=== PATIENT | male | born 1940 | race Caucasian/White ===

== ENCOUNTER 2022-12-27 22:08 | Emergency (ER) | payer MEDICARE, SELFPAY ==
[2022-12-27] VITALS (14 sets, daily range): BP systolic 107–172; BP diastolic 51–61; PULSE 42–61; RESP 14–27; TEMP 36.6; O2SAT 93–100; BMI 28.5
--- NOTE | 2022-12-27 22:26 | ED.GENADUL1 ---
HPI - General Adult General Chief complaint: Chest Pain Stated complaint: CHEST PAIN Time Seen by Provider: 12/27/22 22:15 Source: patient Mode of arrival: walk-in Limitations: no limitations History of Present Illness HPI narrative: patient presents complaining of dyspnea for the past week with exertion. States he will become short of breath just walking up the stairs from the basement and his heart will race. He is diabetic. No associated chest pain or nausea. Has not been coughing. No ankle edema states his PCP has him keeping a log of his heart rate at home. States his heart rate has been as low as 42 Onset (ago): week(s) Related Data Allergies Allergy/AdvReac Type Severity Reaction Status Date / Time No Known Drug Allergies Allergy Verified 12/27/22 22:14 Review of Systems ROS Status of ROS 10 or more systems reviewed and unremarkable except as noted in history and below Exam Constitutional Vital Signs, click to edit/add: Last Vital Signs Temp 97.9 F 12/27/22 22:14 Pulse 46 L 12/28/22 01:28 Resp 16 12/28/22 01:28 BP 137/54 12/28/22 01:28 Pulse Ox 97 12/28/22 01:28 O2 Del Method Room Air 12/27/22 22:14 Common normals: no apparent distress, average body habitus, oriented x3, no limitations and healthy appearing Eye Common normals: EOMs intact bilaterally and conjunctivae normal Respiratory Common normals: normal respiratory effort, no retractions, no use of accessory muscles and clear to auscultation bilaterally Cardio Common normals: regular rate, regular rhythm, S1 normal heart sound and S2 normal heart sound GI Common normals: Normal to inspection, nondistended, normoactive bowel sounds present, soft to palpation and non-tender Extremity Common normals: normal to inspection and full ROM Neuro Common normals: oriented x3, CN's II-XII intact bilaterally, moves all extremities and no focal motor deficits Psych Appearance: grossly normal Course Vital Signs Vital signs: Vital Signs Temperature 97.9 F 12/27/22 22:14 Pulse Rate 47 L 12/27/22 22:14 Respiratory Rate 16 12/27/22 22:14 Blood Pressure 172/61 H 12/27/22 22:14 Pulse Oximetry 97 12/27/22 22:14 Oxygen Delivery Method Room Air 12/27/22 22:14 Temperature 97.9 F 12/27/22 22:14 Pulse Rate 46 L 12/28/22 01:28 Respiratory Rate 16 12/28/22 01:28 Blood Pressure 137/54 12/28/22 01:28 Pulse Oximetry 97 12/28/22 01:28 Oxygen Delivery Method Room Air 12/27/22 22:14 Medical Decision Making MDM Narrative Medical decision making narrative: patient presents with dyspnea on exertion and bradycardia. Monitor with junctional bradycardia. Troponin is neg. CBC WNL. BMP pending. cxray is clear. Discussed with the Hospitalist who was uncomfortable with the patient staying here without cardiology services. Discussed with hospitalist at [facility] and patient accepted in transfer several times during observation his heart rate would decrease to 40. monitor strip re evaluated several times and remain unchanged with a junctional bradycardia Lab Data Labs: Lab Results 12/27/22 12/28/22 Range/Units 22:27 00:32 WBC 6.9 (4.0-11.0) 10^3/uL RBC 4.40 L (4.70-6.10) 10^6/uL Hgb 13.5 L (14.0-18.0) g/dL Hct 41.0 L (42.0-54.0) % MCV 93.2 (80.0-94.0) fL MCH 30.7 (25.9-34.0) pg MCHC 32.9 (29.9-35.2) g/dL RDW 13.7 (11.0-15.0) % Plt Count 162 (150-450) 10^3/uL MPV 9.4 L (9.5-13.5) fL Neut % (Auto) 43.2 (43.0-75.0) % Lymph % (Auto) 44.2 (20.5-60.0) % Sanders % (Auto) 9.6 (1.7-12.0) % Eos % (Auto) 1.9 (0.9-7.0) % Baso % (Auto) 0.7 (0.2-2.0) % Neut # (Auto) 3.0 (1.4-6.5) 10^3/uL Lymph # (Auto) 3.0 (1.2-3.8) 10^3/uL Sanders # (Auto) 0.7 (0.3-0.8) 10^3/uL Eos # (Auto) 0.1 (0.0-0.7) 10^3/uL Baso # (Auto) 0.1 (0.0-0.1) 10^3/uL Abs Immat Gran (auto) 0.03 (0.00-0.03) 10^3/uL Imm/Tot Granulo (auto) 0.4 (0.0-0.5) % Carbon Dioxide 26.5 (21.0-32.0) mmol/L Anion Gap 4.5 BUN 29.0 H (7.0-18.0) mg/dL Creatinine 1.73 H (0.70-1.30) mg/dL Est GFR ( Amer) 46 L (>=60) Est GFR (Non-Af Amer) 38 L (>=60) BUN/Creatinine Ratio 16.8 Glucose 256 H (74-106) mg/dL Calcium 8.6 (8.5-10.1) mg/dL Troponin I High Sens 20.1 20.4 (4.0-76.1) pg/mL NT-Pro-B Natriuret Pep 177.0 (<=1800.0) pg/mL Critical Care Time Critical Care Time Total Critical Care Time: 60 Discharge Plan Discharge Chief Complaint: Chest Pain Clinical Impression: Dyspnea on effort, Junctional bradycardia Patient Disposition: er Acute Care Hospital Discharge Location: [facility]
--- NOTE | 2022-12-27 22:29 | XR_ITS ---
[address] [address] Patient Name: JOSE MIGUEL ANDERSON MRN: [id number] date: 1940 Sex: M Assigned Patient Location: ER Current Patient Location: ED.MAIN Accession/Order Number: [id number] Exam Date: 12/27/2022 22:40 Report Date: 12/27/2022 23:19 At the request of: STANLEY DEARS Procedure: XR chest 1V EXAM: XR chest 1V HISTORY: dyspnea COMPARISON: Chest x-ray 11/28/2020 TECHNIQUE: Single AP radiograph of the chest FINDINGS: No pneumothorax, pleural effusion or consolidation. Normal heart size. No acute osseous abnormality. XR/XR chest 1V IMPRESSION: No acute cardiopulmonary process. Electronically authenticated by: CHARLIE RODRIGUEZ Date: 12/27/2022 23:19
--- NOTE | 2022-12-27 22:29 | ECG_ITS ---
[facility] Test Date: 2022-12-28 Pat Name: JOSE MIGUEL ANDERSON Department: Room: - Gender: Male [employer] Supervisor: : 1940 Requested By: [id number] Order Number: [id number] Reading MD: MARIA ANTONIA BARRIENTOS Measurements Intervals Irwin Rate: 44 P: -[id number] GA: -[id number] QRS: -84 QRSD: 110 T: 1 QT: 448 QTc: 397 Interpretive Statements 1430 Undetermined rhythm (Possible supraventricular bradycardia) 1470 with occasional supraventricular premature complexes 2420 RSR (QR) in lead V1/V2, consistent with right ventricular conduction delay 3334 Anterolateral myocardial infarction, age undetermined 3634 Inferior myocardial infarction, age undetermined [address] depression 8102 Low QRS voltage in chest leads 9150 abnormal ECG No previous ECG available for comparison Electronically Signed On 12-28-2022 18:20:23 EDT by MARIA ANTONIA BARRIENTOS
[2022-12-27 22:54] LABS: Basophils Absolute Auto 0.1 10^3/uL (0.0-0.1); Basophils Percent Auto 0.7 % (0.2-2.0); Eosinophils Absolute Auto 0.1 10^3/uL (0.0-0.7); Eosinophils Percent Auto 1.9 % (0.9-7.0); Hemoglobin 13.5 g/dL (14.0-18.0); Immature Granulocytes Abs Auto 0.03 10^3/uL (0.00-0.03); Immature Granulocytes Pct Auto 0.4 % (0.0-0.5); Lymphocytes Percent Auto 44.2 % (20.5-60.0); Mean Corpuscular HGB Conc 32.9 g/dL (29.9-35.2); Mean Corpuscular Hemoglobin 30.7 pg (25.9-34.0); Mean Corpuscular Volume 93.2 fL (80.0-94.0); Mean Platelet Volume 9.4 fL (9.5-13.5); Monocytes Absolute Auto 0.7 10^3/uL (0.3-0.8); Monocytes Percent Auto 9.6 % (1.7-12.0); Neutrophils Percent Auto 43.2 % (43.0-75.0); Platelet Count 162 10^3/uL (150-450); Red Cell Distribution Width 13.7 % (11.0-15.0); White Blood Count 6.9 10^3/uL (4.0-11.0)
[2022-12-27 23:44] LABS: BUN Creatinine Ratio 16.8; Calcium 8.6 mg/dL (8.5-10.1); Carbon Dioxide 26.5 mmol/L (21.0-32.0); Estimated GFR (African America 46 (>=60); Estimated GFR (Non-African Ame 38 (>=60); Glucose 256 mg/dL (74-106); Troponin I High Sensitivity 20.1 pg/mL (4.0-76.1)
[2022-12-28] VITALS (53 sets, daily range): BP systolic 119–143; BP diastolic 42–74; PULSE 40–84; RESP 14–33; O2SAT 89–99
[2022-12-28 00:53] LABS: Troponin I High Sensitivity 20.4 pg/mL (4.0-76.1)
[2022-12-28] MEDS: ATROPINE SULFATE 1 MG/10 ML SYRINGE IVP (04:00)
[2022-12-28 05:01] LABS: Chloride 104 mmol/L (98-107); Potassium 4.4 mmol/L (3.5-5.1); Sodium 140 mmol/L (136-145)
[2022-12-28 05:55] LABS: Anion Gap 13.9
== END 2022-12-28 08:54 | disposition short-term general hospital (02) ==
PROVIDERS: Emergency Provider Internal Medicine; PCP Internal Medicine
DX: R00.1 Bradycardia, unspecified (principal); R06.09 Other forms of dyspnea; E11.9 Type 2 diabetes mellitus without complications
CPT/HCPCS: 36415; 71045; 80048; 83880; 84484; 85025; 93005; 96374; 99285

== ENCOUNTER 2023-06-12 10:21 | Outpatient (OUT) | payer MEDICARE, SELFPAY ==
--- OUTSIDE RECORDS SUMMARY | 2023-06-12 10:34 | XMS_ITS | CCD ---
Author Organization [facility] Care Team Providers Care Gun Barrel Finisher Name Role Phone VINODONE, DR ROGERS Admitting Unavailable VALONE, DR ROGERS Attending Unavailable VALONE, DR ROGERS Primary Care Unavailable VALONE, DR ROGERS Consulting Unavailable VALONE, DR ROGERS Admitting Unavailable VALONE, DR ROGERS Attending Unavailable VALONE, DR ROGERS Primary Care Unavailable VALONE, DR ROGERS Consulting Unavailable VALONE, DR ROGERS Admitting Unavailable VALONE, DR ROGERS Attending Unavailable VALONE, DR ROGERS Primary Care Unavailable VALONE, DR ROGERS Consulting Unavailable Valone, JR Hugo Ferris Primary Care Provider DO Jarred Cline Admit Provider [phone] MD Katie Osborne Attending Provider SULEIMAN Prakash Other Provider Unavailable DO Aretha Chaparro Other Provider MD Stephanie Steward Other Provider MD Henrry Issa Other Provider MD Farzana Escalera Other Provider MD Hugo Johnson Other Provider BHAVIN Gregorio Other Provider MD Natacha Padron Other Provider MD Kang Douglas Other Provider MD Jordan Bolanos Other Provider Crissy [facility] Nikia Ferris Other Provider MD Lauren Steiner Other Provider JR Hugo Moser Primary Care Provider [phone] DO Jarred Cline Admit Provider [phone] MD Katie Osborne Attending Provider [phone] SULEIMAN Prakash Other Provider Unavailable DO Aretha Chaparro Other Provider MD Stephanie Steward Other Provider MD Henrry Issa Other Provider MD Farzana Escalera Other Provider MD Hugo Johnson Other Provider BHAVIN Gregorio Other Provider MD Natacha Padron Other Provider MD Kang Douglas Other Provider MD Jordan Bolanos Other Provider Crissy [facility] Nikia Ferris Other Provider MD Lauren Steiner Other Provider [phone] MD Henrry Issa Attending Provider Hugo Moser DO Primary Care Provider HENRRY ISSA Referring Unavailable HUGO MOSER Primary Care UnavailHENRRY Brito Attending Unavailable HUGO MOSER Primary Care UnavailHENRRY Brito Referring Unavailable Hugo Moser MD Primary Care Provider [phone] JR Hugo Moser Primary Care Provider [phone] MD Henrry Issa Referring Provider BHAVIN Gregorio Attending Provider Hugo Moser Primary Care Unavailable Henrry Issa Referring Unavail able Sangita Salas Admitting Unavailable Sangita Salas Attending Unavailable Hugo Moser Primary Care Unavailable Henrry Issa Admitting Unavail able Henrry Issa Attending Unavail able Katie Osborne Attending Unavailable Jarred Cline Admitting Unavailable Hugo Moser Primary Care Unavailable Ana Maria Prakash Consulting Unavailable Aretha Chaparro Consulting Unavailable Stephanie Steward Consulting Unavailable Henrry Issa Consulting Unavail able Farzana Escalera Consulting Unavailable Hugo Johnson Consulting Unavailab Sangita Montalvo Consulting Unavailable Natacha Padron Consulting Unavailable Kang Douglas Consulting Unavailab Jordan Carty Consulting Unavailable Nikia Woodward Consulting Unavailable Lauren Steiner Consulting Unavailable TRIP BROWN Attending Unavailable TRIP BROWN Referring Unavailable JR. CÁRDENAS GEORGE C Attending Unavailpamela ble Allergies Allergy Classification Reported Allergen(s) Allergy Type Date of Onset Reaction(s) Facility (1 source) ALLERGIES NOT ON FILE; Translations: [ALLERGIES NOT ON FILE] Propensity to adverse reactions (disorder) [facility] 3 Repository Medications Current Medications Medication Drug Class(es) Dates Sig (Normalized) Sig (Original) acarbose 100 mg oral tablet (5 sources) alpha-Glucosidase Inhibitor Start: 12-28-2022 take 100 mg by mouth once daily Acarbose Active 100 MG PO Daily December 27, 2022 11:00pm Start: 09-12-2022 take 1 tablet by dannie th three times daily at mealtime acarbose (Precose) 100 mg tablet Take 1 tablet (100 mg) by mouth 3 times a day with meals. 0 09/12/2022 Active acarbose (Precos e) 100 MG tablet 2 (two) times a day 0 Active clindamycin 300 mg oral capsule (3 sources) Lincosamide Antibacterial Start: 12-31-2022 take 600 mg by mouth three times daily Clindamycin Hcl Active 600 MG PO Three times daily 12 2 December 30, 2022 11:00pm doxycycline monohydrate 100 mg oral capsule (1 source) Tetracycline-class Drug Start: 05-12-2022 take 1 capsule by mouth twice daily doxycycline (Monodox) 100 mg capsule Take 1 capsule (100 mg) by mouth 2 times a day. 0 05/12/2022 Active empagliflozin 25 mg oral tablet (5 sources) Sodium-Glucose Cotransporter 2 Inhibitor Start: 11-10-2022 take 1 tablet by mouth once daily Empagliflozin (Jardiance) 25 mg tablet Active 25 MG PO Daily December 27, 2022 11:00pm take 12.5 mg by mouth in the mor harry Jardiance 25 MG Take 12.5 mg by mouth in the morning. 0 Active ezetimibe 10 mg oral tablet (5 sources) Dietary Cholesterol Absorption Inhibitor Start: 12-16-2022 take 10 mg by mouth once daily Ezetimibe Active 10 MG PO Daily December 27, 2022 11:00pm take 5 mg by mouth in the mornin g ezetimibe (Zetia) 10 MG tablet Take 5 mg by mouth in the morning. 0 Active Finerenone (KERENDIA PO) (1 source) Finerenone (KERE NDIA PO) Take by mouth 0 Active 24 hr metFORMIN hydrochloride 1000 mg / SITagliptin 100 mg extended release oral tablet (5 sources) Biguanide, Dipeptidyl Peptidase 4 Inhibitor Start: 3 take 1 tablet by mouth once daily Sitagliptin Phos-Metformin (Janumet Xr) 100-1,000 mg tablet, ER multiphase 24 hr Active 100 - 1000 TAB PO Daily December 27, 2022 11:00pm take 1 tablet by dannie th every twenty-four hours in the morning Janumet XR 100-1000 MG per 24 hr tablet Take 1 tablet by mouth in the morning. 0 Active rivaroxaban 20 mg oral tablet (4 sources) Factor Xa Inhibitor Start: 12-08-2022 Rivaroxaban (Xarelto) 20 mg tablet Active MG TABLET December 29, 2022 11:00pm rosuvastatin calcium 40 mg oral tablet (5 sources) HMG-CoA Reductase Inhibitor Start: 11-11-2022 take 40 mg by mouth once daily Rosuvastatin Active 40 MG PO Daily December 27, 2022 11:00pm sacubitril 24 mg / valsartan 26 mg oral tablet (6 sources) Angiotensin 2 Receptor Maria Victoria Start: 12-28-2022 End: 01-14-2023 take 1 tablet by mouth once daily Sacubitril-Valsart an (Entresto) 24-26 mg Tablet Active 1 TAB PO Daily December 27, 2022 11:00pm Sacubitril-Valsa rtan (ENTRESTO PO) Take by mouth 0 Active Completed/Discontinued Medications Medication Drug Class(es) Dates Sig (Normalized) Sig (Original) 5 ml bupivacaine hydrochloride 5 mg/ml injection (2 sources) Amide Local Anesthetic Start: End: 4 bupivacaine PF (Marcaine) 0.5 % injection 0.5 mL losartan potassium 25 mg oral tablet (1 source) Angiotensin 2 Receptor Maria Victoria Start: 3 End: 3 take 1 tablet by mouth once daily before mealtime losartan (Cozaar) 25 mg tablet Take 1 tablet (25 mg) by mouth once daily in the morning. Take before meals. 0 06/12/2022 01/14/2023 Discontinued (Discontinued by another clinician) 1 ml methylPREDNISolone acetate 40 mg/ml injection (2 sources) Corticosteroid Start: 4 End: 4 methylPREDNISolone acetate (DEPO-Medrol) injection 40 mg Problems Active Problems Problem Classification Problem Date Documented Da te Episodic/Chronic Cardiac dysrhythmias (6 sources) Bradycardia; Translations: [Bradycardia, unspecified] 12-31-2022 Episodic Conduction disorders (18 sources) Mobitz type II atrioventricular block; Translations: [Atrioventricular block, second degree] Onset: 3 12-29-2022 Chronic Congestive heart failure; nonhypertensive (4 sources) Chronic diastolic (congestive) heart failure; Translations: [CHRONIC DIASTOLIC HEART FAILURE] Onset: 3 Chronic Diabetes mellitus with complications (2 sources) Type 2 diabetes mellitus with hyperglycemia; Translations: [Type 2 diabetes mellitus with diabetic chronic kidney disease] Onset: 2 Chronic Diabetes mellitus without complication (7 sources) Diabetes mellitus; Translations: [Type 2 diabetes mellitus without complications] Onset: 3 12-28-2022 Chronic Disorders of lipid metabolism (1 source) Mixed hyperlipidemia; Translations: [Mixed hyperlipidemia] Onset: 3 01-14-2023 Chronic Essential hypertension (6 sources) Hypertensive disorder; Translations: [Essential (primary) hypertension] Onset: 3 12-28-2022 Chronic Hypertension with complications and secondary hypertension (1 source) Hypertensive chronic kidney disease with stage 1 through stage 4 chronic kidney disease, or unspecified chronic kidney disease; Translations: [HTN CKD W/STAGE 1-4 CKD/UNS CKD] Onset: 2 Chronic Osteoarthritis (1 source) Arthritis of right acromioclavicular joint; Translations: [Primary osteoarthritis, right shoulder] 04-08-2023 Chronic Other aftercare (1 source) Other prison (current) drug therapy; Translations: [OTH PRISON 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 THERAPY] Onset: 3 Episodic Other non-traumatic joint disorders (1 source) Rotator cuff arthropathy of right shoulder; Translations: [Other specific arthropathies, not elsewhere classified, right shoulder] 04-08-2023 Chronic Other non-traumatic joint disorders (1 source) Pain in right shoulder; Translations: [Pain in joint, shoulder region] 04-07-2023 Episodic Other nutritional; endocrine; and metabolic disorders (2 sources) Obese class I; Translations: [Obesity, unspecified] Onset: 3 01-14-2023 Chronic Other nutritional; endocrine; and metabolic disorders (2 sources) Obesity, unspecified; Translations: [Obesity, unspecified] Onset: 3 Chronic Shauna-; endo-; and myocarditis; cardiomyopathy (except that caused by tuberculosis or sexually transmitted disease) (1 source) Cardiomyopathy; Translations: [Other cardiomyopathies] Onset: 3 01-14-2023 Chronic Phlebitis; thrombophlebitis and thromboembolism (1 source) Deep venous thrombosis; Translations: [Acute embolism and thrombosis of unspecified deep veins of unspecified lower extremity] Onset: 3 01-14-2023 Episodic Unclassified (1 source) CHRN KIDNEY DISEASE STG 3 UNSP; Translations: [CHRN KIDNEY DISEASE STG 3 UNSP] Onset: 2 Unclassified (1 source) Encounter for checking and testing of cardiac pacemaker pulse generator [battery]; Translations: [Encounter for checking and testing of cardiac pacemaker pulse generator [battery]] Onset: 4 Unclassified (1 source) Bradycardia, unspecified; Translations: [Bradycardia, unspecified] Onset: 3 Past or Other Problems Problem Classification Problem Date Documented Da te Episodic/Chronic Acute and unspecified renal failure (6 sources) Acute renal failure syndrome; Translations: [Acute kidney failure, unspecified] Onset: 12-28-2022 12-28-2022 Episodic Unclassified (1 source) Onset: 01-14-2023 01-14-2023 Results Test Name Value Interpretation Reference Range Facility XR chest 2V*on 04-15-2023 XR chest 2V* [facility] Main [address] [address] XRay Report Signed Patient: Emmanuel Anderson MR#: [id number] 49 : 1940 Acct:[id number] Age/Sex: 82 / M ADM Date: 04/15/23 Loc: [facility] Room: Type: [facility] Attending Dr: Sangita Salas FIBERGLASS QUALITY TECHNICIAN Copies to: BHAVIN Beasley MD Ordering Provider: Henrry Issa MD Date of Service: 04/15/23 XR/XR chest 2V*: Z95.0 PA AND LATERAL CHEST: CLINICAL HISTORY: Follow-up pacemaker COMPARISON: 01/08/2023 A left-sided pacemaker is again visualized unchanged from the prior. There is shallow inspiration. There is no developing consolidation, effusion or pneumothorax. The cardiac, hilar and mediastinal silhouettes are stable. There is no vascular congestion. The visualized bony thorax is intact. XR/XR chest 2V* IMPRESSION: STABLE PACEMAKER. NO ACUTE FINDINGS.. Impression dictated by: Niki Scott M.D.04/15/2023 2:33 PM Dictation Location: [place] [address] Transcribed By: [facility] 04/15/23 1433 Dictated By: Niki Scott MD 04/15/23 1431 Signed By: 04/15/23 1433 [facility] L Inj/Asp: R subacromial bur saon 04-08-2023 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 Pt given injection Right Shoulder SA space with 2ml of 2 % lidocaine (Code 41560 RT) Procedure, treatment alternatives, risks and benefits explained, specific risks discussed. Consent was given by the patient. Counts include 234 beds at the [facility] M Inj/Asp: R acromioclavicul garrett 04-08-2023 TODD Driver 04/08/2023 1:57 PM M Inj/Asp: R acromioclavicular on 04/08/2023 1:54 PM Indications: pain Details: 21 G needle, anterolateral approach Medications: 0.5 mL bupivacaine PF 0.5 % Outcome: tolerated well, no immediate complications Given with 0.5ml of 2% lidocaine. Moderate improvement in pain post injection. Procedure, treatment alternatives, risks and benefits explained, specific risks discussed. Consent was given by the patient. Patient was prepped and draped in the usual sterile fashion. Counts include 234 beds at the [facility] XR chest 2V*on 01-08-2023 XR chest 2V* [facility] [place] [place] [address] XRay Report Signed Patient: Emmanuel Anderson MR#: [id number] 49 : 1940 Acct:[id number] Age/Sex: 82 / M ADM Date: 01/08/23 Loc: Room: Type: [facility] Attending Dr: Henrry Issa MD Copies to: Henrry Issa MD Ordering Provider: Henrry Issa MD Date of Service: 01/08/23 XR/XR chest 2V*: I44.1 Plain film chest 2 view HISTORY: Pacemaker insertion. COMPARISON: 12/31/22 FINDINGS: SUPPORT DEVICES: None POSTSURGICAL CHANGES: Cardiac device remains intact. HEART: Within normal limits PULMONARY [place]: Within normal limits MEDIASTINUM: Unremarkable LUNGS AND PLEURA: No acute lung process, pleural effusion or pneumothorax identified. BONY STRUCTURES: Thoracic spondylosis. ADDITIONAL FINDINGS None XR/XR chest 2V* IMPRESSION: No acute process. Intact cardiac device. Impression dictated by: Bradley Uribe M.D.01/08/2023 5:16 PM Dictation Location: [place] [address] Transcribed By: [facility] 01/08/231715 Dictated By: Bradley Uribe DO 01/08/231714 Signed By: 01/08/231715 [facility] Basic Metabolic Panelon 11-0 Anion gap [Moles/Vol] 12.2 mmol/L Normal 6.0-15.0 [facility] Comment on above: Performed By: #### C BC, BMP, MG ####[facility] [address] [place] [address] [facility] Calcium [Mass/Vol] 8.9 mg/dL Normal 8.6-10.3 [facility] Comment on above: Performed By: #### C BC, BMP, MG ####[facility] [place] [address] [place] Chloride [Moles/Vol] 106 mmol/L Normal 98-107 [facility] Comment on above: Performed By: #### C BC, BMP, MG ####[facility] [place] [address] [facility] CO2 [Moles/Vol] 22.9 mmol/L Normal 21.0-31.0 [facility] Comment on above: Performed By: #### C BC, BMP, MG ####[place] [address] [place] [address] [facility] Creatinine [Mass/Vol] 1.20 mg/dL Normal 0.70-1.30 [facility] Comment on above: Performed By: #### C BC, BMP, MG ####[place] [address] [place] [address] [place] Creatinine Clr Calc Pharmacy 48.99 [facility] Comment on above: Performed By: #### C BC, BMP, MG ####[facility] [place] [address] [place] GFR/1.73 sq M.predicted MDRD (S/P/Bld) [Vol rate/Area] mL/min/{1.73_m2} [facility] Comment on above: Performed By: #### C BC, BMP, MG ####[place] [address] [place] [address] [facility] Glucose [Mass/Vol] 175 mg/dL High 70-100 [facility] Comment on above: Result Comment: [place] Glucose Reference Range is dependent on time and content of last meal. Glucose of more than 200 mg/dL in a nonstressed, ambulatory subject supports the diagnosis of Diabetes Mellitus. ADA recommended reference range Performed By: #### C BC, BMP, MG ####[facility] [address] [place] [address] [facility] Potassium [Moles/Vol] 4.1 mmol/L Normal 3.5-5.1 [facility] Comment on above: Performed By: #### C BC, BMP, MG ####[facility] [address] [place] [id number] [facility] Sodium [Moles/Vol] 137 mmol/L Normal 136-145 [facility] Comment on above: Performed By: #### C BC, BMP, MG ####[facility] [address] [place] [id number] [facility] Urea nitrogen [Mass/Vol] 23 mg/dL Normal 7-25 [facility] Comment on above: Performed By: #### C BC, BMP, MG ####[facility] [address] [place] [id number] [facility] Basophils Auto (Bld) [#/Vol] Ordered By: Jarred Cline on 12-31-2022 Basophils (Bld) [#/Vol] 0.0 10*3/uL 0.0-0.2 [facility] Basophils/100 WBC Auto (Bld) Ordered By: Jarred Cline on 12-31-2022 Basophils/100 WBC (Bld) 0.6 % . [facility] Calcium [Mass/volume] in Ser um or PlasmaOrdered By: Jarred Cline on 12-31-2022 Calcium [Mass/Vol] 8.9 mg/dL 8.6-10.3 [facility] Carbon dioxide, total [Moles /volume] in Serum or PlasmaOrdered By: Jarred Cline on 12-31-2022 CO2 [Moles/Vol] 22.9 mmol/L 21.0-31.0 [facility] Chloride [Moles/volume] in S chiquis or PlasmaOrdered By: Jarred Cline on 12-31-2022 Chloride [Moles/Vol] 106 mmol/L 98-107 [facility] Complete Blood Count Auto Di ffon 12-31-2022 Basophils (Bld) [#/Vol] 0.0 10*3/uL Normal 0.0-0.2 [facility] Comment on above: Result Comment: PERF ORMED BY: [facility] [address] [place] [address] PATHOLOGIST HYDRAULIC BOOM OPERATOR GENNY MCMULLEN M.D. Performed By: #### C BC, BMP, MG ####[place] [address] [place] [id number] [facility] Basophils/100 WBC (Bld) 0.6 % Normal . [facility] Comment on above: Performed By: #### C BC, BMP, MG ####[address] Eosinophils (Bld) [#/Vol] 0.1 10*3/uL Normal 0.0-0.45 [facility] Comment on above: Performed By: #### C BC, BMP, MG ####[address] Eosinophils/100 WBC (Bld) 1.6 % Normal . [facility] Comment on above: Performed By: #### C BC, BMP, MG ####[place] [id number] [facility] Erythrocyte distribution width (RBC) [Ratio] 14.9 % High 12.0-14.8 [facility] Comment on above: Performed By: #### C BC, BMP, MG ####[place] [id number] [facility] Hematocrit (Bld) [Volume fraction] 39.1 % Normal 38.8-50.0 [facility] Comment on above: Performed By: #### C BC, BMP, MG ####[place] [id number] [facility] Hemoglobin (Bld) [Mass/Vol] 13.0 g/dL Normal 13.0-17.0 [facility] Comment on above: Performed By: #### C BC, BMP, MG ####[place] [id number] [facility] Lymphocytes (Bld) [#/Vol] 1.9 10*3/uL Normal 1.00-4.8 [facility] Comment on above: Performed By: #### C BC, BMP, MG ####[address] Lymphocytes/100 WBC (Bld) 27.7 % Normal . [facility] Comment on above: Performed By: #### C BC, BMP, MG ####[place] [id number] [facility] MCH (RBC) [Entitic mass] 30.5 pg Normal 27.5-35.2 [facility] Comment on above: Performed By: #### C BC, BMP, MG ####[address] MCV (RBC) [Entitic vol] 91.5 fL Normal 83.5-101 [facility] Comment on above: Performed By: #### C BC, BMP, MG ####[address] Mean Corpuscular HGB Conc 33.3 g/dL Normal 32.5-35.6 [facility] Comment on above: Performed By: #### C BC, BMP, MG ####[address] Monocytes (Bld) [#/Vol] 0.6 10*3/uL Normal 0.0-0.8 [facility] Comment on above: Performed By: #### C BC, BMP, MG ####[address] Monocytes/100 WBC (Bld) 8.9 % Normal . [facility] Comment on above: Performed By: #### C BC, BMP, MG ####[address] Neutrophils (Bld) [#/Vol] 4.1 10*3/uL Normal 1.8-7.7 [facility] Comment on above: Performed By: #### C BC, BMP, MG ####[address] Neutrophils/100 WBC (Bld) 61.2 % Normal . [facility] Comment on above: Performed By: #### C BC BMP, MG ####[address] NRBC% 0.0 /100{WBC} Normal 0-0.5 [facility] Comment on above: Performed By: #### C BC BMP, MG ####[address] Platelet mean volume (Bld) [Entitic vol] 7.2 fL Normal 6.6-10.1 [facility] Comment on above: Performed By: #### C GILBERTO BMP, MG ####[address] Platelets (Bld) [#/Vol] 148 10*3/uL Low 150-450 [facility] Comment on above: Performed By: #### C BC BMP, MG ####[address] RBC (Bld) [#/Vol] 4.27 10*6/uL Normal 3.90-5.60 [facility] Comment on above: Performed By: #### C BC BMP, MG ####[address] WBC (Bld) [#/Vol] 6.7 10*3/uL Normal 4.1-10.5 [facility] Comment on above: Performed By: #### Elias BC BMP, MG ####[address] Creatinine [Mass/volume] in Serum or PlasmaOrdered By: Jarred Cline on 12-31-2022 Creatinine [Mass/Vol] 1.20 mg/dL 0.70-1.30 [facility] Eosinophils Auto (Bld) [#/Vo l]Ordered By: Jarred Cline on 12-31-2022 Eosinophils (Bld) [#/Vol] 0.1 10*3/uL 0.0-0.45 [facility] Eosinophils/100 WBC Auto (Bl d)Ordered By: Jarred Cline on 12-31-2022 Eosinophils/100 WBC (Bld) 1.6 % . [facility] Erythrocyte distribution wid th Auto (RBC) [Ratio]Ordered By: Jarred Cline on 12-31-2022 Erythrocyte distribution width (RBC) [Ratio] 14.9 % 12.0-14.8 [facility] Glucose [Mass/volume] in Ser um or PlasmaOrdered By: Jarred Cline on 12-31-2022 Glucose [Mass/Vol] 175 mg/dL 70-100 [facility] Comment on above: ADA recommended refe rence rangeRandom Glucose Reference Range is dependent on time and content of last meal. Glucose of more than 200 mg/dL in a nonstressed, ambulatory subject supports the diagnosis of Diabetes Mellitus. Hematocrit Auto (Bld) [Volum e fraction]Ordered By: Jarred Cline on 12-31-2022 Hematocrit (Bld) [Volume fraction] 39.1 % 38.8-50.0 [facility] Hemoglobin [Mass/volume] in BloodOrdered By: Jarred Cline on 12-31-2022 Hemoglobin (Bld) [Mass/Vol] 13.0 g/dL 13.0-17.0 [facility] Leukocytes [#/volume] correc adela for nucleated erythrocytes in Blood by Automated counOrdered By: Jarred Cline on 12-31-2022 WBC corrected for nucl RBC Auto (Bld) [#/Vol] 6.7 10*3/uL 4.1-10.5 [facility] Lymphocytes Auto (Bld) [#/Vo l]Ordered By: Jarred Cline on 12-31-2022 Lymphocytes (Bld) [#/Vol] 1.9 10*3/uL 1.00-4.8 [facility] Lymphocytes/100 WBC Auto (Bl d)Ordered By: Jarred Cline on 12-31-2022 Lymphocytes/100 WBC (Bld) 27.7 % . [facility] MCH Auto (RBC) [Entitic mass ]Ordered By: Jarred Cilne on 12-31-2022 MCH (RBC) [Entitic mass] 30.5 pg 27.5-35.2 [facility] MCHC Auto (RBC) [Mass/Vol]Or dered By: Jarred Cline on 12-31-2022 MCHC (RBC) [Mass/Vol] 33.3 g/dL 32.5-35.6 [facility] MCV Auto (RBC) [Entitic vol] Ordered By: Jarred Cline on 12-31-2022 MCV (RBC) [Entitic vol] 91.5 fL 83.5-101 [facility] Magnesiumon 12-31-2022 Magnesium [Mass/Vol] 2.1 mg/dL Normal 1.9-2.7 [facility] Comment on above: Result Comment: PERF ORMED BY: [facility] [address] [place] [address] PATHOLOGIST HYDRAULIC BOOM OPERATOR GENNY MCMULLEN M.D. Performed By: #### C BC, BMP, MG ####[facility] [id number] [place] [address] [facility] Magnesium [Mass/volume] in S chiquis or PlasmaOrdered By: Jarred Cline on 12-31-2022 Magnesium [Mass/Vol] 2.1 mg/dL 1.9-2.7 [facility] Monocytes Auto (Bld) [#/Vol] Ordered By: Jarred Cline on 12-31-2022 Monocytes (Bld) [#/Vol] 0.6 10*3/uL 0.0-0.8 [facility] Monocytes/100 WBC Auto (Bld) Ordered By: Jarred Cline on 12-31-2022 Monocytes/100 WBC (Bld) 8.9 % . [facility] Neutrophils Auto (Bld) [#/Vo l]Ordered By: Jarred Cline on 12-31-2022 Neutrophils (Bld) [#/Vol] 4.1 10*3/uL 1.8-7.7 [facility] Neutrophils/100 WBC Auto (Bl d)Ordered By: Jarred Cline on 12-31-2022 Neutrophils/100 WBC (Bld) 61.2 % . [facility] No Panel InformationOrdered By: Jarred Cline on 11-01-2023 Estimated GFR (CKD-EPI) > 60.0 mL/Min [facility] Creatinine Clearance (Chem 48.99 [facility] Nucleated erythrocytes [Pres ence] in Blood by Automated countOrdered By: Jarred Cline on 12-31-2022 Nucleated RBC Auto Ql (Bld) 0.0 /100{WBC} 0-0.5 [facility] Platelet mean volume Auto (B ld) [Entitic vol]Ordered By: Jarred Cline on 12-31-2022 Platelet mean volume (Bld) [Entitic vol] 7.2 fL 6.6-10.1 [facility] Platelets Auto (Bld) [#/Vol] Ordered By: Jarred Cline on 12-31-2022 Platelets (Bld) [#/Vol] 148 10*3/uL 150-450 [facility] Potassium [Moles/volume] in Serum or PlasmaOrdered By: Jarred Cline on 12-31-2022 Potassium [Moles/Vol] 4.1 mmol/L 3.5-5.1 [facility] RBC Auto (Bld) [#/Vol]Ordere d By: Jarred Cline on 12-31-2022 RBC (Bld) [#/Vol] 4.27 10*6/uL 3.90-5.60 [facility] Serum or plasma anion gap de terminationOrdered By: Jarred Cline on 12-31-2022 Anion gap [Moles/Vol] 12.2 mmol/L 6.0-15.0 [facility] Sodium [Moles/volume] in Ser um or PlasmaOrdered By: Jarred Cline on 12-31-2022 Sodium [Moles/Vol] 137 mmol/L 136-145 [facility] Urea nitrogen [Mass/volume] in Serum or PlasmaOrdered By: Jarred Cline on 12-31-2022 Urea nitrogen [Mass/Vol] 23 mg/dL 7-25 [facility] WBC Auto (Bld) [#/Vol]Ordere d By: Jarred Cline on 12-31-2022 WBC (Bld) [#/Vol] 6.7 10*3/uL 4.1-10.5 [facility] XR chest 2V*on 12-31-2022 XR chest 2V* [facility] [place] [address] [place] [address] XRay Report Signed Patient: Emmanuel Anderson MR#: [id number] 49 : 1940 Acct:[id number] Age/Sex: 82 / M ADM Date: 12/28/22 Loc: Room: [address] [place] [address] Type: ADM IN Attending Dr: Katie Osborne MD Copies to: MD Henrry Cartwright MD Ordering Provider: Henrry Issa MD Date of Service: 12/31/22 XR/XR chest 2V*: Rule out pneumothorax on only new implants cases in am Plain film chest 2 view HISTORY: Postop pacemaker placement COMPARISON: 12/30/22 FINDINGS: SUPPORT DEVICES: None POSTSURGICAL CHANGES: Cardiac device remains intact. HEART: Within normal limits PULMONARY [place]: Within normal limits MEDIASTINUM: Unremarkable LUNGS AND PLEURA: No acute lung process, pleural effusion or pneumothorax identified. Calcified pleural plaquing. The minimal basilar scarring/atelectasis. BONY STRUCTURES: Intact ADDITIONAL FINDINGS None XR/XR chest 2V* IMPRESSION: No acute process. Impression dictated by: Bradley Uribe M.D.12/31/2022 8:03 AM Dictation Location: [place] [address] Transcribed By: [facility] 12/31/22 0803 Dictated By: Bradley Uribe DO 12/31/22 0801 Signed By: 12/31/22 0803 Normal [facility] Activated partial thrombopla stin time (aPTT) in platelet poor plasma by coagulation aOrdered By: Henrry Issa on 12-30-2022 aPTT Coag (PPP) [Time] 30.2 s 25.1-36.5 [facility] Comment on above: A hematocrit value g reater than 55% may lead to inaccurate results in coagulation testing. Patients having hematocrit values >55% require a special collection tube for coagulation studies. Please contact the laboratory at [phone] for redraw instructions. Basic Metabolic Panelon 10-3 Anion gap [Moles/Vol] 10.6 mmol/L Normal 6.0-15.0 [facility] Comment on above: Performed By: #### M G, PTT, PT, CBC, BMP #### [facility] [address] Calcium [Mass/Vol] 9.4 mg/dL Normal 8.6-10.3 [facility] Comment on above: Performed By: #### M G, PTT, PT, CBC, BMP #### [facility] [address] Chloride [Moles/Vol] 107 mmol/L Normal 98-107 [facility] Comment on above: Performed By: #### M G, PTT, PT, CBC, BMP #### [facility] [address] CO2 [Moles/Vol] 27.0 mmol/L Normal 21.0-31.0 [facility] Comment on above: Performed By: #### M G, PTT, PT, CBC, BMP #### [facility] [address] [place] [address] [place] Creatinine [Mass/Vol] 1.58 mg/dL High 0.70-1.30 [facility] Comment on above: Performed By: #### M G, PTT, PT, CBC, BMP #### [facility] [address] [place] [address] [place] Creatinine Clr Calc Pharmacy 37.51 [facility] Comment on above: Performed By: #### M G, PTT, PT, CBC, BMP #### [facility] [address] [place] [address] [place] GFR/1.73 sq M.predicted MDRD (S/P/Bld) [Vol rate/Area] 43.132 mL/min/{1.73_m2} [facility] Comment on above: Performed By: #### M G, PTT, PT, CBC, BMP #### [facility] [address] [place] [address] [place] Glucose [Mass/Vol] 254 mg/dL High 70-100 [facility] Comment on above: Result Comment: [place] Glucose Reference Range is dependent on time and content of last meal. Glucose of more than 200 mg/dL in a nonstressed, ambulatory subject supports the diagnosis of Diabetes Mellitus. ADA recommended reference range Performed By: #### M G, PTT, PT, CBC, BMP #### [facility] [address] Potassium [Moles/Vol] 4.6 mmol/L Normal 3.5-5.1 [facility] Comment on above: Performed By: #### M G, PTT, PT, CBC, BMP #### [facility] [address] Sodium [Moles/Vol] 140 mmol/L Normal 136-145 [facility] Comment on above: Performed By: #### M G, PTT, PT, CBC, BMP #### [address] Urea nitrogen [Mass/Vol] 30 mg/dL High 7-25 [facility] Comment on above: Performed By: #### M G, PTT, PT, CBC, BMP #### [address] Complete Blood Count Auto Di ffon 12-30-2022 Basophils (Bld) [#/Vol] 0.1 10*3/uL Normal 0.0-0.2 [facility] Comment on above: Result Comment: PERF ORMED BY: [place] [address] PATHOLOGIST HYDRAULIC BOOM OPERATOR GENNY MCMULLEN M.D. Performed By: #### M G, PTT, PT, CBC, BMP #### [place] [address] [place] Basophils/100 WBC (Bld) 1.1 % Normal . [facility] Comment on above: Performed By: #### M G, PTT, PT, CBC, BMP #### [address] Eosinophils (Bld) [#/Vol] 0.1 10*3/uL Normal 0.0-0.45 [facility] Comment on above: Performed By: #### M G, PTT, PT, CBC, BMP #### [address] Eosinophils/100 WBC (Bld) 1.7 % Normal . [facility] Comment on above: Performed By: #### M G, PTT, PT, CBC, BMP #### [address] Erythrocyte distribution width (RBC) [Ratio] 15.2 % High 12.0-14.8 [facility] Comment on above: Performed By: #### M G, PTT, PT, CBC, BMP #### [address] Hematocrit (Bld) [Volume fraction] 41.4 % Normal 38.8-50.0 [facility] Comment on above: Performed By: #### M G, PTT, PT, CBC, BMP #### [address] Hemoglobin (Bld) [Mass/Vol] 13.8 g/dL Normal 13.0-17.0 [facility] Comment on above: Performed By: #### M G, PTT, PT, CBC, BMP #### [address] Lymphocytes (Bld) [#/Vol] 1.9 10*3/uL Normal 1.00-4.8 [facility] Comment on above: Performed By: #### M G, PTT, PT, CBC, BMP #### [address] Lymphocytes/100 WBC (Bld) 31.9 % Normal . [facility] Comment on above: Performed By: #### M G, PTT, PT, CBC, BMP #### [address] MCH (RBC) [Entitic mass] 30.5 pg Normal 27.5-35.2 [facility] Comment on above: Performed By: #### M G, PTT, PT, CBC, BMP #### [facility] [address] [place] [address] MCV (RBC) [Entitic vol] 91.5 fL Normal 83.5-101 [facility] Comment on above: Performed By: #### M G, PTT, PT, CBC, BMP #### [address] Mean Corpuscular HGB Conc 33.3 g/dL Normal 32.5-35.6 [facility] Comment on above: Performed By: #### M G, PTT, PT, CBC, BMP #### [address] Monocytes (Bld) [#/Vol] 0.6 10*3/uL Normal 0.0-0.8 [facility] Comment on above: Performed By: #### M G, PTT, PT, CBC, BMP #### [address] Monocytes/100 WBC (Bld) 9.6 % Normal . [facility] Comment on above: Performed By: #### M G, PTT, PT, CBC, BMP #### [address] Neutrophils (Bld) [#/Vol] 3.3 10*3/uL Normal 1.8-7.7 [facility] Comment on above: Performed By: #### M G, PTT, PT, CBC, BMP #### [address] Neutrophils/100 WBC (Bld) 55.7 % Normal . [facility] Comment on above: Performed By: #### M G, PTT, PT, CBC, BMP #### [address] NRBC% 0.1 /100{WBC} Normal 0-0.5 [facility] Comment on above: Performed By: #### M G, PTT, PT, CBC, BMP #### [address] Platelet mean volume (Bld) [Entitic vol] 7.1 fL Normal 6.6-10.1 [facility] Comment on above: Performed By: #### M G, PTT, PT, CBC, BMP #### [facility] [address] Platelets (Bld) [#/Vol] 168 10*3/uL Normal 150-450 [facility] Comment on above: Performed By: #### M G, PTT, PT, CBC, BMP #### [facility] [address] RBC (Bld) [#/Vol] 4.52 10*6/uL Normal 3.90-5.60 [facility] Comment on above: Performed By: #### M G, PTT, PT, CBC, BMP #### [facility] [address] WBC (Bld) [#/Vol] 5.9 10*3/uL Normal 4.1-10.5 [facility] Comment on above: Performed By: #### M G, PTT, PT, CBC, BMP #### [facility] [address] ECG 12 lead ECGon 12-30-2022 ECG 12 lead ECG [facility] [place] [address] [place] [address] Electrocardiograph Report Signed Patient: Emmanuel Anderson MR#: [id number] 49 : 1940 Acct:[id number] Age/Sex: 82 / M ADM Date: 12/28/22 Loc: Room: [address] [place] [address] Type: ADM IN Attending Dr: Katie Osborne MD Ordering Provider: Henrry Issa MD Date of Service: 12/30/22 ECG/ECG 12 lead ECG: pre surgical Copies to: Test Reason : Blood Pressure : / mmHG Vent. Rate : 045 BPM Atrial Rate : 045 BPM P-R Int : 350 ms QRS Dur : 124 ms QT Int : 448 ms P-R-T Axes : 038 -70 035 degrees QTc Int : 387 ms Sinus bradycardia with 1st degree AV block with type I second degree AV block RSR' or QR pattern in V1 suggests right ventricular conduction delay Left anterior fascicular block Anterolateral infarct (cited on or before 28-DEC-2022) Abnormal ECG When compared with ECG of 28-DEC-2022 13:11, No significant change was found Confirmed by KEVIN STALEY [facility], STEPHANIE ([id number]) on 12/30/2022 4:39:33 PM Referred By: Electronically Signed By:STEPHANIE STEWARD MD [facility] Transcribed By: MUS Signed By Stephanie Steward MD, [facility] 12/30/22 1639 Normal [facility] Glucose Glucometer (BldC) [M ass/Vol]Ordered By: Katie Osborne on 12-30-2022 Glucose [Mass/Vol] 183 mg/dL [facility] Comment on above: Random Glucose Refer ence Range is dependent on time and content of last meal. Glucose of more than 200 mg/dL in a nonstressed, ambulatory subject supports the diagnosis of Diabetes Mellitus. Glucose Poct Glucometerson 1 Glucose [Mass/Vol] 183 mg/dL Normal [facility] Comment on above: Result Comment: [place] Glucose Reference Range is dependent on time and content of last meal. Glucose of more than 200 mg/dL in a nonstressed, ambulatory subject supports the diagnosis of Diabetes Mellitus. PERFORMED BY: [facility] [address] [place] [address] PATHOLOGIST HYDRAULIC BOOM OPERATOR GENNY MCMULLEN M.D. Performed By: #### G LULS ####Point of Care testing, Glucose [Mass/Vol] 206 mg/dL Normal [facility] Comment on above: Result Comment: [place] Glucose Reference Range is dependent on time and content of last meal. Glucose of more than 200 mg/dL in a nonstressed, ambulatory subject supports the diagnosis of Diabetes Mellitus. PERFORMED BY: [facility] [address] [place] [address] PATHOLOGIST HYDRAULIC BOOM OPERATOR GENNY MCMULLEN M.D. Performed By: #### G LULS #### Point of Care testing , INR in Platelet poor plasma by Coagulation assayOrdered By: Henrry Issa on 12-30-2022 INR Coag (PPP) [Relative time] 1.1 {INR} Normal [facility] Comment on above: INR Therapeutic Rang e A) Pre- and Peroperative OAT started two weeks before surgery. NOT HIP SURGERY: 1.5 - 2.5 HIP SURGERY: 2 - 3B) Primary and secondary prevention of venous THROMBOSIS: 2 - 3C) Active venous thrombosis, pulmonary embolismand prevention of recurrent venous thrombosis: 2 - 3D) Prevention of arterial thromboembolismincluding patients with mechanical heart valves: 3 - 4.5 Result Comment: INR Therapeutic Range A) Pre- and Peroperative OAT started two weeks before surgery. NOT HIP SURGERY: 1.5 - 2.5 HIP SURGERY: 2 - 3 B) Primary and secondary prevention of venous THROMBOSIS: 2 - 3 C) Active venous thrombosis, pulmonary embolism and prevention of recurrent venous thrombosis: 2 - 3 D) Prevention of arterial thromboembolism including patients with mechanical heart valves: 3 - 4.5 Performed By: #### M G, PTT, PT, CBC, BMP #### [facility] [address] [place] [address] Magnesiumon 12-30-2022 Magnesium [Mass/Vol] 2.2 mg/dL Normal 1.9-2.7 [facility] Comment on above: Result Comment: PERF ORMED BY: [place] [address] PATHOLOGIST HYDRAULIC BOOM OPERATOR GENNY MCMULLEN M.D. Performed By: #### M G, PTT, PT, CBC, BMP #### [facility] [address] [place] [address] Partial Thromboplastin Timeo n 12-30-2022 aPTT Coag (Bld) [Time] 30.2 s Normal 25.1-36.5 [facility] Comment on above: Result Comment: A he matocrit value greater than 55% may lead to inaccurate results in coagulation testing. Patients having hematocrit values >55% require a special collection tube for coagulation studies. Please contact the laboratory at [phone] for redraw instructions. PERFORMED BY: [address] [place] [address] PATHOLOGIST HYDRAULIC BOOM OPERATOR GENNY MCMULLEN M.D. Performed By: #### M G, PTT, PT, CBC, BMP #### [place] [id number] [facility] Prothrombin time (PT)Ordered By: Henrry Issa on 12-30-2022 PT Coag (PPP) [Time] 13.1 s High 9.0-12.9 [facility] Comment on above: A hematocrit value g reater than 55% may lead to inaccurate results in coagulation testing. Patients having hematocrit values >55% require a special collection tube for coagulation studies. Please contact the laboratory at [phone] for redraw instructions. Result Comment: A he matocrit value greater than 55% may lead to inaccurate results in coagulation testing. Patients having hematocrit values >55% require a special collection tube for coagulation studies. Please contact the laboratory at [phone] for redraw instructions. Performed By: #### M G, PTT, PT, CBC, BMP #### [place] [id number] [facility] XR chest 1V portableon 12-30 XR chest 1V portable [facility] [place] [address] XRay Report Signed Patient: Emmanuel Anderson MR#: [id number] 49 : 1940 Acct:[id number] Age/Sex: 82 / M ADM Date: 12/28/22 Loc: Room: [address] [place] [address] Type: ADM IN Attending Dr: Katie Osborne MD Copies to: MD Henrry Cartwright MD Ordering Provider: Henrry Issa MD Date of Service: 12/30/22 XR/XR chest 1V portable: S/P PACEMAKER INSERTION SINGLE VIEW CHEST CLINICAL HISTORY: Status post pacemaker insertion COMPARISON: None FINDINGS: Dual lead pacemaker device in place without radiographic complication. Low lung volumes with likely cardiomegaly. No pneumothorax, consolidation, large pleural effusion or free air. XR/XR chest 1V portable IMPRESSION: DUAL-LEAD PACEMAKER DEVICE IS IN PLACE WITHOUT RADIOGRAPHIC COMPLICATION. Impression dictated by: Salvador Nick Jr., D.O.12/30/2022 3:49 PM Dictation Location: [place] [address] Transcribed By: [facility] 12/30/221548 Dictated By: Salvador Nick Jr, DO 12/30/221547 Signed By: 12/30/221548 [facility] Basic Metabolic Panelon 10-3 Anion gap [Moles/Vol] 11.8 mmol/L Normal 6.0-15.0 [facility] Comment on above: Performed By: #### L IPID, BMP, MG, CBC ####[facility] [id number] [place] [id number] [facility] Calcium [Mass/Vol] 9.4 mg/dL Normal 8.6-10.3 [facility] Comment on above: Performed By: #### L IPID, BMP, MG, CBC ####[place] [address] [place] [id number] [facility] Chloride [Moles/Vol] 107 mmol/L Normal 98-107 [facility] Comment on above: Performed By: #### L IPID, BMP, MG, CBC ####[place] [address] [place] [address] [facility] CO2 [Moles/Vol] 23.9 mmol/L Normal 21.0-31.0 [facility] Comment on above: Performed By: #### L IPID, BMP, MG, CBC ####[address] [address] [facility] Creatinine [Mass/Vol] 1.40 mg/dL High 0.70-1.30 [facility] Comment on above: Performed By: #### L IPID, BMP, MG, CBC ####[facility] [address] [place] [id number] [place] Creatinine Clr Calc Pharmacy 42.38 [facility] Comment on above: Performed By: #### L IPID, BMP, MG, CBC ####[facility] [id number] [place], [place] [address] [place] GFR/1.73 sq M.predicted MDRD (S/P/Bld) [Vol rate/Area] 49.870 mL/min/{1.73_m2} Normal [facility] Comment on above: Performed By: #### L IPID, BMP, MG, CBC ####[facility] [id number] Glucose [Mass/Vol] 185 mg/dL High 70-100 [facility] Comment on above: Result Comment: [facility] Glucose Reference Range is dependent on time and content of last meal. Glucose of more than 200 mg/dL in a nonstressed, ambulatory subject supports the diagnosis of Diabetes Mellitus. ADA recommended reference range Performed By: #### L IPID, BMP, MG, CBC ####[facility] [id number] Potassium [Moles/Vol] 4.7 mmol/L Normal 3.5-5.1 [facility] Comment on above: Performed By: #### L IPID, BMP, MG, CBC ####[place] [address] Sodium [Moles/Vol] 138 mmol/L Normal 136-145 [facility] Comment on above: Performed By: #### L IPID, BMP, MG, CBC ####[facility] [id number] Urea nitrogen [Mass/Vol] 27 mg/dL High 7-25 [facility] Comment on above: Performed By: #### L IPID, BMP, MG, CBC ####[facility] [id number] [place] [id number] [facility] Cholesterol [Mass/volume] in Serum or PlasmaOrdered By: Jarred Cline on 12-29-2022 Cholesterol [Mass/Vol] 96 mg/dL 140-200 [facility] Comment on above: Chol less than 200 m g/dl low riskChol 201-239 mg/dl borderline riskChol 240 mg/dl and greater high risk Cholesterol in LDL Calc [Mas s/Vol]Ordered By: Jarred Cline on 12-29-2022 Cholesterol in LDL [Mass/Vol] 40 mg/dL 0-100 [facility] Comment on above: LDL ATP III CLASSIFI CATIONLDL less than 100 mg/dL OptimalLDL 100-129 mg/dL Near or above optimalLDL 130-159 mg/dL Borderline highLDL 160-189 mg/dL HighLDL greater than 189 mg/dL Very high Cholesterol in VLDL Calc [Ma ss/Vol]Ordered By: Jarred Cline on 12-29-2022 Cholesterol in VLDL [Mass/Vol] 26 mg/dL [facility] Complete Blood Count Auto Di ffon 12-29-2022 Basophils (Bld) [#/Vol] 0.1 10*3/uL Normal 0.0-0.2 [facility] Comment on above: Result Comment: PERF ORMED BY: [facility] [address] [place] [address] PATHOLOGIST HYDRAULIC BOOM OPERATOR GENNY MCMULLEN M.D. Performed By: #### L IPID, BMP, MG, CBC ####[place] [address] Basophils/100 WBC (Bld) 0.8 % Normal . [facility] Comment on above: Performed By: #### L IPID, BMP, MG, CBC ####[place] [address] [place] [address] [facility] Eosinophils (Bld) [#/Vol] 0.1 10*3/uL Normal 0.0-0.45 [facility] Comment on above: Performed By: #### L IPID, BMP, MG, CBC ####[place] [id number] [facility] Eosinophils/100 WBC (Bld) 1.4 % Normal . [facility] Comment on above: Performed By: #### L IPID, BMP, MG, CBC ####[place] [address] [place] [id number] [facility] Erythrocyte distribution width (RBC) [Ratio] 15.0 % High 12.0-14.8 [facility] Comment on above: Performed By: #### L IPID, BMP, MG, CBC ####[facility] [id number] [place] [id number] [facility] Hematocrit (Bld) [Volume fraction] 41.4 % Normal 38.8-50.0 [facility] Comment on above: Performed By: #### L IPID, BMP, MG, CBC ####[address] Hemoglobin (Bld) [Mass/Vol] 13.7 g/dL Normal 13.0-17.0 [facility] Comment on above: Performed By: #### L IPID, BMP, MG, CBC ####[address] Lymphocytes (Bld) [#/Vol] 3.1 10*3/uL Normal 1.00-4.8 [facility] Comment on above: Performed By: #### L IPID, BMP, MG, CBC ####[address] Lymphocytes/100 WBC (Bld) 41.3 % Normal . [facility] Comment on above: Performed By: #### L IPID, BMP, MG, CBC ####[address] MCH (RBC) [Entitic mass] 30.5 pg Normal 27.5-35.2 [facility] Comment on above: Performed By: #### L IPID, BMP, MG, CBC ####[address] MCV (RBC) [Entitic vol] 91.9 fL Normal 83.5-101 [facility] Comment on above: Performed By: #### L IPID, BMP, MG, CBC ####[address] Mean Corpuscular HGB Conc 33.1 g/dL Normal 32.5-35.6 [facility] Comment on above: Performed By: #### L IPID, BMP, MG, CBC ####[address] Monocytes (Bld) [#/Vol] 0.6 10*3/uL Normal 0.0-0.8 [facility] Comment on above: Performed By: #### L IPID, BMP, MG, CBC ####[address] Monocytes/100 WBC (Bld) 8.4 % Normal . [facility] Comment on above: Performed By: #### L IPID, BMP, MG, CBC ####[address] Neutrophils (Bld) [#/Vol] 3.6 10*3/uL Normal 1.8-7.7 [facility] Comment on above: Performed By: #### L IPID, BMP, MG, CBC ####[address] Neutrophils/100 WBC (Bld) 48.1 % Normal . [facility] Comment on above: Performed By: #### L IPID, BMP, MG, CBC ####[address] NRBC% 0.1 /100{WBC} Normal 0-0.5 [facility] Comment on above: Performed By: #### L IPID, BMP, MG, CBC ####[address] Platelet mean volume (Bld) [Entitic vol] 7.2 fL Normal 6.6-10.1 [facility] Comment on above: Performed By: #### L IPID, BMP, MG, CBC ####[address] Platelets (Bld) [#/Vol] 168 10*3/uL Normal 150-450 [facility] Comment on above: Performed By: #### L IPID, BMP, MG, CBC ####[address] RBC (Bld) [#/Vol] 4.50 10*6/uL Normal 3.90-5.60 [facility] Comment on above: Performed By: #### L IPID, BMP, MG, CBC ####[place] [address] [facility] WBC (Bld) [#/Vol] 7.5 10*3/uL Normal 4.1-10.5 [facility] Comment on above: Performed By: #### L IPID, BMP, MG, CBC ####[facility] [id number] [place] [id number] [facility] echo transthoracicon [facility] echo transthoracic [facility] [address] [place] [address] Echocardiogram Signed Patient: Emmanuel Anderson MR#: [id number] 49 : 1940 Acct:[id number] Age/Sex: 82 / M ADM Date: 12/28/22 Loc: Room: [address] [place] [address] Type: ADM IN Attending Dr: Katie Osborne MD Ordering Provider: Haylee Benedict MD Date of Service: 12/29/22 [facility] echo transthoracic: High grade AV block Copies to: Haylee Benedict MD BSA: 2.0 m2 BP: 113/56 mmHg HR: 56 Reason For Study: High grade AV block History: DM. HTN. Interpretation Summary Ejection Fraction = 55-60%. The left ventricular wall motion is normal. The left ventricular size and thickness are normal. There is mild tricuspid regurgitation. There is no comparison study available. Procedure/Quality: A two-dimensional transthoracic echocardiogram with color flow and Doppler was performed. Left Ventricle: Upper septal hypertrophy (sigmoid septum), normal variant. The left ventricular size and thickness are normal. Ejection Fraction = 55- 60%. The left ventricular wall motion is normal. Left Atrium: The left atrium appears normal in size. Right Atrium: The right atrium appears normal in size. Right Ventricle: The right ventricular size, thickness and function are normal. Aortic Valve: The aortic valve is mildly sclerotic. No aortic regurgitation is present. Mitral Valve: The mitral valve is normal in structure and function. There is trace mitral regurgitation. Tricuspid Valve: The tricuspid valve is normal in structure and function. There is mild tricuspid regurgitation. Pulmonic Valve: The pulmonic valve is normal in structure and function. Arteries: The aortic root is normal size. Pericardium/Pleura: No pericardial effusion seen. There is no pleural effusion. IVC/Hepatic Viens: The inferior vena cava is normal in size, with a normal collapsibility index. Measurements with Normals IVSd: 1.6 cm (0.7-1.1 cm)LVIDd: 3.8 cm (3.7-5.4 cm) LVPWd: 1.2 cm (0.7-1.1 cm)LVIDs: 2.7 cm (2.3-3.6 cm) LA dimension: 4.7 cm (2.3-4.0 cm)Ao root diam: 3.9 cm(2.0-3.6 cm) asc Aorta Diam: 3.7 cm(2.1-3.4cm) Doppler with Normals RVSP(TR): 34.0 mmHg (18-35mmHg) MV E max pj: 93.5 cm/sec(0.8-1.3m/s) MV A max pj: 37.2 cm/sec(0.0-0.0m/s) MV E/A: 2.5 (<1.5) MMode/2D Measurements Calculations RVDd: 3.1 cm FS: 28.1 % Ao root area: LVLd ap4: 6.7 cm TAPSE: 1.8 cm EDV(Teich): 60.8 ml 12.0 cm2 EDV(MOD-sp4): RV S Pj: ESV(Teich): 27.2 ml 52.0 ml 13.6 cm/sec EF(Teich): 55.2 % LVLs ap4: 5.8 cm ESV(MOD-sp4): 24.4 ml EF(MOD-sp4): 53.2 % __ SV(MOD-sp4): LAV(MOD-sp4): LA A2 area: 11.3 cm2 27.7 ml 17.7 ml LAV(MOD-sp2): LA A4 area: 10.5 cm2 20.2 ml LA length (vol): 5.1 cm LA vol: 19.8 ml LA vol index: 9.9 ml/m2 Doppler Measurements Calculations MV max P.0 mmHg E/E' lat: MR max pj: TV max P.1 408.7 cm/sec 31.0 mmHg E/E' med: MR max P.1 mmHg 9.7 __ TR max pj: 278.3 cm/sec TR max P.0 mmHg RAP systole: 3.0 mmHg Transcribed By: AGUS Performed At: 12/29/22 1029 Signed By: Haylee Benedict MD 12/29/22 1651 Normal [facility] Glucose Poct Glucometerson 1 Glucose [Mass/Vol] 177 mg/dL Normal [facility] Comment on above: Result Comment: [place] Glucose Reference Range is dependent on time and content of last meal. Glucose of more than 200 mg/dL in a nonstressed, ambulatory subject supports the diagnosis of Diabetes Mellitus. PERFORMED BY: [facility] [address] [place] [id number] PATHOLOGIST HYDRAULIC BOOM OPERATOR GENNY MCMULLEN M.D. Performed By: #### G LULS #### Point of Care testing , Lipid Panelon 12-29-2022 Cholesterol [Mass/Vol] 96 mg/dL Low 140-200 [facility] Comment on above: Result Comment: Chol less than 200 mg/dl low risk Chol 201-239 mg/dl borderline risk Chol 240 mg/dl and greater high risk Performed By: #### L IPID, BMP, MG, CBC ####[facility] [id number] [place] [address] [facility] Cholesterol in HDL [Mass/Vol] 30 mg/dL Normal 23-92 [facility] Comment on above: Result Comment: HDL CHOL ATP-III CLASSIFICATION Cardiovascular Risk HDL > or equal to 60 mg/dL LOW HDL < 40 mg/dL HIGH Performed By: #### L IPID, BMP, MG, CBC ####[facility] [id number] [place] [address] [facility] Cholesterol.total/Chol esterol in HDL [Mass ratio] 3.2 {ratio} Normal <5.0 [facility] Comment on above: Result Comment: PERF ORMED BY: [facility] [address] [address] PATHOLOGIST HYDRAULIC BOOM OPERATOR GENNY MCMULLEN M.D. Performed By: #### L IPID, BMP, MG, CBC ####[address] LDL Cholesterol,Calculated 40 mg/dL Normal 0-100 [facility] Comment on above: Result Comment: LDL ATP III CLASSIFICATION LDL less than 100 mg/dL Optimal LDL 100-129 mg/dL Near or above optimal LDL 130-159 mg/dL Borderline high LDL 160-189 mg/dL High LDL greater than 189 mg/dL Very high Performed By: #### L IPID, BMP, MG, CBC ####[address] Triglyceride w/Reflex 132 mg/dL Normal 0-149 [facility] Comment on above: Result Comment: TRIG ATP III CLASSIFICATION TRIG less than 150 mg/dL Normal TRIG 150-199 mg/dL Borderline high TRIG 200-500 mg/dL High TRIG greater than 500 mg/dL Very high Standard traceable to the Center for Disease Conrtrol and Prevention (CDC) test method. Performed By: #### L IPID, BMP, MG, CBC ####[address] VLDL CHOLESTEROL 26 mg/dL Normal [facility] Comment on above: Performed By: #### L IPID, BMP, MG, CBC ####[place] [address] [place] [id number] [facility] Magnesiumon 12-29-2022 Magnesium [Mass/Vol] 2.3 mg/dL Normal 1.9-2.7 [facility] Comment on above: Performed By: #### L IPID, BMP, MG, CBC ####[address] Serum or plasma high density lipoprotein (HDL) cholesterol measurementOrdered By: Jarred Cline on 12-29-2022 Cholesterol in HDL [Mass/Vol] 30 mg/dL 23-92 [facility] Comment on above: HDL CHOL ATP-III CLA SSIFICATION Cardiovascular RiskHDL > or equal to 60 mg/dL LOWHDL < 40 mg/dL HIGH Serum or plasma total choles terol/high density lipoprotein (HDL) cholesterol mass ratOrdered By: Jarred Cline on 12-29-2022 Cholesterol.total/Chol esterol in HDL [Mass ratio] 3.2 {ratio} <5.0 [facility] Triglyceride [Mass/volume] i n Serum or PlasmaOrdered By: Jarred Cline on 12-29-2022 Triglyceride [Mass/Vol] 132 mg/dL 0-149 [facility] Comment on above: TRIG ATP III CLASSIF ICATIONTRIG less than 150 mg/dL NormalTRIG 150-199 mg/dL Borderline highTRIG 200-500 mg/dL High TRIG greater than 500 mg/dL Very highStandard traceable to the Center for Disease Conrtrol and Prevention (CDC) test method. A1C with Estimated Average G lupebeto 12-28-2022 Glucose [Mass/Vol] 212 mg/dL Normal [facility] Comment on above: Result Comment: PERF ORMED BY: [facility] [address] [place] [address] PATHOLOGIST HYDRAULIC BOOM OPERATOR GENNY MCMULLEN M.D. Performed By: #### BRITTNEY Joyce, A1C WT eA ####[facility] [id number] [place] [id number] [facility] HbA1c (Bld) [Mass fraction] 9.0 % High 4.3-5.6 [facility] Comment on above: Result Comment: Incr eased risk for diabetes: 5.7 - 6.4 diabetes: >6.4 glycemic control for adults with diabetes: <7.0 Performed By: #### Mickey Mcdonough BMP, A1C WT eA ####[facility] [id number] Basic Metabolic Panelon 12-01 Anion gap [Moles/Vol] 12.3 mmol/L Normal 6.0-15.0 [facility] Comment on above: Order Comment: Comme nt add Performed By: #### M Sharonda BRITTNEY, A1C WT eA ####[address] [place] [address] [facility] Calcium [Mass/Vol] 9.0 mg/dL Normal 8.6-10.3 [facility] Comment on above: Order Comment: Comme nt add Performed By: #### BRITTNEY Joyce, A1C WT eA ####[address] [address] [place] Chloride [Moles/Vol] 107 mmol/L Normal 98-107 [facility] Comment on above: Order Comment: Comme nt add Performed By: #### Mickey Mcdonough, BRITTNEY, A1C WT eA ####[address] [address] [facility] CO2 [Moles/Vol] 23.3 mmol/L Normal 21.0-31.0 [facility] Comment on above: Order Comment: Comme nt add Performed By: #### BRITTNEY Joyce, A1C WT eA ####[address] [address] [facility] Creatinine [Mass/Vol] 1.40 mg/dL High 0.70-1.30 [facility] Comment on above: Order Comment: Comme nt add Performed By: #### BRITTNEY Joyce, [facility] WT eA ####[address] [address] [place] Creatinine Clr Calc Pharmacy 43.10 [facility] Comment on above: Order Comment: Comme nt add Performed By: #### BRITTNEY Joyce, A1C WT eA ####[address] [address] [place] GFR/1.73 sq M.predicted MDRD (S/P/Bld) [Vol rate/Area] 49.870 mL/min/{1.73_m2} [facility] Comment on above: Order Comment: Comme nt add Performed By: #### BRITTNEY Joyce, A1C WT eA ####[address] [address] [facility] Glucose [Mass/Vol] 183 mg/dL High 70-100 [facility] Comment on above: Order Comment: Comme nt add Result Comment: [place] om Glucose Reference Range is dependent on time and content of last meal. Glucose of more than 200 mg/dL in a nonstressed, ambulatory subject supports the diagnosis of Diabetes Mellitus. ADA recommended reference range Performed By: #### M G, BMP, A1C WTH eA ####[place] [address] Potassium [Moles/Vol] 4.6 mmol/L Normal 3.5-5.1 [facility] Comment on above: Order Comment: Comme nt add Performed By: #### M Sharonda, BMP, A1C WT eA ####[place] [address] [place] [id number] [facility] Sodium [Moles/Vol] 138 mmol/L Normal 136-145 [facility] Comment on above: Order Comment: Comme nt add Performed By: #### M G, BMP, A1C WT eA ####[place] [id number] [facility] Urea nitrogen [Mass/Vol] 26 mg/dL High 7-25 [facility] Comment on above: Order Comment: Comme nt add Performed By: #### M G, BMP, [address] eA ####[place] [id number] [facility] ECG 12 lead ECGon 12-28-2022 ECG 12 lead ECG [facility] [address] [place] [address] Electrocardiograph Report Signed Patient: Emmanuel Anderson MR#: [id number] 49 : 1940 Acct:[id number] Age/Sex: 82 / M ADM Date: 12/28/22 Loc: Room: [address] [place] [address] Type: ADM IN Attending Dr: Jarred Cline DO Ordering Provider: Jarred Cline DO Date of Service: 12/28/22 ECG/ECG 12 lead EC? AV block Copies to: Test Reason : Blood Pressure : / mmHG Vent. Rate : 041 BPM Atrial Rate : 078 BPM P-R Int : 336 ms QRS Dur : 122 ms QT Int : 438 ms P-R-T Axes : 038 -67 017 degrees QTc Int : 361 ms second degree AV block -Type 1 Left anterior fascicular block Incomplete right bundle branch block Possible Anteroseptal infarct , age undetermined Abnormal ECG No previous ECGs available Confirmed by SUZANNE CORDERO DO ([id number]) on 12/28/2022 9:29:54 PM Referred By: Electronically Signed By:SUZANNE CORDERO DO Transcribed By: MUS Signed By Suzanne Cordero DO 12/28 Normal [facility] Glucose mean value [Mass/vol ume] in Blood Estimated from glycated hemoglobinOrdered By: Jarred Cline on 12-28-2022 Average glucose Estimated from glycated hemoglobin (Bld) [Mass/Vol] 212 mg/dL [facility] Hemoglobin A1c percentageOrd ered By: Jarred Cline on 12-28-2022 HbA1c (Bld) [Mass fraction] 9.0 % 4.3-5.6 [facility] Comment on above: Increased risk for d iabetes: 5.7 - 6.4diabetes: >6.4glycemic control for adults with diabetes: <7.0 Magnesiumon 12-28-2022 Magnesium [Mass/Vol] 2.2 mg/dL Normal 1.9-2.7 [facility] Comment on above: Order Comment: Comme nt add Result Comment: PERF ORMED BY: [facility] [address] [place] [address] PATHOLOGIST HYDRAULIC BOOM OPERATOR GENNY MCMULLEN M.D. Performed By: #### M G, BMP, A1C [facility] eA ####[facility] [id number] [place] [address] [facility] BNPon 05-19-2022 Natriuretic peptide B (Bld) [Mass/Vol] 74.0 pg/mL Normal <=1,800.0 [facility] Comment on above: Performed By: #### E LEC, BUN, BNP, LIVER, CREA #### [facility] [address] [address] [address] Brissa Ma BUNon 05-19-2022 Urea nitrogen [Mass/Vol] 41.0 mg/dL Critically high 7.0-18.0 [facility] Comment on above: Performed By: #### E LEC, BUN, BNP, LIVER, CREA #### [facility] [address] [place] [address] Dr. Brissa Ma CBC AUTO DIFFon 05-19-2022 BASO # 0.1 103/ul Normal 0.0-0.1 [facility] Comment on above: Performed By: #### E LEC, BUN, BNP, LIVER, CREA #### [facility] [address] [place] [address] Dr. Brissa Ma Basophils/100 WBC (Bld) 0.8 % Normal 0.2-2.0 [facility] Comment on above: Performed By: #### E LEC, BUN, BNP, LIVER, CREA #### [facility] [address] [place] [address] Dr. Brissa Ma EO # 0.1 103/ul Normal 0.0-0.7 [facility] Comment on above: Performed By: #### E LEC, BUN, BNP, LIVER, CREA #### [facility] [address] [place] [address] Dr. Brissa Ma Eosinophils/100 WBC (Bld) 1.1 % Normal 0.9-7.0 [facility] Comment on above: Performed By: #### E LEC, BUN, BNP, LIVER, CREA #### [facility] [address] [place] [address] Dr. Brissa Ma Erythrocyte distribution width (RBC) [Ratio] 14.1 % Normal 11.0-15.0 [facility] Comment on above: Performed By: #### E LEC, BUN, BNP, LIVER, CREA #### [facility] [address] [place] [address] Dr. Brissa Ma Hematocrit (Bld) [Volume fraction] 47.8 % Normal 42.0-54.0 [facility] Comment on above: Performed By: #### E LEC, BUN, BNP, LIVER, CREA #### [facility] [address] [place] [address] Dr. Brissa Ma Hemoglobin (Bld) [Mass/Vol] 15.3 g/dL Normal 14.0-18.0 [facility] Comment on above: Performed By: #### E LEC, BUN, BNP, LIVER, CREA #### [facility] [address] [place] [address] Dr. Brissa Ma IG # 0.17 10e3/ul Critically high 0.00-0.03 [facility] Comment on above: Performed By: #### E LEC, BUN, BNP, LIVER, CREA #### [facility] [address] [place] [address] Dr. Brissa Ma IG % 1.7 % Critically high 0.0-0.5 [facility] Comment on above: Performed By: #### E LEC, BUN, BNP, LIVER, CREA #### [facility] [address] [place] [address] Dr. Brissa Ma LYMPH # 3.8 103/ul Normal 1.2-3.8 [facility] Comment on above: Performed By: #### E LEC, BUN, BNP, LIVER, CREA #### [facility] [address] [place] [address] Dr. Brissa Ma Lymphocytes/100 WBC (Bld) 38.4 % Normal 20.5-60.0 [facility] Comment on above: Performed By: #### E LEC, BUN, BNP, LIVER, CREA #### [facility] [address] [place] [address] Dr. Brissa Ma MANUAL DIFF REQ NO Normal [facility] Comment on above: Performed By: #### E LEC, BUN, BNP, LIVER, CREA #### [facility] [address] [place] [address] Dr. Brissa Ma MCH (RBC) [Entitic mass] 30.2 pg Normal 25.9-34.0 [facility] Comment on above: Performed By: #### E LEC, BUN, BNP, LIVER, CREA #### [facility] [address] [place] [address] Dr. Brissa Ma MCHC (RBC) [Mass/Vol] 32.0 g/dL Normal 29.9-35.2 [facility] Comment on above: Performed By: #### E LEC, BUN, BNP, LIVER, CREA #### [facility] [address] [place] [address] Dr. Brissa Ma MCV (RBC) [Entitic vol] 94.3 fL Critically high 80.0-94.0 [facility] Comment on above: Performed By: #### E LEC, BUN, BNP, LIVER, CREA #### [facility] [address] [place] [address] Dr. Brissa Ma MONO # 0.7 103/ul Normal 0.3-0.8 [facility] Comment on above: Performed By: #### E LEC, BUN, BNP, LIVER, CREA #### [facility] [address] [place] [address] Dr. Brissa Ma Monocytes/100 WBC (Bld) 7.4 % Normal 1.7-12.0 [facility] Comment on above: Performed By: #### E LEC, BUN, BNP, LIVER, CREA #### [facility] [address] [place] [address] Dr. Brissa Ma NEUT # 5.0 103/ul Normal 1.4-6.5 [facility] Comment on above: Performed By: #### E LEC, BUN, BNP, LIVER, CREA #### [facility] [address] [place] [address] Dr. Brissa Ma Neutrophils/100 WBC (Bld) 50.6 % Normal 43.0-75.0 [facility] Comment on above: Performed By: #### E LEC, BUN, BNP, LIVER, CREA #### [facility] [address] [place] [address] Dr. Brissa Ma Platelet mean volume (Bld) [Entitic vol] 9.0 fL Critically low 9.5-13.5 [facility] Comment on above: Performed By: #### E LEC, BUN, BNP, LIVER, CREA #### [facility] [address] [place] [address] Dr. Brissa Ma PLT 205 103/ul Normal 150-450 [facility] Comment on above: Performed By: #### E LEC, BUN, BNP, LIVER, CREA #### [facility] [address] [place] [address] Dr. Brissa Ma RBC 5.07 106/ul Normal 4.70-6.10 [facility] Comment on above: Performed By: #### E LEC, BUN, BNP, LIVER, CREA #### [facility] [address] [place] [address] Dr. Brissa Ma WBC 9.9 103/ul Normal 4.0-11.0 [facility] Comment on above: Performed By: #### E LEC, BUN, BNP, LIVER, CREA #### [facility] [address] [place] [address] Dr. Brissa Ma CREATININEon 05-19-2022 Creatinine [Mass/Vol] 1.60 mg/dL Critically high 0.70-1.30 [facility] Comment on above: Performed By: #### E LEC, BUN, BNP, LIVER, CREA #### [facility] [address] [place] [address] Dr. Brissa Ma EGFR-AF MALTESE 50 mL/min/1.73m2 Critically low >=60 [facility] Comment on above: Performed By: #### E LEC, BUN, BNP, LIVER, CREA #### [facility] [address] [place] [address] Dr. Brissa Ma EGFR-NON AF MALTESE 42 mL/min/1.73m2 Critically low >=60 [facility] Comment on above: Performed By: #### E LEC, BUN, BNP, LIVER, CREA #### [facility] [address] [place] [address] Dr. Brissa Ma ELECTROLYTESon 05-19-2022 Anion gap [Moles/Vol] 15.5 mmol/L Normal [facility] Comment on above: Performed By: #### E LEC, BUN, BNP, LIVER, CREA #### [facility] [address] [place] [address] Dr. Brissa Ma Chloride [Moles/Vol] 102 mmol/L Normal 98-107 [facility] Comment on above: Performed By: #### E LEC, BUN, BNP, LIVER, CREA #### [facility] [address] [place] [address] Dr. Brissa Ma CO2 [Moles/Vol] 25.5 mmol/L Normal 21.0-32.0 [facility] Comment on above: Performed By: #### E LEC, BUN, BNP, LIVER, CREA #### [facility] [address] [place] [address] Dr. Brissa Ma Potassium [Moles/Vol] 5.0 mmol/L Normal 3.5-5.1 [facility] Comment on above: Performed By: #### E LEC, BUN, BNP, LIVER, CREA #### [facility] [address] [place] [address] Dr. Brissa Ma Sodium [Moles/Vol] 138 mmol/L Normal 136-145 [facility] Comment on above: Performed By: #### E LEC, BUN, BNP, LIVER, CREA #### [facility] [address] [place] [address] Dr. Brissa Ma GLYCOHEMOGLOBIN A1Con 2022 ADA RECOMMENDATION SEE BELOW Normal [facility] Comment on above: Result Comment: ADA RECOMMENDED LIMIT 4.0 - 6.0 ADA THERAPEUTIC TARGET < 7.0 ACTION SUGGESTED > 7.0 Performed By: #### A 1C #### [facility] [address] [place] [address] Dr. Brissa Ma Glucose [Mass/Vol] 203 mg/dL Normal [facility] Comment on above: Performed By: #### A 1C #### [facility] [address] [place] [address] Dr. Brissa Ma HbA1c (Bld) [Mass fraction] 8.7 % Critically high 4.5-6.2 [facility] Comment on above: Performed By: #### A 1C #### [facility] [address] [place] [address] Dr. Brissa Ma LIVER PROFILEon 05-19-2022 Albumin [Mass/Vol] 3.7 g/dL Normal 3.4-5.0 [facility] Comment on above: Performed By: #### E LEC, BUN, BNP, LIVER, CREA #### [facility] [address] [place] [address] Dr. Brissa Ma Albumin/Globulin [Mass ratio] 1.0 {ratio} Normal [facility] Comment on above: Performed By: #### E LEC, BUN, BNP, LIVER, CREA #### [facility] [address] [place] [address] Dr. Brissa Ma ALP [Catalytic activity/Vol] 80 U/L Normal 46-116 [facility] Comment on above: Performed By: #### E LEC, BUN, BNP, LIVER, CREA #### [facility] [address] [place] [address] Dr. Brissa Ma ALT [Catalytic activity/Vol] 16 U/L Normal 16-63 [facility] Comment on above: Performed By: #### E LEC, BUN, BNP, LIVER, CREA #### [facility] [address] [place] [address] Dr. Brissa Ma AST [Catalytic activity/Vol] 18 U/L Normal 15-37 [facility] Comment on above: Performed By: #### E LEC, BUN, BNP, LIVER, CREA #### [facility] [address] [place] [address] Dr. Brissa Ma BILI, CONJUGATED 0.1 mg/dL Normal 0.0-0.2 [facility] Comment on above: Performed By: #### E LEC, BUN, BNP, LIVER, CREA #### [facility] [address] [place] [address] Dr. Brissa Ma Bilirubin [Mass/Vol] 0.7 mg/dL Normal 0.2-1.0 [facility] Comment on above: Performed By: #### E LEC, BUN, BNP, LIVER, CREA #### [facility] [address] [place] [address] Dr. Brissa Ma Globulin (S) [Mass/Vol] 3.8 g/dL Normal [facility] Comment on above: Performed By: #### E LEC, BUN, BNP, LIVER, CREA #### [facility] [address] [place] [address] Dr. Brissa Ma Protein [Mass/Vol] 7.5 g/dL Normal 6.4-8.2 [facility] Comment on above: Performed By: #### E LEC, BUN, BNP, LIVER, CREA #### [facility] [address] [place] [address] Dr. Brissa Ma BNPon 01-22-2022 Natriuretic peptide B (Bld) [Mass/Vol] 150.0 pg/mL Normal <=1,800.0 [facility] Comment on above: Performed By: #### E LEC, BUN, BNP, LIVER, CREA #### [facility] [address] [place] [address] Dr. Brissa Ma BUNon 01-22-2022 Urea nitrogen [Mass/Vol] 22.0 mg/dL Critically high 7.0-18.0 [facility] Comment on above: Performed By: #### E LEC, BUN, BNP, LIVER, CREA #### [facility] [address] [place] [address] Dr. Brissa Ma CBC AUTO DIFFon 01-22-2022 BASO # 0.0 103/ul Normal 0.0-0.1 [facility] Comment on above: Performed By: #### E LEC, BUN, BNP, LIVER, CREA #### [facility] [address] [place] [address] Dr. Brissa Ma Basophils/100 WBC (Bld) 0.5 % Normal 0.2-2.0 [facility] Comment on above: Performed By: #### E LEC, BUN, BNP, LIVER, CREA #### [facility] [address] [place] [address] Dr. Brissa Ma EO # 0.1 103/ul Normal 0.0-0.7 [facility] Comment on above: Performed By: #### E LEC, BUN, BNP, LIVER, CREA #### [facility] [address] [place] [address] Dr. Brissa Ma Eosinophils/100 WBC (Bld) 1.9 % Normal 0.9-7.0 [facility] Comment on above: Performed By: #### E LEC, BUN, BNP, LIVER, CREA #### [facility] [address] [place] [address] Dr. Brissa Ma Erythrocyte distribution width (RBC) [Ratio] 14.1 % Normal 11.0-15.0 [facility] Comment on above: Performed By: #### E LEC, BUN, BNP, LIVER, CREA #### [facility] [address] [place] [address] Dr. Brissa Ma Hematocrit (Bld) [Volume fraction] 43.1 % Normal 42.0-54.0 [facility] Comment on above: Performed By: #### E LEC, BUN, BNP, LIVER, CREA #### [facility] [address] [place] [address] Dr. Brissa Ma Hemoglobin (Bld) [Mass/Vol] 13.7 g/dL Critically low 14.0-18.0 [facility] Comment on above: Performed By: #### E LEC, BUN, BNP, LIVER, CREA #### [facility] [address] [place] [address] Dr. Brissa Ma IG # 0.05 10e3/ul Critically high 0.00-0.03 [facility] Comment on above: Performed By: #### E LEC, BUN, BNP, LIVER, CREA #### [facility] [address] [place] [address] Dr. Brissa Ma IG % 0.8 % Critically high 0.0-0.5 [facility] Comment on above: Performed By: #### E LEC, BUN, BNP, LIVER, CREA #### [facility] [address] [place] [address] Dr. Brissa Ma LYMPH # 2.7 103/ul Normal 1.2-3.8 [facility] Comment on above: Performed By: #### E LEC, BUN, BNP, LIVER, CREA #### [facility] [address] [place] [address] Dr. Brissa Ma Lymphocytes/100 WBC (Bld) 42.1 % Normal 20.5-60.0 [facility] Comment on above: Performed By: #### E LEC, BUN, BNP, LIVER, CREA #### [facility] [address] [place] [address] Dr. Brissa Ma MANUAL DIFF REQ NO Normal [facility] Comment on above: Performed By: #### E LEC, BUN, BNP, LIVER, CREA #### [facility] [address] [place] [address] Dr. Brissa Ma MCH (RBC) [Entitic mass] 29.8 pg Normal 25.9-34.0 [facility] Comment on above: Performed By: #### E LEC, BUN, BNP, LIVER, CREA #### [facility] [address] [place] [address] Dr. Brissa Ma MCHC (RBC) [Mass/Vol] 31.8 g/dL Normal 29.9-35.2 [facility] Comment on above: Performed By: #### E LEC, BUN, BNP, LIVER, CREA #### [facility] [address] [place] [address] Dr. Brissa Ma MCV (RBC) [Entitic vol] 93.9 fL Normal 80.0-94.0 [facility] Comment on above: Performed By: #### E LEC, BUN, BNP, LIVER, CREA #### [facility] [address] [place] [address] Dr. Brissa Ma MONO # 0.5 103/ul Normal 0.3-0.8 [facility] Comment on above: Performed By: #### E LEC, BUN, BNP, LIVER, CREA #### [facility] [address] [place] [address] Dr. Brissa Ma Monocytes/100 WBC (Bld) 7.8 % Normal 1.7-12.0 [facility] Comment on above: Performed By: #### E LEC, BUN, BNP, LIVER, CREA #### [facility] [address] [place] [address] Dr. Brissa Ma NEUT # 3.0 103/ul Normal 1.4-6.5 [facility] Comment on above: Performed By: #### E LEC, BUN, BNP, LIVER, CREA #### [facility] [address] [place] [address] Dr. Brissa Ma Neutrophils/100 WBC (Bld) 46.9 % Normal 43.0-75.0 [facility] Comment on above: Performed By: #### E LEC, BUN, BNP, LIVER, CREA #### [facility] [address] [place] [address] Dr. Brissa Ma Platelet mean volume (Bld) [Entitic vol] 9.2 fL Critically low 9.5-13.5 [facility] Comment on above: Performed By: #### E LEC, BUN, BNP, LIVER, CREA #### [facility] [address] [place] [address] Dr. Brissa Ma PLT 163 103/ul Normal 150-450 [facility] Comment on above: Performed By: #### E LEC, BUN, BNP, LIVER, CREA #### [facility] [address] [place] [address] Dr. Brissa Ma RBC 4.59 106/ul Critically low 4.70-6.10 [facility] Comment on above: Performed By: #### E LEC, BUN, BNP, LIVER, CREA #### [facility] [address] [place] [address] Dr. Brissa Ma WBC 6.4 103/ul Normal 4.0-11.0 [facility] Comment on above: Performed By: #### E LEC, BUN, BNP, LIVER, CREA #### [facility] [address] [place] [address] Dr. Brissa Ma CREATININEon 01-22-2022 Creatinine [Mass/Vol] 1.47 mg/dL Critically high 0.70-1.30 [facility] Comment on above: Performed By: #### E LEC, BUN, BNP, LIVER, CREA #### [facility] [address] [place] [address] Dr. Brissa Ma EGFR-AF MALTESE 56 mL/min/1.73m2 Critically low >=60 [facility] Comment on above: Performed By: #### E LEC, BUN, BNP, LIVER, CREA #### [facility] [address] [address] [address] Brissa Ma EGFR-NON AF MALTESE 46 mL/min/1.73m2 Critically low >=60 [facility] Comment on above: Performed By: #### E LEC, BUN, BNP, LIVER, CREA #### [facility] [address] [address] [address] Brissa Ma ELECTROLYTESon 01-22-2022 Anion gap [Moles/Vol] 10.1 mmol/L Normal [facility] Comment on above: Performed By: #### E LEC, BUN, BNP, LIVER, CREA #### [facility] [address] [place] [address] Dr. Brissa Ma Chloride [Moles/Vol] 106 mmol/L Normal 98-107 [facility] Comment on above: Performed By: #### E LEC, BUN, BNP, LIVER, CREA #### [facility] [address] [place] [address] Dr. Brissa Ma CO2 [Moles/Vol] 28.4 mmol/L Normal 21.0-32.0 [facility] Comment on above: Performed By: #### E LEC, BUN, BNP, LIVER, CREA #### [facility] [address] [place] [address] Dr. Brissa Ma Potassium [Moles/Vol] 4.5 mmol/L Normal 3.5-5.1 [facility] Comment on above: Performed By: #### E LEC, BUN, BNP, LIVER, CREA #### [facility] [address] [place] [address] Dr. Brissa Ma Sodium [Moles/Vol] 140 mmol/L Normal 136-145 [facility] Comment on above: Performed By: #### E LEC, BUN, BNP, LIVER, CREA #### [facility] [address] [place] [address] Dr. Brissa Ma GLYCOHEMOGLOBIN A1Con 2021 ADA RECOMMENDATION SEE BELOW Normal [facility] Comment on above: Result Comment: ADA RECOMMENDED LIMIT 4.0 - 6.0 ADA THERAPEUTIC TARGET < 7.0 ACTION SUGGESTED > 7.0 Performed By: #### A 1C #### [facility] [address] [place] [address] Dr. Brissa Ma Glucose [Mass/Vol] 223 mg/dL Normal [facility] Comment on above: Performed By: #### A 1C #### [facility] [address] [place] [address] Dr. Brissa Ma HbA1c (Bld) [Mass fraction] 9.4 % Critically high 4.5-6.2 [facility] Comment on above: Performed By: #### A 1C #### [facility] [address] [place] [address] Dr. Brissa Ma LIVER PROFILEon 01-22-2022 Albumin [Mass/Vol] 3.6 g/dL Normal 3.4-5.0 [facility] Comment on above: Performed By: #### E LEC, BUN, BNP, LIVER, CREA #### [facility] [address] [place] [address] Dr. Brissa Ma Albumin/Globulin [Mass ratio] 1.0 {ratio} Normal [facility] Comment on above: Performed By: #### E LEC, BUN, BNP, LIVER, CREA #### [facility] [address] [place] [address] Dr. Brissa Ma ALP [Catalytic activity/Vol] 86 U/L Normal 46-116 [facility] Comment on above: Performed By: #### E LEC, BUN, BNP, LIVER, CREA #### [facility] [address] [place] [address] Dr. Brissa Ma ALT [Catalytic activity/Vol] 18 U/L Normal 16-63 [facility] Comment on above: Performed By: #### E LEC, BUN, BNP, LIVER, CREA #### [facility] [address] [place] [address] Dr. Brissa Ma AST [Catalytic activity/Vol] 20 U/L Normal 15-37 [facility] Comment on above: Performed By: #### E LEC, BUN, BNP, LIVER, CREA #### [facility] [address] [place] [address] Dr. Brissa Ma BILI, CONJUGATED 0.1 mg/dL Normal 0.0-0.2 [facility] Comment on above: Performed By: #### E LEC, BUN, BNP, LIVER, CREA #### [facility] [address] [place] [address] Dr. Brissa Ma Bilirubin [Mass/Vol] 0.4 mg/dL Normal 0.2-1.0 [facility] Comment on above: Performed By: #### E LEC, BUN, BNP, LIVER, CREA #### [facility] [address] [place] [address] Dr. Brissa Ma Globulin (S) [Mass/Vol] 3.7 g/dL Normal [facility] Comment on above: Performed By: #### E LEC, BUN, BNP, LIVER, CREA #### [facility] [address] [place] [address] Dr. Brissa Ma Protein [Mass/Vol] 7.3 g/dL Normal 6.4-8.2 [facility] Comment on above: Performed By: #### E LEC, BUN, BNP, LIVER, CREA #### [facility] [address] [place] [address] Dr. Brissa Ma BUNon 10-08-2021 Urea nitrogen [Mass/Vol] 25.0 mg/dL Critically high 7.0-18.0 [facility] Comment on above: Performed By: #### E LEC, BUN, BNP, LIVER, CREA #### [facility] [address] [place] [address] Dr. Brissa Ma CBC AUTO DIFFon 10-08-2021 BASO # 0.1 103/ul Normal 0.0-0.1 [facility] Comment on above: Performed By: #### C BC #### [facility] [address] [place] [address] Dr. Brissa Ma Basophils/100 WBC (Bld) 0.7 % Normal 0.2-2.0 [facility] Comment on above: Performed By: #### C BC #### [facility] [address] [place] [address] Dr. Brissa Ma EO # 0.1 103/ul Normal 0.0-0.7 [facility] Comment on above: Performed By: #### C BC #### [facility] [address] [place] [address] Dr. Brissa Ma Eosinophils/100 WBC (Bld) 1.8 % Normal 0.9-7.0 [facility] Comment on above: Performed By: #### C BC #### [facility] [address] [place] [address] Dr. Brissa Ma Erythrocyte distribution width (RBC) [Ratio] 14.1 % Normal 11.0-15.0 [facility] Comment on above: Performed By: #### C BC #### [facility] [address] [place] [address] Dr. Brissa Ma Hematocrit (Bld) [Volume fraction] 41.9 % Critically low 42.0-54.0 [facility] Comment on above: Performed By: #### C BC #### [facility] [address] [place] [address] Dr. Brissa Ma Hemoglobin (Bld) [Mass/Vol] 13.3 g/dL Critically low 14.0-18.0 [facility] Comment on above: Performed By: #### C BC #### [facility] [address] [place] [address] Dr. Brissa Ma IG # 0.06 10e3/ul Critically high 0.00-0.03 [facility] Comment on above: Performed By: #### C BC #### [facility] [address] [place] [address] Dr. Brissa Ma IG % 0.9 % Critically high 0.0-0.5 [facility] Comment on above: Performed By: #### C BC #### [facility] [address] [place] [address] Dr. Brissa Ma LYMPH # 2.6 103/ul Normal 1.2-3.8 [facility] Comment on above: Performed By: #### C BC #### [facility] [address] [place] [address] Dr. Brissa Ma Lymphocytes/100 WBC (Bld) 37.8 % Normal 20.5-60.0 [facility] Comment on above: Performed By: #### C BC #### [facility] [address] [place] [address] Dr. Brissa Ma MANUAL DIFF REQ NO Normal [facility] Comment on above: Performed By: #### C BC #### [facility] [address] [place] [address] Dr. Brissa Ma MCH (RBC) [Entitic mass] 30.4 pg Normal 25.9-34.0 [facility] Comment on above: Performed By: #### C BC #### [facility] [address] [place] [address] Dr. Brissa Ma MCHC (RBC) [Mass/Vol] 31.7 g/dL Normal 29.9-35.2 [facility] Comment on above: Performed By: #### C BC #### [facility] [address] [place] [address] Dr. Brissa Ma MCV (RBC) [Entitic vol] 95.7 fL Critically high 80.0-94.0 [facility] Comment on above: Performed By: #### C BC #### [facility] [address] [place] [address] Dr. Brissa Ma MONO # 0.6 103/ul Normal 0.3-0.8 [facility] Comment on above: Performed By: #### C BC #### [facility] [address] [place] [address] Dr. Brissa Ma Monocytes/100 WBC (Bld) 8.4 % Normal 1.7-12.0 [facility] Comment on above: Performed By: #### C BC #### [facility] [address] [place] [address] Dr. Brissa Ma NEUT # 3.4 103/ul Normal 1.4-6.5 [facility] Comment on above: Performed By: #### C BC #### [facility] [address] [place] [address] Dr. Brissa Ma Neutrophils/100 WBC (Bld) 50.4 % Normal 43.0-75.0 [facility] Comment on above: Performed By: #### C BC #### [facility] [address] [address] [address] Brissa Ma Platelet mean volume (Bld) [Entitic vol] 9.2 fL Critically low 9.5-13.5 [facility] Comment on above: Performed By: #### C BC #### [facility] [address] [address] [address] Brissa Ma PLT 151 103/ul Normal 150-450 [facility] Comment on above: Performed By: #### C BC #### [facility] [address] [address] [address] Brissa Ma RBC 4.38 106/ul Critically low 4.70-6.10 [facility] Comment on above: Performed By: #### C BC #### [facility] [address] [address] [address] Brissa Ma WBC 6.8 103/ul Normal 4.0-11.0 [facility] Comment on above: Performed By: #### C BC #### [facility] [address] [place] [address] Dr. Brissa Ma CREATININEon 10-08-2021 Creatinine [Mass/Vol] 1.30 mg/dL Normal 0.70-1.30 [facility] Comment on above: Performed By: #### E LEC, BUN, BNP, LIVER, CREA #### [facility] [address] [place] [address] Dr. Brissa Ma EGFR-AF MALTESE >60 Normal >=60 [facility] Comment on above: Performed By: #### E LEC, BUN, BNP, LIVER, CREA #### [facility] [address] [place] [address] Dr. Brissa Ma EGFR-NON AF MALTESE 53 mL/min/1.73m2 Critically low >=60 [facility] Comment on above: Performed By: #### E LEC, BUN, BNP, LIVER, CREA #### [facility] [address] [place] [address] Dr. Brissa Ma ELECTROLYTESon 10-08-2021 Anion gap [Moles/Vol] 12.3 mmol/L Normal [facility] Comment on above: Performed By: #### E LEC, BUN, BNP, LIVER, CREA #### [facility] [address] [place] [address] Dr. Brissa Ma Chloride [Moles/Vol] 106 mmol/L Normal 98-107 [facility] Comment on above: Performed By: #### E LEC, BUN, BNP, LIVER, CREA #### [facility] [address] [place] [address] Dr. Brissa Ma CO2 [Moles/Vol] 24.3 mmol/L Normal 21.0-32.0 [facility] Comment on above: Performed By: #### E LEC, BUN, BNP, LIVER, CREA #### [facility] [address] [place] [address] Dr. Brissa Ma Potassium [Moles/Vol] 4.6 mmol/L Normal 3.5-5.1 [facility] Comment on above: Performed By: #### E LEC, BUN, BNP, LIVER, CREA #### [facility] [address] [place] [address] Dr. Brissa Ma Sodium [Moles/Vol] 138 mmol/L Normal 136-145 [facility] Comment on above: Performed By: #### E LEC, BUN, BNP, LIVER, CREA #### [facility] [address] [place] [address] Dr. Brissa Ma GLYCOHEMOGLOBIN A1Con 2021 ADA RECOMMENDATION SEE BELOW Normal [facility] Comment on above: Result Comment: ADA RECOMMENDED LIMIT 4.0 - 6.0 ADA THERAPEUTIC TARGET < 7.0 ACTION SUGGESTED > 7.0 Performed By: #### A 1C #### [facility] [address] [place] [address] Dr. Brissa Ma Glucose [Mass/Vol] 189 mg/dL Normal [facility] Comment on above: Performed By: #### A 1C #### [facility] [address] [address] [address] Brissa Ma HbA1c (Bld) [Mass fraction] 8.2 % Critically high 4.5-6.2 [facility] Comment on above: Performed By: #### A 1C #### [facility] [address] [place] [address] Dr. Brissa Ma LIPID PROFILEon 10-08-2021 CHOL-HDL RATIO NORM SEE BELOW Normal [facility] Comment on above: Result Comment: 3.3 - 4.4 LOW RISK 4.4 - 7.1 AVERAGE RISK 7.1 - 11.0 MODERATE RISK >11.0 HIGH RISK Performed By: #### C LEELEE, ELEC, LIPID, LIVER, BUN #### [facility] [address] [address] [address] Brissa Ma Cholesterol [Mass/Vol] 75 mg/dL Normal <=200 [facility] Comment on above: Performed By: #### C LEELEE, ELEC, LIPID, LIVER, BUN #### [facility] [address] [place] [address] Dr. Brissa Ma Cholesterol in HDL [Mass/Vol] 33 mg/dL Critically low 40-60 [facility] Comment on above: Performed By: #### C LEELEE, ELEC, LIPID, LIVER, BUN #### [facility] [address] [place] [address] Dr. Brissa Ma Cholesterol in LDL [Mass/Vol] 22.0 mg/dL Normal [facility] Comment on above: Performed By: #### C LEELEE, ELEC, LIPID, LIVER, BUN #### [facility] [address] [place] [address] Dr. Brissa Ma Cholesterol.total/Chol esterol in HDL [Mass ratio] 2.3 {ratio} Normal [facility] Comment on above: Performed By: #### C LEELEE, ELEC, LIPID, LIVER, BUN #### [facility] [address] [place] [address] Dr. Brissa Ma HDL NORMAL > or = 60 mg/dl - LO W CARDIOVASCULAR RISK <40 mg/dl - HIGH CARDIOVASCULAR RISK Normal [facility] Comment on above: Performed By: #### C LEELEE, ELEC, LIPID, LIVER, BUN #### [facility] [address] [address] [address] Brissa Ma LDL CALC NORMAL SEE BELOW Normal [facility] Comment on above: Result Comment: <100 mg/dl OPTIMAL 100 - 129 mg/dl NEAR OR ABOVE OPTIMAL 130 - 159 mg/dl BORDERLINE HIGH 160 - 189 mg/dl HIGH >190 mg/dl VERY HIGH Performed By: #### C LEELEE, ELEC, LIPID, LIVER, BUN #### [facility] [address] [address] [address] Brissa Ma Triglyceride [Mass/Vol] 100 mg/dL Normal <=150 [facility] Comment on above: Performed By: #### C LEELEE, ELEC, LIPID, LIVER, BUN #### [facility] [address] [place] [address] Dr. Brissa Ma VLDL CALC 20.0 mg/dL Normal [facility] Comment on above: Performed By: #### C LEELEE, ELEC, LIPID, LIVER, BUN #### [facility] [address] [place] [address] Dr. Brissa Ma LIVER PROFILEon 10-08-2021 Albumin [Mass/Vol] 3.4 g/dL Normal 3.4-5.0 [facility] Comment on above: Performed By: #### E LEC, BUN, BNP, LIVER, CREA #### [facility] [address] [address] [address] Brissa Ma Albumin/Globulin [Mass ratio] 1.0 {ratio} Normal [facility] Comment on above: Performed By: #### E LEC, BUN, BNP, LIVER, CREA #### [facility] [address] [address] [address] Brissa Ma ALP [Catalytic activity/Vol] 96 U/L Normal 46-116 [facility] Comment on above: Performed By: #### E LEC, BUN, BNP, LIVER, CREA #### [facility] [address] [address] [address] Brissa Ma ALT [Catalytic activity/Vol] 24 U/L Normal 16-63 [facility] Comment on above: Performed By: #### E LEC, BUN, BNP, LIVER, CREA #### [facility] [address] [place] [address] Dr. Brissa Ma AST [Catalytic activity/Vol] 14 U/L Critically low 15-37 [facility] Comment on above: Performed By: #### E LEC, BUN, BNP, LIVER, CREA #### [facility] [address] [place] [address] Dr. Brissa Ma BILI, CONJUGATED 0.1 mg/dL Normal 0.0-0.2 [facility] Comment on above: Performed By: #### E LEC, BUN, BNP, LIVER, CREA #### [facility] [address] [place] [address] Dr. Brissa Ma Bilirubin [Mass/Vol] 0.4 mg/dL Normal 0.2-1.0 [facility] Comment on above: Performed By: #### E LEC, BUN, BNP, LIVER, CREA #### [facility] [address] [place] [address] Dr. Brissa Ma Globulin (S) [Mass/Vol] 3.5 g/dL Normal [facility] Comment on above: Performed By: #### E LEC, BUN, BNP, LIVER, CREA #### [facility] [address] [place] [address] Dr. Brissa Ma Protein [Mass/Vol] 6.9 g/dL Normal 6.4-8.2 [facility] Comment on above: Performed By: #### E LEC, BUN, BNP, LIVER, CREA #### [facility] [address] [place] [address] Dr. Brissa Ma Vital Signs Date Time Vital Sign Value Performing Clinician Facility 04-08-2023 13:24-0500 Body height 170.2 cm Trip BROOKS Work Phone: [facility] 04-08-2023 13:24-0500 Body mass index (BMI) [Ratio] 28.19 kg/m2 Trip BROOKS Work Phone: [facility] 02-07-2024 13:24-0500 Body weight 81.65 kg Trip BROOKS Work Phone: [facility] 01-14-2023 14:28-0500 Body height 170.2 cm Henrry Issa MD Work Phone: [facility] 01-14-2023 14:28-0500 Body mass index (BMI) [Ratio] 30.07 kg/m2 Henrry Issa MD Work Phone: [facility] 01-14-2023 14:28-050 Body weight 87.09 kg Henrry Issa MD Work Phone: [facility] 01-14-2023 14:28-0500 Diastolic blood pressure 60 mm[Hg] Hernry Issa MD Work Phone: [facility] 01-14-2023 14:28-0500 Heart rate 92 /min Henrry Issa MD Work Phone: [facility] 01-14-2023 14:28-0500 Systolic blood pressure 106 mm[Hg] Henrry Issa MD Work Phone: [facility] 01-02-2023 11:43-0400 Body mass index (BMI) [Ratio] 30.4 kg/m2 JR Hugo Moser Work Phone: [facility] 12-31-2022 13:51-0400 Diastolic blood pressure 70 mm[Hg] JR Hugo Moser Work Phone: [facility] 12-31-2022 13:51-0400 Heart rate 83 /min JR Hugo Moser Work Phone: [facility] 12-31-2022 13:51-0400 Respiratory rate 14 /min JR Hugo Moser Work Phone: [facility] 12-31-2022 13:51-0400 SaO2% (BldA) [Mass fraction] 98 % JR Hugo Moser Work Phone: [facility] 12-31-2022 13:51-0400 Systolic blood pressure 112 mm[Hg] JR Hugo Moser Work Phone: [facility] 12-31-2022 12:00-0400 Body temperature 97.8 [degF] JR Hugo Moser Work Phone: [facility] 12-31-2022 06:00-0400 Body weight 86.5 kg JR Hugo Moser Work Phone: [facility] 12-30-2022 15:37-0400 Inhaled oxygen flow rate 6 L/min JR Hugo Moser Work Phone: [facility] 12-30-2022 15:12-0400 Body height 170.18 cm JR Hugo Moser Work Phone: [facility] 12-30-2022 15:12-0400 Body mass index (BMI) [Ratio] 30.4 kg/m2 JR Hugo Moser Work Phone: [facility] Encounters Encounter Date Encounter Type Care Provider Facility Start: 05-11-2023 End: 05-11-2023 ambulatory GINI RAMIRES Not Available Start: 04-15-2023 End: 04-15-2023 ambulatory Hugo Moser Facility:[facility] Start: 04-15-2023 End: 04-15-2023 ambulatory JR Hugo Moser Work Phone: [facility] Work Phone: Start: 04-15-2023 End: 04-15-2023 Patient encounter procedure JR Hugo Moser Work Phone: [facility]-Pacemaker Check Start: 04-08-2023 End: 04-09-2023 ambulatory TRIP BROWN Not Available Start: 04-08-2023 End: 04-08-2023 Office outpatient new 45 minutes Trip Brown PA Work Phone: [facility] Comment on above: Acute pain of right shoulder; Rotator cuff arthropathy, right; Arthritis of right acromioclavicular joint Start: 01-14-2023 End: 01-14-2023 ambulatory HENRRY [facility] Start: 01-14-2023 End: 01-14-2023 Office outpatient visit 25 minutes Henrry Issa MD Work Phone: [facility] Comment on above: AV block, Mobitz II; Pacemaker; Obesity (BMI 30.0-34.9) Start: 01-08-2023 End: 01-08-[address] [facility] Start: 01-08-2023 End: 01-08-2023 ambulatory [place] Moser Work Phone: [facility] Work Phone: Start: 01-08-2023 End: 01-08-2023 Patient encounter procedure JR [place] Moser Work Phone: [facility] Work Phone: Start: 12-28-2022 End: 12-31-2022 Evaluation and management of inpatient Katie Osborne Facility:[facility] Start: 12-28-2022 End: 12-31-2022 Evaluation and management of inpatient JR [place] Moser Work Phone: [facility] Work Phone: Start: 05-19-2022 End: 05-20-[address] [place] MOSER Facility:[facility] Start: 01-22-2022 End: 01-23-[address] [place] MOSER Facility:[facility] Start: 10-09-2021 Encounter for genera l adult medical examination without abnormal findings DR [place] MOSER [facility] Start: 10-08-2021 End: 10-09-[address] [place] MOSER Facility:[facility] Start: 10-08-2021 End: 10-09-2021 Encounter for general adult medical examination without abnormal findings DR [place] MOSER Facility:[facility] Procedures Date Procedure Procedure Detail Performing Clinician Start: 04-15-2023 Plain chest X-ray JR [place] Moser Work Phone: Start: 04-08-2023 End: 04-08-2023 Arthrocentesis aspir&/inj major jt/bursa w/o us Trip BROOKS Work Phone: Start: 01-14-2023 FOLLOW UP IN CARDIOLOGY HENRRY ISSA Start: 01-08-2023 FOLLOW UP IN CARDIOLOGY HENRRY ISSA Start: 01-08-2023 Plain chest X-ray JR [place] Moser Work Phone: Start: 12-31-2022 Plain chest X-ray JR [place] Moser Work Phone: Start: 12-30-2022 Plain chest X-ray JR [place] Moser Work Phone: Start: 12-30-2022 Implantation of card iac pacemaker JR [place] Moser Work Phone: Plan of Treatment Date Care Activity Detail Author Start: 07-24-2023 End: 07-24-2023 Patient encounter procedure 07/24/2023 1:40 PM EDT Office Visit [facility] [address] [place] [address] Henrry Issa MD [address] [place] [address] [facility] Start: 05-11-2023 End: 05-11-2023 Patient encounter procedure 05/11/2023 10:45 AM EDT Office Visit [facility] [address] [place] [address] Jr. Gini Cárdenas, [address] [place] [address] [facility] Start: 12-31-2022 [facility] Start: 12-30-2022 [facility] Start: 12-28-2022 Insertion of Pacemaker Lead into Right Atrium, Percutaneous Approach Insertion of Pacemaker Lead into Right Atrium, Percutaneous Approach [facility] Start: 12-28-2022 Insertion of Pacemaker Lead into Right Ventricle, Percutaneous Approach Insertion of Pacemaker Lead into Right Ventricle, Percutaneous Approach [facility] Start: 12-28-2022 Insertion of Pacemaker, Dual Chamber into Chest Subcutaneous Tissue and Fascia, Open Approach Insertion of Pacemaker, Dual Chamber into Chest Subcutaneous Tissue and Fascia, Open Approach [facility] Start: 12-28-2022 Hospital admission [facility] Start: 12-28-2022 Referral to pet feeder [facility] Start: 10-31-2022 Influenza vaccination Influenza Vaccine (#1) [facility] Start: 02-05-2022 COVID-19 Vaccine (4 - Moderna series) COVID-19 Vaccine (4 - Moderna series) [facility] Start: 05-18-2019 Pneumococcal Vaccine: 65+ Years (2 - PCV) Pneumococcal Vaccine: 65+ Years (2 - PCV) [facility] Start: 08-18-1989 Zoster Vaccines (1 of 2) Zoster Vaccines (1 of 2) [facility] Start: 08-18-1961 DTaP/Tdap/Td Vaccines (1 - Tdap) DTaP/Tdap/Td Vaccines (1 - Tdap) [facility] Start: 08-18-1958 Urine screening for protein Diabetes: Urine Protein Screening [facility] Start: 08-18-1949 Diabetic foot examination Diabetes: Foot Exam [facility] Start: 08-18-1949 Glaucoma screening Diabetes: Retinopathy Screening [facility] Start: 1940 Hemoglobin A1c measurement Diabetes: Hemoglobin A1C [facility] Start: 1940 Lipid panel Lipid Panel [facility] Start: 1940 Medicare Annual Wellness Visit Medicare Annual Wellness Visit (AWV) [facility] Patient Education Clindamycin (Systemic) [facility] Work Phone: Patient referral [facility] Work Phone: XR Shoulder - right 2 Views XR shoulder 2+ views right Imaging Routine Acute pain of right shoulder 04/08/2023 1:21 PM EST [facility] Work Phone: Immunizations Immunization Date Immunization Notes Care Provider Fa cili 12-11-2021 Moderna COVID-19 vaccine, bivalent, blue cap/goff label *Check age/dose* Henrry Issa MD Work Phone: [facility] 01-31-2021 influenza, injectabl e, quadrivalent, preservative free Henrry Issa MD Work Phone: [facility] Work Phone: 01-31-2021 influenza virus vacc ine, unspecified formulation Henrry Issa MD Work Phone: [facility] Work Phone: 05-17-2018 influenza, injectabl e, quadrivalent, preservative free Henrry Issa MD Work Phone: [facility] Work Phone: 05-17-2018 pneumococcal polysaccharide vaccine, 23 valent Henrry Issa MD Work Phone: [facility] Work Phone: Payers Date Payer Category Payer Self-pay 2022 Unknown [id number] 2004 Medicare [id number] 1959 Medicare [id number] 1959 Unknown [id number] 1940 Unknown [id number] 2.16.84 [id number] 1939 Unknown [id number] 2.16.84 [id number] 1939 Unknown [id number] 2.16.84 [id number] 1939 Unknown [id number] 2.16.8 [id number] 1939 Unknown [id number] 2.16.8 [id number] 1939 Unknown [id number] 2.16.84 [id number] 1939 Unknown [id number] 2.16.84 [id number] 1939 Unknown [id number] 2.16.84 [id number] Unknown [id number] 2.16.8 [id number] Unknown [id number] 2.16.8 [id number] Unknown [id number] 2.16.8 [id number] Social History Date Type Detail Facility Start: 12-30-2022 End: 12-30-2022 Tobacco smoking status NHIS Never smoked tobacco (finding) [facility] Start: 1940 Sex Assigned At Male F [facility] Start: 01-14-2023 End: 04-08-2023 Tobacco use and exposure Smokeless tobacco non-user [facility] Work Phone: Start: 01-14-2023 Alcohol intake Lifetime non-d bertha (finding) [facility] Work Phone: Start: 01-14-2023 History of Social function [facility] Work Phone: Start: 01-14-2023 [facility] Work Phone: Start: 1940 Sex Assigned At Not on file [facility] Work Phone: Start: 01-04-2023 End: 01-14-2023 Exposure to SARS-CoV-2 (event) Not sure [facility] Start: 04-08-2023 Alcohol intake Current drinke r of alcohol (finding) [facility] Medical Equipment Procedure Code Equipment Code Equipment Origin al Text Equipment Identifier Dates Insertion, pacemaker Endocardial pacing lead [id number] FDA Start: 12-30-2022 Insertion, pacemaker Endocardial pacing lead [id number] FDA Start: 12-30-2022 Insertion, pacemaker Dual-chamber implantable pacemaker, rate-responsive ()[id number] FDA Start: 12-30-2022 Goals Date Patient Goal Desired Activity /State Functional Status Date Assessment Result Facility 12-31-2022 Functional status Patient at Baseline [facility] Work Phone: Mental Status Date Assessment Result Facility 12-31-2022 Cognitive function Cognitive Sta tus Patient at Baseline [facility] Work Phone: Clinical Notes 12-28-2022 to 04-08-2023 TODD Driver - 04/08/2023 1:30 PM Adi Issa MD - 01/14/2023 3:10 PM ESTPatient Instructions Note Date & Type Note Facility 04-08-2023 History of Present illness Narrative Associated Order(s): L Inj/Asp: R subacromial bursa; M Inj/Asp: R acromioclavicular Post-Procedure Diagnose(s): Rotator cuff arthropathy, right; Arthritis of right acromioclavicular joint Images from the original note were not included. NAME: Emmanuel Anderson : 1940 HISTORY OF PRESENT ILLNESS: NEW PT Emmanuel Anderson is an 82 y.o. @ male. (PREVIOUS PT 2018) NEW PT PRESENTS WITH (R) SHOULDER DISCOMFORT. SYMPTOMS FOR A FEW WEEKS - DENIES ANY INJURY XRAYS DONE TODAY, 04/08/23 IN CHANGE / EPIC MRI 07/05/18 IN CHANGE (NO EPIC LINK) S/P CORTISONE INJ 05/17/18 PAIN IS INTERMITTENT WITH ACTIVITY / MOVEMENT / LAYING DOWN - PAIN IS ANTERIOR WITH RADIATION DOWN TO HIS ELBOW, DENIES ANY N/T. NOTES LIMITED ROM - SOME CRACKING / CRUNCHES ; SOME WEAKNESS. TAKING ADVIL PRN - DENIES ANY RELIEF. RECENT PACEMAKER ~ 12/20/22 PAST MEDICAL HISTORY: Past Medical History: Diagnosis Date Diabetes (CMS/HCC) PAST SURGICAL HISTORY: Past Surgical History: Procedure Laterality Date INSERT / REPLACE / REMOVE PACEMAKER 12/20/2022 DR WANG SOCIAL HISTORY: Social History Occupational History Not on file Tobacco Use Smoking status: Never Smokeless tobacco: Never Substance and Sexual Activity Alcohol use: Yes Drug use: Never Sexual activity: Not on file ALLERGIES: No Known Allergies HOME MEDICATIONS: Current Outpatient Medications Medication Instructions acarbose (Precose) 100 MG tablet 2 times daily ezetimibe (ZETIA) 5 mg, Oral, Daily Finerenone (KERENDIA PO) Oral Janumet XR 100-1000 MG per 24 hr tablet 1 tablet, Oral, Daily Jardiance 12.5 mg, Oral, Every morning rosuvastatin (CRESTOR) 40 mg, Oral, Daily Sacubitril-Valsartan (ENTRESTO PO) Oral REVIEW OF SYSTEMS: Review of Systems Vitals: Body mass index is 28.19 kg/m . Tobacco Use: Low Risk (04/08/2023) Patient History Smoking Tobacco Use: Never Smokeless Tobacco Use: Never Passive Exposure: Not on file Alcohol Use: Not on file PHYSICAL EXAM: Shoulder Musculoskeletal Exam Inspection Right Right shoulder inspection is normal. Ecchymosis: none Peripheral edema: none Atrophy: mild Deformity: AC joint prominence Masses: none Prior incision: none Palpation Right Crepitus: no crepitus Increased warmth: none Tenderness: present Anterior shoulder: mild AC joint: moderate Rotator cuff: mild Greater tuberosity: mild Medial scapula: none Superior pole of scapula: none Inferior pole of scapula: none Proximal biceps: mild Lateral arm: moderate Elbow: none Range of Motion Right Right shoulder range of motion is normal. Active ROM: pain. Passive ROM: pain. Active forward elevation: 100. Passive forward elevation: 160. Shoulder active abduction: 100 (+ pain passing 90 degrees). Passive abduction: 160. Active external rotation at side: 50. Passive external rotation at side: 70. Internal rotation: L4. Strength Right External rotation: 3/5. External rotation is affected by pain. Internal rotation: 5/5. Abduction: 3/5. Abduction is affected by pain. Biceps: 5/5. Triceps: 5/5. Neurovascular Right Radial pulse: normal and 2+ Capillary refill: <3 sec Axillary nerve sensory distribution: normal Scapula Right Right shoulder scapula is normal. Position: normal Winging: none Special Tests Right Rotator Cuff Signs Neer's test: positive Moses test: positive Painful arc test: positive Biceps/devonte Signs Clicking/popping: positive Speed's test: negative AC Joint Signs Active horizontal adduction pain: positive Single finger test: positive General Constitutional: appears stated age Neurological: alert and oriented x3 IMAGING: L Inj/Asp: R subacromial bursa on 04/08/2023 1:54 PM Indications: pain Details: 21 G needle, posterior approach Medications: 40 mg methylPREDNISolone acetate 40 MG/ML Outcome: tolerated well, no immediate complications Utilizing aseptic technique with universal precautions . Pt given injection Right Shoulder SA space with 2ml of 2 % lidocaine (Code 94916 RT) Procedure, treatment alternatives, risks and benefits explained, specific risks discussed. Consent was given by the patient. M Inj/Asp: R acromioclavicular on 04/08/2023 1:54 PM Indications: pain Details: 21 G needle, anterolateral approach Medications: 0.5 mL bupivacaine PF 0.5 % Outcome: tolerated well, no immediate complications Given with 0.5ml of 2% lidocaine. Moderate improvement in pain post injection. Procedure, treatment alternatives, risks and benefits explained, specific risks discussed. Consent was given by the patient. Patient was prepped and draped in the usual sterile fashion. Orders Placed This Encounter Procedures L Inj/Asp: R subacromial bursa This order was created via procedure documentation M Inj/Asp: R acromioclavicular This order was created via procedure documentation XR shoulder 2+ views right Order Specific Question: Reason for exam: Answer: PAIN ASSESSMENT: ICD-10-CM 1. Acute pain of right shoulder M25.511 XR shoulder 2+ views right 2. Rotator cuff arthropathy, right M12.811 L Inj/Asp: R subacromial bursa 3. Arthritis of right acromioclavicular joint M19.011 M Inj/Asp: R acromioclavicular PLAN: Follow up Dr. Cárdenas in 4 weeks consider need for kyle procedure possible tuberule plasty, versus reverse shoulder replacement. Pt with point tenderness AC joint mild impingement. MRI before pacemaker implant with torn/ retracted cuff. Pt living with symptoms increase pain with night.. pt agreeable to Injections today with surgical and nonsurgical treatment options discussed. Patient previously got 6 months relief with past injection in 2019. Patient like to keep surgery as treatment of last resort, states overall he has felt better since pacemaker implant with tolerance to activity. Questions answered in laymen terms at the bedside. The diagnosis, home exercise plan and any ongoing restrictions/ recommendations reviewed. If unable to be reached in office, I recommend evaluation at nearest Emergency Room if any symptoms worsened or new symptoms develop for requiring urgent evaluation. TODD Driver documented in this encounter [facility] 01-14-2023 History of Present illness Narrative Karen Anderson is a 82 y.o. male Chief Complaint Follow-up HPI Patient returns in follow-up of recent hospitalization for high-grade heart block which necessitated pacemaker implantation. He recovered well. The operative site is satisfactory. He appears to have a small pocket hematoma and this was explained him in detail. He apparently is dramatically restricting his activities based upon the advice given to him by the hospital staff, much to my dismay. He was advised he could adopt unrestricted activities. No restrictions whatsoever. I also suggest he take Advil at bedtime to facilitate sleep and also address the mild pocket hematoma. In regards to other matters his nonischemic cardiomyopathy is stable and class I. Lipids and blood pressure are well controlled. Because of this no adjustments in therapy are necessary Visit Vitals BP 106/60 (BP Location: Right arm, Patient Position: Sitting) Pulse 92 Ht 1.702 m (5' 7 ) Wt 87.1 kg (192 lb) BMI 30.07 kg/m Smoking Status Never BSA 2.03 m Objective Physical Exam Constitutional: Appearance: Normal appearance. He is normal weight. HENT: Nose: Nose normal. Neck: Vascular: No carotid bruit. Cardiovascular: Rate and Rhythm: Normal rate. Pulses: Normal pulses. Heart sounds: Normal heart sounds. Pulmonary: Effort: Pulmonary effort is normal. Abdominal: General: Bowel sounds are normal. Palpations: Abdomen is soft. Genitourinary: Rectum: Normal. Musculoskeletal: General: Normal range of motion. Cervical back: Normal range of motion. Right lower leg: No edema. Left lower leg: No edema. Skin: General: Skin is warm and dry. Neurological: General: No focal deficit present. Mental Status: He is alert. Psychiatric: Mood and Affect: Mood normal. Behavior: Behavior normal. Thought Content: Thought content normal. Judgment: Judgment normal. Current Medications Current Outpatient Medications: acarbose (Precose) 100 mg tablet, Take 1 tablet (100 mg) by mouth 3 times a day with meals., Disp: , Rfl: doxycycline (Monodox) 100 mg capsule, Take 1 capsule (100 mg) by mouth 2 times a day., Disp: , Rfl: ezetimibe (Zetia) 10 mg tablet, Take 1 tablet (10 mg) by mouth once daily., Disp: , Rfl: Janumet XR 100-1,000 mg tablet, ER multiphase 24 hr, Take 1 tablet by mouth once daily., Disp: , Rfl: Jardiance 25 mg, Take 1 tablet (25 mg) by mouth once daily in the morning. Take before meals., Disp: , Rfl: rosuvastatin (Crestor) 40 mg tablet, Take 1 tablet (40 mg) by mouth once daily., Disp: , Rfl: Xarelto 20 mg tablet, Take 1 tablet (20 mg) by mouth once daily., Disp: , Rfl: Assessment/Plan 1. AV block, Mobitz II Follow Up In Cardiology 2. Pacemaker Follow Up In Cardiology 3. Obesity (BMI 30.0-34.9) documented in this encounter [facility] Work Phone: 01-14-2023 Instructions Lupe Burns LPN - 01/14/2023 3:10 PM EST Please bring all medicines, vitamins, and herbal supplements with you when you come to the office. Prescriptions will not be filled unless you are compliant with your follow up appointments or have a follow up appointment scheduled as per instruction of your physician. Refills should be requested at the time of your visit. Pacemaker/Defibrillator follow up per routine documented in this encounter [facility] Work Phone: 12-31-2022 Progress note Note Date/Time December 31, 2022 10:25am [facility] [address] [place] [address] Cardiology Progress Note Signed Patient: Emmanuel Anderson MR#: [id number] : 1940 Acct:[id number] Age/Sex: 82 / M Adm Date: 3 Loc: 3T Room: [address] [place] [address] Type: ADM IN Attending Dr: Katie Osborne MD Copies to: ~ Date of Service: 12/31/2022 Subjective Principal diagnosis: Mobitz type II second-degree AV block Interval history: Patient seen postop day #1. Operative site is clean and dry without hematoma. Pacemaker check satisfactory. Chest x-ray satisfactory. Suitable for discharge. His outpatient pharmacologic regimen should be continued. Clindamycin for 2 days. Wound check in a week. Exam Physical Exam Vital Signs: Temp Pulse Resp BP Pulse Ox O2 Del Method O2 Flow Rate 97.3 F L 78 14 106/67 96 Room Air 6 12/31/22 08:00 12/31/22 08:00 12/31/22 08:00 12/31/22 08:00 12/31/22 08:00 12/31/22 08:11 12/30/22 15:37 HEENT Head: normal to inspection Ears: hearing grossly normal bilaterally Nose: external nose normal and nares normal Face and sinus: normal facial exam Mouth: oral mucosae normal and tongue normal Eyes Conjunctivae: conjunctivae normal Sclera: sclerae normal Neck Neck: normal visual inspection Carotids: normal carotid upstroke Lymphatic: no lymphadenopathy noted Chest Chest palpation & inspection: normal inspection of the chest Resp Effort & Inspection: normal respiratory effort Auscultation: clear to auscultation bilaterally Cardio Rate: regular rate Rhythm: regular rhythm Heart Sounds: S1 normal and S2 normal GI Inspection: normal to inspection Palpation: soft Skin General: no rashes or lesions noted Neuro General: patient alert, patient awake and patient oriented x3 Cognition: normal cognition Motor: muscle tone normal throughout Sensory Exam: no sensory deficits noted Objective Labs 12/31/22 06:36 12/31/22 06:36 Labs: Laboratory Results - last 24 hr 12/30/22 12/30/22 12/31/22 10:56 13:32 06:36 Corrected WBC 6.7 Uncorrected WBC Count 6.7 RBC 4.27 Hgb 13.0 Hct 39.1 MCV 91.5 MCH 30.5 MCHC 33.3 RDW 14.9 H Plt Count 148 L MPV 7.2 Neut % (Auto) 61.2 Lymph % (Auto) 27.7 Harney % (Auto) 8.9 Eos % (Auto) 1.6 Baso % (Auto) 0.6 Nucleat RBC Rel Count 0.0 Neut # (Auto) 4.1 Lymph # (Auto) 1.9 Harney # (Auto) 0.6 Eos # (Auto) 0.1 Baso # (Auto) 0.0 PHA Creatinine Clear Sodium Potassium Chloride Carbon Dioxide Anion Gap BUN Creatinine Est GFR (CKD-EPI) Glucose POC Glucose 206 183 Calcium Magnesium 12/31/22 06:36 Corrected WBC Uncorrected WBC Count RBC Hgb Hct MCV MCH MCHC RDW Plt Count MPV Neut % (Auto) Lymph % (Auto) Harney % (Auto) Eos % (Auto) Baso % (Auto) Nucleat RBC Rel Count Neut # (Auto) Lymph # (Auto) Harney # (Auto) Eos # (Auto) Baso # (Auto) PHA Creatinine Clear 48.99 Sodium 137 Potassium 4.1 Chloride 106 Carbon Dioxide 22.9 Anion Gap 12.2 BUN 23 Creatinine 1.20 Est GFR (CKD-EPI) > 60.0 Glucose 175 H POC Glucose Calcium 8.9 Magnesium 2.1 A&P - Cardiology (1) Mobitz type 2 second degree AV block: Assessment/Problem Details: Satisfactory intervention and pacemaker implantation. Suitable for discharge. Code(s): I44.1 - Atrioventricular block, second degree Status: Acute Plan Discharge today. Wound check in 1 week. Pacemaker follow-up in the clinic as scheduled. Follow-up with his primary pet feeder Dr. [place] Moser henceforth Documented By: Henrry Issa MD 102 Signed By: <Electronically signed by MD Henrry Issa> 12/31/22 1033 [facility] Work Phone: 1(317) 478-890610-31-2023 Progress note Author Katie Osborne [facility] December 30, 2022 2:12pm Note Date/Time December 30, 2022 2 :12pm [facility] [address] [place] [address] Hospitalist Progress Note Signed Patient: Emmanuel Anderson MR#: [id number] : 1940 Acct:[id number] Age/Sex: 82 / M Adm Date: 3 Loc: 3T Room: [address] [place] [address] Type: ADM IN Attending Dr: Katie Osborne MD Copies to: ~ Date of Service: 12/30/2022 Subjective Subjective Narrative: Patient was seen and evaluated at bedside this morning. court recording monitor was reviewed, patient continued to have heart rate as low as upper 30s to 40s. He was given atropine overnight . he does report symptoms of dizziness, lightheadedness, shortness of breath on exertion. Cardiology following. He is NPO today for pacemaker implant. Exam Physical Exam Vital Signs: Temp Pulse Resp BP Pulse Ox O2 Del Method 97.3 F L 57 L 16 118/62 97 Room Air 12/29/22 15:37 12/30/22 13:11 12/30/22 13:11 12/30/22 13:11 12/30/22 13:11 12/30/22 13:11 Narrative: Const General: cooperative HEENT Normal oropharyngeal mucosa without any ulcers or exudates Eyes: Conjunctiva normal Pulmonary Auscultation: clear to auscultation , no crackles, no wheezes Cardiovascular Rate: Bradycardic Rhythm: regular rhythm Heart Sounds: S1 normal, S2 normal and no murmurs GI Inspection: non-distended Palpation: soft, not firm and nontender. No rigidity or rebound. Deferred Neuro General: alert, awake and oriented x3. No obvious new focal deficit Musculoskeletal: normal range of motion Extrem General: no cyanosis, no pedal edema Psych Appearance: appropriate affect. Grossly normal Objective Lab Results 12/30/22 07:00 12/30/22 07:00 Meds Allergies and Active Meds Allergies No Known Drug Allergies Allergy (Verified 12/28/22 10:05) Unknown Reaction Active Meds: Active Medications Generic Name Dose Route Start Last Admin Trade Name Freq PRN Reason Stop Dose Admin Acarbose 100 mg 12/29/22 08:00 12/30/22 08:25 Acarbose 50 Mg Tablet PO 12/29/23 07:59 Not Given DAILY.WITH.BKFAST CLYDE Acetaminophen 650 mg 12/28/22 10:54 Acetaminophen 325 Mg Tablet PO 12/28/23 10:53 Q6HR PRN Pain Scale 1 - 3 or fever Atorvastatin Calcium 80 mg 12/29/22 09:00 12/30/22 08:24 Atorvastatin 80 Mg Tablet PO 12/29/23 08:59 80 mg DAILY CLYDE Administration Atropine Sulfate 0.4 mg 12/28/22 10:54 12/30/22 01:56 Atropine Sulfate 0.4 Mg/Ml Vial IV-PUSH 12/28/23 10:53 0.4 mg ONCE PRN Administration bradycardia Ezetimibe 10 mg 12/28/22 13:15 12/30/22 08:24 Ezetimibe 10 Mg Tablet PO 12/28/23 13:14 10 mg DAILY CLYDE Administration Empagliflozin 25 mg 12/28/22 13:15 12/30/22 08:24 Empagliflozin 25 Mg Tablet PO 12/28/23 13:14 25 mg DAILY CLYDE Administration Enoxaparin Sodium 40 mg 12/29/22 10:00 12/30/22 09:17 Enoxaparin 40 Mg/0.4 Ml Syringe SUBCUT 12/29/23 09:59 Not Given DAILY@10 CLYDE Sodium Chloride 1,000 mls @ 20 mls/hr 12/30/22 14:00 12/30/22 11:43 0.9% Sodium Chloride 1,000 Ml IV 12/30/23 13:59 20 mls/hr .Q24H CLYDE Administration Melatonin 5 mg 12/28/22 10:54 Melatonin 5 Mg Tablet PO 12/28/23 10:53 QHS PRN Insomnia Ondansetron HCl 4 mg 12/28/22 10:54 Ondansetron 4 Mg/2 Ml Vial IV-PUSH 12/28/23 10:53 Q8H PRN Nausea And Vomiting Sacubitril/Valsartan 1 tab 12/30/22 21:00 Sacubitril/Valsartan 24-26mg 1 Tab Tablet PO 12/28/23 20:59 DAILY@2100 CLYDE Sodium Chloride 10 ml 12/28/22 13:39 Sodium Chloride 0.9 % 10 Ml Syringe IV-PUSH 12/28/23 13:38 PRN PRN Flush Sodium Chloride 0 ml 12/29/22 14:37 Sodium Chloride 0.9 % 10 Ml Syringe IV-PUSH 12/29/23 14:36 PRN PRN Flush A&P - Hospitalist Assessment/Plan (1) AV block, 2nd degree: Plan: ? EKG showed sinus rhythm with second-degree AV block with 2:1 AV conduction with HR of 41 ? vitals stable so far but he does seems to have symptomatic bradycardia ? Continue to monitor on telemetry. Overnight HR dropped to upper 30s to 40s. ? The patient is not on any rate control medications. Avoiding AV blockades. ? Echocardiogram pending ? Cardiology input appreciated. Plan for pacemaker today (2) ZAC (acute kidney injury): Plan: ? Patient's baseline is unknown, at [place] his creatinine is 1.6, today here it is 1.4 ? Patient did receive atropine at [place], his heart rate has been improved while admitted here ? Monitor morning BMPs (3) Diabetes mellitus: Plan: ? Continue home medications except for metformin in anticipation of any possibleprocedure requiring contrast dye ? Empagliflozin, sitagliptin, ascarbose (4) HTN (hypertension): Plan: Continue home medications, Entresto (5) Symptomatic bradycardia: Plan: as above Plan ? DVT prophylaxis addressed with Lovenox ? Diabetic diet ? Full code Discussed with patient at bedside, all question answered. Cardiology followingfor pacemaker placement today, discharge planning once cleared by cardiology Documented By: Katie Osborne MD 12/30/22 14 10 Signed By: <Electronically signed by Katie Osborne MD> 12/30/22 [facility] Work Phone: 1(289) 134-182410-30-2023 Progress note Author Henrry Issa [facility] December 29, 2022 2:16pm Note Date/Time December 29, 2022 2 :16pm [facility] [address] [place] [address] Cardiology Progress Note Signed Patient: Emmanuel Anderson MR#: [id number] : 1940 Acct:[id number] Age/Sex: 82 / M Adm Date: 3 Loc: Room: [address] [place] [address] Type: ADM IN Attending Dr: Katie Osborne MD Copies to: ~ Date of Service: 12/29/2022 Subjective Principal diagnosis: Mobitz type II second-degree AV block Interval history: Patient interviewed and examined at the request of Dr. Kenny. Patient is an individual with a several month history of symptomatic bradycardia. No syncope or near syncope but significant activity intolerance. He presented in Mobitz type II second-degree AV block. Intermittently he is conducting in a [id number]. No observed manifestations of complete heart block. The patient several months ago was diagnosed with a abnormal echo . Diagnosis was made by Dr. Moser his physician. At that time he was placed on Entresto and Jardiance. This leads me to suspect the patient was identified as having a cardiomyopathy. Echocardiogram performed today, though, demonstrates normalization of ejection fraction at approximately 55%. No other structural disease findings. The patient's bradycardia arrhythmia has occurred, though, in the absence of negative chronotropic or AV cici blocking drugs. Because of this we believed to be on the basis of intrinsic breakdown of his conduction system. I had a long detailed discussion with the patient regarding this diagnosis and the indications for permanent pacemaker implantation. The indications procedural technique risk benefits and alternatives were discussed and he agrees to theprocedure. They will be scheduled for tomorrow. Exam Physical Exam Vital Signs: Temp Pulse Resp BP Pulse Ox O2 Del Method 97.9 F 75 18 111/64 98 Room Air 12/29/22 11:41 12/29/22 11:41 12/29/22 11:41 12/29/22 11:41 12/29/22 11:41 12/29/22 11:41 HEENT Head: normal to inspection Ears: hearing grossly normal bilaterally Nose: external nose normal and nares normal Face and sinus: normal facial exam Mouth: oral mucosae normal and tongue normal Eyes Conjunctivae: conjunctivae normal Sclera: sclerae normal Neck Neck: normal visual inspection Carotids: normal carotid upstroke Lymphatic: no lymphadenopathy noted Chest Chest palpation & inspection: normal inspection of the chest Resp Effort & Inspection: normal respiratory effort Auscultation: clear to auscultation bilaterally Cardio Rate: bradycardic Rhythm: regular rhythm GI Inspection: normal to inspection Palpation: soft Skin General: no rashes or lesions noted Neuro General: patient alert, patient awake and patient oriented x3 Cognition: normal cognition Motor: muscle tone normal throughout Sensory Exam: no sensory deficits noted Objective Labs 12/29/22 06:09 12/29/22 06:09 Labs: Laboratory Results - last 24 hr 12/28/22 12/29/22 12/29/22 11:19 06:09 06:09 Corrected WBC 7.5 Uncorrected WBC Count 7.5 RBC 4.50 Hgb 13.7 Hct 41.4 MCV 91.9 MCH 30.5 MCHC 33.1 RDW 15.0 H Plt Count 168 MPV 7.2 Neut % (Auto) 48.1 Lymph % (Auto) 41.3 Harney % (Auto) 8.4 Eos % (Auto) 1.4 Baso % (Auto) 0.8 Nucleat RBC Rel Count 0.1 Neut # (Auto) 3.6 Lymph # (Auto) 3.1 Harney # (Auto) 0.6 Eos # (Auto) 0.1 Baso # (Auto) 0.1 PHA Creatinine Clear 42.38 Sodium 138 Potassium 4.7 Chloride 107 Carbon Dioxide 23.9 Anion Gap 11.8 BUN 27 H Creatinine 1.40 H Est GFR (CKD-EPI) 49.870 Glucose 185 H POC Glucose Estimat Average Glucose 212 Hemoglobin A1c 9.0 H Calcium 9.4 Magnesium 2.3 Triglycerides 132 Cholesterol 96 L LDL Cholesterol, Calc 40 VLDL Cholesterol 26 HDL Cholesterol 30 Cholesterol/HDL Ratio 3.2 12/29/22 06:19 Corrected WBC Uncorrected WBC Count RBC Hgb Hct MCV MCH MCHC RDW Plt Count MPV Neut % (Auto) Lymph % (Auto) Harney % (Auto) Eos % (Auto) Baso % (Auto) Nucleat RBC Rel Count Neut # (Auto) Lymph # (Auto) Harney # (Auto) Eos # (Auto) Baso # (Auto) PHA Creatinine Clear Sodium Potassium Chloride Carbon Dioxide Anion Gap BUN Creatinine Est GFR (CKD-EPI) Glucose POC Glucose 177 Estimat Average Glucose Hemoglobin A1c Calcium Magnesium Triglycerides Cholesterol LDL Cholesterol, Calc VLDL Cholesterol HDL Cholesterol Cholesterol/HDL Ratio A&P - Cardiology (1) Mobitz type 2 second degree AV block: Assessment/Problem Details: Patient clearly meets indications for permanent pacemaker implantation. As above indications as well as procedural technique risk benefits and alternativeswere discussed and he agrees to proceed in this fashion. Code(s): I44.1 - Atrioventricular block, second degree Status: Acute Plan Permanent pacemaker implantation to be performed Thursday. Documented By: Henrry Issa MD 3 Signed By: <Electronically signed by MD Henrry Issa> 12/29/22 9166 [facility] Work Phone: 1(853) 440-588710-30-2023 Progress note Author Katie Osborne [facility] December 29, 2022 1:57pm Note Date/Time December 29, 2022 1 :57pm [facility] [address] [place] [address] Hospitalist Progress Note Signed Patient: Emmanuel Anderson MR#: [id number] : 1940 Acct:[id number] Age/Sex: 82 / M Adm Date: 3 Loc: 3T Room: [address] [place] [address] Type: ADM IN Attending Dr: Katie Osborne MD Copies to: ~ Date of Service: 12/29/2022 Subjective Subjective Narrative: Patient was seen and evaluated at bedside this morning. court recording monitor was reviewed, patient continued to have heart rate as low as upper 30s to 40s. He does report symptoms of dizziness, lightheadedness, shortness of breath on exertion. Which he also has been experiencing lately prior admission. Cardiologyfollowing. He is NPO today for evaluation for possible pacemaker. Exam Physical Exam Vital Signs: Temp Pulse Resp BP Pulse Ox O2 Del Method 97.9 F 75 18 111/64 98 Room Air 12/29/22 11:41 12/29/22 11:41 12/29/22 11:41 12/29/22 11:41 12/29/22 11:41 12/29/22 11:41 Narrative: Const General: cooperative HEENT Normal oropharyngeal mucosa without any ulcers or exudates Eyes: Conjunctiva normal Pulmonary Auscultation: clear to auscultation , no crackles, no wheezes Cardiovascular Rate: normal rate Rhythm: regular rhythm Heart Sounds: S1 normal, S2 normal and no murmurs GI Inspection: non-distended Palpation: soft, not firm and nontender. No rigidity or rebound. Deferred Neuro General: alert, awake and oriented x3. No obvious new focal deficit Musculoskeletal: normal range of motion Extrem General: no cyanosis, no pedal edema Psych Appearance: appropriate affect. Grossly normal Objective Lab Results 12/29/22 06:09 12/29/22 06:09 Meds Allergies and Active Meds Allergies No Known Drug Allergies Allergy (Verified 12/28/22 10:05) Unknown Reaction Active Meds: Active Medications Generic Name Dose Route Start Last Admin Trade Name Freq PRN Reason Stop Dose Admin Acarbose 100 mg 12/29/22 08:00 12/29/22 11:45 Acarbose 50 Mg Tablet PO 12/29/23 07:59 Not Given DAILY.WITH.BKFAST CLYDE Acetaminophen 650 mg 12/28/22 10:54 Acetaminophen 325 Mg Tablet PO 12/28/23 10:53 Q6HR PRN Pain Scale 1 - 3 or fever Atorvastatin Calcium 80 mg 12/29/22 09:00 12/29/22 08:08 Atorvastatin 80 Mg Tablet PO 12/29/23 08:59 80 mg DAILY CLYDE Administration Atropine Sulfate 0.4 mg 12/28/22 10:54 12/29/22 03:57 Atropine Sulfate 0.4 Mg/Ml Vial IV-PUSH 12/28/23 10:53 0.4 mg ONCE PRN Administration bradycardia Ezetimibe 10 mg 12/28/22 13:15 12/29/22 08:08 Ezetimibe 10 Mg Tablet PO 12/28/23 13:14 10 mg DAILY CLYDE Administration Empagliflozin 25 mg 12/28/22 13:15 12/29/22 11:45 Empagliflozin 25 Mg Tablet PO 12/28/23 13:14 Not Given DAILY CLYDE Enoxaparin Sodium 40 mg 12/29/22 10:00 Enoxaparin 40 Mg/0.4 Ml Syringe SUBCUT 12/29/23 09:59 DAILY@10 CLYDE Melatonin 5 mg 12/28/22 10:54 Melatonin 5 Mg Tablet PO 12/28/23 10:53 QHS PRN Insomnia Ondansetron HCl 4 mg 12/28/22 10:54 Ondansetron 4 Mg/2 Ml Vial IV-PUSH 12/28/23 10:53 Q8H PRN Nausea And Vomiting Sacubitril/Valsartan 1 tab 12/28/22 21:00 12/29/22 11:45 Sacubitril/Valsartan 24-26mg 1 Tab Tablet PO 12/28/23 20:59 Not Given BID CLYDE Sodium Chloride 10 ml 12/28/22 13:39 Sodium Chloride 0.9 % 10 Ml Syringe IV-PUSH 12/28/23 13:38 PRN PRN Flush A&P - Hospitalist Assessment/Plan (1) AV block, 2nd degree: Plan: ? EKG showed sinus rhythm with second-degree AV block with 2:1 AV conduction with HR of 41 ? vitals stable so far but he does seems to have symptomatic bradycardia ? Continue to monitor on telemetry. Overnight HR dropped to upper 30s to 40s. ? The patient is not on any rate control medications. Avoiding AV blockades. ? Echocardiogram pending ? Cardiology input appreciated. Plan for possible pacemaker. (2) ZAC (acute kidney injury): Plan: ? Patient's baseline is unknown, at [place] his creatinine is 1.6, today here it is 1.4 ? Patient did receive atropine at [place], his heart rate has been improved while admitted here ? Monitor morning BMPs (3) Diabetes mellitus: Plan: ? Continue home medications except for metformin in anticipation of any possibleprocedure requiring contrast dye ? Empagliflozin, sitagliptin, ascarbose (4) HTN (hypertension): Plan: Continue home medications, Entresto (5) Symptomatic bradycardia: Plan: as above Plan ? DVT prophylaxis addressed with Lovenox ? Diabetic diet ? Full code Discussed with patient and family at bedside, all question answered. Cardiologyfollowing for potential pacemaker placement. Documented By: Katie Osborne MD 12/29/22 13 53 Signed By: <Electronically signed by Katie Osborne MD> 12/29/22 2232 [facility] Work Phone: 1(133) 685-194910-29-2023 Consult note Author Haylee Benedict [facility] December 28, 2022 7:25pm Note Date/Time December 28, 2022 7 :22pm [facility] [address] [place] [address] Cardiology Consult Note Signed Patient: Emmanuel Anderson MR#: [id number] : 1940 Acct:[id number] Age/Sex: 82 / M Adm Date: 3 Loc: Room: [address] [place] [address] Type: ADM IN Attending Dr: Jarred Cline DO Copies to: [place] Moser Jr, MD Jarred Sandra, DO~ Cardiology HPI History of Present Illness Consult Date: 12/28/22 Reason for Consult: Symptomatic bradycardia HPI: Mr. Anderson is a 82 year old male with past medical history significant for diabetes and hypertension who presented to the hospital today with complaints oflow heart rate associated with dyspnea on exertion and dizziness for the past 2 weeks. He denies chest pain, orthopnea, palpitations, PND, BLE edema. He states he noticed his heart rate to be low while checking his blood pressure. His friends advised him to be evaluated in the ED. On arrival, EKG showed sinusrhythm with second-degree AV block with 2:1 AV conduction with HR of 41. He is not on any AV cici blockers. Currently on telemetry his back to sinus rhythm in the 70s. He denies any significant cardiac history. Reports having a stresstest about 5 years ago that was normal. He currently takes Entresto and Jardiance which is prescribed by his family physician. Denies history of CHF. Review of Systems Review of Systems All other systems reviewed & are negative unless noted below or in HPI PMFSH Social History Smoking Status: Never smoker Meds Medications and Allergies Allergies No Known Drug Allergies Allergy (Verified 12/28/22 10:05) Unknown Reaction Home Medications acarbose 100 mg tablet 100 mg PO DAILY 12/28/22 [History Confirmed 12/28/22] empagliflozin 25 mg tablet (Jardiance) 25 mg PO DAILY 12/28/22 [History Confirmed 12/28/22] ezetimibe 10 mg tablet 10 mg PO DAILY 12/28/22 [History Confirmed 12/28/22] rosuvastatin 40 mg tablet 40 mg PO DAILY 12/28/22 [History Confirmed 12/28/22] sacubitril 24 mg-valsartan 26 mg tablet (Entresto) 1 tab PO BID 12/28/22 [History Confirmed 12/28/22] sitagliptin phos 100 mg-metformin ER 1,000 mg tablet,extend rel 24h mp (Janumet XR) 100 - 1,000 tab PO DAILY 12/28/22 [History Confirmed 12/28/22] Exam Physical Exam Vital Signs: Temp Pulse Resp BP Pulse Ox O2 Del Method 98.1 F 79 18 120/68 96 Room Air 12/28/22 16:00 12/28/22 16:00 12/28/22 16:00 12/28/22 16:00 12/28/22 16:00 12/28/22 16:00 Narrative: GEN: AAOx3. No acute distress. Lying comfortably flat in bed Neck: No JVD. Lungs: Clear to auscultation bilaterally Heart: Regular rate and rhythm. Normal S1 and S2. No murmurs or rubs appreciated. Abdomen: Soft, nontender, nondistended, bowel sounds present. Extremities: No BLE edema. Neuro: AAOx3. No focal deficits. Results Labs 12/28/22 11:19 Lab results: Comprehensive Metabolic Panel 12/28/22 Range/Units 11:19 Sodium 138 (136-145) mmol/L Potassium 4.6 (3.5-5.1) mmol/L Chloride 107 (98-107) mmol/L Carbon Dioxide 23.3 (21.0-31.0) mmol/L BUN 26 H (7-25) mg/dL Creatinine 1.40 H (0.70-1.30) mg/dL Glucose 183 H (70-100) mg/dL Calcium 9.0 (8.6-10.3) mg/dL Intake and Output 12/28/22 12/28/22 12/28/22 07:59 15:59 23:59 Intake Total 150 / 150 Balance 150 / 150 Intake: Oral 150 / 150 Other: # Unmeasured Voids 1 Weight 91.4 kg Date of Last Bowel Movement 12/27/22 Patient Weight 12/28/22 23:59 Weight 91.4 kg A&P - Cardiology (1) HTN (hypertension): Code(s): I10 - Essential (primary) hypertension (2) AV block, 2nd degree: Code(s): I44.1 - Atrioventricular block, second degree (3) ZAC (acute kidney injury): Code(s): N17.9 - Acute kidney failure, unspecified (4) Diabetes mellitus: Code(s): E11.9 - Type 2 diabetes mellitus without complications Plan 82 year old male with past medical history significant for diabetes and hypertension who presented to the hospital today with complaints of low heart rate associated with dyspnea on exertion and dizziness for the past 2 weeks and was found to be in second-degree AV block with 2:1 AV conduction. EKG showed sinus rhythm with second-degree AV block with 2:1 AV conduction withHR of 41. He is not on any AV cici blockers. Assessment: Symptomatic high-grade AV block/AVN dysfunction ZAC Diabetes Hypertension Recommendations: -Given symptomatic high-grade AV block, will consult with Dr. Issa for PPM placement. Keep n.p.o. past midnight. -Check 2D echocardiogram. -Avoid AV cici blockers. -Continue monitoring on telemetry. Documented By: Haylee Benedict MD 12/28/22 1216 Signed By: <Electronically signed by Haylee Benedict MD> 12/28/221924 [facility] Work Phone: 1(645) 781-744610-29-2023 History and physical note Author Jarred Cline [facility] December 28, 2022 1:36pm Note Date/Time December 28, 2022 1 :21pm [facility] [address] [place] [address] Hospitalist H&P Signed Patient: Emmanuel Anderson MR#: [id number] : 1940 Acct:[id number] Age/Sex: 82 / M Adm Date: 3 Loc: Room: [address] [place] [address] Type: ADM IN Attending Dr: Jarred Cline DO Copies to: DO Jarred Childers Jr, DO~ HPI DATE OF EXAMINATION: 12/28/22 CHIEF COMPLAINT: low heart rate HISTORY OF PRESENT ILLNESS: Mr Anderson is an 82-year-old male with past medical history of diabetes and hypertension who presents hospital today with chief complaint of low heart rate. He was transferred here from [facility], he has been feeling exertional dyspnea for the past week or 2 with examples of mowing the yard, he had to stop 3-4 times to catch his breath, just walking down and back up a flight of stairs he will become extremity short of breath. This is new for him for the past couple of weeks. He denies any chest pain, nausea, vomiting. He checks his blood pressure daily and denies any issues with low blood pressure however has been noticing his heart rate to drop in the low 40s at home. He was subsequently told to come to the emergency room. He went to [place] ER was then transferred back here due to there being no cardiology services at [place]. Patient denies any cough with his shortness of breath, he denies any worsening short of breath while laying flat. He is denies any chest pain. He denies any history of CHF, he did have a stress test roughly 5 years ago and he believes it was normal. He has not noticed any low blood pressure readings withthe episodes of low heart rate. He is not on any rate control medications. Review of Systems Review of Systems All other systems reviewed & are negative unless noted below or in HPI [facility] Social History Smoking Status: Never smoker Meds Medications and Allergies Allergies No Known Drug Allergies Allergy (Verified 12/28/22 10:05) Unknown Reaction Home Medications acarbose 100 mg tablet 100 mg PO 1XD 12/28/22 [History Confirmed 12/28/22] empagliflozin 25 mg tablet (Jardiance) 25 mg PO 1XD 12/28/22 [History Confirmed 12/28/22] ezetimibe 10 mg tablet 10 mg PO 1XD 12/28/22 [History Confirmed 12/28/22] rosuvastatin 40 mg tablet 40 mg PO DAILY 12/28/22 [History Confirmed 12/28/22] sacubitril 24 mg-valsartan 26 mg tablet (Entresto) 1 tab PO BID 12/28/22 [History Confirmed 12/28/22] sitagliptin phos 100 mg-metformin ER 1,000 mg tablet,extend rel 24h mp (Janumet XR) 100 - 1,000 tab PO 1XD 12/28/22 [History Confirmed 12/28/22] Exam Physical Exam Vital Signs: Temp Pulse Resp BP Pulse Ox O2 Del Method 97.7 F 77 18 146/82 H 98 Room Air 12/28/22 11:51 12/28/22 11:51 12/28/22 11:51 12/28/22 11:51 12/28/22 11:51 12/28/22 11:52 Narrative: General: Awake alert, no acute distress HEENT: head atraumatic, normocephalic, moist mucous membranes Neck: supple no masses, no lymphadenopathy CVS: regular rate and rhythm, no murmurs or gallops Respiratory: clear to auscultation bilaterally, no wheezing or crackles, symmetric expansion GI: soft, nondistended, nontender, positive bowel sounds with no organomegaly Extremity: moves all extremities, no restrictions of movements, no calf tenderness, no edema Neuro: AOx3, CN II-VII intact. Moves all extremities in all planes of motion. Skin: dry, intact no rashes or lesions Results Lab Results Labs: Laboratory Last Values PHA Creatinine Clear 43.10 12/28/22 11:19 Sodium 138 mmol/L (136-145) 12/28/22 11:19 Potassium 4.6 mmol/L (3.5-5.1) 12/28/22 11:19 Chloride 107 mmol/L (98-107) 12/28/22 11:19 Carbon Dioxide 23.3 mmol/L (21.0-31.0) 12/28/22 11:19 Anion Gap 12.3 mEq/L (6.0-15.0) 12/28/22 11:19 BUN 26 mg/dL (7-25) H 12/28/22 11:19 Creatinine 1.40 mg/dL (0.70-1.30) H 12/28/22 11:19 Est GFR (CKD-EPI) 49.870 mL/Min 12/28/22 11:19 Glucose 183 mg/dL (70-100) H 12/28/22 11:19 Calcium 9.0 mg/dL (8.6-10.3) 12/28/22 11:19 Magnesium 2.2 mg/dL (1.9-2.7) 12/28/22 11:19 Assessment & Plan Assessment/Plan (1) AV block, 2nd degree: Plan: ? Unable to determine whether type I or type II, it is intermittent in nature. ? EKG captured this to the 1 AV block earlier today ? Patient has normal blood pressure during the episodes in the hospital today ? Continue to monitor on telemetry ? The patient is not on any rate control medications ? Echocardiogram ordered ? Cardiology consulted (2) ZAC (acute kidney injury): Plan: ? Patient's baseline is unknown, at [place] his creatinine is 1.6, today here it is 1.4 ? Likely secondary to decreased perfusion from bradycardia ? Patient did receive atropine at [place], his heart rate has been improved while admitted here ? Monitor morning BMPs (3) Diabetes mellitus: Plan: ? Continue home medications except for metformin in anticipation of any possibleprocedure requiring contrast dye ? Empagliflozin, sitagliptin, ascarbose (4) HTN (hypertension): Plan: Continue home medications, Entresto Plan ? DVT prophylaxis addressed with Lovenox ? Diabetic diet ? Full code Patient admitted with symptomatic bradycardia Have intermittent 2 1 AV block, he will require cardiology work-up and will likely be here more than 2 midnights, he is admitted as inpatient. IP vs OBS Justification Based on differential dx, clinical care plan, and risk of adverse events, if untreated, in my clinical judgement this patient requires an acute care setting as: INPATIENT because of an expectation of an over 2 midnight stay. Estimated length of stay (# of days): 3 Documented By: Jarred Cline DO 12/28/22 1319 Signed By: <Electronically signed by Jarred Cline DO> 12/28/22 9486 [facility] Work Phone: Discharge summary Author Katie Osborne [facility] December 31, 2022 12:42pm Note Date/Time December 31, 2022 1 2:43pm [facility] [address] [place] [address] Discharge Summary Signed Patient: Emmanuel Anderson MR#: [id number] : 1940 Acct:[id number] Age/Sex: 82 / M Adm Date: 3 Loc: Room: [address] [place] [address]: Katie Osborne MD Copies to: [place] Moser Jr, DO Katie Osborne MD~ Providers Date of Discharge: 12/31/22 Discharging Provider: Katie Osborne Primary Care Provider: [place] Moser Consults: 12/28/22 10:54 Consult to Cardiology Routine Discharge Diagnosis (1) Symptomatic bradycardia: (2) Mobitz type 2 second degree AV block: (3) ZAC (acute kidney injury): (4) Diabetes mellitus: (5) HTN (hypertension): Final Diagnosis Final Discharge Diagnosis: S/p pacemaker implant 12/30/2022 as above Summary Hospital Course Hospital course: Mr Anderson is an 82-year-old male with past medical history of diabetes and hypertension who presented with chief complaint of low heart rate. He was transferred here from [facility], he has been feeling exertional dyspnea for the couple of weeks associated with dizziness, lightheadedness. While here he was monitoring on telemetry and noted to have bradycardia which is symptomatic. he did require atropin while here. Cardiology has followed him hereduring hospital course and underwent pacemaker implant on 12/30/22. Patient tolerated procedure with no immediate complications. Patient also received IV hydration for acute kidney injury with remarkable improvement in kidney function. Patient remained hemodynamically stable with improvement in his presenting symptoms. He is ambulating in his room comfortably today. he was cleared from cardiology standpoint for discharge with outpatient follow-ups as directed and instructions. Discussed with patient at bedside, all question answered, patient is suitable for discharge at this time with instructions as provided. Patient is comfortable and in agreement with discharge planning at this time. Condition Condition at Discharge: Stable Time Spent with Patient Time spent providing/coordinating discharge services (# min): 26 Surgeries and Procedures Operation Date: 12/30/22 14:00 Actual Procedures p OR Pacemaker Insertion(Not Applicable) - Henrry Issa MD Diagnostic Studies Completed and Pending Studies Pending studies at discharge: 01/01/23 05:00 Basic Metabolic Panel [CHEM] IN AM Complete Blood Count Auto Diff IN AM Magnesium [CHEM] IN AM 01/02/23 05:00 Basic Metabolic Panel [CHEM] IN AM Complete Blood Count Auto Diff IN AM Magnesium [CHEM] IN AM Labs on day of discharge: 12/31/22 06:36: PHA Creatinine Clear 48.99, Sodium 137, Potassium 4.1, Chloride 106, Carbon Dioxide 22.9, Anion Gap 12.2, BUN 23, Creatinine 1.20, Est GFR (CKD-EPI) > 60.0, Glucose 175 H, Calcium 8.9, Magnesium 2.1 12/31/22 06:36: Corrected WBC 6.7, Uncorrected WBC Count 6.7, RBC 4.27, Hgb 13.0, Hct 39.1, MCV 91.5, MCH 30.5, MCHC 33.3, RDW 14.9 H, Plt Count 148 L, MPV 7.2, Neut % (Auto) 61.2, Lymph % (Auto) 27.7, Harney % (Auto) 8.9, Eos % (Auto) 1.6, Baso % (Auto) 0.6, Nucleat RBC Rel Count 0.0, Neut # (Auto) 4.1, Lymph # (Auto) 1.9, Harney # (Auto) 0.6, Eos # (Auto) 0.1, Baso # (Auto) 0.0 12/30/22 13:32: POC Glucose 183 Exam Physical Exam Vital Signs: Temp Pulse Resp BP Pulse Ox O2 Del Method O2 Flow Rate 97.8 F 83 14 112/70 98 Room Air 6 12/31/22 12:00 12/31/22 12:00 12/31/22 12:00 12/31/22 12:00 12/31/22 12:00 12/31/22 12:00 12/30/22 15:37 Narrative: Const General: cooperative HEENT Normal oropharyngeal mucosa without any ulcers or exudates Eyes: Conjunctiva normal Pulmonary Auscultation: clear to auscultation , no crackles, no wheezes Cardiovascular Rate: Normal rate Rhythm: regular rhythm Heart Sounds: S1 normal, S2 normal and no murmurs GI Inspection: non-distended Palpation: soft, not firm and nontender. No rigidity or rebound. Deferred Neuro General: alert, awake and oriented x3. No obvious new focal deficit Musculoskeletal: normal range of motion Extrem General: no cyanosis, no pedal edema Psych Appearance: appropriate affect. Grossly normal Discharge Plan Discharge Plan Patient Disposition: Home Activity: Ambulate as Tolerated Comment: See pacemaker discharge instructions for activity restrictions. Diet: Low-Sodium and Low-Cholesterol Additional Instructions: DISCHARGE INSTRUCTIONS FOR PERMANENT PACEMAKER AND IMPLANTABLE CARDIOVERTER DEFIBRILLATOR (ICD) INSTRUCTIONS 1. Incision should be kept clean and dry. Please notify us if the site becomes red, swollen, develops drainage, or if you begin having a fever or chills before your 1 week appointment. 2. May shower- avoid running water directly on your incision. 3. Do NOT stop antibiotics. If you have problems with them, please call. 4. Call with any symptoms of dizziness, lightheadedness, or passing out. 5. You may use the involved arm but you must avoid reaching backwards with the involved arm for 6 weeks[address] 6[address] to place your pacemaker/ICD implant card in your wallet/purse to carry with you at all times. You will receive this card in 6-8 weeks by mail. 7. You may resume driving in 2 weeks. 8. Continue all your home medications and the prescribed antibiotics per the medication reconciliation form. APPOINTMENT: 1. Office visit with nurse for incision check in the [facility] Office on - we will call you. 2. Chest x-ray to be done the same day as your device check at [facility] 04/15/2023. 3. Pacemaker/ICD clinic appointment at [facility] on 04/15/2023 at 11:00am . 4. Office visit with Dr. Moser. [] Prescriptions: New clindamycin HCl 300 mg capsule 600 mg PO TID 2 Days Qty: 12 0RF Continued ezetimibe 10 mg tablet 10 mg PO DAILY Patient Comments: TAKE ONE TABLET BY MOUTH DAILY Janumet XR 100-1,000 mg tablet, ER multiphase 24 hr 100 - 1,000 tab PO DAILY Patient Comments: TAKE ONE TABLET BY MOUTH DAILY Jardiance 25 mg tablet 25 mg PO DAILY Patient Comments: TAKE ONE TABLET BY MOUTH IN THE MORNING Entresto 24-26 mg Tablet 1 tab PO DAILY rosuvastatin 40 mg Tablet 40 mg PO DAILY acarbose 100 mg tablet 100 mg PO DAILY Xarelto 20 mg tablet Patient Comments: TAKE ONE TABLET BY MOUTH ONCE DAILY Follow Up: Hugo Moser JR, DO [Primary Care Provider] - 01/07/23 3:15 pm (You have been scheduled for a follow up appointment for the following date and time, please call to reschedule if needed.) Documented By: Katie Osborne MD 12/31/22 12 37 Signed By: <Electronically signed by Katie Osborne MD> 12/31/22 1242 [facility] Work Phone: Evaluation note* Diagnosis Onset Date Resolution Status ZAC (acute kidney injury) ac [place] Diabetes mellitus acute HTN (hypertension) acute Mobitz type 2 second degree AV block acute [facility] Work Phone: Evaluation note* Diagnosis AV block, Mobitz II Mobitz (type) II atrioventricular block Pacemaker Cardiac pacemaker in situ Obesity (BMI 30.0-34.9) documented in this encounter [facility] Work Phone: Evaluation note* Diagnosis Acute pain of right shoulder Rotator cuff arthropathy, right Arthritis of right acromioclavicular joint documented in this encounter [facility] HealthcareEvaluation noteNo assessment information availableC[facility] Work Phone: Hospital Discharge instructions Additional Instructions DISCHARGE INSTRUCTIONS FOR PERMANENT PACEMAKER AND IMPLANTABLE CARDIOVERTER DEFIBRILLATOR (ICD) INSTRUCTIONS 1. Incision should be kept clean and dry. Please notify us if the site becomes red, swollen, develops drainage, or if you begin having a fever or chills before your 1 week appointment. 2. May shower- avoid running water directly on your incision. 3. Do NOT stop antibiotics. If you have problems with them, please call. 4. Call with any symptoms of dizziness, lightheadedness, or passing out. 5. You may use the involved arm but you must avoid reaching backwards with the involved arm for 6 [address] 6[address] Remember to place your pacemaker/ICD implant card in your wallet/purse to carry with you at all times. You will receive this card in 6-8 weeks by mail. 7. You may resume driving in 2 weeks. 8. Continue all your home medications and the prescribed antibiotics per the medication reconciliation form. APPOINTMENT: 1. Office visit with nurse for incision check in the [facility] Office on - 01/08/2023 at 1:30pm. 2. Chest x-ray to be done the same day as your device check at [facility] 04/15/2023. 3. Pacemaker/ICD clinic appointment at [facility] on 04/15/2023 at 11:00am . 4. Office visit with Dr. Moser. [][facility] Work Phone: Reason for referral (narrative)* Consultation (Routine) - Authorized Specialty Diagnoses / Procedures Referred By Mlian stallings Referred To Contact Cardiology Diagnoses AV block, Mobitz II Pacemaker Procedures Follow Up In Cardiology [facility] Iss[facility] MD [facility], [address] [address] Henrry Issa MD [address] [facility] [address], [address] [address] Referral ID Status Reason Start Date Expiration Date V isits Requested Visits Authorized [id number] Authorized 01/14/2023 01/14/2024 1 1 [facility] Work Phone: Summary Purpose Family History No Family History Records FoundNo Family History Records FoundNo Family History Records FoundNo Family History Records Found Advance Directives No Advanced Directives Records Found Advance Directive Response Recorded Date/ Time Advance Directives No December 28, 2022 1:49am Advance Directive Response Recorded Date/ Time Advance Directives No December 28, 2022 12:49am Chief Complaint and Reason for Visit Chief Complaint Symptomatic Bradycar susan Reason for Visit ZAC (acute kidney in [place]) Diabetes mellitus HTN (hypertension) Mobitz type 2 second degree AV block Chief Complaint Symptomatic Bradycar susan i44.1 Reason for Visit ZAC (acute kidney in [place]) Diabetes mellitus HTN (hypertension) Mobitz type 2 second degree AV block Chief Complaint 2nd degree av block. Reason for Referral Specialty Diagnoses / Procedures Referred By Contac t Referred To Contact Orthopaedic Surgery Diagnoses Arthritis of right acromioclavicular joint Procedures M Inj/Asp: R acromioclavicular Trip Brown PA [address] [address] Referral ID Status Reason Start Date Expiration Date V isits Requested Visits Authorized [id number] Pending Review 04/08/2023 10/05/2023 1 1 Specialty Diagnoses / Procedures Referred By Contac t Referred To Contact Orthopaedic Surgery Diagnoses Rotator cuff arthropathy, right Procedures L Inj/Asp: R subacromial bursa Trip Brown PA [address] [address] Referral ID Status Reason Start Date Expiration Date V isits Requested Visits Authorized [id number] Authorized 04/08/2023 10/05/2023 1 1 Additional Source Comments (unrecognized sect ion and content) No Status Records FoundNo Status Records FoundNo Status Records FoundNo Status Records Found INFORMATION SOURCE (unrecogn ized section and content) DATE CREATED AUTHOR 05/25/2022 [facility] pital DATE CREATED AUTHOR AUTHOR'S ORGANIZ ATION 01/17/[address] [facility] DATE CREATED AUTHOR AUTHOR'S ORGANIZ ATION 04/30/2023 [facility] DATE CREATED AUTHOR AUTHOR'S ORGANIZ ATION 05/11/2023 [facility] Care Teams (unrecognized sec tion and content) Team Status: Active Member Role Status Dates Hugo Moser JR DO Primary Care Provider Active Team Status: Inactive Member Role Status Dates Hugo Moser JR DO Primary Care Provider Active Jarred Cline , DO Admit Provider Active Katie Osborne MD Attending Provider Active Ana Maria Prakash RN Other Provider Active Aretha Chaparro DO Other Provider Active Stephanie Steward MD Other Provider Active Henrry Issa MD Other Provider Active Farzana Escalera MD Other Provider Active Hugo Johnson MD Other Provider Active Sangita Salas APRN Other Provider Active Natacha Padron MD Other Provider Active Kang Douglas MD Other Provider Active Jordan Bolanos MD Other Provider Active Nikia Woodward [facility] Other Provider Active Lauren Steiner MD Other Provider Active Team Status: Inactive Member Role Status Dates Hugo Moser JR DO Primary Care Provider Active Henrry Issa MD Attending Provider Active [employer] Relationship Specialty Start Date End Date Hugo Moser DO [address] [place] [address] PCP - General Internal Medicine 12/31/22 [employer] Relationship Specialty Start Date End Date Hugo Moser MD [facility] [place] [address] PCP - General Internal Medicine 04/08/23 Team Status: Inactive Member Role Status Dates Hugo Moser JR DO Primary Care Provider Active Start: April 15, 2023 End: April 15, 2023 Henrry Issa MD Referring Provider Active Start: April 15, 2023 End: April 15, 2023 Sangita Salas APRN Attending Provider Active Start: April 15, 2023 End: April 15, 2023 Reason for Visit (unrecogniz ed section and content) Reason Comments Follow-up Swelling and pain at pacemaker site.Placed 2 weeks ago. Specialty Diagnoses / Procedures Referred By Contac t Referred To Contact Cardiology Diagnoses AV block, Mobitz II Pacemaker Procedures Follow Up In Cardiology Henrry Issa MD [address] [place] [address] 2, [facility] [address] [place] [address] Referral ID Status Reason Start Date Expiration Date V isits Requested Visits Authorized [id number] Authorized 01/14/2023 01/14/2024 1 1 Reason Comments Pain Goals (unrecognized section and content) Goals may be documented in a n alternate section FOR RECORDS PERTAINING TO PATIENTS WHO ARE OR HAVE BEEN ENROLLED IN A CHEMICAL DEPENDENCY/SUBSTANCEABUSE PROGRAM, SOME INFORMATION MAY BE OMITTED. This clinical summary was aggregated from multiple sources. Caution should be exercised in using it in the provision of clinical care. This summary normalizes information from multiple sources, and as a consequence, information in this document may materially change the coding, format and clinical context of patient data. In addition, data may be omitted in some cases. CLINICAL DECISIONS SHOULD BE BASED ON THE PRIMARY CLINICAL RECORDS. [employer] [facility]. provides no warranty or guarantee of the accuracy or completeness of information in this document.
[2023-06-12 11:12] LABS: Alanine Aminotransferase 22 U/L (16-63); Albumin Level 3.6 g/dL (3.4-5.0); Alkaline Phosphatase 111 U/L (46-116); Anion Gap 13.2; Aspartate Amino Transferase 25 U/L (15-37); Bilirubin Direct 0.1 mg/dL (0.0-0.2); Bilirubin Total 0.4 mg/dL (0.2-1.0); Carbon Dioxide 25.5 mmol/L (21.0-32.0); Chloride 105 mmol/L (98-107); Estimated GFR (African America 56 (>=60); Estimated GFR (Non-African Ame 46 (>=60); Globulin 3.6 g/dL; Potassium 4.7 mmol/L (3.5-5.1); Sodium 139 mmol/L (136-145); Thyroid Stimulating Hormone 0.784 uIU/mL (0.358-3.740); Total Protein 7.2 g/dL (6.4-8.2)
[2023-06-12 11:48] LABS: Estimated Average Glucose 249 mg/dL; Glycohemoglobin A1C 10.3 % (4.5-6.2)
== END 2023-06-12 10:22 | disposition home or self-care (01) ==
LOC: LAB 10:21
PROVIDERS: PCP Internal Medicine; Visit Provider Internal Medicine
DX: Z79.899 Other long term (current) drug therapy (principal); N18.30 Chronic kidney disease, stage 3 unspecified; E11.65 Type 2 diabetes mellitus with hyperglycemia; I02.0 Rheumatic chorea with heart involvement
CPT/HCPCS: 36415; 80051; 80076; 82565; 83036; 83880; 84443; 84520

== ENCOUNTER 2023-10-17 06:16 | Outpatient (OUT) | payer MEDICARE, SELFPAY ==
--- OUTSIDE RECORDS SUMMARY | 2023-10-17 06:19 | XMS_ITS | CCD ---
Author Organization [facility] Care Team Providers Care Violin Tutor Name Role Phone VINODONE, DR ROGERS Admitting [...] Care Unavailable VALONE, DR ROGERS Consulting Unavailable Ciro, JR Hugo Ferris Primary Care Provider [phone] DO Jarred Cline Admit Provider MD Katie Osborne Attending Provider [phone] SULEIMAN Prakash Ana Maria Other Provider Unavailable DO Aretha Chaparro Other Provider MD Stephanie Steward Other Provider MD Henrry Issa Other Provider MD Farzana Escalera Other Provider MD Hugo Johnson Other Provider BHAVIN Gregorio Other Provider MD Natacha Padron Other Provider MD Kang Douglas Other Provider MD Jordan Bolanos Other Provider Crissy [facility] Nikia Ferris Other Provider [phone] MD Lauren Steiner Other Provider [phone] JR Hugo Moser Primary Care Provider DO Jarred Cline Admit Provider MD Katie Osborne Attending Provider [phone] SULEIMAN Prakash Other Provider Unavailable DO Aretha Chaparro Other Provider MD Stephanie Steward Other Provider MD Henrry Issa Other Provider MD Farzana Escalera Other Provider MD Hugo Johnson Other Provider BHAVIN Gregorio Other Provider MD Natacha Padron Other Provider MD Kang Douglas Other Provider MD Jordan Bolanos Other Provider Crissy [facility] Nikia Ferris Other Provider MD Lauren Steiner Other Provider MD Henrry Issa Attending Provider Hugo Moser DO Primary Care Provider Hugo Moser MD Primary Care Provider JR Hugo Moser Primary Care Provider [phone] MD Henrry Issa Referring Provider BHAVIN Gregorio Attending Provider Hugo Moser DO Primary Care Provider HENRRY ISSA Referring Unavailable HUGO MOSER Primary Care Unavailable HENRRY ISSA Attending Unavailable HUGO MOSER Primary Care Unavailable HENRRY ISSA Referring Unavailable HENRRY ISSA Attending Unavailable HENRRY ISSA Referring Unavailable HUGO MOSER Primary Care Unavailable Hugo Moser Primary Care Unavailable Henrry Issa Referring Unavail able Sangita Salas Admitting Unavailable Sangita Salas Attending Unavailable Henrry Issa Admitting Unavail able Hugo Moser Primary Care Unavailable Henrry Issa Attending Unavail able Jarred Cline Admitting Unavailable Hugo Moser Primary Care Unavailable Ana Maria Prakash Consulting Unavailable Katie Osborne Attending Unavailable Aretha Chaparro Consulting Unavailable Stephanie Steward Consulting Unavailable Henrry Issa Consulting Unavail able Farzana Escalera Consulting Unavailable Hugo Johnson Consulting Unavailab Sangita [place]alvo Consulting Unavailable Natacha Padron Consulting Unavailable Kang Douglas Consulting Unavailab Jordan Carty Consulting Unavailable Nikia [place] Consulting Unavailable Lauren Steiner Consulting Unavailable Henrry Issa Admitting Unavail Hugo Concepcion Primary Care Unavailable Henrry Issa Attending Unavail TRIP Tomlinson Attending Unavailable TRIP BROWN Referring Unavailable JR. NASREEN, GINI Griffin Attending Unavailpamela CÁRDENAS JR., GINI Griffin Attending UnavailJR Hugo Escamilla Primary Care Provider [phone] MD Henrry Issa Attending Provider Allergies Allergy Classification Reported Allergen(s) Allergy Type Date of Onset Reaction(s) Facility (1 source) ALLERGIES NOT ON FILE; Translations: [ALLERGIES NOT ON FILE] Propensity to adverse reactions (disorder) [facility] 3 Repository Medications Current Medications Medication Drug Class(es) Dates Sig (Normalized) Sig (Original) acarbose 100 mg oral tablet (7 sources) alpha-Glucosidase Inhibitor Start: 12-28-2022 take 100 mg by mouth once daily Acarbose Active 100 MG PO Daily December 28, 2022 12:00am Start: 09-12-2022 take 1 tablet by three times daily acarbose (Precose) 100 mg tablet Take 1 tablet (100 mg) by mouth 3 times daily (morning, midday, late afternoon). 09/12/2022 Active acarbose (Precos e) 100 MG tablet 2 (two) times a day 0 Active clindamycin 300 mg oral capsule (4 sources) Lincosamide Antibacterial Start: 12-31-2022 take 600 mg by mouth three times daily Clindamycin Hcl Active 600 MG PO Three times daily 12 December 31, 2022 12:00am empagliflozin 25 mg oral tablet (7 sources) Sodium-Glucose Cotransporter 2 Inhibitor Start: 11-10-2022 take 1 tablet by mouth once daily Empagliflozin (Jardiance) 25 mg tablet Active 25 MG PO Daily December 28, 2022 12:00am take 12.5 mg by mouth in the mor harry Jardiance 25 MG Take 12.5 mg by mouth in the morning. 0 Active ezetimibe 10 mg oral tablet (7 sources) Dietary Cholesterol Absorption Inhibitor Start: 12-16-2022 take 10 mg by mouth once daily Ezetimibe Active 10 MG PO Daily December 28, 2022 12:00am Start: 12-16-2022 take 0.5 tablet by m outh once daily ezetimibe (Zetia) 10 mg tablet Take 0.5 tablets (5 mg) by mouth once daily. 12/16/2022 Active take 5 mg by mouth i n the morning ezetimibe (Zetia) 10 MG tablet Take 5 mg by mouth in the morning. 0 Active finerenone (KERENDIA ORAL) (1 source) take 1 tablet by mouth once daily finerenone (KERENDIA ORAL) Take 1 tablet by mouth once daily. Active Finerenone (KERENDIA PO) (1 source) Finerenone (KERE NDIA PO) Take by mouth 0 Active metFORMIN hydrochloride 500 mg oral tablet (1 source) Biguanide Start: 4 metFORMIN (Glucophage) 500 mg tablet Take 1 tablet (500 mg) by mouth. Take one tablet by mouth at noon and two tablets by mouth at supper 06/25/2023 Active 24 hr metFORMIN hydrochloride 1000 mg / SITagliptin 100 mg extended release oral tablet (7 sources) Biguanide, Dipeptidyl Peptidase 4 Inhibitor Start: 3 End: 4 take 1 tablet by mouth once daily Sitagliptin Phos-Metformin (Janumet Xr) 100-1,000 mg tablet, ER multiphase 24 hr Active 100 - 1000 TAB PO Daily December 28, 2022 12:00am take 1 tablet by dannie th every twenty-four hours in the morning Janumet XR 100-1000 MG per 24 hr tablet Take 1 tablet by mouth in the morning. 0 Active Ozempic 1 mg/dose (4 mg/3 mL) pen injector (1 source) Start: 05-18-2023 inject 1 mg by subcutaneous injection every week Ozempic 1 mg/dose (4 mg/3 mL) pen injector Inject 1 mg under the skin 1 (one) time per week. 05/18/2023 Active rivaroxaban 20 mg oral tablet (6 sources) Factor Xa Inhibitor Start: 12-08-2022 Rivaroxaban (Xarelto) 20 mg tablet Active MG TABLET December 30, 2022 12:00am rosuvastatin calcium 40 mg oral tablet (7 sources) HMG-CoA Reductase Inhibitor Start: 11-11-2022 take 40 mg by mouth once daily Rosuvastatin Active 40 MG PO Daily December 28, 2022 12:00am sacubitril 24 mg / valsartan 26 mg oral tablet (8 sources) Angiotensin 2 Receptor Maria Victoria Start: 12-28-2022 End: 07-24-2023 take 1 tablet by mouth once daily Sacubitril-Valsar zavala (Entresto) 24-26 mg Tablet Active 1 TAB PO Daily December 28, 2022 12:00am Sacubitril-Valsa rtan (ENTRESTO PO) Take by mouth 0 Active Completed/Discontinued Medications Medication Drug Class(es) Dates Sig (Normalized) Sig (Original) 5 ml bupivacaine hydrochloride 5 mg/ml injection (2 sources) Amide Local Anesthetic Start: 4 End: 4 bupivacaine PF (Marcaine) 0.5 % injection 0.5 mL doxycycline monohydrate 100 mg oral capsule (2 sources) Tetracycline-class Drug Start: 3 End: 4 take 1 capsule by mouth twice daily doxycycline (Monodox) 100 mg capsule Take 1 capsule (100 mg) by mouth 2 times a day. 05/12/2022 07/24/2023 Discontinued (Therapy completed) losartan potassium 25 mg oral tablet (1 [...] Active Problems Problem Classification Problem Date Documented Date Episodic/Chronic Acute and unspecified renal failure (7 sources) Acute renal failure syndrome; Translations: [Acute kidney failure, unspecified] Onset: 3 12-28-2022 Episodic Cardiac dysrhythmias (8 sources) Bradycardia; Translations: [Bradycardia, unspecified] 12-31-2022 Episodic Conduction disorders (20 sources) Mobitz type II atrioventricular block; Translations: [Atrioventricular block, second degree] Onset: 3 12-29-2022 Chronic Congestive heart failure; nonhypertensive (4 sources) Chronic diastolic (congestive) heart failure; Translations: [CHRONIC DIASTOLIC HEART FAILURE] Onset: 3 Chronic Diabetes mellitus with complications (2 sources) Type 2 diabetes mellitus with hyperglycemia; Translations: [Type 2 diabetes mellitus with diabetic chronic kidney disease] Onset: 2 Chronic Diabetes mellitus without complication (9 sources) Diabetes mellitus; Translations: [Type 2 diabetes mellitus without complications] Onset: 3 12-28-2022 Chronic Disorders of lipid metabolism (5 sources) Mixed hyperlipidemia; Translations: [Mixed hyperlipidemia] Onset: 3 01-14-2023 Chronic Essential hypertension (7 sources) Hypertensive disorder; Translations: [Essential (primary) hypertension] [...] 04-08-2023 Chronic Other aftercare (1 source) Other oil heaterman (current) drug therapy; Translations: [OTH APICULTURIST 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 THERAPY] Onset: 3 Episodic Other non-traumatic joint disorders (1 source) Rotator cuff arthropathy of right shoulder; Translations: [Other specific arthropathies, not elsewhere classified, right shoulder] 04-08-2023 Chronic Other non-traumatic joint disorders (1 source) Pain in right shoulder; Translations: [Pain in joint, shoulder region] 04-07-2023 Episodic Other nutritional; endocrine; and metabolic disorders (3 sources) Obese class I; Translations: [Obesity, unspecified] Onset: 3 01-14-2023 Chronic Other nutritional; endocrine; and metabolic disorders (2 sources) Body mass index 30+ - obesity; Translations: [Body mass index (BMI) 30.0-30.9, adult] Onset: 4 07-24-2023 Chronic Other nutritional; endocrine; and metabolic disorders (2 sources) Body mass index (BMI) 30.0-30.9, adult; Translations: [Body mass index (BMI) 30.0-30.9, adult] Onset: 4 Chronic Other nutritional; endocrine; and metabolic disorders (2 sources) Obesity, unspecified; Translations: [Obesity, unspecified] Onset: 3 Chronic Shauna-; endo-; and myocarditis; cardiomyopathy (except that caused by tuberculosis or sexually transmitted disease) (5 sources) Cardiomyopathy; Translations: [Other cardiomyopathies] Onset: 3 01-14-2023 Chronic Unclassified (1 source) CHRN KIDNEY DISEASE STG [...] Classification Problem Date Documented Da te Episodic/Chronic Phlebitis; thrombophlebitis and thromboembolism (2 sources) Deep venous thrombosis; Translations: [Acute embolism and thrombosis of unspecified deep veins of unspecified lower extremity] Onset: 01-14-2023 01-14-2023 Episodic Unclassified (2 sources) Onset: 01-14-2023 01-14-2023 Results Test Name Value Interpretation Reference Range Facility XR chest 2V*on 04-15-2023 XR chest 2V* [facility] Main [address] [address] XRay Report Signed Patient: Emmanuel Jiménez MR#: [id number] 49 : 1940 Acct:[id number] Age/Sex: 82 / M ADM Date: 04/15/23 Loc: [facility] Room: Type: [facility] Attending Dr: Sangita Salas APRN Copies to: BHAVIN Beasley MD Ordering Provider: [...] Niki Scott M.D.04/15/2023 2:33 PM Dictation Location: [place] [address] Transcribed By: [facility] 04/15/23 1433 Dictated By: Niki Scott MD 04/15/23 1431 Signed By: 04/15/23 1433 Normal [facility] L Inj/Asp: R subacromial bur saon 04-08-2023 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 Pt given injection Right Shoulder SA space with 2ml of 2 % lidocaine (Code 49447 RT) Procedure, treatment alternatives, risks and benefits explained, specific risks discussed. Consent was given by the patient. [facility] M Inj/Asp: R acromioclavicul garrett 04-08-2023 [...] and draped in the usual sterile fashion. [facility] XR chest 2V*on 01-08-2023 XR chest 2V* [facility] [place] [address] XRay Report Signed Patient: Emmanuel Jiménez MR#: [id number] [birth year] : 1940 Acct:[id number] Age/Sex: 82 / M ADM Date: 01/08/23 Loc: XD Room: Type: [facility] Attending Dr: Henrry Issa MD Copies to: [...] Bradley Uribe M.D.01/08/2023 5:16 PM Dictation Location: [place] [address] Transcribed By: [facility] 01/08/231715 Dictated By: Bradley Uribe DO 01/08/231714 Signed By: 01/08/231715 Normal [facility] Basic Metabolic Panelon Anion gap [Moles/Vol] 12.2 mmol/L Normal 6.0-15.0 [facility] Comment on above: Performed By: #### C BC, BMP, MG ####[facility] [id number] Calcium [Mass/Vol] 8.9 mg/dL Normal 8.6-10.3 [facility] Comment on above: Performed By: #### C BC BMP, MG ####[address] Chloride [Moles/Vol] 106 mmol/L Normal 98-107 [facility] Comment on above: Performed By: #### C BC BMP, MG ####[address] CO2 [Moles/Vol] 22.9 mmol/L Normal 21.0-31.0 [facility] Comment on above: Performed By: #### C BC BMP, MG ####[address] Creatinine [Mass/Vol] 1.20 mg/dL Normal 0.70-1.30 [facility] Comment on above: Performed By: #### C BC BMP, MG ####[address] Creatinine Clr Calc Pharmacy 48.99 Normal [facility] Comment on above: Performed By: #### C BC BMP, MG ####[address] GFR/1.73 sq M.predicted MDRD (S/P/Bld) [Vol rate/Area] mL/min/{1.73_m2} Normal [facility] Comment on above: Performed By: #### C BC BMP, MG ####[address] Glucose [Mass/Vol] 175 mg/dL High 70-100 [facility] Comment on above: Result Comment: [place] Glucose Reference Range is dependent on time and content of last meal. Glucose of more than 200 mg/dL in a nonstressed, ambulatory subject supports the diagnosis of Diabetes Mellitus. ADA recommended reference range Performed By: #### C BC, BMP, MG ####[address] Potassium [Moles/Vol] 4.1 mmol/L Normal 3.5-5.1 [facility] Comment on above: Performed By: #### C BC, BMP, MG ####[facility] Sodium [Moles/Vol] 137 mmol/L Normal 136-145 [facility] Comment on above: Performed By: #### C BC, BMP, MG ####[facility] Urea nitrogen [Mass/Vol] 23 mg/dL Normal 7-25 [facility] Comment on above: Performed By: #### C BC, BMP, MG ####[place] [id number] [address] Basophils Auto (Bld) [#/Vol] Ordered By: Jarred Cline on 12-31-2022 Basophils (Bld) [#/Vol] 0.0 10*3/uL 0.0-0.2 [facility] Basophils/100 WBC Auto (Bld) Ordered By: Jarred Cline on 12-31-2022 Basophils/100 WBC (Bld) 0.6 % . [facility] Calcium [Mass/volume] in Ser um or PlasmaOrdered By: Jarred Cline on 12-31-2022 Calcium [Mass/Vol] 8.9 mg/dL 8.6-10.3 [facility] Carbon dioxide, total [Moles /volume] in Serum or PlasmaOrdered By: Jarred Cline on 12-31-2022 CO2 [Moles/Vol] 22.9 mmol/L 21.0-31.0 [facility] Chloride [Moles/volume] in S chiquis or PlasmaOrdered By: Jarred Cline on 12-31-2022 Chloride [Moles/Vol] 106 mmol/L 98-107 [facility] Complete Blood Count Auto Di ffon 12-31-2022 Basophils (Bld) [#/Vol] 0.0 10*3/uL Normal 0.0-0.2 [facility] Comment on above: Result Comment: PERF ORMED BY: [facility] [address] [place] [address] PATHOLOGIST MOLDING MANAGER GENNY MCMULLEN M.D. Performed By: #### C BC BMP, MG ####[address] Basophils/100 WBC (Bld) 0.6 % Normal . [facility] Comment on above: Performed By: #### C BC, BMP, MG ####[address] Eosinophils (Bld) [#/Vol] 0.1 10*3/uL Normal 0.0-0.45 [facility] Comment on above: Performed By: #### C BC BMP, MG ####[address] Eosinophils/100 WBC (Bld) 1.6 % Normal . [facility] Comment on above: Performed By: #### C BC BMP, MG ####[address] Erythrocyte distribution width (RBC) [Ratio] 14.9 % High 12.0-14.8 [facility] Comment on above: Performed By: #### C BC BMP, MG ####[address] Hematocrit (Bld) [Volume fraction] 39.1 % Normal 38.8-50.0 [facility] Comment on above: Performed By: #### C BC BMP, MG ####[address] Hemoglobin (Bld) [Mass/Vol] 13.0 g/dL Normal 13.0-17.0 [facility] Comment on above: Performed By: #### C BC BMP, MG ####[address] Lymphocytes (Bld) [#/Vol] 1.9 10*3/uL Normal 1.00-4.8 [facility] Comment on above: Performed By: #### C BC, BMP, MG ####[address] Lymphocytes/100 WBC (Bld) 27.7 % Normal . [facility] Comment on above: Performed By: #### C BC BMP, MG ####[address] MCH (RBC) [Entitic mass] 30.5 pg Normal 27.5-35.2 [facility] Comment on above: Performed By: #### C BC, BMP, MG ####[address] MCV (RBC) [Entitic vol] 91.5 fL Normal 83.5-101 [facility] Comment on above: Performed By: #### C BC BMP, MG ####[address] Mean Corpuscular HGB Conc 33.3 g/dL Normal 32.5-35.6 [facility] Comment on above: Performed By: #### C BC BMP, MG ####[address] Monocytes (Bld) [#/Vol] 0.6 10*3/uL Normal 0.0-0.8 [facility] Comment on above: Performed By: #### C BC, BMP, MG ####[address] Monocytes/100 WBC (Bld) 8.9 % Normal . [facility] Comment on above: Performed By: #### C BC, BMP, MG ####[address] Neutrophils (Bld) [#/Vol] 4.1 10*3/uL Normal 1.8-7.7 [facility] Comment on above: Performed By: #### C BC, BMP, MG ####[address] Neutrophils/100 WBC (Bld) 61.2 % Normal . [facility] Comment on above: Performed By: #### C BC, BMP, MG ####[place] [id number] [address] NRBC% 0.0 /100{WBC} Normal 0-0.5 [facility] Comment on above: Performed By: #### C BC, BMP, MG ####[place] [id number] [address] Platelet mean volume (Bld) [Entitic vol] 7.2 fL Normal 6.6-10.1 [facility] Comment on above: Performed By: #### C BC, BMP, MG ####[address] Platelets (Bld) [#/Vol] 148 10*3/uL Low 150-450 [facility] Comment on above: Performed By: #### C BC, BMP, MG ####[address] RBC (Bld) [#/Vol] 4.27 10*6/uL Normal 3.90-5.60 [facility] Comment on above: Performed By: #### C BC, BMP, MG ####[address] WBC (Bld) [#/Vol] 6.7 10*3/uL Normal 4.1-10.5 [facility] Comment on above: Performed By: #### C BC, BMP, MG ####[address] Creatinine [Mass/volume] in Serum or PlasmaOrdered By: Jarred Cline on 12-31-2022 Creatinine [Mass/Vol] 1.20 mg/dL 0.70-1.30 [facility] Eosinophils Auto (Bld) [#/Vo l]Ordered By: Jarred Cline on 12-31-2022 Eosinophils (Bld) [#/Vol] 0.1 10*3/uL 0.0-0.45 [facility] Eosinophils/100 WBC Auto (Bl d)Ordered By: Jarred Cline on 12-31-2022 Eosinophils/100 WBC (Bld) 1.6 % . [facility] Erythrocyte distribution wid th Auto (RBC) [Ratio]Ordered By: Jarred Cline on 12-31-2022 Erythrocyte distribution width (RBC) [Ratio] 14.9 % 12.0-14.8 [facility] Glucose [Mass/volume] in Ser um or PlasmaOrdered By: Jarred Cline on 12-31-2022 Glucose [Mass/Vol] 175 mg/dL 70-100 [facility] Comment on above: ADA recommended refe rence rangeRandom Glucose Reference Range is dependent on time and content of last meal. Glucose of more than 200 mg/dL in a nonstressed, ambulatory subject supports the diagnosis of Diabetes Mellitus. Hematocrit Auto (Bld) [Volum e fraction]Ordered By: Jarred Cline on 12-31-2022 Hematocrit (Bld) [Volume fraction] 39.1 % 38.8-50.0 [facility] Hemoglobin [Mass/volume] in BloodOrdered By: Jarred Cline on 12-31-2022 Hemoglobin (Bld) [Mass/Vol] 13.0 g/dL 13.0-17.0 [facility] Leukocytes [#/volume] correc adela for nucleated erythrocytes in Blood by Automated counOrdered By: Jarred Cline on 12-31-2022 WBC corrected for nucl RBC Auto (Bld) [#/Vol] 6.7 10*3/uL 4.1-10.5 [facility] Lymphocytes Auto (Bld) [#/Vo l]Ordered By: Jarred Cline on 12-31-2022 Lymphocytes (Bld) [#/Vol] 1.9 10*3/uL 1.00-4.8 [facility] Lymphocytes/100 WBC Auto (Bl d)Ordered By: Jarred Cline on 12-31-2022 Lymphocytes/100 WBC (Bld) 27.7 % . [facility] MCH Auto (RBC) [Entitic mass ]Ordered By: Jarred Cline on 12-31-2022 MCH (RBC) [Entitic mass] 30.5 pg 27.5-35.2 [facility] MCHC Auto (RBC) [Mass/Vol]Or dered By: Jarred Cline on 12-31-2022 MCHC (RBC) [Mass/Vol] 33.3 g/dL 32.5-35.6 [facility] MCV Auto (RBC) [Entitic vol] Ordered By: Jarred Cline on 12-31-2022 MCV (RBC) [Entitic vol] 91.5 fL 83.5-101 [facility] Magnesiumon 12-31-2022 Magnesium [Mass/Vol] 2.1 mg/dL Normal 1.9-2.7 [facility] Comment on above: Result Comment: PERF ORMED BY: [facility] [address] [place] [address] PATHOLOGIST MOLDING MANAGER GENNY MCMULLEN M.D. Performed By: #### C BC, BMP, MG ####[facility] [place] [address] [facility] Magnesium [Mass/volume] in S chiquis or PlasmaOrdered By: Jarred Cline on 12-31-2022 Magnesium [Mass/Vol] 2.1 mg/dL 1.9-2.7 [facility] Monocytes Auto (Bld) [#/Vol] Ordered By: Jarred Cline on 12-31-2022 Monocytes (Bld) [#/Vol] 0.6 10*3/uL 0.0-0.8 [facility] Monocytes/100 WBC Auto (Bld) Ordered By: Jarred Cline on 12-31-2022 Monocytes/100 WBC (Bld) 8.9 % . [facility] Neutrophils Auto (Bld) [#/Vo l]Ordered By: Jarred Cline on 12-31-2022 Neutrophils (Bld) [#/Vol] 4.1 10*3/uL 1.8-7.7 [facility] Neutrophils/100 WBC Auto (Bl d)Ordered By: Jarred Cline on 12-31-2022 Neutrophils/100 WBC (Bld) 61.2 % . [facility] No Panel InformationOrdered By: Jarred Cline on 12-31-2022 Estimated GFR (CKD-EPI) > 60.0 mL/Min [facility] Creatinine Clearance (Chem 48.99 [facility] Nucleated erythrocytes [Pres ence] in Blood by Automated countOrdered By: Jarred Cline on 12-31-2022 Nucleated RBC Auto Ql (Bld) 0.0 /100{WBC} 0-0.5 [facility] Platelet mean volume Auto (B ld) [Entitic vol]Ordered By: Jarred Cline on 12-31-2022 Platelet mean volume (Bld) [Entitic vol] 7.2 fL 6.6-10.1 [facility] Platelets Auto (Bld) [#/Vol] Ordered By: Jarred Cline on 12-31-2022 Platelets (Bld) [#/Vol] 148 10*3/uL 150-450 [facility] Potassium [Moles/volume] in Serum or PlasmaOrdered By: Jarred Cline on 12-31-2022 Potassium [Moles/Vol] 4.1 mmol/L 3.5-5.1 [facility] RBC Auto (Bld) [#/Vol]Ordere d By: Jarred Cline on 12-31-2022 RBC (Bld) [#/Vol] 4.27 10*6/uL 3.90-5.60 [facility] Serum or plasma anion gap de terminationOrdered By: Jarred Cline on 12-31-2022 Anion gap [Moles/Vol] 12.2 mmol/L 6.0-15.0 [facility] Sodium [Moles/volume] in Ser um or PlasmaOrdered By: Jarred Cline on 12-31-2022 Sodium [Moles/Vol] 137 mmol/L 136-145 [facility] Urea nitrogen [Mass/volume] in Serum or PlasmaOrdered By: Jarred Cline on 12-31-2022 Urea nitrogen [Mass/Vol] 23 mg/dL 7-25 [facility] WBC Auto (Bld) [#/Vol]Ordere d By: Jarred Cline on 12-31-2022 WBC (Bld) [#/Vol] 6.7 10*3/uL 4.1-10.5 [facility] XR chest 2V*on 12-31-2022 XR chest 2V* [address] [place] [address] XRay Report Signed Patient: Emmanuel Jiménez MR#: [id number] 48 : 1940 Acct:[id number] Age/Sex: 82 / M ADM Date: 12/28/22 Loc: Room: [address] [place] [address] Type: ADM IN Attending Dr: Katie Osborne [...] Bradley Uribe M.D.12/31/2022 8:03 AM Dictation Location: [place] [address] Transcribed By: [facility] 12/31/22 08 Dictated By: Bradley Uribe DO 12/31/22 0801 Signed By: 12/31/22 0803 Normal [facility] [facility] Activated partial thrombopla stin time (aPTT) in platelet poor plasma by coagulation aOrdered By: Henrry Issa on 12-30-2022 aPTT Coag (PPP) [Time] 30.2 s 25.1-36.5 [facility] Comment on above: A hematocrit value g reater than 55% may lead to inaccurate results in coagulation testing. Patients having hematocrit values >55% require a special collection tube for coagulation studies. Please contact the laboratory at [phone] for redraw instructions. Basic Metabolic Panelon 10-3 Anion gap [Moles/Vol] 10.6 mmol/L Normal 6.0-15.0 [facility] Comment on above: Performed By: #### M G, PTT, PT, CBC, BMP #### [address] Calcium [Mass/Vol] 9.4 mg/dL Normal 8.6-10.3 [facility] Comment on above: Performed By: #### M G, PTT, PT, CBC, BMP #### [place] [address] [place] Chloride [Moles/Vol] 107 mmol/L Normal 98-107 [facility] Comment on above: Performed By: #### M G, PTT, PT, CBC, BMP #### [address] CO2 [Moles/Vol] 27.0 mmol/L Normal 21.0-31.0 [facility] Comment on above: Performed By: #### M G, PTT, PT, CBC, BMP #### [address] Creatinine [Mass/Vol] 1.58 mg/dL High 0.70-1.30 [facility] Comment on above: Performed By: #### M G, PTT, PT, CBC, BMP #### [address] Creatinine Clr Calc Pharmacy 37.51 Normal [facility] Comment on above: Performed By: #### M G, PTT, PT, CBC, BMP #### [place] [address] [place] GFR/1.73 sq M.predicted MDRD (S/P/Bld) [Vol rate/Area] 43.132 mL/min/{1.73_m2} Normal [facility] Comment on above: Performed By: #### M G, PTT, PT, CBC, BMP #### [address] Glucose [Mass/Vol] 254 mg/dL High 70-100 [facility] Comment on above: Result Comment: [facility] Glucose Reference Range is dependent on time and content of last meal. Glucose of more than 200 mg/dL in a nonstressed, ambulatory subject supports the diagnosis of Diabetes Mellitus. ADA recommended reference range Performed By: #### M G, PTT, PT, CBC, BMP #### [address] Potassium [Moles/Vol] 4.6 mmol/L Normal 3.5-5.1 [facility] Comment on above: Performed By: #### M G, PTT, PT, CBC, BMP #### [address] Sodium [Moles/Vol] 140 mmol/L Normal 136-145 [facility] Comment on above: Performed By: #### M G, PTT, PT, CBC, BMP #### [address] Urea nitrogen [Mass/Vol] 30 mg/dL High 7-25 [facility] Comment on above: Performed By: #### M G, PTT, PT, CBC, BMP #### [address] Complete Blood Count Auto Di ffon 12-30-2022 Basophils (Bld) [#/Vol] 0.1 10*3/uL Normal 0.0-0.2 [facility] Comment on above: Result Comment: PERF ORMED BY: [place] [address] PATHOLOGIST MOLDING MANAGER GENNY MCMULLEN M.D. Performed By: #### M G, PTT, PT, CBC, BMP #### [address] Basophils/100 WBC (Bld) 1.1 % Normal . [facility] Comment on above: Performed By: #### M G, PTT, PT, CBC, BMP #### [address] Eosinophils (Bld) [#/Vol] 0.1 10*3/uL Normal 0.0-0.45 [facility] Comment on above: Performed By: #### M G, PTT, PT, CBC, BMP #### [place] [address] Eosinophils/100 WBC (Bld) 1.7 % Normal . [facility] Comment on above: Performed By: #### M G, PTT, PT, CBC, BMP #### [address] Erythrocyte distribution width (RBC) [Ratio] 15.2 % High 12.0-14.8 [facility] Comment on above: Performed By: #### M G, PTT, PT, CBC, BMP #### [address] Hematocrit (Bld) [Volume fraction] 41.4 % Normal 38.8-50.0 [facility] Comment on above: Performed By: #### M G, PTT, PT, CBC, BMP #### [address] Hemoglobin (Bld) [Mass/Vol] 13.8 g/dL Normal 13.0-17.0 [facility] Comment on above: Performed By: #### M G, PTT, PT, CBC, BMP #### [address] Lymphocytes (Bld) [#/Vol] 1.9 10*3/uL Normal 1.00-4.8 [facility] Comment on above: Performed By: #### M G, PTT, PT, CBC, BMP #### [address] Lymphocytes/100 WBC (Bld) 31.9 % Normal . [facility] Comment on above: Performed By: #### M G, PTT, PT, CBC, BMP #### [address] MCH (RBC) [Entitic mass] 30.5 pg Normal 27.5-35.2 [facility] Comment on above: Performed By: #### M G, PTT, PT, CBC, BMP #### [address] MCV (RBC) [Entitic vol] 91.5 fL Normal 83.5-101 [facility] Comment on above: Performed By: #### M G, PTT, PT, CBC, BMP #### [address] Mean Corpuscular HGB Conc 33.3 g/dL Normal 32.5-35.6 [facility] Comment on above: Performed By: #### M G, PTT, PT, CBC, BMP #### [address] Monocytes (Bld) [#/Vol] 0.6 10*3/uL Normal 0.0-0.8 [facility] Comment on above: Performed By: #### M G, PTT, PT, CBC, BMP #### [address] Monocytes/100 WBC (Bld) 9.6 % Normal . [facility] Comment on above: Performed By: #### M G, PTT, PT, CBC, BMP #### [address] Neutrophils (Bld) [#/Vol] 3.3 10*3/uL Normal 1.8-7.7 [facility] Comment on above: Performed By: #### M G, PTT, PT, CBC, BMP #### [address] Neutrophils/100 WBC (Bld) 55.7 % Normal . [facility] Comment on above: Performed By: #### M G, PTT, PT, CBC, BMP #### [address] NRBC% 0.1 /100{WBC} Normal 0-0.5 [facility] Comment on above: Performed By: #### M G, PTT, PT, CBC, BMP #### [address] Platelet mean volume (Bld) [Entitic vol] 7.1 fL Normal 6.6-10.1 [facility] Comment on above: Performed By: #### M G, PTT, PT, CBC, BMP #### [facility] [address] Platelets (Bld) [#/Vol] 168 10*3/uL Normal 150-450 [facility] Comment on above: Performed By: #### M G, PTT, PT, CBC, BMP #### [facility] [address] RBC (Bld) [#/Vol] 4.52 10*6/uL Normal 3.90-5.60 [facility] Comment on above: Performed By: #### M G, PTT, PT, CBC, BMP #### [facility] [address] [place] [id number] [facility] WBC (Bld) [#/Vol] 5.9 10*3/uL Normal 4.1-10.5 [facility] Comment on above: Performed By: #### M G, PTT, PT, CBC, BMP #### [facility] [address] ECG 12 lead ECGon 12-30-2022 ECG 12 lead ECG [facility] [place] [place] [address] Electrocardiograph Report Signed Patient: Emmanuel Jiménez MR#: [id number] [birth year] : 1940 Acct:[id number] Age/Sex: 82 / M ADM Date: 12/28/22 Loc: Room: [address] [place] [address] Type: ADM IN Attending Dr: Katie Osborne [...] change was found Confirmed by KEVIN STALEY [facility], STEPHANIE ([id number]) on 12/30/2022 4:39:33 PM Referred By: Electronically Signed By:STEPHANIE STEWARD MD [facility] Transcribed By: MUS Signed By Stephanie Steward MD, [facility] 12/30/22 1639 Normal [facility] Glucose Glucometer (BldC) [M ass/Vol]Ordered By: Katie Osborne on 12-30-2022 Glucose [Mass/Vol] 183 mg/dL [facility] Comment on above: Random Glucose Refer ence Range is dependent on time and content of last meal. Glucose of more than 200 mg/dL in a nonstressed, ambulatory subject supports the diagnosis of Diabetes Mellitus. Glucose Poct Glucometerson 1 Glucose [Mass/Vol] 183 mg/dL Normal [facility] Comment on above: Result Comment: [place] Glucose Reference Range is dependent on time and content of last meal. Glucose of more than 200 mg/dL in a nonstressed, ambulatory subject supports the diagnosis of Diabetes Mellitus. PERFORMED BY: [facility] [address] [facility] [place] [address] PATHOLOGIST MOLDING MANAGER GENNY MCMULLEN M.D. Performed By: #### G LULS ####Point of Care testing, Glucose [Mass/Vol] 206 mg/dL Normal [facility] Comment on above: Result Comment: [place] Glucose Reference Range is dependent on time and content of last meal. Glucose of more than 200 mg/dL in a nonstressed, ambulatory subject supports the diagnosis of Diabetes Mellitus. PERFORMED BY: [facility] [address] [place] [address] PATHOLOGIST MOLDING MANAGER GENNY MCMULLEN M.D. Performed By: #### G LULS #### Point of Care testing , INR in Platelet poor plasma by Coagulation assayOrdered By: Henrry Issa on 12-30-2022 INR Coag (PPP) [Relative time] 1.1 {INR} Normal [facility] Comment on above: INR Therapeutic Rang [...] M G, PTT, PT, CBC, BMP #### [place] [id number] [facility] Magnesiumon 12-30-2022 Magnesium [Mass/Vol] 2.2 mg/dL Normal 1.9-2.7 [facility] Comment on above: Result Comment: PERF ORMED BY: [place] [address] PATHOLOGIST MOLDING MANAGER GENNY MCMULLEN M.D. Performed By: #### M G, PTT, PT, CBC, BMP #### [place] [id number] [facility] Partial Thromboplastin Timeo n 12-30-2022 aPTT Coag (Bld) [Time] 30.2 s Normal 25.1-36.5 [facility] Comment on above: Result Comment: A he matocrit value greater than 55% may lead to inaccurate results in coagulation testing. Patients having hematocrit values >55% require a special collection tube for coagulation studies. Please contact the laboratory at [phone] for redraw instructions. PERFORMED BY: [place] [address] PATHOLOGIST MOLDING MANAGER GENNY MCMULLEN M.D. Performed By: #### M G, PTT, PT, CBC, BMP #### [address] [address] [facility] Prothrombin time (PT)Ordered By: Henrry Issa on 12-30-2022 PT Coag (PPP) [Time] 13.1 s High 9.0-12.9 [facility] Comment on above: A hematocrit value g reater than 55% may lead to inaccurate results in coagulation testing. Patients having hematocrit values >55% require a special collection tube for coagulation studies. Please contact the laboratory at [phone] for redraw instructions. Result Comment: A he matocrit value greater than 55% may lead to inaccurate results in coagulation testing. Patients having hematocrit values >55% require a special collection tube for coagulation studies. Please contact the laboratory at [phone] for redraw instructions. Performed By: #### M G, PTT, PT, CBC, BMP #### [place] [id number] [facility] XR chest 1V portableon 12-30 XR chest 1V portable [facility] Main [place] [address] [place] [address] XRay Report Signed Patient: Emmanuel Jiménez MR#: [id number] 48 : 1940 Acct:[id number] Age/Sex: 82 / M ADM Date: 12/28/22 Loc: Room: [address] [place] [address] Type: ADM IN Attending Dr: Katie Osborne [...] Nick Jr., D.O.12/30/2022 3:49 PM Dictation Location: [place] [address] Transcribed By: [facility] 12/30/22 1549 Dictated By: Salvador Ncik Jr DO 12/30/22 1548 Signed By: 12/30/22 1549 Normal [facility] Basic Metabolic Panelon 12-02 Anion gap [Moles/Vol] 11.8 mmol/L Normal 6.0-15.0 [facility] Comment on above: Performed By: #### L IPID, BMP, MG, CBC ####[address] Calcium [Mass/Vol] 9.4 mg/dL Normal 8.6-10.3 [facility] Comment on above: Performed By: #### L IPID, BMP, MG, CBC ####[address] Chloride [Moles/Vol] 107 mmol/L Normal 98-107 [facility] Comment on above: Performed By: #### L IPID, BMP, MG, CBC ####[address] CO2 [Moles/Vol] 23.9 mmol/L Normal 21.0-31.0 [facility] Comment on above: Performed By: #### L IPID, BMP, MG, CBC ####[address] Creatinine [Mass/Vol] 1.40 mg/dL High 0.70-1.30 [facility] Comment on above: Performed By: #### L IPID, BMP, MG, CBC ####[address] Creatinine Clr Calc Pharmacy 42.38 Normal [facility] Comment on above: Performed By: #### L IPID, BMP, MG, CBC ####[place] [id number] [place] GFR/1.73 sq M.predicted MDRD (S/P/Bld) [Vol rate/Area] 49.870 mL/min/{1.73_m2} Normal [facility] Comment on above: Performed By: #### L IPID, BMP, MG, CBC ####[place] [id number] [place] Glucose [Mass/Vol] 185 mg/dL High 70-100 [facility] Comment on above: Result Comment: [place] Glucose Reference Range is dependent on time and content of last meal. Glucose of more than 200 mg/dL in a nonstressed, ambulatory subject supports the diagnosis of Diabetes Mellitus. ADA recommended reference range Performed By: #### L IPID, BMP, MG, CBC ####[facility] [id number] Potassium [Moles/Vol] 4.7 mmol/L Normal 3.5-5.1 [facility] Comment on above: Performed By: #### L IPID, BMP, MG, CBC ####[place] [id number] [address] Sodium [Moles/Vol] 138 mmol/L Normal 136-145 [facility] Comment on above: Performed By: #### L IPID, BMP, MG, CBC ####[place] [address] [address] Urea nitrogen [Mass/Vol] 27 mg/dL High 7-25 [facility] Comment on above: Performed By: #### L IPID, BMP, MG, CBC ####[place] [id number] [address] Cholesterol [Mass/volume] in Serum or PlasmaOrdered By: Jarred Cline on 12-29-2022 Cholesterol [Mass/Vol] 96 mg/dL 140-200 [facility] Comment on above: Chol less than 200 m g/dl low riskChol 201-239 mg/dl borderline riskChol 240 mg/dl and greater high risk Cholesterol in LDL Calc [Mas s/Vol]Ordered By: Jarred Cline on 12-29-2022 Cholesterol in LDL [Mass/Vol] 40 mg/dL 0-100 [facility] Comment on above: LDL ATP III CLASSIFI CATIONLDL less than 100 mg/dL OptimalLDL 100-129 mg/dL Near or above optimalLDL 130-159 mg/dL Borderline highLDL 160-189 mg/dL HighLDL greater than 189 mg/dL Very high Cholesterol in VLDL Calc [Ma ss/Vol]Ordered By: Jarred Cline on 12-29-2022 Cholesterol in VLDL [Mass/Vol] 26 mg/dL [facility] Complete Blood Count Auto Di ffon 12-29-2022 Basophils (Bld) [#/Vol] 0.1 10*3/uL Normal 0.0-0.2 [facility] Comment on above: Result Comment: PERF ORMED BY: [facility] [address] [place] [address] PATHOLOGIST MOLDING MANAGER GENNY MCMULLEN M.D. Performed By: #### L IPID, BMP, MG, CBC ####[address] Basophils/100 WBC (Bld) 0.8 % Normal . [facility] Comment on above: Performed By: #### L IPID, BMP, MG, CBC ####[address] Eosinophils (Bld) [#/Vol] 0.1 10*3/uL Normal 0.0-0.45 [facility] Comment on above: Performed By: #### L IPID, BMP, MG, CBC ####[address] Eosinophils/100 WBC (Bld) 1.4 % Normal . [facility] Comment on above: Performed By: #### L IPID, BMP, MG, CBC ####[address] Erythrocyte distribution width (RBC) [Ratio] 15.0 % High 12.0-14.8 [facility] Comment on above: Performed By: #### L IPID, BMP, MG, CBC ####[address] Hematocrit (Bld) [Volume fraction] 41.4 % Normal 38.8-50.0 [facility] Comment on above: Performed By: #### L IPID, BMP, MG, CBC ####[address] Hemoglobin (Bld) [Mass/Vol] 13.7 g/dL Normal 13.0-17.0 [facility] Comment on above: Performed By: #### L IPID, BMP, MG, CBC ####[address] Lymphocytes (Bld) [#/Vol] 3.1 10*3/uL Normal 1.00-4.8 [facility] Comment on above: Performed By: #### L IPID, BMP, MG, CBC ####[address] Lymphocytes/100 WBC (Bld) 41.3 % Normal . [facility] Comment on above: Performed By: #### L IPID, BMP, MG, CBC ####[address] MCH (RBC) [Entitic mass] 30.5 pg Normal 27.5-35.2 [facility] Comment on above: Performed By: #### L IPID, BMP, MG, CBC ####[address] MCV (RBC) [Entitic vol] 91.9 fL Normal 83.5-101 [facility] Comment on above: Performed By: #### L IPID, BMP, MG, CBC ####[address] Mean Corpuscular HGB Conc 33.1 g/dL Normal 32.5-35.6 [facility] Comment on above: Performed By: #### L IPID, BMP, MG, CBC ####[address] Monocytes (Bld) [#/Vol] 0.6 10*3/uL Normal 0.0-0.8 [facility] Comment on above: Performed By: #### L IPID, BMP, MG, CBC ####[address] Monocytes/100 WBC (Bld) 8.4 % Normal . [facility] Comment on above: Performed By: #### L IPID, BMP, MG, CBC ####[address] Neutrophils (Bld) [#/Vol] 3.6 10*3/uL Normal 1.8-7.7 [facility] Comment on above: Performed By: #### L IPID, BMP, MG, CBC ####[address] Neutrophils/100 WBC (Bld) 48.1 % Normal . [facility] Comment on above: Performed By: #### L IPID, BMP, MG, CBC ####[address] NRBC% 0.1 /100{WBC} Normal 0-0.5 [facility] Comment on above: Performed By: #### L IPID, BMP, MG, CBC ####[address] Platelet mean volume (Bld) [Entitic vol] 7.2 fL Normal 6.6-10.1 [facility] Comment on above: Performed By: #### L IPID, BMP, MG, CBC ####[address] Platelets (Bld) [#/Vol] 168 10*3/uL Normal 150-450 [facility] Comment on above: Performed By: #### L IPID, BMP, MG, CBC ####[address] RBC (Bld) [#/Vol] 4.50 10*6/uL Normal 3.90-5.60 [facility] Comment on above: Performed By: #### L IPID, BMP, MG, CBC ####[address] WBC (Bld) [#/Vol] 7.5 10*3/uL Normal 4.1-10.5 [facility] Comment on above: Performed By: #### L IPID, BMP, MG, CBC ####[address] [place] [address] [facility] echo transthoracicon [facility] echo transthoracic [facility] Main [place] [address] [place] [address] Echocardiogram Signed Patient: Emmanuel Jiménez MR#: [id number] 48 : 1940 Acct:[id number] Age/Sex: 82 / M ADM Date: 12/28/22 Loc: Room: [address] [place] [address] Type: ADM IN Attending Dr: Katie Osborne MD Ordering Provider: Haylee Benedict MD Date of Service: 12/29/22 [facility] echo transthoracic: High grade AV block Copies [...] 60.8 ml 12.0 cm2 EDV(MOD-sp4): RV S Jp: ESV(Teich): 27.2 ml 52.0 ml 13.6 cm/sec [...] By: Haylee Benedict MD 12/29/22 1651 Normal [facility] Glucose Poct Glucometerson 1 Glucose [Mass/Vol] 177 mg/dL Normal [facility] Comment on above: Result Comment: [place] Glucose Reference Range is dependent on time and content of last meal. Glucose of more than 200 mg/dL in a nonstressed, ambulatory subject supports the diagnosis of Diabetes Mellitus. PERFORMED BY: [facility] [address] [place] [address] PATHOLOGIST MOLDING MANAGER GENNY MCMULLEN M.D. Performed By: #### G LULS #### Point of Care testing , Lipid Panelon 12-29-2022 Cholesterol [Mass/Vol] 96 mg/dL Low 140-200 [facility] Comment on above: Result Comment: Chol less than 200 mg/dl low risk Chol 201-239 mg/dl borderline risk Chol 240 mg/dl and greater high risk Performed By: #### L IPID, BMP, MG, CBC ####[place] [address] [place] [address] [facility] Cholesterol in HDL [Mass/Vol] 30 mg/dL Normal 23-92 [facility] Comment on above: Result Comment: HDL CHOL ATP-III CLASSIFICATION Cardiovascular Risk HDL > or equal to 60 mg/dL LOW HDL < 40 mg/dL HIGH Performed By: #### L IPID, BMP, MG, CBC ####[facility] [id number] [place] [address] [facility] Cholesterol.total/Chol esterol in HDL [Mass ratio] 3.2 {ratio} Normal <5.0 [facility] Comment on above: Result Comment: PERF ORMED BY: [facility] [address] [place] [address] PATHOLOGIST MOLDING MANAGER GENNY MCMULLEN M.D. Performed By: #### L IPID, BMP, MG, CBC ####[address] LDL Cholesterol,Calculated 40 mg/dL Normal 0-100 [facility] Comment on above: Result Comment: LDL ATP III CLASSIFICATION LDL less than 100 mg/dL Optimal LDL 100-129 mg/dL Near or above optimal LDL 130-159 mg/dL Borderline high LDL 160-189 mg/dL High LDL greater than 189 mg/dL Very high Performed By: #### L IPID, BMP, MG, CBC ####[place] [id number] [address] Triglyceride w/Reflex 132 mg/dL Normal 0-149 [facility] Comment on above: Result Comment: TRIG ATP III CLASSIFICATION TRIG less than 150 mg/dL Normal TRIG 150-199 mg/dL Borderline high TRIG 200-500 mg/dL High TRIG greater than 500 mg/dL Very high Standard traceable to the Center for Disease Conrtrol and Prevention (CDC) test method. Performed By: #### L IPID, BMP, MG, CBC ####[place] [id number] [address] VLDL CHOLESTEROL 26 mg/dL Normal [facility] Comment on above: Performed By: #### L IPID, BMP, MG, CBC ####[place] [id number] [address] Magnesiumon 12-29-2022 Magnesium [Mass/Vol] 2.3 mg/dL Normal 1.9-2.7 [facility] Comment on above: Performed By: #### L IPID, BMP, MG, CBC ####[address] Serum or plasma high density lipoprotein (HDL) cholesterol measurementOrdered By: Jarred Cline on 12-29-2022 Cholesterol in HDL [Mass/Vol] 30 mg/dL 23-92 [facility] Comment on above: HDL CHOL ATP-III CLA SSIFICATION Cardiovascular RiskHDL > or equal to 60 mg/dL LOWHDL < 40 mg/dL HIGH Serum or plasma total choles terol/high density lipoprotein (HDL) cholesterol mass ratOrdered By: Jarred Cline on 12-29-2022 Cholesterol.total/Chol esterol in HDL [Mass ratio] 3.2 {ratio} <5.0 [facility] Triglyceride [Mass/volume] i n Serum or PlasmaOrdered By: Jarred Cline on 12-29-2022 Triglyceride [Mass/Vol] 132 mg/dL 0-149 [facility] Comment on above: TRIG ATP III CLASSIF ICATIONTRIG less than 150 mg/dL NormalTRIG 150-199 mg/dL Borderline highTRIG 200-500 mg/dL High TRIG greater than 500 mg/dL Very highStandard traceable to the Center for Disease Conrtrol and Prevention (CDC) test method. A1C with Estimated Average Sharonda capps 12-28-2022 Glucose [Mass/Vol] 212 mg/dL Normal [facility] Comment on above: Result Comment: PERF ORMED BY: [facility] [address] [facility] [place] [address] PATHOLOGIST MOLDING MANAGER GENNY MCMULLEN M.D. Performed By: #### M Sharonda BMP, A1C WT eA ####[place] [id number] [facility] HbA1c (Bld) [Mass fraction] 9.0 % High 4.3-5.6 [facility] Comment on above: Result Comment: Incr eased risk for diabetes: 5.7 - 6.4 diabetes: >6.4 glycemic control for adults with diabetes: <7.0 Performed By: #### Mickey Mcdonough BMP, A1C WT eA ####[place] [id number] [facility] Basic Metabolic Panelon 10-2 Anion gap [Moles/Vol] 12.3 mmol/L Normal 6.0-15.0 [facility] Comment on above: Order Comment: Comme nt add Performed By: #### M Sharonda, BMP, A1C WT eA ####[place] [id number] [facility] Calcium [Mass/Vol] 9.0 mg/dL Normal 8.6-10.3 [facility] Comment on above: Order Comment: Comme nt add Performed By: #### M Sharonda, BMP, A1C WTH eA ####[place] [id number] [place] [id number] [facility] Chloride [Moles/Vol] 107 mmol/L Normal 98-107 [facility] Comment on above: Order Comment: Comme nt add Performed By: #### M G, BMP, A1C WTH eA ####[place] [id number] [place] [id number] [facility] CO2 [Moles/Vol] 23.3 mmol/L Normal 21.0-31.0 [facility] Comment on above: Order Comment: Comme nt add Performed By: #### M G, BMP, A1C WTH eA ####[place] [id number] [facility] Creatinine [Mass/Vol] 1.40 mg/dL High 0.70-1.30 [facility] Comment on above: Order Comment: Comme nt add Performed By: #### Mickey G, BMP, A1C WTH eA ####[place] [id number] [facility] Creatinine Clr Calc Pharmacy 43.10 Normal [facility] Comment on above: Order Comment: Comme nt add Performed By: #### M Sharonda, BMP, A1C WT eA ####[place] [id number] [facility] GFR/1.73 sq M.predicted MDRD (S/P/Bld) [Vol rate/Area] 49.870 mL/min/{1.73_m2} Normal [facility] Comment on above: Order Comment: Comme nt add Performed By: #### M G, BMP, A1C WTH eA ####[place] [id number] [facility] Glucose [Mass/Vol] 183 mg/dL High 70-100 [facility] Comment on above: Order Comment: Comme nt add Result Comment: Amalia om Glucose Reference Range is dependent on time and content of last meal. Glucose of more than 200 mg/dL in a nonstressed, ambulatory subject supports the diagnosis of Diabetes Mellitus. ADA recommended reference range Performed By: #### M G, BMP, A1C WTH eA ####[facility] [place] [address] [facility] Potassium [Moles/Vol] 4.6 mmol/L Normal 3.5-5.1 [facility] Comment on above: Order Comment: Comme nt add Performed By: #### M G, BMP, A1C WT eA ####[place] [id number] [place] [address] [facility] Sodium [Moles/Vol] 138 mmol/L Normal 136-145 [facility] Comment on above: Order Comment: Comme nt add Performed By: #### M G, BMP, A1C WT eA ####[place] [id number] [place] [address] [facility] Urea nitrogen [Mass/Vol] 26 mg/dL High 7-25 [facility] Comment on above: Order Comment: Comme nt add Performed By: #### M G, BMP, [facility] WT eA ####[place] [id number] [place] [address] [facility] ECG 12 lead ECGon 12-28-2022 ECG 12 lead ECG [facility] [place] [address] Electrocardiograph Report Signed Patient: Emmanuel Jiménez MR#: [id number] : 1940 Acct:[id number] Age/Sex: 82 / M ADM Date: 12/28/22 Loc: Room: [address] [place] [address] Type: ADM IN Attending Dr: Jarred Cline [...] Signed By Suzanne Cordero DO 12/28 Normal [facility] Glucose mean value [Mass/vol ume] in Blood Estimated from glycated hemoglobinOrdered By: Jarred Cline on 12-28-2022 Average glucose Estimated from glycated hemoglobin (Bld) [Mass/Vol] 212 mg/dL [facility] Hemoglobin A1c percentageOrd ered By: Jarred Cline on 12-28-2022 HbA1c (Bld) [Mass fraction] 9.0 % 4.3-5.6 [facility] Comment on above: Increased risk for d iabetes: 5.7 - 6.4diabetes: >6.4glycemic control for adults with diabetes: <7.0 Magnesiumon 12-28-2022 Magnesium [Mass/Vol] 2.2 mg/dL Normal 1.9-2.7 [facility] Comment on above: Order Comment: Comme nt add Result Comment: PERF ORMED BY: [facility] [address] [place] [address] PATHOLOGIST MOLDING MANAGER GENNY MCMULLEN M.D. Performed By: #### M G, BMP, A1C W[facility] ####[facility] [id number] BNPon 05-19-2022 Natriuretic peptide B (Bld) [Mass/Vol] 74.0 pg/mL Normal <=1,800.0 [facility] Comment on above: Performed By: #### E LEC, BUN, BNP, LIVER, CREA #### [facility] [address] [address] [address] Brissa Ma BUNon 05-19-2022 Urea nitrogen [Mass/Vol] 41.0 mg/dL Critically high 7.0-18.0 [facility] Comment on above: Performed By: #### E LEC, BUN, BNP, LIVER, CREA #### [facility] [address] [address] [address] Brissa Ma CBC AUTO DIFFon 05-19-2022 BASO # 0.1 103/ul Normal 0.0-0.1 [facility] Comment on above: Performed By: #### E LEC, BUN, BNP, LIVER, CREA #### [facility] [address] [place] [address] Dr. Brissa Ma Basophils/100 WBC (Bld) 0.8 % Normal 0.2-2.0 [facility] Comment on above: Performed By: #### E LEC, BUN, BNP, LIVER, CREA #### [facility] [address] [place] [address] Dr. Brissa Ma EO # 0.1 103/ul Normal 0.0-0.7 [facility] Comment on above: Performed By: #### E LEC, BUN, BNP, LIVER, CREA #### [facility] [address] [place] [address] Dr. Brissa Ma Eosinophils/100 WBC (Bld) 1.1 % Normal 0.9-7.0 [facility] Comment on above: Performed By: #### E LEC, BUN, BNP, LIVER, CREA #### [facility] [address] [place] [address] Dr. Brissa Ma Erythrocyte distribution width (RBC) [Ratio] 14.1 % Normal 11.0-15.0 [facility] Comment on above: Performed By: #### E LEC, BUN, BNP, LIVER, CREA #### [facility] [address] [place] [address] Dr. Brissa Ma Hematocrit (Bld) [Volume fraction] 47.8 % Normal 42.0-54.0 [facility] Comment on above: Performed By: #### E LEC, BUN, BNP, LIVER, CREA #### [facility] [address] [place] [address] Dr. Brissa Ma Hemoglobin (Bld) [Mass/Vol] 15.3 g/dL Normal 14.0-18.0 [facility] Comment on above: Performed By: #### E LEC, BUN, BNP, LIVER, CREA #### [facility] [address] [place] [address] Dr. Brissa Ma IG # 0.17 10e3/ul Critically high 0.00-0.03 [facility] Comment on above: Performed By: #### E LEC, BUN, BNP, LIVER, CREA #### [facility] [address] [place] [address] Dr. Brissa Ma IG % 1.7 % Critically high 0.0-0.5 [facility] Comment on above: Performed By: #### E LEC, BUN, BNP, LIVER, CREA #### [facility] [address] [place] [address] Dr. Brissa Ma LYMPH # 3.8 103/ul Normal 1.2-3.8 [facility] Comment on above: Performed By: #### E LEC, BUN, BNP, LIVER, CREA #### [facility] [address] [place] [address] Dr. Brissa Ma Lymphocytes/100 WBC (Bld) 38.4 % Normal 20.5-60.0 [facility] Comment on above: Performed By: #### E LEC, BUN, BNP, LIVER, CREA #### [facility] [address] [place] [address] Dr. Brissa Ma MANUAL DIFF REQ NO Normal [facility] Comment on above: Performed By: #### E LEC, BUN, BNP, LIVER, CREA #### [facility] [address] [place] [address] Dr. Brissa Ma MCH (RBC) [Entitic mass] 30.2 pg Normal 25.9-34.0 [facility] Comment on above: Performed By: #### E LEC, BUN, BNP, LIVER, CREA #### [facility] [address] [place] [address] Dr. Brissa Ma MCHC (RBC) [Mass/Vol] 32.0 g/dL Normal 29.9-35.2 [facility] Comment on above: Performed By: #### E LEC, BUN, BNP, LIVER, CREA #### [facility] [address] [place] [address] Dr. Brissa Ma MCV (RBC) [Entitic vol] 94.3 fL Critically high 80.0-94.0 [facility] Comment on above: Performed By: #### E LEC, BUN, BNP, LIVER, CREA #### [facility] [address] [place] [address] Dr. Brissa Ma MONO # 0.7 103/ul Normal 0.3-0.8 [facility] Comment on above: Performed By: #### E LEC, BUN, BNP, LIVER, CREA #### [facility] [address] [place] [address] Dr. Brissa Ma Monocytes/100 WBC (Bld) 7.4 % Normal 1.7-12.0 [facility] Comment on above: Performed By: #### E LEC, BUN, BNP, LIVER, CREA #### [facility] [address] [place] [address] Dr. Brissa Ma NEUT # 5.0 103/ul Normal 1.4-6.5 [facility] Comment on above: Performed By: #### E LEC, BUN, BNP, LIVER, CREA #### [facility] [address] [place] [address] Dr. Brissa Ma Neutrophils/100 WBC (Bld) 50.6 % Normal 43.0-75.0 [facility] Comment on above: Performed By: #### E LEC, BUN, BNP, LIVER, CREA #### [facility] [address] [place] [address] Dr. Brissa aM Platelet mean volume (Bld) [Entitic vol] 9.0 fL Critically low 9.5-13.5 [facility] Comment on above: Performed By: #### E LEC, BUN, BNP, LIVER, CREA #### [facility] [address] [place] [address] Dr. Brissa Ma PLT 205 103/ul Normal 150-450 [facility] Comment on above: Performed By: #### E LEC, BUN, BNP, LIVER, CREA #### [facility] [address] [place] [address] Dr. Brissa Ma RBC 5.07 106/ul Normal 4.70-6.10 [facility] Comment on above: Performed By: #### E LEC, BUN, BNP, LIVER, CREA #### [facility] [address] [place] [address] Dr. Brissa Ma WBC 9.9 103/ul Normal 4.0-11.0 [facility] Comment on above: Performed By: #### E LEC, BUN, BNP, LIVER, CREA #### [facility] [address] [place] [address] Dr. Brissa Ma CREATININEon 05-19-2022 Creatinine [Mass/Vol] 1.60 mg/dL Critically high 0.70-1.30 [facility] Comment on above: Performed By: #### E LEC, BUN, BNP, LIVER, CREA #### [facility] [address] [place] [address] Dr. Brissa Ma EGFR-AF CHINESE 50 mL/min/1.73m2 Critically low >=60 [facility] Comment on above: Performed By: #### E LEC, BUN, BNP, LIVER, CREA #### [facility] [address] [place] [address] Dr. Brissa Ma EGFR-NON AF CHINESE 42 mL/min/1.73m2 Critically low >=60 [facility] Comment on above: Performed By: #### E LEC, BUN, BNP, LIVER, CREA #### [facility] [address] [place] [address] Dr. Brissa Ma ELECTROLYTESon 05-19-2022 Anion gap [Moles/Vol] 15.5 mmol/L Normal [facility] Comment on above: Performed By: #### E LEC, BUN, BNP, LIVER, CREA #### [facility] [address] [place] [address] Dr. Brissa Ma Chloride [Moles/Vol] 102 mmol/L Normal 98-107 [facility] Comment on above: Performed By: #### E LEC, BUN, BNP, LIVER, CREA #### [facility] [address] [place] [address] Dr. Brissa Ma CO2 [Moles/Vol] 25.5 mmol/L Normal 21.0-32.0 [facility] Comment on above: Performed By: #### E LEC, BUN, BNP, LIVER, CREA #### [facility] [address] [place] [address] Dr. Brissa Ma Potassium [Moles/Vol] 5.0 mmol/L Normal 3.5-5.1 [facility] Comment on above: Performed By: #### E LEC, BUN, BNP, LIVER, CREA #### [facility] [address] [place] [address] Dr. Brissa Ma Sodium [Moles/Vol] 138 mmol/L Normal 136-145 [facility] Comment on above: Performed By: #### E LEC, BUN, BNP, LIVER, CREA #### [facility] [address] [place] [address] Dr. Brissa Ma GLYCOHEMOGLOBIN A1Con 2022 ADA RECOMMENDATION SEE BELOW Normal [facility] Comment on above: Result Comment: ADA RECOMMENDED LIMIT 4.0 - 6.0 ADA THERAPEUTIC TARGET < 7.0 ACTION SUGGESTED > 7.0 Performed By: #### A 1C #### [facility] [address] [place] [address] Dr. Brissa Ma Glucose [Mass/Vol] 203 mg/dL Normal [facility] Comment on above: Performed By: #### A 1C #### [facility] [address] [place] [address] Dr. Brissa Ma HbA1c (Bld) [Mass fraction] 8.7 % Critically high 4.5-6.2 [facility] Comment on above: Performed By: #### A 1C #### [facility] [address] [place] [address] Dr. Brissa Ma LIVER PROFILEon 05-19-2022 Albumin [Mass/Vol] 3.7 g/dL Normal 3.4-5.0 [facility] Comment on above: Performed By: #### E LEC, BUN, BNP, LIVER, CREA #### [facility] [address] [place] [address] Dr. Brissa Ma Albumin/Globulin [Mass ratio] 1.0 {ratio} Normal [facility] Comment on above: Performed By: #### E LEC, BUN, BNP, LIVER, CREA #### [facility] [address] [place] [address] Dr. Brissa Ma ALP [Catalytic activity/Vol] 80 U/L Normal 46-116 [facility] Comment on above: Performed By: #### E LEC, BUN, BNP, LIVER, CREA #### [facility] [address] [place] [address] Dr. Brissa Ma ALT [Catalytic activity/Vol] 16 U/L Normal 16-63 [facility] Comment on above: Performed By: #### E LEC, BUN, BNP, LIVER, CREA #### [facility] [address] [place] [address] Dr. Brissa Ma AST [Catalytic activity/Vol] 18 U/L Normal 15-37 [facility] Comment on above: Performed By: #### E LEC, BUN, BNP, LIVER, CREA #### [facility] [address] [place] [address] Dr. Brissa Ma BILI, CONJUGATED 0.1 mg/dL Normal 0.0-0.2 [facility] Comment on above: Performed By: #### E LEC, BUN, BNP, LIVER, CREA #### [facility] [address] [place] [address] Dr. Brissa Ma Bilirubin [Mass/Vol] 0.7 mg/dL Normal 0.2-1.0 [facility] Comment on above: Performed By: #### E LEC, BUN, BNP, LIVER, CREA #### [facility] [address] [place] [address] Dr. Brissa Ma Globulin (S) [Mass/Vol] 3.8 g/dL Normal [facility] Comment on above: Performed By: #### E LEC, BUN, BNP, LIVER, CREA #### [facility] [address] [place] [address] Dr. Brissa Ma Protein [Mass/Vol] 7.5 g/dL Normal 6.4-8.2 [facility] Comment on above: Performed By: #### E LEC, BUN, BNP, LIVER, CREA #### [facility] [address] [place] [address] Dr. Brissa Ma BNPon 01-22-2022 Natriuretic peptide B (Bld) [Mass/Vol] 150.0 pg/mL Normal <=1,800.0 [facility] Comment on above: Performed By: #### E LEC, BUN, BNP, LIVER, CREA #### [facility] [address] [place] [address] Dr. Brissa Ma BUNon 01-22-2022 Urea nitrogen [Mass/Vol] 22.0 mg/dL Critically high 7.0-18.0 [facility] Comment on above: Performed By: #### E LEC, BUN, BNP, LIVER, CREA #### [facility] [address] [place] [address] Dr. Brissa Ma CBC AUTO DIFFon 01-22-2022 BASO # 0.0 103/ul Normal 0.0-0.1 [facility] Comment on above: Performed By: #### E LEC, BUN, BNP, LIVER, CREA #### [facility] [address] [place] [address] Dr. Brissa Ma Basophils/100 WBC (Bld) 0.5 % Normal 0.2-2.0 [facility] Comment on above: Performed By: #### E LEC, BUN, BNP, LIVER, CREA #### [facility] [address] [place] [address] Dr. Brissa Ma EO # 0.1 103/ul Normal 0.0-0.7 [facility] Comment on above: Performed By: #### E LEC, BUN, BNP, LIVER, CREA #### [facility] [address] [place] [address] Dr. Brissa Ma Eosinophils/100 WBC (Bld) 1.9 % Normal 0.9-7.0 [facility] Comment on above: Performed By: #### E LEC, BUN, BNP, LIVER, CREA #### [facility] [address] [place] [address] Dr. Brissa Ma Erythrocyte distribution width (RBC) [Ratio] 14.1 % Normal 11.0-15.0 [facility] Comment on above: Performed By: #### E LEC, BUN, BNP, LIVER, CREA #### [facility] [address] [place] [address] Dr. Brissa Ma Hematocrit (Bld) [Volume fraction] 43.1 % Normal 42.0-54.0 [facility] Comment on above: Performed By: #### E LEC, BUN, BNP, LIVER, CREA #### [facility] [address] [place] [address] Dr. Brissa Ma Hemoglobin (Bld) [Mass/Vol] 13.7 g/dL Critically low 14.0-18.0 [facility] Comment on above: Performed By: #### E LEC, BUN, BNP, LIVER, CREA #### [facility] [address] [place] [address] Dr. Brissa Ma IG # 0.05 10e3/ul Critically high 0.00-0.03 [facility] Comment on above: Performed By: #### E LEC, BUN, BNP, LIVER, CREA #### [facility] [address] [place] [address] Dr. Brissa Ma IG % 0.8 % Critically high 0.0-0.5 [facility] Comment on above: Performed By: #### E LEC, BUN, BNP, LIVER, CREA #### [facility] [address] [place] [address] Dr. Brissa Ma LYMPH # 2.7 103/ul Normal 1.2-3.8 [facility] Comment on above: Performed By: #### E LEC, BUN, BNP, LIVER, CREA #### [facility] [address] [place] [address] Dr. Brissa Ma Lymphocytes/100 WBC (Bld) 42.1 % Normal 20.5-60.0 [facility] Comment on above: Performed By: #### E LEC, BUN, BNP, LIVER, CREA #### [facility] [address] [place] [address] Dr. Brissa Ma MANUAL DIFF REQ NO Normal [facility] Comment on above: Performed By: #### E LEC, BUN, BNP, LIVER, CREA #### [facility] [address] [place] [address] Dr. Brissa Ma MCH (RBC) [Entitic mass] 29.8 pg Normal 25.9-34.0 [facility] Comment on above: Performed By: #### E LEC, BUN, BNP, LIVER, CREA #### [facility] [address] [place] [address] Dr. Brissa Ma MCHC (RBC) [Mass/Vol] 31.8 g/dL Normal 29.9-35.2 [facility] Comment on above: Performed By: #### E LEC, BUN, BNP, LIVER, CREA #### [facility] [address] [place] [address] Dr. Brissa Ma MCV (RBC) [Entitic vol] 93.9 fL Normal 80.0-94.0 [facility] Comment on above: Performed By: #### E LEC, BUN, BNP, LIVER, CREA #### [facility] [address] [place] [address] Dr. Brissa Ma MONO # 0.5 103/ul Normal 0.3-0.8 [facility] Comment on above: Performed By: #### E LEC, BUN, BNP, LIVER, CREA #### [facility] [address] [place] [address] Dr. Brissa Ma Monocytes/100 WBC (Bld) 7.8 % Normal 1.7-12.0 [facility] Comment on above: Performed By: #### E LEC, BUN, BNP, LIVER, CREA #### [facility] [address] [place] [address] Dr. Brissa Ma NEUT # 3.0 103/ul Normal 1.4-6.5 [facility] Comment on above: Performed By: #### E LEC, BUN, BNP, LIVER, CREA #### [facility] [address] [place] [address] Dr. Brissa Ma Neutrophils/100 WBC (Bld) 46.9 % Normal 43.0-75.0 [facility] Comment on above: Performed By: #### E LEC, BUN, BNP, LIVER, CREA #### [facility] [address] [place] [address] Dr. Brissa Ma Platelet mean volume (Bld) [Entitic vol] 9.2 fL Critically low 9.5-13.5 [facility] Comment on above: Performed By: #### E LEC, BUN, BNP, LIVER, CREA #### [facility] [address] [place] [address] Dr. Brissa Ma PLT 163 103/ul Normal 150-450 [facility] Comment on above: Performed By: #### E LEC, BUN, BNP, LIVER, CREA #### [facility] [address] [place] [address] Dr. Brissa Ma RBC 4.59 106/ul Critically low 4.70-6.10 [facility] Comment on above: Performed By: #### E LEC, BUN, BNP, LIVER, CREA #### [facility] [address] [place] [address] Dr. Brissa Ma WBC 6.4 103/ul Normal 4.0-11.0 [facility] Comment on above: Performed By: #### E LEC, BUN, BNP, LIVER, CREA #### [facility] [address] [place] [address] Dr. Brissa Ma CREATININEon 01-22-2022 Creatinine [Mass/Vol] 1.47 mg/dL Critically high 0.70-1.30 [facility] Comment on above: Performed By: #### E LEC, BUN, BNP, LIVER, CREA #### [facility] [address] [place] [address] Dr. Brissa Ma EGFR-AF CHINESE 56 mL/min/1.73m2 Critically low >=60 [facility] Comment on above: Performed By: #### E LEC, BUN, BNP, LIVER, CREA #### [facility] [address] [place] [address] Dr. Brissa Ma EGFR-NON AF CHINESE 46 mL/min/1.73m2 Critically low >=60 [facility] Comment on above: Performed By: #### E LEC, BUN, BNP, LIVER, CREA #### [facility] [address] [place] [address] Dr. Brissa Ma ELECTROLYTESon 01-22-2022 Anion gap [Moles/Vol] 10.1 mmol/L Normal Th [facility] Comment on above: Performed By: #### E LEC, BUN, BNP, LIVER, CREA #### [facility] [address] [place] [address] Dr. Brissa Ma Chloride [Moles/Vol] 106 mmol/L Normal 98-107 [facility] Comment on above: Performed By: #### E LEC, BUN, BNP, LIVER, CREA #### [facility] [address] [place] [address] Dr. Brissa Ma CO2 [Moles/Vol] 28.4 mmol/L Normal 21.0-32.0 [facility] Comment on above: Performed By: #### E LEC, BUN, BNP, LIVER, CREA #### [facility] [address] [place] [address] Dr. Brissa Ma Potassium [Moles/Vol] 4.5 mmol/L Normal 3.5-5.1 [facility] Comment on above: Performed By: #### E LEC, BUN, BNP, LIVER, CREA #### [facility] [address] [place] [address] Dr. Brissa Ma Sodium [Moles/Vol] 140 mmol/L Normal 136-145 [facility] Comment on above: Performed By: #### E LEC, BUN, BNP, LIVER, CREA #### [facility] [address] [place] [address] Dr. Brissa Ma GLYCOHEMOGLOBIN A1Con 2021 ADA RECOMMENDATION SEE BELOW Normal [facility] Comment on above: Result Comment: ADA RECOMMENDED LIMIT 4.0 - 6.0 ADA THERAPEUTIC TARGET < 7.0 ACTION SUGGESTED > 7.0 Performed By: #### A 1C #### [facility] [address] [place] [address] Dr. Brissa Ma Glucose [Mass/Vol] 223 mg/dL Normal [facility] Comment on above: Performed By: #### A 1C #### [facility] [address] [place] [address] Dr. Brissa Ma HbA1c (Bld) [Mass fraction] 9.4 % Critically high 4.5-6.2 [facility] Comment on above: Performed By: #### A 1C #### [facility] [address] [place] [address] Dr. Brissa Ma LIVER PROFILEon 01-22-2022 Albumin [Mass/Vol] 3.6 g/dL Normal 3.4-5.0 [facility] Comment on above: Performed By: #### E LEC, BUN, BNP, LIVER, CREA #### [facility] [address] [place] [address] Dr. Brissa Ma Albumin/Globulin [Mass ratio] 1.0 {ratio} Normal [facility] Comment on above: Performed By: #### E LEC, BUN, BNP, LIVER, CREA #### [facility] [address] [place] [address] Dr. Brissa Ma ALP [Catalytic activity/Vol] 86 U/L Normal 46-116 [facility] Comment on above: Performed By: #### E LEC, BUN, BNP, LIVER, CREA #### [facility] [address] [place] [address] Dr. Brissa Ma ALT [Catalytic activity/Vol] 18 U/L Normal 16-63 [facility] Comment on above: Performed By: #### E LEC, BUN, BNP, LIVER, CREA #### [facility] [address] [place] [address] Dr. Brissa Ma AST [Catalytic activity/Vol] 20 U/L Normal 15-37 [facility] Comment on above: Performed By: #### E LEC, BUN, BNP, LIVER, CREA #### [facility] [address] [place] [address] Dr. Brissa Ma BILI, CONJUGATED 0.1 mg/dL Normal 0.0-0.2 [facility] Comment on above: Performed By: #### E LEC, BUN, BNP, LIVER, CREA #### [facility] [address] [place] [address] Dr. Brissa Ma Bilirubin [Mass/Vol] 0.4 mg/dL Normal 0.2-1.0 [facility] Comment on above: Performed By: #### E LEC, BUN, BNP, LIVER, CREA #### [facility] [address] [place] [address] Dr. Brissa Ma Globulin (S) [Mass/Vol] 3.7 g/dL Normal [facility] Comment on above: Performed By: #### E LEC, BUN, BNP, LIVER, CREA #### [facility] [address] [place] [address] Dr. Brissa Ma Protein [Mass/Vol] 7.3 g/dL Normal 6.4-8.2 [facility] Comment on above: Performed By: #### E LEC, BUN, BNP, LIVER, CREA #### [facility] [address] [place] [address] Dr. Brissa Ma BUNon 10-08-2021 Urea nitrogen [Mass/Vol] 25.0 mg/dL Critically high 7.0-18.0 [facility] Comment on above: Performed By: #### E LEC, BUN, BNP, LIVER, CREA #### [facility] [address] [place] [address] Dr. Brissa Ma CBC AUTO DIFFon 10-08-2021 BASO # 0.1 103/ul Normal 0.0-0.1 [facility] Comment on above: Performed By: #### C BC #### [facility] [address] [place] [address] Dr. Brissa Ma Basophils/100 WBC (Bld) 0.7 % Normal 0.2-2.0 [facility] Comment on above: Performed By: #### C BC #### [facility] [address] [place] [address] Dr. Brissa Ma EO # 0.1 103/ul Normal 0.0-0.7 [facility] Comment on above: Performed By: #### C BC #### [facility] [address] [place] [address] Dr. Brissa Ma Eosinophils/100 WBC (Bld) 1.8 % Normal 0.9-7.0 [facility] Comment on above: Performed By: #### C BC #### [facility] [address] [place] [address] Dr. Brissa Ma Erythrocyte distribution width (RBC) [Ratio] 14.1 % Normal 11.0-15.0 [facility] Comment on above: Performed By: #### C BC #### [facility] [address] [place] [address] Dr. Brissa Ma Hematocrit (Bld) [Volume fraction] 41.9 % Critically low 42.0-54.0 [facility] Comment on above: Performed By: #### C BC #### [facility] [address] [place] [address] Dr. Brissa Ma Hemoglobin (Bld) [Mass/Vol] 13.3 g/dL Critically low 14.0-18.0 [facility] Comment on above: Performed By: #### C BC #### [facility] [address] [place] [address] Dr. Brissa Ma IG # 0.06 10e3/ul Critically high 0.00-0.03 [facility] Comment on above: Performed By: #### C BC #### [facility] [address] [place] [address] Dr. Brissa Ma IG % 0.9 % Critically high 0.0-0.5 [facility] Comment on above: Performed By: #### C BC #### [facility] [address] [place] [address] Dr. Brissa Ma LYMPH # 2.6 103/ul Normal 1.2-3.8 [facility] Comment on above: Performed By: #### C BC #### [facility] [address] [place] [address] Dr. Brissa Ma Lymphocytes/100 WBC (Bld) 37.8 % Normal 20.5-60.0 [facility] Comment on above: Performed By: #### C BC #### [facility] [address] [place] [address] Dr. Brissa Ma MANUAL DIFF REQ NO Normal [facility] Comment on above: Performed By: #### C BC #### [facility] [address] [place] [address] Dr. Brissa Ma MCH (RBC) [Entitic mass] 30.4 pg Normal 25.9-34.0 [facility] Comment on above: Performed By: #### C BC #### [facility] [address] [place] [address] Dr. Brissa Ma MCHC (RBC) [Mass/Vol] 31.7 g/dL Normal 29.9-35.2 [facility] Comment on above: Performed By: #### C BC #### [facility] [address] [place] [address] Dr. Brissa Ma MCV (RBC) [Entitic vol] 95.7 fL Critically high 80.0-94.0 [facility] Comment on above: Performed By: #### C BC #### [facility] [address] [place] [address] Dr. Brissa Ma MONO # 0.6 103/ul Normal 0.3-0.8 [facility] Comment on above: Performed By: #### C BC #### [facility] [address] [place] [address] Dr. Brissa Ma Monocytes/100 WBC (Bld) 8.4 % Normal 1.7-12.0 [facility] Comment on above: Performed By: #### C BC #### [facility] [address] [place] [address] Dr. Brissa Ma NEUT # 3.4 103/ul Normal 1.4-6.5 [facility] Comment on above: Performed By: #### C BC #### [facility] [address] [place] [address] Dr. Brissa Ma Neutrophils/100 WBC (Bld) 50.4 % Normal 43.0-75.0 [facility] Comment on above: Performed By: #### C BC #### [facility] [address] [place] [address] Dr. Brissa Ma Platelet mean volume (Bld) [Entitic vol] 9.2 fL Critically low 9.5-13.5 [facility] Comment on above: Performed By: #### C BC #### [facility] [address] [place] [address] Dr. Brissa Ma PLT 151 103/ul Normal 150-450 [facility] Comment on above: Performed By: #### C BC #### [facility] [address] [place] [address] Dr. Brissa Ma RBC 4.38 106/ul Critically low 4.70-6.10 [facility] Comment on above: Performed By: #### C BC #### [facility] [address] [place] [address] Dr. Brissa Ma WBC 6.8 103/ul Normal 4.0-11.0 [facility] Comment on above: Performed By: #### C BC #### [facility] [address] [place] [address] Dr. Brissa Ma CREATININEon 10-08-2021 Creatinine [Mass/Vol] 1.30 mg/dL Normal 0.70-1.30 [facility] Comment on above: Performed By: #### E LEC, BUN, BNP, LIVER, CREA #### [facility] [address] [place] [address] Dr. Brissa Ma EGFR-AF CHINESE >60 Normal >=60 [facility] Comment on above: Performed By: #### E LEC, BUN, BNP, LIVER, CREA #### [facility] [address] [place] [address] Dr. Brissa Ma EGFR-NON AF CHINESE 53 mL/min/1.73m2 Critically low >=60 [facility] Comment on above: Performed By: #### E LEC, BUN, BNP, LIVER, CREA #### [facility] [address] [place] [address] Dr. Brissa Ma ELECTROLYTESon 10-08-2021 Anion gap [Moles/Vol] 12.3 mmol/L Normal Th [facility] Comment on above: Performed By: #### E LEC, BUN, BNP, LIVER, CREA #### [facility] [address] [address] [address] Brissa Ma Chloride [Moles/Vol] 106 mmol/L Normal 98-107 [facility] Comment on above: Performed By: #### E LEC, BUN, BNP, LIVER, CREA #### [facility] [address] [place] [address] Dr. Brissa Ma CO2 [Moles/Vol] 24.3 mmol/L Normal 21.0-32.0 [facility] Comment on above: Performed By: #### E LEC, BUN, BNP, LIVER, CREA #### [facility] [address] [address] [address] Brissa Ma Potassium [Moles/Vol] 4.6 mmol/L Normal 3.5-5.1 [facility] Comment on above: Performed By: #### E LEC, BUN, BNP, LIVER, CREA #### [facility] [address] [place] [address] Dr. Brissa Ma Sodium [Moles/Vol] 138 mmol/L Normal 136-145 [facility] Comment on above: Performed By: #### E LEC, BUN, BNP, LIVER, CREA #### [facility] [address] [place] [address] Dr. Brissa Ma GLYCOHEMOGLOBIN A1Con 2021 ADA RECOMMENDATION SEE BELOW Normal [facility] Comment on above: Result Comment: ADA RECOMMENDED LIMIT 4.0 - 6.0 ADA THERAPEUTIC TARGET < 7.0 ACTION SUGGESTED > 7.0 Performed By: #### A 1C #### [facility] [address] [place] [address] Dr. Brissa Ma Glucose [Mass/Vol] 189 mg/dL Normal [facility] Comment on above: Performed By: #### A 1C #### [facility] [address] [place] [address] Dr. Brissa Ma HbA1c (Bld) [Mass fraction] 8.2 % Critically high 4.5-6.2 [facility] Comment on above: Performed By: #### A 1C #### [facility] [address] [place] [address] Dr. Brissa Ma LIPID PROFILEon 10-08-2021 CHOL-HDL RATIO NORM SEE BELOW Normal [facility] Comment on above: Result Comment: 3.3 - 4.4 LOW RISK 4.4 - 7.1 AVERAGE RISK 7.1 - 11.0 MODERATE RISK >11.0 HIGH RISK Performed By: #### C LEELEE, ELEC, LIPID, LIVER, BUN #### [facility] [address] [place] [address] Dr. Brissa Ma Cholesterol [Mass/Vol] 75 mg/dL Normal <=200 [facility] Comment on above: Performed By: #### C LEELEE, ELEC, LIPID, LIVER, BUN #### [facility] [address] [address] [address] Brissa Ma Cholesterol in HDL [Mass/Vol] 33 mg/dL Critically low 40-60 [facility] Comment on above: Performed By: #### C LEELEE, ELEC, LIPID, LIVER, BUN #### [facility] [address] [place] [address] Dr. Brissa Ma Cholesterol in LDL [Mass/Vol] 22.0 mg/dL Normal [facility] Comment on above: Performed By: #### C LEELEE, ELEC, LIPID, LIVER, BUN #### [facility] [address] [place] [address] Dr. Brissa Ma Cholesterol.total/Chol esterol in HDL [Mass ratio] 2.3 {ratio} Normal [facility] Comment on above: Performed By: #### C LEELEE, ELEC, LIPID, LIVER, BUN #### [facility] [address] [place] [address] Dr. Brissa Ma HDL NORMAL > or = 60 mg/dl - LO W CARDIOVASCULAR RISK <40 mg/dl - HIGH CARDIOVASCULAR RISK Normal [facility] Comment on above: Performed By: #### C LEELEE, ELEC, LIPID, LIVER, BUN #### [facility] [address] [place] [address] Dr. Brissa Ma LDL CALC NORMAL SEE BELOW Normal [facility] Comment on above: Result Comment: <100 mg/dl OPTIMAL 100 - 129 mg/dl NEAR OR ABOVE OPTIMAL 130 - 159 mg/dl BORDERLINE HIGH 160 - 189 mg/dl HIGH >190 mg/dl VERY HIGH Performed By: #### C LEELEE, ELEC, LIPID, LIVER, BUN #### [facility] [address] [address] [address] Brissa Ma Triglyceride [Mass/Vol] 100 mg/dL Normal <=150 [facility] Comment on above: Performed By: #### C LEELEE, ELEC, LIPID, LIVER, BUN #### [facility] [address] [address] [address] Brissa Ma VLDL CALC 20.0 mg/dL Normal [facility] Comment on above: Performed By: #### C LEELEE, ELEC, LIPID, LIVER, BUN #### [facility] [address] [place] [address] Dr. Brissa Ma LIVER PROFILEon 10-08-2021 Albumin [Mass/Vol] 3.4 g/dL Normal 3.4-5.0 [facility] Comment on above: Performed By: #### E LEC, BUN, BNP, LIVER, CREA #### [facility] [address] [place] [address] Dr. Brissa Ma Albumin/Globulin [Mass ratio] 1.0 {ratio} Normal [facility] Comment on above: Performed By: #### E LEC, BUN, BNP, LIVER, CREA #### [facility] [address] [place] [address] Dr. Brissa Ma ALP [Catalytic activity/Vol] 96 U/L Normal 46-116 [facility] Comment on above: Performed By: #### E LEC, BUN, BNP, LIVER, CREA #### [facility] [address] [place] [address] Dr. Brissa Ma ALT [Catalytic activity/Vol] 24 U/L Normal 16-63 [facility] Comment on above: Performed By: #### E LEC, BUN, BNP, LIVER, CREA #### [facility] [address] [place] [address] Dr. Brissa Ma AST [Catalytic activity/Vol] 14 U/L Critically low 15-37 [facility] Comment on above: Performed By: #### E LEC, BUN, BNP, LIVER, CREA #### [facility] [address] [address] [address] Brissa Ma BILI, CONJUGATED 0.1 mg/dL Normal 0.0-0.2 [facility] Comment on above: Performed By: #### E LEC, BUN, BNP, LIVER, CREA #### [facility] [address] [address] [address] Brissa Ma Bilirubin [Mass/Vol] 0.4 mg/dL Normal 0.2-1.0 [facility] Comment on above: Performed By: #### E LEC, BUN, BNP, LIVER, CREA #### [facility] [address] [place] [address] Dr. Brissa Ma Globulin (S) [Mass/Vol] 3.5 g/dL Normal [facility] Comment on above: Performed By: #### E LEC, BUN, BNP, LIVER, CREA #### [facility] [address] [place] [address] Dr. Brissa Ma Protein [Mass/Vol] 6.9 g/dL Normal 6.4-8.2 [facility] Comment on above: Performed By: #### E LEC, BUN, BNP, LIVER, CREA #### [facility] [address] [place] [address] Dr. Brissa Ma Vital Signs Date Time Vital Sign Value Performing Clinician Facility 07-24-2023 13:40-0400 Body height 167.6 cm Henrry Issa MD Work Phone: [facility] 07-24-2023 13:40-0400 Body mass index (BMI) [Ratio] 30.02 kg/m2 Henrry Issa MD Work Phone: [facility] 07-24-2023 13:40-0400 Body weight 84.37 kg Henrry Issa MD Work Phone: [facility] 07-24-2023 13:40-0400 Diastolic blood pressure 74 mm[Hg] Henrry Issa MD Work Phone: [facility] 07-24-2023 13:40-0400 Heart rate 82 /min Henrry Issa MD Work Phone: [facility] 07-24-2023 13:40-0400 Systolic blood pressure 134 mm[Hg] Henrry Issa MD Work Phone: [facility] 04-08-2023 13:24-0500 Body height 170.2 cm Trip BROOKS Work Phone: [facility] 04-08-2023 13:24-0500 Body mass index (BMI) [Ratio] 28.19 kg/m2 Trip Brown PA Work Phone: [facility] 04-08-2023 13:24-0500 Body weight 81.65 kg Trip Brown PA Work Phone: [facility] 01-14-2023 14:28-0500 Body height 170.2 cm Henrry Issa MD Work Phone: [facility] 01-14-2023 14:28-0500 Body mass index (BMI) [Ratio] 30.07 kg/m2 Henrry Issa MD Work Phone: [facility] 01-14-2023 14:28-0500 Body weight 87.09 kg Henrry Issa MD Work Phone: [facility] 01-14-2023 14:28-0500 Diastolic blood pressure 60 mm[Hg] Henrry Issa MD Work Phone: [facility] 01-14-2023 14:28-0500 Heart rate 92 /min Henrry Issa MD Work Phone: [facility] 01-14-2023 14:28-0500 Systolic blood pressure 106 mm[Hg] Henrry Issa MD Work Phone: [facility] 01-02-2023 11:43-0400 Body mass index (BMI) [Ratio] 30.4 kg/m2 JR Hugo Moser Work Phone: [facility] 12-31-2022 13:51-0400 Diastolic blood pressure 70 mm[Hg] JR Hugo Moser Work Phone: [facility] 12-31-2022 13:51-0400 Heart rate 83 /min JR Hugo Moser Work Phone: [facility] 12-31-2022 13:51-0400 Respiratory rate 14 /min JR Hugo Moser Work Phone: [facility] 12-31-2022 13:51-0400 SaO2% (BldA) [Mass fraction] 98 % JR Hugo Moser Work Phone: [facility] 12-31-2022 13:51-0400 Systolic blood pressure 112 mm[Hg] JR Hugo Moser Work Phone: [facility] 12-31-2022 12:00-0400 Body temperature 97.8 [degF] JR Hugo Moser Work Phone: [facility] 12-31-2022 06:00-0400 Body weight 86.5 kg JR Hugo Moser Work Phone: [facility] 12-30-2022 15:37-0400 Inhaled oxygen flow rate 6 L/min JR Hugo Moser Work Phone: [facility] 12-30-2022 15:12-0400 Body height 170.18 cm JR Hugo Moser Work Phone: [facility] 12-30-2022 15:12-0400 Body mass index (BMI) [Ratio] 30.4 kg/m2 JR Hugo Moser Work Phone: [facility] Encounters Encounter Date Encounter Type Care Provider Facility Start: 10-16-2023 End: 10-16-2023 ambulatory Hugo Moser Work Phone: [facility] Work Phone: Start: 10-16-2023 End: 10-16-2023 Patient encounter procedure JR Hugo Moser Work Phone: [facility]-Pacemaker Check Start: 08-17-2023 End: 08-17-2023 ambulatory GINI RAMIRES Not Available Start: 07-24-2023 End: 07-24-2023 ambulatory [facility] Start: 07-24-2023 End: 07-24-2023 Office outpatient visit 25 minutes Henrry Issa MD Work Phone: [facility] Comment on above: Non-ischemic cardiom yopathy (Multi) (Primary Dx); AV block, Mobitz II; Pacemaker; Mixed hyperlipidemia; BMI 30.0-30.9,adult Start: 07-15-2023 End: 07-15-2023 ambulatory Henrry Issa Facility:[facility] Start: 05-11-2023 End: 05-11-2023 ambulatory GINI RAMIRES Not Available Start: 04-15-2023 End: 04-15-2023 ambulatory Hugo Josy Ciro Facility:[facility] Start: 04-15-2023 End: 04-15-2023 ambulatory Hugo Moser Work Phone: [facility] Work Phone: Start: 04-15-2023 End: 04-15-2023 Patient encounter procedure JR Hugo Moser Work Phone: [facility]-Pacemaker Check Start: 04-08-2023 End: 04-08-2023 Office outpatient new 45 minutes Trip BROOKS Work Phone: [facility] Comment on above: Acute pain of right shoulder; Rotator cuff arthropathy, right; Arthritis of right acromioclavicular joint Start: 04-08-2023 End: 04-08-2023 ambulatory TRIP BROWN Not Available Start: 01-14-2023 End: 01-14-2023 ambulatory [facility] Start: 01-14-2023 End: 01-14-2023 Office outpatient visit 25 minutes Henrry Issa MD Work Phone: [facility] Comment on above: AV block, Mobitz II; Pacemaker; Obesity (BMI 30.0-34.9) Start: 01-08-2023 End: 01-08-2023 ambulatory [facility] Start: 01-08-2023 End: 01-08-2023 ambulatory Hugo Moser Work Phone: [facility] Work Phone: Start: 01-08-2023 End: 01-08-2023 Patient encounter procedure JR Hugo Moser Work Phone: [facility] [place] Work Phone: Start: 12-28-2022 End: 12-31-2022 Evaluation and management of inpatient Jarred Cline Facility:[facility] Start: 12-28-2022 End: 12-31-2022 Evaluation and management of inpatient JR Hugo Moser Work Phone: [facility] Work Phone: Start: 05-19-2022 End: 05-20-[address] HUGO MOSER Facility:[facility] Start: 01-22-2022 End: 01-23-[address] HUGO MOSER Facility:[facility] Start: 10-09-2021 Encounter for genera l adult medical examination without abnormal findings DR HUGO MOSER [facility] Start: 10-08-2021 End: 10-09-[address] HUGO [...] Treatment Date Care Activity Detail Author Start: 03-09-2024 End: 03-09-2024 Patient encounter procedure 03/09/2024 10:50 AM EST Office Visit [facility] [address] [place] [address] [address] [place] [address] Stephanie Steward MD [address] [facility] [address] [place] [address] [facility] Start: 11-01-2023 Influenza vaccination Influenza Vaccine (Season Ended) [facility] Start: 07-24-2023 End: 07-24-2023 Patient encounter procedure 07/24/2023 1:40 PM EDT Office Visit [address] [place] [address] Henrry Issa MD [address] [facility] [address] [place] [address] [facility] Start: 05-11-2023 End: 05-11-2023 Patient encounter procedure 05/11/2023 10:45 AM EDT Office Visit [facility] [address] [place] [address] Jr. Gini Cárdenas DO [address] [place] [address] [facility] Start: 12-31-2022 [facility] Start: 12-30-2022 [facility] Start: 12-28-2022 Insertion of Pacemaker Lead into Right Atrium, Percutaneous Approach Insertion of Pacemaker Lead into Right Atrium, Percutaneous Approach [facility] Start: 12-28-2022 Insertion of Pacemaker Lead into Right Ventricle, Percutaneous Approach Insertion of Pacemaker Lead into Right Ventricle, Percutaneous Approach [facility] Start: 12-28-2022 Insertion of Pacemaker, Dual Chamber into Chest Subcutaneous Tissue and Fascia, Open Approach Insertion of Pacemaker, Dual Chamber into Chest Subcutaneous Tissue and Fascia, Open Approach [facility] Start: 12-28-2022 Hospital admission [facility] Start: 12-28-2022 Referral to airplane charter clerk [facility] Start: 10-31-2022 COVID-19 Vaccine () COVID-19 Vaccine ( season) [facility] Start: 10-31-2022 Influenza vaccination Influenza Vaccine (#1) [facility] Start: 02-05-2022 COVID-19 Vaccine (4 - Moderna series) COVID-19 Vaccine (4 - Moderna series) [facility] Start: 05-18-2019 Pneumococcal Vaccine: 65+ Years (2 - PCV) Pneumococcal Vaccine: 65+ Years (2 - PCV) [facility] Start: 05-18-2019 Pneumococcal Vaccine: 65+ Years (2 of 2 - PCV) Pneumococcal Vaccine: 65+ Years (2 of 2 - PCV) [facility] Start: 1999 RSV patients and/or patients aged 60+ years (1 - 1-dose 60+ series) RSV patients and/or patients aged 60+ years (1 - 1-dose 60+ series) [facility] Start: 08-18-1989 Zoster Vaccines (1 of 2) Zoster Vaccines (1 of 2) [facility] Start: 08-18-1961 DTaP/Tdap/Td Vaccines (1 - Tdap) DTaP/Tdap/Td Vaccines (1 - Tdap) [facility] Start: 08-18-1958 Urine screening for protein Diabetes: Urine Protein Screening [facility] Start: 08-18-1949 Diabetic foot examination Diabetes: Foot Exam [facility] Start: 08-18-1949 Glaucoma screening Diabetes: Retinopathy Screening [facility] Start: 1940 Hemoglobin A1c measurement Diabetes: Hemoglobin A1C [facility] Start: 1939 Lipid panel Lipid Panel [facility] Start: 1940 Medicare Annual Wellness Visit Medicare Annual Wellness Visit (AWV) [facility] Patient Education Clindamycin (Systemic) [facility] Work Phone: Patient referral [facility] Work Phone: XR Shoulder - right 2 Views XR shoulder 2+ views right Imaging Routine Acute pain of right shoulder 04/08/2023 1:21 PM EST [facility] Work Phone: Immunizations Immunization Date Immunization Notes Care Provider Francis covington 12-11-2021 Moderna COVID-19 vaccine, bivalent, blue cap/goff label *Check age/dose* Henrry Issa MD Work Phone: [facility] 01-31-2021 influenza, injectabl e, quadrivalent, preservative free Henrry Issa MD Work Phone: [facility] Work Phone: 01-31-2021 influenza virus vacc ine, unspecified formulation Henrry Issa MD Work Phone: [facility] Work Phone: 05-17-2018 influenza, injectabl e, quadrivalent, preservative free Henrry Issa MD Work Phone: [facility] Work Phone: 05-17-2018 pneumococcal polysaccharide vaccine, 23 valent Henrry Issa MD Work Phone: [facility] Work Phone: Payers Date Payer Category Payer Self-pay 2022 Unknown [id number] 2004 Medicare [id number] 1959 Medicare [id number] 1959 Unknown [id number] 1939 Unknown [id number] 2.16.84 [id number] 1939 Unknown [id number] 2.16.84 [id number] 1939 Unknown [id number] 2.16.84 [id number] 1939 Unknown [id number] 2.16.8 [id number] 1939 Unknown [id number] 2.16.8 40.1.612477.3.579.2.1244 1939 Unknown [id number] 2.16.8 40.1.466059.3.579.2.1244 1939 Unknown [id number] 2.16.84 0.1.191804.3.579.2.1259 1939 Unknown [id number] 2.16.84 0.1.216836.3.579.2.1259 1939 Unknown [id number] 2.16.84 0.1.713633.3.579.2.1259 1939 Unknown [id number] 2.16.84 0.1.204019.3.579.2.1259 Unknown [id number] 2.16.8 40.1.290338.3.579.2.531 Unknown [id number] 2.16.8 40.1.565157.3.579.2.531 Unknown [id number] 2.16.8 [id number] Unknown [id number] 2.16.8 [id number] Social History Date Type Detail Facility Start: 12-30-2022 End: 01-14-2023 Tobacco smoking status NHIS Never smoked tobacco (finding) [facility] Start: 1940 Sex Assigned At Male F [facility] Start: 01-14-2023 End: 04-08-2023 Tobacco use and exposure Smokeless tobacco non-user [facility] Work Phone: Start: 01-14-2023 End: 07-24-2023 Alcohol intake Lifetime non-drinker (finding) [facility] Work Phone: Start: 01-14-2023 History of Social function [facility] Work Phone: Start: 01-14-2023 Tobacco use panel [facility] Work Phone: Start: 1940 Sex Assigned At Not on file [facility] Work Phone: Start: 01-04-2023 End: 07-24-2023 Exposure to SARS-CoV-2 (event) Not sure [facility] Start: 04-08-2023 Alcohol intake Current drinke r of alcohol (finding) [facility] Medical Equipment Procedure Code Equipment Code Equipment Origin al Text Equipment Identifier Dates Insertion, pacemaker Endocardial pacing lead [id number] FDA Start: 12-30-2022 Insertion, pacemaker Endocardial pacing lead ()[id number] FDA Start: 12-30-2022 Insertion, pacemaker Dual-chamber implantable pacemaker, rate-responsive ()[id number] FDA Start: 12-30-2022 Goals Date Patient Goal Desired Activity /State Functional Status Date Assessment Result Facility 12-31-2022 Functional status Patient at [facility] Work Phone: Mental Status Date Assessment Result Facility 12-31-2022 Cognitive function Cognitive Sta tus Patient at Baseline [facility] Work Phone: Clinical Notes 12-28-2022 to 07-24-2023 Henrry Issa MD - 07/24/2023 1:40 PM EDTPatient InstructionsTODD Driver - 04/08/2023 1:30 PM Adi Issa MD - 01/14/2023 3:10 PM ESTPatient Instructions Note Date & Type Note Facility 07-24-2023 History of Present illness Narrative Karen Jiménez is a 82 y.o. male Chief Complaint Follow-up HPI Review of Systems All other systems reviewed and are negative. Patient returns in follow-up of problems as noted. In the interim he has done well. From time to time he has orthostatic symptoms and because of this we checked orthostatic blood pressure and in fact he has a drop. Because of this we will stop his Entresto. We reviewed his echocardiogram from his hospitalization and his ejection fraction is normal because of this I believe is reasonable to stop this drug. In regards to his complete heart block he is doing well. He has had no syncope or near syncope and overall is doing well. Recent pacemaker checks are reviewed and found to be satisfactory. Management of lipids as well as mitigating stroke risk are reviewed and in light of all the above I believe no other adjustments in therapy are necessary. I did advocate aerobic activity diet and weight loss. Vitals: 07/24/23 1340 BP: 134/74 BP Location: Left arm Patient Position: Sitting Pulse: 82 Weight: 84.4 kg (186 lb) Height: 1.676 m (5' 6 ) Objective Physical Exam Constitutional: Appearance: Normal appearance. HENT: Nose: Nose normal. Neck: Vascular: No carotid bruit. Cardiovascular: Rate and Rhythm: Normal rate. Pulses: Normal pulses. Heart sounds: Normal heart sounds. Pulmonary: Effort: Pulmonary effort is normal. Abdominal: General: Bowel sounds are normal. Palpations: Abdomen is soft. Musculoskeletal: General: Normal range of motion. Cervical back: Normal range of motion. Right lower leg: No edema. Left lower leg: No edema. Skin: General: Skin is warm and dry. Neurological: General: No focal deficit present. Mental Status: He is alert. Psychiatric: Mood and Affect: Mood normal. Behavior: Behavior normal. Thought Content: Thought content normal. Judgment: Judgment normal. Allergies Patient has no known allergies. Current Medications Current Outpatient Medications: acarbose (Precose) 100 mg tablet, Take 1 tablet (100 mg) by mouth 3 times daily (morning, midday, late afternoon)., Disp: , Rfl: ezetimibe (Zetia) 10 mg tablet, Take 0.5 tablets (5 mg) by mouth once daily., Disp: , Rfl: finerenone (KERENDIA ORAL), Take 1 tablet by mouth once daily., Disp: , Rfl: Jardiance 25 mg, Take 1 tablet (25 mg) by mouth once daily in the morning. Take before meals., Disp: , Rfl: metFORMIN (Glucophage) 500 mg tablet, Take 1 tablet (500 mg) by mouth. Take one tablet by mouth at noon and two tablets by mouth at supper, Disp: , Rfl: Ozempic 1 mg/dose (4 mg/3 mL) pen injector, Inject 1 mg under the skin 1 (one) time per week., Disp: , Rfl: rosuvastatin (Crestor) 40 mg tablet, Take 1 tablet (40 mg) by mouth once daily., Disp: , Rfl: Xarelto 20 mg tablet, Take 1 tablet (20 mg) by mouth once daily., Disp: , Rfl: Pacemaker/Defibrillator follow up per routine Assessment/Plan 1. AV block, Mobitz II 2. Pacemaker 3. Non-ischemic cardiomyopathy (Multi) 4. Mixed hyperlipidemia 5. BMI 30.0-30.9,adult Scribe Attestation By signing my name below, IKaylynn LPN , Scribe attest that this documentation has been prepared under the direction and in the presence of Henrry Issa MD. Provider Attestation - Scribe documentation All medical record entries made by the Scribe were at my direction and personally dictated by me. I have reviewed the chart and agree that the record accurately reflects my personal performance of the history, physical exam, discussion and plan. documented in this encounter [facility] Work Phone: 07-24-2023 Instructions Sal Henson MA - 07/24/2023 1:40 PM EDT Please bring all medicines, vitamins, and herbal supplements with you when you come to the office. Prescriptions will not be filled unless you are compliant with your follow up appointments or have a follow up appointment scheduled as per instruction of your physician. Refills should be requested at the time of your visit. documented in this encounter [facility] Work Phone: 04-08-2023 History of Present illness Narrative Associated Order(s): L Inj/Asp: R subacromial bursa; M Inj/Asp: R acromioclavicular Post-Procedure Diagnose(s): Rotator cuff arthropathy, right; Arthritis of right acromioclavicular joint Images from the original note were not included. NAME: Emmanuel Jiménez : 1940 HISTORY OF PRESENT ILLNESS: NEW PT Emmanuel Jiménez is an 82 y.o. @ male. (PREVIOUS [...] with 2ml of 2 % lidocaine (Code 26816 RT) Procedure, treatment alternatives, risks and benefits [...] evaluation. TODD Driver documented in this encounter [facility] 01-14-2023 History of Present illness Narrative Karen Jiménez is a 82 y.o. male Chief Complaint [...] Obesity (BMI 30.0-34.9) documented in this encounter [facility] Work Phone: 01-14-2023 Instructions Lupe Burns LPN [...] up per routine documented in this encounter [facility] Work Phone: 12-31-2022 Progress note Note Date/Time December 31, 2022 10:25am [facility] [address] [place] [address] Cardiology Progress Note Signed Patient: Emmanuel Jiménez MR#: [id number] : 1940 Acct:[id number] Age/Sex: 82 / M Adm Date: 3 Loc: Room: [address] [place] [address] Type: ADM IN Attending Dr: Katie Osborne [...] % (Auto) 61.2 Lymph % (Auto) 27.7 Clark % (Auto) 8.9 Eos % (Auto) 1.6 Baso % (Auto) 0.6 Nucleat RBC Rel Count 0.0 Neut # (Auto) 4.1 Lymph # (Auto) 1.9 Clark # (Auto) 0.6 Eos # (Auto) 0.1 Baso # (Auto) 0.0 PHA Creatinine Clear Sodium Potassium Chloride Carbon Dioxide Anion Gap BUN Creatinine Est GFR (CKD-EPI) Glucose POC Glucose 206 183 Calcium Magnesium 12/31/22 06:36 Corrected WBC Uncorrected WBC Count RBC Hgb Hct MCV MCH MCHC RDW Plt Count MPV Neut % (Auto) Lymph % (Auto) Clark % (Auto) Eos % (Auto) Baso % (Auto) Nucleat RBC Rel Count Neut # (Auto) Lymph # (Auto) Clark # (Auto) Eos # (Auto) Baso # [...] clinic as scheduled. Follow-up with his primary airplane charter clerk Dr. Hugo Moser henceforth Documented By: Henrry Issa MD 1022 Signed By: <Electronically signed by MD Henrry Issa> 12/31/22 1033 [facility] Work Phone: 1(728) 234-157410-31-2023 Progress note Author Katie Osborne [facility] December 30, 2022 2:12pm Note Date/Time December 30, 2022 2 :12pm [facility] [address] [place] [address] Hospitalist Progress Note Signed Patient: Emmanuel Jiménez MR#: [id number] : 1940 Acct:[id number] Age/Sex: 82 / M Adm Date: 3 Loc: Room: [address] [place] [address] Type: ADM IN Attending Dr: Katie Osborne MD Copies to: ~ Date of Service: 12/30/2022 Subjective Subjective Narrative: Patient was seen and evaluated at bedside this morning. speech pathologist was reviewed, patient continued to have heart [...] Administration Enoxaparin Sodium 40 mg 12/29/22 10:00 10/31/23 09:17 Enoxaparin 40 Mg/0.4 Ml Syringe SUBCUT [...] Plan: ? Patient's baseline is unknown, at [place] his creatinine is 1.6, today here it is 1.4 ? Patient did receive atropine at [place], his heart rate has been improved while [...] <Electronically signed by Katie Osborne MD> 12/30/22 1412 [facility] Work Phone: 1(284) 522-898210-30-2023 Progress note Author Henrry Issa [facility] December 29, 2022 2:16pm Note Date/Time December 29, 2022 2 :16pm [facility] [address] [place] [address] Cardiology Progress Note Signed Patient: Emmanuel Jiménez MR#: [id number] : 1940 Acct:[id number] Age/Sex: 82 / M Adm Date: 3 Loc: Room: [address] [place] [address] Type: ADM IN Attending Dr: Katie Osborne [...] block. Intermittently he is conducting in a [id number]. No observed manifestations of complete heart block. [...] % (Auto) 48.1 Lymph % (Auto) 41.3 Clark % (Auto) 8.4 Eos % (Auto) 1.4 Baso % (Auto) 0.8 Nucleat RBC Rel Count 0.1 Neut # (Auto) 3.6 Lymph # (Auto) 3.1 Clark # (Auto) 0.6 Eos # (Auto) 0.1 [...] MPV Neut % (Auto) Lymph % (Auto) Clark % (Auto) Eos % (Auto) Baso % (Auto) Nucleat RBC Rel Count Neut # (Auto) Lymph # (Auto) Clark # (Auto) Eos # (Auto) Baso # [...] performed Thursday. Documented By: Henrry Issa MD 1411 Signed By: <Electronically signed by MD Henrry Issa> 12/29/22 1416 [facility] Work Phone: 1(570) 813-159310-30-2023 Progress note Author Katie Osborne [facility] December 29, 2022 1:57pm Note Date/Time December 29, 2022 1 :57pm [facility] [address] [place] [address] Hospitalist Progress Note Signed Patient: Emmanuel Jiménez MR#: [id number] : 1940 Acct:[id number] Age/Sex: 82 / M Adm Date: 3 Loc: Room: [address] [place] [address] Type: ADM IN Attending Dr: Katie Osborne MD Copies to: ~ Date of Service: 12/29/2022 Subjective Subjective Narrative: Patient was seen and evaluated at bedside this morning. speech pathologist was reviewed, patient continued to have heart [...] Plan: ? Patient's baseline is unknown, at [place] his creatinine is 1.6, today here it is 1.4 ? Patient did receive atropine at [place], his heart rate has been improved while [...] <Electronically signed by Katie Osborne MD> 12/29/22 7025 [facility] Work Phone: 1(264) 924-152010-29-2023 Consult note Author Haylee Benedict [facility] December 28, 2022 7:25pm Note Date/Time December 28, 2022 7 :22pm [facility] [address] [place] [address] Cardiology Consult Note Signed Patient: Emmanuel Jiménez MR#: [id number] : 1940 Acct:[id number] Age/Sex: 82 / M Adm Date: 3 Loc: Room: [address] [place] [address] Type: ADM IN Attending Dr: Jarred Cline DO Copies to: Hugo Moser Jr, DO MD Jarred More, DO~ Cardiology HPI History of Present Illness Consult Date: 12/28/22 Reason for Consult: Symptomatic bradycardia HPI: Mr. Jiménez is a 82 year old male with [...] by Haylee Benedict MD> 12/28/221924 [facility] Work Phone: 1(424) 961-288110-29-2023 History and physical note Author Jarred Cline [facility] December 28, 2022 1:36pm Note Date/Time December 28, 2022 1 :21pm [facility] [address] [place] [address] Hospitalist H&P Signed Patient: Emmanuel Jiménez MR#: [id number] : 1940 Acct:[id number] Age/Sex: 82 / M Adm Date: 3 Loc: Room: [address] [place] [address] Type: ADM IN Attending Dr: Jarred Cline DO Copies to: Hugo Moser Jr, DO Jarred Cline, ~ HPI DATE OF EXAMINATION: 12/28/22 CHIEF COMPLAINT: low heart rate HISTORY OF PRESENT ILLNESS: Mr Jiménez is an 82-year-old male with past medical history of diabetes and hypertension who presents hospital today with chief complaint of low heart rate. He was transferred here from [facility], he has been feeling exertional dyspnea for [...] to the emergency room. He went to [place] ER was then transferred back here due to there being no cardiology services at [place]. Patient denies any cough with his shortness [...] Plan: ? Patient's baseline is unknown, at [place] his creatinine is 1.6, today here it is 1.4 ? Likely secondary to decreased perfusion from bradycardia ? Patient did receive atropine at [place], his heart rate has been improved while [...] <Electronically signed by Jarred Cline DO> 12/28/22 1336 [facility] Work Phone: Discharge summary Author Katie Osborne [facility] December 31, 2022 12:42pm Note Date/Time December 31, 2022 1 2:43pm [facility] [address] [place] [address] Discharge Summary Signed Patient: Emmanuel Jiménez MR#: [id number] : 1940 Acct:[id number] Age/Sex: 82 / M Adm Date: 3 Loc: Room: [address] [place] [address]: Katie Osborne MD Copies to: [...] above Summary Hospital Course Hospital course: Mr Jiménez is an 82-year-old male with past medical history of diabetes and hypertension who presented with chief complaint of low heart rate. He was transferred here from [facility], he has been feeling exertional dyspnea for [...] % (Auto) 61.2, Lymph % (Auto) 27.7, Clark % (Auto) 8.9, Eos % (Auto) 1.6, Baso % (Auto) 0.6, Nucleat RBC Rel Count 0.0, Neut # (Auto) 4.1, Lymph # (Auto) 1.9, Clark # (Auto) 0.6, Eos # (Auto) 0.1, [...] with nurse for incision check in the [facility] Office on - we will call you. 2. Chest x-ray to be done the same day as your device check at [facility] 04/15/2023. 3. Pacemaker/ICD clinic appointment at [facility] on 04/15/2023 at 11:00am . 4. Office [...] signed by Katie Osborne MD> 12/31/22 1242 [facility] Work Phone: Evaluation note* Diagnosis Onset Date Resolution Status ZAC (acute kidney injury) ac [place] Diabetes mellitus acute HTN (hypertension) acute Mobitz type 2 second degree AV block acute [facility] Work Phone: Evaluation note* Diagnosis AV block, Mobitz II Mobitz (type) II atrioventricular block Pacemaker Cardiac pacemaker in situ Obesity (BMI 30.0-34.9) documented in this encounter [facility] Work Phone: Evaluation note* Diagnosis Acute pain of right shoulder Rotator cuff arthropathy, right Arthritis of right acromioclavicular joint documented in this encounter [facility] HealthcareEvaluation noteNo assessment information availableAd[facility] Work Phone: Evaluation note* Diagnosis Non-ischemic cardiomyopathy (Multi)- Primary Other primary cardiomyopathies AV block, Mobitz II Mobitz (type) II atrioventricular block Pacemaker Cardiac pacemaker in situ Mixed hyperlipidemia BMI 30.0-30.9,adult documented in this encounter [facility] Work Phone: Hospital Discharge instructions Additional [...] with nurse for incision check in the [facility] Office on - 01/08/2023 at 1:30pm. 2. Chest x-ray to be done the same day as your device check at [facility] 04/15/2023. 3. Pacemaker/ICD clinic appointment at [facility] on 04/15/2023 at 11:00am . 4. Office visit with Dr. Moser. [][facility] Work Phone: Reuvze for referral (narrative)* Consultation (Routine) - Authorized Specialty Diagnoses / Procedures Referred By Contac t Referred To Contact Cardiology Diagnoses AV block, Mobitz II Pacemaker Procedures Follow Up In Cardiology Henrry Issa MD [address] [place] [address], [address] [address] Henrry Issa MD [address] [place] [address] Referral ID Status Reason Start Date Expiration Date V isits Requested Visits Authorized [id number] Authorized 01/14/2023 01/14/2024 1 1 [facility] Work Phone: Rezzsl for referral (narrative)* Consultation (Routine) - Authorized Specialty Diagnoses / Procedures Referred By Contac t Referred To Contact Cardiology Diagnoses AV block, Mobitz II Procedures Follow Up In Cardiology Henrry Issa MD [address] [place] [address] [facility], [address] [address] Stephanie Steward MD [address] [place] [address], [address] [address] Referral ID Status Reason Start Date Expiration Date V isits Requested Visits Authorized [id number] Authorized 07/24/2023 07/23/2024 1 1 [facility] Work Phone: Summary Purpose Family History No Family History Records FoundNo Family History Records FoundNo Family History Records FoundNo Family History Records Found Advance Directives Advance Directive Response Recorded Date/ Time Advance [...] block Chief Complaint 2nd degree av block. Chief Complaint 2nd degree av block Reason for Referral Specialty Diagnoses / Procedures Referred By Milan t Referred To Contact Orthopaedic Surgery Diagnoses Arthritis of right acromioclavicular joint Procedures M Inj/Asp: R acromioclavicular Trip Brown PA [address] [address] Referral ID Status Reason Start Date Expiration Date V isits Requested Visits Authorized [id number] Pending Review 04/08/2023 10/05/2023 1 1 Specialty Diagnoses / Procedures Referred By Contdami t Referred To Contact Orthopaedic Surgery Diagnoses Rotator cuff arthropathy, right Procedures L Inj/Asp: R subacromial bursa Trip Brown PA 112 [facility] [address] [place] [address] Referral ID Status Reason Start Date Expiration Date V isits Requested Visits Authorized [id number] Authorized 04/08/2023 10/05/2023 1 1 Additional Source Comments (unrecognized sect ion and content) No Status Records FoundNo Status Records FoundNo Status Records FoundNo Status Records Found INFORMATION SOURCE (unrecogn ized section and content) DATE CREATED AUTHOR 05/25/2022 [facility] DATE CREATED AUTHOR AUTHOR'S ORGANIZ ATION 07/26/2023 [facility] DATE CREATED AUTHOR AUTHOR'S ORGANIZ ATION 07/31/2023 [facility] DATE CREATED AUTHOR AUTHOR'S ORGANIZ ATION 08/18/[address] [facility] d[facility] Specialists EPIC Care Teams (unrecognized sec tion and content) Team Status: Active Member Role Status Dates Hugo Moser JR DO Primary Care Provider Active Team Status: Inactive Member Role Status Dates Hugo Moser JR DO Primary Care Provider Active Jarred Cline , Admit Provider Active Katie Osborne MD Attending [...] Bolanos MD Other Provider Active Nikia Woodward , [facility]- Other Provider Active Lauren Steiner MD Other Provider Active Team Status: Inactive Member Role Status Dates Hugo Moser JR DO Primary Care Provider Active Henrry Issa MD Attending Provider Active Violin Tutor Relationship Specialty Start Date End Date Hugo Moser DO [facility] [place] [address] PCP - General Internal Medicine 12/31/22 Violin Tutor Relationship Specialty Start Date End Date Hugo Moser MD [facility] [place] [address] PCP - General Internal Medicine 04/08/23 Team Status: Inactive Member Role Status Dates Hugo Moser JR DO Primary Care Provider Active Start: April 15, 2023 End: April 15, 2023 Henrry Issa MD Referring Provider Active Start: April 15, 2023 End: April 15, 2023 Sangita Salas APRN Attending Provider Active Start: April 15, 2023 End: April 15, 2023 Violin Tutor Relationship Specialty Start Date End Date VinodshainaHugo DO PCP - General Internal Medicine 12/31/22 Team Status: Inactive Member Role Status Dates Hugo Moser JR DO Primary Care Provider Active Start: October 16, 2023 End: October 16, 2023 Henrry Issa MD Attending Provider Active Start: October 16, 2023 End: October 16, 2023 Reason for Visit (unrecogniz ed section and content) Reason Comments Follow-up Swelling and pain at pacemaker site.Placed 2 weeks ago. Specialty Diagnoses / Procedures Referred By Milan t Referred To Contact Cardiology Diagnoses AV block, Mobitz II Pacemaker Procedures Follow Up In Cardiology Henrry Issa MD [address] [place] [address], [place] [address] Referral ID Status Reason Start Date Expiration Date V isits Requested Visits Authorized [id number] Authorized 01/14/2023 01/14/2024 1 1 Reason Comments Pain Reason Comments Follow-up 6 month Specialty Diagnoses / Procedures Referred By Aceac t Referred To Contact Cardiology Diagnoses AV block, Mobitz II Pacemaker Procedures Follow Up In Cardiology Henrry Issa MD [address] [place] [address], [address] [id number] Henrry Issa MD [address] [place] [address], [address] [address] Referral ID Status Reason Start Date Expiration Date V isits Requested Visits Authorized [id number] Authorized 01/14/2023 01/14/2024 1 1 Goals (unrecognized section and content) Goals may be documented in a n alternate sectionGoals may be documented in an alternate section FOR RECORDS PERTAINING TO PATIENTS [...] BE BASED ON THE PRIMARY CLINICAL RECORDS. [facility]. provides no warranty or guarantee of the accuracy or completeness of information in this document.
[2023-10-17 06:44] LABS: Basophils Percent Auto 0.5 % (0.2-2.0); Eosinophils Absolute Auto 0.1 10^3/uL (0.0-0.7); Eosinophils Percent Auto 1.6 % (0.9-7.0); Hematocrit 43.4 % (42.0-54.0); Immature Granulocytes Abs Auto 0.05 10^3/uL (0.00-0.03); Immature Granulocytes Pct Auto 0.7 % (0.0-0.5); Lymphocytes Absolute Auto 2.3 10^3/uL (1.2-3.8); Lymphocytes Percent Auto 31.3 % (20.5-60.0); Mean Corpuscular HGB Conc 32.3 g/dL (29.9-35.2); Mean Corpuscular Hemoglobin 30.2 pg (25.9-34.0); Mean Corpuscular Volume 93.7 fL (80.0-94.0); Mean Platelet Volume 9.1 fL (9.5-13.5); Monocytes Absolute Auto 0.6 10^3/uL (0.3-0.8); Monocytes Percent Auto 8.3 % (1.7-12.0); Neutrophils Absolute Auto 4.2 10^3/uL (1.4-6.5); Neutrophils Percent Auto 57.6 % (43.0-75.0); Platelet Count 155 10^3/uL (150-450); Red Blood Count 4.63 10^6/uL (4.70-6.10); Red Cell Distribution Width 14.2 % (11.0-15.0); White Blood Count 7.4 10^3/uL (4.0-11.0)
[2023-10-17 08:08] LABS: Alanine Aminotransferase 25 U/L (16-63); Albumin Level 3.5 g/dL (3.4-5.0); Alkaline Phosphatase 102 U/L (46-116); Anion Gap 13.5; Aspartate Amino Transferase 23 U/L (15-37); Bilirubin Direct 0.1 mg/dL (0.0-0.2); Bilirubin Total 0.7 mg/dL (0.2-1.0); Carbon Dioxide 24.2 mmol/L (21.0-32.0); Chloride 103 mmol/L (98-107); Chol HDL Ratio 3.3; Cholesterol 109 mg/dL (<=200); Estimated GFR (African America >60 (>=60); Estimated GFR (Non-African Ame 52 (>=60); Globulin 3.6 g/dL; HDL Cholesterol 33 mg/dL (40-60); Potassium 4.7 mmol/L (3.5-5.1); Sodium 136 mmol/L (136-145); Thyroid Stimulating Hormone 0.955 uIU/mL (0.358-3.740); Total Protein 7.1 g/dL (6.4-8.2); Triglycerides 166 mg/dL (<=150); VLDL CHOLESTEROL 33.2 mg/dL
== END 2023-10-17 06:17 | disposition home or self-care (01) ==
LOC: LAB 06:17
PROVIDERS: PCP Internal Medicine; Visit Provider Internal Medicine
DX: E78.5 Hyperlipidemia, unspecified (principal); E11.65 Type 2 diabetes mellitus with hyperglycemia; I50.33 Acute on chronic diastolic (congestive) heart failure; N18.31 Chronic kidney disease, stage 3a; Z79.899 Other long term (current) drug therapy
CPT/HCPCS: 36415; 80051; 80061; 80076; 82565; 84443; 84520; 85025

== ENCOUNTER 2024-01-06 06:38 | Outpatient (OUT) | payer MEDICARE, SELFPAY ==
--- OUTSIDE RECORDS SUMMARY | 2024-01-06 06:40 | XMS_ITS | CCD ---
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 Name Role Phone SHANTI, DR ROGERS Admitting Unavailable VALONE, DR ROGERS Attending Unavailable VALONE, DR ROGERS Primary Care Unavailable VALONE, DR ROGERS Consulting Unavailable VALONE, DR ROGERS Admitting Unavailable VALONE, DR ROGERS Attending Unavailable VALONE, DR ROGERS Primary Care Unavailable VALONE, DR ROGERS Consulting Unavailable VALONE, DR ROGERS Admitting Unavailable VALONE, DR ROGERS Attending Unavailable VALONE, DR ROGERS Primary Care Unavailable VALONE, DR ROGERS Consulting Unavailable Karieone, JR Hugo Ferris Primary Care Provider DO Jarred Cline Admit Provider MD Katie Osborne Attending Provider SULEIMAN Prakash Other Provider Unavailable DO Aretha Chaparro Other Provider [phone] MD Stephanie Steward Other Provider [phone] MD Ignacio Issa Other Provider [phone] MD Farzana Escalera Other Provider [phone] MD Hugo Johnson Other Provider BHAVIN Gregorio Other Provider MD Natacha Padron Other Provider MD Kang Douglas Other Provider MD Jordan Bolanos Other Provider Crissy [facility] Nikia Ferris Other Provider [phone] MD Lauren Steiner Other Provider [phone] JR Hugo Moser Primary Care Provider DO Jarred Cline Admit Provider MD Katie Osborne Attending Provider SULEIMAN Prakash Other Provider Unavailable DO Aretha Chaparro Other Provider MD Stephanie Steward Other Provider MD Ignacio Issa Other Provider MD Farzana Escalera Other Provider MD Hugo Johnson Other Provider BHAVIN Gregorio Other Provider MD Natacha Padron Other Provider MD Kang Douglas Other Provider MD Jordan Bolanos Other Provider Crissy [facility] Nikia Ferris Other Provider MD Lauren Steiner Other Provider MD Ignacio Issa Attending Provider Hugo Moser DO Primary Care Provider Hugo Moser MD Primary Care Provider [phone] JR Hugo Moser Primary Care Provider MD Ignacio Issa Referring Provider BHAVIN Gregorio Attending Provider Hugo Moser DO Primary Care Provider JR Hugo Moser Primary Care Provider MD Ignacio Issa Attending Provider IGNACIO ISSA Referring Unavailable HUGO MOSER Primary Care Unavailable IGNACIO ISSA Attending Unavailable HUGO MOSER Primary Care Unavailable IGNACIO ISSA Referring Unavailable IGNACIO ISSA Attending Unavailable IGNACIO ISSA Referring Unavailable HUGO MOSER Primary Care Unavailable TRIP BROWN Attending Unavailable TRIP BROWN Referring Unavailable JR. CÁRDENAS GEORGE C Attending Unavailpamela CÁRDENAS JR., JAMSHID Griffin Attending Unavaila ble VEDA ROME Attending Unavailable VALMARY GRACE, HUGO Ferris Referring Unavailable KENNEDY CAMARA Attending Unavailable Ignacio Issa Attending Unavail able Ignacio Issa Admitting Unavail able ValoneHugo Primary Care Unavailable Ignacio Issa Referring Unavail able Valone, Hugo Ferris Primary Care Unavailable Sangita Salas Attending Unavailable Sangita Salas Admitting Unavailable Ignacio Issa Attending Unavail able McGuinnIgnacio Admitting Unavail able Valone, Hugo Ferris Primary Care Unavailable Ignacio Issa Attending Unavail able McGuinn, Ignacio Qiu Admitting Unavail able Valone, Hugo Ferris Primary Care Unavailable Allergies Allergy Classification Reported Allergen(s) Allergy Type Date of Onset Reaction(s) Facility (1 source) ALLERGIES NOT ON FILE; Translations: [ALLERGIES NOT ON FILE] Propensity to adverse reactions (disorder) [facility] 3 Repository Medications Current Medications Medication Drug Class(es) Dates Sig (Normalized) Sig (Original) acarbose 100 mg oral tablet (10 sources) alpha-Glucosidase Inhibitor Start: 12-28-2022 take 100 mg by mouth once daily Acarbose Active 100 MG PO Daily December 28, 2022 12:00am Start: 09-12-2022 take 1 tablet by dannie th three times daily acarbose (Precose) 100 mg tablet Take 1 tablet (100 mg) by mouth 3 times daily (morning, midday, late afternoon). 09/12/2022 Active End: 12-03-2023 acarbose (Precose) 100 MG ta blet 2 (two) times a day 12/03/2023 Discontinued clindamycin 300 mg oral capsule (4 sources) Lincosamide Antibacterial Start: 12-31-2022 take 600 mg by mouth three times daily Clindamycin Hcl Active 600 MG PO Three times daily 12 December 31, 2022 12:00am empagliflozin 25 mg oral tablet (15 sources) Sodium-Glucose Cotransporter 2 Inhibitor Start: 12-03-2023 take 1 tablet by mouth in the morning empagliflozin (Jardiance) 25 MG Indications: Type 2 diabetes mell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, without long-term current use of insulin (HCC) ([facility]) Take 1 tablet (25 mg) by mouth in the morning. 30 tablet 3 12/03/2023 Active Start: 11-10-2022 take 1 tablet by dannie th once daily Empagliflozin (Jardiance) 25 mg tablet Active 25 MG PO Daily December 28, 2022 12:00am End: 12-03-2023 take 12.5 mg by mouth in the morning Jardiance 25 MG Take 12.5 mg by mouth in the morning. 12/03/2023 Discontinued ezetimibe 10 mg oral tablet (13 sources) Dietary Cholesterol Absorption Inhibitor Start: 12-16-2022 [...] 5 mg by mouth in the morning. Active finerenone (KERENDIA ORAL) (1 source) take 1 tablet by dannie th once daily finerenone (KERENDIA ORAL) Take 1 tablet by mouth once daily. Active Finerenone (KERENDIA PO) (7 sources) Finerenone (KERE NDIA PO) Take 20 mg by mouth Active Finerenone (KERE NDIA PO) Take by mouth Active Finerenone (KERE NDIA PO) Take by mouth 0 Active metFORMIN hydrochloride 500 mg oral tablet (8 sources) Biguanide Start: 06-25-2023 End: 12-03-2023 take 2 tablets by mouth in the morning metFORMIN (Glucophage) 500 MG tablet Take 2 tablets (1,000 mg) by mouth in the morning and 2 tablets (1,000 mg) in the evening. Take with meals. 360 tablet 3 12/03/2023 Active Start: 06-25-2023 metFORMIN (Glu cophage) 500 mg tablet Take 1 tablet (500 mg) by mouth. Take one tablet by mouth at noon and two tablets by mouth at supper 06/25/2023 Active 24 hr metFORMIN hydrochloride 1000 mg / SITagliptin 100 mg extended release oral tablet (9 sources) Biguanide, Dipeptidyl Peptidase 4 Inhibitor Start: 12-23-2022 End: 07-24-2023 take 1 tablet by mouth once daily Sitagliptin Phos-Metformin (Janumet Xr) 100-1,000 mg tablet, ER multiphase 24 hr Active 100 - 1000 TAB PO Daily December 28, 2022 12:00am End: 12-01-2023 take 1 tablet by mouth every twenty-four hours in the morning Janumet XR 100-1000 MG per 24 hr tablet Take 1 tablet by mouth in the morning. 12/01/2023 Discontinued Ozempic 1 mg/dose (4 mg/3 mL) pen injector (1 source) Start: 05-18-2023 inject 1 mg by subcutaneous injection every week Ozempic 1 mg/dose (4 mg/3 mL) pen injector Inject 1 mg under the skin 1 (one) time per week. 05/18/2023 Active rosuvastatin calcium 40 mg oral tablet (13 sources) HMG-CoA Reductase Inhibitor Start: 11-11-2022 take 40 mg by mouth once daily Rosuvastatin Active 40 MG PO Daily December 28, 2022 12:00am Completed/Discontinued Medications Medication Drug Class(es) Dates Sig [...] 06/12/2022 01/14/2023 Discontinued (Discontinued by another clinician) meloxicam 15 mg oral tablet (2 sources) Nonsteroidal Anti-inflammatory Drug End: 4 meloxicam (Mobic) 15 MG tablet 1 (one) time each day at the same time 12/03/2023 Discontinued 1 ml methylPREDNISolone acetate 40 mg/ml injection (2 sources) Corticosteroid Start: 4 End: 4 methylPREDNISolone acetate (DEPO-Medrol) injection 40 mg Ozempic, 1 MG/DOSE, 4 MG/3ML solution pen-injector (2 sources) Start: 4 End: 4 inject 1 mg by subcutaneous injection every week Ozempic, 1 MG/DOSE, 4 MG/3ML solution pen-injector Inject 1 mg under the skin 1 (one) time per week 05/18/2023 12/03/2023 Discontinued rivaroxaban 20 mg oral tablet (8 sources) Factor Xa Inhibitor Start: 3 End: 4 take 1 tablet by mouth in the morning Xarelto 20 MG tablet Take 20 mg by mouth in the morning. 12/08/2022 12/03/2023 Discontinued sacubitril 24 mg / valsartan 26 mg oral tablet (12 sources) Angiotensin 2 Receptor Maria Victoria Start: 3 End: 4 take 1 tablet by mouth once daily Entresto 24-26 MG tablet Take 1 tablet by mouth Daily 06/26/2023 12/03/2023 Discontinued End: 12-01-2023 Sacubitril-Valsartan (ENTRES TO PO) Take by mouth 12/01/2023 Discontinued Sacubitril-Valsa rtan (ENTRESTO PO) Take by mouth 0 Active Semaglutide-Weight Managemen t 0.5 MG/0.5ML solution auto-injector (2 sources) End: 12-03-2023 Semaglutide-Weight Managemen t 0.5 MG/0.5ML solution auto-injector Inject 0.6 mg under the skin 12/03/2023 Discontinued Problems Active Problems Problem Classification Problem Date Documented Date Episodic/Chronic Acute and unspecified renal failure (6 sources) Acute renal failure syndrome; Translations: [Acute kidney failure, unspecified] 12-28-2022 Episodic Cardiac dysrhythmias (8 sources) Bradycardia; Translations: [Bradycardia, unspecified] 12-31-2022 Episodic Conduction disorders (20 sources) Mobitz type II atrioventricular block; Translations: [Atrioventricular block, second degree] Onset: 3 12-29-2022 Chronic Congestive heart failure; nonhypertensive (4 sources) Chronic diastolic (congestive) heart failure; Translations: [CHRONIC DIASTOLIC HEART FAILURE] Onset: 3 Chronic Diabetes mellitus with complications (16 sources) Type 2 diabetes mellitus with hyperglycemia; Translations: [Type 2 diabetes mellitus with diabetic chronic kidney disease] Onset: 2 12-03-2023 Chronic Diabetes mellitus without complication (11 sources) Diabetes mellitus; Translations: [Type 2 diabetes mellitus without complications] Onset: 3 12-28-2022 Chronic Disorders of lipid metabolism (11 sources) Mixed hyperlipidemia; Translations: [Mixed hyperlipidemia] Onset: 3 01-14-2023 Chronic Essential hypertension (12 sources) Hypertensive disorder; Translations: [Essential (primary) hypertension] Onset: 4 12-28-2022 Chronic Hypertension with complications and secondary hypertension (1 source) Hypertensive chronic kidney disease with stage 1 through stage 4 chronic kidney disease, or unspecified chronic kidney disease; Translations: [HTN CKD W/STAGE 1-4 CKD/UNS CKD] Onset: 2 Chronic Mycoses (2 sources) Pain in toe; Translations: [Tinea unguium] 12-06-2023 Episodic Osteoarthritis (7 sources) Arthritis of right acromioclavicular joint; Translations: [Primary osteoarthritis, right shoulder] Onset: 4 04-08-2023 Chronic Other aftercare (1 source) Other chcf (current) drug therapy; Translations: [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] Onset: 3 Episodic Other [...] caused by tuberculosis or sexually transmitted disease) (11 sources) Cardiomyopathy; Translations: [Other cardiomyopathies] Onset: 3 01-14-2023 Chronic Unclassified (1 source) CHRN KIDNEY DISEASE STG 3 UNSP; Translations: [CHRN KIDNEY DISEASE STG 3 UNSP] Onset: 2 Unclassified (1 source) Encounter for checking and testing of cardiac pacemaker pulse generator [battery]; Translations: [Encounter for checking and testing of cardiac pacemaker pulse generator [battery]] Onset: 4 Past or Other Problems Problem Classification Problem Date Documented Da te Episodic/Chronic Phlebitis; thrombophlebitis and thromboembolism (8 sources) Deep venous thrombosis; Translations: [Acute embolism and thrombosis of unspecified deep veins of unspecified lower extremity] Onset: 01-14-2023 01-14-2023 Episodic Unclassified (2 sources) Onset: 01-14-2023 01-14-2023 Results Test Name Value Interpretation Reference Range Facility XR chest 2V*on 04-15-2023 XR chest 2V* [facility] [place] [address] XRay Report Signed Patient: Emmanuel Jiménez MR#: [id number] [birth year] : 1940 Acct:[id number] Age/Sex: 82 / M ADM Date: 04/15/23 Loc: [facility] Room: Type: [facility] Attending Dr: Sangita Salas LABORATORY ANALYST Copies to: BHAVIN Beasley MD Ordering Provider: Ignacio Issa MD Date of Service: 04/15/23 XR/XR [...] Niki Scott M.D.04/15/2023 2:33 PM Dictation Location: [place] [address] Transcribed By: [facility] 04/15/23 1433 Dictated By: Niki Scott MD 04/15/23 1431 Signed By: 04/15/23 1433 Normal [facility] L Inj/Asp: R subacromial bur [...] with 2ml of 2 % lidocaine (Code 11936 RT) Procedure, treatment alternatives, risks and benefits explained, specific risks discussed. Consent was given by the patient. [facility] M Inj/Asp: R acromioclavicul garrett 04-08-2023 TODD [...] and draped in the usual sterile fashion. [facility] XR chest 2V*on 01-08-2023 XR chest 2V* [facility] Main [place] [address] [place] [address] XRay Report Signed Patient: Emmanuel Jiménez MR#: [id number] [birth year] : 1940 Acct:[id number] Age/Sex: 82 / M ADM Date: 01/08/23 Loc: XD Room: Type: [facility] Attending Dr: Ignacio Issa MD Copies to: Ignacio Issa MD Ordering Provider: Ignacio Issa MD Date of Service: 01/08/23 XR/XR [...] Bradley Uribe M.D.01/08/2023 5:16 PM Dictation Location: [place] [address] Transcribed By: [facility] 01/08/231715 Dictated By: Bradley Uribe DO 01/08/231714 Signed By: 01/08/231715 Normal [facility] Basophils Auto (Bld) [#/Vol] Ordered By: Jarred Cline on 12-31-2022 Basophils (Bld) [#/Vol] 0.0 10*3/uL 0.0-0.2 [facility] Basophils/100 WBC Auto (Bld) Ordered By: Jarred Cline on 12-31-2022 Basophils/100 WBC (Bld) 0.6 % . [facility] Calcium [Mass/volume] in Ser um or PlasmaOrdered By: Jarred Cline on 12-31-2022 Calcium [Mass/Vol] 8.9 mg/dL 8.6-10.3 [facility] Carbon dioxide, total [Moles /volume] in Serum or PlasmaOrdered By: Jarred Cline on 12-31-2022 CO2 [Moles/Vol] 22.9 mmol/L 21.0-31.0 [facility] Chloride [Moles/volume] in S chiquis or PlasmaOrdered By: Jarred Cline on 12-31-2022 Chloride [Moles/Vol] 106 mmol/L 98-107 [facility] Creatinine [Mass/volume] in Serum or PlasmaOrdered By: Jarred Cline on 12-31-2022 Creatinine [Mass/Vol] 1.20 mg/dL 0.70-1.[address] [facility] Eosinophils Auto (Bld) [#/Vo l]Ordered By: Jarred Cline on 12-31-2022 Eosinophils (Bld) [#/Vol] 0.1 10*3/uL 0.0-0.45 [facility] Eosinophils/100 WBC Auto (Bl d)Ordered By: Jarred Cline on 12-31-2022 Eosinophils/100 WBC (Bld) 1.6 % . [facility] Erythrocyte distribution wid th Auto (RBC) [Ratio]Ordered By: Jarred Cline on 12-31-2022 Erythrocyte distribution width (RBC) [Ratio] 14.9 % 12.0-14.8 [facility] Glucose [Mass/volume] in Ser um or PlasmaOrdered By: Jarred Cline on 12-31-2022 Glucose [Mass/Vol] 175 mg/dL 70-100 [facility] Comment on above: ADA recommended refe rence rangeRandom Glucose Reference Range is dependent on time and content of last meal. Glucose of more than 200 mg/dL in a nonstressed, ambulatory subject supports the diagnosis of Diabetes Mellitus. Hematocrit Auto (Bld) [Volum e fraction]Ordered By: Jarred Cline on 12-31-2022 Hematocrit (Bld) [Volume fraction] 39.1 % 38.8-50.0 [facility] Hemoglobin [Mass/volume] in BloodOrdered By: Jarred Cline 12-31-2022 Hemoglobin (Bld) [Mass/Vol] 13.0 g/dL 13.0-17.0 [facility] Leukocytes [#/volume] correc adela for nucleated erythrocytes in Blood by Automated counOrdered By: Jarred Cline on 12-31-2022 WBC corrected for nucl RBC Auto (Bld) [#/Vol] 6.7 10*3/uL 4.1-10.5 [facility] Lymphocytes Auto (Bld) [#/Vo l]Ordered By: Jarred Cline on 12-31-2022 Lymphocytes (Bld) [#/Vol] 1.9 10*3/uL 1.00-4.8 [facility] Lymphocytes/100 WBC Auto (Bl d)Ordered By: Jarred Cline on 12-31-2022 Lymphocytes/100 WBC (Bld) 27.7 % . [facility] MCH Auto (RBC) [Entitic mass ]Ordered By: Jarred Cline on 12-31-2022 MCH (RBC) [Entitic mass] 30.5 pg 27.5-35.2 [facility] MCHC Auto (RBC) [Mass/Vol]Or dered By: Jarred Cline on 12-31-2022 MCHC (RBC) [Mass/Vol] 33.3 g/dL 32.5-35.[address] [facility] MCV Auto (RBC) [Entitic vol] Ordered By: Jarred Cline on 12-31-2022 MCV (RBC) [Entitic vol] 91.5 fL 83.5-101 [facility] Magnesium [Mass/volume] in S chiquis or PlasmaOrdered By: Jarred Cline on 12-31-2022 Magnesium [Mass/Vol] 2.1 mg/dL 1.9-2.7 [facility] Monocytes Auto (Bld) [#/Vol] Ordered By: Jarred Cline on 12-31-2022 Monocytes (Bld) [#/Vol] 0.6 10*3/uL 0.0-0.8 [facility] Monocytes/100 WBC Auto (Bld) Ordered By: Jarred Cline on 12-31-2022 Monocytes/100 WBC (Bld) 8.9 % . [facility] Neutrophils Auto (Bld) [#/Vo l]Ordered By: Jarred Cline on 11-01-2023 Neutrophils (Bld) [#/Vol] 4.1 10*3/uL 1.8-7.7 [facility] Neutrophils/100 WBC Auto (Bl d)Ordered By: Jarred Cline on 12-31-2022 Neutrophils/100 WBC (Bld) 61.2 % . [facility] No Panel InformationOrdered By: Jarred Cline on 12-31-2022 Estimated GFR (CKD-EPI) > 60.0 mL/Min [facility] Creatinine Clearance (Chem 48.99 [facility] Nucleated erythrocytes [Pres ence] in Blood by Automated countOrdered By: Jarred Cline on 12-31-2022 Nucleated RBC Auto Ql (Bld) 0.0 /100{WBC} 0-0.5 [facility] Platelet mean volume Auto (B ld) [Entitic vol]Ordered By: Jarred Cline on 12-31-2022 Platelet mean volume (Bld) [Entitic vol] 7.2 fL 6.6-10.1 [facility] Platelets Auto (Bld) [#/Vol] Ordered By: Jarred Cline on 12-31-2022 Platelets (Bld) [#/Vol] 148 10*3/uL 150-450 [facility] Potassium [Moles/volume] in Serum or PlasmaOrdered By: Jarred Cline on 12-31-2022 Potassium [Moles/Vol] 4.1 mmol/L 3.5-5.[address] [facility] RBC Auto (Bld) [#/Vol]Ordere d By: Jarred Cline on 12-31-2022 RBC (Bld) [#/Vol] 4.27 10*6/uL 3.90-5.60 [facility] Serum or plasma anion gap de terminationOrdered By: Jarred Cline on 12-31-2022 Anion gap [Moles/Vol] 12.2 mmol/L 6.0-15.0 [facility] Sodium [Moles/volume] in Ser um or PlasmaOrdered By: Jarred Cline on 12-31-2022 Sodium [Moles/Vol] 137 mmol/L 136-145 [facility] Urea nitrogen [Mass/volume] in Serum or PlasmaOrdered By: Jarred Cline on 12-31-2022 Urea nitrogen [Mass/Vol] 23 mg/dL 7 [facility] WBC Auto (Bld) [#/Vol]Ordere d By: Jarred Cline on 12-31-2022 WBC (Bld) [#/Vol] 6.7 10*3/uL 4.1-10.5 [facility] Activated partial thrombopla stin time (aPTT) in platelet poor plasma by coagulation aOrdered By: Ignacio Issa on 12-30-2022 aPTT Coag (PPP) [Time] 30.2 s 25.1-36.5 [facility] Comment on above: A hematocrit value g reater than 55% may lead to inaccurate results in coagulation testing. Patients having hematocrit values >55% require a special collection tube for coagulation studies. Please contact the laboratory at [phone] for redraw instructions. Glucose Glucometer (dC) [M ass/Vol]Ordered By: Katie Osborne on 12-30-2022 Glucose [Mass/Vol] 183 mg/dL [facility] Comment on above: Random Glucose Refer ence Range is dependent on time and content of last meal. Glucose of more than 200 mg/dL in a nonstressed, ambulatory subject supports the diagnosis of Diabetes Mellitus. INR in Platelet poor plasma by Coagulation assayOrdered By: Ignacio Issa on 12-30-2022 INR Coag (PPP) [Relative time] 1.1 {INR} [facility] Comment on above: INR Therapeutic Rang [...] with mechanical heart valves: 3 - 4.5 Prothrombin time (PT)Ordered By: Ignacio Issa on 12-30-2022 PT Coag (PPP) [Time] 13.1 s 9.0-12.9 [facility] Comment on above: A hematocrit value g reater than 55% may lead to inaccurate results in coagulation testing. Patients having hematocrit values >55% require a special collection tube for coagulation studies. Please contact the laboratory at [phone] for redraw instructions. Cholesterol [Mass/volume] in Serum or PlasmaOrdered By: Jarred Cline on 12-29-2022 Cholesterol [Mass/Vol] 96 mg/dL 140-200 [facility] Comment on above: Chol less than 200 m g/dl low riskChol 201-239 mg/dl borderline riskChol 240 mg/dl and greater high risk Cholesterol in LDL Calc [Mas s/Vol]Ordered By: Jarred Cline on 12-29-2022 Cholesterol in LDL [Mass/Vol] 40 mg/dL 0-100 [facility] Comment on above: LDL ATP III CLASSIFI CATIONLDL less than 100 mg/dL OptimalLDL 100-129 mg/dL Near or above optimalLDL 130-159 mg/dL Borderline highLDL 160-189 mg/dL HighLDL greater than 189 mg/dL Very high Cholesterol in VLDL Calc [Ma ss/Vol]Ordered By: Jarred Cline on 12-29-2022 Cholesterol in VLDL [Mass/Vol] 26 mg/dL [facility] Serum or plasma high density lipoprotein (HDL) cholesterol measurementOrdered By: Jarred Cline on 12-29-2022 Cholesterol in HDL [Mass/Vol] 30 mg/dL 23-92 [facility] Comment on above: HDL CHOL ATP-III CLA SSIFICATION Cardiovascular RiskHDL > or equal to 60 mg/dL LOWHDL < 40 mg/dL HIGH Serum or plasma total choles terol/high density lipoprotein (HDL) cholesterol mass ratOrdered By: Jarred Cline on 12-29-2022 Cholesterol.total/Chol esterol in HDL [Mass ratio] 3.2 {ratio} <5.0 [facility] Triglyceride [Mass/volume] i n Serum or PlasmaOrdered By: Jarred Cline on 12-29-2022 Triglyceride [Mass/Vol] 132 mg/dL 0-149 [facility] Comment on above: TRIG ATP III CLASSIF ICATIONTRIG less than 150 mg/dL NormalTRIG 150-199 mg/dL Borderline highTRIG 200-500 mg/dL High TRIG greater than 500 mg/dL Very highStandard traceable to the Center for Disease Conrtrol and Prevention (CDC) test method. Glucose mean value [Mass/vol ume] in Blood Estimated from glycated hemoglobinOrdered By: Jarred Cline on 12-28-2022 Average glucose Estimated from glycated hemoglobin (Bld) [Mass/Vol] 212 mg/dL [facility] Hemoglobin A1c percentageOrd ered By: Jarred Cline on 12-28-2022 HbA1c (Bld) [Mass fraction] 9.0 % 4.3-5.6 [facility] Comment on above: Increased risk for d iabetes: 5.7 - 6.4diabetes: >6.4glycemic control for adults with diabetes: <7.0 BNPon 05-19-2022 Natriuretic peptide B (Bld) [Mass/Vol] 74.0 pg/mL Normal <=1,800.0 [facility] Comment on above: Performed By: #### E LEC, BUN, BNP, LIVER, CREA #### [facility] [address] [place] [address] Dr. Brissa Ma BUNon 05-19-2022 Urea nitrogen [Mass/Vol] 41.0 mg/dL Critically high 7.0-18.0 [facility] Comment on above: Performed By: #### E LEC, BUN, BNP, LIVER, CREA #### [facility] [address] [place] [address] Dr. Brissa Ma CBC AUTO DIFFon 05-19-2022 BASO # 0.1 103/ul Normal 0.0-0.1 [facility] Comment on above: Performed By: #### E LEC, BUN, BNP, LIVER, CREA #### [facility] [address] [place] [address] Dr. Brissa Ma Basophils/100 WBC (Bld) 0.8 % Normal 0.2-2.0 [facility] Comment on above: Performed By: #### E LEC, BUN, BNP, LIVER, CREA #### [facility] [address] [place] [address] Dr. Brissa Ma EO # 0.1 103/ul Normal 0.0-0.7 [facility] Comment on above: Performed By: #### E LEC, BUN, BNP, LIVER, CREA #### [facility] [address] [place] [address] Dr. Brissa Ma Eosinophils/100 WBC (Bld) 1.1 % Normal 0.9-7.0 [facility] Comment on above: Performed By: #### E LEC, BUN, BNP, LIVER, CREA #### [facility] [address] [place] [address] Dr. Brissa Ma Erythrocyte distribution width (RBC) [Ratio] 14.1 % Normal 11.0-15.0 [facility] Comment on above: Performed By: #### E LEC, BUN, BNP, LIVER, CREA #### [facility] [address] [place] [address] Dr. Brissa Ma Hematocrit (Bld) [Volume fraction] 47.8 % Normal 42.0-54.0 [facility] Comment on above: Performed By: #### E LEC, BUN, BNP, LIVER, CREA #### [facility] [address] [place] [address] Dr. Brissa Ma Hemoglobin (Bld) [Mass/Vol] 15.3 g/dL Normal 14.0-18.0 [facility] Comment on above: Performed By: #### E LEC, BUN, BNP, LIVER, CREA #### [facility] [address] [place] [address] Dr. Brissa Ma IG # 0.17 10e3/ul Critically high 0.00-0.[address] [facility] Comment on above: Performed By: #### E LEC, BUN, BNP, LIVER, CREA #### [facility] [address] [place] [address] Dr. Brissa Ma IG % 1.7 % Critically high 0.0-0.[address] [facility] Comment on above: Performed By: #### E LEC, BUN, BNP, LIVER, CREA #### [facility] [address] [place] [address] Dr. Brissa Ma LYMPH # 3.8 103/ul Normal 1.2-3.[address] [facility] Comment on above: Performed By: #### E LEC, BUN, BNP, LIVER, CREA #### [facility] [address] [place] [address] Dr. Brissa Ma Lymphocytes/100 WBC (Bld) 38.4 % Normal 20.5-60.0 [facility] Comment on above: Performed By: #### E LEC, BUN, BNP, LIVER, CREA #### [facility] [address] [place] [address] Dr. Brissa Ma MANUAL DIFF REQ NO Normal [facility] Comment on above: Performed By: #### E LEC, BUN, BNP, LIVER, CREA #### [facility] [address] [place] [address] Dr. Brissa Ma MCH (RBC) [Entitic mass] 30.2 pg Normal 25.9-34.[address] [facility] Comment on above: Performed By: #### E LEC, BUN, BNP, LIVER, CREA #### [facility] [address] [place] [address] Dr. Brissa Ma MCHC (RBC) [Mass/Vol] 32.0 g/dL Normal 29.9-35.[address] [facility] Comment on above: Performed By: #### E LEC, BUN, BNP, LIVER, CREA #### [facility] [address] [place] [address] Dr. Brissa Ma MCV (RBC) [Entitic vol] 94.3 fL Critically high 80.0-94.[address] [facility] Comment on above: Performed By: #### E LEC, BUN, BNP, LIVER, CREA #### [facility] [address] [place] [address] Dr. Brissa Ma MONO # 0.7 103/ul Normal 0.3-0.[address] [facility] Comment on above: Performed By: #### E LEC, BUN, BNP, LIVER, CREA #### [facility] [address] [place] [address] Dr. Brissa Ma Monocytes/100 WBC (Bld) 7.4 % Normal 1.7-12.[address] [facility] Comment on above: Performed By: #### E LEC, BUN, BNP, LIVER, CREA #### [facility] [address] [place] [address] Dr. Brissa Ma NEUT # 5.0 103/ul Normal 1.4-6.[address] [facility] Comment on above: Performed By: #### E LEC, BUN, BNP, LIVER, CREA #### [facility] [address] [place] [address] Dr. Brissa Ma Neutrophils/100 WBC (Bld) 50.6 % Normal 43.0-75.[address] [facility] Comment on above: Performed By: #### E LEC, BUN, BNP, LIVER, CREA #### [facility] [address] [place] [address] Dr. Brissa Ma Platelet mean volume (Bld) [Entitic vol] 9.0 fL Critically low 9.5-13.5 [facility] Comment on above: Performed By: #### E LEC, BUN, BNP, LIVER, CREA #### [facility] [address] [place] [address] Dr. Brissa Ma PLT 205 103/ul Normal 150-[address] [facility] Comment on above: Performed By: #### E LEC, BUN, BNP, LIVER, CREA #### [facility] [address] [place] [address] Dr. Brissa Ma RBC 5.07 106/ul Normal 4.70-6.[address] [facility] Comment on above: Performed By: #### E LEC, BUN, BNP, LIVER, CREA #### [facility] [address] [place] [address] Dr. Brissa Ma WBC 9.9 103/ul Normal 4.0-11.[address] [facility] Comment on above: Performed By: #### E LEC, BUN, BNP, LIVER, CREA #### [facility] [address] [place] [address] Dr. Brissa Ma CREATININEon 05-19-2022 Creatinine [Mass/Vol] 1.60 mg/dL Critically high 0.70-1.[address] [facility] Comment on above: Performed By: #### E LEC, BUN, BNP, LIVER, CREA #### [facility] [address] [place] [address] Dr. Brissa Ma EGFR-AF NIUEAN 50 mL/min/1.73m2 Critically low >=60 [facility] Comment on above: Performed By: #### E LEC, BUN, BNP, LIVER, CREA #### [facility] [address] [place] [address] Dr. Brissa Ma EGFR-NON AF NIUEAN 42 mL/min/1.73m2 Critically low >=60 [facility] Comment on above: Performed By: #### E LEC, BUN, BNP, LIVER, CREA #### [facility] [address] [place] [address] Dr. Brissa Ma ELECTROLYTESon 05-19-2022 Anion gap [Moles/Vol] 15.5 mmol/L Normal [facility] Comment on above: Performed By: #### E LEC, BUN, BNP, LIVER, CREA #### [facility] [address] [place] [address] Dr. Brissa Ma Chloride [Moles/Vol] 102 mmol/L Normal 98-107 [facility] Comment on above: Performed By: #### E LEC, BUN, BNP, LIVER, CREA #### [facility] [address] [place] [address] Dr. Brissa Ma CO2 [Moles/Vol] 25.5 mmol/L Normal 21.0-32.0 [facility] Comment on above: Performed By: #### E LEC, BUN, BNP, LIVER, CREA #### [facility] [address] [place] [address] Dr. Brissa Ma Potassium [Moles/Vol] 5.0 mmol/L Normal 3.5-5.1 [facility] Comment on above: Performed By: #### E LEC, BUN, BNP, LIVER, CREA #### [facility] [address] [place] [address] Dr. Brissa Ma Sodium [Moles/Vol] 138 mmol/L Normal 136-145 [facility] Comment on above: Performed By: #### E LEC, BUN, BNP, LIVER, CREA #### [facility] [address] [place] [address] Dr. Brissa Ma GLYCOHEMOGLOBIN A1Con 2022 ADA RECOMMENDATION SEE BELOW Normal [facility] Comment on above: Result Comment: ADA RECOMMENDED LIMIT 4.0 - 6.0 ADA THERAPEUTIC TARGET < 7.0 ACTION SUGGESTED > 7.0 Performed By: #### A 1C #### [facility] [address] [place] [address] Dr. Brissa Ma Glucose [Mass/Vol] 203 mg/dL Normal [facility] Comment on above: Performed By: #### A 1C #### [facility] [address] [place] [address] Dr. Brissa Ma HbA1c (Bld) [Mass fraction] 8.7 % Critically high 4.5-6.2 [facility] Comment on above: Performed By: #### A 1C #### [facility] [address] [place] [address] Dr. Brissa Ma LIVER PROFILEon 05-19-2022 Albumin [Mass/Vol] 3.7 g/dL Normal 3.4-5.0 [facility] Comment on above: Performed By: #### E LEC, BUN, BNP, LIVER, CREA #### [facility] [address] [place] [address] Dr. Brissa Ma Albumin/Globulin [Mass ratio] 1.0 {ratio} Normal [facility] Comment on above: Performed By: #### E LEC, BUN, BNP, LIVER, CREA #### [facility] [address] [place] [address] Dr. Brissa Ma ALP [Catalytic activity/Vol] 80 U/L Normal 46-[address] [facility] Comment on above: Performed By: #### E LEC, BUN, BNP, LIVER, CREA #### [facility] [address] [place] [address] Dr. Brissa Ma ALT [Catalytic activity/Vol] 16 U/L Normal 16-[address] [facility] Comment on above: Performed By: #### E LEC, BUN, BNP, LIVER, CREA #### [facility] [address] [place] [address] Dr. Brissa Ma AST [Catalytic activity/Vol] 18 U/L Normal 15-[address] [facility] Comment on above: Performed By: #### E LEC, BUN, BNP, LIVER, CREA #### [facility] [address] [place] [address] Dr. Brissa Ma BILI, CONJUGATED 0.1 mg/dL Normal 0.0-0.[address] [facility] Comment on above: Performed By: #### E LEC, BUN, BNP, LIVER, CREA #### [facility] [address] [place] [address] Dr. Brissa Ma Bilirubin [Mass/Vol] 0.7 mg/dL Normal 0.2-1.[address] [facility] Comment on above: Performed By: #### E LEC, BUN, BNP, LIVER, CREA #### [facility] [address] [place] [address] Dr. Brissa Ma Globulin (S) [Mass/Vol] 3.8 g/dL Normal [facility] Comment on above: Performed By: #### E LEC, BUN, BNP, LIVER, CREA #### [facility] [address] [place] [address] Dr. Brissa Ma Protein [Mass/Vol] 7.5 g/dL Normal 6.4-8.[address] [facility] Comment on above: Performed By: #### E LEC, BUN, BNP, LIVER, CREA #### [facility] [address] [place] [address] Dr. Brissa TINAJEROon 01-22-2022 Natriuretic peptide B (Bld) [Mass/Vol] 150.0 pg/mL Normal <=1,800.[address] [facility] Comment on above: Performed By: #### E LEC, BUN, BNP, LIVER, CREA #### [facility] [address] [place] [address] Dr. Brissa PARRon 01-22-2022 Urea nitrogen [Mass/Vol] 22.0 mg/dL Critically high 7.0-18.[address] [facility] Comment on above: Performed By: #### E LEC, BUN, BNP, LIVER, CREA #### [facility] [address] [place] [address] Dr. Brissa Ma CBC AUTO DIFFon 01-22-2022 BASO # 0.0 103/ul Normal 0.0-0.[address] [facility] Comment on above: Performed By: #### E LEC, BUN, BNP, LIVER, CREA #### [facility] [address] [place] [address] Dr. Brissa Ma Basophils/100 WBC (Bld) 0.5 % Normal 0.2-2.[address] [facility] Comment on above: Performed By: #### E LEC, BUN, BNP, LIVER, CREA #### [facility] [address] [place] [address] Dr. Brissa Ma EO # 0.1 103/ul Normal 0.0-0.[address] [facility] Comment on above: Performed By: #### E LEC, BUN, BNP, LIVER, CREA #### [facility] [address] [place] [address] Dr. Brissa Ma Eosinophils/100 WBC (Bld) 1.9 % Normal 0.9-7.[address] [facility] Comment on above: Performed By: #### E LEC, BUN, BNP, LIVER, CREA #### [facility] [address] [place] [address] Dr. Brissa Ma Erythrocyte distribution width (RBC) [Ratio] 14.1 % Normal 11.0-15.[address] [facility] Comment on above: Performed By: #### E LEC, BUN, BNP, LIVER, CREA #### [facility] [address] [place] [address] Dr. Brissa Ma Hematocrit (Bld) [Volume fraction] 43.1 % Normal 42.0-54.[address] [facility] Comment on above: Performed By: #### E LEC, BUN, BNP, LIVER, CREA #### [facility] [address] [place] [address] Dr. Brissa Ma Hemoglobin (Bld) [Mass/Vol] 13.7 g/dL Critically low 14.0-18.[address] [facility] Comment on above: Performed By: #### E LEC, BUN, BNP, LIVER, CREA #### [facility] [address] [place] [address] Dr. Brissa Ma IG # 0.05 10e3/ul Critically high 0.00-0.03 [facility] Comment on above: Performed By: #### E LEC, BUN, BNP, LIVER, CREA #### [facility] [address] [place] [address] Dr. Brissa Ma IG % 0.8 % Critically high 0.0-0.5 [facility] Comment on above: Performed By: #### E LEC, BUN, BNP, LIVER, CREA #### [facility] [address] [place] [address] Dr. Brissa Ma LYMPH # 2.7 103/ul Normal 1.2-3.8 [facility] Comment on above: Performed By: #### E LEC, BUN, BNP, LIVER, CREA #### [facility] [address] [place] [address] Dr. Brissa Ma Lymphocytes/100 WBC (Bld) 42.1 % Normal 20.5-60.0 [facility] Comment on above: Performed By: #### E LEC, BUN, BNP, LIVER, CREA #### [facility] [address] [place] [address] Dr. Brissa Ma MANUAL DIFF REQ NO Normal [facility] Comment on above: Performed By: #### E LEC, BUN, BNP, LIVER, CREA #### [facility] [address] [place] [address] Dr. Brissa Ma MCH (RBC) [Entitic mass] 29.8 pg Normal 25.9-34.[address] [facility] Comment on above: Performed By: #### E LEC, BUN, BNP, LIVER, CREA #### [facility] [address] [place] [address] Dr. Brissa Ma MCHC (RBC) [Mass/Vol] 31.8 g/dL Normal 29.9-35.2 [facility] Comment on above: Performed By: #### E LEC, BUN, BNP, LIVER, CREA #### [facility] [address] [place] [address] Dr. Brissa Ma MCV (RBC) [Entitic vol] 93.9 fL Normal 80.0-94.0 [facility] Comment on above: Performed By: #### E LEC, BUN, BNP, LIVER, CREA #### [facility] [address] [place] [address] Dr. Brissa Ma MONO # 0.5 103/ul Normal 0.3-0.[address] [facility] Comment on above: Performed By: #### E LEC, BUN, BNP, LIVER, CREA #### [facility] [address] [place] [address] Dr. Brissa Ma Monocytes/100 WBC (Bld) 7.8 % Normal 1.7-12.0 [facility] Comment on above: Performed By: #### E LEC, BUN, BNP, LIVER, CREA #### [facility] [address] [place] [address] Dr. Brissa Ma NEUT # 3.0 103/ul Normal 1.4-6.5 [facility] Comment on above: Performed By: #### E LEC, BUN, BNP, LIVER, CREA #### [facility] [address] [place] [address] Dr. Brissa Ma Neutrophils/100 WBC (Bld) 46.9 % Normal 43.0-75.[address] [facility] Comment on above: Performed By: #### E LEC, BUN, BNP, LIVER, CREA #### [facility] [address] [place] [address] Dr. Brissa Ma Platelet mean volume (Bld) [Entitic vol] 9.2 fL Critically low 9.5-13.[address] [facility] Comment on above: Performed By: #### E LEC, BUN, BNP, LIVER, CREA #### [facility] [address] [place] [address] Dr. Brissa Ma PLT 163 103/ul Normal 150-[address] [facility] Comment on above: Performed By: #### E LEC, BUN, BNP, LIVER, CREA #### [facility] [address] [place] [address] Dr. Brissa Ma RBC 4.59 106/ul Critically low 4.70-6.[address] [facility] Comment on above: Performed By: #### E LEC, BUN, BNP, LIVER, CREA #### [facility] [address] [place] [address] Dr. Brissa Ma WBC 6.4 103/ul Normal 4.0-11.0 [facility] Comment on above: Performed By: #### E LEC, BUN, BNP, LIVER, CREA #### [facility] [address] [place] [address] Dr. Brissa Ma CREATININEon 01-22-2022 Creatinine [Mass/Vol] 1.47 mg/dL Critically high 0.70-1.30 [facility] Comment on above: Performed By: #### E LEC, BUN, BNP, LIVER, CREA #### [facility] [address] [place] [address] Dr. Brissa Ma EGFR-AF NIUEAN 56 mL/min/1.73m2 Critically low >=[address] [facility] Comment on above: Performed By: #### E LEC, BUN, BNP, LIVER, CREA #### [facility] [address] [place] [address] Dr. Brissa Ma EGFR-NON AF NIUEAN 46 mL/min/1.73m2 Critically low >=60 [facility] Comment on above: Performed By: #### E LEC, BUN, BNP, LIVER, CREA #### [facility] [address] [place] [address] Dr. Brissa Ma ELECTROLYTESon 01-22-2022 Anion gap [Moles/Vol] 10.1 mmol/L Normal [facility] Comment on above: Performed By: #### E LEC, BUN, BNP, LIVER, CREA #### [facility] [address] [place] [address] Dr. Brissa Ma Chloride [Moles/Vol] 106 mmol/L Normal 98-107 [facility] Comment on above: Performed By: #### E LEC, BUN, BNP, LIVER, CREA #### [facility] [address] [address] [address] Brissa Ma CO2 [Moles/Vol] 28.4 mmol/L Normal 21.0-32.[address] [facility] Comment on above: Performed By: #### E LEC, BUN, BNP, LIVER, CREA #### [facility] [address] [place] [address] Dr. Brissa Ma Potassium [Moles/Vol] 4.5 mmol/L Normal 3.5-5.[address] [facility] Comment on above: Performed By: #### E LEC, BUN, BNP, LIVER, CREA #### [facility] [address] [place] [address] Dr. Brissa Ma Sodium [Moles/Vol] 140 mmol/L Normal 136-[address] [facility] Comment on above: Performed By: #### E LEC, BUN, BNP, LIVER, CREA #### [facility] [address] [place] [address] Dr. Brissa Ma GLYCOHEMOGLOBIN A1Con 2021 ADA RECOMMENDATION SEE BELOW Normal [facility] Comment on above: Result Comment: ADA RECOMMENDED LIMIT 4.0 - 6.0 ADA THERAPEUTIC TARGET < 7.0 ACTION SUGGESTED > 7.0 Performed By: #### A 1C #### [facility] [address] [place] [address] Dr. Brissa Ma Glucose [Mass/Vol] 223 mg/dL Normal [facility] Comment on above: Performed By: #### A 1C #### [facility] [address] [place] [address] Dr. Brissa Ma HbA1c (Bld) [Mass fraction] 9.4 % Critically high 4.5-6.[address] [facility] Comment on above: Performed By: #### A 1C #### [facility] [address] [place] [address] Dr. Brissa Ma LIVER PROFILEon 01-22-2022 Albumin [Mass/Vol] 3.6 g/dL Normal 3.4-5.[address] [facility] Comment on above: Performed By: #### E LEC, BUN, BNP, LIVER, CREA #### [facility] [address] [place], [place] [id number] Dr. Brissa Ma Albumin/Globulin [Mass ratio] 1.0 {ratio} Normal [facility] Comment on above: Performed By: #### E LEC, BUN, BNP, LIVER, CREA #### [facility] [address] [place] [address] Dr. Brissa Ma ALP [Catalytic activity/Vol] 86 U/L Normal 46-[address] [facility] Comment on above: Performed By: #### E LEC, BUN, BNP, LIVER, CREA #### [facility] [address] [place] [address] Dr. Brissa Ma ALT [Catalytic activity/Vol] 18 U/L Normal 16-[address] [facility] Comment on above: Performed By: #### E LEC, BUN, BNP, LIVER, CREA #### [facility] [address] [place] [address] Dr. Brissa Ma AST [Catalytic activity/Vol] 20 U/L Normal 15-[address] [facility] Comment on above: Performed By: #### E LEC, BUN, BNP, LIVER, CREA #### [facility] [address] [place] [address] Dr. Brissa Ma BILI, CONJUGATED 0.1 mg/dL Normal 0.0-0.2 [facility] Comment on above: Performed By: #### E LEC, BUN, BNP, LIVER, CREA #### [facility] [address] [place] [address] Dr. Brissa Ma Bilirubin [Mass/Vol] 0.4 mg/dL Normal 0.2-1.0 [facility] Comment on above: Performed By: #### E LEC, BUN, BNP, LIVER, CREA #### [facility] [address] [place] [address] Dr. Brissa Ma Globulin (S) [Mass/Vol] 3.7 g/dL Normal [facility] Comment on above: Performed By: #### E LEC, BUN, BNP, LIVER, CREA #### [facility] [address] [place] [address] Dr. Brissa Ma Protein [Mass/Vol] 7.3 g/dL Normal 6.4-8.2 [facility] Comment on above: Performed By: #### E LEC, BUN, BNP, LIVER, CREA #### [facility] [address] [place] [address] Dr. Brissa Ma BUNon 10-08-2021 Urea nitrogen [Mass/Vol] 25.0 mg/dL Critically high 7.0-18.0 [facility] Comment on above: Performed By: #### E LEC, BUN, BNP, LIVER, CREA #### [facility] [address] [place] [address] Dr. Brissa Ma CBC AUTO DIFFon 10-08-2021 BASO # 0.1 103/ul Normal 0.0-0.1 [facility] Comment on above: Performed By: #### C BC #### [facility] [address] [place] [address] Dr. Brissa Ma Basophils/100 WBC (Bld) 0.7 % Normal 0.2-2.0 [facility] Comment on above: Performed By: #### C BC #### [facility] [address] [place] [address] Dr. Brissa Ma EO # 0.1 103/ul Normal 0.0-0.7 [facility] Comment on above: Performed By: #### C BC #### [facility] [address] [place] [address] Dr. Brissa Ma Eosinophils/100 WBC (Bld) 1.8 % Normal 0.9-7.[address] [facility] Comment on above: Performed By: #### C BC #### [facility] [address] [place] [address] Dr. Brissa Ma Erythrocyte distribution width (RBC) [Ratio] 14.1 % Normal 11.0-15.[address] [facility] Comment on above: Performed By: #### C BC #### [facility] [address] [place] [address] Dr. Brissa Ma Hematocrit (Bld) [Volume fraction] 41.9 % Critically low 42.0-54.0 [facility] Comment on above: Performed By: #### C BC #### [facility] [address] [address] [address] Brissa Ma Hemoglobin (Bld) [Mass/Vol] 13.3 g/dL Critically low 14.0-18.0 [facility] Comment on above: Performed By: #### C BC #### [facility] [address] [address] [address] Brissa Ma IG # 0.06 10e3/ul Critically high 0.00-0.03 [facility] Comment on above: Performed By: #### C BC #### [facility] [address] [place] [address] Dr. Brissa Ma IG % 0.9 % Critically high 0.0-0.5 [facility] Comment on above: Performed By: #### C BC #### [facility] [address] [place] [address] Dr. Brissa Ma LYMPH # 2.6 103/ul Normal 1.2-3.[address] [facility] Comment on above: Performed By: #### C BC #### [facility] [address] [place] [address] Dr. Brissa Ma Lymphocytes/100 WBC (Bld) 37.8 % Normal 20.5-60.0 [facility] Comment on above: Performed By: #### C BC #### [facility] [address] [place] [address] Dr. Brissa Ma MANUAL DIFF REQ NO Normal [facility] Comment on above: Performed By: #### C BC #### [facility] [address] [place] [address] Dr. Brissa Ma MCH (RBC) [Entitic mass] 30.4 pg Normal 25.9-34.[address] [facility] Comment on above: Performed By: #### C BC #### [facility] [address] [place] [address] Dr. Brissa Ma MCHC (RBC) [Mass/Vol] 31.7 g/dL Normal 29.9-35.[address] [facility] Comment on above: Performed By: #### C BC #### [facility] [address] [address] [address] Brissa Ma MCV (RBC) [Entitic vol] 95.7 fL Critically high 80.0-94.0 [facility] Comment on above: Performed By: #### C BC #### [facility] [address] [place] [address] Dr. Brissa Ma MONO # 0.6 103/ul Normal 0.3-0.[address] [facility] Comment on above: Performed By: #### C BC #### [facility] [address] [place] [address] Dr. Brissa Ma Monocytes/100 WBC (Bld) 8.4 % Normal 1.7-12.0 [facility] Comment on above: Performed By: #### C BC #### [facility] [address] [place] [address] Dr. Brissa Ma NEUT # 3.4 103/ul Normal 1.4-6.5 [facility] Comment on above: Performed By: #### C BC #### [facility] [address] [place] [address] Dr. Brissa Ma Neutrophils/100 WBC (Bld) 50.4 % Normal 43.0-75.0 [facility] Comment on above: Performed By: #### C BC #### [facility] [address] [place] [address] Dr. Brissa Ma Platelet mean volume (Bld) [Entitic vol] 9.2 fL Critically low 9.5-13.[address] [facility] Comment on above: Performed By: #### C BC #### [facility] [address] [place] [address] Dr. Brissa Ma PLT 151 103/ul Normal 150-[address] [facility] Comment on above: Performed By: #### C BC #### [facility] [address] [place] [address] Dr. Brissa Ma RBC 4.38 106/ul Critically low 4.70-6.[address] [facility] Comment on above: Performed By: #### C BC #### [facility] [address] [place] [address] Dr. Brissa Ma WBC 6.8 103/ul Normal 4.0-11.0 [facility] Comment on above: Performed By: #### C BC #### [facility] [address] [place] [address] Dr. Brissa Ma CREATININEon 10-08-2021 Creatinine [Mass/Vol] 1.30 mg/dL Normal 0.70-1.30 [facility] Comment on above: Performed By: #### E LEC, BUN, BNP, LIVER, CREA #### [facility] [address] [place] [address] Dr. Brissa Ma EGFR-AF NIUEAN >60 Normal >=60 [facility] Comment on above: Performed By: #### E LEC, BUN, BNP, LIVER, CREA #### [facility] [address] [place] [address] Dr. Brissa Ma EGFR-NON AF NIUEAN 53 mL/min/1.73m2 Critically low >=60 [facility] Comment on above: Performed By: #### E LEC, BUN, BNP, LIVER, CREA #### [facility] [address] [place] [address] Dr. Brissa Ma ELECTROLYTESon 10-08-2021 Anion gap [Moles/Vol] 12.3 mmol/L Normal [facility] Comment on above: Performed By: #### E LEC, BUN, BNP, LIVER, CREA #### [facility] [address] [place] [address] Dr. Brissa Ma Chloride [Moles/Vol] 106 mmol/L Normal 98-107 [facility] Comment on above: Performed By: #### E LEC, BUN, BNP, LIVER, CREA #### [facility] [address] [place] [address] Dr. Brissa Ma CO2 [Moles/Vol] 24.3 mmol/L Normal 21.0-32.0 [facility] Comment on above: Performed By: #### E LEC, BUN, BNP, LIVER, CREA #### [facility] [address] [place] [address] Dr. Brissa Ma Potassium [Moles/Vol] 4.6 mmol/L Normal 3.5-5.1 [facility] Comment on above: Performed By: #### E LEC, BUN, BNP, LIVER, CREA #### [facility] [address] [place] [address] Dr. Brissa Ma Sodium [Moles/Vol] 138 mmol/L Normal 136-145 [facility] Comment on above: Performed By: #### E LEC, BUN, BNP, LIVER, CREA #### [facility] [address] [address] [address] Brissa Ma GLYCOHEMOGLOBIN A1Con 2021 ADA RECOMMENDATION SEE BELOW Normal [facility] Comment on above: Result Comment: ADA RECOMMENDED LIMIT 4.0 - 6.0 ADA THERAPEUTIC TARGET < 7.0 ACTION SUGGESTED > 7.0 Performed By: #### A 1C #### [facility] [address] [place] [address] Dr. Brissa Ma Glucose [Mass/Vol] 189 mg/dL Normal [facility] Comment on above: Performed By: #### A 1C #### [facility] [address] [place] [address] Dr. Brissa Ma HbA1c (Bld) [Mass fraction] 8.2 % Critically high 4.5-6.2 [facility] Comment on above: Performed By: #### A 1C #### [facility] [address] [place] [address] Dr. Brissa Ma LIPID PROFILEon 10-08-2021 CHOL-HDL RATIO NORM SEE BELOW Normal [facility] Comment on above: Result Comment: 3.3 - 4.4 LOW RISK 4.4 - 7.1 AVERAGE RISK 7.1 - 11.0 MODERATE RISK >11.0 HIGH RISK Performed By: #### C LEELEE, ELEC, LIPID, LIVER, BUN #### [facility] [address] [place] [address] Dr. Brissa Ma Cholesterol [Mass/Vol] 75 mg/dL Normal <=200 [facility] Comment on above: Performed By: #### C LELEEE, ELEC, LIPID, LIVER, BUN #### [facility] [address] [place] [address] Dr. Brissa Ma Cholesterol in HDL [Mass/Vol] 33 mg/dL Critically low 40-60 [facility] Comment on above: Performed By: #### C LEELEE, ELEC, LIPID, LIVER, BUN #### [facility] [address] [address] [address] Brissa Ma Cholesterol in LDL [Mass/Vol] 22.0 mg/dL Normal [facility] Comment on above: Performed By: #### C LEELEE, ELEC, LIPID, LIVER, BUN #### [facility] [address] [address] [address] Brissa Ma Cholesterol.total/Chol esterol in HDL [Mass ratio] 2.3 {ratio} Normal [facility] Comment on above: Performed By: #### C LEELEE, ELEC, LIPID, LIVER, BUN #### [facility] [address] [place] [address] Dr. Brissa Ma HDL NORMAL > or = 60 mg/dl - LO W CARDIOVASCULAR RISK <40 mg/dl - HIGH CARDIOVASCULAR RISK Normal [facility] Comment on above: Performed By: #### C LEELEE, ELEC, LIPID, LIVER, BUN #### [facility] [address] [address] [address] Brissa Ma LDL CALC NORMAL SEE BELOW Normal [facility] Comment on above: Result Comment: <100 mg/dl OPTIMAL 100 - 129 mg/dl NEAR OR ABOVE OPTIMAL 130 - 159 mg/dl BORDERLINE HIGH 160 - 189 mg/dl HIGH >190 mg/dl VERY HIGH Performed By: #### C LEELEE, ELEC, LIPID, LIVER, BUN #### [facility] [address] [place] [address] Dr. Brissa Ma Triglyceride [Mass/Vol] 100 mg/dL Normal <=[address] [facility] Comment on above: Performed By: #### C LEELEE, ELEC, LIPID, LIVER, BUN #### [facility] [address] [address] [address] Brissa Ma VLDL CALC 20.0 mg/dL Normal [facility] Comment on above: Performed By: #### C LEELEE, ELEC, LIPID, LIVER, BUN #### [facility] [address] [place] [address] Dr. Brissa Ma LIVER PROFILEon 10-08-2021 Albumin [Mass/Vol] 3.4 g/dL Normal 3.4-5.0 [facility] Comment on above: Performed By: #### E LEC, BUN, BNP, LIVER, CREA #### [facility] [address] [place] [address] Dr. Brissa Ma Albumin/Globulin [Mass ratio] 1.0 {ratio} Normal [facility] Comment on above: Performed By: #### E LEC, BUN, BNP, LIVER, CREA #### [facility] [address] [place] [address] Dr. Brissa Ma ALP [Catalytic activity/Vol] 96 U/L Normal 46-116 [facility] Comment on above: Performed By: #### E LEC, BUN, BNP, LIVER, CREA #### [facility] [address] [place] [address] Dr. Brissa Ma ALT [Catalytic activity/Vol] 24 U/L Normal 16-[address] [facility] Comment on above: Performed By: #### E LEC, BUN, BNP, LIVER, CREA #### [facility] [address] [place] [address] Dr. Brissa Ma AST [Catalytic activity/Vol] 14 U/L Critically low 15-37 [facility] Comment on above: Performed By: #### E LEC, BUN, BNP, LIVER, CREA #### [facility] [address] [place] [address] Dr. Brissa Ma BILI, CONJUGATED 0.1 mg/dL Normal 0.0-0.2 [facility] Comment on above: Performed By: #### E LEC, BUN, BNP, LIVER, CREA #### [facility] [address] [place] [address] Dr. Brissa Ma Bilirubin [Mass/Vol] 0.4 mg/dL Normal 0.2-1.0 [facility] Comment on above: Performed By: #### E LEC, BUN, BNP, LIVER, CREA #### [facility] [address] [place] [address] Dr. Brissa Ma Globulin (S) [Mass/Vol] 3.5 g/dL Normal [facility] Comment on above: Performed By: #### E LEC, BUN, BNP, LIVER, CREA #### [facility] [address] [address] [address] Brissa Ma Protein [Mass/Vol] 6.9 g/dL Normal 6.4-8.2 [facility] Comment on above: Performed By: #### E LEC, BUN, BNP, LIVER, CREA #### [facility] [address] [address] [address] Brissa Ma Vital Signs Date Time Vital Sign Value Performing Clinician Facility 12-10-2023 13:27-0400 Body height 170.2 cm Kennedy Camara DPM Work Phone: [facility] 12-10-2023 13:27-0400 Body mass index (BMI) [Ratio] 28.04 kg/m2 Kennedy Camara DPM Work Phone: [facility] 12-10-2023 13:27-0400 Body weight 81.19 kg Kennedy Camara DPM Work Phone: [facility] 12-10-2023 13:27-0400 Respiratory rate 17 /min Kennedy Camara DPM Work Phone: [facility] 12-03-2023 13:58-0400 Body height 170.2 cm Veda Petznick DO Work Phone: [facility] 12-03-2023 13:58-0400 Body mass index (BMI) [Ratio] 28.16 kg/m2 Veda Petznick DO Work Phone: [facility] 12-03-2023 13:58-0400 Body temperature 96.4 [degF] Veda Petznick DO Work Phone: [facility] 12-03-2023 13:58-0400 Body weight 81.56 kg Veda Petznick DO Work Phone: [facility] 12-03-2023 13:58-0400 Diastolic blood pressure 68 mm[Hg] Veda Petznick DO Work Phone: [facility] 12-03-2023 13:58-0400 Heart rate 74 /min Veda Petznick DO Work Phone: [facility] 12-03-2023 13:58-0400 SaO2% (BldA) [Mass fraction] 98 % Veda Petznick DO Work Phone: [facility] 12-03-2023 13:58-0400 Systolic blood pressure 102 mm[Hg] Veda Petznick DO Work Phone: [facility] 07-24-2023 13:40-0400 Body height 167.6 cm Ignacio Issa MD Work Phone: [facility] 07-24-2023 13:40-0400 Body mass index (BMI) [Ratio] 30.02 kg/m2 Ignacio Issa MD Work Phone: [facility] 07-24-2023 13:40-0400 Body weight 84.37 kg Ignacio Issa MD Work Phone: [facility] 07-24-2023 13:40-0400 Diastolic blood pressure 74 mm[Hg] Ignacio Issa MD Work Phone: [facility] 07-24-2023 13:40-0400 Heart rate 82 /min Ignacio Issa MD Work Phone: [facility] 07-24-2023 13:40-0400 Systolic blood pressure 134 mm[Hg] Ignacio Issa MD Work Phone: [facility] 04-08-2023 13:24-0500 Body height 170.2 cm Trip BROOKS Work Phone: [facility] 04-08-2023 13:24-0500 Body mass index (BMI) [Ratio] 28.19 kg/m2 Trip BROOKS Work Phone: [facility] 04-08-2023 13:24-0500 Body weight 81.65 kg Trip BROOKS Work Phone: [facility] 01-14-2023 14:28-0500 Body height 170.2 cm Ignacio Issa MD Work Phone: [facility] 01-14-2023 14:28-0500 Body mass index (BMI) [Ratio] 30.07 kg/m2 Ignacio Issa MD Work Phone: [facility] 01-14-2023 14:28-050 Body weight 87.09 kg Ignacio Issa MD Work Phone: [facility] 01-14-2023 14:28-0500 Diastolic blood pressure 60 mm[Hg] Ignacio Issa MD Work Phone: [facility] 01-14-2023 14:28-0500 Heart rate 92 /min Ignacio Issa MD Work Phone: [facility] 01-14-2023 14:28-0500 Systolic blood pressure 106 mm[Hg] Ignacio Issa MD Work Phone: [facility] 01-02-2023 11:43-0400 Body mass index (BMI) [Ratio] 30.4 kg/m2 JR Hugo Moser Work Phone: [facility] 12-31-2022 13:51-0400 Diastolic blood pressure 70 mm[Hg] JR Hugo Moser Work Phone: [facility] 12-31-2022 13:51-0400 Heart rate 83 /min JR Hugo Moser Work Phone: [facility] 12-31-2022 13:51-0400 Respiratory rate 14 /min JR Hugo Moser Work Phone: [facility] 12-31-2022 13:51-0400 SaO2% (BldA) [Mass fraction] 98 % JR Hugo Moser Work Phone: [facility] 12-31-2022 13:51-0400 Systolic blood pressure 112 mm[Hg] JR Hugo Moser Work Phone: [facility] 12-31-2022 12:00-0400 Body temperature 97.8 [degF] JR Hugo Moser Work Phone: [facility] 12-31-2022 06:00-0400 Body weight 86.5 kg JR Hugo Moser Work Phone: [facility] 12-30-2022 15:37-0400 Inhaled oxygen flow rate 6 L/min JR Hugo Moser Work Phone: [facility] 12-30-2022 15:12-0400 Body height 170.18 cm JR Hugo Moser Work Phone: [facility] 12-30-2022 15:12-0400 Body mass index (BMI) [Ratio] 30.4 kg/m2 JR Hugo Moser Work Phone: [facility] Encounters Encounter Date Encounter Type Care Provider Facility Start: 12-10-2023 End: 12-10-2023 Bamboo flowsheet Kennedy Camara DPM Work Phone: [facility] Start: 12-10-2023 End: 12-10-2023 Bamboo flowsheet Kennedy Camara DPM Work Phone: [facility] Start: 12-10-2023 End: 12-10-2023 Patient encounter procedure Kennedy Camara DPM Work Phone: [facility] Comment on above: Type 2 diabetes enriqueta itus without complication, unspecified whether terminal make up operator insulin use ([facility]) (Primary Dx); Pain due to onychomycosis of toenails of both feet Start: 12-10-2023 End: 12-10-2023 ambulatory KENNEDY CAMARA Not Available Start: 12-03-2023 End: 12-03-2023 Office outpatient new 45 minutes Veda Rome DO Work Phone: [facility] Comment on above: Type 2 diabetes enriqueta 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, without long-term current use of insulin (HCC) ([facility]) (Primary Dx); Type 2 diabetes mellitus with hyperglycemia, without long-term current use of insulin ([facility]) Start: 12-03-2023 End: 12-03-2023 ambulatory VEDA ROME Not Available Start: 12-02-2023 End: 12-02-2023 Telephone encounter Veda Rome DO Work Phone: [facility] Start: 10-16-2023 End: 10-16-2023 Patient encounter procedure JR Hugo Moser Work Phone: [facility] Start: 10-16-2023 End: 10-16-2023 ambulatory JR Hugo Moser Work Phone: [facility] Work Phone: Start: 08-17-2023 End: 08-17-2023 ambulatory JAMSHID RAMIRES Not Available Start: 07-24-2023 End: 07-24-2023 Office outpatient visit 25 minutes Ignacio Issa MD Work Phone: [facility] Comment on above: Non-ischemic cardiom yopathy (Multi) (Primary Dx); AV block, Mobitz II; Pacemaker; Mixed hyperlipidemia; BMI 30.0-30.9,adult Start: 07-24-2023 End: 07-24-2023 ambulatory [facility] Start: 07-15-2023 End: 07-15-2023 [facility] Start: 05-11-2023 End: 05-11-2023 ambulatory JAMSHID RAMIRES Not Available Start: 04-15-2023 End: 04-15-2023 Patient encounter procedure JR Hugo Moser Work Phone: [facility] Start: 04-15-2023 End: 04-15-2023 ambulatory JR Hugo Moser Work Phone: [facility] Work Phone: Start: 04-08-2023 End: 04-08-2023 Office outpatient new 45 minutes Trip BROOKS Work Phone: [facility] Comment on above: Acute pain of right shoulder; Rotator cuff arthropathy, right; Arthritis of right acromioclavicular joint Start: 04-08-2023 End: 04-08-2023 ambulatory TRIP BROWN Not Available Start: 01-14-2023 End: 01-14-2023 Office outpatient visit 25 minutes Ignacio Issa MD Work Phone: [facility] Comment on above: AV block, Mobitz II; Pacemaker; Obesity (BMI 30.0-34.9) Start: 01-14-2023 End: 01-14-2023 ambulatory IGNACIO ISSA [facility] Start: 01-08-2023 End: 01-08-2023 Patient encounter procedure JR Hugo Moser Work Phone: [facility] Work Phone: Start: 01-08-2023 End: 01-08-2023 ambulatory JR Hugo Moser Work Phone: [facility] Work Phone: Start: 12-28-2022 End: 12-31-2022 Evaluation and management of inpatient JR Hugo Moser Work Phone: [facility] Work Phone: Start: 05-19-2022 End: 05-20-[address] HUGO MOSER Facility:[facility] Start: 01-22-2022 End: 01-23-[address] HUGO MOSER Facility:[facility] Start: 10-09-2021 Encounter for genera l adult medical examination without abnormal findings DR HUGO MOSER [facility] Start: 10-08-2021 End: 10-09-[address] HUGO MOSER Facility:[facility] Start: 10-08-2021 End: 10-09-2021 Encounter for general adult medical examination without abnormal findings DR HUGO MOSER Facility:[facility] Procedures Date Procedure Procedure Detail Performing Clinician Start: 04-15-2023 Plain chest X-ray JR Haven Moser Work Phone: Start: 04-08-2023 End: 04-08-2023 Arthrocentesis aspir&/inj major jt/bursa w/o us Trip BROOKS Work Phone: Start: 01-14-2023 FOLLOW UP IN CARDIOLOGY IGNACIO ISSA Start: 01-08-2023 FOLLOW UP IN CARDIOLOGY IGNACIO ISSA Start: 01-08-2023 Plain chest X-ray JR yeimy Moser Work Phone: Start: 12-31-2022 Plain chest X-ray JR Haven Moser Work Phone: Start: 12-30-2022 Plain chest X-ray JR Ch yeimy Moser Work Phone: Start: 12-30-2022 Implantation of card iac pacemaker JR Hugo Moser Work Phone: Plan of Treatment Date Care Activity Detail Author Start: 03-09-2024 End: 03-09-2024 Patient encounter procedure 03/09/2024 10:50 AM EST Office Visit [facility] [address] [facility] [address] [place] [phone] Stephanie Steward MD [address] [facility] [address] [place] [address] [facility] Start: 02-17-2024 End: 02-17-2024 Patient encounter procedure 02/17/2024 10:00 AM EST Office Visit [facility] [address] [place] [phone] Jr. Jamshid Cárdenas, DO [address] [place] [address] [facility] Start: 01-15-2024 End: 01-15-2024 Patient encounter procedure 01/15/2024 2:00 PM EST Office Visit [facility] [address] [place] [address] Veda Rome, DO [address] [place] [address] [facility] Start: 12-10-2023 End: 12-10-2023 Patient encounter procedure [facility] Comment on above: Type 2 diabetes enriqueta itus without complication, unspecified whether terminal make up operator insulin use ([facility]) (Primary Dx); Pain due to onychomycosis of toenails of both feet Start: 12-03-2023 End: 12-03-2023 Patient encounter procedure 12/03/2023 2:00 PM EDT Office Visit [facility] [address] [place] [phone] Veda Rome, [address] [place] [address] [facility] Start: 11-01-2023 Influenza vaccination [facility] Start: 07-24-2023 End: 07-24-2023 Patient encounter procedure 07/24/2023 1:40 PM EDT Office Visit [facility] [address] [facility] [address] [place] [address] Ignacio Issa MD [address] [facility] [address] [place] [address] [facility] Start: 05-11-2023 End: 05-11-2023 Patient encounter procedure 05/11/2023 10:45 AM EDT Office Visit [facility] [address] [place] [phone] Jr. Jamshid Cárdenas, DO [address] [place] [address] [facility] Start: 12-31-2022 [facility] Start: 12-30-2022 [facility] Start: 12-28-2022 Insertion of Pacemak er Lead into Right Atrium, Percutaneous Approach Insertion of Pacemaker Lead into Right Atrium, Percutaneous Approach [facility] Start: 12-28-2022 Insertion of Pacemak er Lead into Right Ventricle, Percutaneous Approach Insertion of Pacemaker Lead into Right Ventricle, Percutaneous Approach [facility] Start: 12-28-2022 Insertion of Pacemak er, Dual Chamber into Chest Subcutaneous Tissue and Fascia, Open Approach Insertion of Pacemaker, Dual Chamber into Chest Subcutaneous Tissue and Fascia, Open Approach [facility] Start: 12-28-2022 Hospital admission [facility] Start: 12-28-2022 Referral to inhalation therapist [facility] Start: 10-31-2022 COVID-19 Vaccine () COVID-19 Vaccine () [facility] Start: 10-31-2022 Influenza vaccination Influenza Vacc ine (#1) [facility] Start: 02-05-2022 COVID-19 Vaccine (4 - Moderna series) COVID-19 Vaccine (4 - Moderna series) [facility] Start: 05-18-2019 Pneumococcal Vaccine : 65+ Years (2 - PCV) Pneumococcal Vaccine: 65+ Years (2 - PCV) [facility] Start: 05-18-2019 Pneumococcal Vaccine : 65+ Years (2 of 2 - PCV) Pneumococcal Vaccine: 65+ Years (2 of 2 - PCV) [facility] Start: 1999 RSV patient s and/or patients aged 60+ years (1 - 1-dose 60+ series) RSV patients and/or patients aged 60+ years (1 - 1-dose 60+ series) [facility] Start: 08-18-1989 Zoster Vaccines (1 of 2) Zoste r Vaccines (1 of 2) [facility] Start: 08-18-1961 DTaP/Tdap/Td Vaccine s (1 - Tdap) DTaP/Tdap/Td Vaccines (1 - Tdap) [facility] Start: 08-18-1958 Urine screening for protein Diabetes: Urine Protein Screening [facility] Start: 08-18-1949 Diabetic foot examination Diabetes: Foot Exam [facility] Start: 08-18-1949 Glaucoma screening Diabetes: R etinopathy Screening [facility] Start: 1939 Hemoglobin A1c measurement Diabetes: Hemoglobin A1C [facility] Start: 1939 Lipid panel Lipid Panel [facility] Start: 1939 Medicare Annual Well ness Visit Medicare Annual Wellness Visit (AWV) [facility] Patient Education Clindamycin (Systemic) [facility] Work Phone: Patient referral [facility] Work Phone: XR Shoulder - right 2 Views XR shoulder 2+ views right Imaging Routine Acute pain of right shoulder 04/08/2023 1:21 PM EST [facility] Work Phone: Immunizations Immunization Date Immunization Notes Care Provider Fa adria 12-11-2021 Moderna COVID-19 vaccine, bivalent, blue cap/goff label *Check age/dose* Ignacio Issa MD Work Phone: [facility] 01-31-2021 influenza, injectabl e, quadrivalent, preservative free Ignacio Issa MD Work Phone: [facility] Work Phone: 01-31-2021 influenza virus vacc ine, unspecified formulation Ignacio Issa MD Work Phone: [facility] Work Phone: 05-17-2018 influenza, injectabl e, quadrivalent, preservative free Ignacio Issa MD Work Phone: [facility] Work Phone: 05-17-2018 pneumococcal polysaccharide vaccine, 23 valent Ignacio Issa MD Work Phone: [facility] Work Phone: Payers Date Payer Category Payer Self-pay 2022 Unknown [id number] 2004 Medicare [id number] 1959 Medicare [id number] 1959 Unknown [id number] 1939 Unknown [id number] 2.16.84 [id number] 1939 Unknown [id number] 2.16.84 [id number] 1939 Unknown [id number] 2.16.84 [id number] 1939 Unknown [id number] 2.16.8 [id number] 1939 Unknown [id number] 2.16.8 [id number] 1939 Unknown [id number] 2.16.8 40.1.339010.3.579.2.1244 1939 Unknown [id number] 2.16.84 0.1.431074.3.579.2.1259 1939 Unknown [id number] 2.16.84 0.1.973323.3.579.2.1259 1939 Unknown [id number] 2.16.84 0.1.122405.3.579.2.1259 1939 Unknown [id number] 2.16.84 0.1.741599.3.579.2.1259 1939 Unknown [id number] 2.16.84 0.1.449375.3.579.2.1259 1939 Unknown [id number] 2.16.84 0.1.339488.3.579.2.1259 Unknown [id number] 2.16.8 40.1.447648.3.579.2.531 Unknown [id number] 2.16.8 40.1.160809.3.579.2.531 Unknown [id number] 2.16.8 40.1.596498.3.579.2.531 Unknown [id number] Social History Date Type Detail Facility Start: 12-30-2022 End: 04-08-2023 Tobacco smoking status ARIS Never smoked tobacco (finding) [facility] Start: 1940 Sex Assigned At Male F [facility] Start: 01-14-2023 End: 04-08-2023 Tobacco use and exposure Smokeless tobacco non-user [facility] Work Phone: Start: 01-14-2023 End: 07-24-2023 Alcohol intake Lifetime non-drinker (finding) [facility] Work Phone: Start: 01-14-2023 End: 12-10-2023 History of Social function [facility] Work Phone: Start: 01-14-2023 End: 12-10-2023 Tobacco use panel [facility] Work Phone: Start: 1940 Sex Assigned At Not on file U [facility] Work Phone: Start: 01-04-2023 End: 07-24-2023 Exposure to SARS-CoV-2 (event) Not sure [facility] Start: 04-08-2023 End: 12-10-2023 Alcohol intake Current drinker of alcohol (finding) [facility] Healthcare Medical Equipment Procedure Code Equipment Code Equipment Origin al Text Equipment Identifier Dates Insertion, pacemaker Endocardial pacing lead [id number] FDA Start: 12-30-2022 Insertion, pacemaker Endocardial pacing lead [id number] FDA Start: 12-30-2022 Insertion, pacemaker Dual-chamber implantable pacemaker, rate-responsive [id number] FDA Start: 12-30-2022 Goals Date Patient Goal Desired Activity /State Functional Status Date Assessment Result Facility 12-31-2022 Functional status Patient at Baseline [facility] Work Phone: Mental Status Date Assessment Result Facility 12-31-2022 Cognitive function Cognitive Sta tus Patient at Baseline [facility] Work Phone: Clinical Notes 12-28-2022 to 12-10-2023 Kennedy Camara DPM - 12/10/2023 1:40 PM Arlen Rome, DO - 12/03/2023 4:02 PM Arlen Rome, DO - 12/03/2023 2:00 PM Aimee Issa MD - 07/24/2023 1:40 PM EDT Note Date & Type Note Facility 12-10-2023 History of Present illness Narrative Patient: Emmanuel Jiménez : 1940 PCP: Hugo Moser MD SUBJECTIVE This is a 83 y.o. male that presents today with a CC of elongated, thick nails. Pt states nails have been elongated and thick for many years and cause pain with ambulation in shoegear. Pt has tried previous treatment with minimal relief. Pt presents today for nail care and treatment. Pt is dm2 Allergies: No Known Allergies Past Medical History: Past Medical History: Diagnosis Date Diabetes (CMS/[facility]) Hx of deep venous thrombosis Hyperlipemia ([facility]) Hypertension ([facility]) Medications: Current Outpatient Medications: empagliflozin (Jardiance) 25 MG, Take 1 tablet (25 mg) by mouth in the morning., Disp: 30 tablet, Rfl: 3 ezetimibe (Zetia) 10 MG tablet, Take 5 mg by mouth in the morning., Disp: , Rfl: Finerenone (KERENDIA PO), Take 20 mg by mouth, Disp: , Rfl: metFORMIN (Glucophage) 500 MG tablet, Take 2 tablets (1,000 mg) by mouth in the morning and 2 tablets (1,000 mg) in the evening. Take with meals., Disp: 360 tablet, Rfl: 3 rosuvastatin (Crestor) 40 MG tablet, Take 40 mg by mouth in the morning., Disp: , Rfl: Social History: Social History Socioeconomic History Marital status: Spouse name: Not on file Number of children: Not on file Years of education: Not on file Highest education level: Not on file Occupational History Not on file Tobacco Use Smoking status: Never Smokeless tobacco: Never Substance and Sexual Activity Alcohol use: Yes Drug use: Never Sexual activity: Not on file Other Topics Concern Not on file Social History Narrative Not on file Social Determinants of Health Financial Resource Strain: Not on file Food Insecurity: Not on file Transportation Needs: Not on file Physical Activity: Not on file Stress: Not on file Social Connections: Not on file Intimate Partner Violence: Not on file Housing Stability: Not on file ROS: General: denies fever, chills, fatigue, malaise OBJECTIVE LE EXAM: DERM: Elongated thick yellow crumbly nails digits 1 through 10. Diminished hair growth b/l feet. VASC: Negative palpable pedal pulses bilaterally NEURO: 5.07 [place] Claudia monofilament test intact to digits and forefoot bilaterally 125Hz tuning fork diminished to 1st MPJ bilaterally ORTHO: Positive pain on palpation to nails 1 through 10 ASSESSMENT 1. Type 2 diabetes mellitus without complication, unspecified whether chcf insulin use ([facility]) 2. Pain due to onychomycosis of toenails of both feet PLAN Discussed proper foot care with patient today. [place] nails in length and thickness digits 1 through 10 Patient educated today on proper diabetic foot care including monitoring feet daily for any signs of infection openings in the skin or irregularities to both feet. Patient had a diabetic neurological exam today to both their feet and discussed proper shoe gear. Kennedy Camara DPM documented in this encounter [facility] 12-03-2023 History of Present illness Narrative Associated Problem(s): Type 2 diabetes mellitus with hyperglycemia, without long-term current use of insulin ([facility]) During the appointment today all pertinent labs, imaging, health maintenance, and glucose readings were reviewed. Encouraged to check blood glucose throughout the day with some fasting and some PP readings. They are to bring their glucose meter/cgm in to all appointments. All of the patients questions, treatment options, and current care plan and goals were discussed. A copy of this along with pertinent instructions were given to the patient at the end of the appointment. The patient voices understanding of all of this and is to call in between appointments if they have any problems or questions. Emmanuel Jessy blood sugars are worsening. , Discussed dietary changes at length. Encouraged to limit simple carbs and focus more on healthy protein/fat with all meals and snacks. They should also avoid any sugary drinks. , Instructions given today include: Hypoglycemia management and Dietary education. I don't recommend compounded semaglutide and it sounds like that and ozempic didn't help his bg anyway so will stop this. Will stop acarbose as they doesn't really help much with bg either. I suspect that he needs basal insulin but he is hesitant to start this. Will add jardiance to his metformin and he is going to work on his diet. If bg are not improving, will add basal insulin. Will have him cut his kerendia in half due to restarting jardiance and already having a low BP and lightheadedness. He is to make sure he is drinking enough water. Images from the original note were not included. Emmanuel Jiménez is a 83 y.o. male presents with chief complaint of Diabetes HPI: Diabetes Mellitus Initial: Patient here for initial evaluation of diabetes mellitus. The initial diagnosis of diabetes was made about 5-6 years ago Symptoms at diagnosis include none- through labs Previously tried medications include: Jardiance Complications include: none He has been checking his blood glucose regularly. Bg running 180-230 the last few weeks. Last A1c: 9.2 on 10/09/2023 Eye exam: 2022- Dr. Garrett/ Nicole Crum Current concerns include: Bg have been OK . Ranging from 117-293. Pt states he does not feel well when readings are high states he feel unsteady. Diet: Trying to limit portions Breakfast: Banana, cereal on occasion (cinnamon toast crunch- low sugar) Lunch: [place] (ham), fruit (peaches, pears, melon) Dinner: Varies- steak, sausage, pasta on occasion Snacks: Ice cream cone, veggies Drinks: Water, coffee (creamer) Exercise: Walking 2 miles a day Hypoglycemia: None Has been getting the semaglutide through compounding pharmacy for about 5 months. Was on ozempic 1 mg through the pharmacy prior to that and his sugars were not very good. SUBJECTIVE: PROBLEM LIST SOCIAL ALLERGIES: Patient Active Problem List Diagnosis Type 2 diabetes mellitus with hyperglycemia, without long-term current use of insulin ([facility]) HTN (hypertension) (CMS/[facility]) Mixed hyperlipidemia (CMS/HCC) Mobitz type II atrioventricular block Localized, primary osteoarthritis of hand DVT (deep venous thrombosis) (CMS/HCC) Non-ischemic cardiomyopathy (CMS/HCC) Pacemaker Type 2 diabetes mell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, without long-term current use of insulin (HCC) (CMS/HCC) Social History Tobacco Use Smoking status: Never Smokeless tobacco: Never Substance Use Topics Alcohol use: Yes Drug use: Never No Known Allergies Synopsis [facility] 12/03/2023 12/01/2023 23:59 Antidiabetic medications Acarbose 2 (two) times a day (100 MG TABS)-Discontinued 2 (two) times a day (100 MG TABS) No sig Empagliflozin 12.5 mg q AM PO (25 MG TABS)-Discontinued 12.5 mg q AM PO (25 MG TABS) No sig Empagliflozin 25 mg q AM PO metFORMIN HCl Take 1,000 mg by mouth (500 MG TABS)-Discontinued (Dose adjustm) Take 500 mg by mouth No sig metFORMIN HCl 1,000 mg BID with meals PO Semaglutide 1 mg Weekly SC (4 MG/3ML SOPN)-Discontinued 1 mg Weekly SC (4 MG/3ML SOPN) No sig SITagliptin-metFORMIN HCl 1 tablet Daily PO (100-1000 MG TB24) -Discontinued No sig Outpatient prescription Medication marked as long-term Patient-reported medication REVIEW OF SYMPTOMS: Review of Systems Constitutional: Positive for fatigue. Negative for appetite change and unexpected weight change. Eyes: Negative for visual disturbance. Respiratory: Negative for cough, shortness of breath and wheezing. Cardiovascular: Negative for chest pain, palpitations and leg swelling. Neurological: Negative for numbness. Endocrine: Negative for polydipsia, polyphagia and polyuria. OBJECTIVE: 12/03/2023 1:58 PM 04/08/2023 1:24 PM 05/08/2022 12:00 PM Vitals BMI 28.16 kg/m2 28.19 kg/m2 32.28 kg/m2 Systolic 102 Diastolic 68 Heart Rate 74 Temp 96.4 F Height (in) 5' 7 5' 7 5' 6 Weight (lb) 179.8 180 200 Visit Report Report Report Physical Exam Constitutional: General: He is not in acute distress. Appearance: Normal appearance. Cardiovascular: Rate and Rhythm: Normal rate and regular rhythm. Heart sounds: No murmur heard. No friction rub. No gallop. Pulmonary: Breath sounds: Normal breath sounds. No wheezing, rhonchi or rales. Musculoskeletal: General: No swelling. Neurological: Mental Status: He is alert. ASSESSMENT AND PLAN: Problem List Items Addressed This Visit Type 2 diabetes mellitus with hyperglycemia, without long-term current use of insulin ([facility]) During the appointment today all pertinent labs, imaging, health maintenance, and glucose readings were reviewed. Encouraged to check blood glucose throughout the day with some fasting and some PP readings. They are to bring their glucose meter/cgm in to all appointments. All of the patients questions, treatment options, and current care plan and goals were discussed. A copy of this along with pertinent instructions were given to the patient at the end of the appointment. The patient voices understanding of all of this and is to call in between appointments if they have any problems or questions. Emmanuel [place] blood sugars are worsening. , Discussed dietary changes at length. Encouraged to limit simple carbs and focus more on healthy protein/fat with all meals and snacks. They should also avoid any sugary drinks. , Instructions given today include: Hypoglycemia management and Dietary education. I don't recommend compounded semaglutide and it sounds like that and ozempic didn't help his bg anyway so will stop this. Will stop acarbose as they doesn't really help much with bg either. I suspect that he needs basal insulin but he is hesitant to start this. Will add jardiance to his metformin and he is going to work on his diet. If bg are not improving, will add basal insulin. Will have him cut his kerendia in half due to restarting jardiance and already having a low BP and lightheadedness. He is to make sure he is drinking enough water. Type 2 diabetes mell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, without long-term current use of insulin (HCC) ([facility]) - Primary Relevant Medications empagliflozin (Jardiance) 25 MG Follow up in about 6 weeks (around 01/14/2024) for Recheck. Patient's Medications New Prescriptions No medications on file Previous Medications EZETIMIBE (ZETIA) 10 MG TABLET Take 5 mg by mouth in the morning. FINERENONE (KERENDIA PO) Take 20 mg by mouth ROSUVASTATIN (CRESTOR) 40 MG TABLET Take 40 mg by mouth in the morning. Modified Medications Modified Medication Previous Medication EMPAGLIFLOZIN (JARDIANCE) 25 MG Jardiance 25 MG Take 1 tablet (25 mg) by mouth in the morning. Take 12.5 mg by mouth in the morning. METFORMIN (GLUCOPHAGE) 500 MG TABLET metFORMIN (Glucophage) 500 MG tablet Take 2 tablets (1,000 mg) by mouth in the morning and 2 tablets (1,000 mg) in the evening. Take with meals. Take 1,000 mg by mouth Discontinued Medications ACARBOSE (PRECOSE) 100 MG TABLET 2 (two) times a day ENTRESTO 24-26 MG TABLET Take 1 tablet by mouth Daily JANUMET XR 100-1000 MG PER 24 HR TABLET Take 1 tablet by mouth in the morning. MELOXICAM (MOBIC) 15 MG TABLET 1 (one) time each day at the same time OZEMPIC, 1 MG/DOSE, 4 MG/3ML SOLUTION PEN-INJECTOR Inject 1 mg under the skin 1 (one) time per week SACUBITRIL-VALSARTAN (ENTRESTO PO) Take by mouth SEMAGLUTIDE-WEIGHT MANAGEMENT 0.5 MG/0.5ML SOLUTION AUTO-INJECTOR Inject 0.6 mg under the skin XARELTO 20 MG TABLET Take 20 mg by mouth in the morning. I have reviewed and reconciled the history and medication list with the patient today. documented in this encounter [facility] 12-02-2023 Telephone encounter Note Pt's answered the phone. Reminded her of her 's appointment tomorrow with Dr. Mccollum. voiced understanding [facility] 12-02-2023 Miscellaneous Notes Pt's answered the phone. Reminded her of her 's appointment tomorrow with Dr. Mccollum. voiced understanding documented in this encounter [facility] 07-24-2023 History of Present illness Narrative Subjective Emmanuel [place] is a 82 y.o. male Chief Complaint [...] the direction and in the presence of Ignacio Issa MD. Provider Attestation - Scribe documentation All medical record entries made by the Scribe were at my direction and personally dictated by me. I have reviewed the chart and agree that the record accurately reflects my personal performance of the history, physical exam, discussion and plan. documented in this encounter [facility] Work Phone: 07-24-2023 Instructions Sal Henson MA [...] of your visit. documented in this encounter [facility] Work Phone: 04-08-2023 History of Present illness [...] with 2ml of 2 % lidocaine (Code 63800 RT) Procedure, treatment alternatives, risks and benefits [...] evaluation. 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 documented in this encounter [facility] 01-14-2023 History of Present illness Narrative Karen [...] Obesity (BMI 30.0-34.9) documented in this encounter [facility] Work Phone: 01-14-2023 Instructions Lupe Burns LPN [...] up per routine documented in this encounter [facility] Work Phone: 12-31-2022 Progress note Note Date/Time December 31, 2022 10:25am [place] [address] Cardiology Progress Note Signed Patient: Emmanuel Jiménez MR#: [id number] : 1940 Acct:[id number] Age/Sex: 82 / M Adm Date: 3 Loc: Room: [address] [place] [address] Type: ADM IN Attending Dr: Katie Osborne [...] % (Auto) 61.2 Lymph % (Auto) 27.7 [place] % (Auto) 8.9 Eos % (Auto) 1.6 Baso % (Auto) 0.6 Nucleat RBC Rel Count 0.0 Neut # (Auto) 4.1 Lymph # (Auto) 1.9 [place] # (Auto) 0.6 Eos # (Auto) 0.1 Baso # (Auto) 0.0 PHA Creatinine Clear Sodium Potassium Chloride Carbon Dioxide Anion Gap BUN Creatinine Est GFR (CKD-EPI) Glucose POC Glucose 206 183 Calcium Magnesium 12/31/22 06:36 Corrected WBC Uncorrected WBC Count RBC Hgb Hct MCV MCH MCHC RDW Plt Count MPV Neut % (Auto) Lymph % (Auto) [place] % (Auto) Eos % (Auto) Baso % (Auto) Nucleat RBC Rel Count Neut # (Auto) Lymph # (Auto) [place] # (Auto) Eos # (Auto) Baso # [...] clinic as scheduled. Follow-up with his primary inhalation therapist Dr. Hugo Moser henceforth Documented By: Ignacio Issa MD [id number] Signed By: <Electronically signed by MD Ignacio Issa> 12/31/22 1033 [facility] Work Phone: 1(131) 566-448210-31-2023 Progress note Author Katie Osborne [facility] December 30, 2022 2:12pm Note Date/Time December 30, 2022 2 :12pm [facility] [address] [place] [address] Hospitalist Progress Note Signed Patient: Emmanuel Jiménez MR#: [id number] : 1940 Acct:[id number] Age/Sex: 82 / M Adm Date: 3 Loc: Room: [address] [place] [address] Type: ADM IN Attending Dr: Katie Osborne MD Copies to: ~ Date of Service: 12/30/2022 Subjective Subjective Narrative: Patient was seen and evaluated at bedside this morning. hospital monitor was reviewed, patient continued to have [...] Plan: ? Patient's baseline is unknown, at [place] his creatinine is 1.6, today here it is 1.4 ? Patient did receive atropine at [place], his heart rate has been improved while [...] <Electronically signed by Katie Osborne MD> 12/30/22 1972 [facility] Work Phone: 1(959) 266-140510-30-2023 Progress note Author Ignacio Issa [facility] December 29, 2022 2:16pm Note Date/Time December 29, 2022 2 :16pm [facility] [address] [place] [address] Cardiology Progress Note Signed Patient: Emmanuel Jiménez MR#: [id number] : 1940 Acct:[id number] Age/Sex: 82 / M Adm Date: 3 Loc: Room: [address] [place] [address] Type: ADM IN Attending Dr: Katie Osborne [...] block. Intermittently he is conducting in a [id number]. No observed manifestations of complete heart block. [...] % (Auto) 48.1 Lymph % (Auto) 41.3 [place] % (Auto) 8.4 Eos % (Auto) 1.4 Baso % (Auto) 0.8 Nucleat RBC Rel Count 0.1 Neut # (Auto) 3.6 Lymph # (Auto) 3.1 [place] # (Auto) 0.6 Eos # (Auto) 0.1 [...] MPV Neut % (Auto) Lymph % (Auto) [place] % (Auto) Eos % (Auto) Baso % (Auto) Nucleat RBC Rel Count Neut # (Auto) Lymph # (Auto) [place] # (Auto) Eos # (Auto) Baso # [...] implantation to be performed Thursday. Documented By: Ignacio Issa MD [id number] Signed By: <Electronically signed by MD Ignacio Issa> 12/29/22 [facility]6 [facility] Work Phone: 1(482) 779-647510-30-2023 Progress note Author Katie Osborne [facility] December 29, 2022 1:57pm Note Date/Time December 29, 2022 1 :57pm [facility] [address] [place] [address] Hospitalist Progress Note Signed Patient: Emmanuel Jiménez MR#: [id number] : 1940 Acct:[id number] Age/Sex: 82 / M Adm Date: 3 Loc: Room: [address] [place] [address] Type: ADM IN Attending Dr: Katie Osborne MD Copies to: ~ Date of Service: 12/29/2022 Subjective Subjective Narrative: Patient was seen and evaluated at bedside this morning. hospital monitor was reviewed, patient continued to have [...] Tablet PO 12/28/23 13:14 Not Given DAILY [facility] Enoxaparin Sodium 40 mg 12/29/22 10:00 Enoxaparin [...] Plan: ? Patient's baseline is unknown, at [place] his creatinine is 1.6, today here it is 1.4 ? Patient did receive atropine at [place], his heart rate has been improved while [...] <Electronically signed by Katie Osborne MD> 12/29/22 5908 [facility] Work Phone: 1(985) 173-678410-29-2023 Consult note Author Haylee Benedict [facility] December 28, 2022 7:25pm Note Date/Time December 28, 2022 7 :22pm [facility] [address] [place] [address] Cardiology Consult Note Signed Patient: Emmanuel Jiménez MR#: [id number] : 1940 Acct:[id number] Age/Sex: 82 / M Adm Date: 3 Loc: Room: [address] [place] [address] Type: ADM IN Attending Dr: Jarred Cline DO Copies to: Hugo Moser Jr, DO MD Jarred More, DO~ Cardiology HPI History of Present Illness Consult Date: 12/28/22 Reason for Consult: Symptomatic bradycardia HPI: Mr. Jmiénez is a 82 year old male with [...] negative unless noted below or in HPI [facility] Social History Smoking Status: Never smoker Meds [...] <Electronically signed by Haylee Benedict MD> 12/28/221924 [facility] Work Phone: 1(290) 922-647910-29-2023 History and physical note Author Jarred Cline [facility] December 28, 2022 1:36pm Note Date/Time December 28, 2022 1 :21pm [facility] [address] [place] [address] Hospitalist H&P Signed Patient: Emmanuel Jiménez MR#: [id number] : 1940 Acct:[id number] Age/Sex: 82 / M Adm Date: 3 Loc: 3T Room: [address] [place] [address] Type: ADM IN Attending Dr: Jarred Cline DO Copies to: Hugo Moser Jr, DO Jarred Cline, ~ HPI DATE OF EXAMINATION: 12/28/22 CHIEF COMPLAINT: low heart rate HISTORY OF PRESENT ILLNESS: Mr Jiménez is an 82-year-old male with past medical history of diabetes and hypertension who presents hospital today with chief complaint of low heart rate. He was transferred here from [facility], he has been feeling exertional dyspnea [...] to the emergency room. He went to [place] ER was then transferred back here due to there being no cardiology services at [place]. Patient denies any cough with his shortness [...] Plan: ? Patient's baseline is unknown, at [place] his creatinine is 1.6, today here it is 1.4 ? Likely secondary to decreased perfusion from bradycardia ? Patient did receive atropine at [place], his heart rate has been improved while [...] <Electronically signed by Jarred Cline DO> 12/28/22 9137 [facility] Work Phone: Discharge summary Author Katie Osborne [facility] December 31, 2022 12:42pm Note Date/Time December 31, 2022 1 2:43pm [facility] [address] [place] [address] Discharge Summary Signed Patient: Emmanuel Jiménez MR#: [id number] : 1940 Acct:[id number] Age/Sex: 82 / M Adm Date: 3 Loc: Room: [address] [place] [address]: Katie Osborne MD Copies to: [...] heart rate. He was transferred here from [facility], he has been feeling exertional dyspnea [...] Procedures p OR Pacemaker Insertion(Not Applicable) - Ignacio Issa MD Diagnostic Studies Completed and Pending [...] % (Auto) 61.2, Lymph % (Auto) 27.7, [place] % (Auto) 8.9, Eos % (Auto) 1.6, Baso % (Auto) 0.6, Nucleat RBC Rel Count 0.0, Neut # (Auto) 4.1, Lymph # (Auto) 1.9, [place] # (Auto) 0.6, Eos # (Auto) 0.1, [...] with nurse for incision check in the [facility] Office on - we will call you. 2. Chest x-ray to be done the same day as your device check at [facility] 04/15/2023. 3. Pacemaker/ICD clinic appointment at [facility] on 04/15/2023 at 11:00am . 4. Office [...] signed by Katie Osborne MD> 12/31/22 1242 [facility] Work Phone: Evaluation note* Diagnosis Onset Date Resolution Status ZAC (acute kidney injury) ac luke Diabetes mellitus acute HTN (hypertension) acute Mobitz type 2 second degree AV block acute [facility] Work Phone: Evaluation note* Diagnosis AV block, Mobitz II Mobitz (type) II atrioventricular block Pacemaker Cardiac pacemaker in situ Obesity (BMI 30.0-34.9) documented in this encounter [facility] Work Phone: Evaluation note* Diagnosis Acute pain of right shoulder Rotator cuff arthropathy, right Arthritis of right acromioclavicular joint documented in this encounter [facility] HealthcareEvaluation noteNo assessment information availableSelect [facility] [place] Work Phone: Evaluation note* Diagnosis Non-ischemic cardiomyopathy (Multi)- Primary Other primary cardiomyopathies AV block, Mobitz II Mobitz (type) II atrioventricular block Pacemaker Cardiac pacemaker in situ Mixed hyperlipidemia BMI 30.0-30.9,adult documented in this encounter [facility] Work Phone: Evaluation note* Diagnosis Type 2 diabetes mell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, without long-term current use of insulin (HCC) ([facility])- Primary Type 2 diabetes mellitus with hyperglycemia, without long-term current use of insulin ([facility]) documented in this encounter [facility] HealthcareEvaluation note* Diagnosis Type 2 diabetes mellitus without complication, unspecified whether terminal make up operator insulin use ([facility])- Primary Pain due to onychomycosis of toenails of both feet [facility] Additional Instructions DISCHARGE INSTRUCTIONS FOR [...] with nurse for incision check in the [facility] Office on - 01/08/2023 at 1:30pm. 2. Chest x-ray to be done the same day as your device check at [facility] 04/15/2023. 3. Pacemaker/ICD clinic appointment at [facility] on 04/15/2023 at 11:00am . 4. Office visit with Dr. Moser. [][facility] [place] Work Phone: Reason for referral (narrative)* Consultation (Routine) - Authorized Specialty Diagnoses / Procedures Referred By Milan stallings Referred To Contact Cardiology Diagnoses AV block, Mobitz II Pacemaker Procedures Follow Up In Cardiology Ignacio Issa MD [address] [place] [address], [address] [address] Ignacio Issa MD [address] [place] [address] 2, [address] [address] Referral ID Status Reason Start Date Expiration Date V isits Requested Visits Authorized [id number] Authorized 01/14/2023 01/14/2024 1 1 [facility] Work Phone: Reason for referral (narrative)* Consultation (Routine) - Authorized Specialty Diagnoses / Procedures Referred By Milan stallings Referred To Contact Cardiology Diagnoses AV block, Mobitz II Procedures Follow Up In Cardiology Ignacio Issa MD [address] [facility] [address] [place] [address] Stephanie Steward MD [address] [facility] [address] [place] [address] Referral ID Status Reason Start Date Expiration Date V isits Requested Visits Authorized [id number] Authorized 07/24/2023 07/23/2024 1 1 [facility] Work Phone: Summary Purpose Family History No [...] Specialty Diagnoses / Procedures Referred By Milan stallings Referred To Contact Orthopaedic Surgery Diagnoses Arthritis of right acromioclavicular joint Procedures M Inj/Asp: R acromioclavicular Trip Brown PA [address] [facility] [address] [place] [address] Referral ID Status Reason Start Date Expiration Date V isits Requested Visits Authorized [id number] Pending Review 04/08/2023 10/05/2023 1 1 Specialty Diagnoses / Procedures Referred By Milan stallings Referred To Contact Orthopaedic Surgery Diagnoses Rotator cuff arthropathy, right Procedures L Inj/Asp: R subacromial bursa Trip Brown PA [address] [place] [address] Referral ID Status Reason Start Date Expiration Date V isits Requested Visits Authorized [id number] Authorized 04/08/2023 10/05/2023 1 1 Additional Source Comments (unrecognized sect ion and content) No Status Records FoundNo Status Records FoundNo Status Records FoundNo Status Records Found INFORMATION SOURCE (unrecogn ized section and content) DATE CREATED AUTHOR 05/25/2022 [facility] DATE CREATED AUTHOR AUTHOR'S ORGANIZ ATION 11/17/2023 [facility] tals Ambulatory DATE CREATED AUTHOR AUTHOR'S ORGANIZ ATION 12/12/2023 [facility] EPIC DATE CREATED AUTHOR AUTHOR'S ORGANIZ ATION 01/02/2024 [facility] Care Teams (unrecognized sec tion and content) Team Status: Active Member Role Status Dates Hugo Moser JR DO Primary Care Provider Active Team Status: Inactive Member Role Status Dates Hugo Moser JR DO Primary Care Provider Active Jarred Cline DO Admit Provider Active Katie Osborne MD Attending Provider Active Ana Maria Prakash RN Other Provider Active Aretha Chaparro DO Other Provider Active Stephanie Steward MD Other Provider Active Ignacio Issa MD Other Provider Active Farzana Escalera MD Other Provider Active Hugo Johnson MD Other Provider Active Sangita Salas APRN Other Provider Active Natacha Padron MD Other Provider Active Kang Douglas MD Other Provider Active Jordan Bolanos MD Other Provider Active Nikia Woodward , [facility] Other Provider Active Lauren Steiner MD Other Provider Active Team Status: Inactive Member Role Status Dates Hugo Moser JR DO Primary Care Provider Active Ignacio Issa MD Attending Provider Active Pump Press Operator Relationship Specialty Start Date End Date Hugo Moser DO [address] [place] [id number] PCP - General Internal Medicine 12/31/22 Pump Press Operator Relationship Specialty Start Date End Date Hugo Moser MD [address] [place] [address] [address] [place], [place] [phone] PCP - General Internal Medicine 04/08/23 Team Status: Inactive Member Role Status Dates Hugo Moser JR DO Primary Care Provider Active Start: April 15, 2023 End: April 15, 2023 Ignacio Issa MD Referring Provider Active Start: April 15, 2023 End: April 15, 2023 Sangita Salas APRN Attending Provider Active Start: April 15, 2023 End: April 15, 2023 Pump Press Operator Relationship Specialty Start Date End Date Hugo Moser DO PCP - General Internal Medicine 12/31/22 Team Status: Inactive Member Role Status Dates Hugo Moser JR DO Primary Care Provider Active Start: October 16, 2023 End: October 16, 2023 Ignacio Issa MD Attending Provider Active Start: October 16, 2023 End: October 16, 2023 Pump Press Operator Relationship Specialty Start Date End Date Hugo Moser MD [address] [place] [address] [place], [place] [id number] PCP - General Internal Medicine 04/08/23 Pump Press Operator Relationship Specialty Start Date End Date Hugo Moser MD [address] [place] [address] [place], [place] [phone] PCP - General Internal Medicine 04/08/23 Pump Press Operator Relationship Specialty Start Date End Date Hugo Moser MD [address] [facility] [place], [place] [phone] PCP - General Internal Medicine 04/08/23 Pump Press Operator Relationship Specialty Start Date End Date Hugo Moser MD [facility] [place], [place] [phone] PCP - General Internal Medicine 04/08/23 Reason for Visit (unrecogniz ed section and content) Reason Comments Follow-up Swelling and pain at pacemaker site.Placed 2 weeks ago. Specialty Diagnoses / Procedures Referred By Contac t Referred To Contact Cardiology Diagnoses AV block, Mobitz II Pacemaker Procedures Follow Up In Cardiology Ignacio Issa MD [address] [place] [address] 2, [place] [phone] Referral ID Status Reason Start Date Expiration Date V isits Requested Visits Authorized [id number] Authorized 01/14/2023 01/14/2024 1 1 Reason Comments Pain Reason Comments Follow-up 6 month Specialty Diagnoses / Procedures Referred By Contac t Referred To Contact Cardiology Diagnoses AV block, Mobitz II Pacemaker Procedures Follow Up In Cardiology Ignacio Issa MD [address] [facility] [address], [place] [phone] Ignacio Issa MD [address] [place] [address] 2, [place] [phone] Referral ID Status Reason Start Date Expiration Date V isits Requested Visits Authorized [id number] Authorized 01/14/2023 01/14/2024 1 1 Reason Comments Diabetes Reason Comments DM Foot Care Dm nail care Goals (unrecognized section and content) Goals may [...] BE BASED ON THE PRIMARY CLINICAL RECORDS. [employer] provides no warranty or guarantee of the accuracy or completeness of information in this document.
[2024-01-06 06:53] LABS: Basophils Absolute Auto 0.1 10^3/uL (0.0-0.1); Basophils Percent Auto 0.8 % (0.2-2.0); Eosinophils Absolute Auto 0.2 10^3/uL (0.0-0.7); Eosinophils Percent Auto 3.1 % (0.9-7.0); Hematocrit 41.1 % (42.0-54.0); Hemoglobin 13.5 g/dL (14.0-18.0); Immature Granulocytes Abs Auto 0.03 10^3/uL (0.00-0.03); Immature Granulocytes Pct Auto 0.5 % (0.0-0.5); Lymphocytes Absolute Auto 2.8 10^3/uL (1.2-3.8); Lymphocytes Percent Auto 44.4 % (20.5-60.0); Mean Corpuscular HGB Conc 32.8 g/dL (29.9-35.2); Mean Corpuscular Hemoglobin 30.5 pg (25.9-34.0); Mean Platelet Volume 8.7 fL (9.5-13.5); Monocytes Absolute Auto 0.5 10^3/uL (0.3-0.8); Monocytes Percent Auto 8.3 % (1.7-12.0); Neutrophils Absolute Auto 2.7 10^3/uL (1.4-6.5); Neutrophils Percent Auto 42.9 % (43.0-75.0); Platelet Count 156 10^3/uL (150-450); Red Blood Count 4.42 10^6/uL (4.70-6.10); Red Cell Distribution Width 13.9 % (11.0-15.0); White Blood Count 6.4 10^3/uL (4.0-11.0)
[2024-01-06 07:13] LABS: Alanine Aminotransferase 38 U/L (16-63); Albumin Globulin Ratio 0.9; Albumin Level 3.4 g/dL (3.4-5.0); Alkaline Phosphatase 121 U/L (46-116); Aspartate Amino Transferase 31 U/L (15-37); Bilirubin Direct 0.2 mg/dL (0.0-0.2); Bilirubin Total 0.7 mg/dL (0.2-1.0); Carbon Dioxide 23.5 mmol/L (21.0-32.0); Chloride 105 mmol/L (98-107); Chol HDL Ratio 2.3; Cholesterol 80 mg/dL (<=200); Estimated GFR (African America 54 (>=60 mL/min/1.73m^2); Estimated GFR (Non-African Ame 44 (>=60 mL/min/1.73m^2); Globulin 3.9 g/dL; HDL Cholesterol 35 mg/dL (40-60); Potassium 4.5 mmol/L (3.5-5.1); Sodium 140 mmol/L (136-145); Total Protein 7.3 g/dL (6.4-8.2); Triglycerides 103 mg/dL (<=150); VLDL CHOLESTEROL 20.6 mg/dL
[2024-01-06 07:30] LABS: Estimated Average Glucose 235 mg/dL; Glycohemoglobin A1C 9.8 % (4.5-6.2)
== END 2024-01-06 06:39 | disposition home or self-care (01) ==
LOC: LAB 06:38
PROVIDERS: PCP Internal Medicine; Visit Provider Internal Medicine
DX: E11.65 Type 2 diabetes mellitus with hyperglycemia (principal); N18.31 Chronic kidney disease, stage 3a; I50.32 Chronic diastolic (congestive) heart failure; E78.5 Hyperlipidemia, unspecified; Z79.899 Other long term (current) drug therapy
CPT/HCPCS: 36415; 80051; 80061; 80076; 82565; 83036; 83880; 84520; 85025

== ENCOUNTER 2024-02-29 08:17 | Emergency (ER) | payer MEDICARE, SELFPAY ==
[2024-02-29 08:21] VITALS: BP 143/77; PULSE 98; TEMP 36.7; O2SAT 96; BMI 27.4
--- NOTE | 2024-02-29 08:24 | XR_ITS ---
[address] [address] Patient Name: JOSE MIGUEL ANDERSON MRN: [id number] date: 1940 Sex: M Assigned Patient Location: ER Current Patient Location: ER Accession/Order Number: [id number] Exam Date: 02/29/2024 08:36 Report Date: 02/29/2024 08:57 At the request of: CRUZ BEAR Procedure: XR ribs LT min 3V w CXR1V EXAMINATION: XR ribs LT min 3V w CXR1V HISTORY: pain ; left lateral rib pain since falling 2 days ago COMPARISON: XR chest 12/19/2022 FINDINGS: LUNGS: Chronic elevated left hemidiaphragm. Mild opacities within the left retrocardiac region. PLEURA: No pneumothorax, effusion, or pleural thickening. MEDIASTINUM: No visible mass or adenopathy. CARDIAC: No cardiomegaly or cardiac silhouette abnormality. RIBS: No appreciable fracture. OTHER: Negative. XR/XR ribs LT min 3V w CXR1V IMPRESSION: 1. No appreciable rib fracture. 2. Stable elevated left hemidiaphragm. 3. Mild left lower lobe atelectasis versus infiltrates. Electronically authenticated by: CONSTANTINE FLOWER Date: 02/29/2024 08:57
--- OUTSIDE RECORDS SUMMARY | 2024-02-29 08:35 | XMS_ITS | CCD ---
Author Organization [facility] CliniSyde Care Team Providers Care Director Ehs Name Role Phone SHANTI, DR ARIAS Admitting Unavailable VALONE, DR ARIAS Attending Unavailable VALONE, DR ARIAS Primary Care Unavailable VALONE, DR ARIAS Consulting Unavailable VALONE, DR ARIAS Admitting Unavailable VALONE, DR ARIAS Attending Unavailable VALONE, DR ARIAS Primary Care Unavailable VALONE, DR ARIAS Consulting Unavailable VALONE, DR ARIAS Admitting Unavailable VALONE, DR ARIAS Attending Unavailable VALONE, DR ARIAS Primary Care Unavailable VALONE, DR ARIAS Consulting Unavailable Karieone, JR Hugo Ferris Primary Care Provider DO Jarred Clnie Admit Provider MD Katie Osborne Attending Provider SULEIMAN Prakash Other Provider Unavailable DO Aretha Chaparro Other Provider [phone] MD Stephanie Steward Other Provider [phone] MD Henrry Issa Other Provider [phone] MD Farzana Escalera Other Provider [phone] MD Hugo Johnson Other Provider BHAVIN Gregorio Other Provider MD Natacha Padron Other Provider MD Kang Douglas Other Provider MD Jordan Bolanos Other Provider Crissy [facility] Nikia Ferris Other Provider [phone] MD Lauren Steiner Other Provider [phone] JR Hugo Moser Primary Care Provider [phone] DO Jarred Cline Admit Provider MD Katie Osborne Attending Provider SULEIMAN Prakash Other Provider Unavailable DO Aretha Chaparro Other Provider MD Stephanie Steward Other Provider MD Henrry Issa Other Provider MD Farzana Escalera Other Provider MD Hugo Johnson Other Provider BHAVIN Gregorio Other Provider MD Natacha Padron Other Provider MD Kang Douglas Other Provider MD Jordan Bolanos Other Provider Crissy [facility] Nikia Ferris Other Provider MD Lauren Steiner Other Provider MD Henrry Issa Attending Provider Hugo Moser DO Primary Care Provider Hugo Moser MD Primary Care Provider JR Hugo Moser Primary Care Provider MD Henrry Issa Referring Provider BHAVIN Gregorio Attending Provider Hugo Moser DO Primary Care Provider JR Hugo Moser Primary Care Provider MD Henrry Issa Attending Provider HENRRY ISSA Referring Unavailable HUGO MOSER Primary Care Unavailable HENRRY ISSA Attending Unavailable HUGO MOSER Primary Care Unavailable HENRRY ISSA Referring Unavailable HENRRY ISSA Attending Unavailable HENRRY ISSA Referring Unavailable HUGO MOSER Primary Care Unavailable Hugo Moser Primary Care Unavailable Sangita Salas Admitting Unavailable Sangita Salas Attending Unavailable Henrry Issa Referring Unavail able Henrry Issa Admitting Unavail able Henrry Issa Attending Unavail able Hugo Moser Primary Care Unavailable Henrry Issa Admitting Unavail able Henrry Issa Attending Unavail able Hugo Moser Primary Care Unavailable Stephanie Steward Admitting Unavailable Stephanie Steward Attending Unavailable Hugo Moser Primary Care Unavailable TRIP BROWN Attending Unavailable TRIP BROWN Referring Unavailable JR. NASREEN, GINI Griffin Attending Unavaila rani CÁRDENAS JR., GINI Griffin Attending Unavaila VEDA Soto Attending Unavailable HUGO MOSER Referring Unavailable KENNEDY CAMARA Attending Unavailable VEDA ROME Attending Unavailable JR. NASREEN, GINI Griffin Attending Unavaila rani Allergies Allergy Classification Reported Allergen(s) Allergy Type Date of Onset Reaction(s) Facility (1 source) ALLERGIES NOT ON FILE; Translations: [ALLERGIES NOT ON FILE] Propensity to adverse reactions (disorder) [facility] 3 Repository Medications Current Medications Medication Drug Class(es) Dates Sig (Normalized) Sig (Original) acarbose 100 mg oral tablet (16 sources) alpha-Glucosidase Inhibitor Start: 12-28-2022 take 1 tablet by mouth once daily Acarbose 100 mg tablet Active 100 MG PO Daily December 27, 2022 11:00pm Start: 09-12-2022 take 1 tablet by dannie th three times daily acarbose (Precose) 100 mg tablet Take 1 tablet (100 mg) by mouth 3 times daily (morning, midday, late afternoon). 09/12/2022 Active End: 12-03-2023 acarbose (Precose) 100 MG ta blet 2 (two) times a day 12/03/2023 Discontinued clindamycin 300 mg oral capsule (5 sources) Lincosamide Antibacterial Start: 12-31-2022 take 2 capsules by mouth three times daily Clindamycin Hcl 300 mg capsule Active 600 MG PO Three times daily 12 December 30, 2022 11:00pm Start: 12-31-2022 take 600 mg by mouth three times daily Clindamycin Hcl Active 600 MG PO Three times daily 12 December 31, 2022 12:00am Docusate (5 sources) Docusate Calcium (STOOL SOFTENER PO) Take by mouth Active empagliflozin 25 mg oral tablet (20 sources) Sodium-Glucose Cotransporter 2 Inhibitor Start: 11-11-19 take 1 tablet by mouth in the morning empagliflozin (Jardiance) 25 MG Indications: Type 2 diabetes mell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, without long-term current use of insulin (HCC) ([facility]) Take 1 tablet (25 mg) by mouth in the morning. 30 tablet 3 12/03/2023 Active End: 12-03-2023 take 12.5 mg by mouth in the morning Jardiance 25 MG Take 12.5 mg by mouth in the morning. 12/03/2023 Discontinued ezetimibe 10 mg oral tablet (20 sources) Dietary Cholesterol Absorption Inhibitor Start: 12-16-2022 take 1 tablet by mouth once daily Ezetimibe 10 mg tablet Active 10 MG PO Daily December 27, 2022 11:00pm Start: 12-16-2022 take 0.5 tablet by m [...] mouth once daily. Active Finerenone (KERENDIA PO) (14 sources) Finerenone (KERE NDIA PO) Take 20 mg by mouth Active Finerenone (KERE NDIA PO) Take by mouth Active Finerenone (KERE NDIA PO) Take by mouth 0 Active 3 ml insulin degludec 100 unt/ml pen injector (3 sources) Insulin Analog Start: 01-18-2024 insulin deglud ec (Tresiba FlexTouch) 100 UNIT/ML injection Indications: Type 2 diabetes mellitus with hyperglycemia, without long-term current use of insulin ([facility]) Inject 12 Units under the skin Daily 15 mL 3 01/18/2024 Active metFORMIN hydrochloride 500 mg oral tablet (15 sources) Biguanide Start: 06-25-2023 End: 12-03-2023 take [...] SITagliptin 100 mg extended release oral tablet (10 sources) Biguanide, Dipeptidyl Peptidase 4 Inhibitor Start: 12-23-2022 End: 07-24-2023 take 1 tablet by mouth once daily Sitagliptin Phos-Metformin (Janumet Xr) 100-1,000 mg tablet, ER multiphase 24 hr Active 100 - 1000 TAB PO Daily December 27, 2022 11:00pm End: 12-01-2023 take 1 tablet by mouth [...] 1 (one) time per week. 05/18/2023 Active pen needle 33G x 4 mm misc (5 sources) Start: 01-18-2024 pen needle 33G x 4 mm misc Indications: Type 2 diabetes mell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, without long-term current use of insulin (HCC) ([facility]) Injections subcutaneous daily 100 each 3 01/18/2024 Active rivaroxaban 20 mg oral tablet (9 sources) Factor Xa Inhibitor Start: 12-08-2022 End: 12-03-2023 Rivaroxaban (Xarelto) 20 mg tablet Active MG TABLET December 29, 2022 11:00pm rosuvastatin calcium 40 mg oral tablet (20 sources) HMG-CoA Reductase Inhibitor Start: 11-11-2022 take 1 tablet by mouth once daily Rosuvastatin 40 mg Tablet Active 40 MG PO Daily December 27, 2022 11:00pm sacubitril 24 mg / valsartan 26 mg oral tablet (13 sources) Angiotensin 2 Receptor Maria Victoria Start: 12-28-2022 End: 12-03-2023 take 1 tablet by mouth once daily Sacubitril-Valsar zavala (Entresto) 24-26 mg Tablet Active 1 TAB PO Daily December 27, 2022 11:00pm End: 12-01-2023 Sacubitril-Valsartan (ENTRES TO PO) Take [...] a day. 05/12/2022 07/24/2023 Discontinued (Therapy completed) 3 ml insulin glargine 100 unt/ml pen injector (2 sources) Insulin Analog Start: 4 End: 4 insulin glargine (Lantus SoloStar) 100 UNIT/ML pen Indications: Type 2 diabetes mell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, without long-term current use of insulin (HCC) ([facility]) Inject 15 Units under the skin Daily 15 mL 3 01/18/2024 01/18/2024 Discontinued losartan potassium 25 mg oral tablet (1 [...] (one) time per week 05/18/2023 12/03/2023 Discontinued Semaglutide-Weight Management 0.5 MG/0.5ML solution auto-injector (2 sources) End: 4 Semaglutide-Weight Management 0.5 MG/0.5ML solution auto-injector Inject 0.6 mg under the skin 12/03/2023 Discontinued Problems Active Problems Problem Classification Problem Date Documented Date Episodic/Chronic Acute and unspecified renal failure (7 sources) Acute renal failure syndrome; Translations: [Acute kidney failure, unspecified] 12-28-2022 Episodic Comment on above: Problem List clean-u p per request of Phys. EHR Cmte Cardiac dysrhythmias (10 sources) Bradycardia; Translations: [Bradycardia, unspecified] 12-31-2022 Episodic Comment on above: Problem List clean-u p per request of Phys. EHR Cmte Conduction disorders (20 sources) Mobitz type II atrioventricular block; Translations: [Atrioventricular block, second degree] Onset: 3 12-29-2022 Chronic Comment on above: Problem List clean-u p per request of Phys. EHR Cmte Congestive heart failure; nonhypertensive (4 sources) Chronic diastolic (congestive) heart failure; Translations: [CHRONIC DIASTOLIC HEART FAILURE] Onset: 3 Chronic Diabetes mellitus with complications (20 sources) Type 2 diabetes mellitus with hyperglycemia; Translations: [Type 2 diabetes mellitus with diabetic chronic kidney disease] Onset: 2 12-03-2023 Chronic Diabetes mellitus without complication (12 sources) Diabetes mellitus; Translations: [Type 2 diabetes mellitus without complications] Onset: 3 12-28-2022 Chronic Comment on above: Problem List clean-u p per request of Phys. EHR Cmte Disorders of lipid metabolism (18 sources) Mixed hyperlipidemia; Translations: [Mixed hyperlipidemia] Onset: 3 01-14-2023 Chronic Essential hypertension (20 sources) Hypertensive disorder; Translations: [Essential (primary) hypertension] Onset: 4 12-28-2022 Chronic Comment on above: Problem List clean-u p per request of Phys. EHR Cmte Hypertension with complications and secondary hypertension (1 source) Hypertensive chronic kidney disease with stage 1 through stage 4 chronic kidney disease, or unspecified chronic kidney disease; Translations: [HTN CKD W/STAGE 1-4 CKD/UNS CKD] Onset: 2 Chronic Mycoses (2 sources) Pain in toe; Translations: [Tinea unguium] 12-06-2023 Episodic Osteoarthritis (16 sources) Arthritis of right acromioclavicular joint; Translations: [Primary osteoarthritis, right shoulder] Onset: 4 04-08-2023 Chronic Other aftercare (1 source) Other prison (current) drug therapy; Translations: [OTH LONGTERM 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 THERAPY] Onset: 3 Episodic Other non-traumatic joint disorders (3 sources) Rotator cuff arthropathy of right shoulder; Translations: [...] caused by tuberculosis or sexually transmitted disease) (18 sources) Cardiomyopathy; Translations: [Other cardiomyopathies] Onset: 3 [...] Da te Episodic/Chronic Phlebitis; thrombophlebitis and thromboembolism (15 sources) Deep venous thrombosis; Translations: [Acute embolism and thrombosis of unspecified deep veins of unspecified lower extremity] Onset: 01-14-2023 01-14-2023 Episodic Unclassified (2 sources) Onset: 01-14-2023 01-14-2023 Results Test Name Value Interpretation Reference Range Facility HbA1c (Bld) [Mass fraction]o n 01-18-2024 Interpretation and review of laboratory results Abnormal [facility] Laboratory - Hematology and Cell countson 01-18-2024 HbA1c (Bld) [Mass fraction] 10.4 % [facility] XR chest 2V*on 04-15-2023 XR chest 2V* [facility] [place] [address] XRay Report Signed Patient: Emmanuel Jiménez MR#: [id number] 48 : 1940 Acct:[id number] Age/Sex: 82 / M ADM Date: 04/15/23 Loc: [facility] Room: Type: [facility] Attending Dr: Sangita Salas PRODUCTION MATERIAL COORDINATOR Copies to: BHAVIN Beasley MD Ordering Provider: [...] M.D.04/15/2023 2:33 PM Dictation Location: [place] [address] Transcribed By: ROSSY 04/15/23 1433 Dictated By: Niki Scott MD 04/15/23 1431 Signed By: 04/15/23 1433 Normal The Replaced By [facility] L Inj/Asp: R subacromial bur [...] with 2ml of 2 % lidocaine (Code 62953 RT) Procedure, treatment alternatives, risks and benefits explained, specific risks discussed. Consent was given by the patient. [facility] M Inj/Asp: R acromioclavicul garrett [...] and draped in the usual sterile fashion. [facility] Basophils Auto (Bld) [#/Vol] Ordered By: Jarred Cline on 12-31-2022 Basophils (Bld) [#/Vol] 0.0 10*3/uL 0.0-0.2 [facility] Basophils/100 WBC Auto (Bld) Ordered By: Jarred Cline on 12-31-2022 Basophils/100 WBC (Bld) 0.6 % . [facility] Calcium [Mass/volume] in Ser um or PlasmaOrdered By: Jarred Cline on 12-31-2022 Calcium [Mass/Vol] 8.9 mg/dL 8.6-10.3 [facility] Carbon dioxide, total [Moles /volume] in Serum or PlasmaOrdered By: Jarred Cline on 12-31-2022 CO2 [Moles/Vol] 22.9 mmol/L 21.0-31.0 [facility] Chloride [Moles/volume] in S chiquis or PlasmaOrdered By: Jarred Cline on 12-31-2022 Chloride [Moles/Vol] 106 mmol/L 98-107 [facility] Creatinine [Mass/volume] in Serum or PlasmaOrdered By: Jarred Cline on 12-31-2022 Creatinine [Mass/Vol] 1.20 mg/dL 0.70-1.30 [facility] Eosinophils Auto (Bld) [#/Vo l]Ordered By: Jarred Cline on 12-31-2022 Eosinophils (Bld) [#/Vol] 0.1 10*3/uL 0.0-0.45 [facility] Eosinophils/100 WBC Auto (Bl d)Ordered By: Jarred Cline on 12-31-2022 Eosinophils/100 WBC (Bld) 1.6 % . [facility] Erythrocyte distribution wid th Auto (RBC) [Ratio]Ordered By: Jarred Cline on 12-31-2022 Erythrocyte distribution width (RBC) [Ratio] 14.9 % 12.0-14.8 [facility] Glucose [Mass/volume] in Ser um or PlasmaOrdered By: Jarred Cline on 12-31-2022 Glucose [Mass/Vol] 175 mg/dL 70-100 [facility] Comment on above: ADA recommended refe rence rangeRandom Glucose Reference Range is dependent on time and content of last meal. Glucose of more than 200 mg/dL in a nonstressed, ambulatory subject supports the diagnosis of Diabetes Mellitus. Hematocrit Auto (Bld) [Volum e fraction]Ordered By: Jarred Cline on 12-31-2022 Hematocrit (Bld) [Volume fraction] 39.1 % 38.8-50.0 [facility] Hemoglobin [Mass/volume] in BloodOrdered By: Jarred Cline on 12-31-2022 Hemoglobin (Bld) [Mass/Vol] 13.0 g/dL 13.0-17.0 [facility] Leukocytes [#/volume] correc adela for nucleated erythrocytes in Blood by Automated counOrdered By: Jarred Cline on 12-31-2022 WBC corrected for nucl RBC Auto (Bld) [#/Vol] 6.7 10*3/uL 4.1-10.5 [facility] Lymphocytes Auto (Bld) [#/Vo l]Ordered By: Jarred Cline on 12-31-2022 Lymphocytes (Bld) [#/Vol] 1.9 10*3/uL 1.00-4.8 [facility] Lymphocytes/100 WBC Auto (Bl d)Ordered By: Jarred Cline on 12-31-2022 Lymphocytes/100 WBC (Bld) 27.7 % . [facility] MCH Auto (RBC) [Entitic mass ]Ordered By: Jarred Cline on 12-31-2022 MCH (RBC) [Entitic mass] 30.5 pg 27.5-35.2 [facility] MCHC Auto (RBC) [Mass/Vol]Or dered By: Jarred Cline on 12-31-2022 MCHC (RBC) [Mass/Vol] 33.3 g/dL 32.5-35.6 [facility] MCV Auto (RBC) [Entitic vol] Ordered By: Jarred Cline on 12-31-2022 MCV (RBC) [Entitic vol] 91.5 fL 83.5-101 [facility] Magnesium [Mass/volume] in S chiquis or PlasmaOrdered By: Jarred Cline on 12-31-2022 Magnesium [Mass/Vol] 2.1 mg/dL 1.9-2.7 [facility] Monocytes Auto (Bld) [#/Vol] Ordered By: Jarred Cline on 12-31-2022 Monocytes (Bld) [#/Vol] 0.6 10*3/uL 0.0-0.8 [facility] Monocytes/100 WBC Auto (Bld) Ordered By: Jarred Cline on 12-31-2022 Monocytes/100 WBC (Bld) 8.9 % . [facility] Neutrophils Auto (Bld) [#/Vo l]Ordered By: Jarred Cline on 12-31-2022 Neutrophils (Bld) [#/Vol] 4.1 10*3/uL 1.8-7.7 [facility] Neutrophils/100 WBC Auto (Bl d)Ordered By: Jarred Cline on 12-31-2022 Neutrophils/100 WBC (Bld) 61.2 % . [facility] No Panel InformationOrdered By: Jarred Cline on 12-31-2022 Estimated GFR (CKD-EPI) > 60.0 mL/Min [facility] Creatinine Clearance (Chem 48.99 [facility] Nucleated erythrocytes [Pres ence] in Blood by Automated countOrdered By: Jarred Cline on 12-31-2022 Nucleated RBC Auto Ql (Bld) 0.0 /100{WBC} 0-0.5 [facility] Platelet mean volume Auto (B ld) [Entitic vol]Ordered By: Jarred Cline on 12-31-2022 Platelet mean volume (Bld) [Entitic vol] 7.2 fL 6.6-10.1 [facility] Platelets Auto (Bld) [#/Vol] Ordered By: Jarred Cline on 12-31-2022 Platelets (Bld) [#/Vol] 148 10*3/uL 150-450 [facility] Potassium [Moles/volume] in Serum or PlasmaOrdered By: Jarred Cline on 12-31-2022 Potassium [Moles/Vol] 4.1 mmol/L 3.5-5.1 [facility] RBC Auto (Bld) [#/Vol]Ordere d By: Jarred Cline on 12-31-2022 RBC (Bld) [#/Vol] 4.27 10*6/uL 3.90-5.60 [facility] Serum or plasma anion gap de terminationOrdered By: Jarred Cline on 12-31-2022 Anion gap [Moles/Vol] 12.2 mmol/L 6.0-15.0 [facility] Sodium [Moles/volume] in Ser um or PlasmaOrdered By: Jarred Cline on 12-31-2022 Sodium [Moles/Vol] 137 mmol/L 136-145 [facility] Urea nitrogen [Mass/volume] in Serum or PlasmaOrdered By: Jarred Cline on 12-31-2022 Urea nitrogen [Mass/Vol] 23 mg/dL 7-25 [facility] WBC Auto (Bld) [#/Vol]Ordere d By: Jarred Cline on 12-31-2022 WBC (Bld) [#/Vol] 6.7 10*3/uL 4.1-10.5 [facility] Activated partial thrombopla stin time (aPTT) in platelet poor plasma by coagulation aOrdered By: Henrry Issa on 12-30-2022 aPTT Coag (PPP) [Time] 30.2 s 25.1-36.5 [facility] Comment on above: A hematocrit value g reater than 55% may lead to inaccurate results in coagulation testing. Patients having hematocrit values >55% require a special collection tube for coagulation studies. Please contact the laboratory at [phone] for redraw instructions. Glucose Glucometer (dC) [M ass/Vol]Ordered By: Katie Osborne on 12-30-2022 Glucose [Mass/Vol] 183 mg/dL [facility] Comment on above: Random Glucose Refer ence Range is dependent on time and content of last meal. Glucose of more than 200 mg/dL in a nonstressed, ambulatory subject supports the diagnosis of Diabetes Mellitus. INR in Platelet poor plasma by Coagulation assayOrdered By: Henrry Issa on 12-30-2022 INR Coag (PPP) [Relative time] 1.1 {INR} [facility] Comment on above: INR Therapeutic Rang e [...] 3 - 4.5 Prothrombin time (PT)Ordered By: Henrry Issa on 12-30-2022 PT Coag (PPP) [Time] 13.1 s 9.0-12.9 [facility] Comment on above: A hematocrit value g reater than 55% may lead to inaccurate results in coagulation testing. Patients having hematocrit values >55% require a special collection tube for coagulation studies. Please contact the laboratory at [phone] for redraw instructions. Cholesterol [Mass/volume] in Serum or PlasmaOrdered By: Jarred Cline on 12-29-2022 Cholesterol [Mass/Vol] 96 mg/dL 140-200 [facility] Comment on above: Chol less than 200 m g/dl low riskChol 201-239 mg/dl borderline riskChol 240 mg/dl and greater high risk Cholesterol in LDL Calc [Mas s/Vol]Ordered By: Jarred Cline on 12-29-2022 Cholesterol in LDL [Mass/Vol] 40 mg/dL 0-100 [facility] Comment on above: LDL ATP III CLASSIFI CATIONLDL less than 100 mg/dL OptimalLDL 100-129 mg/dL Near or above optimalLDL 130-159 mg/dL Borderline highLDL 160-189 mg/dL HighLDL greater than 189 mg/dL Very high Cholesterol in VLDL Calc [Ma ss/Vol]Ordered By: Jarred Cline on 12-29-2022 Cholesterol in VLDL [Mass/Vol] 26 mg/dL [facility] Serum or plasma high density lipoprotein (HDL) cholesterol measurementOrdered By: Jarred Cline on 12-29-2022 Cholesterol in HDL [Mass/Vol] 30 mg/dL 23-92 [facility] Comment on above: HDL CHOL ATP-III CLA SSIFICATION Cardiovascular RiskHDL > or equal to 60 mg/dL LOWHDL < 40 mg/dL HIGH Serum or plasma total choles terol/high density lipoprotein (HDL) cholesterol mass ratOrdered By: Jarred Cline on 12-29-2022 Cholesterol.total/Chol esterol in HDL [Mass ratio] 3.2 {ratio} <5.0 [facility] Triglyceride [Mass/volume] i n Serum or PlasmaOrdered By: Jarred Cline on 12-29-2022 Triglyceride [Mass/Vol] 132 mg/dL 0-149 [facility] Comment on above: TRIG ATP III CLASSIF [...] from glycated hemoglobin (Bld) [Mass/Vol] 212 mg/dL [facility] Hemoglobin A1c percentageOrd ered By: Jarred Cline on 12-28-2022 HbA1c (Bld) [Mass fraction] 9.0 % 4.3-5.6 [facility] Comment on above: Increased risk for d iabetes: 5.7 - 6.4diabetes: >6.4glycemic control for adults with diabetes: <7.0 BNPon 05-19-2022 Natriuretic peptide B (Bld) [Mass/Vol] 74.0 pg/mL Normal <=1,800.0 [facility] Comment on above: Performed By: #### E LEC, BUN, BNP, LIVER, CREA #### [facility] [address] [place] [address] Dr. Brissa Ma BUNon 05-19-2022 Urea nitrogen [Mass/Vol] 41.0 mg/dL Critically high 7.0-18.0 [facility] Comment on above: Performed By: #### E LEC, BUN, BNP, LIVER, CREA #### [facility] [address] [place] [address] [address] Brissa Ma CBC AUTO DIFFon 05-19-2022 BASO # 0.1 103/ul Normal 0.0-0.1 [facility] Comment on above: Performed By: #### E LEC, BUN, BNP, LIVER, CREA #### [facility] [address] [place] [address] Dr. Brissa Ma Basophils/100 WBC (Bld) 0.8 % Normal 0.2-2.[address] [facility] Comment on above: Performed By: #### E LEC, BUN, BNP, LIVER, CREA #### [facility] [address] [place] [address] Dr. Brissa Ma EO # 0.1 103/ul Normal 0.0-0.[address] [facility] Comment on above: Performed By: #### E LEC, BUN, BNP, LIVER, CREA #### [facility] [address] [place] [address] Dr. Brissa Ma Eosinophils/100 WBC (Bld) 1.1 % Normal 0.9-7.[address] [facility] Comment on above: Performed By: #### E LEC, BUN, BNP, LIVER, CREA #### [facility] [address] [place] [address] Dr. Brissa Ma Erythrocyte distribution width (RBC) [Ratio] 14.1 % Normal 11.0-15.[address] [facility] Comment on above: Performed By: #### E LEC, BUN, BNP, LIVER, CREA #### [facility] [address] [place] [address] Dr. Brissa Ma Hematocrit (Bld) [Volume fraction] 47.8 % Normal 42.0-54.0 [facility] Comment on above: Performed By: #### E LEC, BUN, BNP, LIVER, CREA #### [facility] [address] [place] [address] Dr. Brissa Ma Hemoglobin (Bld) [Mass/Vol] 15.3 g/dL Normal 14.0-18.[address] [facility] Comment on above: Performed By: #### E LEC, BUN, BNP, LIVER, CREA #### [facility] [address] [place] [address] Dr. Brissa Ma IG # 0.17 10e3/ul Critically high 0.00-0.03 [facility] Comment on above: Performed By: #### E LEC, BUN, BNP, LIVER, CREA #### [facility] [address] [place] [address] Dr. Brissa Ma IG % 1.7 % Critically high 0.0-0.5 [facility] Comment on above: Performed By: #### E LEC, BUN, BNP, LIVER, CREA #### [facility] [address] [place] [address] Dr. Brissa Ma LYMPH # 3.8 103/ul Normal 1.2-3.[address] [facility] Comment on above: Performed By: #### E LEC, BUN, BNP, LIVER, CREA #### [facility] [address] [place] [address] Dr. Brissa Ma Lymphocytes/100 WBC (Bld) 38.4 % Normal 20.5-60.0 [facility] Comment on above: Performed By: #### E LEC, BUN, BNP, LIVER, CREA #### [facility] [address] [place] [address] Dr. Brissa Ma MANUAL DIFF REQ NO Normal [facility] [facility] Comment on above: Performed By: #### E LEC, BUN, BNP, LIVER, CREA #### [facility] [address] [place] [address] Dr. Brissa Ma MCH (RBC) [Entitic mass] 30.2 pg Normal 25.9-34.0 [facility] Comment on above: Performed By: #### E LEC, BUN, BNP, LIVER, CREA #### [facility] [address] [place] [address] Dr. Brissa Ma MCHC (RBC) [Mass/Vol] 32.0 g/dL Normal 29.9-35.[address] [facility] Comment on above: Performed By: #### E LEC, BUN, BNP, LIVER, CREA #### [facility] [address] [place] [address] Dr. Brissa Ma MCV (RBC) [Entitic vol] 94.3 fL Critically high 80.0-94.0 [facility] Comment on above: Performed By: #### E LEC, BUN, BNP, LIVER, CREA #### [facility] [address] [place] [address] Dr. Brissa Ma MONO # 0.7 103/ul Normal 0.3-0.[address] [facility] Comment on above: Performed By: #### E LEC, BUN, BNP, LIVER, CREA #### [facility] [address] [address] [address] Brissa Ma Monocytes/100 WBC (Bld) 7.4 % Normal 1.7-12.[address] [facility] Comment on above: Performed By: #### E LEC, BUN, BNP, LIVER, CREA #### [facility] [address] [place] [address] Dr. Brissa Ma NEUT # 5.0 103/ul Normal 1.4-6.[address] [facility] Comment on above: Performed By: #### E LEC, BUN, BNP, LIVER, CREA #### [facility] [address] [place] [address] Dr. Brsisa Ma Neutrophils/100 WBC (Bld) 50.6 % Normal 43.0-75.[address] [facility] Comment on above: Performed By: #### E LEC, BUN, BNP, LIVER, CREA #### [facility] [address] [place] [address] Dr. Brissa Ma Platelet mean volume (Bld) [Entitic vol] 9.0 fL Critically low 9.5-13.[address] [facility] Comment on above: Performed By: #### E LEC, BUN, BNP, LIVER, CREA #### [facility] [address] [place] [address] Dr. Brissa Ma PLT 205 103/ul Normal 150-[address] [facility] Comment on above: Performed By: #### E LEC, BUN, BNP, LIVER, CREA #### [facility] [address] [place] [address] Dr. Brissa Ma RBC 5.07 106/ul Normal 4.70-6.[address] [facility] Comment on above: Performed By: #### E LEC, BUN, BNP, LIVER, CREA #### [facility] [address] [place] [address] Dr. Brissa Ma WBC 9.9 103/ul Normal 4.0-11.[address] [facility] Comment on above: Performed By: #### E LEC, BUN, BNP, LIVER, CREA #### [facility] [address] [place] [address] Dr. Brissa Ma CREATININEon 05-19-2022 Creatinine [Mass/Vol] 1.60 mg/dL Critically high 0.70-1.30 [facility] Comment on above: Performed By: #### E LEC, BUN, BNP, LIVER, CREA #### [facility] [address] [place] [address] Dr. Brissa Ma EGFR-AF [place] 50 mL/min/1.73m2 Critically low >=60 [facility] Comment on above: Performed By: #### E LEC, BUN, BNP, LIVER, CREA #### [facility] [address] [place] [address] Dr. Brissa Ma EGFR-NON AF [place] 42 mL/min/1.73m2 Critically low >=60 [facility] Comment on above: Performed By: #### E LEC, BUN, BNP, LIVER, CREA #### [facility] [address] [place] [address] Dr. Brissa Ma ELECTROLYTESon 05-19-2022 Anion gap [Moles/Vol] 15.5 mmol/L Normal [facility] Comment on above: Performed By: #### E LEC, BUN, BNP, LIVER, CREA #### [facility] [address] [place] [address] Dr. Brissa Ma Chloride [Moles/Vol] 102 mmol/L Normal 98-107 [facility] Comment on above: Performed By: #### E LEC, BUN, BNP, LIVER, CREA #### [facility] [address] [place] [address] Dr. Brissa Ma CO2 [Moles/Vol] 25.5 mmol/L Normal 21.0-32.0 [facility] Comment on above: Performed By: #### E LEC, BUN, BNP, LIVER, CREA #### [facility] [address] [place] [address] Dr. Brissa Ma Potassium [Moles/Vol] 5.0 mmol/L Normal 3.5-5.1 [facility] Comment on above: Performed By: #### E LEC, BUN, BNP, LIVER, CREA #### [facility] [address] [place] [address] Dr. Brissa Ma Sodium [Moles/Vol] 138 mmol/L Normal 136-145 [facility] Comment on above: Performed By: #### E LEC, BUN, BNP, LIVER, CREA #### [facility] [address] [address] [address] Brissa Ma GLYCOHEMOGLOBIN A1Con 2022 ADA RECOMMENDATION SEE BELOW Normal [facility] Comment on above: Result Comment: ADA RECOMMENDED LIMIT 4.0 - 6.0 ADA THERAPEUTIC TARGET < 7.0 ACTION SUGGESTED > 7.0 Performed By: #### A 1C #### [facility] [address] [place] [address] Dr. Brissa Ma Glucose [Mass/Vol] 203 mg/dL Normal [facility] Comment on above: Performed By: #### A 1C #### [facility] [address] [place] [address] Dr. Brissa Ma HbA1c (Bld) [Mass fraction] 8.7 % Critically high 4.5-6.2 [facility] Comment on above: Performed By: #### A 1C #### [facility] [address] [place] [address] Dr. Brissa Ma LIVER PROFILEon 05-19-2022 Albumin [Mass/Vol] 3.7 g/dL Normal 3.4-5.0 [facility] Comment on above: Performed By: #### E LEC, BUN, BNP, LIVER, CREA #### [facility] [address] [place] [address] Dr. Brissa Ma Albumin/Globulin [Mass ratio] 1.0 {ratio} Normal [facility] Comment on above: Performed By: #### E LEC, BUN, BNP, LIVER, CREA #### [facility] [address] [place] [address] Dr. Brissa Ma ALP [Catalytic activity/Vol] 80 U/L Normal 46-116 [facility] Comment on above: Performed By: #### E LEC, BUN, BNP, LIVER, CREA #### [facility] [address] [place] [address] Dr. Brissa Ma ALT [Catalytic activity/Vol] 16 U/L Normal 16-[address] [facility] Comment on above: Performed By: #### E LEC, BUN, BNP, LIVER, CREA #### [facility] [address] [place] [address] Dr. Brissa Ma AST [Catalytic activity/Vol] 18 U/L Normal 15-[address] [facility] Comment on above: Performed By: #### E LEC, BUN, BNP, LIVER, CREA #### [facility] [address] [place] [address] Dr. Brissa Ma BILI, CONJUGATED 0.1 mg/dL Normal 0.0-0.[address] [facility] Comment on above: Performed By: #### E LEC, BUN, BNP, LIVER, CREA #### [facility] [address] [place] [address] Dr. Brissa Ma Bilirubin [Mass/Vol] 0.7 mg/dL Normal 0.2-1.[address] [facility] Comment on above: Performed By: #### E LEC, BUN, BNP, LIVER, CREA #### [facility] [address] [place] [address] Dr. Brissa Ma Globulin (S) [Mass/Vol] 3.8 g/dL Normal [facility] Comment on above: Performed By: #### E LEC, BUN, BNP, LIVER, CREA #### [facility] [address] [place] [address] Dr. Brissa Ma Protein [Mass/Vol] 7.5 g/dL Normal 6.4-8.[address] [facility] Comment on above: Performed By: #### E LEC, BUN, BNP, LIVER, CREA #### [facility] [address] [place] [address] Dr. Brissa Ma BNPon 01-22-2022 Natriuretic peptide B (Bld) [Mass/Vol] 150.0 pg/mL Normal <=1,800.[address] [facility] Comment on above: Performed By: #### E LEC, BUN, BNP, LIVER, CREA #### [facility] [address] [place] [address] Dr. Brissa Ma BUNon 01-22-2022 Urea nitrogen [Mass/Vol] 22.0 mg/dL Critically high 7.0-18.[address] [facility] Comment on above: Performed By: #### E LEC, BUN, BNP, LIVER, CREA #### [facility] [address] [place] [address] Dr. Brissa Ma CBC AUTO DIFFon 01-22-2022 BASO # 0.0 103/ul Normal 0.0-0.[address] [facility] Comment on above: Performed By: #### E LEC, BUN, BNP, LIVER, CREA #### [facility] [address] [place] [address] Dr. Brissa Ma Basophils/100 WBC (Bld) 0.5 % Normal 0.2-2.0 [facility] Comment on above: Performed By: #### E LEC, BUN, BNP, LIVER, CREA #### [facility] [address] [place] [address] Dr. Brissa Ma EO # 0.1 103/ul Normal 0.0-0.[address] [facility] Comment on above: Performed By: #### E LEC, BUN, BNP, LIVER, CREA #### [facility] [address] [place] [address] Dr. Brissa Ma Eosinophils/100 WBC (Bld) 1.9 % Normal 0.9-7.[address] [facility] Comment on above: Performed By: #### E LEC, BUN, BNP, LIVER, CREA #### [facility] [address] [place] [address] Dr. Brissa Ma Erythrocyte distribution width (RBC) [Ratio] 14.1 % Normal 11.0-15.0 [facility] Comment on above: Performed By: #### E LEC, BUN, BNP, LIVER, CREA #### [facility] [address] [place] [address] Dr. Brissa Ma Hematocrit (Bld) [Volume fraction] 43.1 % Normal 42.0-54.[address] [facility] Comment on above: Performed By: #### E LEC, BUN, BNP, LIVER, CREA #### [facility] [address] [place] [address] Dr. Brissa Ma Hemoglobin (Bld) [Mass/Vol] 13.7 g/dL Critically low 14.0-18.[address] [facility] Comment on above: Performed By: #### E LEC, BUN, BNP, LIVER, CREA #### [facility] [address] [place] [address] Dr. Brissa Ma IG # 0.05 10e3/ul Critically high 0.00-0.[address] [facility] Comment on above: Performed By: #### E LEC, BUN, BNP, LIVER, CREA #### [facility] [address] [place] [address] Dr. Birssa Ma IG % 0.8 % Critically high 0.0-0.5 [facility] Comment on above: Performed By: #### E LEC, BUN, BNP, LIVER, CREA #### [facility] [address] [place] [address] Dr. Brissa Ma LYMPH # 2.7 103/ul Normal 1.2-3.[address] [facility] Comment on above: Performed By: #### E LEC, BUN, BNP, LIVER, CREA #### [facility] [address] [place] [address] Dr. Brissa Ma Lymphocytes/100 WBC (Bld) 42.1 % Normal 20.5-60.[address] [facility] Comment on above: Performed By: #### E LEC, BUN, BNP, LIVER, CREA #### [facility] [address] [place] [address] Dr. Brissa Ma MANUAL DIFF REQ NO Normal [facility] Comment on above: Performed By: #### E LEC, BUN, BNP, LIVER, CREA #### [facility] [address] [place] [address] Dr. Brissa Ma MCH (RBC) [Entitic mass] 29.8 pg Normal 25.9-34.[address] [facility] Comment on above: Performed By: #### E LEC, BUN, BNP, LIVER, CREA #### [facility] [address] [place] [address] Dr. Brissa Ma MCHC (RBC) [Mass/Vol] 31.8 g/dL Normal 29.9-35.[address] [facility] Comment on above: Performed By: #### E LEC, BUN, BNP, LIVER, CREA #### [facility] [address] [place] [address] Dr. Brissa Ma MCV (RBC) [Entitic vol] 93.9 fL Normal 80.0-94.[address] [facility] Comment on above: Performed By: #### E LEC, BUN, BNP, LIVER, CREA #### [facility] [address] [place] [address] Dr. Brissa Ma MONO # 0.5 103/ul Normal 0.3-0.[address] [facility] Comment on above: Performed By: #### E LEC, BUN, BNP, LIVER, CREA #### [facility] [address] [place] [address] Dr. Brissa aM Monocytes/100 WBC (Bld) 7.8 % Normal 1.7-12.[address] [facility] Comment on above: Performed By: #### E LEC, BUN, BNP, LIVER, CREA #### [facility] [address] [place] [address] Dr. Brissa Ma NEUT # 3.0 103/ul Normal 1.4-6.[address] [facility] Comment on above: Performed By: #### E LEC, BUN, BNP, LIVER, CREA #### [facility] [address] [place] [address] Dr. Brissa Ma Neutrophils/100 WBC (Bld) 46.9 % Normal 43.0-75.[address] [facility] Comment on above: Performed By: #### E LEC, BUN, BNP, LIVER, CREA #### [facility] [address] [place] [address] Dr. Brissa Ma Platelet mean volume (Bld) [Entitic vol] 9.2 fL Critically low 9.5-13.5 [facility] Comment on above: Performed By: #### E LEC, BUN, BNP, LIVER, CREA #### [facility] [address] [place] [address] Dr. Brissa Ma PLT 163 103/ul Normal 150-450 [facility] Comment on above: Performed By: #### E LEC, BUN, BNP, LIVER, CREA #### [facility] [address] [place] [address] Dr. Brissa Ma RBC 4.59 106/ul Critically low 4.70-6.10 [facility] Comment on above: Performed By: #### E LEC, BUN, BNP, LIVER, CREA #### [facility] [address] [place] [address] Dr. Brissa Ma WBC 6.4 103/ul Normal 4.0-11.0 [facility] Comment on above: Performed By: #### E LEC, BUN, BNP, LIVER, CREA #### [facility] [address] [place] [address] Dr. Brissa Ma CREATININEon 01-22-2022 Creatinine [Mass/Vol] 1.47 mg/dL Critically high 0.70-1.30 [facility] Comment on above: Performed By: #### E LEC, BUN, BNP, LIVER, CREA #### [facility] [address] [place] [address] Dr. Brissa Ma EGFR-AF [place] 56 mL/min/1.73m2 Critically low >=[address] [facility] Comment on above: Performed By: #### E LEC, BUN, BNP, LIVER, CREA #### [facility] [address] [place] [address] Dr. Brissa Ma EGFR-NON AF [place] 46 mL/min/1.73m2 Critically low >=60 [facility] Comment on above: Performed By: #### E LEC, BUN, BNP, LIVER, CREA #### [facility] [address] [place] [address] Dr. Brissa Ma ELECTROLYTESon 01-22-2022 Anion gap [Moles/Vol] 10.1 mmol/L Normal [facility] Comment on above: Performed By: #### E LEC, BUN, BNP, LIVER, CREA #### [facility] [address] [address] [address] Brissa Ma Chloride [Moles/Vol] 106 mmol/L Normal 98-[address] [facility] Comment on above: Performed By: #### E LEC, BUN, BNP, LIVER, CREA #### [facility] [address] [place] [address] Dr. Brissa Ma CO2 [Moles/Vol] 28.4 mmol/L Normal 21.0-32.[address] [facility] Comment on above: Performed By: #### E LEC, BUN, BNP, LIVER, CREA #### [facility] [address] [place] [address] Dr. Brissa Ma Potassium [Moles/Vol] 4.5 mmol/L Normal 3.5-5.1 [facility] Comment on above: Performed By: #### E LEC, BUN, BNP, LIVER, CREA #### [facility] [address] [place] [address] Dr. Brissa Ma Sodium [Moles/Vol] 140 mmol/L Normal 136-145 [facility] Comment on above: Performed By: #### E LEC, BUN, BNP, LIVER, CREA #### [facility] [address] [place] [address] Dr. Brissa Ma GLYCOHEMOGLOBIN A1Con 2021 ADA RECOMMENDATION SEE BELOW Normal [facility] Comment on above: Result Comment: ADA RECOMMENDED LIMIT 4.0 - 6.0 ADA THERAPEUTIC TARGET < 7.0 ACTION SUGGESTED > 7.0 Performed By: #### A 1C #### [facility] [address] [place] [address] Dr. Brissa Ma Glucose [Mass/Vol] 223 mg/dL Normal [facility] Comment on above: Performed By: #### A 1C #### [facility] [address] [place] [address] Dr. Brissa Ma HbA1c (Bld) [Mass fraction] 9.4 % Critically high 4.5-6.[address] [facility] Comment on above: Performed By: #### A 1C #### [facility] [address] [place] [address] Dr. Brissa Ma LIVER PROFILEon 01-22-2022 Albumin [Mass/Vol] 3.6 g/dL Normal 3.4-5.0 [facility] Comment on above: Performed By: #### E LEC, BUN, BNP, LIVER, CREA #### [facility] [address] [place] [address] Dr. Brissa Ma Albumin/Globulin [Mass ratio] 1.0 {ratio} Normal [facility] Comment on above: Performed By: #### E LEC, BUN, BNP, LIVER, CREA #### [facility] [address] [place] [address] Dr. Brissa Ma ALP [Catalytic activity/Vol] 86 U/L Normal 46-[address] [facility] Comment on above: Performed By: #### E LEC, BUN, BNP, LIVER, CREA #### [facility] [address] [place] [address] Dr. Brissa Ma ALT [Catalytic activity/Vol] 18 U/L Normal 16-[address] [facility] Comment on above: Performed By: #### E LEC, BUN, BNP, LIVER, CREA #### [facility] [address] [place] [address] Dr. Brissa Ma AST [Catalytic activity/Vol] 20 U/L Normal 15-[address] [facility] Comment on above: Performed By: #### E LEC, BUN, BNP, LIVER, CREA #### [facility] [address] [place] [address] Dr. Brissa Ma BILI, CONJUGATED 0.1 mg/dL Normal 0.0-0.[address] [facility] Comment on above: Performed By: #### E LEC, BUN, BNP, LIVER, CREA #### [facility] [address] [place] [address] Dr. Brissa Ma Bilirubin [Mass/Vol] 0.4 mg/dL Normal 0.2-1.[address] [facility] Comment on above: Performed By: #### E LEC, BUN, BNP, LIVER, CREA #### [facility] [address] [place] [address] Dr. Brissa Ma Globulin (S) [Mass/Vol] 3.7 g/dL Normal [facility] Comment on above: Performed By: #### E LEC, BUN, BNP, LIVER, CREA #### [facility] [address] [place] [address] Dr. Brissa Ma Protein [Mass/Vol] 7.3 g/dL Normal 6.4-8.[address] [facility] Comment on above: Performed By: #### E LEC, BUN, BNP, LIVER, CREA #### [facility] [address] [place] [address] Dr. Brissa Ma BUNon 10-08-2021 Urea nitrogen [Mass/Vol] 25.0 mg/dL Critically high 7.0-18.0 [facility] Comment on above: Performed By: #### E LEC, BUN, BNP, LIVER, CREA #### [facility] [address] [place] [address] Dr. Brissa Ma CBC AUTO DIFFon 10-08-2021 BASO # 0.1 103/ul Normal 0.0-0.1 [facility] Comment on above: Performed By: #### C BC #### [facility] [address] [place] [address] Dr. Brissa Ma Basophils/100 WBC (Bld) 0.7 % Normal 0.2-2.[address] [facility] Comment on above: Performed By: #### C BC #### [facility] [address] [place] [address] Dr. Brissa Ma EO # 0.1 103/ul Normal 0.0-0.[address] [facility] Comment on above: Performed By: #### C BC #### [facility] [address] [place] [address] Dr. Brissa Ma Eosinophils/100 WBC (Bld) 1.8 % Normal 0.9-7.[address] [facility] Comment on above: Performed By: #### C BC #### [facility] [address] [place] [address] Dr. Brissa Ma Erythrocyte distribution width (RBC) [Ratio] 14.1 % Normal 11.0-15.0 [facility] Comment on above: Performed By: #### C BC #### [facility] [address] [place] [address] Dr. Brissa Ma Hematocrit (Bld) [Volume fraction] 41.9 % Critically low 42.0-54.0 [facility] Comment on above: Performed By: #### C BC #### [facility] [address] [place] [address] Dr. Brissa Ma Hemoglobin (Bld) [Mass/Vol] 13.3 g/dL Critically low 14.0-18.0 [facility] Comment on above: Performed By: #### C BC #### [facility] [address] [place] [address] Dr. Brissa Ma IG # 0.06 10e3/ul Critically high 0.00-0.03 [facility] Comment on above: Performed By: #### C BC #### [facility] [address] [place] [address] Dr. Brissa Ma IG % 0.9 % Critically high 0.0-0.5 [facility] Comment on above: Performed By: #### C BC #### [facility] [address] [place] [address] Dr. Brissa Ma LYMPH # 2.6 103/ul Normal 1.2-3.8 [facility] Comment on above: Performed By: #### C BC #### [facility] [address] [place] [address] Dr. Brissa Ma Lymphocytes/100 WBC (Bld) 37.8 % Normal 20.5-60.0 [facility] Comment on above: Performed By: #### C BC #### [facility] [address] [place] [address] Dr. Brissa Ma MANUAL DIFF REQ NO Normal [facility] Comment on above: Performed By: #### C BC #### [facility] [address] [place] [address] Dr. Brissa Ma MCH (RBC) [Entitic mass] 30.4 pg Normal 25.9-34.0 [facility] Comment on above: Performed By: #### C BC #### [facility] [address] [place] [address] Dr. Brissa Ma MCHC (RBC) [Mass/Vol] 31.7 g/dL Normal 29.9-35.2 [facility] Comment on above: Performed By: #### C BC #### [facility] [address] [place] [address] Dr. Brissa Ma MCV (RBC) [Entitic vol] 95.7 fL Critically high 80.0-94.0 [facility] Comment on above: Performed By: #### C BC #### [facility] [address] [place] [address] Dr. Brissa Ma MONO # 0.6 103/ul Normal 0.3-0.8 [facility] Comment on above: Performed By: #### C BC #### [facility] [address] [place] [address] Dr. Brissa Ma Monocytes/100 WBC (Bld) 8.4 % Normal 1.7-12.0 [facility] Comment on above: Performed By: #### C BC #### [facility] [address] [place] [address] Dr. Brissa Ma NEUT # 3.4 103/ul Normal 1.4-6.5 [facility] Comment on above: Performed By: #### C BC #### [facility] [address] [place] [address] Dr. Brissa Ma Neutrophils/100 WBC (Bld) 50.4 % Normal 43.0-75.[address] [facility] Comment on above: Performed By: #### C BC #### [facility] [address] [place] [address] Dr. Brissa Ma Platelet mean volume (Bld) [Entitic vol] 9.2 fL Critically low 9.5-13.5 [facility] Comment on above: Performed By: #### C BC #### [facility] [address] [place] [address] Dr. Brissa Ma PLT 151 103/ul Normal 150-[address] [facility] Comment on above: Performed By: #### C BC #### [facility] [address] [place] [address] Dr. Brissa Ma RBC 4.38 106/ul Critically low 4.70-6.10 [facility] Comment on above: Performed By: #### C BC #### [facility] [address] [place] [address] Dr. Brissa Ma WBC 6.8 103/ul Normal 4.0-11.0 [facility] Comment on above: Performed By: #### C BC #### [facility] [address] [place] [address] Dr. Brissa Ma CREATININEon 10-08-2021 Creatinine [Mass/Vol] 1.30 mg/dL Normal 0.70-1.30 [facility] Comment on above: Performed By: #### E LEC, BUN, BNP, LIVER, CREA #### [facility] [address] [place] [address] Dr. Brissa Ma EGFR-AF [place] >60 Normal >=60 [facility] Comment on above: Performed By: #### E LEC, BUN, BNP, LIVER, CREA #### [facility] [address] [place] [address] Dr. Brissa Ma EGFR-NON AF [place] 53 mL/min/1.73m2 Critically low >=60 [facility] Comment on above: Performed By: #### E LEC, BUN, BNP, LIVER, CREA #### [facility] [address] [place] [address] Dr. Brissa Ma ELECTROLYTESon 10-08-2021 Anion gap [Moles/Vol] 12.3 mmol/L Normal Th [facility] Comment on above: Performed By: #### E LEC, BUN, BNP, LIVER, CREA #### [facility] [address] [place] [address] Dr. Brissa Ma Chloride [Moles/Vol] 106 mmol/L Normal 98-107 [facility] Comment on above: Performed By: #### E LEC, BUN, BNP, LIVER, CREA #### [facility] [address] [address] [address] Brissa Ma CO2 [Moles/Vol] 24.3 mmol/L Normal 21.0-32.0 [facility] Comment on above: Performed By: #### E LEC, BUN, BNP, LIVER, CREA #### [facility] [address] [place] [address] Dr. Brissa Ma Potassium [Moles/Vol] 4.6 mmol/L Normal 3.5-5.[address] [facility] Comment on above: Performed By: #### E LEC, BUN, BNP, LIVER, CREA #### [facility] [address] [place] [address] Dr. Brissa Ma Sodium [Moles/Vol] 138 mmol/L Normal 136-[address] [facility] Comment on above: Performed By: #### E LEC, BUN, BNP, LIVER, CREA #### [facility] [address] [place] [address] Dr. Brissa Ma GLYCOHEMOGLOBIN A1Con 2021 ADA RECOMMENDATION SEE BELOW Normal [facility] Comment on above: Result Comment: ADA RECOMMENDED LIMIT 4.0 - 6.0 ADA THERAPEUTIC TARGET < 7.0 ACTION SUGGESTED > 7.0 Performed By: #### A 1C #### [facility] [address] [place] [address] Dr. Brissa Ma Glucose [Mass/Vol] 189 mg/dL Normal [facility] Comment on above: Performed By: #### A 1C #### [facility] [address] [place] [address] Dr. Brissa Ma HbA1c (Bld) [Mass fraction] 8.2 % Critically high 4.5-6.2 [facility] Comment on above: Performed By: #### A 1C #### [facility] [address] [place] [address] Dr. Brissa Ma LIPID PROFILEon 10-08-2021 CHOL-HDL RATIO NORM SEE BELOW Normal [facility] Comment on above: Result Comment: 3.3 - 4.4 LOW RISK 4.4 - 7.1 AVERAGE RISK 7.1 - 11.0 MODERATE RISK >11.0 HIGH RISK Performed By: #### C LEELEE, ELEC, LIPID, LIVER, BUN #### [facility] [address] [address] [address] Brissa Ma Cholesterol [Mass/Vol] 75 mg/dL Normal <=[address] [facility] Comment on above: Performed By: #### C LEELEE, ELEC, LIPID, LIVER, BUN #### [facility] [address] [place] [address] Dr. Brissa Ma Cholesterol in HDL [Mass/Vol] 33 mg/dL Critically low 40-60 [facility] Comment on above: Performed By: #### C LEELEE, ELEC, LIPID, LIVER, BUN #### [facility] [address] [place] [address] Dr. Brissa Ma Cholesterol in LDL [Mass/Vol] 22.0 mg/dL Normal [facility] Comment on above: Performed By: #### C LEELEE, ELEC, LIPID, LIVER, BUN #### [facility] [address] [place] [address] Dr. Brissa Ma Cholesterol.total/Chol esterol in HDL [Mass ratio] 2.3 {ratio} Normal [facility] Comment on above: Performed By: #### C LEELEE, ELEC, LIPID, LIVER, BUN #### [facility] [address] [place] [address] Dr. Brissa Ma HDL NORMAL > or = 60 mg/dl - LO W CARDIOVASCULAR RISK <40 mg/dl - HIGH CARDIOVASCULAR RISK Normal [facility] Comment on above: Performed By: #### C LEELEE, ELEC, LIPID, LIVER, BUN #### [facility] [address] [place] [address] Dr. Brissa Ma LDL CALC NORMAL SEE BELOW Normal [facility] Comment on above: Result Comment: <100 mg/dl OPTIMAL 100 - 129 mg/dl NEAR OR ABOVE OPTIMAL 130 - 159 mg/dl BORDERLINE HIGH 160 - 189 mg/dl HIGH >190 mg/dl VERY HIGH Performed By: #### C LEELEE, ELEC, LIPID, LIVER, BUN #### [facility] [address] [place] [address] Dr. Brissa Ma Triglyceride [Mass/Vol] 100 mg/dL Normal <=[address] [facility] Comment on above: Performed By: #### C LEELEE, ELEC, LIPID, LIVER, BUN #### [facility] [address] [address] [address] Brissa Ma VLDL CALC 20.0 mg/dL Normal [facility] Comment on above: Performed By: #### C LEELEE, ELEC, LIPID, LIVER, BUN #### [facility] [address] [address] [address] Brissa Ma LIVER PROFILEon 10-08-2021 Albumin [Mass/Vol] 3.4 g/dL Normal 3.4-5.0 [facility] Comment on above: Performed By: #### E LEC, BUN, BNP, LIVER, CREA #### [facility] [address] [place] [address] Dr. Brissa Ma Albumin/Globulin [Mass ratio] 1.0 {ratio} Normal [facility] Comment on above: Performed By: #### E LEC, BUN, BNP, LIVER, CREA #### [facility] [address] [place] [address] Dr. Brissa Ma ALP [Catalytic activity/Vol] 96 U/L Normal 46-[address] [facility] Comment on above: Performed By: #### E LEC, BUN, BNP, LIVER, CREA #### [facility] [address] [place] [address] Dr. Brissa Ma ALT [Catalytic activity/Vol] 24 U/L Normal 16-[address] [facility] Comment on above: Performed By: #### E LEC, BUN, BNP, LIVER, CREA #### [facility] [address] [place] [address] Dr. Brissa Ma AST [Catalytic activity/Vol] 14 U/L Critically low 15-[address] [facility] Comment on above: Performed By: #### E LEC, BUN, BNP, LIVER, CREA #### [facility] [address] [place] [address] Dr. Brissa Ma BILI, CONJUGATED 0.1 mg/dL Normal 0.0-0.2 [facility] Comment on above: Performed By: #### E LEC, BUN, BNP, LIVER, CREA #### [facility] [address] [address] [address] Brissa Ma Bilirubin [Mass/Vol] 0.4 mg/dL Normal 0.2-1.0 [facility] Comment on above: Performed By: #### E LEC, BUN, BNP, LIVER, CREA #### [facility] [address] [place] [address] Dr. Brissa Ma Globulin (S) [Mass/Vol] 3.5 g/dL Normal [facility] Comment on above: Performed By: #### E LEC, BUN, BNP, LIVER, CREA #### [facility] [address] [place] [address] Dr. Brissa Ma Protein [Mass/Vol] 6.9 g/dL Normal 6.4-8.2 [facility] Comment on above: Performed By: #### E LEC, BUN, BNP, LIVER, CREA #### [facility] [address] [place] [address] Dr. Brissa Ma Vital Signs Date Time Vital Sign Value Performing Clinician Facility 01-18-2024 09:01-0500 Body height 170.2 cm [employer] Work Phone: [facility] 01-18-2024 09:01-0500 Body mass index (BMI) [Ratio] 28.19 kg/m2 [employer] Work Phone: [facility] 01-18-2024 09:01-0500 Body temperature 98.01 [degF] [employer] DO Work Phone: [facility] 01-18-2024 09:01-0500 Body weight 81.65 kg [employer] Work Phone: [facility] 01-18-2024 09:01-0500 Diastolic blood pressure 66 mm[Hg] [employer] DO Work Phone: [facility] 01-18-2024 09:01-0500 Heart rate 92 /min [employer] Work Phone: [place] [place] [id number] 09:01-0500 SaO2% (BldA) [Mass fraction] 94 % Veda Petznick DO Work Phone: [facility] 01-18-2024 09:01-0500 Systolic blood pressure 110 mm[Hg] Veda Petznick DO Work Phone: [facility] 12-10-2023 13:27-0400 Body height 170.2 cm Kennedy Camara DPM Work Phone: [facility] 12-10-2023 13:27-0400 Body mass index (BMI) [Ratio] 28.04 kg/m2 Kennedy Camara DPM Work Phone: [facility] 12-10-2023 13:27-0400 Body weight 81.19 kg Kennedy Camara DPM Work Phone: [facility] 12-10-2023 13:27-0400 Respiratory rate 17 /min Kennedy Camara DPM Work Phone: [facility] 12-03-2023 13:58-0400 Body height 170.2 cm Veda Petznick DO Work Phone: [facility] 12-03-2023 13:58-0400 Body mass index (BMI) [Ratio] 28.16 kg/m2 Veda Petznick DO Work Phone: [facility] 12-03-2023 13:58-0400 Body temperature 96.4 [degF] Veda Petznick DO Work Phone: [facility] 12-03-2023 13:58-0400 Body weight 81.56 kg Veda Petznick DO Work Phone: [facility] 12-03-2023 13:58-0400 Diastolic blood pressure 68 mm[Hg] Veda Petznick DO Work Phone: [facility] 12-03-2023 13:58-0400 Heart rate 74 /min Veda Petznick DO Work Phone: [facility] 12-03-2023 13:58-0400 SaO2% (BldA) [Mass fraction] 98 % Veda Rome DO Work Phone: [facility] 12-03-2023 13:58-0400 Systolic blood pressure 102 mm[Hg] Veda Rome DO Work Phone: [facility] 07-24-2023 13:40-0400 Body height 167.6 cm Henrry Issa MD Work Phone: [facility] 07-24-2023 13:40-0400 Body mass index (BMI) [Ratio] 30.02 kg/m2 Henrry Issa MD Work Phone: [facility] 07-24-2023 13:40-0400 Body weight 84.37 kg Henrry Issa MD Work Phone: [facility] 07-24-2023 13:40-0400 Diastolic blood pressure 74 mm[Hg] Henrry Issa MD Work Phone: [facility] 07-24-2023 13:40-0400 Heart rate 82 /min Henrry Issa MD Work Phone: [facility] 07-24-2023 13:40-0400 Systolic blood pressure 134 mm[Hg] Henrry Issa MD Work Phone: [facility] 04-08-2023 13:24-0500 Body height 170.2 cm Trip BROOKS Work Phone: [facility] 04-08-2023 13:24-0500 Body mass index (BMI) [Ratio] 28.19 kg/m2 Trip BROOKS Work Phone: [facility] 04-08-2023 13:24-0500 Body weight 81.65 kg Trip BROOKS Work Phone: [facility] 01-14-2023 14:28-0500 Body height 170.2 cm Henrry Issa MD Work Phone: [facility] 01-14-2023 14:28-0500 Body mass index (BMI) [Ratio] 30.07 kg/m2 Henrry Issa MD Work Phone: [facility] 01-14-2023 14:28-0500 Body weight 87.09 kg Henrry Issa MD Work Phone: [facility] 01-14-2023 14:28-0500 Diastolic blood pressure 60 mm[Hg] Henrry Issa MD Work Phone: [facility] 01-14-2023 14:28-0500 Heart rate 92 /min Henrry Issa MD Work Phone: [facility] 01-14-2023 14:28-0500 Systolic blood pressure 106 mm[Hg] Henrry Issa MD Work Phone: [facility] 01-02-2023 11:43-0400 Body mass index (BMI) [Ratio] 30.4 kg/m2 Hugo Moser Work Phone: [facility] 12-31-2022 13:51-0400 Diastolic blood pressure 70 mm[Hg] Hugo Moser Work Phone: [facility] 12-31-2022 13:51-0400 Heart rate 83 /min Hugo Moser Work Phone: [facility] 12-31-2022 13:51-0400 Respiratory rate 14 /min Hugo Moser Work Phone: [facility] 12-31-2022 13:51-0400 SaO2% (BldA) [Mass fraction] 98 % Hugo Moser Work Phone: [facility] 12-31-2022 13:51-0400 Systolic blood pressure 112 mm[Hg] Hugo oMser Work Phone: [facility] 12-31-2022 12:00-0400 Body temperature 97.8 [degF] Hugo Moser Work Phone: [facility] 12-31-2022 06:00-0400 Body weight 86.5 kg JR Arias Karieshaina Work Phone: [facility] 12-30-2022 15:37-0400 Inhaled oxygen flow rate 6 L/min JR Hugo Moser Work Phone: [facility] 12-30-2022 15:12-0400 Body height 170.18 cm JR Hugo Moser Work Phone: [facility] 12-30-2022 15:12-0400 Body mass index (BMI) [Ratio] 30.4 kg/m2 JR Hugo Moser Work Phone: [facility] Encounters Encounter Date Encounter Type Care Provider Facility Start: 02-17-2024 End: 02-17-2024 Bamboo flowsheet Jr. Gini Cárdenas DO Work Phone: [facility] Start: 02-17-2024 End: 02-17-2024 Bamboo flowsheet Jr. Gini Cárdenas DO Work Phone: [facility] Start: 02-17-2024 End: 02-17-2024 Office outpatient visit 15 minutes Jr. Gini Cárdenas DO Work Phone: [facility] Comment on above: Rotator cuff arthrop athy, right (Primary Dx); Shoulder arthritis Start: 02-17-2024 End: 02-17-2024 ambulatory GINI RAMIRES Not Available Start: 01-18-2024 End: 01-18-2024 Bamboo flowsheet Veda Rome DO Work Phone: [facility] Start: 01-18-2024 End: 01-18-2024 Bamboo flowsheet Veda Salazarines DO Work Phone: [facility] Start: 01-18-2024 End: 01-18-2024 Office outpatient visit 25 minutes Veda Rome DO Work Phone: [facility] Comment on above: Type 2 diabetes enriqueta 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, without long-term current use of insulin (HCC) ([facility]/HCC); Type 2 diabetes mellitus with hyperglycemia, without long-term current use of insulin ([facility]/HCC) Start: 01-18-2024 End: 01-18-2024 ambulatory VEDA ROME Not Available Start: 01-15-2024 End: 01-15-2024 ambulatory Stephanie Steward Facility:[facility] Start: 01-15-2024 Non-patient / Non-visit Replaced By [facility] Start: 01-14-2024 End: 01-14-2024 Telephone encounter Veda Rome DO Work Phone: [facility] Start: 12-10-2023 End: 12-10-2023 Bamboo flowsheet Kennedy Camara DPM Work Phone: [facility] Start: 12-10-2023 End: 12-10-2023 Bamboo flowsheet Kennedy Camara DPM Work Phone: [facility] Start: 12-10-2023 End: 12-10-2023 Patient encounter procedure Kennedy Camara DPM Work Phone: [facility] Comment on above: Type 2 diabetes enriqueta itus without complication, unspecified whether prison insulin use ([facility]) (Primary Dx); Pain due to onychomycosis of toenails of both feet Start: 12-10-2023 End: 12-10-2023 ambulatory KENNEDY CAMARA Not Available Start: 12-03-2023 End: 12-03-2023 Office outpatient new 45 minutes Veda Rome DO Work Phone: [facility] Comment on above: Type 2 diabetes enriqueta 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, without long-term current use of insulin (HCC) ([facility]) (Primary Dx); Type 2 diabetes mellitus with hyperglycemia, without long-term current use of insulin ([facility]) Start: 12-03-2023 End: 12-03-2023 ambulatory VEDA ROME Not Available Start: 12-02-2023 End: 12-02-2023 Telephone encounter Veda Rome DO Work Phone: [facility] Start: 12-01-2023 Non-patient / Non-visit Replaced By [facility] Start: 10-16-2023 End: 10-16-2023 Patient encounter procedure JR Hugo Moser Work Phone: [facility] Start: 10-16-2023 End: 10-16-2023 ambulatory JR Hugo Moser Work Phone: [facility] Work Phone: Start: 08-17-2023 End: 08-17-2023 ambulatory GINI RAMIRES Not Available Start: 07-24-2023 End: 07-24-2023 Office outpatient visit 25 minutes Henrry Issa MD Work Phone: [facility] Comment on above: Non-ischemic cardiom yopathy (Multi) (Primary Dx); AV block, Mobitz II; Pacemaker; Mixed hyperlipidemia; BMI 30.0-30.9,adult Start: 07-24-2023 End: 07-24-2023 ambulatory [facility] Start: 07-15-2023 End: 07-15-2023 [facility] Start: 05-11-2023 End: 05-11-2023 ambulatory GINI RAMIRES Not Available Start: 04-15-2023 End: 04-15-2023 Patient encounter procedure JR Hugo Moser Work Phone: [facility] Start: 04-15-2023 End: 04-15-2023 ambulatory JR Hugo Moser Work Phone: [facility] Work Phone: Start: 04-08-2023 End: 04-08-2023 Office outpatient new 45 minutes Trip BROOKS Work Phone: [facility] Comment on above: Acute pain of right shoulder; Rotator cuff arthropathy, right; Arthritis of right acromioclavicular joint Start: 04-08-2023 End: 04-08-2023 ambulatory TRIP BROWN Not Available Start: 01-14-2023 End: 01-14-2023 Office outpatient visit 25 minutes Henrry Issa MD Work Phone: [facility] Comment on above: AV block, Mobitz II; Pacemaker; Obesity (BMI 30.0-34.9) Start: 01-14-2023 End: 01-14-2023 ambulatory HENRRY ISSA [facility] Ambulatory Start: 01-08-2023 End: 01-08-2023 Patient encounter procedure JR Hugo Moser Work Phone: [facility] [place] Work Phone: Start: 01-08-2023 End: 01-08-2023 ambulatory Hugo Moser Work Phone: [facility] Work Phone: Start: 12-28-2022 End: 12-31-2022 Evaluation and management of inpatient JR Hugo Moser Work Phone: [facility] Work Phone: Start: 05-19-2022 End: 05-20-[address] HUGO MOSER Facility:[facility] Start: 01-22-2022 End: 01-23-[address] HUGO MOSER Facility:[facility] Start: 10-09-2021 Encounter for genera l adult medical examination without abnormal findings DR HUGO MOSER [facility] Start: 10-08-2021 End: 10-09-[address] HUGO MOSER Facility:[facility] Start: 10-08-2021 End: 10-09-2021 Encounter for general adult medical examination without abnormal findings DR HUGO MOSER Facility:[facility] Procedures Date Procedure Procedure Detail Performing Clinician Start: 01-18-2024 Hemoglobin glycosylated a1c Veda Rome DO Work Phone: Start: 04-15-2023 Plain chest X-ray JR [place] [...] Treatment Date Care Activity Detail Author Start: 04-18-2024 End: 04-18-2024 Patient encounter procedure 04/18/2024 1:00 PM EST Office Visit [facility] [address] [place] [phone] Veda Rome, DO [address] [place] [address] [facility] Start: 03-09-2024 End: 03-09-2024 Patient encounter procedure 03/09/2024 10:50 AM EST Office Visit [facility] [address] [place] [address] Stephanie Steward MD [address] [place] [address] [facility] Start: 02-17-2024 End: 02-17-2024 Patient encounter procedure [facility] Comment on above: Arrived Start: 01-15-2024 End: 01-15-2024 Patient encounter procedure 01/15/2024 2:00 PM EST Office Visit [facility] [address] [place] [phone] Veda Rome, DO [address] [place] [address] [facility] Start: 12-10-2023 End: 12-10-2023 Patient encounter procedure [facility] Comment on above: Type 2 diabetes enriqueta itus without complication, unspecified whether prison insulin use ([facility]) (Primary Dx); Pain due to onychomycosis of toenails of both feet Start: 12-03-2023 End: 12-03-2023 Patient encounter procedure 12/03/2023 2:00 PM EDT Office Visit [facility] [address] [place] [phone] Veda Rome DO [address] [place] [address] [facility] Start: 11-01-2023 Influenza vaccination [facility] Start: 07-24-2023 End: 07-24-2023 Patient encounter procedure 07/24/2023 1:40 PM EDT Office Visit [facility] [address] [facility] [address] [place] [address] Henrry Issa MD [address] [facility] [address] [place] [address] [facility] Start: 05-11-2023 End: 05-11-2023 Patient encounter procedure 05/11/2023 10:45 AM EDT Office Visit [facility] [address] [place] [phone] Jr. Gini Cárdenas, DO [address] [place] [address] [facility] Start: 12-31-2022 [facility] Start: 12-30-2022 [facility] Start: 12-28-2022 Insertion of Pacemak er Lead into Right Atrium, Percutaneous Approach Insertion of Pacemaker Lead into Right Atrium, Percutaneous Approach [facility] Start: 12-28-2022 Insertion of Pacemak er Lead into Right Ventricle, Percutaneous Approach Insertion of Pacemaker Lead into Right Ventricle, Percutaneous Approach [facility] Start: 12-28-2022 Insertion of Pacemak er, Dual Chamber into Chest Subcutaneous Tissue and Fascia, Open Approach Insertion of Pacemaker, Dual Chamber into Chest Subcutaneous Tissue and Fascia, Open Approach [facility] Start: 12-28-2022 Hospital admission [facility] Start: 12-28-2022 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 [facility] Start: 10-31-2022 COVID-19 Vaccine ( season) COVID-19 Vaccine ( season) [facility] Start: 10-31-2022 Influenza vaccination Influenza Vacc ine (#1) [facility] Start: 02-05-2022 COVID-19 Vaccine (4 - Moderna series) COVID-19 Vaccine (4 - Moderna series) [facility] Start: 05-18-2019 Pneumococcal Vaccine : 65+ Years (2 - PCV) Pneumococcal Vaccine: 65+ Years (2 - PCV) [facility] Start: 05-18-2019 Pneumococcal Vaccine : 65+ Years (2 of 2 - PCV) Pneumococcal Vaccine: 65+ Years (2 of 2 - PCV) [facility] Start: 1999 RSV patient s and/or patients aged 60+ years (1 - 1-dose 60+ series) RSV patients and/or patients aged 60+ years (1 - 1-dose 60+ series) [facility] Start: 08-18-1989 Zoster Vaccines (1 of 2) Zoste r Vaccines (1 of 2) [facility] Start: 08-18-1961 DTaP/Tdap/Td Vaccine s (1 - Tdap) DTaP/Tdap/Td Vaccines (1 - Tdap) [facility] Start: 08-18-1958 Urine screening for protein Diabetes: Urine Protein Screening [facility] Start: 08-18-1949 Diabetic foot examination Diabetes: Foot Exam [facility] Start: 08-18-1949 Glaucoma screening Diabetes: R etinopathy Screening [facility] Start: 1940 Hemoglobin A1c measurement Diabetes: Hemoglobin A1C [facility] Start: 1939 Lipid panel Lipid Panel [facility] Start: 1939 Medicare Annual Well ness Visit Medicare Annual Wellness Visit (AWV) [facility] Patient Education Clindamycin (Systemic) [facility] Work Phone: Patient referral [facility] Work Phone: XR Shoulder - right 2 Views XR shoulder 2+ views right Imaging Routine Acute pain of right shoulder 04/08/2023 1:21 PM EST [facility] Work Phone: Immunizations Immunization Date Immunization Notes Care Provider Fa [facility] 12-11-2021 Moderna COVID-19 vaccine, bivalent, blue cap/goff label *Check age/dose* Henrry Issa MD Work Phone: [facility] 01-31-2021 influenza, injectabl e, quadrivalent, preservative free Henrry Issa MD Work Phone: [facility] Work Phone: 01-31-2021 influenza virus vacc ine, unspecified formulation Henrry Issa MD Work Phone: [facility] Work Phone: 05-17-2018 influenza, injectabl e, quadrivalent, preservative free Henrry Issa MD Work Phone: [facility] Work Phone: 05-17-2018 pneumococcal polysaccharide vaccine, 23 valent Henrry Issa MD Work Phone: [facility] Work Phone: Payers Date Payer Category Payer Private Health Insurance AARP Id [id number] 2022 Self-pay 2022 Unknown [id number] 2004 Medicare [id number] 1959 Medicare [id number] 1959 Unknown [id number] 1939 Unknown [id number] [id number] .593 1939 Unknown [id number] 2.16.840.1.480270.3.579.2 .593 1939 Unknown [id number] 2.16.840.1.964094.3.579.2 .593 1939 Unknown [id number] 2.16.840.1.168780.3.579.2 .1244 1939 Unknown [id number] 2.16.840.1.462596.3.579.2 .1244 1939 Unknown [id number] 2.16.840.1.211172.3.579.2 .1244 1939 Unknown [id number] 2.16.840.1.035607.3.579.2 .1259 1939 Unknown [id number] 2.16.840.1.705549.3.579.2 .1259 1939 Unknown [id number] 2.16.840.1.398971.3.579.2 .1259 1939 Unknown [id number] 2.16.840.1.093050.3.579.2 .1259 1939 Unknown [id number] 2.16.840.1.275030.3.579.2 .1259 1939 Unknown [id number] 2.16.840.1.004327.3.579.2 .1259 1939 Unknown [id number] 2.16.840.1.995856.3.579.2 .1259 1939 Unknown [id number] 2.16.840.1.360522.3.579.2 .1259 Unknown [id number] 2.16.840.1.897920.3.579.2 .531 Unknown [id number] 2.16.840.1.259867.3.579.2 .531 Unknown [id number] 2.16.840.1.196598.3.579.2 .531 Unknown [id number] [id number] .531 Social History Date Type Detail Facility Start: 12-30-2022 End: 04-08-2023 Tobacco smoking status NHIS Never smoked tobacco (finding) [facility] Start: 1940 Sex Assigned At Male [facility] Start: 01-14-2023 End: 04-08-2023 Tobacco use and exposure Smokeless tobacco non-user [facility] Work Phone: Start: 01-14-2023 End: 07-24-2023 Alcohol intake Lifetime non-drinker (finding) [facility] Work Phone: Start: 01-14-2023 End: 01-18-2024 History of Social function [facility] Work Phone: Start: 01-14-2023 End: 01-18-2024 Tobacco use panel [facility] Work Phone: Start: 1940 Sex Assigned At Not on file U [facility] Work Phone: Start: 01-04-2023 End: 07-24-2023 Exposure to SARS-CoV-2 (event) Not sure [facility] Start: 04-08-2023 End: 12-10-2023 Alcohol intake [facility] Start: 01-19-2024 Sex Male (finding) [facility] Start: 01-18-2024 End: 02-17-2024 Alcoholic beverage intake Ex-drinker (finding) [facility] How often to you hav e a drink containing alcohol? Never [facility] How many standard drinks containing alcohol do you have on a typical day? Patient does not drink [facility] Medical Equipment Procedure Code Equipment Code Equipment Origin al Text Equipment Identifier Dates Insertion, pacemaker Endocardial pacing lead [id number] FDA Start: 12-30-2022 Insertion, pacemaker Endocardial pacing lead [id number] FDA Start: 12-30-2022 Insertion, pacemaker Dual-chamber implantable pacemaker, rate-responsive [id number] FDA Start: 12-30-2022 Goals Date Patient Goal Desired Activity /State Functional Status Date Assessment Result Facility 12-31-2022 Functional status Patient at Baseline [facility] Work Phone: Mental Status Date Assessment Result Facility 12-31-2022 Cognitive function Cognitive Sta tus Patient at Baseline [facility] Work Phone: Clinical Notes 12-28-2022 to 02-17-2024 Jr. Gini Cárdenas, DO - 02/17/2024 10:00 AM Narinder Rome, DO - 01/18/2024 12:37 PM Narinder Rome, DO - 01/18/2024 9:15 AM Daya Camara, HAIM - 12/10/2023 1:40 PM EDT Note Date & Type Note Facility 02-17-2024 History of Present illness Narrative Images from the original note were not included. HISTORY OF PRESENT ILLNESS: EST PT Emmanuel Jiménez is an 83 y.o. @ male. (EST PT) RECHECK (R) SHOULDER ; S/P HEP XRAYS, 04/08/23 IN CHANGE / EPIC MRI 07/05/18 IN CHANGE (NO EPIC LINK) NO MDP / PREDNSIONE S/P AC JOINT CORTISONE INJ 04/08/23 S/P SA CORTISONE INJ 04/08/23, 05/17/18 NO PHYSICAL THERAPY NO PAIN MGMT NOTES IMPROVEMENT SINCE LAST VISIT. DOING HEP. PAIN ANTERIOR IN JOINT, STATES NOT BAD IT WAS. TAKING TYL PRN. DENIES N/T, SWELLING. ADMITS CRACKING. GOOD ROM. UNABLE TO LAY ON RT SIDE FOR VERY LONG. RECENT PACEMAKER ~ 12/20/22 ALLERGIES: No Known Allergies HOME MEDICATIONS: Current Outpatient Medications Medication Instructions acarbose (PRECOSE) 100 mg, Daily Docusate Calcium (STOOL SOFTENER PO) Take by mouth empagliflozin (JARDIANCE) 25 mg, Oral, Every morning ezetimibe (ZETIA) 5 mg, Daily Finerenone (KERENDIA PO) 20 mg metFORMIN (GLUCOPHAGE) 1,000 mg, Oral, 2 times daily with meals pen needle 33G x 4 mm misc Injections subcutaneous daily rosuvastatin (CRESTOR) 40 mg, Daily Tresiba FlexTouch 12 Units, Subcutaneous, Daily PHYSICAL EXAM: Shoulder Musculoskeletal Exam Inspection Right Right shoulder inspection is normal. Ecchymosis: none Peripheral edema: none Atrophy: none Masses: none Palpation Right Crepitus: no crepitus Increased warmth: none Tenderness: present Anterior shoulder: mild AC joint: mild Proximal biceps: moderate Lateral arm: mild Range of Motion Right Right shoulder range of motion is normal. Active ROM: pain. Passive ROM: pain. Active forward elevation: 90. Passive forward elevation: 160. Shoulder active abduction: 110. Passive abduction: 110. Active external rotation at side: 40. Passive external rotation at side: 40. Active external rotation in abduction: 40. Active internal rotation in abduction: 40. Passive internal rotation in abduction: 40. Internal rotation: L1. Strength Right External rotation: 5/5. Internal rotation: 5/5. Abduction: 3/5. Biceps: 5/5. Triceps: 5/5. Neurovascular Right Radial pulse: normal and 2+ Capillary refill: <3 sec Axillary nerve sensory distribution: normal Scapula Right Right shoulder scapula is normal. Position: normal Winging: none Special Tests Right Rotator Cuff Signs Neer's test: positive Moses test: positive Painful arc test: positive Biceps/devonte Signs Speed's test: positive General Constitutional: appears stated age Neurological: alert and oriented x3 Careful Vitals: There is no height or weight on file to calculate BMI. Tobacco Use: Low Risk (02/17/2024) Patient History Smoking Tobacco Use: Never Smokeless Tobacco Use: Never Passive Exposure: Not on file Alcohol Use: Not At Risk (01/18/2024) AUDIT-C Frequency of Alcohol Consumption: Never Average Number of Drinks: Patient does not drink Frequency of Binge Drinking: Never IMAGING: Procedures No orders of the defined types were placed in this encounter. ASSESSMENT: ICD-10-CM 1. Rotator cuff arthropathy, right M12.811 2. Shoulder arthritis M19.019 PLAN: He is progressing very well. He is pleased with his progress as am I. He refuses any surgical intervention. We have discussed his restrictions and home exercise program. I'll see him back on a when necessary basis. If his symptoms persist or worsen, we would reinject him. Questions answered in laymen terms at the bedside. The diagnosis, home exercise plan and any ongoing restrictions/ recommendations reviewed. If unable to be reached in office, I recommend evaluation at nearest Emergency Room if any symptoms worsened or new symptoms develop for requiring urgent evaluation. documented in this encounter [facility] 01-18-2024 History of Present illness Narrative Associated Problem(s): Type 2 diabetes mellitus with hyperglycemia, without long-term current use of insulin ([facility]) During the appointment today all pertinent labs, [...] they have any problems or questions. Emmanuel Jiménez is struggling to gain control of their diabetes. I am very concerned for diabetes related complications. , Instructions given today include: Hypoglycemia management and Insulin instructions. Will add basal insulin to improve control. He is to call if the numbers are not coming down. Images from the original note were not included. Emmanuel Jiménez is a 83 y.o. male presents with chief complaint of Diabetes HPI: Diabetes Mellitus Follow-up: Emmanuel Jiménez is here for follow-up evaluation of diabetes mellitus. The initial diagnosis of diabetes was made around 2019 Previously tried medications include: Jardiance Complications include: none He has been checking his blood glucose regularly. Bg running 200-250 in the am. Last A1c: 9.2 on 10/09/2023 Eye exam: 2022- Dr. Garrett/ Nicole Crum Current concerns include: Last office visit was on 12/03/2023 Bg have been higher the past month. Has been trying to limit portions. No signs/symptoms of infection or illness. No steroids. C/o of feeling unsteady on his feet when he walks and is fatigue. States he is very thirsty and drinks a lot of water during the day Asking for samples of jardiance if available. He takes 1/2 of a 25mg tablet Diet: Trying to limit portions Drinks: Water, coffee with sweetened creamer Exercise: Walking daily Hypoglycemia: none SUBJECTIVE: PROBLEM LIST SOCIAL ALLERGIES: Patient Active Problem List Diagnosis Type 2 diabetes mellitus with hyperglycemia, without long-term current use of insulin (CMS/HCC) HTN (hypertension) (CMS/HCC) Mixed hyperlipidemia (CMS/HCC) Mobitz type II atrioventricular block Localized, primary osteoarthritis of hand DVT (deep venous thrombosis) (CMS/HCC) Non-ischemic cardiomyopathy (CMS/HCC) Pacemaker Type 2 diabetes mell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, without long-term current use of insulin (HCC) ([facility]) Social History Tobacco Use Smoking status: Never Smokeless tobacco: Never Substance Use Topics Alcohol use: Not Currently Drug use: Never No Known Allergies Synopsis [facility] 01/18/2024 12/03/2023 12/01/2023 23:59 Antidiabetic medications Acarbose 2 (two) times a day (100 MG TABS)-Discontinued 2 (two) times a day (100 MG TABS) Acarbose 100 mg Daily PO (100 MG TABS) Empagliflozin 12.5 mg q AM PO (25 MG TABS)-Discontinued 12.5 mg q AM PO (25 MG TABS) Empagliflozin 25 mg q AM PO 25 mg q AM PO Insulin Glargine 15 Units Daily SC metFORMIN HCl Take 1,000 mg by mouth (500 MG TABS)-Discontinued (Dose adjustm) Take 500 mg by mouth metFORMIN HCl 1,000 mg BID with meals PO 1,000 mg BID with meals PO Semaglutide 1 mg Weekly SC (4 MG/3ML SOPN)-Discontinued 1 mg Weekly SC (4 MG/3ML SOPN) SITagliptin-metFORMIN HCl 1 tablet Daily PO (100-1000 MG TB24) -Discontinued Labs MHPT A1C 10.4 Outpatient prescription Medication marked as long-term Patient-reported The ASCVD Risk score (Caitie GARZON, et al., 2019) failed to calculate for the following reasons: The 2019 ASCVD risk score is only valid for ages 40 to 79 REVIEW OF SYMPTOMS: Review of Systems Constitutional: Positive for fatigue. Negative for appetite change and unexpected weight change. Eyes: Negative for visual disturbance. Respiratory: Negative for cough, shortness of breath and wheezing. Cardiovascular: Negative for chest pain, palpitations and leg swelling. Neurological: Negative for numbness. Endocrine: Negative for polydipsia, polyphagia and polyuria. OBJECTIVE: 01/18/2024 9:01 AM 12/10/2023 1:27 PM 12/03/2023 1:58 PM Vitals BMI 28.19 kg/m2 28.04 kg/m2 28.16 kg/m2 Systolic 110 102 Diastolic 66 68 Heart Rate 92 74 Temp 98 F 96.4 F Resp 17 Height (in) 5' 7 5' 7 5' 7 Weight (lb) 180 179 179.8 Visit Report Report Report Report Physical Exam Constitutional: General: [...] hyperglycemia, without long-term current use of insulin ([facility]) During the appointment today all pertinent labs, [...] they have any problems or questions. Emmanuel Jiménez is struggling to gain control of their diabetes. I am very concerned for diabetes related complications. , Instructions given today include: Hypoglycemia management and Insulin instructions. Will add basal insulin to improve control. He is to call if the numbers are not coming down. Type 2 diabetes mell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, without long-term current use of insulin (HCC) ([facility]) Relevant Medications insulin glargine (Lantus SoloStar) 100 UNIT/ML pen pen needle 33G x 4 mm misc Other Relevant Orders POCT glycosylated hemoglobin (Hb A1C) docked device (Completed) Follow up in about 3 months (around 04/19/2024) for Recheck. Patient's Medications New Prescriptions INSULIN GLARGINE (LANTUS SOLOSTAR) 100 UNIT/ML PEN Inject 15 Units under the skin Daily PEN NEEDLE 33G X 4 MM MISC Injections subcutaneous daily Previous Medications ACARBOSE (PRECOSE) 100 MG TABLET Take 100 mg by mouth Daily DOCUSATE CALCIUM (STOOL SOFTENER PO) Take by mouth EMPAGLIFLOZIN (JARDIANCE) 25 MG Take 1 tablet (25 mg) by mouth in the morning. EZETIMIBE (ZETIA) 10 MG TABLET Take 5 mg by mouth in the morning. FINERENONE (KERENDIA PO) Take 20 mg by mouth METFORMIN (GLUCOPHAGE) 500 MG TABLET Take 2 tablets (1,000 mg) by mouth in the morning and 2 tablets (1,000 mg) in the evening. Take with meals. ROSUVASTATIN (CRESTOR) 40 MG TABLET Take 40 mg by mouth in the morning. Modified Medications No medications on file Discontinued Medications No medications on file I have reviewed and reconciled the history and medication list with the patient today. documented in this encounter [facility] 01-14-2024 Telephone encounter Note noted [facility] 01-14-2024 Miscellaneous Notes noted P/c to remind pt of appointment. Pt had to reschedule because his has testing all day tomorrow. Rescheduled for Thursday at 9:15. He voiced understanding documented in this encounter [facility] 01-14-2024 Telephone encounter Note P/c to remind pt of appointment. Pt had to reschedule because his has testing all day tomorrow. Rescheduled for Thursday at 9:15. He voiced understanding [facility] 12-10-2023 History of Present illness Narrative Patient: [...] History: Past Medical History: Diagnosis Date Diabetes ([facility]) Hx of deep venous thrombosis Hyperlipemia ([facility]) Hypertension ([facility]) Medications: Current Outpatient Medications: empagliflozin (Jardiance) 25 [...] Negative palpable pedal pulses bilaterally NEURO: 5.07 Chrisman Claudia monofilament test intact to digits and forefoot bilaterally 125Hz tuning fork diminished to 1st MPJ bilaterally ORTHO: Positive pain on palpation to nails 1 through 10 ASSESSMENT 1. Type 2 diabetes mellitus without complication, unspecified whether glass technician insulin use ([facility]) 2. Pain due to onychomycosis of toenails [...] Kennedy Camara DPM documented in this encounter [facility] 12-03-2023 History of Present illness Narrative Associated Problem(s): Type 2 diabetes mellitus with hyperglycemia, without long-term current use of insulin ([facility]) During the appointment today all pertinent labs, [...] they have any problems or questions. Emmanuel Jiménez blood sugars are worsening. , Discussed dietary [...] occasion (cinnamon toast crunch- low sugar) Lunch: Corinne (ham), fruit (peaches, pears, melon) Dinner: Varies- [...] hyperglycemia, without long-term current use of insulin ([facility]) HTN (hypertension) ([facility]) Mixed hyperlipidemia ([facility]) Mobitz type II atrioventricular block Localized, primary osteoarthritis of hand DVT (deep venous thrombosis) ([facility]) Non-ischemic cardiomyopathy ([facility]) Pacemaker Type 2 diabetes mell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, without long-term current use of insulin ([facility]) ([facility]) Social History Tobacco Use Smoking status: Never [...] hyperglycemia, without long-term current use of insulin ([facility]) During the appointment today all pertinent labs, [...] disease, without long-term current use of insulin ([facility]) ([facility]/HCC) - Primary Relevant Medications empagliflozin (Jardiance) 25 [...] the patient today. documented in this encounter [facility] 12-02-2023 Telephone encounter Note Pt's answered the phone. Reminded her of her 's appointment tomorrow with Dr. Mccollum. voiced understanding [facility] 12-02-2023 Miscellaneous Notes Pt's answered the phone. Reminded her of her 's appointment tomorrow with Dr. Mccollum. voiced understanding documented in this encounter [facility] 07-24-2023 History of Present illness Narrative Karen [...] discussion and plan. documented in this encounter [facility] Work Phone: 07-24-2023 Instructions Sal Henson MA [...] of your visit. documented in this encounter [facility] Work Phone: 04-08-2023 History of Present illness [...] with 2ml of 2 % lidocaine (Code 44067 RT) Procedure, treatment alternatives, risks and benefits [...] evaluation. 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 documented in this encounter [facility] 01-14-2023 History of Present illness Narrative Karen [...] Obesity (BMI 30.0-34.9) documented in this encounter [facility] Work Phone: 01-14-2023 Instructions Lupe [...] up per routine documented in this encounter [facility] Work Phone: 12-31-2022 Progress note Note Date/Time December 31, 2022 10:25am [facility] [address] [place] [address] Cardiology Progress Note Signed Patient: Emmanuel Jiménez MR#: [id number] : 1940 Acct:[id number] Age/Sex: 82 / M Adm Date: 3 Loc: 3T Room: [address] [place] [address] Type: ADM IN Attending Dr: Katie Osborne [...] % (Auto) 61.2 Lymph % (Auto) 27.7 Valencia % (Auto) 8.9 Eos % (Auto) 1.6 Baso % (Auto) 0.6 Nucleat RBC Rel Count 0.0 Neut # (Auto) 4.1 Lymph # (Auto) 1.9 Valencia # (Auto) 0.6 Eos # (Auto) 0.1 Baso # (Auto) 0.0 PHA Creatinine Clear Sodium Potassium Chloride Carbon Dioxide Anion Gap BUN Creatinine Est GFR (CKD-EPI) Glucose POC Glucose 206 183 Calcium Magnesium 12/31/22 06:36 Corrected WBC Uncorrected WBC Count RBC Hgb Hct MCV MCH MCHC RDW Plt Count MPV Neut % (Auto) Lymph % (Auto) Valencia % (Auto) Eos % (Auto) Baso % (Auto) Nucleat RBC Rel Count Neut # (Auto) Lymph # (Auto) Valencia # (Auto) Eos # (Auto) Baso # [...] clinic as scheduled. 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 Hugo Moser henceforth Documented By: Henrry Issa MD 102 Signed By: <Electronically signed by MD Henrry Issa> 12/31/22 1033 [facility] Work Phone: 1(618) 956-985110-31-2023 Progress note Author Katie Osborne [facility] December 30, 2022 2:12pm Note Date/Time December 30, 2022 2 :12pm [facility] [address] [place] [address] Hospitalist Progress Note Signed Patient: Emmanuel Jiménez MR#: [id number] : 1940 Acct:[id number] Age/Sex: 82 / M Adm Date: 3 Loc: Room: [address] [place] [address] Type: ADM IN Attending Dr: Katie Osborne MD Copies to: ~ Date of Service: 12/30/2022 Subjective Subjective Narrative: Patient was seen and evaluated at bedside this morning. compliance monitor was reviewed, patient continued to have [...] ONCE PRN Administration bradycardia Ezetimibe 10 mg 10/29/23 13:15 12/30/22 08:24 Ezetimibe 10 Mg Tablet [...] Plan: ? Patient's baseline is unknown, at [place] his creatinine is 1.6, today here it is 1.4 ? Patient did receive atropine at [place], his heart rate has been improved while [...] signed by Katie Osborne MD> 12/30/22 1412 [facility] Work Phone: 1(646) 442-222010-30-2023 Progress note Author Henrry Issa [facility] December 29, 2022 2:16pm Note Date/Time December 29, 2022 2 :16pm [facility] [address] [place] [address] Cardiology Progress Note Signed Patient: Emmanuel Jiménez MR#: [id number] : 1940 Acct:[id number] Age/Sex: 82 / M Adm Date: 3 Loc: Room: [address] [place] [address] Type: ADM IN Attending Dr: Katie Osborne [...] block. Intermittently he is conducting in a [id number]. No observed manifestations of complete heart block. [...] % (Auto) 48.1 Lymph % (Auto) 41.3 Valencia % (Auto) 8.4 Eos % (Auto) 1.4 Baso % (Auto) 0.8 Nucleat RBC Rel Count 0.1 Neut # (Auto) 3.6 Lymph # (Auto) 3.1 Valencia # (Auto) 0.6 Eos # (Auto) 0.1 [...] MPV Neut % (Auto) Lymph % (Auto) Valencia % (Auto) Eos % (Auto) Baso % (Auto) Nucleat RBC Rel Count Neut # (Auto) Lymph # (Auto) Valencia # (Auto) Eos # (Auto) Baso # [...] signed by MD Henrry Issa> 12/29/22 1416 [facility] Work Phone: 1(203) 742-592410-30-2023 Progress note Author Katie Osborne [facility] December 29, 2022 1:57pm Note Date/Time December 29, 2022 1 :57pm [facility] [address] [place] [address] Hospitalist Progress Note Signed Patient: Emmanuel Jiménez MR#: [id number] : 1940 Acct:[id number] Age/Sex: 82 / M Adm Date: 3 Loc: 3T Room: [address] [place] [address] Type: ADM IN Attending Dr: Katie Osborne MD Copies to: ~ Date of Service: 12/29/2022 Subjective Subjective Narrative: Patient was seen and evaluated at bedside this morning. compliance monitor was reviewed, patient continued to have [...] Plan: ? Patient's baseline is unknown, at [place] his creatinine is 1.6, today here it is 1.4 ? Patient did receive atropine at [place], his heart rate has been improved while [...] <Electronically signed by Katie Osborne MD> 12/29/[address] [place] [address] Ctr Work Phone: 1(393) 835-482510-29-2023 Consult note Author Haylee Benedict [facility] December 28, 2022 7:25pm Note Date/Time December 28, 2022 7 :22pm [facility] [address] [place] [address] Cardiology Consult Note Signed Patient: Emmanuel Jiménez MR#: [id number] : 1940 Acct:[id number] Age/Sex: 82 / M Adm Date: 3 Loc: Room: [address] [place] [address] Type: ADM IN Attending Dr: Jarred Cline DO Copies to: DO Haylee Childers Jr, MD Shawn J Warner, DO~ Cardiology HPI History of Present Illness [...] negative unless noted below or in HPI [facility] Social History Smoking Status: Never smoker [...] telemetry. Documented By: Haylee Benedict MD 12/28/22 121 Signed By: <Electronically signed by Haylee Benedict MD> 12/28/221924 [facility] Work Phone: 1(133) 987-394210-29-2023 History and physical note Author Jarred Cline [facility] December 28, 2022 1:36pm Note Date/Time December 28, 2022 1 :21pm [facility] [address] [place] [address] Hospitalist H&P Signed Patient: Emmanuel Jiménez MR#: [id number] : 1940 Acct:[id number] Age/Sex: 82 / M Adm Date: 3 Loc: Room: [address] [place] [address] Type: ADM IN Attending Dr: Jarred Cline DO Copies to: Hugo Moser Jr, DO Jarred Cline, DO~ HPI DATE OF EXAMINATION: 12/28/22 CHIEF COMPLAINT: low heart rate HISTORY OF PRESENT ILLNESS: Mr Jiménez is an 82-year-old male with past medical history of diabetes and hypertension who presents hospital today with chief complaint of low heart rate. He was transferred here from [facility], he has been feeling exertional dyspnea [...] to the emergency room. He went to [place] ER was then transferred back here due to there being no cardiology services at [place]. Patient denies any cough with his shortness [...] Plan: ? Patient's baseline is unknown, at [place] his creatinine is 1.6, today here it is 1.4 ? Likely secondary to decreased perfusion from bradycardia ? Patient did receive atropine at [place], his heart rate has been improved while [...] 3 Documented By: Jarred Cline DO 12/28/22 1311 Signed By: <Electronically signed by Jarred Cline DO> 12/28/22 5025 [facility] Work Phone: Discharge summary Author Katie Osborne [facility] December 31, 2022 12:42pm Note Date/Time December 31, 2022 1 2:43pm [facility] [address] [place] [address] Discharge Summary Signed Patient: Emmanuel Jiménez MR#: [id number] : 1940 Acct:[id number] Age/Sex: 82 / M Adm Date: 3 Loc: Room: [address] [place] [address]: Katie Osborne MD Copies to: DO Katie Childers Jr, MD~ Providers Date of Discharge: 12/31/22 Discharging [...] heart rate. He was transferred here from [facility], he has been feeling exertional dyspnea [...] % (Auto) 61.2, Lymph % (Auto) 27.7, Valencia % (Auto) 8.9, Eos % (Auto) 1.6, Baso % (Auto) 0.6, Nucleat RBC Rel Count 0.0, Neut # (Auto) 4.1, Lymph # (Auto) 1.9, Valencia # (Auto) 0.6, Eos # (Auto) 0.1, [...] with nurse for incision check in the [facility] Office on - we will call you. 2. Chest x-ray to be done the same day as your device check at [facility] 04/15/2023. 3. Pacemaker/ICD clinic appointment at [facility] on 04/15/2023 at 11:00am . 4. Office [...] signed by Katie Osborne MD> 12/31/[address] [facility] Work Phone: Evaluation note* Diagnosis Onset Date Resolution Status ZAC (acute kidney injury) ac deering Diabetes mellitus acute HTN (hypertension) acute Mobitz type 2 second degree AV block acute [facility] Work Phone: Evaluation note* Diagnosis AV block, Mobitz II Mobitz (type) II atrioventricular block Pacemaker Cardiac pacemaker in situ Obesity (BMI 30.0-34.9) documented in this encounter [facility] Work Phone: Evaluation note* Diagnosis Acute pain of right shoulder Rotator cuff arthropathy, right Arthritis of right acromioclavicular joint documented in this encounter [facility] HealthcareEvaluation noteNo assessment information available[facility] Work [facility] note* Diagnosis Non-ischemic cardiomyopathy (Multi)- Primary Other primary cardiomyopathies AV block, Mobitz II Mobitz (type) II atrioventricular block Pacemaker Cardiac pacemaker in situ Mixed hyperlipidemia BMI 30.0-30.9,adult documented in this encounter [facility] Work Phone: Evaluation note* Diagnosis Type 2 diabetes mell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, without long-term current use of insulin (HCC) ([facility]/HCC)- Primary Type 2 diabetes mellitus with hyperglycemia, without long-term current use of insulin ([facility]) documented in this encounter [facility] HealthcareEvaluation note* Diagnosis Type 2 diabetes mellitus without complication, unspecified whether prison insulin use ([facility])- Primary Pain due to onychomycosis of toenails of both feet documented in this encounter [facility] HealthcareEvaluation note* Diagnosis Type 2 diabetes mell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, without long-term current use of insulin (HCC) ([facility])- Primary Type 2 diabetes mellitus with hyperglycemia, without long-term current use of insulin ([facility]) Type 2 diabetes mell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, without long-term current use of insulin (HCC) ([facility]) Type 2 diabetes mellitus with hyperglycemia, without long-term current use of insulin ([facility]) documented in this encounter [facility] HealthcareEvaluation note* Diagnosis Type 2 diabetes mell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, without long-term current use of insulin (HCC) ([facility])- Primary Type 2 diabetes mellitus with hyperglycemia, without long-term current use of insulin ([facility]) Type 2 diabetes mell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, without long-term current use of insulin (HCC) ([facility]) Type 2 diabetes mellitus with hyperglycemia, without long-term current use of insulin ([facility]) Rotator cuff arthropathy, right- Primary Shoulder arthritis Unspecified arthropathy, shoulder region documented in this encounter [facility] HealthcareHospital Discharge instructions Additional Instructions DISCHARGE INSTRUCTIONS FOR [...] with nurse for incision check in the [facility] Office on - 01/08/2023 at 1:30pm. 2. Chest x-ray to be done the same day as your device check at [facility] 04/15/2023. 3. Pacemaker/ICD clinic appointment at [facility] on 04/15/2023 at 11:00am . 4. Office visit with Dr. Moser. [][facility] Work Phone: Reason for referral (narrative)* Consultation (Routine) - Authorized Specialty Diagnoses / Procedures Referred By Contac t Referred To Contact Cardiology Diagnoses AV block, Mobitz II Pacemaker Procedures Follow Up In Cardiology Henrry Issa MD [address] [place] [address], [address] [address] Henrry Issa MD [address] [place] [address], [address] [address] Referral ID Status Reason Start Date Expiration Date V isits Requested Visits Authorized [id number] Authorized 01/14/2023 01/14/2024 1 1 [facility] Work Phone: Rermcp for referral (narrative)* Consultation (Routine) - Authorized Specialty Diagnoses / Procedures Referred By Contac t Referred To Contact Cardiology Diagnoses AV block, Mobitz II Procedures Follow Up In Cardiology Henrry Issa MD [address] [place] [address], [address] [address] Stephanie Steward MD [address] [place] [address], [address] [address] Referral ID Status Reason Start Date Expiration Date V isits Requested Visits Authorized [id number] Authorized 07/24/2023 07/23/2024 1 1 [facility] Work Phone: Summary Purpose Family History No [...] block. Chief Complaint 2nd degree av block Chief Complaint Admit Date 2nd degree av block December 01, 2023 11 :42am i44.1 z95.0 January 15, 2024 7:41am Reason for Referral Specialty Diagnoses / Procedures Referred By Milan stallings Referred To Contact Orthopaedic Surgery Diagnoses Arthritis of right acromioclavicular joint Procedures M Inj/Asp: R acromioclavicular Trip Brown PA [address] [facility] [address] [place] [address] Referral ID Status Reason Start Date Expiration Date V isits Requested Visits Authorized [id number] Pending Review 04/08/2023 10/05/2023 1 1 Specialty Diagnoses / Procedures Referred By Milan stallings Referred To Contact Orthopaedic Surgery Diagnoses Rotator cuff arthropathy, right Procedures L Inj/Asp: R subacromial bursa Trip Brown PA [address] [address] Referral ID Status Reason Start Date Expiration Date V isits Requested Visits Authorized [id number] Authorized 04/08/2023 10/05/2023 1 1 Additional Source Comments (unrecognized sect ion and content) No Status Records FoundNo Status Records FoundNo Status Records FoundNo Status Records Found INFORMATION SOURCE (unrecogn ized section and content) DATE CREATED AUTHOR 05/25/2022 [facility] DATE CREATED AUTHOR AUTHOR'S ORGANIZ ATION 11/17/2023 [facility] DATE CREATED AUTHOR AUTHOR'S ORGANIZ ATION 01/23/2024 [facility] DATE CREATED AUTHOR AUTHOR'S ORGANIZ ATION 02/20/2024 [facility] EPIC Care Teams (unrecognized sec tion and content) Team Status: Active Member Role Status Dates Hugo Moser JR DO Primary Care Provider Active Team Status: Active Member Role Status Dates Hugo Moser JR DO Primary Care Provider Active Start: December 01, 2023 Henrry Issa MD Other Provider Active Start: December 01, 2023 Cristian Teran MD Attending Provider Active Start: December 01, 2023 Team Status: Active Member Role Status Dates Hugo Moser JR DO Primary Care Provider Active Start: January 15, 2024 Stephanie Steward MD Other Provider Active Start: January 15, 2024 Cristian Teran MD Attending Provider Active Start: January 15, 2024 Team Status: Inactive Member Role Status Dates [...] Active Natacha Padron MD Other Provider Active Kangjanay Douglas MD Other Provider Active Jordan Bolanos MD Other Provider Active Nikia Woodward [facility] Other Provider Active Lauren Steiner MD Other Provider Active Team Status: Inactive Member Role Status Dates Hugo Moser JR DO Primary Care Provider Active Henrry Issa MD Attending Provider Active Director Ehs Relationship Specialty Start Date End Date Hugo Moser DO [address] [place] [id number] PCP - General Internal Medicine 12/31/22 Director Ehs Relationship Specialty Start Date End Date Hugo Moser MD [address] [facility] [place], [place] [phone] PCP - General Internal Medicine 04/08/23 Team Status: Inactive Member Role Status Dates Hugo Moser JR DO Primary Care Provider Active Start: April 15, 2023 End: April 15, 2023 Henrry Issa MD Referring Provider Active Start: April 15, 2023 End: April 15, 2023 Sangita Salas APRN Attending Provider Active Start: April 15, 2023 End: April 15, 2023 Director Ehs Relationship Specialty Start Date End Date Hugo Moser DO PCP - General Internal Medicine 12/31/22 Team Status: Inactive Member Role Status Dates Hugo Moser JR DO Primary Care Provider Active Start: October 16, 2023 End: October 16, 2023 Henrry Issa MD Attending Provider Active Start: October 16, 2023 End: October 16, 2023 Director Ehs Relationship Specialty Start Date End Date Hugo Moser MD [address] [place] [address] [place], [place] [id number] PCP - General Internal Medicine 04/08/23 Director Ehs Relationship Specialty Start Date End Date Hugo Moser MD [facility] [place], [place] [id number] PCP - General Internal Medicine 04/08/23 Director Ehs Relationship Specialty Start Date End Date Hugo Moser MD [address] [facility] [place], [place] [id number] PCP - General Internal Medicine 04/08/23 Director Ehs Relationship Specialty Start Date End Date Hugo Moser MD [address] [facility] [place], [place] [id number] PCP - General Internal Medicine 04/08/23 Director Ehs Relationship Specialty Start Date End Date Hugo Moser MD [address] [place] [id number] PCP - General Internal Medicine 04/08/23 Director Ehs Relationship Specialty Start Date End Date Hugo Moser MD [address] [place] [id number] PCP - General Internal Medicine 04/08/23 Director Ehs Relationship Specialty Start Date End Date Hugo Moser MD [address] [place] [id number] PCP - General Internal Medicine 04/08/23 Director Ehs Relationship Specialty Start Date End Date Hugo Moser MD [address] [place] [id number] PCP - General Internal Medicine 04/08/23 Director Ehs Relationship Specialty Start Date End Date Hugo Moser MD [address] [place] [id number] PCP - General Internal Medicine 04/08/23 Reason for Visit (unrecogniz ed section and content) Reason Comments Follow-up Swelling and pain at pacemaker site.Placed 2 weeks ago. Specialty Diagnoses / Procedures Referred By Contac t Referred To Contact Cardiology Diagnoses AV block, Mobitz II Pacemaker Procedures Follow Up In Cardiology Henrry Issa MD [address] [id number] Referral ID Status Reason Start Date Expiration Date V isits Requested Visits Authorized [id number] Authorized 01/14/2023 01/14/2024 1 1 Reason Comments Pain Reason Comments Follow-up 6 month Specialty Diagnoses / Procedures Referred By Contac t Referred To Contact Cardiology Diagnoses AV block, Mobitz II Pacemaker Procedures Follow Up In Cardiology Hernry Issa MD [address] [facility] [address], [place] [address] [place] [address] Henrry Issa MD [address] [facility] 2, [facility] [address] [place] [address] Referral ID Status Reason Start Date Expiration Date V isits Requested Visits Authorized [id number] Authorized 01/14/2023 01/14/2024 1 1 Reason Comments Diabetes Reason Comments DM Foot Care Dm nail care Reason Comments Follow-up Goals (unrecognized section and content) Goals may be documented in a n alternate sectionGoals may be documented in an alternate sectionGoals may be documented in an [...] BE BASED ON THE PRIMARY CLINICAL RECORDS. [employer] provides no warranty or guarantee of the accuracy or completeness of information in this document.
--- NOTE | 2024-02-29 08:48 | ED.GENADUL1 ---
HPI HPI - General Adult General Chief complaint: Fall Stated complaint: FALL TROUBLES BREATHING Time Seen by Provider: 02/29/24 08:29 Source: patient Mode of arrival: walk-in Limitations: no limitations History of Present Illness HPI narrative: Patient present to ED after a fall. He said he fell 2 nights ago going to bed. He tripped and there is a chair in between his bed and his dresser and he fell on that. He said he hit his head and left elbow and left ribs. He said it took him about an hour to get himself back up off the ground. He said he has been ambulating without any difficulty no headache no neck pain. He said his elbow is fine it just has a scrape on it but no pain in the elbow. He said what brought him in was the left sided rib pain. Patient states it hurts to take a deep breath and or cough or palpate the left side of the rib. No shortness of breath no hypoxia. No fevers. He denies being on any blood thinners. He said his is in the hospital and it has been stressful otherwise no other complaints at this time. Related Data Previous Rx's ?Medication ?Instructions ?Recorded oxycodone-acetaminophen 5 mg-325 1 tab PO Q6H PRN pain #14 tabs 02/29/24 mg tablet (Percocet) Allergies Allergy/AdvReac Type Severity Reaction Status Date / Time No Known Drug Allergies Allergy Verified 02/29/24 08:21 Opioid HPI Opioid Management Most Recent Opioid Data: No Data to Display Review of Systems ROS Status of ROS 10 or more systems reviewed and unremarkable except as noted in history and below PFSH PFSH Social History Little interest or pleasure in doing things: not at all Feeling down, depressed, or hopeless: not at all Exam Narrative Exam Narrative: Time Seen: [] Vital Signs: [Per nurse's notes.] General: [Alert] Skin: [Warm, dry, no rash.] Head: [Normocephalic, small abrasion to the top of his head Neck: [Supple, trachea midline.] No C-spine tenderness Eye: [Pupils are equal, round and reactive to light, extraocular movements are intact, normal conjunctiva.] Ears, nose, mouth and throat: oral mucosa moist. Cardiovascular: [Regular rate and rhythm, no murmur.] Respiratory: [Lungs are clear to auscultation, respirations are non-labored, breath sounds are equal.] Chest wall: Tenderness to palpation in the left anterior lateral ribs around rib 6 and 7 Gastrointestinal: [Soft, nontender, non distended, normal bowel sounds.] MSK: 5 out of 5 muscle strength x 4 extremities no calf pain or edema. Abrasion to left elbow no tenderness with range of motion of the left elbow joint Psychiatric: [Cooperative, appropriate mood & affect.] Neurological: [Alert and oriented to person, place, time, and situation, no focal neurological deficit observed.] Constitutional Vital Signs, click to edit/add: Last Vital Signs Temp 98.1 F 02/29/24 08:21 Pulse 98 H 02/29/24 08:21 Resp 20 02/29/24 08:21 BP 143/77 H 02/29/24 08:21 Pulse Ox 96 02/29/24 08:21 O2 Del Method Room Air 02/29/24 08:21 Course Vital Signs Vital signs: Vital Signs Temperature 98.1 F 02/29/24 08:21 Pulse Rate 98 H 02/29/24 08:21 Respiratory Rate 20 02/29/24 08:21 Blood Pressure 143/77 H 02/29/24 08:21 Pulse Oximetry 96 02/29/24 08:21 Oxygen Delivery Method Room Air 02/29/24 08:21 Temperature 98.1 F 02/29/24 08:21 Pulse Rate 98 H 02/29/24 08:21 Respiratory Rate 20 02/29/24 08:21 Blood Pressure 143/77 H 02/29/24 08:21 Pulse Oximetry 96 02/29/24 08:21 Oxygen Delivery Method Room Air 02/29/24 08:21 Medical Decision Making MDM Narrative Medical decision making narrative: Patient's x-ray does not show any obvious acute rib fracture. Clinically he has a rib fracture or contused ribs on the left. No pneumothorax. Patient will be sent home with pain medication. Return to ED if worsening symptoms shortness of breath worsening pain syncope or any further concerns. Patient was comfortable with care plan for home. He ambulated in ED without difficulty and was able to get himself dressed. Patient states he will follow-up with family doctor or return if worse Differential Diagnosis Differential Diagnosis: Fracture strain pneumothorax contusion Imaging Data Chest x-ray: Radiologist's impression: ITS Impressions Ribs X-Ray 02/29/24 08:24 IMPRESSION: 1. No appreciable rib fracture. 2. Stable elevated left hemidiaphragm. 3. Mild left lower lobe atelectasis versus infiltrates. Electronically authenticated by: CONSTANTINE FLOWER Date: 02/29/2024 08:57 Discharge Plan Discharge Chief Complaint: Fall Clinical Impression: Contusion of rib on left side Patient Disposition: Home, Self-Care Time of Disposition Decision: 09:14 Condition: Good Mode of Transportation: Private Vehicle Prescriptions / Home Meds: New oxycodone-acetaminophen [Percocet] 5-325 mg tablet 1 tab PO Q6H PRN (Reason: pain) Qty: 14 0RF Print Language: Israeli Instructions: Rib Contusion (ED) Referrals: KEN MOSER DO [Primary Care Provider] - 1 week Discharge Date/Time: 02/29/24 09:38
== END 2024-02-29 09:38 | disposition home or self-care (01) ==
PROVIDERS: Emergency Provider Emergency Medicine; PCP Internal Medicine
DX: S20.212A Contusion of left front wall of thorax, initial encounter (principal); S50.312A Abrasion of left elbow, initial encounter; W01.190A Fall on same level from slipping, tripping and stumbling with subsequent striking against furniture, initial encounter
CPT/HCPCS: 71101; 99283

== ENCOUNTER 2024-03-19 19:16 | Emergency (ER) | payer MEDICARE, SELFPAY ==
--- OUTSIDE RECORDS SUMMARY | 2024-03-19 19:22 | XMS_ITS | CCD ---
Author Organization [facility] Care Team Providers [facility] [place] [facility] Director Name Role Phone VINODONE, DR ARIAS Admitting Unavailable VALONE, DR ARIAS Attending Unavailable VALONE, DR ARIAS Primary Care Unavailable VALONE, DR ARIAS Consulting Unavailable VALONE, DR ARIAS Admitting Unavailable VALONE, DR ARIAS Attending Unavailable VALONE, DR ARIAS Primary Care Unavailable VALONE, DR ARIAS Consulting Unavailable VALONE, DR ARIAS Admitting Unavailable VALONE, DR ARIAS Attending Unavailable VALONE, DR ARIAS Primary Care Unavailable VALONE, DR ARIAS Consulting Unavailable Ciro, JR Hugo Ferris Primary Care Provider DO [...] Provider MD Jordan Bolanos Other Provider Criss[facility] Nikia Ferris Other Provider [phone] MD Lauren Steiner Other Provider [phone] [...] Provider MD Jordan Bolanos Other Provider Criss[facility] Nikia Ferris Other Provider MD Lauren Steiner Other Provider MD Henrry Issa Attending Provider Hugo Moser DO Primary Care Provider Hugo Moser MD Primary Care Provider JR Hugo Moser Primary Care Provider MD Henrry Issa Referring Provider BHAVIN Gregorio Attending Provider Hugo Moser DO Primary Care Provider [phone] JR Hugo Moser Primary Care Provider MD Henrry Issa Attending Provider Hugo Moser Primary Care Unavailable Sangita Salas [...] Attending Unavailpamela CÁRDENAS JR., GINI Griffin Attending UnavailVEDA Edwards Attending Unavailable HUGO MOSER Referring Unavailable KENNEDY CAMARA Attending Unavailable VEDA ROME Attending Unavailable JR. NASREEN, GINI Griffin Attending UnavailHENRRY Smallwood Attending Unavailable HENRRY ISSA Referring Unavailable HUGO MOSER Primary Care Unavailable STEPHANIE STEWARD Attending Unavailable HENRRY ISSA Referring Unavailable HUGO MOSER Primary Care Unavailable Medications Current Medications Medication Drug Class(es) Dates Sig (Normalized) Sig (Original) acarbose 100 mg oral tablet (17 sources) alpha-Glucosidase Inhibitor Start: 12-28-2022 take 1 [...] Active 600 MG PO Three times daily 01 31December 30, 2022 11:00pm Start: 12-31-2022 take 600 mg by mouth three times daily Clindamycin Hcl Active 600 MG PO Three times daily 12 December 31, 2022 12:00am Docusate (5 sources) Docusate Calcium (STOOL SOFTENER PO) Take by mouth Active empagliflozin 25 mg oral tablet (20 sources) Sodium-Glucose Cotransporter 2 Inhibitor Start: 11-11-19 take 1 tablet by mouth once daily before mealtime Jardiance 25 mg Take 1 tablet (25 mg) by mouth once daily in the morning. Take before meals. 11/10/2022 Active End: 12-03-2023 take 12.5 mg by mouth in the morning Jardiance 25 MG Take 12.5 mg by mouth in the morning. 12/03/2023 Discontinued ezetimibe 10 mg oral tablet (20 sources) Dietary Cholesterol Absorption Inhibitor Start: 12-16-2022 take 0.5 tablet by mouth once daily ezetimibe (Zetia) 10 mg tablet Take 0.5 tablets (5 mg) by mouth once daily. 12/16/2022 Active Start: 12-16-2022 take 1 tablet by mouth once da jamil Ezetimibe 10 mg tablet Active 10 MG PO Daily December 27, 2022 11:00pm take 5 mg by mouth in the mornin g ezetimibe (Zetia) 10 MG tablet Take 5 mg by mouth in the morning. Active finerenone (KERENDIA ORAL) (2 sources) take 1 tablet by dannie th once [...] hyperglycemia, without long-term current use of insulin ([facility]) Inject 12 Units under the skin Daily 15 mL 3 01/18/2024 Active metFORMIN hydrochloride 500 mg oral tablet (16 sources) Biguanide Start: 06-25-2023 metFORMIN (Glu cophage) 500 mg tablet Take 1 tablet (500 mg) by mouth. Take one tablet by mouth at noon and two tablets by mouth at supper 06/25/2023 Active Start: 06-25-2023 End: 12-03-2023 take 2 tablets by mouth in the morning metFORMIN (Glucophage) 500 MG tablet Take 2 tablets (1,000 mg) by mouth in the morning and 2 tablets (1,000 mg) in the evening. Take with meals. 360 tablet 3 12/03/2023 Active 24 hr metFORMIN hydrochloride 1000 mg [...] 1 mg/dose (4 mg/3 mL) pen injector (2 sources) Start: 05-18-2023 inject 1 mg by subcutaneous [...] long-term current use of insulin (HCC) (CMS/HCC) Injections subcutaneous daily 100 each 3 01/18/2024 Active rosuvastatin calcium 40 mg oral tablet (20 sources) HMG-CoA Reductase Inhibitor Start: 11-11-2022 take 1 tablet by mouth once daily rosuvastatin (Crestor) 40 mg tablet Take 1 tablet (40 mg) by mouth once daily. 11/11/2022 Active sacubitril 24 mg / valsartan 26 mg [...] long-term current use of insulin (HCC) (CMS/HCC) Inject 15 Units under the skin Daily [...] 12/03/2023 Discontinued rivaroxaban 20 mg oral tablet (10 sources) Factor Xa Inhibitor Start: 3 End: 5 take 1 tablet by mouth once daily Xarelto 20 mg tablet Take 1 tablet (20 mg) by mouth once daily. 12/08/2022 03/09/2024 Discontinued (Discontinued by another clinician) Semaglutide-Weight Management 0.5 MG/0.5ML solution auto-injector (2 [...] request of Phys. EHR Cmte Cardiac dysrhythmias (1 source) Paroxysmal atrial fibrillation; Translations: [Paroxysmal atrial fibrillation] 03-09-2024 Chronic Cardiac dysrhythmias (10 sources) Bradycardia; Translations: [Bradycardia, [...] 2 12-03-2023 Chronic Diabetes mellitus without complication (16 sources) Diabetes mellitus; Translations: [Type 2 diabetes mellitus without complications] Onset: 3 12-28-2022 Chronic Comment on above: Problem List clean-u p per request of Phys. 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] 03-09-2024 Chronic Hypertension with complications and secondary hypertension [...] 04-08-2023 Chronic Other aftercare (1 source) Other care home (current) drug therapy; Translations: [OTH [employer] ATTORNEY 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 THERAPY] Onset: 3 Episodic Other non-traumatic joint disorders (3 sources) Rotator cuff arthropathy of right shoulder; Translations: [Other specific arthropathies, not elsewhere classified, right shoulder] 04-08-2023 Chronic Other non-traumatic joint disorders (1 source) Pain in right shoulder; Translations: [Pain in joint, shoulder region] 04-07-2023 Episodic Other nutritional; endocrine; and metabolic disorders (4 sources) Obese class I; Translations: [Obesity, unspecified] Onset: 3 01-14-2023 Chronic Other nutritional; endocrine; and metabolic disorders (3 sources) Body mass index 30+ - obesity; Translations: [Body mass index (BMI) 30.0-30.9, adult] Onset: 4 07-24-2023 Chronic Other nutritional; endocrine; and metabolic disorders (2 sources) Body mass index (BMI) 30.0-30.9, adult; Translations: [Body mass index (BMI) 30.0-30.9, adult] Onset: 4 Chronic Other nutritional; endocrine; and metabolic disorders (2 sources) Overweight in adulthood with body mass index of 25 or more but less than 30; Translations: [Body mass index (BMI) 28.0-28.9, adult] Onset: 5 03-09-2024 Episodic Other nutritional; endocrine; and metabolic disorders (1 source) Overweight; Translations: [Overweight] 03-09-2024 Episodic Other nutritional; endocrine; and metabolic disorders (2 sources) Body mass index (BMI) 28.0-28.9, adult; Translations: [Body mass index (BMI) 28.0-28.9, adult] Onset: 5 Episodic Shauna-; endo-; and myocarditis; cardiomyopathy (except that caused by tuberculosis or sexually transmitted disease) (20 sources) Cardiomyopathy; Translations: [Other cardiomyopathies] Onset: 3 01-14-2023 Chronic Residual codes; unclassified (2 sources) Never smoked tobacco; Translations: [Other specified health status] Onset: 5 03-09-2024 Episodic Residual codes; unclassified (2 sources) Other specified health status; Translations: [Other specified health status] Onset: 5 Episodic Unclassified (1 source) CHRN KIDNEY DISEASE STG 3 UNSP; Translations: [CHRN KIDNEY DISEASE STG 3 UNSP] Onset: 2 Unclassified (1 source) Encounter for checking and testing of cardiac pacemaker pulse generator [battery]; Translations: [Encounter for checking and testing of cardiac pacemaker pulse generator [battery]] Onset: 4 Past or Other Problems Problem Classification Problem Date Documented Da te Episodic/Chronic Phlebitis; thrombophlebitis and thromboembolism (16 sources) Deep venous thrombosis; Translations: [Acute embolism and thrombosis of unspecified deep veins of unspecified lower extremity] Onset: 01-14-2023 01-14-2023 Episodic Unclassified (3 sources) Onset: 01-14-2023 Resolved: 03-09-2024 01-14-2023 Results Test Name Value Interpretation Reference Range Facility ECG 12 [place] 03-09-2024 ECG reveals atrial s ensing and ventricular pacing rhythm, abnormal ECG [facility] Work Phone: HbA1c (Bld) [Mass fraction]o n 01-18-2024 Interpretation and review of laboratory results Abnormal [facility] Laboratory - Hematology and Cell countson 01-18-2024 HbA1c (Bld) [Mass fraction] 10.4 % [facility] XR chest 2V*on 04-15-2023 XR chest 2V* [facility] Main [address] [address] XRay Report Signed Patient: Emmanuel Jiménez MR#: [id number] : 1940 Acct:[id number] Age/Sex: 82 / M ADM Date: 04/15/23 Loc: [facility] Room: Type: [facility] Attending Dr: Sangita Salas [employer] Copies to: BHAVIN Beasley MD Ordering Provider: [...] Niki Scott M.D.04/15/2023 2:33 PM Dictation Location: [place] [address] Transcribed By: [facility] 04/15/23 1433 Dictated By: Niki Scott MD 04/15/23 1431 Signed By: 04/15/23 1433 Normal [facility] L Inj/Asp: R subacromial bur [...] with 2ml of 2 % lidocaine (Code 51296 RT) Procedure, treatment alternatives, risks and benefits explained, specific risks discussed. Consent was given by the patient. [facility] M Inj/Asp: R acromioclavicul garrett [...] and draped in the usual sterile fashion. [facility] Basophils Auto (Bld) [#/Vol] Ordered By: Jarred Cline on 12-31-2022 Basophils (Bld) [#/Vol] 0.0 10*3/uL 0.0-0.2 [facility] Basophils/100 WBC Auto (Bld) Ordered By: Jarred Cline on 12-31-2022 Basophils/100 WBC (Bld) 0.6 % . [facility] Calcium [Mass/volume] in Ser um or PlasmaOrdered By: Jarred Cline on 12-31-2022 Calcium [Mass/Vol] 8.9 mg/dL 8.6-10.3 [facility] Carbon dioxide, total [Moles /volume] in Serum or PlasmaOrdered By: Jarred Cline on 12-31-2022 CO2 [Moles/Vol] 22.9 mmol/L 21.0-31.0 [facility] Chloride [Moles/volume] in S chiquis or PlasmaOrdered By: Jarred Cline on 12-31-2022 Chloride [Moles/Vol] 106 mmol/L 98-107 [facility] Creatinine [Mass/volume] in Serum or PlasmaOrdered By: Jarred Cline on 12-31-2022 Creatinine [Mass/Vol] 1.20 mg/dL 0.70-1.30 [facility] Eosinophils Auto (Bld) [#/Vo l]Ordered By: Jarred Cline on 12-31-2022 Eosinophils (Bld) [#/Vol] 0.1 10*3/uL 0.0-0.45 [facility] Eosinophils/100 WBC Auto (Bl d)Ordered By: Jarred Cline on 12-31-2022 Eosinophils/100 WBC (Bld) 1.6 % . [facility] Erythrocyte distribution wid th Auto (RBC) [Ratio]Ordered By: Jarred Cline on 12-31-2022 Erythrocyte distribution width (RBC) [Ratio] 14.9 % 12.0-14.8 [facility] Glucose [Mass/volume] in Ser um or PlasmaOrdered By: Jarred Cline on 12-31-2022 Glucose [Mass/Vol] 175 mg/dL 70-100 [facility] Comment on above: ADA recommended refe rence rangeRandom Glucose Reference Range is dependent on time and content of last meal. Glucose of more than 200 mg/dL in a nonstressed, ambulatory subject supports the diagnosis of Diabetes Mellitus. Hematocrit Auto (Bld) [Volum e fraction]Ordered By: Jarred Cline on 12-31-2022 Hematocrit (Bld) [Volume fraction] 39.1 % 38.8-50.0 [facility] Hemoglobin [Mass/volume] in BloodOrdered By: aJrred Cline on 12-31-2022 Hemoglobin (Bld) [Mass/Vol] 13.0 g/dL 13.0-17.0 [facility] Leukocytes [#/volume] correc adela for nucleated erythrocytes in Blood by Automated counOrdered By: Jarred Cline on 12-31-2022 WBC corrected for nucl RBC Auto (Bld) [#/Vol] 6.7 10*3/uL 4.1-10.5 [facility] Lymphocytes Auto (Bld) [#/Vo l]Ordered By: Jarred Cline on 12-31-2022 Lymphocytes (Bld) [#/Vol] 1.9 10*3/uL 1.00-4.8 [facility] Lymphocytes/100 WBC Auto (Bl d)Ordered By: Jarred Cline on 12-31-2022 Lymphocytes/100 WBC (Bld) 27.7 % . [facility] MCH Auto (RBC) [Entitic mass ]Ordered By: Jarred Cline on 12-31-2022 MCH (RBC) [Entitic mass] 30.5 pg 27.5-35.2 [facility] MCHC Auto (RBC) [Mass/Vol]Or dered By: Jarred Cline on 12-31-2022 MCHC (RBC) [Mass/Vol] 33.3 g/dL 32.5-35.6 [facility] MCV Auto (RBC) [Entitic vol] Ordered By: Jarred Cline on 12-31-2022 MCV (RBC) [Entitic vol] 91.5 fL 83.5-101 [facility] Magnesium [Mass/volume] in S chiquis or PlasmaOrdered By: Jarred Cline on 12-31-2022 Magnesium [Mass/Vol] 2.1 mg/dL 1.9-2.7 [facility] Monocytes Auto (Bld) [#/Vol] Ordered By: Jarred Cline on 12-31-2022 Monocytes (Bld) [#/Vol] 0.6 10*3/uL 0.0-0.8 [facility] Monocytes/100 WBC Auto (Bld) Ordered By: Jarred Cline on 12-31-2022 Monocytes/100 WBC (Bld) 8.9 % . [facility] Neutrophils Auto (Bld) [#/Vo l]Ordered By: Jarred Cline on 12-31-2022 Neutrophils (Bld) [#/Vol] 4.1 10*3/uL 1.8-7.7 [facility] Neutrophils/100 WBC Auto (Bl d)Ordered By: Jarred Cline on 12-31-2022 Neutrophils/100 WBC (Bld) 61.2 % . [facility] No Panel InformationOrdered By: Jarred Cline on 12-31-2022 Estimated GFR (CKD-EPI) > 60.0 mL/Min [facility] Creatinine Clearance (Chem 48.99 [facility] Nucleated erythrocytes [Pres ence] in Blood by Automated countOrdered By: Jarred Cline on 12-31-2022 Nucleated RBC Auto Ql (Bld) 0.0 /100{WBC} 0-0.5 [facility] Platelet mean volume Auto (B ld) [Entitic vol]Ordered By: Jarred Clien on 12-31-2022 Platelet mean volume (Bld) [Entitic vol] 7.2 fL 6.6-10.1 [facility] Platelets Auto (Bld) [#/Vol] Ordered By: Jarred Cline on 12-31-2022 Platelets (Bld) [#/Vol] 148 10*3/uL 150-450 [facility] Potassium [Moles/volume] in Serum or PlasmaOrdered By: Jarred Cline on 12-31-2022 Potassium [Moles/Vol] 4.1 mmol/L 3.5-5.1 [facility] RBC Auto (Bld) [#/Vol]Ordere d By: Jarred Cline on 12-31-2022 RBC (Bld) [#/Vol] 4.27 10*6/uL 3.90-5.60 [facility] Serum or plasma anion gap de terminationOrdered By: Jarred Cline on 12-31-2022 Anion gap [Moles/Vol] 12.2 mmol/L 6.0-15.[address] [facility] Sodium [Moles/volume] in Ser um or PlasmaOrdered By: Jarred Cline on 12-31-2022 Sodium [Moles/Vol] 137 mmol/L 136-145 [facility] Urea nitrogen [Mass/volume] in Serum or PlasmaOrdered By: Jarred Cline on 12-31-2022 Urea nitrogen [Mass/Vol] 23 mg/dL 7-25 [facility] WBC Auto (Bld) [#/Vol]Ordere d By: Jarred Cline on 12-31-2022 WBC (Bld) [#/Vol] 6.7 10*3/uL 4.1-10.5 [facility] Activated partial thrombopla stin time (aPTT) in platelet poor plasma by coagulation aOrdered By: Henrry Issa on 12-30-2022 aPTT Coag (PPP) [Time] 30.2 s 25.1-36.[address] [facility] Comment on above: A hematocrit value g reater than 55% may lead to inaccurate results in coagulation testing. Patients having hematocrit values >55% require a special collection tube for coagulation studies. Please contact the laboratory at [phone] for redraw instructions. Glucose Glucometer (BldC) [M ass/Vol]Ordered By: Katie Osborne on 12-30-2022 Glucose [Mass/Vol] 183 mg/dL [facility] Comment on above: Random Glucose Refer ence Range is dependent on time and content of last meal. Glucose of more than 200 mg/dL in a nonstressed, ambulatory subject supports the diagnosis of Diabetes Mellitus. INR in Platelet poor plasma by Coagulation assayOrdered By: Henrry Issa on 12-30-2022 INR Coag (PPP) [Relative time] 1.1 {INR} [facility] Comment on above: INR Therapeutic Rang e [...] PT Coag (PPP) [Time] 13.1 s 9.0-12.9 [facility] Comment on above: A hematocrit value g reater than 55% may lead to inaccurate results in coagulation testing. Patients having hematocrit values >55% require a special collection tube for coagulation studies. Please contact the laboratory at [phone] for redraw instructions. Cholesterol [Mass/volume] in Serum or PlasmaOrdered By: Jarred Cline on 12-29-2022 Cholesterol [Mass/Vol] 96 mg/dL 140-[address] [facility] Comment on above: Chol less than 200 m g/dl low riskChol 201-239 mg/dl borderline riskChol 240 mg/dl and greater high risk Cholesterol in LDL Calc [Mas s/Vol]Ordered By: Jarred Cline on 12-29-2022 Cholesterol in LDL [Mass/Vol] 40 mg/dL 0-100 [facility] Comment on above: LDL ATP III CLASSIFI CATIONLDL less than 100 mg/dL OptimalLDL 100-129 mg/dL Near or above optimalLDL 130-159 mg/dL Borderline highLDL 160-189 mg/dL HighLDL greater than 189 mg/dL Very high Cholesterol in VLDL Calc [Ma ss/Vol]Ordered By: Jarred Cline on 12-29-2022 Cholesterol in VLDL [Mass/Vol] 26 mg/dL [facility] Serum or plasma high density lipoprotein (HDL) cholesterol measurementOrdered By: Jarred Cline on 12-29-2022 Cholesterol in HDL [Mass/Vol] 30 mg/dL 23-92 [facility] Comment on above: HDL CHOL ATP-III CLA SSIFICATION Cardiovascular RiskHDL > or equal to 60 mg/dL LOWHDL < 40 mg/dL HIGH Serum or plasma total choles terol/high density lipoprotein (HDL) cholesterol mass ratOrdered By: Jarred Cline on 12-29-2022 Cholesterol.total/Chol esterol in HDL [Mass ratio] 3.2 {ratio} <5.0 [facility] Triglyceride [Mass/volume] i n Serum or PlasmaOrdered By: Jarred Cline on 12-29-2022 Triglyceride [Mass/Vol] 132 mg/dL 0-149 [facility] Comment on above: TRIG ATP III CLASSIF [...] from glycated hemoglobin (Bld) [Mass/Vol] 212 mg/dL [facility] Hemoglobin A1c percentageOrd ered By: Jarred Cline on 12-28-2022 HbA1c (Bld) [Mass fraction] 9.0 % 4.3-5.6 [facility] Comment on above: Increased risk for d iabetes: 5.7 - 6.4diabetes: >6.4glycemic control for adults with diabetes: <7.0 BNPon 05-19-2022 Natriuretic peptide B (Bld) [Mass/Vol] 74.0 pg/mL Normal <=1,800.0 [facility] Comment on above: Performed By: #### E LEC, BUN, BNP, LIVER, CREA #### [facility] [address] [place] [address] Dr. Brissa Ma BUNon 05-19-2022 Urea nitrogen [Mass/Vol] 41.0 mg/dL Critically high 7.0-18.0 [facility] Comment on above: Performed By: #### E LEC, BUN, BNP, LIVER, CREA #### [facility] [address] [place] [address] Dr. Brissa Ma CBC AUTO DIFFon 05-19-2022 BASO # 0.1 103/ul Normal 0.0-0.1 [facility] Comment on above: Performed By: #### E LEC, BUN, BNP, LIVER, CREA #### [facility] [address] [place] [address] Dr. Brissa Ma Basophils/100 WBC (Bld) 0.8 % Normal 0.2-2.0 [facility] Comment on above: Performed By: #### E LEC, BUN, BNP, LIVER, CREA #### [facility] [address] [place] [address] Dr. Brissa Ma EO # 0.1 103/ul Normal 0.0-0.7 [facility] Comment on above: Performed By: #### E LEC, BUN, BNP, LIVER, CREA #### [facility] [address] [place] [address] Dr. Brissa Ma Eosinophils/100 WBC (Bld) 1.1 % Normal 0.9-7.0 [facility] Comment on above: Performed By: #### E LEC, BUN, BNP, LIVER, CREA #### [facility] [address] [place] [address] Dr. Brissa Ma Erythrocyte distribution width (RBC) [Ratio] 14.1 % Normal 11.0-15.0 [facility] Comment on above: Performed By: #### E LEC, BUN, BNP, LIVER, CREA #### [facility] [address] [place] [address] Dr. Brissa Ma Hematocrit (Bld) [Volume fraction] 47.8 % Normal 42.0-54.0 [facility] Comment on above: Performed By: #### E LEC, BUN, BNP, LIVER, CREA #### [facility] [address] [place] [address] Dr. Brissa Ma Hemoglobin (Bld) [Mass/Vol] 15.3 g/dL Normal 14.0-18.0 [facility] Comment on above: Performed By: #### E LEC, BUN, BNP, LIVER, CREA #### [facility] [address] [place] [address] Dr. Brissa Ma IG # 0.17 10e3/ul Critically high 0.00-0.03 [facility] Comment on above: Performed By: #### E LEC, BUN, BNP, LIVER, CREA #### [facility] [address] [place] [address] Dr. Brissa Ma IG % 1.7 % Critically high 0.0-0.5 [facility] Comment on above: Performed By: #### E LEC, BUN, BNP, LIVER, CREA #### [facility] [address] [place] [address] Dr. Brissa Ma LYMPH # 3.8 103/ul Normal 1.2-3.8 [facility] Comment on above: Performed By: #### E LEC, BUN, BNP, LIVER, CREA #### [facility] [address] [place] [address] Dr. Brissa Ma Lymphocytes/100 WBC (Bld) 38.4 % Normal 20.5-60.0 [facility] Comment on above: Performed By: #### E LEC, BUN, BNP, LIVER, CREA #### [facility] [address] [place] [address] Dr. Brissa Ma MANUAL DIFF REQ NO Normal [facility] Comment on above: Performed By: #### E LEC, BUN, BNP, LIVER, CREA #### [facility] [address] [place] [address] Dr. Brissa Ma MCH (RBC) [Entitic mass] 30.2 pg Normal 25.9-34.0 [facility] Comment on above: Performed By: #### E LEC, BUN, BNP, LIVER, CREA #### [facility] [address] [place] [address] Dr. Brissa Ma MCHC (RBC) [Mass/Vol] 32.0 g/dL Normal 29.9-35.2 [facility] Comment on above: Performed By: #### E LEC, BUN, BNP, LIVER, CREA #### [facility] [address] [place] [address] Dr. Brissa Ma MCV (RBC) [Entitic vol] 94.3 fL Critically high 80.0-94.0 [facility] Comment on above: Performed By: #### E LEC, BUN, BNP, LIVER, CREA #### [facility] [address] [place] [address] Dr. Brissa Ma MONO # 0.7 103/ul Normal 0.3-0.8 [facility] Comment on above: Performed By: #### E LEC, BUN, BNP, LIVER, CREA #### [facility] [address] [place] [address] Dr. Brissa Ma Monocytes/100 WBC (Bld) 7.4 % Normal 1.7-12.0 [facility] Comment on above: Performed By: #### E LEC, BUN, BNP, LIVER, CREA #### [facility] [address] [place] [address] Dr. Brissa Ma NEUT # 5.0 103/ul Normal 1.4-6.5 [facility] Comment on above: Performed By: #### E LEC, BUN, BNP, LIVER, CREA #### [facility] [address] [place] [address] Dr. Brissa Ma Neutrophils/100 WBC (Bld) 50.6 % Normal 43.0-75.0 [facility] Comment on above: Performed By: #### E LEC, BUN, BNP, LIVER, CREA #### [facility] [address] [place] [address] Dr. Brissa Ma Platelet mean volume (Bld) [Entitic vol] 9.0 fL Critically low 9.5-13.5 [facility] Comment on above: Performed By: #### E LEC, BUN, BNP, LIVER, CREA #### [facility] [address] [place] [address] [address] Brissa Ma PLT 205 103/ul Normal 150-450 [facility] Comment on above: Performed By: #### E LEC, BUN, BNP, LIVER, CREA #### [facility] [address] [place] [address] [address] Brissa Ma RBC 5.07 106/ul Normal 4.70-6.10 [facility] Comment on above: Performed By: #### E LEC, BUN, BNP, LIVER, CREA #### [facility] [address] [place] [address] Dr. Brissa Ma WBC 9.9 103/ul Normal 4.0-11.0 [facility] Comment on above: Performed By: #### E LEC, BUN, BNP, LIVER, CREA #### [facility] [address] [place] [address] Dr. Brissa Ma CREATININEon 05-19-2022 Creatinine [Mass/Vol] 1.60 mg/dL Critically high 0.70-1.30 [facility] Comment on above: Performed By: #### E LEC, BUN, BNP, LIVER, CREA #### [facility] [address] [place] [address] Dr. Brissa Ma EGFR-AF [place] 50 mL/min/1.73m2 Critically low >=60 [facility] Comment on above: Performed By: #### E LEC, BUN, BNP, LIVER, CREA #### [facility] [address] [place] [address] Dr. Brissa Ma EGFR-NON AF JAMAICAN 42 mL/min/1.73m2 Critically low >=60 [facility] Comment on above: Performed By: #### E LEC, BUN, BNP, LIVER, CREA #### [facility] [address] [address] [address] Brissa Ma ELECTROLYTESon 05-19-2022 Anion gap [Moles/Vol] 15.5 mmol/L Normal [facility] Comment on above: Performed By: #### E LEC, BUN, BNP, LIVER, CREA #### [facility] [address] [address] [address] Brissa Ma Chloride [Moles/Vol] 102 mmol/L Normal 98-107 [facility] Comment on above: Performed By: #### E LEC, BUN, BNP, LIVER, CREA #### [facility] [address] [address] [address] Brissa Ma CO2 [Moles/Vol] 25.5 mmol/L Normal 21.0-32.0 [facility] Comment on above: Performed By: #### E LEC, BUN, BNP, LIVER, CREA #### [facility] [address] [place] [address] Dr. Brissa Ma Potassium [Moles/Vol] 5.0 mmol/L Normal 3.5-5.1 [facility] Comment on above: Performed By: #### E LEC, BUN, BNP, LIVER, CREA #### [facility] [address] [place] [address] Dr. Brissa Ma Sodium [Moles/Vol] 138 mmol/L Normal 136-145 [facility] Comment on above: Performed By: #### E LEC, BUN, BNP, LIVER, CREA #### [facility] [address] [place] [address] Dr. Brissa Ma GLYCOHEMOGLOBIN A1Con 2022 ADA RECOMMENDATION SEE BELOW Normal [facility] Comment on above: Result Comment: ADA RECOMMENDED LIMIT 4.0 - 6.0 ADA THERAPEUTIC TARGET < 7.0 ACTION SUGGESTED > 7.0 Performed By: #### A 1C #### [facility] [address] [place] [address] Dr. Brissa Ma Glucose [Mass/Vol] 203 mg/dL Normal [facility] Comment on above: Performed By: #### A 1C #### [facility] [address] [place] [address] Dr. Brissa Ma HbA1c (Bld) [Mass fraction] 8.7 % Critically high 4.5-6.2 [facility] Comment on above: Performed By: #### A 1C #### [facility] [address] [place] [address] Dr. Brissa Ma LIVER PROFILEon 05-19-2022 Albumin [Mass/Vol] 3.7 g/dL Normal 3.4-5.0 [facility] Comment on above: Performed By: #### E LEC, BUN, BNP, LIVER, CREA #### [facility] [address] [place] [address] Dr. Brissa Ma Albumin/Globulin [Mass ratio] 1.0 {ratio} Normal [facility] Comment on above: Performed By: #### E LEC, BUN, BNP, LIVER, CREA #### [facility] [address] [place] [address] Dr. Brissa Ma ALP [Catalytic activity/Vol] 80 U/L Normal 46-116 [facility] Comment on above: Performed By: #### E LEC, BUN, BNP, LIVER, CREA #### [facility] [address] [place] [address] Dr. Brissa Ma ALT [Catalytic activity/Vol] 16 U/L Normal 16-63 [facility] Comment on above: Performed By: #### E LEC, BUN, BNP, LIVER, CREA #### [facility] [address] [place] [address] Dr. Brissa Ma AST [Catalytic activity/Vol] 18 U/L Normal 15-37 [facility] Comment on above: Performed By: #### E LEC, BUN, BNP, LIVER, CREA #### [facility] [address] [place] [address] Dr. Brissa Ma BILI, CONJUGATED 0.1 mg/dL Normal 0.0-0.2 [facility] Comment on above: Performed By: #### E LEC, BUN, BNP, LIVER, CREA #### [facility] [address] [place] [address] Dr. Brissa Ma Bilirubin [Mass/Vol] 0.7 mg/dL Normal 0.2-1.0 [facility] Comment on above: Performed By: #### E LEC, BUN, BNP, LIVER, CREA #### [facility] [address] [place] [address] Dr. Brissa Ma Globulin (S) [Mass/Vol] 3.8 g/dL Normal [facility] Comment on above: Performed By: #### E LEC, BUN, BNP, LIVER, CREA #### [facility] [address] [place] [address] Dr. Brissa Ma Protein [Mass/Vol] 7.5 g/dL Normal 6.4-8.2 [facility] Comment on above: Performed By: #### E LEC, BUN, BNP, LIVER, CREA #### [facility] [address] [place] [address] Dr. Brissa Ma BNPon 01-22-2022 Natriuretic peptide B (Bld) [Mass/Vol] 150.0 pg/mL Normal <=1,800.0 [facility] Comment on above: Performed By: #### E LEC, BUN, BNP, LIVER, CREA #### [facility] [address] [place] [address] Dr. Brissa Ma BUNon 01-22-2022 Urea nitrogen [Mass/Vol] 22.0 mg/dL Critically high 7.0-18.0 [facility] Comment on above: Performed By: #### E LEC, BUN, BNP, LIVER, CREA #### [facility] [address] [place] [address] Dr. Brissa Ma CBC AUTO DIFFon 01-22-2022 BASO # 0.0 103/ul Normal 0.0-0.1 [facility] Comment on above: Performed By: #### E LEC, BUN, BNP, LIVER, CREA #### [facility] [address] [place] [address] Dr. Brissa Ma Basophils/100 WBC (Bld) 0.5 % Normal 0.2-2.0 [facility] Comment on above: Performed By: #### E LEC, BUN, BNP, LIVER, CREA #### [facility] [address] [place] [address] Dr. Brissa Ma EO # 0.1 103/ul Normal 0.0-0.7 [facility] Comment on above: Performed By: #### E LEC, BUN, BNP, LIVER, CREA #### [facility] [address] [place] [address] Dr. Brissa Ma Eosinophils/100 WBC (Bld) 1.9 % Normal 0.9-7.0 [facility] Comment on above: Performed By: #### E LEC, BUN, BNP, LIVER, CREA #### [facility] [address] [place] [address] Dr. Brissa Ma Erythrocyte distribution width (RBC) [Ratio] 14.1 % Normal 11.0-15.0 [facility] Comment on above: Performed By: #### E LEC, BUN, BNP, LIVER, CREA #### [facility] [address] [place] [address] Dr. Brissa Ma Hematocrit (Bld) [Volume fraction] 43.1 % Normal 42.0-54.0 [facility] Comment on above: Performed By: #### E LEC, BUN, BNP, LIVER, CREA #### [facility] [address] [place] [address] Dr. Brissa Ma Hemoglobin (Bld) [Mass/Vol] 13.7 g/dL Critically low 14.0-18.0 [facility] Comment on above: Performed By: #### E LEC, BUN, BNP, LIVER, CREA #### [facility] [address] [place] [address] Dr. Brissa Ma IG # 0.05 10e3/ul Critically high 0.00-0.03 [facility] Comment on above: Performed By: #### E LEC, BUN, BNP, LIVER, CREA #### [facility] [address] [place] [address] Dr. Brissa Ma IG % 0.8 % Critically high 0.0-0.5 [facility] Comment on above: Performed By: #### E LEC, BUN, BNP, LIVER, CREA #### [facility] [address] [place] [address] Dr. Brissa Ma LYMPH # 2.7 103/ul Normal 1.2-3.8 [facility] Comment on above: Performed By: #### E LEC, BUN, BNP, LIVER, CREA #### [facility] [address] [place] [address] Dr. Brissa Ma Lymphocytes/100 WBC (Bld) 42.1 % Normal 20.5-60.0 [facility] Comment on above: Performed By: #### E LEC, BUN, BNP, LIVER, CREA #### [facility] [address] [place] [address] Dr. Brissa Ma MANUAL DIFF REQ NO Normal [facility] Comment on above: Performed By: #### E LEC, BUN, BNP, LIVER, CREA #### [facility] [address] [place] [address] Dr. Brissa Ma MCH (RBC) [Entitic mass] 29.8 pg Normal 25.9-34.0 [facility] Comment on above: Performed By: #### E LEC, BUN, BNP, LIVER, CREA #### [facility] [address] [place] [address] Dr. Brissa Ma MCHC (RBC) [Mass/Vol] 31.8 g/dL Normal 29.9-35.2 [facility] Comment on above: Performed By: #### E LEC, BUN, BNP, LIVER, CREA #### [facility] [address] [place] [address] Dr. Brissa Ma MCV (RBC) [Entitic vol] 93.9 fL Normal 80.0-94.0 [facility] Comment on above: Performed By: #### E LEC, BUN, BNP, LIVER, CREA #### [facility] [address] [place] [address] Dr. Brissa Ma MONO # 0.5 103/ul Normal 0.3-0.8 [facility] Comment on above: Performed By: #### E LEC, BUN, BNP, LIVER, CREA #### [facility] [address] [place] [address] Dr. Brissa Ma Monocytes/100 WBC (Bld) 7.8 % Normal 1.7-12.0 [facility] Comment on above: Performed By: #### E LEC, BUN, BNP, LIVER, CREA #### [facility] [address] [place] [address] Dr. Brissa Ma NEUT # 3.0 103/ul Normal 1.4-6.5 [facility] Comment on above: Performed By: #### E LEC, BUN, BNP, LIVER, CREA #### [facility] [address] [place] [address] Dr. Brissa Ma Neutrophils/100 WBC (Bld) 46.9 % Normal 43.0-75.0 [facility] Comment on above: Performed By: #### E LEC, BUN, BNP, LIVER, CREA #### [facility] [address] [place] [address] Dr. Brissa Ma Platelet mean volume (Bld) [Entitic vol] 9.2 fL Critically low 9.5-13.5 [facility] Comment on above: Performed By: #### E LEC, BUN, BNP, LIVER, CREA #### [facility] [address] [place] [address] Dr. Brissa Ma PLT 163 103/ul Normal 150-450 [facility] Comment on above: Performed By: #### E LEC, BUN, BNP, LIVER, CREA #### [facility] [address] [place] [address] Dr. Brissa Ma RBC 4.59 106/ul Critically low 4.70-6.10 [facility] Comment on above: Performed By: #### E LEC, BUN, BNP, LIVER, CREA #### [facility] [address] [place] [address] Dr. Brissa Ma WBC 6.4 103/ul Normal 4.0-11.0 [facility] Comment on above: Performed By: #### E LEC, BUN, BNP, LIVER, CREA #### [facility] [address] [place] [address] Dr. Brissa Ma CREATININEon 01-22-2022 Creatinine [Mass/Vol] 1.47 mg/dL Critically high 0.70-1.30 [facility] Comment on above: Performed By: #### E LEC, BUN, BNP, LIVER, CREA #### [facility] [address] [place] [address] Dr. Brissa Ma EGFR-AF J[place] 56 mL/min/1.73m2 Critically low >=60 [facility] Comment on above: Performed By: #### E LEC, BUN, BNP, LIVER, CREA #### [facility] [address] [place] [address] Dr. Brissa Ma EGFR-NON AF [place]ICAN 46 mL/min/1.73m2 Critically low >=60 [facility] Comment on above: Performed By: #### E LEC, BUN, BNP, LIVER, CREA #### [facility] [address] [place] [address] Dr. Brissa Ma ELECTROLYTESon 01-22-2022 Anion gap [Moles/Vol] 10.1 mmol/L Normal [facility] Comment on above: Performed By: #### E LEC, BUN, BNP, LIVER, CREA #### [facility] [address] [place] [address] Dr. Brissa Ma Chloride [Moles/Vol] 106 mmol/L Normal 98-107 [facility] Comment on above: Performed By: #### E LEC, BUN, BNP, LIVER, CREA #### [facility] [address] [place] [address] Dr. Brissa Ma CO2 [Moles/Vol] 28.4 mmol/L Normal 21.0-32.0 [facility] Comment on above: Performed By: #### E LEC, BUN, BNP, LIVER, CREA #### [facility] [address] [place] [address] Dr. Brissa Ma Potassium [Moles/Vol] 4.5 mmol/L Normal 3.5-5.1 [facility] Comment on above: Performed By: #### E LEC, BUN, BNP, LIVER, CREA #### [facility] [address] [place] [address] Dr. Brissa Ma Sodium [Moles/Vol] 140 mmol/L Normal 136-145 [facility] Comment on above: Performed By: #### E LEC, BUN, BNP, LIVER, CREA #### [facility] [address] [place] [address] Dr. Brissa Ma GLYCOHEMOGLOBIN A1Con 2021 ADA RECOMMENDATION SEE BELOW Normal [facility] Comment on above: Result Comment: ADA RECOMMENDED LIMIT 4.0 - 6.0 ADA THERAPEUTIC TARGET < 7.0 ACTION SUGGESTED > 7.0 Performed By: #### A 1C #### [facility] [address] [place] [address] Dr. Brissa Ma Glucose [Mass/Vol] 223 mg/dL Normal [facility] Comment on above: Performed By: #### A 1C #### [facility] [address] [place] [address] Dr. Brissa Ma HbA1c (Bld) [Mass fraction] 9.4 % Critically high 4.5-6.2 [facility] Comment on above: Performed By: #### A 1C #### [facility] [address] [place] [address] Dr. Brissa Ma LIVER PROFILEon 01-22-2022 Albumin [Mass/Vol] 3.6 g/dL Normal 3.4-5.0 [facility] Comment on above: Performed By: #### E LEC, BUN, BNP, LIVER, CREA #### [facility] [address] [place] [address] Dr. Brissa Ma Albumin/Globulin [Mass ratio] 1.0 {ratio} Normal [facility] Comment on above: Performed By: #### E LEC, BUN, BNP, LIVER, CREA #### [facility] [address] [place] [address] Dr. Brissa Ma ALP [Catalytic activity/Vol] 86 U/L Normal 46-116 [facility] Comment on above: Performed By: #### E LEC, BUN, BNP, LIVER, CREA #### [facility] [address] [place] [address] Dr. Brissa Ma ALT [Catalytic activity/Vol] 18 U/L Normal 16-63 [facility] Comment on above: Performed By: #### E LEC, BUN, BNP, LIVER, CREA #### [facility] [address] [place] [address] Dr. Brissa Ma AST [Catalytic activity/Vol] 20 U/L Normal 15-37 [facility] Comment on above: Performed By: #### E LEC, BUN, BNP, LIVER, CREA #### [facility] [address] [place] [address] Dr. Brissa Ma BILI, CONJUGATED 0.1 mg/dL Normal 0.0-0.2 [facility] Comment on above: Performed By: #### E LEC, BUN, BNP, LIVER, CREA #### [facility] [address] [place] [address] Dr. Brissa Ma Bilirubin [Mass/Vol] 0.4 mg/dL Normal 0.2-1.0 [facility] Comment on above: Performed By: #### E LEC, BUN, BNP, LIVER, CREA #### [facility] [address] [place] [address] Dr. Brissa Ma Globulin (S) [Mass/Vol] 3.7 g/dL Normal [facility] Comment on above: Performed By: #### E LEC, BUN, BNP, LIVER, CREA #### [facility] [address] [place] [address] Dr. Brissa Ma Protein [Mass/Vol] 7.3 g/dL Normal 6.4-8.2 [facility] Comment on above: Performed By: #### E LEC, BUN, BNP, LIVER, CREA #### [facility] [address] [place] [address] Dr. Brissa Ma BUNon 10-08-2021 Urea nitrogen [Mass/Vol] 25.0 mg/dL Critically high 7.0-18.0 [facility] Comment on above: Performed By: #### E LEC, BUN, BNP, LIVER, CREA #### [facility] [address] [place] [address] Dr. Brissa Ma CBC AUTO DIFFon 10-08-2021 BASO # 0.1 103/ul Normal 0.0-0.1 [facility] Comment on above: Performed By: #### C BC #### [facility] [address] [address] [address] Brissa Ma Basophils/100 WBC (Bld) 0.7 % Normal 0.2-2.0 [facility] Comment on above: Performed By: #### C BC #### [facility] [address] [address] [address] Brissa Ma EO # 0.1 103/ul Normal 0.0-0.7 [facility] Comment on above: Performed By: #### C BC #### [facility] [address] [address] [address] Brissa Ma Eosinophils/100 WBC (Bld) 1.8 % Normal 0.9-7.0 [facility] Comment on above: Performed By: #### C BC #### [facility] [address] [place] [address] Dr. Brissa Ma Erythrocyte distribution width (RBC) [Ratio] 14.1 % Normal 11.0-15.0 [facility] Comment on above: Performed By: #### C BC #### [facility] [address] [address] [address] Brissa Ma Hematocrit (Bld) [Volume fraction] 41.9 % Critically low 42.0-54.0 [facility] Comment on above: Performed By: #### C BC #### [facility] [address] [place] [address] Dr. Brissa Ma Hemoglobin (Bld) [Mass/Vol] 13.3 g/dL Critically low 14.0-18.0 [facility] Comment on above: Performed By: #### C BC #### [facility] [address] [address] [address] Brissa Ma IG # 0.06 10e3/ul Critically high 0.00-0.03 [facility] Comment on above: Performed By: #### C BC #### [facility] [address] [address] [address] Brissa Ma IG % 0.9 % Critically high 0.0-0.5 [facility] Comment on above: Performed By: #### C BC #### [facility] [address] [place] [address] Dr. Brissa Ma LYMPH # 2.6 103/ul Normal 1.2-3.8 [facility] Comment on above: Performed By: #### C BC #### [facility] [address] [place] [address] Dr. Brissa Ma Lymphocytes/100 WBC (Bld) 37.8 % Normal 20.5-60.0 [facility] Comment on above: Performed By: #### C BC #### [facility] [address] [place] [address] Dr. Brissa Ma MANUAL DIFF REQ NO Normal [facility] Comment on above: Performed By: #### C BC #### [facility] [address] [place] [address] Dr. Brissa Ma MCH (RBC) [Entitic mass] 30.4 pg Normal 25.9-34.0 [facility] Comment on above: Performed By: #### C BC #### [facility] [address] [place] [address] Dr. Brissa Ma MCHC (RBC) [Mass/Vol] 31.7 g/dL Normal 29.9-35.2 [facility] Comment on above: Performed By: #### C BC #### [facility] [address] [place] [address] Dr. Brissa Ma MCV (RBC) [Entitic vol] 95.7 fL Critically high 80.0-94.0 [facility] Comment on above: Performed By: #### C BC #### [facility] [address] [place] [address] Dr. Brissa Ma MONO # 0.6 103/ul Normal 0.3-0.8 [facility] Comment on above: Performed By: #### C BC #### [facility] [address] [place] [address] Dr. Brissa Ma Monocytes/100 WBC (Bld) 8.4 % Normal 1.7-12.0 [facility] Comment on above: Performed By: #### C BC #### [facility] [address] [place] [address] Dr. Brissa Ma NEUT # 3.4 103/ul Normal 1.4-6.5 [facility] Comment on above: Performed By: #### C BC #### [facility] [address] [place] [address] Dr. Brissa Ma Neutrophils/100 WBC (Bld) 50.4 % Normal 43.0-75.0 [facility] Comment on above: Performed By: #### C BC #### [facility] [address] [place] [address] Dr. Brissa Ma Platelet mean volume (Bld) [Entitic vol] 9.2 fL Critically low 9.5-13.5 [facility] Comment on above: Performed By: #### C BC #### [facility] [address] [place] [address] Dr. Brissa Ma PLT 151 103/ul Normal 150-450 [facility] Comment on above: Performed By: #### C BC #### [facility] [address] [place] [address] Dr. Brissa Ma RBC 4.38 106/ul Critically low 4.70-6.10 [facility] Comment on above: Performed By: #### C BC #### [facility] [address] [place] [address] Dr. Brissa Ma WBC 6.8 103/ul Normal 4.0-11.0 [facility] Comment on above: Performed By: #### C BC #### [facility] [address] [place] [address] Dr. Brissa Ma CREATININEon 10-08-2021 Creatinine [Mass/Vol] 1.30 mg/dL Normal 0.70-1.30 [facility] Comment on above: Performed By: #### E LEC, BUN, BNP, LIVER, CREA #### [facility] [address] [place] [address] Dr. Brissa Ma EGFR-AF J[place]ICAN >60 Normal >=60 [facility] Comment on above: Performed By: #### E LEC, BUN, BNP, LIVER, CREA #### [facility] [address] [place] [address] Dr. Brissa Ma EGFR-NON AF [place] 53 mL/min/1.73m2 Critically low >=60 [facility] Comment on above: Performed By: #### E LEC, BUN, BNP, LIVER, CREA #### [facility] [address] [place] [address] Dr. Brissa Ma ELECTROLYTESon 10-08-2021 Anion gap [Moles/Vol] 12.3 mmol/L Normal [facility] Comment on above: Performed By: #### E LEC, BUN, BNP, LIVER, CREA #### [facility] [address] [place] [address] Dr. Brissa Ma Chloride [Moles/Vol] 106 mmol/L Normal 98-107 [facility] Comment on above: Performed By: #### E LEC, BUN, BNP, LIVER, CREA #### [facility] [address] [place] [address] Dr. Brissa Ma CO2 [Moles/Vol] 24.3 mmol/L Normal 21.0-32.0 [facility] Comment on above: Performed By: #### E LEC, BUN, BNP, LIVER, CREA #### [facility] [address] [place] [address] Dr. Brissa Ma Potassium [Moles/Vol] 4.6 mmol/L Normal 3.5-5.1 [facility] Comment on above: Performed By: #### E LEC, BUN, BNP, LIVER, CREA #### [facility] [address] [place] [address] Dr. Brissa Ma Sodium [Moles/Vol] 138 mmol/L Normal 136-145 [facility] Comment on above: Performed By: #### E LEC, BUN, BNP, LIVER, CREA #### [facility] [address] [place] [address] Dr. Brissa Ma GLYCOHEMOGLOBIN A1Con 2021 ADA RECOMMENDATION SEE BELOW Normal [facility] Comment on above: Result Comment: ADA RECOMMENDED LIMIT 4.0 - 6.0 ADA THERAPEUTIC TARGET < 7.0 ACTION SUGGESTED > 7.0 Performed By: #### A 1C #### [facility] [address] [address] [address] Brissa Ma Glucose [Mass/Vol] 189 mg/dL Normal [facility] Comment on above: Performed By: #### A 1C #### [facility] [address] [address] [address] Brissa Ma HbA1c (Bld) [Mass fraction] 8.2 % Critically high 4.5-6.2 [facility] Comment on above: Performed By: #### A 1C #### [facility] [address] [place] [address] Dr. Brissa Ma LIPID PROFILEon 10-08-2021 CHOL-HDL RATIO NORM SEE BELOW Normal [facility] Comment on above: Result Comment: 3.3 - 4.4 LOW RISK 4.4 - 7.1 AVERAGE RISK 7.1 - 11.0 MODERATE RISK >11.0 HIGH RISK Performed By: #### C LEELEE, ELEC, LIPID, LIVER, BUN #### [facility] [address] [address] [address] Brissa Ma Cholesterol [Mass/Vol] 75 mg/dL Normal <=200 [facility] Comment on above: Performed By: #### C LEELEE, ELEC, LIPID, LIVER, BUN #### [facility] [address] [address] [address] Brissa Ma Cholesterol in HDL [Mass/Vol] 33 mg/dL Critically low 40-60 [facility] Comment on above: Performed By: #### C LEELEE, ELEC, LIPID, LIVER, BUN #### [facility] [address] [address] [address] Brissa Ma Cholesterol in LDL [Mass/Vol] 22.0 mg/dL Normal [facility] Comment on above: Performed By: #### C LEELEE, ELEC, LIPID, LIVER, BUN #### [facility] [address] [place] [address] Dr. Brissa Ma Cholesterol.total/Chol esterol in HDL [Mass ratio] 2.3 {ratio} Normal [facility] Comment on above: Performed By: #### C LEELEE, ELEC, LIPID, LIVER, BUN #### [facility] [address] [address] [address] Brissa Ma HDL NORMAL > or = 60 mg/dl - LO W CARDIOVASCULAR RISK <40 mg/dl - HIGH CARDIOVASCULAR RISK Normal [facility] Comment on above: Performed By: #### C LEELEE, ELEC, LIPID, LIVER, BUN #### [facility] [address] [place] [address] Dr. Brissa Ma LDL CALC NORMAL SEE BELOW Normal [facility] Comment on above: Result Comment: <100 mg/dl OPTIMAL 100 - 129 mg/dl NEAR OR ABOVE OPTIMAL 130 - 159 mg/dl BORDERLINE HIGH 160 - 189 mg/dl HIGH >190 mg/dl VERY HIGH Performed By: #### C LEELEE, ELEC, LIPID, LIVER, BUN #### [facility] [address] [place] [address] Dr. Brissa Ma Triglyceride [Mass/Vol] 100 mg/dL Normal <=150 [facility] Comment on above: Performed By: #### C LEELEE, ELEC, LIPID, LIVER, BUN #### [facility] [address] [place] [address] Dr. Brissa Ma VLDL CALC 20.0 mg/dL Normal [facility] Comment on above: Performed By: #### C LEELEE, ELEC, LIPID, LIVER, BUN #### [facility] [address] [place] [address] Dr. Brissa Ma LIVER PROFILEon 10-08-2021 Albumin [Mass/Vol] 3.4 g/dL Normal 3.4-5.0 [facility] Comment on above: Performed By: #### E LEC, BUN, BNP, LIVER, CREA #### [facility] [address] [place] [address] Dr. Brissa Ma Albumin/Globulin [Mass ratio] 1.0 {ratio} Normal [facility] Comment on above: Performed By: #### E LEC, BUN, BNP, LIVER, CREA #### [facility] [address] [place] [address] Dr. Brsisa Ma ALP [Catalytic activity/Vol] 96 U/L Normal 46-116 [facility] Comment on above: Performed By: #### E LEC, BUN, BNP, LIVER, CREA #### [facility] [address] [place] [address] Dr. Brissa Ma ALT [Catalytic activity/Vol] 24 U/L Normal 16-63 [facility] Comment on above: Performed By: #### E LEC, BUN, BNP, LIVER, CREA #### [facility] [address] [place] [address] Dr. Brissa Ma AST [Catalytic activity/Vol] 14 U/L Critically low 15-37 [facility] Comment on above: Performed By: #### E LEC, BUN, BNP, LIVER, CREA #### [facility] [address] [place] [address] Dr. Brissa Ma BILI, CONJUGATED 0.1 mg/dL Normal 0.0-0.2 [facility] Comment on above: Performed By: #### E LEC, BUN, BNP, LIVER, CREA #### [facility] [address] [place] [address] Dr. Brissa Ma Bilirubin [Mass/Vol] 0.4 mg/dL Normal 0.2-1.0 [facility] Comment on above: Performed By: #### E LEC, BUN, BNP, LIVER, CREA #### [facility] [address] [place] [address] Dr. Brissa Ma Globulin (S) [Mass/Vol] 3.5 g/dL Normal [facility] Comment on above: Performed By: #### E LEC, BUN, BNP, LIVER, CREA #### [facility] [address] [place] [address] Dr. Brissa Ma Protein [Mass/Vol] 6.9 g/dL Normal 6.4-8.2 [facility] Comment on above: Performed By: #### E LEC, BUN, BNP, LIVER, CREA #### [facility] [address] [place] [address] Dr. Brissa Ma Vital Signs Date Time Vital Sign Value Performing Clinician Facility 03-09-2024 15:16-0500 Body height 170.2 cm Stephanie Steward MD Work Phone: [facility] 03-09-2024 15:16-0500 Body mass index (BMI) [Ratio] 28.19 kg/m2 Stephanie Steward MD Work Phone: [facility] 03-09-2024 15:16-0500 Body weight 81.65 kg Stephanie Steward MD Work Phone: [facility] 03-09-2024 15:16-0500 Diastolic blood pressure 70 mm[Hg] Stephanie Steward MD Work Phone: [facility] 03-09-2024 15:16-0500 Heart rate 68 /min Stephanie Steward MD Work Phone: [facility] 03-09-2024 15:16-0500 Systolic blood pressure 120 mm[Hg] Stephanie Steward MD Work Phone: [facility] 01-18-2024 09:01-0500 Body height 170.2 cm Veda Petznick DO Work Phone: [facility] 01-18-2024 09:01-0500 Body mass index (BMI) [Ratio] 28.19 kg/m2 Veda Petznick DO Work Phone: [facility] 01-18-2024 09:01-0500 Body temperature 98.01 [degF] Veda Petznick DO Work Phone: [facility] 01-18-2024 09:01-0500 Body weight 81.65 kg Veda Petznick DO Work Phone: [facility] 01-18-2024 09:01-0500 Diastolic blood pressure 66 mm[Hg] Veda Petznick DO Work Phone: [facility] 01-18-2024 09:01-0500 Heart rate 92 /min Veda Petznick DO Work Phone: [facility] 01-18-2024 09:01-0500 SaO2% (BldA) [Mass fraction] 94 % Veda Petznick DO Work Phone: [facility] 01-18-2024 09:01-0500 Systolic blood pressure 110 mm[Hg] Veda Petznick DO Work Phone: [facility] 12-10-2023 13:27-0400 Body height 170.2 cm Kennedy Camara DPM Work Phone: [facility] 12-10-2023 13:27-0400 Body mass index (BMI) [Ratio] 28.04 kg/m2 Kennedy Camara DPM Work Phone: [facility] 12-10-2023 13:27-0400 Body weight 81.19 kg Kennedy Camara DPM Work Phone: [facility] 12-10-2023 13:27-0400 Respiratory rate 17 /min Kennedy Camara DPM Work Phone: [facility] 12-03-2023 13:58-0400 Body height 170.2 cm Veda Petznick DO Work Phone: [facility] 12-03-2023 13:58-0400 Body mass index (BMI) [Ratio] 28.16 kg/m2 Veda Petznick DO Work Phone: [facility] 12-03-2023 13:58-0400 Body temperature 96.4 [degF] Veda Petznick DO Work Phone: [facility] 12-03-2023 13:58-0400 Body weight 81.56 kg Veda Petznick DO Work Phone: [facility] 12-03-2023 13:58-0400 Diastolic blood pressure 68 mm[Hg] Veda Petznick DO Work Phone: [facility] 12-03-2023 13:58-0400 Heart rate 74 /min Veda Petznick DO Work Phone: [facility] 12-03-2023 13:58-0400 SaO2% (BldA) [Mass fraction] 98 % Veda Petznick DO Work Phone: [facility] 12-03-2023 13:58-0400 Systolic blood pressure 102 mm[Hg] Veda Rome DO Work Phone: [facility] 07-24-2023 13:40-0400 Body height 167.6 cm Henrry Issa MD Work Phone: [facility] 07-24-2023 13:40-0400 Body mass index (BMI) [Ratio] 30.02 kg/m2 Henrry Issa MD Work Phone: [facility] 07-24-2023 13:40-0400 Body weight 84.37 kg Henrry Issa MD Work Phone: [facility] 07-24-2023 13:40-0400 Diastolic blood pressure 74 mm[Hg] Henrry Issa MD Work Phone: [facility] 07-24-2023 13:40-0400 Heart rate 82 /min Henrry Issa MD Work Phone: [facility] 07-24-2023 13:40-0400 Systolic blood pressure 134 mm[Hg] Henrry Issa MD Work Phone: [facility] 04-08-2023 13:24-0500 Body height 170.2 cm Trip BROOKS Work Phone: [facility] 04-08-2023 13:24-0500 Body mass index (BMI) [Ratio] 28.19 kg/m2 Trip BROOKS Work Phone: [facility] 04-08-2023 13:24-0500 Body weight 81.65 kg Trip BROOKS Work Phone: [facility] 01-14-2023 14:28-0500 Body height 170.2 cm Henrry Issa MD Work Phone: [facility] 01-14-2023 14:28-0500 Body mass index (BMI) [Ratio] 30.07 kg/m2 Henrry Issa MD Work Phone: [facility] 01-14-2023 14:28-0500 Body weight 87.09 kg Henrry Issa MD Work Phone: [facility] 01-14-2023 14:28-0500 Diastolic blood pressure 60 mm[Hg] Henrry Issa MD Work Phone: [facility] 01-14-2023 14:28-0500 Heart rate 92 /min Henrry Issa MD Work Phone: [facility] 01-14-2023 14:28-0500 Systolic blood pressure 106 mm[Hg] Henrry Issa MD Work Phone: [facility] 01-02-2023 11:43-0400 Body mass index (BMI) [Ratio] 30.4 kg/m2 JR Hugo Tiwarishaina Work Phone: [facility] 12-31-2022 13:51-0400 Diastolic blood pressure 70 mm[Hg] Hugo Vinodshaina Work Phone: [facility] 12-31-2022 13:51-0400 Heart rate 83 /min Hugo Moser Work Phone: [facility] 12-31-2022 13:51-0400 Respiratory rate 14 /min Hugo Moser Work Phone: [facility] 12-31-2022 13:51-0400 SaO2% (BldA) [Mass fraction] 98 % Hugo Moser Work Phone: [facility] 12-31-2022 13:51-0400 Systolic blood pressure 112 mm[Hg] Hugo Moser Work Phone: [facility] 12-31-2022 12:00-0400 Body temperature 97.8 [degF] JR Arias Ciro Work Phone: [facility] 12-31-2022 06:00-0400 Body weight 86.5 kg JR Arias Ciro Work Phone: [facility] 12-30-2022 15:37-0400 Inhaled oxygen flow rate 6 L/min JR Hugo Moser Work Phone: [facility] 12-30-2022 15:12 Body height 170.18 cm JR Hugo Moser Work Phone: [facility] 12-30-2022 15:120400 Body mass index (BMI) [Ratio] 30.4 kg/m2 JR Hugo Moser Work Phone: [facility] Encounters Encounter Date Encounter Type Care Provider Facility Start: 03-09-2024 End: 03-09-2024 Office outpatient visit 25 minutes Stephanie Steward MD Work Phone: [facility] Comment on above: Pacemaker (Primary D x); AV block, Mobitz II; Mixed hyperlipidemia; Paroxysmal atrial fibrillation (Multi); Mild tricuspid regurgitation; Diabetes mellitus type II, non insulin dependent (Multi); BMI 28.0-28.9,adult; Never smoked tobacco; Overweight Start: 03-09-2024 End: 03-09-2024 ambulatory [facility] Start: 02-17-2024 End: 02-17-2024 Bamboo flowsheet Jr. Gini Cárdenas DO Work Phone: [facility] Start: 02-17-2024 End: 02-17-2024 Bamboo flowsheet Jr. Gini Griffin Stepjere DO Work Phone: [facility] Start: 02-17-2024 End: 02-17-2024 Office outpatient visit 15 minutes Jr. Gini Cárdenas DO Work Phone: [facility] Comment on above: Rotator cuff arthrop [...] minutes Veda Rome DO Work Phone: [facility] 230 Comment on above: Type 2 diabetes enriqueta 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, without long-term current use of insulin (HCC) (CMS/[facility]); Type 2 diabetes mellitus with hyperglycemia, without long-term current use of insulin (CMS/[facility]) Start: 01-18-2024 End: 01-18-2024 ambulatory VEDA ROME Not Available Start: 01-15-2024 End: 01-15-2024 ambulatory Stephanie Steward Facility:[facility] Start: 01-15-2024 Non-patient / Non-visit [facility] Start: 01-14-2024 End: 01-14-2024 Telephone encounter Veda Rome DO Work Phone: [facility] 230 Start: 12-10-2023 End: 12-10-2023 Bamboo flowsheet Kennedy Camara DPM Work Phone: [facility] Start: 12-10-2023 End: 12-10-2023 Bamboo flowsheet Kennedy Camara DPM Work Phone: [facility] Start: 12-10-2023 End: 12-10-2023 Patient encounter procedure Kennedy aCmara DPM Work Phone: [facility] Comment on above: Type 2 diabetes enriqueta itus without complication, 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 insulin use ([facility]) (Primary Dx); Pain due to onychomycosis of toenails of both feet Start: 12-10-2023 End: 12-10-2023 ambulatory KENNEDY CAMARA Not Available Start: 12-03-2023 End: 12-03-2023 Office outpatient new 45 minutes Veda Rome DO Work Phone: [facility] 230 Comment on above: Type 2 diabetes enriqueta 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, without long-term current use of insulin (HCC) (CMS/[facility]) (Primary Dx); Type 2 diabetes mellitus with hyperglycemia, without long-term current use of insulin ([facility]) Start: 12-03-2023 End: 12-03-2023 ambulatory VEDA ROME Not Available Start: 12-02-2023 End: 12-02-2023 Telephone encounter Veda Rome DO Work Phone: [facility] Start: 12-01-2023 Non-patient / Non-visit [facility] Start: 10-16-2023 End: 10-16-2023 Patient encounter procedure Hugo Ciro Work Phone: [facility]Pacemaker Check Start: 10-16-2023 End: 10-16-2023 ambulatory Hugo Moser Work Phone: [facility] Work Phone: Start: 08-17-2023 End: 08-17-2023 ambulatory GINI RAMIRES Not Available Start: 07-24-2023 End: 07-24-2023 Office outpatient visit 25 minutes Henrry Issa MD Work Phone: [facility] Comment on above: Non-ischemic cardiom yopathy (Multi) (Primary Dx); AV block, Mobitz II; Pacemaker; Mixed hyperlipidemia; BMI 30.0-30.9,adult Start: 07-24-2023 End: 07-24-2023 ambulatory HENRRY ISSA [facility]ulatory Start: 07-15-2023 End: 07-15-2023 ambulatory Henrry Issa Facility:[facility] Start: 05-11-2023 End: 05-11-2023 ambulatory GINI RAMIRES Not Available Start: 04-15-2023 End: 04-15-2023 Patient encounter procedure Hugo Ciro Work Phone: [facility]Pacemaker Check Start: 04-15-2023 End: 04-15-2023 ambulatory Hugo Moser Work Phone: [facility] Work Phone: Start: 04-08-2023 End: 04-08-2023 Office outpatient new 45 minutes Trip BROOKS Work Phone: [facility] Comment on above: Acute pain of right shoulder; Rotator cuff arthropathy, right; Arthritis of right acromioclavicular joint Start: 04-08-2023 End: 04-08-2023 ambulatory TRIP BROWN Not Available Start: 01-14-2023 End: 01-14-2023 Office outpatient visit 25 minutes Henrry Issa MD Work Phone: [facility] Comment on above: AV block, Mobitz II; Pacemaker; Obesity (BMI 30.0-34.9) Start: 01-08-2023 End: 01-08-2023 ambulatory JR Hugo Moser Work Phone: [facility] Work Phone: Start: 01-08-2023 End: 01-08-2023 Patient encounter procedure JR Hugo Moser Work Phone: [facility]-XRay [facility] Work Phone: Start: 12-28-2022 End: 12-31-2022 Evaluation and management of inpatient JR Hugo Moser Work Phone: [facility] Work Phone: Start: 05-19-2022 End: 05-20-[address] HUGO MOSER Facility:[facility] Start: 01-22-2022 End: 01-23-[address] HUGO MOSER Facility:[facility] Start: 10-09-2021 Encounter for genera l adult medical examination without abnormal findings DR HUGO MOSER [facility] Start: 10-08-2021 End: 10-09-[address] HUGO MOSER Facility:[facility] Start: 10-08-2021 End: 10-09-2021 Encounter for general adult medical examination without abnormal findings DR HUGO MOSER Facility:[facility] Procedures Date Procedure Procedure Detail Performing Clinician Start: 03-09-2024 Ecg routine ecg w/le ast 12 lds w/i&r Stephanie Steward MD Work Phone: Start: 01-18-2024 Hemoglobin glycosylated a1c Veda Rome DO Work Phone: Start: 04-15-2023 Plain chest X-ray JR yeimy Moser Work Phone: Start: 04-08-2023 End: 04-08-2023 Arthrocentesis aspir&/inj major jt/bursa w/o Trip Brown PA Work Phone: Start: 01-08-2023 Plain chest X-ray JR yeimy Valone Work Phone: Start: 12-31-2022 Plain chest X-ray JR yeimy Valone Work Phone: Start: 12-30-2022 Plain chest X-ray JR yeimy Valshaina Work Phone: Start: 12-30-2022 Implantation of card iac pacemaker JR Hugo Moser Work Phone: Plan of Treatment Date Care Activity Detail Author Start: 11-09-2024 End: 11-09-2024 Patient encounter procedure 11/09/2024 11:00 AM EDT Office Visit [address] [place] [address] Stephanie Steward MD [address] [facility] [address] [place] [address] [facility] Start: 04-18-2024 End: 04-18-2024 Patient encounter procedure 04/18/2024 1:00 PM EST Office Visit [facility] [address] [place] [address] Veda Rome DO [address] [place] [address] [facility] Start: 03-09-2024 End: 03-09-2024 Patient encounter procedure 03/09/2024 10:50 AM EST Office Visit [facility] [address] [facility] [address] [place] [address] Stephanie Steward MD [address] [place] [address] [facility] Start: 02-17-2024 End: 02-17-2024 Patient encounter procedure [facility] Comment on above: Arrived Start: 01-15-2024 End: 01-15-2024 Patient encounter procedure 01/15/2024 2:00 PM EST Office Visit [facility] [address] [place] [phone] Veda Rome, DO [address] [place] [address] 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 230 Start: 11-01-2023 COVID-19 Vaccine ( season) COVID-19 Vaccine ( season) [facility] Start: 11-01-2023 Influenza vaccination [facility] Start: 07-24-2023 End: 07-24-2023 Patient encounter procedure 07/24/2023 1:40 PM EDT Office Visit [facility] [address] [place] [phone] Henrry Issa MD [address] [facility] [facility] [place] [address] [facility] Start: 05-11-2023 End: 05-11-2023 Patient encounter procedure 05/11/2023 10:45 AM EDT Office Visit [facility] [address] [place] [address] Jr. Gini Cárdenas, DO [address] [place] [address] [facility] Start: 12-31-2022 [facility] Start: 12-30-2022 [facility] Start: 12-28-2022 Insertion of Pacemak er Lead into Right Atrium, Percutaneous Approach Insertion of Pacemaker Lead into Right Atrium, Percutaneous Approach [facility] Start: 12-28-2022 Insertion of Pacemak er Lead into Right Ventricle, Percutaneous Approach Insertion of Pacemaker Lead into Right Ventricle, Percutaneous Approach [facility] Start: 12-28-2022 Insertion of Pacemak er, Dual Chamber into Chest Subcutaneous Tissue and Fascia, Open Approach Insertion of Pacemaker, Dual Chamber into Chest Subcutaneous Tissue and Fascia, Open Approach [facility] Start: 12-28-2022 Hospital admission [facility] Start: 12-28-2022 Referral to supervisor refractory products [facility] Start: 10-31-2022 COVID-19 Vaccine (2022- season) COVID-19 Vaccine ( season) [facility] Start: 10-31-2022 Influenza vaccination Influenza Vacc ine (#1) [facility] Start: 02-05-2022 COVID-19 Vaccine (4 - Moderna series) COVID-19 Vaccine (4 - Moderna series) [facility] Start: 05-18-2019 Pneumococcal vaccination Pneum ococcal Vaccine (2 of 2 - PCV) [facility] Start: 05-18-2019 Pneumococcal Vaccine : 65+ Years (2 - PCV) Pneumococcal Vaccine: 65+ Years (2 - PCV) [facility] Start: 05-18-2019 Pneumococcal Vaccine : 65+ Years (2 of 2 - PCV) Pneumococcal Vaccine: 65+ Years (2 of 2 - PCV) [facility] Start: 08-18-2014 RSV High Risk: (Elde rly (60+) or Population) (1 - 1-dose 75+ series) RSV High Risk: (Elderly (60+) or Population) (1 - 1-dose 75+ series) [facility] Start: 1999 RSV patient s and/or patients aged 60+ years (1 - 1-dose 60+ series) RSV patients and/or patients aged 60+ years (1 - 1-dose 60+ series) [facility] Start: 08-18-1989 Zoster Vaccines (1 of 2) Zoste r Vaccines (1 of 2) [facility] Start: 08-18-1961 DTaP/Tdap/Td Vaccine s (1 - Tdap) DTaP/Tdap/Td Vaccines (1 - Tdap) [facility] Start: 08-18-1958 Urine screening for protein Diabetes: Urine Protein Screening [facility] Start: 08-18-1949 Diabetic foot examination Diabetes: Foot Exam [facility] Start: 08-18-1949 Glaucoma screening Diabetes: R etinopathy Screening [facility] Start: 1940 Hemoglobin A1c measurement Diabetes: Hemoglobin A1C [facility] Start: 1939 Lipid panel Lipid Panel [facility] Start: 1939 Medicare Annual Well ness Visit Medicare Annual Wellness Visit (AWV) [facility] Start: 1939 Urine screening for protein Diabetes: Urine Protein Screening [facility] Patient Education Clindamycin (Systemic) [facility] Work Phone: Patient referral [facility] Work Phone: XR Shoulder - right 2 Views XR shoulder 2+ views right Imaging Routine Acute pain of right shoulder 04/08/2023 1:21 PM EST [facility] Work Phone: Immunizations Immunization Date Immunization Notes Care Provider Francis covington 12-11-2021 Moderna COVID-19 vaccine, bivalent, blue cap/goff label *Check age/dose* Henrry Issa MD Work Phone: [facility] 01-31-2021 influenza, injectabl e, quadrivalent, preservative free Henrry Issa MD Work Phone: [facility] Work Phone: 01-31-2021 influenza virus vacc ine, unspecified formulation Henrry Issa MD Work Phone: [facility] Work Phone: 05-17-2018 influenza, injectabl e, quadrivalent, preservative free Henrry Issa MD Work Phone: [facility] Work Phone: 05-17-2018 pneumococcal polysaccharide vaccine, 23 valent Henrry Issa MD Work Phone: [facility] Work Phone: Payers Date Payer Category Payer Private Health Insurance A[employer] [id number] 2022 Self-pay 2022 Medicare supplementa l policy (as second payer) [employer] [id number] 2022 Unknown [id number] 2004 Medicare [id number] 1959 Medicare [id number] 1959 Unknown [id number] 1939 Unknown [id number] 2.16.840.1.413889.3.579. 2.593 1939 Unknown [id number] 2.16.840.1.363493.3.579. 2.593 1939 Unknown [id number] 2.16.840.1.731411.3.579. 2.593 1939 Unknown [id number] 2.16.840.1.316853.3.579. 2.1259 1939 Unknown [id number] 2.16.840.1.214752.3.579. 2.1259 1939 Unknown [id number] 2.16.840.1.519671.3.579. 2.1259 1939 Unknown [id number] 2.16.840.1.359597.3.579. 2.1259 1939 Unknown [id number] 2.16.840.1.511394.3.579. 2.1259 1939 Unknown [id number] 2.16840.1.363097.3.579. 2.1259 1939 Unknown [id number] 2.16.840.1.807007.3.579. 2.1259 1939 Unknown [id number] 2.16.840.1.515988.3.579. 2.1259 1939 Unknown [id number] 2.16.840.1.786970.3.579. 2.1244 1939 Unknown [id number] 2.16.840.1.679694.3.579. 2.1244 Unknown [id number] 2.16.840.1.605398.3.579. 2.531 Unknown [id number] 2.16.840.1.110767.3.579. 2.531 Unknown [id number] 2.16.840.1.527344.3.579. 2.531 Unknown [id number] 2.16.840.1.083278.3.579. 2.531 Social History Date Type Detail Facility Start: 12-30-2022 End: 01-14-2023 Tobacco smoking status NHIS Never smoked tobacco (finding) [facility] Start: 1940 Sex Assigned At Male F [facility] Start: 01-14-2023 End: 04-08-2023 Tobacco use and exposure Smokeless tobacco non-user [facility] Work Phone: Start: 01-14-2023 End: 03-09-2024 Alcohol intake Lifetime non-drinker (finding) [facility] Work Phone: Start: 01-14-2023 End: 03-09-2024 History of Social function [facility] Work Phone: Start: 01-14-2023 End: 03-09-2024 Tobacco use panel [facility] Work Phone: Start: 1940 [facility] Start: 01-04-2023 End: 03-09-2024 Exposure to SARS-CoV-2 (event) Not sure [facility] Start: 04-08-2023 End: 12-10-2023 Alcohol intake Current drinker of alcohol (finding) [facility] Start: 01-19-2024 Sex Male (finding) [facility] Start: 01-18-2024 End: 02-17-2024 Alcoholic beverage intake Ex-drinker (finding) [facility] How often to you hav e a drink containing alcohol? Never [facility] How many standard drinks containing alcohol do you have on a typical day? Patient does not drink [facility] Medical Equipment Procedure Code Equipment Code Equipment Origin al Text Equipment Identifier Dates Insertion, pacemaker Endocardial pacing lead [id number] FDA Start: 12-30-2022 Insertion, pacemaker Endocardial pacing lead [id number] FDA Start: 12-30-2022 Insertion, pacemaker Dual-chamber implantable pacemaker, rate-responsive ()[id number] FDA Start: 12-30-2022 Goals Date Patient Goal Desired Activity /State Functional Status Date Assessment Result Facility 12-31-2022 Functional status Patient at [facility] Work Phone: Mental Status Date Assessment Result Facility 12-31-2022 Cognitive function Cognitive Sta tus Patient at Baseline [facility] Work Phone: Clinical Notes 12-28-2022 to 03-09-2024 Stephanie Steward MD - 03/09/2024 3:20 PM ESTPatient InstructionsJr. Gini Cárdenas, DO - 02/17/2024 10:00 AM Narinder Rome, DO - 01/18/2024 12:37 PM ESTPatient Instructions Note Date & Type Note Facility 03-09-2024 History of Present illness Narrative Karen Jiménez is a 83 y.o. male Chief Complaint Follow-up HPI 83-year-old white male who has previously followed with Dr. Issa. He has history of complete heart block status post pacemaker insertion 2022. He has diabetes type 2 managed by his PCP Dr. Waddell and also has hyperlipidemia on statin therapy. His echocardiogram in 2022 was normal. The patient has extremely small load of atrial fibrillation and at one time he was on Xarelto which has not been used for over a year now. His pacemaker analysis which I reviewed demonstrated no indication of recurrent atrial fibrillation. His EKG in the office today revealed sinus rhythm with ventricular pacing. The patient has no dyspnea orthopnea PND or lower extremity edema. His labs have been followed by his PCP. Assessment/recommendations: 3-[id number]-[id number] AV block status post permanent pacemaker 2022 with no complications, pacemaker analysis from recent assessment revealed no arrhythmias with normal device function. Will continue to follow in the pacemaker clinic. 2-very small load of atrial fibrillation picked up on his pacemaker analysis over a year ago with no recurrences. He does not require antiarrhythmic or anticoagulation 3-type 2 diabetes managed by PCP under control 4-hyperlipidemia on high intensity statin and ezetimibe managed by PCP appears to be under control 5-overweight, encouraged patient for active lifestyle to bring his weight down further. Review of Systems Neurological: Positive for dizziness. All other systems reviewed and are negative. Vitals: 03/09/24 1516 BP: 120/70 BP Location: Left arm Patient Position: Sitting Pulse: 68 Weight: 81.6 kg (180 lb) Height: 1.702 m (5' 7 ) Objective Physical Exam Constitutional: Appearance: Normal [...] II Follow Up In Cardiology 2. Pacemaker 3. Mixed hyperlipidemia 4. Non-ischemic cardiomyopathy (Multi) 5. Diabetes mellitus type II, non insulin dependent (Multi) 6. BMI 28.0-28.9,adult 7. Never smoked tobacco Scribe Attestation By signing my name below, I, Ashtyn Desir RN , Scribe attest that this documentation has been prepared under the direction and in the presence of Stephanie Steward MD. Provider Attestation - Scribe documentation All medical record entries made by the Scribe were at my direction and personally dictated by me. I have reviewed the chart and agree that the record accurately reflects my personal performance of the history, physical exam, discussion and plan. documented in this encounter [facility] Work Phone: 03-09-2024 Instructions Ashtyn Rendon RN - 03/09/2024 3:20 PM EST Please bring all medicines, vitamins, and herbal supplements with you when you come to the office. Prescriptions will not be filled unless you are compliant with your follow up appointments or have a follow up appointment scheduled as per instruction of your physician. Refills should be requested at the time of your visit. BMI was above normal measurement. Current weight: 81.6 kg (180 lb) Weight change since last visit (-) denotes wt loss -6 lbs Weight loss needed to achieve BMI 25: 20.7 Lbs Weight loss needed to achieve BMI 30: -11.1 Lbs Provided instructions on dietary changes Provided instructions on exercise. Pacemaker/Defibrillator follow up per routine documented in this encounter [facility] Work Phone: 02-17-2024 History of Present illness Narrative Images [...] requiring urgent evaluation. documented in this encounter [facility] 01-18-2024 History of Present illness Narrative Associated Problem(s): Type 2 diabetes mellitus with hyperglycemia, without long-term current use of insulin ([facility]) During the appointment today [...] without long-term current use of insulin (HCC) (CMS/[facility]) Social History Tobacco Use [...] as long-term Patient-reported The ASCVD Risk score ([place] DK, et al., 2019) failed to calculate for [...] hyperglycemia, without long-term current use of insulin ([facility]) During the appointment today [...] without long-term current use of insulin (HCC) ([facility]) Relevant Medications insulin glargine [...] the patient today. documented in this encounter [facility] 01-14-2024 Telephone encounter Note noted [facility] 01-14-2024 Miscellaneous Notes noted P/c to remind pt of appointment. Pt had to reschedule because his has testing all day tomorrow. Rescheduled for Thursday at 9:15. He voiced understanding documented in this encounter [facility] 01-14-2024 Telephone encounter Note P/c to remind pt of appointment. Pt had to reschedule because his has testing all day tomorrow. Rescheduled for Thursday at 9:15. He voiced understanding [facility] 12-10-2023 History of Present illness Narrative [...] History: Past Medical History: Diagnosis Date Diabetes (CMS/HCC) Hx of deep venous thrombosis Hyperlipemia ([facility]) Hypertension ([facility]) Medications: Current Outpatient Medications: [...] Negative palpable pedal pulses bilaterally NEURO: 5.07 [place] Claudia monofilament test intact to digits and forefoot bilaterally 125Hz tuning fork diminished to 1st MPJ bilaterally ORTHO: Positive pain on palpation to nails 1 through 10 ASSESSMENT 1. Type 2 diabetes mellitus without complication, unspecified whether care home insulin use ([facility]) 2. Pain due to [...] Kennedy Camara DPM documented in this encounter [facility] 12-03-2023 History of Present illness Narrative Associated Problem(s): Type 2 diabetes mellitus with hyperglycemia, without long-term current use of insulin ([facility]) During the appointment today [...] occasion (cinnamon toast crunch- low sugar) Lunch: [place] (ham), fruit (peaches, pears, melon) Dinner: Varies- [...] without long-term current use of insulin (HCC) (CMS/[facility]) Social History Tobacco Use [...] hyperglycemia, without long-term current use of insulin ([facility]) During the appointment today [...] disease, without long-term current use of insulin ([facility]) ([facility]) - Primary Relevant Medications empagliflozin (Jardiance) 25 [...] the patient today. documented in this encounter [facility] 12-02-2023 Telephone encounter Note Pt's answered the phone. Reminded her of her 's appointment tomorrow with Dr. Mccollum. voiced understanding [facility] 12-02-2023 Miscellaneous Notes Pt's answered the phone. Reminded her of her 's appointment tomorrow with Dr. Mccollum. voiced understanding documented in this encounter [facility] 07-24-2023 History of Present illness Narrative Subjective Emmanuel Jiménez is a 82 y.o. male Chief [...] Scribe Attestation By signing my name below, I, Kaylynn S. LIBRARY AIDE , Scribe attest that this documentation has [...] discussion and plan. documented in this encounter [facility] Work Phone: 07-24-2023 Instructions Sal [...] of your visit. documented in this encounter [facility] Work Phone: 04-08-2023 History of [...] with 2ml of 2 % lidocaine (Code 46899 RT) Procedure, treatment alternatives, risks and benefits [...] Cárdenas in 4 weeks consider need for naselle procedure possible tuberule plasty, versus reverse shoulder [...] evaluation. TODD Driver documented in this encounter [facility] 01-14-2023 History of Present illness Narrative Subjective Emmanuel Jiménez is a 82 y.o. male Chief [...] Obesity (BMI 30.0-34.9) documented in this encounter [facility] Work Phone: 01-14-2023 Instructions Lupe [...] up per routine documented in this encounter [facility] Work Phone: 12-31-2022 Progress note Note Date/Time December 31, 2022 10:25am [facility] [address] [place] [address] Cardiology Progress Note Signed Patient: Emmanuel Jiménez MR#: [id number] : 1940 Acct:[id number] Age/Sex: 82 / M Adm Date: 3 Loc: Room: [address] [place] [address] Type: ADM IN Attending Dr: Katie Osborne [...] % (Auto) 61.2 Lymph % (Auto) 27.7 [place] % (Auto) 8.9 Eos % (Auto) 1.6 Baso % (Auto) 0.6 Nucleat RBC Rel Count 0.0 Neut # (Auto) 4.1 Lymph # (Auto) 1.9 [place] # (Auto) 0.6 Eos # (Auto) 0.1 Baso # (Auto) 0.0 PHA Creatinine Clear Sodium Potassium Chloride Carbon Dioxide Anion Gap BUN Creatinine Est GFR (CKD-EPI) Glucose POC Glucose 206 183 Calcium Magnesium 12/31/22 06:36 Corrected WBC Uncorrected WBC Count RBC Hgb Hct MCV MCH MCHC RDW Plt Count MPV Neut % (Auto) Lymph % (Auto) [place] % (Auto) Eos % (Auto) Baso % (Auto) Nucleat RBC Rel Count Neut # (Auto) Lymph # (Auto) [place] # (Auto) Eos # (Auto) Baso # [...] clinic as scheduled. Follow-up with his primary supervisor refractory products Dr. Hugo Moser henceforth Documented By: Henrry Issa MD [id number] Signed By: <Electronically signed by MD Henrry Issa> 12/31/22 1033 [facility] Work Phone: 1(568) 421-689610-31-2023 Progress note Author Katie Osborne [facility] December 30, 2022 2:12pm Note Date/Time December 30, 2022 2 :12pm [facility] [address] [place] [address] Hospitalist Progress Note Signed Patient: Emmanuel Jiménez MR#: [id number] : 1940 Acct:[id number] Age/Sex: 82 / M Adm Date: 3 Loc: 3T Room: [address] [place] [address] Type: ADM IN Attending Dr: Katie Osborne MD Copies to: ~ Date of Service: 12/30/2022 Subjective Subjective Narrative: Patient was seen and evaluated at bedside this morning. groundwater monitoring technician was reviewed, patient continued to have heart [...] Plan: ? Patient's baseline is unknown, at [place] his creatinine is 1.6, today here it is 1.4 ? Patient did receive atropine at [place], his heart rate has been improved while [...] <Electronically signed by Katie Osborne MD> 12/30/[address] [place] [address] Ctr Work Phone: 1(191) 864-113510-30-2023 Progress note Author Henrry Issa [facility] December 29, 2022 2:16pm Note Date/Time December 29, 2022 2 :16pm [facility] [address] [place], [place] [id number] Cardiology Progress Note Signed Patient: Emmanuel Jiménez MR#: [id number] : 1940 Acct:[id number] Age/Sex: 82 / M Adm Date: 3 Loc: Room: [address] [place] [address] Type: ADM IN Attending Dr: Katie Osborne [...] block. Intermittently he is conducting in a [id number]-pnlubecilx. No observed manifestations of complete heart block. [...] % (Auto) 48.1 Lymph % (Auto) 41.3 [place] % (Auto) 8.4 Eos % (Auto) 1.4 Baso % (Auto) 0.8 Nucleat RBC Rel Count 0.1 Neut # (Auto) 3.6 Lymph # (Auto) 3.1 [place] # (Auto) 0.6 Eos # (Auto) 0.1 [...] MPV Neut % (Auto) Lymph % (Auto) [place] % (Auto) Eos % (Auto) Baso % (Auto) Nucleat RBC Rel Count Neut # (Auto) Lymph # (Auto) [place] # (Auto) Eos # (Auto) Baso # [...] performed Thursday. Documented By: Henrry Issa MD 141 Signed By: <Electronically signed by MD Henrry Issa> 12/29/22 1416 [facility] Work Phone: 1(997) 368-215110-30-2023 Progress note Author Katie Osborne [facility] December 29, 2022 1:57pm Note Date/Time December 29, 2022 1 :57pm [facility] [address] [place] [address] Hospitalist Progress Note Signed Patient: Emmanuel Jiménez MR#: [id number] : 1940 Acct:[id number] Age/Sex: 82 / M Adm Date: 3 Loc: Room: [address] [place] [address] Type: ADM IN Attending Dr: Katie Osborne MD Copies to: ~ Date of Service: 12/29/2022 Subjective Subjective Narrative: Patient was seen and evaluated at bedside this morning. groundwater monitoring technician was reviewed, patient continued to have heart [...] Plan: ? Patient's baseline is unknown, at [place] his creatinine is 1.6, today here it is 1.4 ? Patient did receive atropine at [place], his heart rate has been improved while [...] <Electronically signed by Katie Osborne MD> 12/29/[address] [place] [address] Ctr Work Phone: 1(111) 159-581210-29-2023 Consult note Author Haylee Benedict [facility] December 28, 2022 7:25pm Note Date/Time December 28, 2022 7 :22pm [facility] [address] [place] [address] Cardiology Consult Note Signed Patient: Emmanuel Jiménez MR#: [id number] : 1940 Acct:[id number] Age/Sex: 82 / M Adm Date: 3 Loc: Room: [address] [place] [address] Type: ADM IN Attending Dr: Jarred Cline DO Copies to: DO Haylee Childers Jr, MD Shawn J Warner, ~ Cardiology HPI History of Present Illness Consult [...] <Electronically signed by Haylee Benedict MD> 12/28/221924 [facility] Work Phone: 1(336) 854-317610-29-2023 History and physical note Author Jarred Cline [facility] December 28, 2022 1:36pm Note Date/Time December 28, 2022 1 :21pm [facility] [address] [place] [address] Hospitalist H&P Signed Patient: Emmanuel Jiménez MR#: [id number] : 1940 Acct:[id number] Age/Sex: 82 / M Adm Date: 3 Loc: Room: [address] [place] [address] Type: ADM IN Attending Dr: Jarred Cline DO Copies to: DO Jarred Childers Jr, DO~ HPI DATE OF EXAMINATION: 12/28/22 CHIEF COMPLAINT: low heart rate HISTORY OF PRESENT ILLNESS: Mr Jiménez is an 82-year-old male with past medical history of diabetes and hypertension who presents hospital today with chief complaint of low heart rate. He was transferred here from [facility], he has been feeling exertional dyspnea [...] to the emergency room. He went to [place] ER was then transferred back here due to there being no cardiology services at [place]. Patient denies any cough with his shortness [...] negative unless noted below or [facility] Social History Smoking Status: Never smoker Meds [...] Plan: ? Patient's baseline is unknown, at [place] his creatinine is 1.6, today here it is 1.4 ? Likely secondary to decreased perfusion from bradycardia ? Patient did receive atropine at [place], his heart rate has been improved while [...] signed by Jarred Cline DO> 12/28/22 1336 [facility] Work Phone: Discharge summary Author Katie Osborne [facility] December 31, 2022 12:42pm Note Date/Time December 31, 2022 1 2:43pm [facility] [address] [place] [address] Discharge Summary Signed Patient: Emmanuel Jiménez MR#: [id number] : 1940 Acct:[id number] Age/Sex: 82 / M Adm Date: 3 Loc: Room: [address] [place] [address]: Katie Osborne MD Copies to: [...] heart rate. He was transferred here from [facility], he has been feeling exertional dyspnea [...] % (Auto) 61.2, Lymph % (Auto) 27.7, [place] % (Auto) 8.9, Eos % (Auto) 1.6, Baso % (Auto) 0.6, Nucleat RBC Rel Count 0.0, Neut # (Auto) 4.1, Lymph # (Auto) 1.9, [place] # (Auto) 0.6, Eos # (Auto) 0.1, [...] with nurse for incision check in the [facility] on - we will call you. 2. Chest x-ray to be done the same day as your device check at [facility] 04/15/2023. 3. Pacemaker/ICD clinic appointment at [facility] on 04/15/2023 at 11:00am . 4. Office [...] signed by Katie Osborne MD> 12/31/22 1242 [facility] Work Phone: Evaluation note* Diagnosis Onset Date Resolution Status ZAC (acute kidney injury) ac comanche Diabetes mellitus acute HTN (hypertension) acute Mobitz type 2 second degree AV block acute [facility] Work Phone: Evaluation note* Diagnosis AV block, Mobitz II Mobitz (type) II atrioventricular block Pacemaker Cardiac pacemaker in situ Obesity (BMI 30.0-34.9) documented in this encounter [facility] Work Phone: Evaluation note* Diagnosis Acute pain of right shoulder Rotator cuff arthropathy, right Arthritis of right acromioclavicular joint documented in this encounter [facility] HealthcareEvaluation noteNo assessment information availableRegency [facility] Company Work Phone: Evaluation note* Diagnosis Non-ischemic cardiomyopathy (Multi)- Primary Other primary cardiomyopathies AV block, Mobitz II Mobitz (type) II atrioventricular block Pacemaker Cardiac pacemaker in situ Mixed hyperlipidemia BMI 30.0-30.9,adult documented in this encounter [facility] Work Phone: Evaluation note* Diagnosis Type 2 diabetes mell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, without long-term current use of insulin (HCC) (CMS/HCC)- Primary Type 2 diabetes mellitus with hyperglycemia, without long-term current use of insulin (CMS/HCC) documented in this encounter [facility] HealthcareEvaluation note* Diagnosis Type 2 diabetes mellitus without complication, unspecified whether care home insulin use (CMS/HCC)- Primary Pain due to onychomycosis of toenails of both feet documented in this encounter [facility] HealthcareEvaluation note* Diagnosis Type 2 diabetes mell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, without long-term current use of insulin (HCC) (CMS/HCC)- Primary Type 2 diabetes mellitus with hyperglycemia, without long-term current use of insulin (CMS/HCC) Type 2 diabetes mell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, without long-term current use of insulin (HCC) (CMS/HCC) Type 2 diabetes mellitus with hyperglycemia, without long-term current use of insulin (CMS/HCC) documented in this encounter [facility] HealthcareEvaluation note* Diagnosis Type 2 diabetes mell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, without long-term current use of insulin (HCC) (CMS/HCC)- Primary Type 2 diabetes mellitus with hyperglycemia, without long-term current use of insulin (CMS/HCC) Type 2 diabetes mell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, without long-term current use of insulin (HCC) (CMS/HCC) Type 2 diabetes mellitus with hyperglycemia, without long-term current use of insulin (CMS/HCC) Rotator cuff arthropathy, right- Primary Shoulder arthritis Unspecified arthropathy, shoulder region documented in this encounter [facility] HealthcareEvaluation note* Diagnosis Pacemaker- Primary Cardiac pacemaker in situ AV block, Mobitz II Mobitz (type) II atrioventricular block Mixed hyperlipidemia Paroxysmal atrial fibrillation (Multi) Atrial fibrillation Mild tricuspid regurgitation Diabetes mellitus type II, non insulin dependent (Multi) Type II or unspecified type diabetes mellitus without mention of complication, not stated as uncontrolled BMI 28.0-28.9,adult Never smoked tobacco Overweight documented in this encounter [facility] Work Phone: Hospital Discharge instructions Additional Instructions [...] with nurse for incision check in the [facility] on - 01/08/2023 at 1:30pm. 2. Chest x-ray to be done the same day as your device check at [facility] 04/15/2023. 3. Pacemaker/ICD clinic appointment at [facility] on 04/15/2023 at 11:00am . 4. Office visit with Dr. Moser. [][facility] Work Phone: Reason for referral (narrative)* Consultation (Routine) - Authorized Specialty Diagnoses / Procedures Referred By Milan stallings Referred To Contact Cardiology Diagnoses AV block, Mobitz II Pacemaker Procedures Follow Up In Cardiology Henrry Issa MD [address] [place] [address] 2, [address] [address] Henrry Issa MD [address] [place], [place] [address]er [facility] 2, [address] [address] Referral ID Status Reason Start Date Expiration Date V isits Requested Visits Authorized [id number] Authorized 01/14/2023 01/14/2024 1 1 [facility] Work Phone: Reason for referral (narrative)* Consultation (Routine) - Authorized Specialty Diagnoses / Procedures Referred By Milan stallings Referred To Contact Cardiology Diagnoses AV block, Mobitz II Procedures Follow Up In Cardiology Henrry Issa MD [address] [place] [address] 2, [address] [place] [address] Stephanie Steward MD [address] [place] [address] 2, [address] [place] [address] Referral ID Status Reason Start Date Expiration Date V isits Requested Visits Authorized [id number] Authorized 07/24/2023 07/23/2024 1 1 [facility] Work Phone: Summary Purpose Family [...] Inj/Asp: R acromioclavicular Trip Brown PA [address] [facility] [address] [place] [address] Referral ID Status Reason Start Date Expiration Date V isits Requested Visits Authorized [id number] Pending Review 04/08/2023 10/05/2023 1 1 Specialty Diagnoses / Procedures Referred By Contac t Referred To Contact Orthopaedic Surgery Diagnoses Rotator cuff arthropathy, right Procedures L Inj/Asp: R subacromial bursa Trip Brown PA [address] [facility] [address] [place] [address] Referral ID Status Reason Start Date Expiration Date V isits Requested Visits Authorized [id number] Authorized 04/08/2023 10/05/2023 1 1 Additional Source Comments (unrecognized sect ion and content) No Status Records FoundNo Status Records FoundNo Status Records FoundNo Status Records Found INFORMATION SOURCE (unrecogn ized section and content) DATE CREATED AUTHOR 05/25/2022 [facility] DATE CREATED AUTHOR AUTHOR'S ORGANIZ ATION 01/23/2024 [facility] DATE CREATED AUTHOR AUTHOR'S ORGANIZ ATION 02/20/2024 [facility] EPIC DATE CREATED AUTHOR AUTHOR'S ORGANIZ ATION 03/15/2024 [facility] Resident Care Technician Teams (unrecognized sec tion and content) Team [...] MD Other Provider Active Nikia Woodward , [facility] Other Provider Active Lauren Steiner MD Other Provider Active Team Status: Inactive Member Role Status Dates Hugo Moser JR DO Primary Care Provider Active Henrry Issa MD Attending Provider Active [employer] Director Relationship Specialty Start Date End Date Hugo Moser DO [address] [place] [address] PCP - General Internal Medicine 12/31/22 [employer] Director Relationship Specialty Start Date End Date Hugo Moser MD [address] [place] [address] PCP - General Internal Medicine 04/08/23 Team Status: Inactive Member Role Status Dates Hugo Moser JR DO Primary Care Provider Active Start: April 15, 2023 End: April 15, 2023 Henrry Issa MD Referring Provider Active Start: April 15, 2023 End: April 15, 2023 Sangita Salas APRN Attending Provider Active Start: April 15, 2023 End: April 15, 2023 [employer] Director Relationship Specialty Start Date End Date Hugo Moser DO PCP - General Internal Medicine 12/31/22 Team Status: Inactive Member Role Status Dates Hugo Moser JR DO Primary Care Provider Active Start: October 16, 2023 End: October 16, 2023 Henrry Issa MD Attending Provider Active Start: October 16, 2023 End: October 16, 2023 [place] [employer] Director Relationship Specialty Start Date End Date Hugo Moser MD [facility] [place] [address] PCP - General Internal Medicine 04/08/23 [employer] [employer] Director Relationship Specialty Start Date End Date Hugo Moser MD [facility] [place] [address] PCP - General Internal Medicine 04/08/23 [employer] [employer] Director Relationship Specialty Start Date End Date Hugo Moser MD [facility] [place] [address] PCP - General Internal Medicine 04/08/23 [employer] [employer] Director Relationship Specialty Start Date End Date Hugo Moser MD [address] [place] [address], [place] [address] PCP - General Internal Medicine 04/08/23 [facility] [employer] Director Relationship Specialty Start Date End Date Hugo Moser MD [facility] [place] [address] PCP - General Internal Medicine 04/08/23 [facility] [employer] Director Relationship Specialty Start Date End Date Hugo Moser MD [facility] [place] [address] PCP - General Internal Medicine 04/08/23 [facility] [employer] Director Relationship Specialty Start Date End Date Hugo Moser MD [facility] [place] [address] PCP - General Internal Medicine 04/08/23 [facility] [employer] Director Relationship Specialty Start Date End Date Hugo Moser MD [address] [place] [address], [place] [address] PCP - General Internal Medicine 04/08/23 [facility] [employer] Director Relationship Specialty Start Date End Date Hugo Moser MD [address] [place] [address] PCP - General Internal Medicine 04/08/23 [facility] [employer] Director Relationship Specialty Start Date End Date Hugo Moser DO PCP - General Internal Medicine 12/31/22 Reason for Visit (unrecogniz ed section and content) Reason Comments Follow-up Swelling and pain at pacemaker site.Placed 2 weeks ago. Specialty Diagnoses / Procedures Referred By Contac t Referred To Contact Cardiology Diagnoses AV block, Mobitz II Pacemaker Procedures Follow Up In Cardiology Henrry Issa MD [address] [place] [address], [address] [address] Referral ID Status Reason Start Date Expiration Date V isits Requested Visits Authorized [id number] Authorized 01/14/2023 01/14/2024 1 1 Reason Comments Pain Reason Comments Follow-up 6 month Specialty Diagnoses / Procedures Referred By Contac t Referred To Contact Cardiology Diagnoses AV block, Mobitz II Pacemaker Procedures Follow Up In Cardiology Henrry Issa MD [address] [place] [address] 2, [address] [address] Henrry Issa MD [address] [place] [address] 2, [address] [address] Referral ID Status Reason Start Date Expiration Date V isits Requested Visits Authorized [id number] Authorized 01/14/2023 01/14/2024 1 1 Reason Comments Diabetes Reason Comments DM Foot Care Dm nail care Reason Comments Follow-up Reason Comments Follow-up 6m Specialty Diagnoses / Procedures Referred By Contac t Referred To Contact Cardiology Diagnoses AV block, Mobitz II Procedures Follow Up In Cardiology Henrry Issa MD Ibrahim, Hassan M, MD [address] [place] [address] 2, [address] [place] [address] Phone: tel: fax: Referral ID Status Reason Start Date Expiration Date V isits Requested Visits Authorized [id number] Authorized 07/24/2023 07/23/2024 1 1 Goals (unrecognized section and content) [...] BE BASED ON THE PRIMARY CLINICAL RECORDS. [employer] provides no warranty or guarantee of the accuracy or completeness of information in this document.
[2024-03-19 19:28] VITALS: BP 134/56; PULSE 98; TEMP 36.9; O2SAT 95; BMI 27.9
--- NOTE | 2024-03-19 19:31 | XR_ITS ---
[facility] [place] [address] Patient Name: JOSE MIGUEL ANDERSON MRN: [id number] date: 1940 Sex: M Assigned Patient Location: ER Current Patient Location: Accession/Order Number: [id number] Exam Date: 03/19/2024 19:40 Report Date: 03/19/2024 21:22 At the request of: HARJIT MCQUEEN Procedure: XR chest 1V EXAMINATION: XR chest 1V, , 03/19/2024 7:40 PM EST INDICATION: cough, shortness of breath HISTORY: Ordering Provider Reason for Exam: cough, shortness of breath Technologist Note: Additional: COMPARISON: None. TECHNIQUE: Chest x-ray: One view. FINDINGS: No pneumothorax, pleural effusion or focal airspace consolidation. Heart is normal in size. Cardiac pacemaker is seen in place. Bony thorax is unremarkable. XR/XR chest 1V IMPRESSION: No acute cardiopulmonary process. Electronically authenticated by: DIANA HERNANDEZ Date: 03/19/2024 21:22
--- NOTE | 2024-03-19 19:32 | PC.NURSE ---
complains of cough, congestion, mid back pain onset a couple days
--- NOTE | 2024-03-19 19:34 | ED.GENADUL1 ---
HPI HPI - General Adult General Chief complaint: Upper Respiratory Infection Stated complaint: cough congestion Time Seen by Provider: 03/19/24 19:23 Source: patient Mode of arrival: walk-in Limitations: no limitations History of Present Illness HPI narrative: pt presents with several days of cough, cold symptoms. He complains of generalized fatigue but no focal weakness. No chest pain. He gets shortness of breath with exertion. No leg swelling or calf pain. No GI or symptoms. No fever. No flank or abdominal pain. His is in the NH but he is uncertain if there are outbreaks of influenza or covid. Related Data Home Medications ?Medication ?Instructions ?Recorded ?Confirmed acarbose 100 mg tablet mg 03/19/24 empagliflozin .ROUTE 03/19/24 empagliflozin .ROUTE 03/19/24 ezetimibe 10 mg tablet mg 03/19/24 finerenone 20 mg tablet (Kerendia) 20 mg PO DAILY 03/19/24 03/19/24 metformin 1,000 mg tablet mg 03/19/24 rosuvastatin 40 mg tablet mg 03/19/24 Previous Rx's ?Medication ?Instructions ?Recorded levofloxacin 750 mg tablet 750 mg PO DAILY 4 days #4 tabs 03/19/24 oseltamivir 75 mg capsule (Tamiflu) 75 mg PO BID 5 days #10 caps 03/19/24 Allergies Allergy/AdvReac Type Severity Reaction Status Date / Time No Known Drug Allergies Allergy Verified 03/19/24 19:23 Opioid HPI Opioid Management Most Recent Opioid Data: No Data to Display PFSH PFSH Social History Little interest or pleasure in doing things: not at all Feeling down, depressed, or hopeless: not at all Exam Narrative Exam Narrative: Nurses notes and vital signs reviewed and patient is not hypoxic. afebrile General: Well-appearing and in no apparent distress. Skin: Warm, dry, no pallor noted. No rash. Head: Normocephalic, atraumatic. Neck: Supple, non-tender. No cervical lymphadenopathy. No meningismus. Eye: Pupils are equal, round and EOMI. No scleral icterus. Ears, Nose, Mouth, and Throat: TM are clear, no posterior oropharynx erythema or nasal mucosal hypertrophy, uvula is mid-line Oral mucosa is moist Cardiovascular: Regular Rate and Rhythm without murmur, gallop or rub. Respiratory: No accessory muscle use or respiratory distress. Lungs are clear to auscultation, no wheezing, rales or rhonchi Musculoskeletal: normal ROM, no calf or popliteal tenderness, no lower extremity edema/swelling GI: Abdomen is soft, non-distended. Normal bowel sounds. No tenderness to palpation. No rebound, guarding, or rigidity noted. Neurological: A&O x4. No cranial nerve dysfunction observed. Able to sit up and stand up without assistance. No truncal ataxia. Moves all extremities. Sensation intact. Psychiatric: Cooperative and interactive. Normal mood and affect. Constitutional Vital Signs, click to edit/add: Last Vital Signs Temp 98.4 F 03/19/24 19:28 Pulse 98 H 03/19/24 19:28 Resp 19 03/19/24 19:28 BP 134/56 03/19/24 19:28 Pulse Ox 95 03/19/24 19:28 O2 Del Method Room Air 03/19/24 19:28 Course Vital Signs Vital signs: Vital Signs Temperature 98.4 F 03/19/24 19:28 Pulse Rate 98 H 03/19/24 19:28 Respiratory Rate 19 03/19/24 19:28 Blood Pressure 134/56 03/19/24 19:28 Pulse Oximetry 95 03/19/24 19:28 Oxygen Delivery Method Room Air 03/19/24 19:28 Temperature 98.4 F 03/19/24 19:28 Pulse Rate 98 H 03/19/24 19:28 Respiratory Rate 03/19/24 19:28 Blood Pressure 134/56 03/19/24 19:28 Pulse Oximetry 95 03/19/24 19:28 Oxygen Delivery Method Room Air 03/19/24 19:28 Medical Decision Making [facility] Narrative Medical decision making narrative: Patient with cough and cold symptoms generalized fatigue suggestive of possible viral infection. He denied any cardiac history. No palpitations, chest pain or shortness of breath while at rest. Unknown exposure at the retirement. Swabs obtained for COVID and influenza. Portable chest x-ray obtained. CXR reveals LLL infiltrate. He tested positive for influenza. He was started on tamiflu. Although the LLL pneumonia is likely viral from Infl A - he was started on Levaquin. Pt's vitals and general exam findings do not indicate a need for admission Pt informed of results andw as dsicharged home with prescriptions for tamiflu and Levaquin. Reasons for return to the ED discussed. Medical Records Medical records reviewed: Yes I reviewed the patient's medical records Lab Data Lab results reviewed: Yes I reviewed the patient's lab results Labs: Lab Results 03/19/24 03/19/24 Range/Units 19:42 19:47 Urine Color Lt. yellow (YELLOW) Urine Clarity Clear (CLEAR) Urine pH 5.5 (5.0-9.0) Ur Specific [place] 1.010 (1.005-1.025) Urine Protein Negative (NEG/TRACE) mg/dL Urine Glucose (UA) >=1000 A (NEGATIVE) mg/dL Urine Ketones Negative (NEGATIVE) mg/dL Urine Occult Blood Negative (NEGATIVE) Urine Nitrite Negative (NEGATIVE) Urine Bilirubin Negative (NEGATIVE) Urine Urobilinogen 0.2 (0.2-1.0) EU/dL Ur Leukocyte Esterase Negative (NEGATIVE) Influenza Type A Ag Positive A Influenza Type B Ag Negative SARS-CoV-2 Ag (CV2AG) Negative (NEGATIVE) Imaging Data Chest x-ray: My impression: Left lower lobe infiltrate Discharge Plan Discharge Chief Complaint: Upper Respiratory Infection Clinical Impression: Influenza, Community acquired pneumonia of left lower lobe of lung Patient Disposition: Home, Self-Care Time of Disposition Decision: 20:23 Prescriptions / Home Meds: New oseltamivir [Tamiflu] 75 mg capsule 75 mg PO BID 5 Days Qty: 10 0RF levofloxacin 750 mg tablet 750 mg PO DAILY 4 Days Qty: 4 0RF No Action acarbose 100 mg tablet metformin 1,000 mg tablet ezetimibe 10 mg tablet rosuvastatin 40 mg tablet empagliflozin [Jardiance] .ROUTE Kerendia 20 mg tablet 20 mg PO DAILY empagliflozin [Jardiance] .ROUTE Print Language: Dutch Instructions: Influenza (ED), Pneumonia (ED) Referrals: KEN MOSER DO [Primary Care Provider] - 1 week
[2024-03-19 19:59] LABS: Bilirubin Urine NEGATIVE (NEGATIVE); Blood Urine NEGATIVE (NEGATIVE); Clarity Urine CLEAR (CLEAR); Color Urine LT. YELLOW (YELLOW); Glucose Urine UA >=1000 mg/dL (NEGATIVE); Ketones Urine NEGATIVE (NEGATIVE); Leukocyte Esterase Urine NEGATIVE (NEGATIVE); Nitrite Urine NEGATIVE (NEGATIVE); Protein Urine NEGATIVE (NEG/TRACE); Urobilinogen Urine 0.2 EU/dL (0.2-1.0); pH Urine 5.5 (5.0-9.0)
[2024-03-19 20:05] LABS: Urine Microscopic Indicated NO
[2024-03-19 20:11] LABS: Influenza Virus A Antigen Positive; Influenza Virus B Antigen Negative; Internal Control Within Normal Limits
[2024-03-19 20:12] LABS: Internal Control Within Normal Limits; SARS-CoV-2 Ag NEGATIVE (NEGATIVE)
[2024-03-19] MEDS: OSELTAMIVIR PHOSPHATE 75 MG CAPSULE PO (20:27)
[2024-03-19] MEDS: LEVOFLOXACIN 750 MG TABLET PO (20:28)
--- NOTE | 2024-03-19 20:38 | PC.NURSE ---
i gave this patient verbal and paper discharge orders along with 2 e-scripts, and this patient voices yes to understanding these. at time of discharge this patient voices no concerns and shows no sign of distress
== END 2024-03-19 20:39 | disposition home or self-care (01) ==
PROVIDERS: Emergency Provider Emergency Medicine; PCP Internal Medicine
DX: J10.00 Influenza due to other identified influenza virus with unspecified type of pneumonia (principal); R06.02 Shortness of breath; Z95.0 Presence of cardiac pacemaker
CPT/HCPCS: 71045; 81003; 87804; 87811; 99284

== ENCOUNTER 2024-04-20 06:32 | Outpatient (OUT) | payer MEDICARE, SELFPAY ==
--- OUTSIDE RECORDS SUMMARY | 2024-04-19 11:12 | XMS_ITS | CCD ---
Author Organization [facility] CliniSyin Care Team Providers Care Dynamo Tender Name Role Phone SHANTI, DR ARIAS Admitting [...] Karieone, JR Hugo Ferris Primary Care Provider [phone] DO Jarred Cline Admit Provider MD Katie [...] Provider MD Jordan Bolanos Other Provider Crissy [facility] Nikia Ferris Other Provider [phone] MD Lauren Steiner Other Provider [phone] JR Hugo Moser Primary Care Provider DO Jarred Cline Admit Provider [phone] MD Katie Osborne Attending Provider SULEIMAN Prakash Other Provider Unavailable DO Aretha Chaparro Other Provider MD Stephanie Steward Other Provider MD Henrry Issa Other Provider MD Farzana Escalera Other Provider MD Hugo Johnson Other Provider BHAVIN Gregorio Other Provider MD Natacha Padron Other Provider MD Kang Douglas Other Provider MD Jordan Bolanos Other Provider Crissy [facility] Nikia Ferris Other Provider MD Lauren Steiner Other Provider MD Henrry Issa Attending Provider Hugo Moser DO Primary Care Provider Hugo Moser MD Primary Care Provider JR Hugo Moser Primary Care Provider [phone] MD Henrry Issa Referring Provider BHAVIN Gregorio Attending Provider Hugo Moser DO Primary Care Provider [phone] JR Hugo Moser Primary Care Provider [phone] MD Henrry Issa Attending Provider TRIP BROWN Attending Unavailable TRIP BROWN Referring Unavailable JR. NASREEN, GINI Griffin Attending Radha CÁRDENAS JR., GINI Griffin Attending UnavailVEDA Edwards Attending Unavailable HUGO MOSER Referring Unavailable KENNEDY CAMARA Attending Unavailable VEDA ROME Attending Unavailable JR. NASREEN, GINI Griffin Attending Unavaila HENRRY Ricketts Attending Unavailable HENRRY ISSA Referring Unavailable HUGO MOSER Primary Care Unavailable STEPHANIE STEWARD Attending Unavailable HENRRY ISSA Referring Unavailable HUGO MOSER Primary Care Unavailable Hugo Moser JR Primary Care Provider [phone] Henrry Issa MD Attending Provider Henrry Issa Admitting Unavail able Henrry Issa Attending Unavail able Hugo Moser Primary Care Unavailable Henrry Issa Admitting Unavail able Henrry Issa Attending Unavail able Hugo Moser Primary Care Unavailable Stephanie Steward Admitting Unavailable Stephanie Steward Attending Unavailable Hugo Moser Primary Care Unavailable Henrry Issa Admitting Unavail able Henrry Issa Attending Unavail able Hugo Moser Primary Care Unavailable Medications Current Medications Medication Drug Class(es) Dates Sig (Normalized) Sig (Original) acarbose 100 mg oral tablet (19 sources) alpha-Glucosidase Inhibitor Start: 12-28-2022 take 1 [...] 12/03/2023 Discontinued clindamycin 300 mg oral capsule (6 sources) Lincosamide Antibacterial Start: 12-31-2022 take 2 capsules by mouth three times daily Clindamycin Hcl 300 mg capsule Active 600 MG PO Three times daily 12 December 30, 2022 11:00pm Start: 12-31-2022 take 600 mg by mouth three times daily Clindamycin Hcl Active 600 MG PO Three times daily 12 December 31, 2022 12:00am Docusate (6 sources) Docusate Calcium (STOOL SOFTENER PO) Take by mouth Active empagliflozin 25 mg oral tablet (20 sources) Sodium-Glucose Cotransporter 2 Inhibitor Start: 11-11-19 take 1 tablet by mouth once daily Empagliflozin (Jardiance) 25 mg tablet Active 25 MG PO Daily December 27, 2022 11:00pm End: 12-03-2023 take 12.5 mg by mouth [...] mouth once daily. Active Finerenone (KERENDIA PO) (15 sources) Finerenone (KERE NDIA PO) Take 20 mg by mouth Active Finerenone (KERE NDIA PO) Take by mouth Active Finerenone (KERE NDIA PO) Take by mouth 0 Active 3 ml insulin degludec 100 unt/ml pen injector (4 sources) Insulin Analog Start: 01-18-2024 insulin deglud ec (Tresiba FlexTouch) 100 UNIT/ML injection Indications: Type 2 diabetes mellitus with hyperglycemia, without long-term current use of insulin ([facility]) Inject 12 Units under the skin Daily 15 mL 3 01/18/2024 Active metFORMIN hydrochloride 500 mg oral tablet (17 sources) Biguanide Start: 06-25-2023 End: 12-03-2023 take [...] SITagliptin 100 mg extended release oral tablet (11 sources) Biguanide, Dipeptidyl Peptidase 4 Inhibitor Start: [...] pen needle 33G x 4 mm misc (6 sources) Start: 01-18-2024 pen needle 33G x 4 mm misc Indications: Type 2 diabetes mell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, without long-term current use of insulin (HCC) ([facility]) Injections subcutaneous daily 100 each 3 01/18/2024 Active rivaroxaban 20 mg oral tablet (11 sources) Factor Xa Inhibitor Start: 12-08-2022 End: 03-09-2024 Rivaroxaban (Xarelto) 20 mg tablet Active MG TABLET December 29, 2022 11:00pm rosuvastatin calcium 40 mg oral tablet (20 sources) HMG-CoA Reductase Inhibitor Start: 11-11-2022 take 1 tablet by mouth once daily Rosuvastatin 40 mg Tablet Active 40 MG PO Daily December 27, 2022 11:00pm sacubitril 24 mg / valsartan 26 mg oral tablet (14 sources) Angiotensin 2 Receptor Maria Victoria Start: [...] sources) Amide Local Anesthetic Start: 4 End: bupivacaine PF (Marcaine) 0.5 % injection 0.5 [...] without long-term current use of insulin (HCC) ([facility]) Inject 15 Units under the skin Daily [...] tablet (2 sources) Nonsteroidal Anti-inflammatory Drug End: meloxicam (Mobic) 15 MG tablet 1 (one) [...] Date Episodic/Chronic Acute and unspecified renal failure (8 sources) Acute renal failure syndrome; Translations: [Acute kidney failure, unspecified] 12-28-2022 Episodic Comment on above: Problem List clean-u p per request of Phys. 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 tricuspid valve] 03-09-2024 Chronic Hypertension with complications and secondary hypertension (1 source) Hypertensive chronic kidney disease with stage 1 through stage 4 chronic kidney disease, or unspecified chronic kidney disease; Translations: [HTN CKD W/STAGE 1-4 CKD/UNS CKD] Onset: 2 Chronic Mycoses (2 sources) Pain in toe; Translations: [Tinea unguium] 12-06-2023 Episodic Osteoarthritis (17 sources) Arthritis of right acromioclavicular joint; Translations: [Primary osteoarthritis, right shoulder] Onset: 4 04-08-2023 Chronic Other aftercare (1 source) Other correction (current) drug therapy; 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] Onset: 3 Episodic Other [...] KIDNEY DISEASE STG 3 UNSP] Onset: 2 Past or Other Problems Problem Classification Problem Date Documented Da te Episodic/Chronic Phlebitis; thrombophlebitis and thromboembolism (17 sources) Deep venous thrombosis; Translations: [Acute embolism and thrombosis of unspecified deep veins of unspecified lower extremity] Onset: 01-14-2023 01-14-2023 Episodic Unclassified (3 sources) Onset: 01-14-2023 Resolved: 03-09-2024 01-14-2023 Results Test Name Value Interpretation Reference Range Facility ECG 12 [place] 03-09-2024 ECG reveals atrial s ensing and ventricular pacing rhythm, abnormal ECG [facility] Work Phone: HbA1c (Bld) [Mass fraction]o n 01-18-2024 Interpretation and review of laboratory results Abnormal [facility] - Hematology and Cell countson 01-18-2024 HbA1c (Bld) [Mass fraction] 10.4 % [facility] L Inj/Asp: R subacromial bur saon 04-08-2023 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 Pt given injection Right Shoulder SA space with 2ml of 2 % lidocaine (Code 48718 RT) Procedure, treatment alternatives, risks and benefits explained, specific risks discussed. Consent was given by the patient. [facility] M Inj/Asp: R acromioclavicul garrett 04-08-2023 [...] and draped in the usual sterile fashion. [facility] Basophils Auto (Bld) [#/Vol] Ordered By: Jarred Cline on 12-31-2022 Basophils (Bld) [#/Vol] 0.0 10*3/uL 0.0-0.2 [facility] Basophils/100 WBC Auto (Bld) Ordered By: Jarred Cline on 12-31-2022 Basophils/100 WBC (Bld) 0.6 % . [facility] Calcium [Mass/volume] in Ser um or PlasmaOrdered By: Jarred Cline on 12-31-2022 Calcium [Mass/Vol] 8.9 mg/dL 8.6-10.3 [facility] Carbon dioxide, total [Moles /volume] in Serum or PlasmaOrdered By: Jarred Cline on 12-31-2022 CO2 [Moles/Vol] 22.9 mmol/L 21.0-31.0 [facility] Chloride [Moles/volume] in S chiquis or PlasmaOrdered By: Jarred Cline on 12-31-2022 Chloride [Moles/Vol] 106 mmol/L 98-107 [facility] Creatinine [Mass/volume] in Serum or PlasmaOrdered By: Jarred Cline on 12-31-2022 Creatinine [Mass/Vol] 1.20 mg/dL 0.70-1.30 [facility] Eosinophils Auto (Bld) [#/Vo l]Ordered By: Jarred Cline on 12-31-2022 Eosinophils (Bld) [#/Vol] 0.1 10*3/uL 0.0-0.45 [facility] Eosinophils/100 WBC Auto (Bl d)Ordered By: Jarred Cline on 12-31-2022 Eosinophils/100 WBC (Bld) 1.6 % . [facility] Erythrocyte distribution wid th Auto (RBC) [Ratio]Ordered By: Jarred Cline on 12-31-2022 Erythrocyte distribution width (RBC) [Ratio] 14.9 % 12.0-14.8 [facility] Glucose [Mass/volume] in Ser um or PlasmaOrdered By: Jarred Cline on 12-31-2022 Glucose [Mass/Vol] 175 mg/dL 70-100 [facility] Comment on above: ADA recommended refe rence rangeRandom Glucose Reference Range is dependent on time and content of last meal. Glucose of more than 200 mg/dL in a nonstressed, ambulatory subject supports the diagnosis of Diabetes Mellitus. Hematocrit Auto (Bld) [Volum e fraction]Ordered By: Jarred Cline on 12-31-2022 Hematocrit (Bld) [Volume fraction] 39.1 % 38.8-50.0 [facility] Hemoglobin [Mass/volume] in BloodOrdered By: Jarred Cline on 12-31-2022 Hemoglobin (Bld) [Mass/Vol] 13.0 g/dL 13.0-17.0 [facility] Leukocytes [#/volume] correc adela for nucleated erythrocytes in Blood by Automated counOrdered By: Jarred Cline on 12-31-2022 WBC corrected for nucl RBC Auto (Bld) [#/Vol] 6.7 10*3/uL 4.1-10.5 [facility] Lymphocytes Auto (Bld) [#/Vo l]Ordered By: Jarred Cline on 12-31-2022 Lymphocytes (Bld) [#/Vol] 1.9 10*3/uL 1.00-4.8 [facility] Lymphocytes/100 WBC Auto (Bl d)Ordered By: Jarred Cline on 12-31-2022 Lymphocytes/100 WBC (Bld) 27.7 % . [facility] MCH Auto (RBC) [Entitic mass ]Ordered By: Jarred Cline on 12-31-2022 MCH (RBC) [Entitic mass] 30.5 pg 27.5-35.2 [facility] MCHC Auto (RBC) [Mass/Vol]Or dered By: Jarred Cline on 12-31-2022 MCHC (RBC) [Mass/Vol] 33.3 g/dL 32.5-35.6 [facility] MCV Auto (RBC) [Entitic vol] Ordered By: Jarred Cline on 12-31-2022 MCV (RBC) [Entitic vol] 91.5 fL 83.5-101 [facility] Magnesium [Mass/volume] in S chiquis or PlasmaOrdered By: Jarred Cline on 12-31-2022 Magnesium [Mass/Vol] 2.1 mg/dL 1.9-2.7 [facility] Monocytes Auto (Bld) [#/Vol] Ordered By: Jarred Cline on 12-31-2022 Monocytes (Bld) [#/Vol] 0.6 10*3/uL 0.0-0.8 [facility] Monocytes/100 WBC Auto (Bld) Ordered By: Jarred Cline on 12-31-2022 Monocytes/100 WBC (Bld) 8.9 % . [facility] Neutrophils Auto (Bld) [#/Vo l]Ordered By: Jarred Cline on 12-31-2022 Neutrophils (Bld) [#/Vol] 4.1 10*3/uL 1.8-7.7 [facility] Neutrophils/100 WBC Auto (Bl d)Ordered By: Jarred Cline on 12-31-2022 Neutrophils/100 WBC (Bld) 61.2 % . [facility] No Panel InformationOrdered By: Jarred Cline on 12-31-2022 Estimated GFR (CKD-EPI) > 60.0 mL/Min [facility] Creatinine Clearance (Chem 48.99 [facility] Nucleated erythrocytes [Pres ence] in Blood by Automated countOrdered By: Jarred Cline on 12-31-2022 Nucleated RBC Auto Ql (Bld) 0.0 /100{WBC} 0-0.5 [facility] Platelet mean volume Auto (B ld) [Entitic vol]Ordered By: Jarred Cline on 12-31-2022 Platelet mean volume (Bld) [Entitic vol] 7.2 fL 6.6-10.1 [facility] Platelets Auto (Bld) [#/Vol] Ordered By: Jarred Cline on 12-31-2022 Platelets (Bld) [#/Vol] 148 10*3/uL 150-450 [facility] Potassium [Moles/volume] in Serum or PlasmaOrdered By: Jarred Cline on 12-31-2022 Potassium [Moles/Vol] 4.1 mmol/L 3.5-5.1 [facility] RBC Auto (Bld) [#/Vol]Ordere d By: Jarred Cline on 12-31-2022 RBC (Bld) [#/Vol] 4.27 10*6/uL 3.90-5.60 [facility] Serum or plasma anion gap de terminationOrdered By: Jarred Cline on 12-31-2022 Anion gap [Moles/Vol] 12.2 mmol/L 6.0-15.0 [facility] Sodium [Moles/volume] in Ser um or PlasmaOrdered By: Jarred Cline on 12-31-2022 Sodium [Moles/Vol] 137 mmol/L 136-145 [facility] Urea nitrogen [Mass/volume] in Serum or PlasmaOrdered By: Jarred Cline on 12-31-2022 Urea nitrogen [Mass/Vol] 23 mg/dL 7-25 [facility] WBC Auto (Bld) [#/Vol]Ordere d By: Jarred Cline on 12-31-2022 WBC (Bld) [#/Vol] 6.7 10*3/uL 4.1-10.5 [facility] Activated partial thrombopla stin time (aPTT) in platelet poor plasma by coagulation aOrdered By: Henrry Issa on 12-30-2022 aPTT Coag (PPP) [Time] 30.2 s 25.1-36.5 [facility] Comment on above: A hematocrit value g reater than 55% may lead to inaccurate results in coagulation testing. Patients having hematocrit values >55% require a special collection tube for coagulation studies. Please contact the laboratory at [phone] for redraw instructions. Glucose Glucometer (dC) [M ass/Vol]Ordered By: Katie Osborne on 12-30-2022 Glucose [Mass/Vol] 183 mg/dL [facility] Comment on above: Random Glucose Refer ence Range is dependent on time and content of last meal. Glucose of more than 200 mg/dL in a nonstressed, ambulatory subject supports the diagnosis of Diabetes Mellitus. INR in Platelet poor plasma by Coagulation assayOrdered By: Henrry Issa on 12-30-2022 INR Coag (PPP) [Relative time] 1.1 {INR} [facility] Comment on above: INR Therapeutic Rang [...] PT Coag (PPP) [Time] 13.1 s 9.0-12.9 [facility] Comment on above: A hematocrit value g reater than 55% may lead to inaccurate results in coagulation testing. Patients having hematocrit values >55% require a special collection tube for coagulation studies. Please contact the laboratory at [phone] for redraw instructions. Cholesterol [Mass/volume] in Serum or PlasmaOrdered By: Jarred Cline on 12-29-2022 Cholesterol [Mass/Vol] 96 mg/dL 140-200 [facility] Comment on above: Chol less than 200 m g/dl low riskChol 201-239 mg/dl borderline riskChol 240 mg/dl and greater high risk Cholesterol in LDL Calc [Mas s/Vol]Ordered By: Jarred Cline on 12-29-2022 Cholesterol in LDL [Mass/Vol] 40 mg/dL 0-100 [facility] Comment on above: LDL ATP III CLASSIFI CATIONLDL less than 100 mg/dL OptimalLDL 100-129 mg/dL Near or above optimalLDL 130-159 mg/dL Borderline highLDL 160-189 mg/dL HighLDL greater than 189 mg/dL Very high Cholesterol in VLDL Calc [Ma ss/Vol]Ordered By: Jarred Cline on 12-29-2022 Cholesterol in VLDL [Mass/Vol] 26 mg/dL [facility] Serum or plasma high density lipoprotein (HDL) cholesterol measurementOrdered By: Jarred Cline on 12-29-2022 Cholesterol in HDL [Mass/Vol] 30 mg/dL 23-92 [facility] Comment on above: HDL CHOL ATP-III CLA SSIFICATION Cardiovascular RiskHDL > or equal to 60 mg/dL LOWHDL < 40 mg/dL HIGH Serum or plasma total choles terol/high density lipoprotein (HDL) cholesterol mass ratOrdered By: Jarred Cline on 12-29-2022 Cholesterol.total/Chol esterol in HDL [Mass ratio] 3.2 {ratio} <5.0 [facility] Triglyceride [Mass/volume] i n Serum or PlasmaOrdered By: Jarred Cline on 12-29-2022 Triglyceride [Mass/Vol] 132 mg/dL 0-149 [facility] Comment on above: TRIG ATP III [...] from glycated hemoglobin (Bld) [Mass/Vol] 212 mg/dL [facility] Hemoglobin A1c percentageOrd ered By: Jarred Cline on 12-28-2022 HbA1c (Bld) [Mass fraction] 9.0 % 4.3-5.6 [facility] Comment on above: Increased risk for d iabetes: 5.7 - 6.4diabetes: >6.4glycemic control for adults with diabetes: <7.0 BNPon 05-19-2022 Natriuretic peptide B (Bld) [Mass/Vol] 74.0 pg/mL Normal <=1,800.0 [facility] Comment on above: Performed By: #### E LEC, BUN, BNP, LIVER, CREA #### [facility] [address] [place] [address] Dr. Brissa Ma BUNon 05-19-2022 Urea nitrogen [Mass/Vol] 41.0 mg/dL Critically high 7.0-18.0 [facility] Comment on above: Performed By: #### E LEC, BUN, BNP, LIVER, CREA #### [facility] [address] [address] [address] Brissa Ma CBC AUTO DIFFon 05-19-2022 BASO # 0.1 103/ul Normal 0.0-0.1 [facility] Comment on above: Performed By: #### E LEC, BUN, BNP, LIVER, CREA #### [facility] [address] [place] [address] Dr. Brissa Ma Basophils/100 WBC (Bld) 0.8 % Normal 0.2-2.0 [facility] Comment on above: Performed By: #### E LEC, BUN, BNP, LIVER, CREA #### [facility] [address] [address] [address] Brissa Ma EO # 0.1 103/ul Normal 0.0-0.7 [facility] Comment on above: Performed By: #### E LEC, BUN, BNP, LIVER, CREA #### [facility] [address] [place] [address] Dr. Brissa Ma Eosinophils/100 WBC (Bld) 1.1 % Normal 0.9-7.0 [facility] Comment on above: Performed By: #### E LEC, BUN, BNP, LIVER, CREA #### [facility] [address] [place] [address] Dr. Brissa Ma Erythrocyte distribution width (RBC) [Ratio] 14.1 % Normal 11.0-15.0 [facility] Comment on above: Performed By: #### E LEC, BUN, BNP, LIVER, CREA #### [facility] [address] [place] [address] Dr. Brissa Ma Hematocrit (Bld) [Volume fraction] 47.8 % Normal 42.0-54.0 [facility] Comment on above: Performed By: #### E LEC, BUN, BNP, LIVER, CREA #### [facility] [address] [place] [address] Dr. Brissa Ma Hemoglobin (Bld) [Mass/Vol] 15.3 g/dL Normal 14.0-18.0 [facility] Comment on above: Performed By: #### E LEC, BUN, BNP, LIVER, CREA #### [facility] [address] [place] [address] Dr. Brissa Ma IG # 0.17 10e3/ul Critically high 0.00-0.03 [facility] Comment on above: Performed By: #### E LEC, BUN, BNP, LIVER, CREA #### [facility] [address] [place] [address] Dr. Brissa Ma IG % 1.7 % Critically high 0.0-0.5 [facility] Comment on above: Performed By: #### E LEC, BUN, BNP, LIVER, CREA #### [facility] [address] [place] [address] Dr. Brissa Ma LYMPH # 3.8 103/ul Normal 1.2-3.8 [facility] Comment on above: Performed By: #### E LEC, BUN, BNP, LIVER, CREA #### [facility] [address] [place] [address] Dr. Brissa Ma Lymphocytes/100 WBC (Bld) 38.4 % Normal 20.5-60.0 [facility] Comment on above: Performed By: #### E LEC, BUN, BNP, LIVER, CREA #### [facility] [address] [place] [address] Dr. Brissa Ma MANUAL DIFF REQ NO Normal [facility] Comment on above: Performed By: #### E LEC, BUN, BNP, LIVER, CREA #### [facility] [address] [place] [address] Dr. Brissa Ma MCH (RBC) [Entitic mass] 30.2 pg Normal 25.9-34.0 [facility] Comment on above: Performed By: #### E LEC, BUN, BNP, LIVER, CREA #### [facility] [address] [place] [address] Dr. Brissa Ma MCHC (RBC) [Mass/Vol] 32.0 g/dL Normal 29.9-35.2 [facility] Comment on above: Performed By: #### E LEC, BUN, BNP, LIVER, CREA #### [facility] [address] [place] [address] Dr. Brissa Ma MCV (RBC) [Entitic vol] 94.3 fL Critically high 80.0-94.0 [facility] Comment on above: Performed By: #### E LEC, BUN, BNP, LIVER, CREA #### [facility] [address] [place] [address] Dr. Brissa Ma MONO # 0.7 103/ul Normal 0.3-0.8 [facility] Comment on above: Performed By: #### E LEC, BUN, BNP, LIVER, CREA #### [facility] [address] [place] [address] Dr. Brissa Ma Monocytes/100 WBC (Bld) 7.4 % Normal 1.7-12.0 [facility] Comment on above: Performed By: #### E LEC, BUN, BNP, LIVER, CREA #### [facility] [address] [place] [address] Dr. Brissa Ma NEUT # 5.0 103/ul Normal 1.4-6.5 [facility] Comment on above: Performed By: #### E LEC, BUN, BNP, LIVER, CREA #### [facility] [address] [address] [address] Brissa Ma Neutrophils/100 WBC (Bld) 50.6 % Normal 43.0-75.0 [facility] Comment on above: Performed By: #### E LEC, BUN, BNP, LIVER, CREA #### [facility] [address] [place] [address] Dr. Brissa Ma Platelet mean volume (Bld) [Entitic vol] 9.0 fL Critically low 9.5-13.5 [facility] Comment on above: Performed By: #### E LEC, BUN, BNP, LIVER, CREA #### [facility] [address] [place] [address] Dr. Brissa Ma PLT 205 103/ul Normal 150-450 [facility] Comment on above: Performed By: #### E LEC, BUN, BNP, LIVER, CREA #### [facility] [address] [place] [address] Dr. Brissa Ma RBC 5.07 106/ul Normal 4.70-6.10 [facility] Comment on above: Performed By: #### E LEC, BUN, BNP, LIVER, CREA #### [facility] [address] [place] [address] Dr. Brissa Ma WBC 9.9 103/ul Normal 4.0-11.0 [facility] Comment on above: Performed By: #### E LEC, BUN, BNP, LIVER, CREA #### [facility] [address] [place] [address] Dr. Brissa Ma CREATININEon 05-19-2022 Creatinine [Mass/Vol] 1.60 mg/dL Critically high 0.70-1.30 [facility] Comment on above: Performed By: #### E LEC, BUN, BNP, LIVER, CREA #### [facility] [address] [place] [address] Dr. Brissa Ma EGFR-AF [place] 50 mL/min/1.73m2 Critically low >=60 [facility] Comment on above: Performed By: #### E LEC, BUN, BNP, LIVER, CREA #### [facility] [address] [address] [address] Brissa Ma EGFR-NON AF [place] 42 mL/min/1.73m2 Critically low >=60 [facility] Comment on above: Performed By: #### E LEC, BUN, BNP, LIVER, CREA #### [facility] [address] [address] [address] Brissa Ma ELECTROLYTESon 05-19-2022 Anion gap [Moles/Vol] 15.5 mmol/L Normal [facility] Comment on above: Performed By: #### E LEC, BUN, BNP, LIVER, CREA #### [facility] [address] [address] [address] Brissa Ma Chloride [Moles/Vol] 102 mmol/L Normal 98-107 [facility] Comment on above: Performed By: #### E LEC, BUN, BNP, LIVER, CREA #### [facility] [address] [place] [address] Dr. Brissa Ma CO2 [Moles/Vol] 25.5 mmol/L Normal 21.0-32.0 [facility] Comment on above: Performed By: #### E LEC, BUN, BNP, LIVER, CREA #### [facility] [address] [place] [address] Dr. Brissa Ma Potassium [Moles/Vol] 5.0 mmol/L Normal 3.5-5.1 [facility] Comment on above: Performed By: #### E LEC, BUN, BNP, LIVER, CREA #### [facility] [address] [place] [address] Dr. Brissa Ma Sodium [Moles/Vol] 138 mmol/L Normal 136-145 [facility] Comment on above: Performed By: #### E LEC, BUN, BNP, LIVER, CREA #### [facility] [address] [place] [address] Dr. Brissa Ma GLYCOHEMOGLOBIN A1Con 2022 ADA RECOMMENDATION SEE BELOW Normal [facility] Comment on above: Result Comment: ADA RECOMMENDED LIMIT 4.0 - 6.0 ADA THERAPEUTIC TARGET < 7.0 ACTION SUGGESTED > 7.0 Performed By: #### A 1C #### [facility] [address] [place] [address] Dr. Brissa Ma Glucose [Mass/Vol] 203 mg/dL Normal [facility] Comment on above: Performed By: #### A 1C #### [facility] [address] [place] [address] Dr. Brissa Ma HbA1c (Bld) [Mass fraction] 8.7 % Critically high 4.5-6.2 [facility] Comment on above: Performed By: #### A 1C #### [facility] [address] [place] [address] Dr. Brissa Ma LIVER PROFILEon 05-19-2022 Albumin [Mass/Vol] 3.7 g/dL Normal 3.4-5.0 [facility] Comment on above: Performed By: #### E LEC, BUN, BNP, LIVER, CREA #### [facility] [address] [place] [address] Dr. Brissa Ma Albumin/Globulin [Mass ratio] 1.0 {ratio} Normal [facility] Comment on above: Performed By: #### E LEC, BUN, BNP, LIVER, CREA #### [facility] [address] [place] [address] Dr. Brissa Ma ALP [Catalytic activity/Vol] 80 U/L Normal 46-116 [facility] Comment on above: Performed By: #### E LEC, BUN, BNP, LIVER, CREA #### [facility] [address] [place] [address] Dr. Brissa Ma ALT [Catalytic activity/Vol] 16 U/L Normal 16-63 [facility] Comment on above: Performed By: #### E LEC, BUN, BNP, LIVER, CREA #### [facility] [address] [place] [address] Dr. Brissa Ma AST [Catalytic activity/Vol] 18 U/L Normal 15-37 [facility] Comment on above: Performed By: #### E LEC, BUN, BNP, LIVER, CREA #### [facility] [address] [place] [address] Dr. Brissa Ma BILI, CONJUGATED 0.1 mg/dL Normal 0.0-0.2 [facility] Comment on above: Performed By: #### E LEC, BUN, BNP, LIVER, CREA #### [facility] [address] [place] [address] Dr. Brissa Ma Bilirubin [Mass/Vol] 0.7 mg/dL Normal 0.2-1.0 [facility] Comment on above: Performed By: #### E LEC, BUN, BNP, LIVER, CREA #### [facility] [address] [place] [address] Dr. Brissa Ma Globulin (S) [Mass/Vol] 3.8 g/dL Normal [facility] Comment on above: Performed By: #### E LEC, BUN, BNP, LIVER, CREA #### [facility] [address] [place] [address] Dr. Brissa Ma Protein [Mass/Vol] 7.5 g/dL Normal 6.4-8.2 [facility] Comment on above: Performed By: #### E LEC, BUN, BNP, LIVER, CREA #### [facility] [address] [place] [address] Dr. Brissa Ma BNPon 01-22-2022 Natriuretic peptide B (Bld) [Mass/Vol] 150.0 pg/mL Normal <=1,800.0 [facility] Comment on above: Performed By: #### E LEC, BUN, BNP, LIVER, CREA #### [facility] [address] [place] [address] Dr. Brissa Ma BUNon 01-22-2022 Urea nitrogen [Mass/Vol] 22.0 mg/dL Critically high 7.0-18.0 [facility] Comment on above: Performed By: #### E LEC, BUN, BNP, LIVER, CREA #### [facility] [address] [place] [address] Dr. Brissa Ma CBC AUTO DIFFon 01-22-2022 BASO # 0.0 103/ul Normal 0.0-0.1 [facility] Comment on above: Performed By: #### E LEC, BUN, BNP, LIVER, CREA #### [facility] [address] [place] [address] Dr. Brissa Ma Basophils/100 WBC (Bld) 0.5 % Normal 0.2-2.0 [facility] Comment on above: Performed By: #### E LEC, BUN, BNP, LIVER, CREA #### [facility] [address] [place] [address] Dr. Brissa Ma EO # 0.1 103/ul Normal 0.0-0.7 [facility] Comment on above: Performed By: #### E LEC, BUN, BNP, LIVER, CREA #### [facility] [address] [place] [address] Dr. Brissa Ma Eosinophils/100 WBC (Bld) 1.9 % Normal 0.9-7.0 [facility] Comment on above: Performed By: #### E LEC, BUN, BNP, LIVER, CREA #### [facility] [address] [place] [address] Dr. Brissa Ma Erythrocyte distribution width (RBC) [Ratio] 14.1 % Normal 11.0-15.0 [facility] Comment on above: Performed By: #### E LEC, BUN, BNP, LIVER, CREA #### [facility] [address] [place] [address] Dr. Brissa Ma Hematocrit (Bld) [Volume fraction] 43.1 % Normal 42.0-54.0 [facility] Comment on above: Performed By: #### E LEC, BUN, BNP, LIVER, CREA #### [facility] [address] [place] [address] Dr. Brissa Ma Hemoglobin (Bld) [Mass/Vol] 13.7 g/dL Critically low 14.0-18.0 [facility] Comment on above: Performed By: #### E LEC, BUN, BNP, LIVER, CREA #### [facility] [address] [place] [address] Dr. Brissa Ma IG # 0.05 10e3/ul Critically high 0.00-0.03 [facility] Comment on above: Performed By: #### E LEC, BUN, BNP, LIVER, CREA #### [facility] [address] [place] [address] Dr. Brissa Ma IG % 0.8 % Critically high 0.0-0.5 [facility] Comment on above: Performed By: #### E LEC, BUN, BNP, LIVER, CREA #### [facility] [address] [place] [address] Dr. Brissa Ma LYMPH # 2.7 103/ul Normal 1.2-3.8 [facility] Comment on above: Performed By: #### E LEC, BUN, BNP, LIVER, CREA #### [facility] [address] [place] [address] Dr. Brissa Ma Lymphocytes/100 WBC (Bld) 42.1 % Normal 20.5-60.0 [facility] Comment on above: Performed By: #### E LEC, BUN, BNP, LIVER, CREA #### [facility] [address] [place] [address] Dr. Brissa Ma MANUAL DIFF REQ NO Normal [facility] Comment on above: Performed By: #### E LEC, BUN, BNP, LIVER, CREA #### [facility] [address] [place] [address] Dr. Brissa Ma MCH (RBC) [Entitic mass] 29.8 pg Normal 25.9-34.0 [facility] Comment on above: Performed By: #### E LEC, BUN, BNP, LIVER, CREA #### [facility] [address] [place] [address] Dr. Brissa Ma MCHC (RBC) [Mass/Vol] 31.8 g/dL Normal 29.9-35.2 [facility] Comment on above: Performed By: #### E LEC, BUN, BNP, LIVER, CREA #### [facility] [address] [place] [address] Dr. Brissa Ma MCV (RBC) [Entitic vol] 93.9 fL Normal 80.0-94.0 [facility] Comment on above: Performed By: #### E LEC, BUN, BNP, LIVER, CREA #### [facility] [address] [place] [address] Dr. Brissa Ma MONO # 0.5 103/ul Normal 0.3-0.8 [facility] Comment on above: Performed By: #### E LEC, BUN, BNP, LIVER, CREA #### [facility] [address] [place] [address] Dr. Brissa Ma Monocytes/100 WBC (Bld) 7.8 % Normal 1.7-12.0 [facility] Comment on above: Performed By: #### E LEC, BUN, BNP, LIVER, CREA #### [facility] [address] [place] [address] Dr. Brissa Ma NEUT # 3.0 103/ul Normal 1.4-6.5 [facility] Comment on above: Performed By: #### E LEC, BUN, BNP, LIVER, CREA #### [facility] [address] [place] [address] Dr. Brissa Ma Neutrophils/100 WBC (Bld) 46.9 % Normal 43.0-75.0 [facility] Comment on above: Performed By: #### E LEC, BUN, BNP, LIVER, CREA #### [facility] [address] [place] [address] Dr. Brissa Ma Platelet mean volume (Bld) [Entitic vol] 9.2 fL Critically low 9.5-13.5 [facility] Comment on above: Performed By: #### E LEC, BUN, BNP, LIVER, CREA #### [facility] [address] [place] [address] Dr. Brissa Ma PLT 163 103/ul Normal 150-450 [facility] Comment on above: Performed By: #### E LEC, BUN, BNP, LIVER, CREA #### [facility] [address] [place] [address] Dr. Brissa Ma RBC 4.59 106/ul Critically low 4.70-6.10 [facility] Comment on above: Performed By: #### E LEC, BUN, BNP, LIVER, CREA #### [facility] [address] [place] [address] Dr. Brissa Ma WBC 6.4 103/ul Normal 4.0-11.0 [facility] Comment on above: Performed By: #### E LEC, BUN, BNP, LIVER, CREA #### [facility] [address] [place] [address] Dr. Brissa Ma CREATININEon 01-22-2022 Creatinine [Mass/Vol] 1.47 mg/dL Critically high 0.70-1.30 [facility] Comment on above: Performed By: #### E LEC, BUN, BNP, LIVER, CREA #### [facility] [address] [place] [address] Dr. Brissa Ma EGFR-AF [place] 56 mL/min/1.73m2 Critically low >=60 [facility] Comment on above: Performed By: #### E LEC, BUN, BNP, LIVER, CREA #### [facility] [address] [place] [address] Dr. Brissa Ma EGFR-NON AF [place] 46 mL/min/1.73m2 Critically low >=60 [facility] Comment on above: Performed By: #### E LEC, BUN, BNP, LIVER, CREA #### [facility] [address] [place] [address] Dr. Brissa Ma ELECTROLYTESon 01-22-2022 Anion gap [Moles/Vol] 10.1 mmol/L Normal [facility] Comment on above: Performed By: #### E LEC, BUN, BNP, LIVER, CREA #### [facility] [address] [place] [address] Dr. Brissa Ma Chloride [Moles/Vol] 106 mmol/L Normal 98-107 [facility] Comment on above: Performed By: #### E LEC, BUN, BNP, LIVER, CREA #### [facility] [address] [place] [address] Dr. Brissa Ma CO2 [Moles/Vol] 28.4 mmol/L Normal 21.0-32.0 [facility] Comment on above: Performed By: #### E LEC, BUN, BNP, LIVER, CREA #### [facility] [address] [place] [address] Dr. Brissa Ma Potassium [Moles/Vol] 4.5 mmol/L Normal 3.5-5.1 [facility] Comment on above: Performed By: #### E LEC, BUN, BNP, LIVER, CREA #### [facility] [address] [place] [address] Dr. Brissa Ma Sodium [Moles/Vol] 140 mmol/L Normal 136-145 [facility] Comment on above: Performed By: #### E LEC, BUN, BNP, LIVER, CREA #### [facility] [address] [place] [address] Dr. Brissa Ma GLYCOHEMOGLOBIN A1Con 2021 ADA RECOMMENDATION SEE BELOW Normal [facility] Comment on above: Result Comment: ADA RECOMMENDED LIMIT 4.0 - 6.0 ADA THERAPEUTIC TARGET < 7.0 ACTION SUGGESTED > 7.0 Performed By: #### A 1C #### [facility] [address] [place] [address] Dr. Brissa Ma Glucose [Mass/Vol] 223 mg/dL Normal [facility] Comment on above: Performed By: #### A 1C #### [facility] [address] [place] [address] Dr. Brissa Ma HbA1c (Bld) [Mass fraction] 9.4 % Critically high 4.5-6.2 [facility] Comment on above: Performed By: #### A 1C #### [facility] [address] [place] [address] Dr. Brissa Ma LIVER PROFILEon 01-22-2022 Albumin [Mass/Vol] 3.6 g/dL Normal 3.4-5.0 [facility] Comment on above: Performed By: #### E LEC, BUN, BNP, LIVER, CREA #### [facility] [address] [place] [address] Dr. Brissa Ma Albumin/Globulin [Mass ratio] 1.0 {ratio} Normal [facility] Comment on above: Performed By: #### E LEC, BUN, BNP, LIVER, CREA #### [facility] [address] [place] [address] Dr. Brissa Ma ALP [Catalytic activity/Vol] 86 U/L Normal 46-116 [facility] Comment on above: Performed By: #### E LEC, BUN, BNP, LIVER, CREA #### [facility] [address] [place] [address] Dr. Brissa Ma ALT [Catalytic activity/Vol] 18 U/L Normal 16-63 [facility] Comment on above: Performed By: #### E LEC, BUN, BNP, LIVER, CREA #### [facility] [address] [place] [address] Dr. Brissa Ma AST [Catalytic activity/Vol] 20 U/L Normal 15-37 [facility] Comment on above: Performed By: #### E LEC, BUN, BNP, LIVER, CREA #### [facility] [address] [place] [address] Dr. Brissa Ma BILI, CONJUGATED 0.1 mg/dL Normal 0.0-0.2 [facility] Comment on above: Performed By: #### E LEC, BUN, BNP, LIVER, CREA #### [facility] [address] [place] [address] Dr. Brissa Ma Bilirubin [Mass/Vol] 0.4 mg/dL Normal 0.2-1.0 [facility] Comment on above: Performed By: #### E LEC, BUN, BNP, LIVER, CREA #### [facility] [address] [place] [address] Dr. Brissa Ma Globulin (S) [Mass/Vol] 3.7 g/dL Normal [facility] Comment on above: Performed By: #### E LEC, BUN, BNP, LIVER, CREA #### [facility] [address] [place] [address] Dr. Brissa Ma Protein [Mass/Vol] 7.3 g/dL Normal 6.4-8.2 [facility] Comment on above: Performed By: #### E LEC, BUN, BNP, LIVER, CREA #### [facility] [address] [place] [address] Dr. Brissa PARRon 10-08-2021 Urea nitrogen [Mass/Vol] 25.0 mg/dL Critically high 7.0-18.0 [facility] Comment on above: Performed By: #### E LEC, BUN, BNP, LIVER, CREA #### [facility] [address] [place] [address] Dr. Brissa Ma CBC AUTO DIFFon 10-08-2021 BASO # 0.1 103/ul Normal 0.0-0.1 [facility] Comment on above: Performed By: #### C BC #### [facility] [address] [place] [address] Dr. Brissa Ma Basophils/100 WBC (Bld) 0.7 % Normal 0.2-2.0 [facility] Comment on above: Performed By: #### C BC #### [facility] [address] [place] [address] Dr. Brissa Ma EO # 0.1 103/ul Normal 0.0-0.7 [facility] Comment on above: Performed By: #### C BC #### [facility] [address] [place] [address] Dr. Brissa Ma Eosinophils/100 WBC (Bld) 1.8 % Normal 0.9-7.0 [facility] Comment on above: Performed By: #### C BC #### [facility] [address] [place] [address] Dr. Brissa Ma Erythrocyte distribution width (RBC) [Ratio] 14.1 % Normal 11.0-15.0 [facility] Comment on above: Performed By: #### C BC #### [facility] [address] [place] [address] Dr. Brissa Ma Hematocrit (Bld) [Volume fraction] 41.9 % Critically low 42.0-54.0 [facility] Comment on above: Performed By: #### C BC #### [facility] [address] [place] [address] Dr. Brissa Ma Hemoglobin (Bld) [Mass/Vol] 13.3 g/dL Critically low 14.0-18.0 [facility] Comment on above: Performed By: #### C BC #### [facility] [address] [place] [address] Dr. Brissa Ma IG # 0.06 10e3/ul Critically high 0.00-0.03 [facility] Comment on above: Performed By: #### C BC #### [facility] [address] [place] [address] Dr. Brissa Ma IG % 0.9 % Critically high 0.0-0.5 [facility] Comment on above: Performed By: #### C BC #### [facility] [address] [place] [address] Dr. Brissa Ma LYMPH # 2.6 103/ul Normal 1.2-3.8 [facility] Comment on above: Performed By: #### C BC #### [facility] [address] [place] [address] Dr. Brissa Ma Lymphocytes/100 WBC (Bld) 37.8 % Normal 20.5-60.0 [facility] Comment on above: Performed By: #### C BC #### [facility] [address] [place] [address] Dr. Brissa Ma MANUAL DIFF REQ NO Normal [facility] Comment on above: Performed By: #### C BC #### [facility] [address] [place] [address] Dr. Brissa Ma MCH (RBC) [Entitic mass] 30.4 pg Normal 25.9-34.0 [facility] Comment on above: Performed By: #### C BC #### [facility] [address] [place] [address] Dr. Brissa Ma MCHC (RBC) [Mass/Vol] 31.7 g/dL Normal 29.9-35.2 [facility] Comment on above: Performed By: #### C BC #### [facility] [address] [place] [address] Dr. Brissa Ma MCV (RBC) [Entitic vol] 95.7 fL Critically high 80.0-94.0 [facility] Comment on above: Performed By: #### C BC #### [facility] [address] [place] [address] Dr. Brissa Ma MONO # 0.6 103/ul Normal 0.3-0.8 [facility] Comment on above: Performed By: #### C BC #### [facility] [address] [place] [address] Dr. Brissa Ma Monocytes/100 WBC (Bld) 8.4 % Normal 1.7-12.0 [facility] Comment on above: Performed By: #### C BC #### [facility] [address] [place] [address] Dr. Brissa Ma NEUT # 3.4 103/ul Normal 1.4-6.5 [facility] Comment on above: Performed By: #### C BC #### [facility] [address] [place] [address] Dr. Brissa Ma Neutrophils/100 WBC (Bld) 50.4 % Normal 43.0-75.0 [facility] Comment on above: Performed By: #### C BC #### [facility] [address] [place] [address] Dr. Brissa Ma Platelet mean volume (Bld) [Entitic vol] 9.2 fL Critically low 9.5-13.5 [facility] Comment on above: Performed By: #### C BC #### [facility] [address] [place] [address] Dr. Brissa Ma PLT 151 103/ul Normal 150-450 [facility] Comment on above: Performed By: #### C BC #### [facility] [address] [place] [address] Dr. Brissa Ma RBC 4.38 106/ul Critically low 4.70-6.10 [facility] Comment on above: Performed By: #### C BC #### [facility] [address] [place] [address] Dr. Brissa Ma WBC 6.8 103/ul Normal 4.0-11.0 [facility] Comment on above: Performed By: #### C BC #### [facility] [address] [place] [address] Dr. Brissa Ma CREATININEon 10-08-2021 Creatinine [Mass/Vol] 1.30 mg/dL Normal 0.70-1.30 [facility] Comment on above: Performed By: #### E LEC, BUN, BNP, LIVER, CREA #### [facility] [address] [address] [address] Brissa Ma EGFR-AF [place] >60 Normal >=60 [facility] Comment on above: Performed By: #### E LEC, BUN, BNP, LIVER, CREA #### [facility] [address] [address] [address] Brissa Ma EGFR-NON AF [place] 53 mL/min/1.73m2 Critically low >=60 [facility] Comment on above: Performed By: #### E LEC, BUN, BNP, LIVER, CREA #### [facility] [address] [place] [address] Dr. Brissa Ma ELECTROLYTESon 10-08-2021 Anion gap [Moles/Vol] 12.3 mmol/L Normal [facility] Comment on above: Performed By: #### E LEC, BUN, BNP, LIVER, CREA #### [facility] [address] [place] [address] Dr. Brissa Ma Chloride [Moles/Vol] 106 mmol/L Normal 98-107 [facility] Comment on above: Performed By: #### E LEC, BUN, BNP, LIVER, CREA #### [facility] [address] [place] [address] Dr. Brissa Ma CO2 [Moles/Vol] 24.3 mmol/L Normal 21.0-32.0 [facility] Comment on above: Performed By: #### E LEC, BUN, BNP, LIVER, CREA #### [facility] [address] [address] [address] Brissa Ma Potassium [Moles/Vol] 4.6 mmol/L Normal 3.5-5.1 [facility] Comment on above: Performed By: #### E LEC, BUN, BNP, LIVER, CREA #### [facility] [address] [place] [address] Dr. Brissa Ma Sodium [Moles/Vol] 138 mmol/L Normal 136-145 [facility] Comment on above: Performed By: #### E LEC, BUN, BNP, LIVER, CREA #### [facility] [address] [place] [address] Dr. Brissa Ma GLYCOHEMOGLOBIN A1Con 2021 ADA RECOMMENDATION SEE BELOW Normal [facility] Comment on above: Result Comment: ADA RECOMMENDED LIMIT 4.0 - 6.0 ADA THERAPEUTIC TARGET < 7.0 ACTION SUGGESTED > 7.0 Performed By: #### A 1C #### [facility] [address] [place] [address] Dr. Brissa Ma Glucose [Mass/Vol] 189 mg/dL Normal [facility] Comment on above: Performed By: #### A 1C #### [facility] [address] [place] [address] Dr. Brissa Ma HbA1c (Bld) [Mass fraction] 8.2 % Critically high 4.5-6.2 [facility] Comment on above: Performed By: #### A 1C #### [facility] [address] [place] [address] Dr. Brissa Ma LIPID PROFILEon 10-08-2021 CHOL-HDL RATIO NORM SEE BELOW Normal [facility] Comment on above: Result Comment: 3.3 - 4.4 LOW RISK 4.4 - 7.1 AVERAGE RISK 7.1 - 11.0 MODERATE RISK >11.0 HIGH RISK Performed By: #### C LEELEE, ELEC, LIPID, LIVER, BUN #### [facility] [address] [place] [address] Dr. Brissa Ma Cholesterol [Mass/Vol] 75 mg/dL Normal <=200 [facility] Comment on above: Performed By: #### C LEELEE, ELEC, LIPID, LIVER, BUN #### [facility] [address] [place] [address] Dr. Brissa Ma Cholesterol in HDL [Mass/Vol] 33 mg/dL Critically low 40-60 [facility] Comment on above: Performed By: #### C LEELEE, ELEC, LIPID, LIVER, BUN #### [facility] [address] [place] [address] Dr. Brissa Ma Cholesterol in LDL [Mass/Vol] 22.0 mg/dL Normal [facility] Comment on above: Performed By: #### C LEELEE, ELEC, LIPID, LIVER, BUN #### [facility] [address] [address] [address] Brissa Ma Cholesterol.total/Chol esterol in HDL [Mass ratio] 2.3 {ratio} Normal [facility] Comment on above: Performed By: #### C LEELEE, ELEC, LIPID, LIVER, BUN #### [facility] [address] [place] [address] Dr. Brissa Ma HDL NORMAL > or = 60 mg/dl - LO W CARDIOVASCULAR RISK <40 mg/dl - HIGH CARDIOVASCULAR RISK Normal [facility] Comment on above: Performed By: #### C LEELEE, ELEC, LIPID, LIVER, BUN #### [facility] [address] [place] [address] Dr. Brissa Ma LDL CALC NORMAL SEE BELOW Normal [facility] Comment on above: Result Comment: <100 mg/dl OPTIMAL 100 - 129 mg/dl NEAR OR ABOVE OPTIMAL 130 - 159 mg/dl BORDERLINE HIGH 160 - 189 mg/dl HIGH >190 mg/dl VERY HIGH Performed By: #### C LEELEE, ELEC, LIPID, LIVER, BUN #### [facility] [address] [place] [place] [address] Dr. Brissa Ma Triglyceride [Mass/Vol] 100 mg/dL Normal <=150 [facility] Comment on above: Performed By: #### C LEELEE, ELEC, LIPID, LIVER, BUN #### [facility] [address] [place] [address] Dr. Brissa Ma VLDL CALC 20.0 mg/dL Normal [facility] Comment on above: Performed By: #### C LEELEE, ELEC, LIPID, LIVER, BUN #### [facility] [address] [place] [address] Dr. Brissa Ma LIVER PROFILEon 10-08-2021 Albumin [Mass/Vol] 3.4 g/dL Normal 3.4-5.0 [facility] Comment on above: Performed By: #### E LEC, BUN, BNP, LIVER, CREA #### [facility] [address] [place] [address] Dr. Brissa Ma Albumin/Globulin [Mass ratio] 1.0 {ratio} Normal [facility] Comment on above: Performed By: #### E LEC, BUN, BNP, LIVER, CREA #### [facility] [address] [place] [address] Dr. Brissa Ma ALP [Catalytic activity/Vol] 96 U/L Normal 46-116 [facility] Comment on above: Performed By: #### E LEC, BUN, BNP, LIVER, CREA #### [facility] [address] [place] [address] Dr. Brissa Ma ALT [Catalytic activity/Vol] 24 U/L Normal 16-63 [facility] Comment on above: Performed By: #### E LEC, BUN, BNP, LIVER, CREA #### [facility] [address] [place] [address] Dr. Brissa Ma AST [Catalytic activity/Vol] 14 U/L Critically low 15-37 [facility] Comment on above: Performed By: #### E LEC, BUN, BNP, LIVER, CREA #### [facility] [address] [place] [address] Dr. Brissa Ma BILI, CONJUGATED 0.1 mg/dL Normal 0.0-0.2 [facility] Comment on above: Performed By: #### E LEC, BUN, BNP, LIVER, CREA #### [facility] [address] [place] [address] Dr. Brissa Ma Bilirubin [Mass/Vol] 0.4 mg/dL Normal 0.2-1.0 [facility] Comment on above: Performed By: #### E LEC, BUN, BNP, LIVER, CREA #### [facility] [address] [place] [address] Dr. Brissa Ma Globulin (S) [Mass/Vol] 3.5 g/dL Normal [facility] Comment on above: Performed By: #### E LEC, BUN, BNP, LIVER, CREA #### [facility] [address] [place] [address] Dr. Brissa Ma Protein [Mass/Vol] 6.9 g/dL Normal 6.4-8.2 [facility] Comment on above: Performed By: #### E LEC, BUN, BNP, LIVER, CREA #### [facility] [address] [address] [address] Brissa Ma Vital Signs Date Time Vital Sign Value Performing Clinician Facility 03-09-2024 15:16-0500 Body height 170.2 cm Stephanie Steward MD Work Phone: [facility] 03-09-2024 15:16-0500 Body mass index (BMI) [Ratio] 28.19 kg/m2 Stephanie Steward MD Work Phone: [facility] 03-09-2024 15:16-0500 Body weight 81.65 kg Stephanie Steward MD Work Phone: [facility] 03-09-2024 15:16-0500 Diastolic blood pressure 70 mm[Hg] Stephanie Steward MD Work Phone: [facility] 03-09-2024 15:16-0500 Heart rate 68 /min Stephanie Steward MD Work Phone: [facility] 03-09-2024 15:16-0500 Systolic blood pressure 120 mm[Hg] Stephanie Steward MD Work Phone: [facility] 01-18-2024 09:01-0500 Body height 170.2 cm Veda Petznick DO Work Phone: [facility] 01-18-2024 09:01-0500 Body mass index (BMI) [Ratio] 28.19 kg/m2 Veda Petznick DO Work Phone: [facility] 01-18-2024 09:01-0500 Body temperature 98.01 [degF] Veda Petznick DO Work Phone: [facility] 01-18-2024 09:01-0500 Body weight 81.65 kg Veda Petznick DO Work Phone: [facility] 01-18-2024 09:01-0500 Diastolic blood pressure 66 mm[Hg] Veda Petznick DO Work Phone: [facility] 01-18-2024 09:01-0500 Heart rate 92 /min Veda Petznick DO Work Phone: [facility] 01-18-2024 09:01-0500 SaO2% (BldA) [Mass fraction] 94 % Veda Petznick DO Work Phone: [facility] 01-18-2024 09:01-0500 Systolic blood pressure 110 mm[Hg] Veda Petznick DO Work Phone: [facility] 12-10-2023 13:27-0400 Body height 170.2 cm Kennedy Camara DPM Work Phone: [facility] 12-10-2023 13:27-0400 Body mass index (BMI) [Ratio] 28.04 kg/m2 Kennedy Camara DPM Work Phone: [facility] 12-10-2023 13:27-0400 Body weight 81.19 kg Kennedy Camara DPM Work Phone: [facility] 12-10-2023 13:27-0400 Respiratory rate 17 /min Kennedy Camara DPM Work Phone: [facility] 12-03-2023 13:58-0400 Body height 170.2 cm Veda Petznick DO Work Phone: [facility] 12-03-2023 13:58-0400 Body mass index (BMI) [Ratio] 28.16 kg/m2 Veda Petznick DO Work Phone: [facility] 12-03-2023 13:58-0400 Body temperature 96.4 [degF] Veda Petznick DO Work Phone: [facility] 12-03-2023 13:58-0400 Body weight 81.56 kg Veda Petznick DO Work Phone: [facility] 12-03-2023 13:58-0400 Diastolic blood pressure 68 mm[Hg] Veda Petznick DO Work Phone: [facility] 12-03-2023 13:58-0400 Heart rate 74 /min Veda Petznick DO Work Phone: [facility] 12-03-2023 13:58-0400 SaO2% (BldA) [Mass fraction] 98 % Veda Petznick DO Work Phone: [facility] 12-03-2023 13:58-0400 Systolic blood pressure 102 mm[Hg] Veda Petznick DO Work Phone: [facility] 07-24-2023 13:40-0400 Body height 167.6 cm Henrry Issa MD Work Phone: [facility] 07-24-2023 13:40-0400 Body mass index (BMI) [Ratio] 30.02 kg/m2 Henrry Issa MD Work Phone: [facility] 07-24-2023 13:40-0400 Body weight 84.37 kg Henrry Issa MD Work Phone: [facility] 07-24-2023 13:40-0400 Diastolic blood pressure 74 mm[Hg] Henrry Issa MD Work Phone: [facility] 07-24-2023 13:40-0400 Heart rate 82 /min Henrry Issa MD Work Phone: [facility] 07-24-2023 13:40-0400 Systolic blood pressure 134 mm[Hg] Henrry Issa MD Work Phone: [facility] 04-08-2023 13:24-0500 Body height 170.2 cm Trip BROOKS Work Phone: [facility] 04-08-2023 13:24-0500 Body mass index (BMI) [Ratio] 28.19 kg/m2 Trip BROOKS Work Phone: [facility] 04-08-2023 13:24-0500 Body weight 81.65 kg Trip BROOKS Work Phone: [facility] 01-14-2023 14:28-0500 Body height 170.2 cm Henrry Issa MD Work Phone: [facility] 01-14-2023 14:28-0500 Body mass index (BMI) [Ratio] 30.07 kg/m2 Henrry Issa MD Work Phone: [facility] 01-14-2023 14:28-050 Body weight 87.09 kg Henrry Issa MD Work Phone: [facility] 01-14-2023 14:28-0500 Diastolic blood pressure 60 mm[Hg] Henrry Issa MD Work Phone: [facility] 01-14-2023 14:28-0500 Heart rate 92 /min Henrry Issa MD Work Phone: [facility] 01-14-2023 14:28-0500 Systolic blood pressure 106 mm[Hg] Henrry Issa MD Work Phone: [facility] 01-02-2023 11:43-0400 Body mass index (BMI) [Ratio] 30.4 kg/m2 JR Hugo Moser Work Phone: [facility] 12-31-2022 13:51-0400 Diastolic blood pressure 70 mm[Hg] JR Hugo Moser Work Phone: [facility] 12-31-2022 13:51-0400 Heart rate 83 /min JR Hugo Moser Work Phone: [facility] 12-31-2022 13:51-0400 Respiratory rate 14 /min JR Hugo Moser Work Phone: [facility] 12-31-2022 13:51-0400 SaO2% (BldA) [Mass fraction] 98 % JR Hugo Moser Work Phone: [facility] 12-31-2022 13:51-0400 Systolic blood pressure 112 mm[Hg] JR Hugo Moser Work Phone: [facility] 12-31-2022 12:00-0400 Body temperature 97.8 [degF] JR Hugo Moser Work Phone: [facility] 12-31-2022 06:00-0400 Body weight 86.5 kg JR Hugo Moser Work Phone: [facility] 12-30-2022 15:37-0400 Inhaled oxygen flow rate 6 L/min JR Hugo Moser Work Phone: [facility] 12-30-2022 15:12-0400 Body height 170.18 cm JR Hugo Moser Work Phone: [facility] 12-30-2022 15:12-0400 Body mass index (BMI) [Ratio] 30.4 kg/m2 JR Hugo Moser Work Phone: [facility] Encounters Encounter Date Encounter Type Care Provider Facility Start: 04-15-2024 End: 04-15-2024 Telephone encounter Veda Rome DO Work Phone: [facility] 230 Comment on above: Appointment Confirma tion Start: 04-15-2024 End: 04-15-2024 Patient encounter procedure Hugo Moser JR Work Phone: [facility] Start: 04-15-2024 End: 04-15-2024 ambulatory Hugo Josy Moser JR Work Phone: [facility] Work Phone: Start: 04-15-2024 Non-patient / Non-visit Melvin Moser JR Work Phone: [facility] Start: 03-09-2024 End: 03-09-2024 Office outpatient visit 25 minutes Stephanie Steward MD Work Phone: [facility] Comment on above: Pacemaker (Primary D x); AV block, Mobitz II; Mixed hyperlipidemia; Paroxysmal atrial fibrillation (Multi); Mild tricuspid regurgitation; Diabetes mellitus type II, non insulin dependent (Multi); BMI 28.0-28.9,adult; Never smoked tobacco; Overweight Start: 03-09-2024 End: 03-09-2024 ambulatory [facility] Start: 02-17-2024 End: 02-17-2024 Bamboo flowsheet Amparo Gini Griffin Stepjere DO Work Phone: [facility] Start: 02-17-2024 End: 02-17-2024 Bamboo flowsheet Jr. Gini Griffin Stepanic DO Work Phone: [facility] Start: 02-17-2024 End: 02-17-2024 Office outpatient visit 15 minutes Gini Elias Stepjere DO Work Phone: [facility] Comment on above: Rotator cuff arthrop athy, right (Primary Dx); Shoulder arthritis Start: 02-17-2024 End: 02-17-2024 ambulatory Amparo GINI Elias CÁRDENAS Not Available Start: 01-18-2024 End: 01-18-2024 Bamboo flowsheet Veda Rome DO Work Phone: [facility] Start: 01-18-2024 End: 01-18-2024 Bamboo flowsheet Veda Salazarick DO Work Phone: [facility] Start: 01-18-2024 End: 01-18-2024 Office outpatient visit 25 minutes Veda Rome DO Work Phone: [facility] Comment on above: 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); Type 2 diabetes mellitus with hyperglycemia, without long-term current use of insulin ([facility]/HCC) Start: 01-18-2024 End: 01-18-2024 ambulatory VEDA ROME Not Available Start: 01-15-2024 End: 01-15-2024 ambulatory [facility] Facility:[facility] Start: 01-15-2024 Non-patient / Non-visit [facility] Start: 01-14-2024 End: 01-14-2024 Telephone encounter Veda Salazarick DO Work Phone: [facility] Start: 12-10-2023 End: 12-10-2023 Bamboo flowsheet Kennedy Camara DPM Work Phone: [facility] Start: 12-10-2023 End: 12-10-2023 Bamboo flowsheet Kennedy Camara DPM Work Phone: [facility] Start: 12-10-2023 End: 12-10-2023 Patient encounter procedure Kennedy Camara DPM Work Phone: [facility] Comment on above: Type 2 diabetes enriqueta itus without complication, unspecified whether correction insulin use (CMS/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) (Primary Dx); Type 2 diabetes mellitus with hyperglycemia, without long-term current use of insulin (CMS/[facility]) Start: 12-03-2023 End: 12-03-2023 ambulatory VEDA ROME Not Available Start: 12-02-2023 End: 12-02-2023 Telephone encounter Veda Rome DO Work Phone: [facility] Start: 12-01-2023 Non-patient / Non-visit [facility] Start: 10-16-2023 End: 10-16-2023 Patient encounter procedure JR Hugo Moser Work Phone: [facility] Start: 10-16-2023 End: 10-16-2023 ambulatory JR Hugo Moser Work Phone: [facility] Work Phone: Start: 08-17-2023 End: 08-17-2023 ambulatory GINI RAMIRES Not Available Start: 07-24-2023 End: 07-24-2023 Office outpatient visit 25 minutes Henrry Issa MD Work Phone: [facility] Comment on above: Non-ischemic cardiom yopathy (Multi) (Primary Dx); AV block, Mobitz II; Pacemaker; Mixed hyperlipidemia; BMI 30.0-30.9,adult Start: 07-24-2023 End: 07-24-2023 ambulatory HENRRY [facility] Start: 07-15-2023 End: 07-15-2023 [facility] Start: 05-11-2023 End: 05-11-2023 ambulatory GINI RAMIRES Not Available Start: 04-15-2023 End: 04-15-2023 ambulatory JR Hugo Moser Work Phone: [facility] Work Phone: Start: 04-15-2023 End: 04-15-2023 Patient encounter procedure JR Hugo Moser Work Phone: [facility] Start: 04-08-2023 End: 04-08-2023 Office outpatient new 45 minutes Trip BROOKS Work Phone: [facility] Comment on above: Acute pain of right shoulder; Rotator cuff arthropathy, right; Arthritis of right acromioclavicular joint Start: 04-08-2023 End: 04-08-2023 ambulatory TRIP BROWN Not Available Start: 01-14-2023 End: 01-14-2023 Office outpatient visit 25 minutes Henrry Issa MD Work Phone: [facility] Comment on above: AV block, Mobitz II; Pacemaker; Obesity (BMI 30.0-34.9) Start: 01-08-2023 End: 01-08-2023 ambulatory JR Hugo Moser Work Phone: [facility] Work Phone: Start: 01-08-2023 End: 01-08-2023 Patient encounter procedure Hugo Moser Work Phone: [facility] [place] Work Phone: Start: 12-28-2022 End: 12-31-2022 Evaluation and management of inpatient JR Arias Shanti Work Phone: [facility] [place] [facility] Work Phone: Start: 05-19-2022 End: [...] Start: 04-15-2023 Plain chest X-ray JR Haven yeimymolina Moser Work Phone: Start: 04-08-2023 End: 04-08-2023 Arthrocentesis aspir&/inj major jt/bursa w/o us Trip BROOKS Work Phone: Start: 01-08-2023 Plain chest X-ray JR Haven Moser Work Phone: Start: 12-31-2022 Plain chest X-ray JR Haven yeimy Shanti Work Phone: Start: 12-30-2022 Plain chest X-ray JR Haven yeimy Shanti Work Phone: Start: 12-30-2022 Implantation of card iac pacemaker JR Hugo Moser Work Phone: Plan of Treatment Date Care Activity Detail Author Start: 11-09-2024 End: 11-09-2024 Patient encounter procedure 11/09/2024 11:00 AM EDT Office Visit [facility] [address] [place] [address] Stephanie Steward MD [address] [facility] [address] [place] [address] [facility] Start: 04-18-2024 End: 04-18-2024 Patient encounter procedure 04/18/2024 1:00 PM EST Office Visit [facility] [address] [place] [phone] Veda Rome, DO [address] [place] [address] [facility] Start: 03-09-2024 End: 03-09-2024 Patient encounter procedure 03/09/2024 10:50 AM EST Office Visit [facility] [address] [facility] [address] [place] [address] Stephanie Steward MD [address] [facility] [address] [place] [address] [facility] Start: 02-17-2024 End: 02-17-2024 Patient encounter procedure [facility] Comment on above: Arrived Start: 01-15-2024 End: 01-15-2024 Patient encounter procedure 01/15/2024 2:00 PM EST Office Visit [facility] [address] [place] [phone] Veda Rome, DO [address] [place] [address] [facility] Start: 12-10-2023 End: 12-10-2023 Patient encounter procedure [facility] Comment on above: Type 2 diabetes enriqueta itus without complication, unspecified whether correction insulin use ([facility]) (Primary Dx); Pain due to onychomycosis of toenails of both feet Start: 12-03-2023 End: 12-03-2023 Patient encounter procedure 12/03/2023 2:00 PM EDT Office Visit [facility] [address] [place] [phone] Veda Rome DO [address] [place] [address] [facility] Start: 11-01-2023 COVID-19 Vaccine () COVID-19 Vaccine () [facility] Start: 11-01-2023 Influenza vaccination [facility] Start: 07-24-2023 End: 07-24-2023 Patient encounter procedure 07/24/2023 1:40 PM EDT Office Visit [facility] [address] [facility] [address] [place] [address] Henrry Issa MD [address] [facility] [address] [place] [address] [facility] Start: 05-11-2023 End: 05-11-2023 Patient encounter procedure 05/11/2023 10:45 AM EDT Office Visit [facility] [address] [place] [phone] Jr. Gini Cárdenas, DO [address] [place] [address] [facility] Start: 12-31-2022 [facility] Start: 12-30-2022 [facility] Start: 12-28-2022 Insertion of Pacemak er Lead into Right Atrium, Percutaneous Approach Insertion of Pacemaker Lead into Right Atrium, Percutaneous Approach [facility] Start: 12-28-2022 Insertion of Pacemak er Lead into Right Ventricle, Percutaneous Approach Insertion of Pacemaker Lead into Right Ventricle, Percutaneous Approach [facility] Start: 12-28-2022 Insertion of Pacemak er, Dual Chamber into Chest Subcutaneous Tissue and Fascia, Open Approach Insertion of Pacemaker, Dual Chamber into Chest Subcutaneous Tissue and Fascia, Open Approach [facility] Start: 12-28-2022 Hospital admission [facility] Start: 12-28-2022 Referral to ergonomics consultant [facility] Start: 10-31-2022 COVID-19 Vaccine ( season) COVID-19 Vaccine ( season) [facility] Start: 10-31-2022 Influenza vaccination Influenza Vacc ine (#1) [facility] Start: 02-05-2022 COVID-19 Vaccine (4 - Moderna series) COVID-19 Vaccine (4 - Moderna series) [facility] Start: 05-18-2019 Pneumococcal vaccination Pneum ococcal Vaccine (2 of 2 - PCV) [facility] Start: 05-18-2019 Pneumococcal Vaccine : 65+ Years (2 - PCV) Pneumococcal Vaccine: 65+ Years (2 - PCV) [facility] Start: 05-18-2019 Pneumococcal Vaccine : 65+ Years (2 of 2 - PCV) Pneumococcal Vaccine: 65+ Years (2 of 2 - PCV) [facility] Start: 08-18-2014 RSV High Risk: (Elde rly (60+) or Population) (1 - 1-dose 75+ series) RSV High Risk: (Elderly (60+) or Population) (1 - 1-dose 75+ series) [facility] Start: 1999 RSV patient s and/or patients aged 60+ years (1 - 1-dose 60+ series) RSV patients and/or patients aged 60+ years (1 - 1-dose 60+ series) [facility] Start: 08-18-1989 Zoster Vaccines (1 of 2) Zoste r Vaccines (1 of 2) [facility] Start: 08-18-1961 DTaP/Tdap/Td Vaccine s (1 - Tdap) DTaP/Tdap/Td Vaccines (1 - Tdap) [facility] Start: 08-18-1958 Urine screening for protein Diabetes: Urine Protein Screening [facility] Start: 08-18-1949 Diabetic foot examination Diabetes: Foot Exam [facility] Start: 08-18-1949 Glaucoma screening Diabetes: R etinopathy Screening [facility] Start: 1939 Hemoglobin A1c measurement Diabetes: Hemoglobin A1C [facility] Start: 1939 Lipid panel Lipid Panel [facility] Start: 1939 Medicare Annual Well ness Visit Medicare Annual Wellness Visit (AWV) [facility] Start: 1939 Urine screening for protein Diabetes: Urine Protein Screening [facility] Patient Education Clindamycin (Systemic) [facility] Work Phone: Patient referral [facility] Work Phone: XR Shoulder - right 2 Views XR shoulder 2+ views right Imaging Routine Acute pain of right shoulder 04/08/2023 1:21 PM EST [facility] Work Phone: Immunizations Immunization Date Immunization Notes Care Provider Fa [facility] 12-11-2021 Moderna COVID-19 vaccine, bivalent, blue cap/goff label *Check age/dose* Henrry Issa MD Work Phone: [facility] 01-31-2021 influenza, injectabl e, quadrivalent, preservative free Henrry Issa MD Work Phone: [facility] Work Phone: 01-31-2021 influenza virus vacc ine, unspecified formulation Henrry Issa MD Work Phone: [facility] Work Phone: 05-17-2018 influenza, injectabl e, quadrivalent, preservative free Henrry Issa MD Work Phone: [facility] Work Phone: 05-17-2018 pneumococcal polysaccharide vaccine, 23 valent Henrry Issa MD Work Phone: [facility] Work Phone: Payers Date Payer Category Payer Self-pay 2023 Private Health Insurance OSVALDO Young mber [id number] 2022 Medicare supplementa l policy (as second payer) [employer] [id number] 2022 Unknown [id number]. [id number] 2004 Medicare [id number]. [id number] 1959 Medicare [id number] 1959 Unknown [id number] 1939 Unknown [id number] [id number]. 2.593 1939 Unknown [id number] 2.16.840.1.111043.3.579. 2.593 1939 Unknown [id number] 2.16.840.1.723376.3.579. 2.593 1939 Unknown [id number] 2.16.840.1.197221.3.579. 2.1259 1939 Unknown [id number] 2.16.840.1.368845.3.579. 2.1259 1939 Unknown [id number] 2.16.840.1.524132.3.579. 2.1259 1939 Unknown [id number] 2.16.840.1.186476.3.579. 2.1259 1939 Unknown [id number] 2.16.840.1.739845.3.579. 2.125 1939 Unknown [id number] 2.16.840.1.131121.3.579. 2.125 1939 Unknown [id number] 2.16.840.1.703496.3.579. 2.1258 1939 Unknown [id number] 2.16.840.1.342485.3.579. 2.1258 1939 Unknown [id number] 2.16.840.1.156754.3.579. 2.1244 1939 Unknown [id number] 2.16.840.1.483415.3.579. 2.1244 Unknown [id number] 2.16.840.1.299661.3.579. 2.531 Unknown [id number] 2.16.840.1.697469.3.579. 2.531 Unknown [id number] 2.16.840.1.850580.3.579. 2.531 Unknown [id number] [id number]. 2.531 Social History Date Type Detail Facility Start: 12-30-2022 End: 12-30-2022 Tobacco smoking status NHIS Never smoked tobacco (finding) [facility] Start: 1940 Sex Assigned At Male F [facility] Start: 01-14-2023 End: 04-08-2023 Tobacco use and exposure Smokeless tobacco non-user [facility] Work Phone: Start: 01-14-2023 End: 03-09-2024 Alcohol intake Lifetime non-drinker (finding) [facility] Work Phone: Start: 01-14-2023 End: 01-18-2024 History of Social function [facility] Work Phone: Start: 01-14-2023 End: 01-18-2024 Tobacco use panel [facility] Work Phone: Start: 1940 Sex Assigned At Not on file [facility] Work Phone: Start: 01-04-2023 End: 03-09-2024 Exposure to SARS-CoV-2 (event) Not sure [facility] Start: 04-08-2023 End: 12-10-2023 Alcohol intake Current drinker of alcohol (finding) [facility] Start: 01-19-2024 End: 04-16-2024 Sex Male (finding) [facility] Start: 01-18-2024 End: 02-17-2024 Alcoholic beverage intake Ex-drinker (finding) [facility] How often to you hav e a drink containing alcohol? Never [facility] How many standard drinks containing alcohol do you have on a typical day? Patient does not drink [facility] Medical Equipment Procedure Code Equipment Code Equipment Origin al Text Equipment Identifier Dates Insertion, pacemaker Endocardial pacing lead [id number] FDA Start: 12-30-2022 Insertion, pacemaker Endocardial pacing lead [id number] FDA Start: 12-30-2022 Insertion, pacemaker Dual-chamber implantable pacemaker, rate-responsive [id number] FDA Start: 12-30-2022 Goals Date Patient Goal Desired Activity /State Functional Status Date Assessment Result Facility 12-31-2022 Functional status Patient at [facility] Work Phone: Mental Status Date Assessment Result Facility 12-31-2022 Cognitive function Cognitive Sta tus Patient at [facility] Work Phone: Clinical Notes 12-28-2022 to 04-15-2024 Telephone Encounter - Elba Giulia - 04/15/2024 1:06 PM ESTTelephone Encounter - Elba Giulia - 04/15/2024 1:06 PM Smiley Steward MD - 03/09/2024 3:20 PM ESTPatient Instructions Note Date & Type Note Facility 04-15-2024 Telephone encounter Note LVM appointment reminder [facility] 04-15-2024 Miscellaneous Notes LVM appointment reminder documented in this encounter [facility] 03-09-2024 History of Present illness Narrative Karen [...] have been followed by his PCP. Assessment/recommendations: [id number] AV block status post permanent pacemaker 2022 [...] discussion and plan. documented in this encounter [facility] Work Phone: 03-09-2024 Instructions Ashtyn Rendon RN [...] up per routine documented in this encounter [facility] Work Phone: 02-17-2024 History of Present illness [...] requiring urgent evaluation. documented in this encounter [facility] 01-18-2024 History of Present illness Narrative Associated Problem(s): Type 2 diabetes mellitus with hyperglycemia, without long-term current use of insulin ([facility]) During the appointment today all pertinent [...] initial diagnosis of diabetes was made around 2018 Previously tried medications include: Jardiance Complications include: [...] hyperglycemia, without long-term current use of insulin ([facility]) During the appointment today all pertinent [...] disease, without long-term current use of insulin ([facility]) ([facility]) Relevant Medications insulin glargine (Lantus SoloStar) 100 [...] the patient today. documented in this encounter [facility] 01-14-2024 Telephone encounter Note noted [facility] 01-14-2024 Miscellaneous Notes noted P/c to remind pt of appointment. Pt had to reschedule because his has testing all day tomorrow. Rescheduled for Thursday at 9:15. He voiced understanding documented in this encounter [facility] 01-14-2024 Telephone encounter Note P/c to remind pt of appointment. Pt had to reschedule because his has testing all day tomorrow. Rescheduled for Thursday at 9:15. He voiced understanding [facility] 12-10-2023 History of Present illness Narrative Patient: [...] (CMS/HCC) Hx of deep venous thrombosis Hyperlipemia (CMS/HCC) Hypertension ([facility]) Medications: Current Outpatient Medications: empagliflozin (Jardiance) [...] Negative palpable pedal pulses bilaterally NEURO: 5.07 [place] Claudia monofilament test intact to digits and forefoot bilaterally 125Hz tuning fork diminished to 1st MPJ bilaterally ORTHO: Positive pain on palpation to nails 1 through 10 ASSESSMENT 1. Type 2 diabetes mellitus without complication, unspecified whether ssrs developer insulin use ([facility]) 2. Pain due to onychomycosis of [...] Kennedy Camara DPM documented in this encounter [facility] 12-03-2023 History of Present illness Narrative Associated Problem(s): Type 2 diabetes mellitus with hyperglycemia, without long-term current use of insulin ([facility]) During the appointment today all pertinent [...] occasion (cinnamon toast crunch- low sugar) Lunch: Rodessa (ham), fruit (peaches, pears, melon) Dinner: Varies- [...] hyperglycemia, without long-term current use of insulin ([facility]) HTN (hypertension) ([facility]) Mixed hyperlipidemia ([facility]) Mobitz type II atrioventricular block Localized, primary osteoarthritis of hand DVT (deep venous thrombosis) ([facility]) Non-ischemic cardiomyopathy ([facility]) Pacemaker Type 2 diabetes mell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, without long-term current use of insulin ([facility]) ([facility]) Social History Tobacco Use Smoking status: Never [...] hyperglycemia, without long-term current use of insulin ([facility]) During the appointment today all pertinent [...] without long-term current use of insulin (HCC) ([facility]) - Primary Relevant Medications empagliflozin (Jardiance) [...] the patient today. documented in this encounter [facility] 12-02-2023 Telephone encounter Note Pt's answered the phone. Reminded her of her 's appointment tomorrow with Dr. Mccollum. voiced understanding [facility] 12-02-2023 Miscellaneous Notes Pt's answered the phone. Reminded her of her 's appointment tomorrow with Dr. Mccollum. voiced understanding documented in this encounter [facility] 07-24-2023 History of Present illness Narrative Subjective [...] By signing my name below, IKaylynn LPN Scribe attest that this documentation has been [...] plan. documented in this encounter [facility] Work Phone: 07-24-2023 Instructions Sal Henson MA [...] of your visit. documented in this encounter [facility] Work Phone: 04-08-2023 History of Present illness [...] with 2ml of 2 % lidocaine (Code 80636 RT) Procedure, treatment alternatives, risks and benefits [...] evaluation. TODD Driver documented in this encounter [facility] 01-14-2023 History of Present illness Narrative Karen [...] Obesity (BMI 30.0-34.9) documented in this encounter [facility] Work Phone: 01-14-2023 Instructions Lupe Burns LPN [...] up per routine documented in this encounter [facility] Work Phone: 12-31-2022 Progress note Note Date/Time December 31, 2022 10:25am [facility] [address] [place] [address] Cardiology Progress Note Signed Patient: Emmanuel Jiménez MR#: [id number] : 1940 Acct:[id number] Age/Sex: 82 / M Adm Date: 3 Loc: 3T Room: [address] [place] [address] Type: ADM IN Attending Dr: Katie Osborne [...] % (Auto) 61.2 Lymph % (Auto) 27.7 [place] % (Auto) 8.9 Eos % (Auto) 1.6 Baso % (Auto) 0.6 Nucleat RBC Rel Count 0.0 Neut # (Auto) 4.1 Lymph # (Auto) 1.9 [place] # (Auto) 0.6 Eos # (Auto) 0.1 Baso # (Auto) 0.0 PHA Creatinine Clear Sodium Potassium Chloride Carbon Dioxide Anion Gap BUN Creatinine Est GFR (CKD-EPI) Glucose POC Glucose 206 183 Calcium Magnesium 12/31/22 06:36 Corrected WBC Uncorrected WBC Count RBC Hgb Hct MCV MCH MCHC RDW Plt Count MPV Neut % (Auto) Lymph % (Auto) [place] % (Auto) Eos % (Auto) Baso % (Auto) Nucleat RBC Rel Count Neut # (Auto) Lymph # (Auto) [place] # (Auto) Eos # (Auto) Baso # [...] clinic as scheduled. Follow-up with his primary ergonomics consultant Dr. Hugo Moser henceforth Documented By: Henrry Issa MD 1023 Signed By: <Electronically signed by MD Henrry Issa> 12/31/22 1033 [facility] Work Phone: 1(735) 332-360210-31-2023 Progress note Author Katie Osborne [facility] December 30, 2022 2:12pm Note Date/Time December 30, 2022 2 :12pm [facility] [address] [place] [address] Hospitalist Progress Note Signed Patient: Emmanuel Jiménez MR#: [id number] : 1940 Acct:[id number] Age/Sex: 82 / M Adm Date: 10/29/2 3 Loc: 3T Room: 1O5807-0 Type: ADM IN Attending Dr: Katie Osborne MD Copies to: ~ Date of Service: 12/30/2022 Subjective Subjective Narrative: Patient was seen and evaluated at bedside this morning. 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 Patient's baseline is unknown, at [place] his creatinine is 1.6, today here it is 1.4 ? Patient did receive atropine at [place], his heart rate has been improved while [...] <Electronically signed by Katie Osborne MD> 12/30/[address] [place] [address] Ctr Work Phone: 1(779) 705-491010-30-2023 Progress note Author Henrry Issa [facility] December 29, 2022 2:16pm Note Date/Time December 29, 2022 2 :16pm [facility] [address] [place] [address] Cardiology Progress Note Signed Patient: Emmanuel Jiménez MR#: [id number] : 1940 Acct:[id number] Age/Sex: 82 / M Adm Date: 3 Loc: Room: [address] [place] [address] Type: ADM IN Attending Dr: Katie Osbonre MD Copies to: ~ Date of Service: [...] block. Intermittently he is conducting in a [id number]-[id number]. No observed manifestations of complete heart block. [...] % (Auto) 48.1 Lymph % (Auto) 41.3 [place] % (Auto) 8.4 Eos % (Auto) 1.4 Baso % (Auto) 0.8 Nucleat RBC Rel Count 0.1 Neut # (Auto) 3.6 Lymph # (Auto) 3.1 [place] # (Auto) 0.6 Eos # (Auto) 0.1 [...] MPV Neut % (Auto) Lymph % (Auto) [place] % (Auto) Eos % (Auto) Baso % (Auto) Nucleat RBC Rel Count Neut # (Auto) Lymph # (Auto) [place] # (Auto) Eos # (Auto) Baso # [...] By: <Electronically signed by MD Henrry Issa> 12/29/221415 [facility] Work Phone: 1(200) 987-380810-30-2023 Progress note Author Katie Osborne [facility] December 29, 2022 1:57pm Note Date/Time December 29, 2022 1 :57pm [facility] [address] [place] [address] Hospitalist Progress Note Signed Patient: Emmanuel Jiménez MR#: [id number] : 1940 Acct:[id number] Age/Sex: 82 / M Adm Date: 3 Loc: Room: [address] [place] [address] Type: ADM IN Attending Dr: Katie Osborne MD Copies to: ~ Date of Service: 12/29/2022 Subjective Subjective Narrative: Patient was seen and evaluated at bedside this morning. 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 Patient's baseline is unknown, at [place] his creatinine is 1.6, today here it is 1.4 ? Patient did receive atropine at [place], his heart rate has been improved while [...] <Electronically signed by Katie Osborne MD> 12/29/[address] [place] [address] Ctr Work Phone: 1(653) 678-929110-29-2023 Consult note Author Haylee Benedict [facility] December 28, 2022 7:25pm Note Date/Time December 28, 2022 7 :22pm [facility] [address] [place] [address] Cardiology Consult Note Signed Patient: Emmanuel Jiménez MR#: [id number] : 1940 Acct:[id number] Age/Sex: 82 / M Adm Date: 3 Loc: Room: [address] [place] [address] Type: ADM IN Attending Dr: Jarred Cline [...] negative unless noted below or in HPI [facility] Social History Smoking Status: Never smoker Meds [...] <Electronically signed by Haylee Benedict MD> 12/28/221924 [facility] Work Phone: 1(767) 532-224810-29-2023 History and physical note Author Jarred Cline [facility] December 28, 2022 1:36pm Note Date/Time December 28, 2022 1 :21pm [facility] [address] [place] [address] Hospitalist H&P Signed Patient: Emmanuel Jiménez MR#: [id number] : 1940 Acct:[id number] Age/Sex: 82 / M Adm Date: 3 Loc: Room: [address] [place] [address] Type: ADM IN Attending Dr: Jarred Cline DO Copies to: DO Jarred Childers Jr, ~ HPI DATE OF EXAMINATION: 12/28/22 CHIEF COMPLAINT: low heart rate HISTORY OF PRESENT ILLNESS: Mr Jiménez is an 82-year-old male with past medical history of diabetes and hypertension who presents hospital today with chief complaint of low heart rate. He was transferred here from [facility], he has been feeling exertional dyspnea for [...] to the emergency room. He went to [facility] ER was then transferred back here due to there being no cardiology services at [facility]. Patient denies any cough with his shortness [...] negative unless noted below or in HPI [facility] Social History Smoking Status: Never smoker [...] Plan: ? Patient's baseline is unknown, at [facility] his creatinine is 1.6, today here it is 1.4 ? Likely secondary to decreased perfusion from bradycardia ? Patient did receive atropine at [place], his heart rate has been improved while [...] <Electronically signed by Jarred Cline DO> 12/28/22 3078 [facility] Work Phone: Discharge summary Author Katie Osborne [facility] December 31, 2022 12:42pm Note Date/Time December 31, 2022 1 2:43pm [facility] [address] [place] [address] Discharge Summary Signed Patient: Emmanuel Jiménez MR#: [id number] : 1940 Acct:[id number] Age/Sex: 82 / M Adm Date: 3 Loc: Room: [address] [place] [address]: Katie Osborne MD Copies to: [...] heart rate. He was transferred here from [facility], he has been feeling exertional dyspnea for [...] % (Auto) 61.2, Lymph % (Auto) 27.7, [place] % (Auto) 8.9, Eos % (Auto) 1.6, Baso % (Auto) 0.6, Nucleat RBC Rel Count 0.0, Neut # (Auto) 4.1, Lymph # (Auto) 1.9, [place] # (Auto) 0.6, Eos # (Auto) 0.1, [...] with nurse for incision check in the [facility] Office on - we will call you. 2. Chest x-ray to be done the same day as your device check at [facility] 04/15/2023. 3. Pacemaker/ICD clinic appointment at [facility] on 04/15/2023 at 11:00am . 4. Office [...] ONCE DAILY Follow Up: Hugo Moser JR, [Primary Care Provider] - 01/07/23 3:15 pm (You have been scheduled for a follow up appointment for the following date and time, please call to reschedule if needed.) Documented By: Katie Osborne MD 12/31/22 12 37 Signed By: <Electronically signed by Katie Osborne MD> 12/31/22 1242 [facility] Work Phone: Evaluation note* Diagnosis Onset Date Resolution Status ZAC (acute kidney injury) ac [place] Diabetes mellitus acute HTN (hypertension) acute Mobitz type 2 second degree AV block acute [facility] Work Phone: Evaluation note* Diagnosis AV block, Mobitz II Mobitz (type) II atrioventricular block Pacemaker Cardiac pacemaker in situ Obesity (BMI 30.0-34.9) documented in this encounter [facility] Work Phone: Evaluation note* Diagnosis Acute pain of right shoulder Rotator cuff arthropathy, right Arthritis of right acromioclavicular joint documented in this encounter [facility] HealthcareEvaluation noteNo assessment information availableMagruder Hospital Work Phone: Evaluation note* Diagnosis Non-ischemic cardiomyopathy (Multi)- Primary Other primary cardiomyopathies AV block, Mobitz II Mobitz (type) II atrioventricular block Pacemaker Cardiac pacemaker in situ Mixed hyperlipidemia BMI 30.0-30.9,adult documented in this encounter [facility] Work Phone: Evaluation note* Diagnosis Type 2 diabetes mell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, without long-term current use of insulin (HCC) ([facility]/HCC)- Primary Type 2 diabetes mellitus with hyperglycemia, without long-term current use of insulin (CMS/HCC) documented in this encounter [facility] HealthcareEvaluation note* Diagnosis Type 2 diabetes mellitus without complication, unspecified whether ssrs developer insulin use (CMS/[facility])- Primary Pain due to onychomycosis of toenails of both feet documented in this encounter [facility] HealthcareEvaluation note* Diagnosis Type 2 diabetes mell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, without long-term current use of insulin (HCC) (CMS/HCC)- Primary Type 2 diabetes mellitus with hyperglycemia, without long-term current use of insulin (CMS/HCC) Type 2 diabetes mell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, without long-term current use of insulin (HCC) ([facility]/HCC) Type 2 diabetes mellitus with hyperglycemia, without long-term current use of insulin ([facility]/HCC) documented in this encounter [facility] HealthcareEvaluation note* Diagnosis Type 2 diabetes mell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, without long-term current use of insulin (HCC) (CMS/HCC)- Primary Type 2 diabetes mellitus with hyperglycemia, without long-term current use of insulin (CMS/HCC) Type 2 diabetes mell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, without long-term current use of insulin (HCC) ([facility]/HCC) Type 2 diabetes mellitus with hyperglycemia, without long-term current use of insulin (CMS/HCC) Rotator cuff arthropathy, right- Primary Shoulder arthritis Unspecified arthropathy, shoulder region documented in this encounter [facility] HealthcareEvaluation note* Diagnosis Pacemaker- Primary Cardiac pacemaker in situ AV block, Mobitz II Mobitz (type) II atrioventricular block Mixed hyperlipidemia Paroxysmal atrial fibrillation (Multi) Atrial fibrillation Mild tricuspid regurgitation Diabetes mellitus type II, non insulin dependent (Multi) Type II or unspecified type diabetes mellitus without mention of complication, not stated as uncontrolled BMI 28.0-28.9,adult Never smoked tobacco Overweight documented in this encounter [facility] Work Phone: Hospital Discharge instructions Additional Instructions [...] with nurse for incision check in the [facility] Office on - 01/08/2023 at 1:30pm. 2. Chest x-ray to be done the same day as your device check at [facility] 04/15/2023. 3. Pacemaker/ICD clinic appointment at [facility] on 04/15/2023 at 11:00am . 4. Office visit with Dr. Moser. [][facility] Work Phone: Reason for referral (narrative)* Consultation (Routine) - Authorized Specialty Diagnoses / Procedures Referred By Milan stallings Referred To Contact Cardiology Diagnoses AV block, Mobitz II Pacemaker Procedures Follow Up In Cardiology Henrry Issa MD [address] [facility] 2, [address] [address] Henrry Issa MD [facility] [facility] 2, [address] [address] Referral ID Status Reason Start Date Expiration Date V isits Requested Visits Authorized [id number] Authorized 01/14/2023 01/14/2024 1 1 [facility] Work Phone: Reason for referral (narrative)* Consultation (Routine) - Authorized Specialty Diagnoses / Procedures Referred By Milan stallings Referred To Contact Cardiology Diagnoses AV block, Mobitz II Procedures Follow Up In Cardiology Henrry Issa MD [facility] [facility] 2, [address] [address] Stephanie Steward MD [facility] [facility] 2, [facility] [address] [place] [address] Referral ID Status Reason Start Date Expiration Date V isits Requested Visits Authorized [id number] Authorized 07/24/2023 07/23/2024 1 1 [facility] Work Phone: Summary Purpose Family History No [...] :42am i44.1 z95.0 January 15, 2024 7:41am Chief Complaint Admit Date 2nd degree av block April 15, 2024 9:30am 2nd degree av block April 15, 2024 11:06am Reason for Referral Specialty Diagnoses / Procedures Referred By Milan stallings Referred To Contact Orthopaedic Surgery Diagnoses Arthritis of right acromioclavicular joint Procedures M Inj/Asp: R acromioclavicular Trip Brown PA [address] [facility] [address] [place] [address] Referral ID Status Reason Start Date Expiration Date V isits Requested Visits Authorized [id number] Pending Review 04/08/2023 10/05/2023 1 1 Specialty Diagnoses / Procedures Referred By Contac t Referred To Contact Orthopaedic Surgery Diagnoses Rotator cuff arthropathy, right Procedures L Inj/Asp: R subacromial bursa Trip Brown, TODD [address] [facility] [address] [place] [address] Referral ID Status Reason Start Date Expiration Date V isits Requested Visits Authorized [id number] Authorized 04/08/2023 10/05/2023 1 1 Additional Source Comments (unrecognized sect ion and content) No Status Records FoundNo Status Records FoundNo Status Records FoundNo Status Records Found INFORMATION SOURCE (unrecogn ized section and content) DATE CREATED AUTHOR 05/25/2022 [facility] DATE CREATED AUTHOR AUTHOR'S ORGANIZ ATION 02/20/2024 [facility] EPIC DATE CREATED AUTHOR AUTHOR'S ORGANIZ ATION 03/15/2024 [facility] DATE CREATED AUTHOR AUTHOR'S ORGANIZ ATION 04/17/2024 [facility] Care Teams (unrecognized sec [...] MD Other Provider Active Nikia Woodward , [facility] Other Provider Active Lauren Steiner MD Other Provider Active Team Status: Inactive Member Role Status Dates Hugo Moser JR DO Primary Care Provider Active Henrry Issa MD Attending Provider Active Dynamo Tender Relationship Specialty Start Date End Date Hugo Moser DO [address] [place] [id number] PCP - General Internal Medicine 12/31/22 Dynamo Tender Relationship Specialty Start Date End Date Hugo Moser MD [address] [place] [address] [id number] PCP - General Internal Medicine 04/08/23 Team Status: Inactive Member Role Status Dates Hugo Moser JR DO Primary Care Provider Active Start: April 15, 2023 End: April 15, 2023 Henrry Issa MD Referring Provider Active Start: April 15, 2023 End: April 15, 2023 Sangita Salas APRN Attending Provider Active Start: April 15, 2023 End: April 15, 2023 Dynamo Tender Relationship Specialty Start Date End Date Hugo Moser DO PCP - General Internal Medicine 12/31/22 Team Status: Inactive Member Role Status Dates Hugo Moser JR DO Primary Care Provider Active Start: October 16, 2023 End: October 16, 2023 Henrry Issa MD Attending Provider Active Start: October 16, 2023 End: October 16, 2023 Dynamo Tender Relationship Specialty Start Date End Date Hugo Moser MD [address] [place] [address] [id number] PCP - General Internal Medicine 04/08/23 Dynamo Tender Relationship Specialty Start Date End Date Hugo Moser MD [address] [place] [address], [place] [address] PCP - General Internal Medicine 04/08/23 Dynamo Tender Relationship Specialty Start Date End Date Hugo Moser MD [address] [place] [address], [place] [address] PCP - General Internal Medicine 04/08/23 Dynamo Tender Relationship Specialty Start Date End Date Hugo Moser MD [address] [place] [address], [place] [address] PCP - General Internal Medicine 04/08/23 Dynamo Tender Relationship Specialty Start Date End Date Hugo Moser MD [address] [place] [address], [place] [address] PCP - General Internal Medicine 04/08/23 Dynamo Tender Relationship Specialty Start Date End Date Hugo Moser MD [address] [place] [address], [place] [address] PCP - General Internal Medicine 04/08/23 Dynamo Tender Relationship Specialty Start Date End Date Hugo Moser MD [address] [place] [address], [place] [address] PCP - General Internal Medicine 04/08/23 Dynamo Tender Relationship Specialty Start Date End Date Hugo Moser MD [address] [place] [address], [place] [address] PCP - General Internal Medicine 04/08/23 Dynamo Tender Relationship Specialty Start Date End Date Hugo Moser MD [address] [place] [address], [place] [address] PCP - General Internal Medicine 04/08/23 Dynamo Tender Relationship Specialty Start Date End Date Hugo Moser PCP - General Internal Medicine 12/31/22 Team Status: Active Member Role Status Dates Hugo Moser JR DO Primary Care Provider Active Start: April 15, 2024 Henrry Issa MD Other Provider Active Start: April 15, 2024 Cristian Teran MD Attending Provider Active Start: April 15, 2024 Team Status: Inactive Member Role Status Dates Hugo Moser JR DO Primary Care Provider Active Start: April 15, 2024 End: April 15, 2024 Henrry Issa MD Attending Provider Active Start: April 15, 2024 End: April 15, 2024 Reason for Visit (unrecogniz ed section and content) Reason Comments Follow-up Swelling and pain at pacemaker site.Placed 2 weeks ago. Specialty Diagnoses / Procedures Referred By Contac t Referred To Contact Cardiology Diagnoses AV block, Mobitz II Pacemaker Procedures Follow Up In Cardiology Henrry Issa MD [address] [place] [address], [address] [address] Referral ID Status Reason Start Date Expiration Date V isits Requested Visits Authorized [id number] Authorized 01/14/2023 01/14/2024 1 1 Reason Comments Pain Reason Comments Follow-up 6 month Specialty Diagnoses / Procedures Referred By Contac t Referred To Contact Cardiology Diagnoses AV block, Mobitz II Pacemaker Procedures Follow Up In Cardiology Henrry Issa MD [address] [place] [address], [address] [address] Henrry Issa MD [address] [place] [address], [address] [address] Referral ID Status Reason Start Date Expiration Date V isits Requested Visits Authorized [id number] Authorized 01/14/2023 01/14/2024 1 1 Reason Comments Diabetes Reason Comments DM Foot Care Dm nail care Reason Comments Follow-up Reason Comments Follow-up 6m Specialty Diagnoses / Procedures Referred By Contac t Referred To Contact Cardiology Diagnoses AV block, Mobitz II Procedures Follow Up In Cardiology Henrry Issa MD Ibrahim, Hassan M, MD [address] [facility], [address] [address] Phone: tel: fax: Referral ID Status Reason Start Date Expiration Date V isits Requested Visits Authorized [id number] Authorized 07/24/2023 07/23/2024 1 1 Reason Onset Date Comments Appointment Confirmation 04/15/2024 Goals (unrecognized section and content) Goals may [...] BE BASED ON THE PRIMARY CLINICAL RECORDS. [employer] provides no warranty or guarantee of the accuracy or completeness of information in this document.
--- OUTSIDE RECORDS SUMMARY | 2024-04-20 06:35 | XMS_ITS | CCD ---
Author Organization [facility] CliniSynv Care Team Providers Care Geodetic Engineer Name Role Phone SHANTI, DR ARIAS Admitting [...] Care Unavailable VALONE, DR ARIAS Consulting Unavailable Valone, JR Hugo Ferris Primary Care Provider [phone] DO Jarred Cline Admit Provider MD Katie Osborne Attending Provider [phone] SULEIMAN Prakash Other Provider Unavailable DO Aretha Chaparro Other Provider MD Stephanie Steward Other Provider MD Henrry Issa Other Provider MD Farzana Escalera Other Provider MD Hugo Johnson Other Provider BHAVIN Gregorio Other Provider MD Natacha Padron Other Provider MD Kang Douglas Other Provider MD Jordan Bolanos Other Provider Crissy [facility] Nikia Ferris Other Provider MD Lauren Steiner Other Provider JR Hugo Moser Primary Care Provider [phone] DO Jarred Cline Admit Provider MD Katie Osborne Attending Provider SULEIMAN Prakash Other Provider Unavailable DO Aretha Chaparro Other Provider MD Stephanie Steward Other Provider MD Henrry Issa Other Provider MD Farzana Escalera Other Provider MD Hugo Johnson Other Provider BHAVIN Gregorio Other Provider MD Natacha Padron Other Provider MD Kang Douglas Other Provider MD Jordan Bolanos Other Provider Crissy [facility] Nikia Ferris Other Provider MD Lauren Steiner Other Provider MD Henrry Issa Attending Provider Hugo Moser DO Primary Care Provider Hugo Moser MD Primary Care Provider JR Hugo Moser Primary Care Provider MD Henrry Issa Referring Provider BHAVIN Gregorio Attending Provider Hugo Moser DO Primary Care Provider JR Hugo Moser Primary Care Provider MD Henrry Issa Attending Provider HENRRY ISSA Attending Unavailable HENRRY ISSA Referring Unavailable HUGO MOSER Primary Care Unavailable STEPHANIE STEWARD Attending Unavailable HENRRY ISSA Referring Unavailable HUGO MOSER Primary Care Unavailable Hugo Moser JR Primary Care Provider Henrry Issa MD Attending Provider Henrry Issa Admitting Unavail able Henrry Issa Attending Unavail able Hugo Moser Primary Care Unavailable Henrry Issa Admitting Unavail able Henrry Issa Attending Unavail able Hugo Moser Primary Care Unavailable Stephanie Steward Admitting Unavailable Stephanie Steward Attending Unavailable Hugo Moser Primary Care Unavailable Henrry Issa Admitting Unavail able Henrry Issa Attending Unavail able Hugo Moser Primary Care Unavailable VEDA ROME Attending Mathew CÁRDENAS JR., GINI Griffin Attending Unavailpamela CÁRDENAS JR., GINI Griffin Attending Unavaila VEDA Soto Attending Unavailable HUGO MOSER Referring Unavailable KENNEDY CAMARA Attending Unavailable VEDA ROME Attending Unavailable JR. NASREEN, GINI Griffin Attending Unavaila rani Medications Current Medications Medication Drug Class(es) Dates [...] hyperglycemia, without long-term current use of insulin ([facility]) Inject 12 Units under the skin Daily [...] without long-term current use of insulin (HCC) ([facility]/HCC) Injections subcutaneous daily 100 each 3 [...] without long-term current use of insulin (HCC) ([facility]) Inject 15 Units under the skin Daily [...] 04-08-2023 Chronic Other aftercare (1 source) Other penitentiary (current) drug therapy; Translations: [OTH CILNICAL SCIENTIST 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 THERAPY] Onset: 3 Episodic Other [...] ensing and ventricular pacing rhythm, abnormal ECG [facility] Work Phone: HbA1c (Bld) [Mass fraction]o n 01-18-2024 Interpretation and review of laboratory results Abnormal [facility] - Hematology and Cell countson 01-18-2024 HbA1c (Bld) [Mass fraction] 10.4 % [facility] L Inj/Asp: R subacromial bur saon 04-08-2023 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 Pt given injection Right Shoulder SA space with 2ml of 2 % lidocaine (Code 27233 RT) Procedure, treatment alternatives, risks and benefits explained, specific risks discussed. Consent was given by the patient. [facility] M Inj/Asp: R acromioclavicul garrett 04-08-2023 TODD [...] in the usual sterile fashion. [facility] Basophils Auto (Bld) [#/Vol] Ordered By: Jarred Cline on 12-31-2022 Basophils (Bld) [#/Vol] 0.0 10*3/uL 0.0-0.2 [facility] Basophils/100 WBC Auto (Bld) Ordered By: Jarred Cline on 12-31-2022 Basophils/100 WBC (Bld) 0.6 % . [facility] Calcium [Mass/volume] in Ser um or PlasmaOrdered By: Jarred Cline on 12-31-2022 Calcium [Mass/Vol] 8.9 mg/dL 8.6-10.3 [facility] Carbon dioxide, total [Moles /volume] in Serum or PlasmaOrdered By: Jarred Cline on 12-31-2022 CO2 [Moles/Vol] 22.9 mmol/L 21.0-31.0 [facility] Chloride [Moles/volume] in S chiquis or PlasmaOrdered By: Jarred Cline on 12-31-2022 Chloride [Moles/Vol] 106 mmol/L 98-107 [facility] Creatinine [Mass/volume] in Serum or PlasmaOrdered By: Jarred Cline on 12-31-2022 Creatinine [Mass/Vol] 1.20 mg/dL 0.70-1.30 [facility] Eosinophils Auto (Bld) [#/Vo l]Ordered By: Jarred Cline on 12-31-2022 Eosinophils (Bld) [#/Vol] 0.1 10*3/uL 0.0-0.45 [facility] Eosinophils/100 WBC Auto (Bl d)Ordered By: Jarred Cline on 12-31-2022 Eosinophils/100 WBC (Bld) 1.6 % . [facility] Erythrocyte distribution wid th Auto (RBC) [Ratio]Ordered By: Jarred Cline on 12-31-2022 Erythrocyte distribution width (RBC) [Ratio] 14.9 % 12.0-14.8 [facility] Glucose [Mass/volume] in Ser um or PlasmaOrdered By: Jarred Cline on 12-31-2022 Glucose [Mass/Vol] 175 mg/dL 70-100 [facility] Comment on above: ADA recommended refe rence rangeRandom Glucose Reference Range is dependent on time and content of last meal. Glucose of more than 200 mg/dL in a nonstressed, ambulatory subject supports the diagnosis of Diabetes Mellitus. Hematocrit Auto (Bld) [Volum e fraction]Ordered By: Jarred Cline on 12-31-2022 Hematocrit (Bld) [Volume fraction] 39.1 % 38.8-50.0 [facility] Hemoglobin [Mass/volume] in BloodOrdered By: Jarred Cline on 12-31-2022 Hemoglobin (Bld) [Mass/Vol] 13.0 g/dL 13.0-17.0 [facility] Leukocytes [#/volume] correc adela for nucleated erythrocytes in Blood by Automated counOrdered By: Jarred Cline on 12-31-2022 WBC corrected for nucl RBC Auto (Bld) [#/Vol] 6.7 10*3/uL 4.1-10.5 [facility] Lymphocytes Auto (Bld) [#/Vo l]Ordered By: Jarred Cline on 12-31-2022 Lymphocytes (Bld) [#/Vol] 1.9 10*3/uL 1.00-4.8 [facility] Lymphocytes/100 WBC Auto (Bl d)Ordered By: Jarred Cline on 12-31-2022 Lymphocytes/100 WBC (Bld) 27.7 % . [facility] MCH Auto (RBC) [Entitic mass ]Ordered By: Jarred Cline on 12-31-2022 MCH (RBC) [Entitic mass] 30.5 pg 27.5-35.2 [facility] MCHC Auto (RBC) [Mass/Vol]Or dered By: Jarred Cline on 12-31-2022 MCHC (RBC) [Mass/Vol] 33.3 g/dL 32.5-35.6 [facility] MCV Auto (RBC) [Entitic vol] Ordered By: Jarred Cline on 12-31-2022 MCV (RBC) [Entitic vol] 91.5 fL 83.5-101 [facility] Magnesium [Mass/volume] in S chiquis or PlasmaOrdered By: Jarred Cline on 12-31-2022 Magnesium [Mass/Vol] 2.1 mg/dL 1.9-2.7 [facility] Monocytes Auto (Bld) [#/Vol] Ordered By: Jarred Cline on 12-31-2022 Monocytes (Bld) [#/Vol] 0.6 10*3/uL 0.0-0.8 [facility] Monocytes/100 WBC Auto (Bld) Ordered By: Jarred Cline on 12-31-2022 Monocytes/100 WBC (Bld) 8.9 % . [facility] Neutrophils Auto (Bld) [#/Vo l]Ordered By: Jarred Cline on 12-31-2022 Neutrophils (Bld) [#/Vol] 4.1 10*3/uL 1.8-7.7 [facility] Neutrophils/100 WBC Auto (Bl d)Ordered By: Jarred Cline on 12-31-2022 Neutrophils/100 WBC (Bld) 61.2 % . [facility] No Panel InformationOrdered By: Jarred Cline on 12-31-2022 Estimated GFR (CKD-EPI) > 60.0 mL/Min [facility] Creatinine Clearance (Chem 48.99 [facility] Nucleated erythrocytes [Pres ence] in Blood by Automated countOrdered By: Jarred Cline on 12-31-2022 Nucleated RBC Auto Ql (Bld) 0.0 /100{WBC} 0-0.5 [facility] Platelet mean volume Auto (B ld) [Entitic vol]Ordered By: Jarred Cline on 12-31-2022 Platelet mean volume (Bld) [Entitic vol] 7.2 fL 6.6-10.1 [facility] Platelets Auto (Bld) [#/Vol] Ordered By: Jarred Cline on 12-31-2022 Platelets (Bld) [#/Vol] 148 10*3/uL 150-450 [facility] Potassium [Moles/volume] in Serum or PlasmaOrdered By: Jarred Cline on 12-31-2022 Potassium [Moles/Vol] 4.1 mmol/L 3.5-5.1 [facility] RBC Auto (Bld) [#/Vol]Ordere d By: Jarred Cline on 12-31-2022 RBC (Bld) [#/Vol] 4.27 10*6/uL 3.90-5.60 [facility] Serum or plasma anion gap de terminationOrdered By: Jarred Cline on 12-31-2022 Anion gap [Moles/Vol] 12.2 mmol/L 6.0-15.0 [facility] Sodium [Moles/volume] in Ser um or PlasmaOrdered By: Jarred Cline on 12-31-2022 Sodium [Moles/Vol] 137 mmol/L 136-145 [facility] Urea nitrogen [Mass/volume] in Serum or PlasmaOrdered By: Jarred Cline on 12-31-2022 Urea nitrogen [Mass/Vol] 23 mg/dL 7-25 [facility] WBC Auto (Bld) [#/Vol]Ordere d By: Jarred Cline on 12-31-2022 WBC (Bld) [#/Vol] 6.7 10*3/uL 4.1-10.5 [facility] Activated partial thrombopla stin time (aPTT) in platelet poor plasma by coagulation aOrdered By: Henrry Issa on 12-30-2022 aPTT Coag (PPP) [Time] 30.2 s 25.1-36.5 [facility] Comment on above: A hematocrit value g reater than 55% may lead to inaccurate results in coagulation testing. Patients having hematocrit values >55% require a special collection tube for coagulation studies. Please contact the laboratory at [phone] for redraw instructions. Glucose Glucometer (BldC) [M ass/Vol]Ordered By: Katie Osborne on 12-30-2022 Glucose [Mass/Vol] 183 mg/dL [facility] Comment on above: Random Glucose Refer ence Range is dependent on time and content of last meal. Glucose of more than 200 mg/dL in a nonstressed, ambulatory subject supports the diagnosis of Diabetes Mellitus. INR in Platelet poor plasma by Coagulation assayOrdered By: Henrry Issa on 12-30-2022 INR Coag (PPP) [Relative time] 1.1 {INR} [facility] Comment on above: INR Therapeutic Rang [...] PT Coag (PPP) [Time] 13.1 s 9.0-12.9 [facility] Comment on above: A hematocrit value g reater than 55% may lead to inaccurate results in coagulation testing. Patients having hematocrit values >55% require a special collection tube for coagulation studies. Please contact the laboratory at [phone] for redraw instructions. Cholesterol [Mass/volume] in Serum or PlasmaOrdered By: Jarred Cline on 12-29-2022 Cholesterol [Mass/Vol] 96 mg/dL 140-200 [facility] Comment on above: Chol less than 200 m g/dl low riskChol 201-239 mg/dl borderline riskChol 240 mg/dl and greater high risk Cholesterol in LDL Calc [Mas s/Vol]Ordered By: Jarred Cline on 12-29-2022 Cholesterol in LDL [Mass/Vol] 40 mg/dL 0-100 [facility] Comment on above: LDL ATP III CLASSIFI CATIONLDL less than 100 mg/dL OptimalLDL 100-129 mg/dL Near or above optimalLDL 130-159 mg/dL Borderline highLDL 160-189 mg/dL HighLDL greater than 189 mg/dL Very high Cholesterol in VLDL Calc [Ma ss/Vol]Ordered By: Jarred Cline on 12-29-2022 Cholesterol in VLDL [Mass/Vol] 26 mg/dL [facility] Serum or plasma high density lipoprotein (HDL) cholesterol measurementOrdered By: Jarred Cline on 12-29-2022 Cholesterol in HDL [Mass/Vol] 30 mg/dL 23-92 [facility] Comment on above: HDL CHOL ATP-III CLA SSIFICATION Cardiovascular RiskHDL > or equal to 60 mg/dL LOWHDL < 40 mg/dL HIGH Serum or plasma total choles terol/high density lipoprotein (HDL) cholesterol mass ratOrdered By: Jarred Cline on 12-29-2022 Cholesterol.total/Chol esterol in HDL [Mass ratio] 3.2 {ratio} <5.0 [facility] Triglyceride [Mass/volume] i n Serum or PlasmaOrdered By: Jarred Cline on 12-29-2022 Triglyceride [Mass/Vol] 132 mg/dL 0-149 [facility] Comment on above: TRIG ATP III [...] from glycated hemoglobin (Bld) [Mass/Vol] 212 mg/dL [facility] Hemoglobin A1c percentageOrd ered By: aJrred Cline on 12-28-2022 HbA1c (Bld) [Mass fraction] 9.0 % 4.3-5.6 [facility] Comment on above: Increased risk for d iabetes: 5.7 - 6.4diabetes: >6.4glycemic control for adults with diabetes: <7.0 BNPon 05-19-2022 Natriuretic peptide B (Bld) [Mass/Vol] 74.0 pg/mL Normal <=1,800.0 [facility] Comment on above: Performed By: #### E LEC, BUN, BNP, LIVER, CREA #### [facility] [address] [place] [address] Dr. Brissa Ma BUNon 05-19-2022 Urea nitrogen [Mass/Vol] 41.0 mg/dL Critically high 7.0-18.0 [facility] Comment on above: Performed By: #### E LEC, BUN, BNP, LIVER, CREA #### [facility] [address] [place] [address] Dr. Brissa Ma CBC AUTO DIFFon 05-19-2022 BASO # 0.1 103/ul Normal 0.0-0.1 [facility] Comment on above: Performed By: #### E LEC, BUN, BNP, LIVER, CREA #### [facility] [address] [place] [address] Dr. Brissa Ma Basophils/100 WBC (Bld) 0.8 % Normal 0.2-2.0 [facility] Comment on above: Performed By: #### E LEC, BUN, BNP, LIVER, CREA #### [facility] [address] [place] [address] Dr. Brissa Ma EO # 0.1 103/ul Normal 0.0-0.7 [facility] Comment on above: Performed By: #### E LEC, BUN, BNP, LIVER, CREA #### [facility] [address] [place] [address] Dr. Brissa Ma Eosinophils/100 WBC (Bld) 1.1 % Normal 0.9-7.0 [facility] Comment on above: Performed By: #### E LEC, BUN, BNP, LIVER, CREA #### [facility] [address] [place] [address] Dr. Brissa Ma Erythrocyte distribution width (RBC) [Ratio] 14.1 % Normal 11.0-15.0 [facility] Comment on above: Performed By: #### E LEC, BUN, BNP, LIVER, CREA #### [facility] [address] [place] [address] Dr. Brissa Ma Hematocrit (Bld) [Volume fraction] 47.8 % Normal 42.0-54.0 [facility] Comment on above: Performed By: #### E LEC, BUN, BNP, LIVER, CREA #### [facility] [address] [place] [address] Dr. Brissa Ma Hemoglobin (Bld) [Mass/Vol] 15.3 g/dL Normal 14.0-18.0 [facility] Comment on above: Performed By: #### E LEC, BUN, BNP, LIVER, CREA #### [facility] [address] [place] [address] Dr. Brissa Ma IG # 0.17 10e3/ul Critically high 0.00-0.03 [facility] Comment on above: Performed By: #### E LEC, BUN, BNP, LIVER, CREA #### [facility] [address] [place] [address] Dr. Brissa Ma IG % 1.7 % Critically high 0.0-0.5 [facility] Comment on above: Performed By: #### E LEC, BUN, BNP, LIVER, CREA #### [facility] [address] [place] [address] Dr. Brissa Ma LYMPH # 3.8 103/ul Normal 1.2-3.8 [facility] Comment on above: Performed By: #### E LEC, BUN, BNP, LIVER, CREA #### [facility] [address] [place] [address] Dr. Brissa Ma Lymphocytes/100 WBC (Bld) 38.4 % Normal 20.5-60.0 [facility] Comment on above: Performed By: #### E LEC, BUN, BNP, LIVER, CREA #### [facility] [address] [place] [address] Dr. Brissa Ma MANUAL DIFF REQ NO Normal [facility] Comment on above: Performed By: #### E LEC, BUN, BNP, LIVER, CREA #### [facility] [address] [place] [address] Dr. Brissa Ma MCH (RBC) [Entitic mass] 30.2 pg Normal 25.9-34.0 [facility] Comment on above: Performed By: #### E LEC, BUN, BNP, LIVER, CREA #### [facility] [address] [place] [address] Dr. Brissa Ma MCHC (RBC) [Mass/Vol] 32.0 g/dL Normal 29.9-35.2 [facility] Comment on above: Performed By: #### E LEC, BUN, BNP, LIVER, CREA #### [facility] [address] [place] [address] Dr. Brissa Ma MCV (RBC) [Entitic vol] 94.3 fL Critically high 80.0-94.0 [facility] Comment on above: Performed By: #### E LEC, BUN, BNP, LIVER, CREA #### [facility] [address] [place] [address] Dr. Brissa Ma MONO # 0.7 103/ul Normal 0.3-0.8 [facility] Comment on above: Performed By: #### E LEC, BUN, BNP, LIVER, CREA #### [facility] [address] [place] [address] Dr. Brissa Ma Monocytes/100 WBC (Bld) 7.4 % Normal 1.7-12.0 [facility] Comment on above: Performed By: #### E LEC, BUN, BNP, LIVER, CREA #### [facility] [address] [place] [address] Dr. Brissa Ma NEUT # 5.0 103/ul Normal 1.4-6.5 [facility] Comment on above: Performed By: #### E LEC, BUN, BNP, LIVER, CREA #### [facility] [address] [place] [address] Dr. Brissa Ma Neutrophils/100 WBC (Bld) 50.6 % Normal 43.0-75.0 [facility] Comment on above: Performed By: #### E LEC, BUN, BNP, LIVER, CREA #### [facility] [address] [address] [address] Brissa Ma Platelet mean volume (Bld) [Entitic vol] 9.0 fL Critically low 9.5-13.5 [facility] Comment on above: Performed By: #### E LEC, BUN, BNP, LIVER, CREA #### [facility] [address] [address] [address] Brissa Ma PLT 205 103/ul Normal 150-450 [facility] Comment on above: Performed By: #### E LEC, BUN, BNP, LIVER, CREA #### [facility] [address] [place] [address] Dr. Brissa Ma RBC 5.07 106/ul Normal 4.70-6.10 [facility] Comment on above: Performed By: #### E LEC, BUN, BNP, LIVER, CREA #### [facility] [address] [address] [address] Brissa Ma WBC 9.9 103/ul Normal 4.0-11.0 [facility] Comment on above: Performed By: #### E LEC, BUN, BNP, LIVER, CREA #### [facility] [address] [address] [address] Brissa Ma CREATININEon 05-19-2022 Creatinine [Mass/Vol] 1.60 mg/dL Critically high 0.70-1.30 [facility] Comment on above: Performed By: #### E LEC, BUN, BNP, LIVER, CREA #### [facility] [address] [address] [address] Brissa Ma EGFR-AF CHADIAN 50 mL/min/1.73m2 Critically low >=60 [facility] Comment on above: Performed By: #### E LEC, BUN, BNP, LIVER, CREA #### [facility] [address] [address] [address] Brissa Ma EGFR-NON AF CHADIAN 42 mL/min/1.73m2 Critically low >=60 [facility] Comment on above: Performed By: #### E LEC, BUN, BNP, LIVER, CREA #### [facility] [address] [place] [address] Dr. Brissa Ma ELECTROLYTESon 05-19-2022 Anion gap [Moles/Vol] 15.5 mmol/L Normal [facility] Comment on above: Performed By: #### E LEC, BUN, BNP, LIVER, CREA #### [facility] [address] [place] [address] Dr. Brissa Ma Chloride [Moles/Vol] 102 mmol/L Normal 98-107 [facility] Comment on above: Performed By: #### E LEC, BUN, BNP, LIVER, CREA #### [facility] [address] [place] [address] Dr. Brissa Ma CO2 [Moles/Vol] 25.5 mmol/L Normal 21.0-32.0 [facility] Comment on above: Performed By: #### E LEC, BUN, BNP, LIVER, CREA #### [facility] [address] [place] [address] Dr. Brissa Ma Potassium [Moles/Vol] 5.0 mmol/L Normal 3.5-5.1 [facility] Comment on above: Performed By: #### E LEC, BUN, BNP, LIVER, CREA #### [facility] [address] [place] [address] Dr. Brissa Ma Sodium [Moles/Vol] 138 mmol/L Normal 136-145 [facility] Comment on above: Performed By: #### E LEC, BUN, BNP, LIVER, CREA #### [facility] [address] [place] [address] Dr. Brissa Ma GLYCOHEMOGLOBIN A1Con 2022 ADA RECOMMENDATION SEE BELOW Normal [facility] Comment on above: Result Comment: ADA RECOMMENDED LIMIT 4.0 - 6.0 ADA THERAPEUTIC TARGET < 7.0 ACTION SUGGESTED > 7.0 Performed By: #### A 1C #### [facility] [address] [address] [address] Brissa Ma Glucose [Mass/Vol] 203 mg/dL Normal [facility] Comment on above: Performed By: #### A 1C #### [facility] [address] [address] [address] Birssa Ma HbA1c (Bld) [Mass fraction] 8.7 % Critically high 4.5-6.2 [facility] Comment on above: Performed By: #### A 1C #### [facility] [address] [place] [address] Dr. Brissa Ma LIVER PROFILEon 05-19-2022 Albumin [Mass/Vol] 3.7 g/dL Normal 3.4-5.0 [facility] Comment on above: Performed By: #### E LEC, BUN, BNP, LIVER, CREA #### [facility] [address] [place] [address] Dr. Brissa Ma Albumin/Globulin [Mass ratio] 1.0 {ratio} Normal [facility] Comment on above: Performed By: #### E LEC, BUN, BNP, LIVER, CREA #### [facility] [address] [place] [address] Dr. Brissa Ma ALP [Catalytic activity/Vol] 80 U/L Normal 46-116 [facility] Comment on above: Performed By: #### E LEC, BUN, BNP, LIVER, CREA #### [facility] [address] [place] [address] Dr. Brissa Ma ALT [Catalytic activity/Vol] 16 U/L Normal 16-63 [facility] Comment on above: Performed By: #### E LEC, BUN, BNP, LIVER, CREA #### [facility] [address] [place] [address] Dr. Brissa Ma AST [Catalytic activity/Vol] 18 U/L Normal 15-37 [facility] Comment on above: Performed By: #### E LEC, BUN, BNP, LIVER, CREA #### [facility] [address] [place] [address] Dr. Brissa Ma BILI, CONJUGATED 0.1 mg/dL Normal 0.0-0.2 [facility] Comment on above: Performed By: #### E LEC, BUN, BNP, LIVER, CREA #### [facility] [address] [place] [address] Dr. Brissa Ma Bilirubin [Mass/Vol] 0.7 mg/dL Normal 0.2-1.0 [facility] Comment on above: Performed By: #### E LEC, BUN, BNP, LIVER, CREA #### [facility] [address] [place] [address] Dr. Brissa Ma Globulin (S) [Mass/Vol] 3.8 g/dL Normal [facility] Comment on above: Performed By: #### E LEC, BUN, BNP, LIVER, CREA #### [facility] [address] [place] [address] Dr. Brissa Ma Protein [Mass/Vol] 7.5 g/dL Normal 6.4-8.2 [facility] Comment on above: Performed By: #### E LEC, BUN, BNP, LIVER, CREA #### [facility] [address] [place] [address] Dr. Brissa Ma BNPon 01-22-2022 Natriuretic peptide B (Bld) [Mass/Vol] 150.0 pg/mL Normal <=1,800.0 [facility] Comment on above: Performed By: #### E LEC, BUN, BNP, LIVER, CREA #### [facility] [facility] [address] [place] [address] Dr. Brissa Ma BUNon 01-22-2022 Urea nitrogen [Mass/Vol] 22.0 mg/dL Critically high 7.0-18.0 [facility] Comment on above: Performed By: #### E LEC, BUN, BNP, LIVER, CREA #### [facility] [address] [place] [address] Dr. Brissa Ma CBC AUTO DIFFon 01-22-2022 BASO # 0.0 103/ul Normal 0.0-0.1 [facility] Comment on above: Performed By: #### E LEC, BUN, BNP, LIVER, CREA #### [facility] [address] [place] [address] Dr. Brissa Ma Basophils/100 WBC (Bld) 0.5 % Normal 0.2-2.0 [facility] Comment on above: Performed By: #### E LEC, BUN, BNP, LIVER, CREA #### [facility] [address] [place] [address] Dr. Brissa Ma EO # 0.1 103/ul Normal 0.0-0.7 [facility] Comment on above: Performed By: #### E LEC, BUN, BNP, LIVER, CREA #### [facility] [address] [place] [address] Dr. Brissa Ma Eosinophils/100 WBC (Bld) 1.9 % Normal 0.9-7.0 [facility] Comment on above: Performed By: #### E LEC, BUN, BNP, LIVER, CREA #### [facility] [address] [place] [address] Dr. Brissa Ma Erythrocyte distribution width (RBC) [Ratio] 14.1 % Normal 11.0-15.0 [facility] Comment on above: Performed By: #### E LEC, BUN, BNP, LIVER, CREA #### [facility] [address] [place] [address] Dr. Brissa Ma Hematocrit (Bld) [Volume fraction] 43.1 % Normal 42.0-54.0 [facility] Comment on above: Performed By: #### E LEC, BUN, BNP, LIVER, CREA #### [facility] [address] [place] [address] Dr. Brissa Ma Hemoglobin (Bld) [Mass/Vol] 13.7 g/dL Critically low 14.0-18.0 [facility] Comment on above: Performed By: #### E LEC, BUN, BNP, LIVER, CREA #### [facility] [address] [place] [address] Dr. Brissa Ma IG # 0.05 10e3/ul Critically high 0.00-0.03 [facility] Comment on above: Performed By: #### E LEC, BUN, BNP, LIVER, CREA #### [facility] [address] [place] [address] Dr. Brissa Ma IG % 0.8 % Critically high 0.0-0.5 [facility] Comment on above: Performed By: #### E LEC, BUN, BNP, LIVER, CREA #### [facility] [address] [place] [address] Dr. Brissa Ma LYMPH # 2.7 103/ul Normal 1.2-3.8 [facility] Comment on above: Performed By: #### E LEC, BUN, BNP, LIVER, CREA #### [facility] [address] [place] [address] Dr. Brissa Ma Lymphocytes/100 WBC (Bld) 42.1 % Normal 20.5-60.0 [facility] Comment on above: Performed By: #### E LEC, BUN, BNP, LIVER, CREA #### [facility] [address] [place] [address] Dr. Brissa Ma MANUAL DIFF REQ NO Normal [facility] Comment on above: Performed By: #### E LEC, BUN, BNP, LIVER, CREA #### [facility] [address] [place] [address] Dr. Brissa Ma MCH (RBC) [Entitic mass] 29.8 pg Normal 25.9-34.0 [facility] Comment on above: Performed By: #### E LEC, BUN, BNP, LIVER, CREA #### [facility] [address] [place] [address] Dr. Brissa Ma MCHC (RBC) [Mass/Vol] 31.8 g/dL Normal 29.9-35.2 [facility] Comment on above: Performed By: #### E LEC, BUN, BNP, LIVER, CREA #### [facility] [address] [place] [address] Dr. Brissa Ma MCV (RBC) [Entitic vol] 93.9 fL Normal 80.0-94.0 [facility] Comment on above: Performed By: #### E LEC, BUN, BNP, LIVER, CREA #### [facility] [address] [place] [address] Dr. Brissa Ma MONO # 0.5 103/ul Normal 0.3-0.8 [facility] Comment on above: Performed By: #### E LEC, BUN, BNP, LIVER, CREA #### [facility] [address] [place] [address] Dr. Brissa Ma Monocytes/100 WBC (Bld) 7.8 % Normal 1.7-12.0 [facility] Comment on above: Performed By: #### E LEC, BUN, BNP, LIVER, CREA #### [facility] [address] [place] [address] Dr. Brissa Ma NEUT # 3.0 103/ul Normal 1.4-6.5 [facility] Comment on above: Performed By: #### E LEC, BUN, BNP, LIVER, CREA #### [facility] [address] [place] [address] Dr. Brissa Ma Neutrophils/100 WBC (Bld) 46.9 % Normal 43.0-75.0 [facility] Comment on above: Performed By: #### E LEC, BUN, BNP, LIVER, CREA #### [facility] [address] [place] [address] Dr. Brissa Ma Platelet mean volume (Bld) [Entitic vol] 9.2 fL Critically low 9.5-13.5 [facility] Comment on above: Performed By: #### E LEC, BUN, BNP, LIVER, CREA #### [facility] [address] [place] [address] Dr. Brissa Ma PLT 163 103/ul Normal 150-450 [facility] Comment on above: Performed By: #### E LEC, BUN, BNP, LIVER, CREA #### [facility] [address] [place] [address] Dr. Brissa Ma RBC 4.59 106/ul Critically low 4.70-6.10 [facility] Comment on above: Performed By: #### E LEC, BUN, BNP, LIVER, CREA #### [facility] [address] [place] [address] Dr. Brissa Ma WBC 6.4 103/ul Normal 4.0-11.0 [facility] Comment on above: Performed By: #### E LEC, BUN, BNP, LIVER, CREA #### [facility] [address] [place] [address] Dr. Brissa Ma CREATININEon 01-22-2022 Creatinine [Mass/Vol] 1.47 mg/dL Critically high 0.70-1.30 [facility] Comment on above: Performed By: #### E LEC, BUN, BNP, LIVER, CREA #### [facility] [address] [place] [address] Dr. Brissa Ma EGFR-AF CHADIAN 56 mL/min/1.73m2 Critically low >=60 [facility] Comment on above: Performed By: #### E LEC, BUN, BNP, LIVER, CREA #### [facility] [address] [place] [address] Dr. Brissa Ma EGFR-NON AF CHADIAN 46 mL/min/1.73m2 Critically low >=60 [facility] Comment on above: Performed By: #### E LEC, BUN, BNP, LIVER, CREA #### [facility] [address] [place] [address] Dr. Brissa Ma ELECTROLYTESon 01-22-2022 Anion gap [Moles/Vol] 10.1 mmol/L Normal [facility] Comment on above: Performed By: #### E LEC, BUN, BNP, LIVER, CREA #### [facility] [address] [place] [address] Dr. Brissa Ma Chloride [Moles/Vol] 106 mmol/L Normal 98-107 [facility] Comment on above: Performed By: #### E LEC, BUN, BNP, LIVER, CREA #### [facility] [address] [place] [address] Dr. Brissa Ma CO2 [Moles/Vol] 28.4 mmol/L Normal 21.0-32.0 [facility] Comment on above: Performed By: #### E LEC, BUN, BNP, LIVER, CREA #### [facility] [address] [place] [address] Dr. Brissa Ma Potassium [Moles/Vol] 4.5 mmol/L Normal 3.5-5.1 [facility] Comment on above: Performed By: #### E LEC, BUN, BNP, LIVER, CREA #### [facility] [address] [address] [address] Brissa Ma Sodium [Moles/Vol] 140 mmol/L Normal 136-145 [facility] Comment on above: Performed By: #### E LEC, BUN, BNP, LIVER, CREA #### [facility] [address] [address] [address] Brissa Ma GLYCOHEMOGLOBIN A1Con 2021 ADA RECOMMENDATION SEE BELOW Normal [facility] Comment on above: Result Comment: ADA RECOMMENDED LIMIT 4.0 - 6.0 ADA THERAPEUTIC TARGET < 7.0 ACTION SUGGESTED > 7.0 Performed By: #### A 1C #### [facility] [address] [place] [address] Dr. Brissa Ma Glucose [Mass/Vol] 223 mg/dL Normal [facility] Comment on above: Performed By: #### A 1C #### [facility] [address] [place] [address] Dr. Brissa Ma HbA1c (Bld) [Mass fraction] 9.4 % Critically high 4.5-6.2 [facility] Comment on above: Performed By: #### A 1C #### [facility] [address] [place] [address] Dr. Brissa Ma LIVER PROFILEon 01-22-2022 Albumin [Mass/Vol] 3.6 g/dL Normal 3.4-5.0 [facility] Comment on above: Performed By: #### E LEC, BUN, BNP, LIVER, CREA #### [facility] [address] [address] [address] Brissa Ma Albumin/Globulin [Mass ratio] 1.0 {ratio} Normal [facility] Comment on above: Performed By: #### E LEC, BUN, BNP, LIVER, CREA #### [facility] [address] [address] [address] Brissa Ma ALP [Catalytic activity/Vol] 86 U/L Normal 46-116 [facility] Comment on above: Performed By: #### E LEC, BUN, BNP, LIVER, CREA #### [facility] [address] [place] [address] Dr. Brissa Ma ALT [Catalytic activity/Vol] 18 U/L Normal 16-63 [facility] Comment on above: Performed By: #### E LEC, BUN, BNP, LIVER, CREA #### [facility] [address] [place] [address] Dr. Brissa Ma AST [Catalytic activity/Vol] 20 U/L Normal 15-37 [facility] Comment on above: Performed By: #### E LEC, BUN, BNP, LIVER, CREA #### [facility] [address] [place] [address] Dr. Brissa Ma BILI, CONJUGATED 0.1 mg/dL Normal 0.0-0.2 [facility] Comment on above: Performed By: #### E LEC, BUN, BNP, LIVER, CREA #### [facility] [address] [place] [address] Dr. Brissa Ma Bilirubin [Mass/Vol] 0.4 mg/dL Normal 0.2-1.0 [facility] Comment on above: Performed By: #### E LEC, BUN, BNP, LIVER, CREA #### [facility] [address] [place] [address] Dr. Brissa Ma Globulin (S) [Mass/Vol] 3.7 g/dL Normal [facility] Comment on above: Performed By: #### E LEC, BUN, BNP, LIVER, CREA #### [facility] [address] [place] [address] Dr. Brissa Ma Protein [Mass/Vol] 7.3 g/dL Normal 6.4-8.2 [facility] Comment on above: Performed By: #### E LEC, BUN, BNP, LIVER, CREA #### [facility] [address] [place] [address] Dr. Brissa Jeffrey 10-08-2021 Urea nitrogen [Mass/Vol] 25.0 mg/dL Critically high 7.0-18.0 [facility] Comment on above: Performed By: #### E LEC, BUN, BNP, LIVER, CREA #### [facility] [address] [place] [address] Dr. Brissa Ma CBC AUTO DIFFon 10-08-2021 BASO # 0.1 103/ul Normal 0.0-0.1 [facility] Comment on above: Performed By: #### C BC #### [facility] [address] [place] [address] Dr. Brissa Ma Basophils/100 WBC (Bld) 0.7 % Normal 0.2-2.0 [facility] Comment on above: Performed By: #### C BC #### [facility] [address] [place] [address] Dr. Brissa Ma EO # 0.1 103/ul Normal 0.0-0.7 [facility] Comment on above: Performed By: #### C BC #### [facility] [address] [place] [address] Dr. Brissa Ma Eosinophils/100 WBC (Bld) 1.8 % Normal 0.9-7.0 [facility] Comment on above: Performed By: #### C BC #### [facility] [address] [place] [address] Dr. Brissa Ma Erythrocyte distribution width (RBC) [Ratio] 14.1 % Normal 11.0-15.0 [facility] Comment on above: Performed By: #### C BC #### [facility] [address] [place] [address] Dr. Brissa Ma Hematocrit (Bld) [Volume fraction] 41.9 % Critically low 42.0-54.0 [facility] Comment on above: Performed By: #### C BC #### [facility] [address] [place] [address] Dr. Brissa Ma Hemoglobin (Bld) [Mass/Vol] 13.3 g/dL Critically low 14.0-18.0 [facility] Comment on above: Performed By: #### C BC #### [facility] [address] [place] [address] Dr. Brissa Ma IG # 0.06 10e3/ul Critically high 0.00-0.03 [facility] Comment on above: Performed By: #### C BC #### [facility] [address] [place] [address] Dr. Brissa Ma IG % 0.9 % Critically high 0.0-0.5 [facility] Comment on above: Performed By: #### C BC #### [facility] [address] [place] [address] Dr. Brissa Ma LYMPH # 2.6 103/ul Normal 1.2-3.8 [facility] Comment on above: Performed By: #### C BC #### [facility] [address] [place] [address] Dr. Brissa Ma Lymphocytes/100 WBC (Bld) 37.8 % Normal 20.5-60.0 [facility] Comment on above: Performed By: #### C BC #### [facility] [address] [place] [address] Dr. Brissa Ma MANUAL DIFF REQ NO Normal [facility] Comment on above: Performed By: #### C BC #### [facility] [address] [place] [address] Dr. Brissa Ma MCH (RBC) [Entitic mass] 30.4 pg Normal 25.9-34.0 [facility] Comment on above: Performed By: #### C BC #### [facility] [address] [place] [address] Dr. Brissa Ma MCHC (RBC) [Mass/Vol] 31.7 g/dL Normal 29.9-35.2 [facility] Comment on above: Performed By: #### C BC #### [facility] [address] [place] [address] Dr. Brissa Ma MCV (RBC) [Entitic vol] 95.7 fL Critically high 80.0-94.0 [facility] Comment on above: Performed By: #### C BC #### [facility] [address] [place] [address] Dr. Brissa Ma MONO # 0.6 103/ul Normal 0.3-0.8 [facility] Comment on above: Performed By: #### C BC #### [facility] [address] [place] [address] Dr. Brissa Ma Monocytes/100 WBC (Bld) 8.4 % Normal 1.7-12.0 [facility] Comment on above: Performed By: #### C BC #### [facility] [address] [place] [address] Dr. Brissa Ma NEUT # 3.4 103/ul Normal 1.4-6.5 [facility] Comment on above: Performed By: #### C BC #### [facility] [address] [place] [address] Dr. Brissa Ma Neutrophils/100 WBC (Bld) 50.4 % Normal 43.0-75.0 [facility] Comment on above: Performed By: #### C BC #### [facility] [address] [place] [address] Dr. Brissa Ma Platelet mean volume (Bld) [Entitic vol] 9.2 fL Critically low 9.5-13.5 [facility] Comment on above: Performed By: #### C BC #### [facility] [address] [place] [address] Dr. Brissa Ma PLT 151 103/ul Normal 150-450 [facility] Comment on above: Performed By: #### C BC #### [facility] [address] [place] [address] Dr. Brissa Ma RBC 4.38 106/ul Critically low 4.70-6.10 [facility] Comment on above: Performed By: #### C BC #### [facility] [address] [place] [address] Dr. Brissa Ma WBC 6.8 103/ul Normal 4.0-11.0 [facility] Comment on above: Performed By: #### C BC #### [facility] [address] [place] [address] Dr. Brissa Ma CREATININEon 10-08-2021 Creatinine [Mass/Vol] 1.30 mg/dL Normal 0.70-1.30 [facility] Comment on above: Performed By: #### E LEC, BUN, BNP, LIVER, CREA #### [facility] [address] [place] [address] Dr. Brissa Ma EGFR-AF CHADIAN >60 Normal >=60 [facility] Comment on above: Performed By: #### E LEC, BUN, BNP, LIVER, CREA #### [facility] [address] [place] [address] Dr. Brissa Ma EGFR-NON AF CHADIAN 53 mL/min/1.73m2 Critically low >=60 [facility] Comment on above: Performed By: #### E LEC, BUN, BNP, LIVER, CREA #### [facility] [address] [place] [address] Dr. Brissa Ma ELECTROLYTESon 10-08-2021 Anion gap [Moles/Vol] 12.3 mmol/L Normal [facility] Comment on above: Performed By: #### E LEC, BUN, BNP, LIVER, CREA #### [facility] [address] [place] [address] Dr. Brissa Ma Chloride [Moles/Vol] 106 mmol/L Normal 98-107 [facility] Comment on above: Performed By: #### E LEC, BUN, BNP, LIVER, CREA #### [facility] [address] [place] [address] Dr. Brissa Ma CO2 [Moles/Vol] 24.3 mmol/L Normal 21.0-32.0 [facility] Comment on above: Performed By: #### E LEC, BUN, BNP, LIVER, CREA #### [facility] [address] [place] [address] Dr. Brissa Ma Potassium [Moles/Vol] 4.6 mmol/L Normal 3.5-5.1 [facility] Comment on above: Performed By: #### E LEC, BUN, BNP, LIVER, CREA #### [facility] [address] [place] [address] Dr. Brissa Ma Sodium [Moles/Vol] 138 mmol/L Normal 136-145 [facility] Comment on above: Performed By: #### E LEC, BUN, BNP, LIVER, CREA #### [facility] [address] [address] [address] Brissa Ma GLYCOHEMOGLOBIN A1Con 2021 ADA RECOMMENDATION SEE BELOW Normal [facility] Comment on above: Result Comment: ADA RECOMMENDED LIMIT 4.0 - 6.0 ADA THERAPEUTIC TARGET < 7.0 ACTION SUGGESTED > 7.0 Performed By: #### A 1C #### [facility] [address] [address] [address] Brissa Ma Glucose [Mass/Vol] 189 mg/dL Normal [facility] Comment on above: Performed By: #### A 1C #### [facility] [address] [place] [address] Dr. Brissa Ma HbA1c (Bld) [Mass fraction] 8.2 % Critically high 4.5-6.2 [facility] Comment on above: Performed By: #### A 1C #### [facility] [address] [place] [address] Dr. Brissa Ma LIPID PROFILEon 10-08-2021 CHOL-HDL RATIO NORM SEE BELOW Normal [facility] Comment on above: Result Comment: 3.3 - 4.4 LOW RISK 4.4 - 7.1 AVERAGE RISK 7.1 - 11.0 MODERATE RISK >11.0 HIGH RISK Performed By: #### C LEELEE, ELEC, LIPID, LIVER, BUN #### [facility] [address] [address] [address] Brissa Ma Cholesterol [Mass/Vol] 75 mg/dL Normal <=200 [facility] Comment on above: Performed By: #### C LEELEE, ELEC, LIPID, LIVER, BUN #### [facility] [address] [address] [address] Brissa Ma Cholesterol in HDL [Mass/Vol] 33 mg/dL Critically low 40-60 [facility] Comment on above: Performed By: #### C LEELEE, ELEC, LIPID, LIVER, BUN #### [facility] [address] [address] [address] Brissa Ma Cholesterol in LDL [Mass/Vol] 22.0 mg/dL Normal [facility] Comment on above: Performed By: #### C LEELEE, ELEC, LIPID, LIVER, BUN #### [facility] [address] [address] [address] Brissa Ma Cholesterol.total/Chol esterol in HDL [Mass ratio] 2.3 {ratio} Normal [facility] Comment on above: Performed By: #### C LEELEE, ELEC, LIPID, LIVER, BUN #### [facility] [address] [address] [address] Brissa Ma HDL NORMAL > or = 60 mg/dl - LO W CARDIOVASCULAR RISK <40 mg/dl - HIGH CARDIOVASCULAR RISK Normal [facility] Comment on above: Performed By: #### C LEELEE, ELEC, LIPID, LIVER, BUN #### [facility] [address] [place] [address] Dr. Brissa Ma LDL CALC NORMAL SEE BELOW Normal [facility] Comment on above: Result Comment: <100 mg/dl OPTIMAL 100 - 129 mg/dl NEAR OR ABOVE OPTIMAL 130 - 159 mg/dl BORDERLINE HIGH 160 - 189 mg/dl HIGH >190 mg/dl VERY HIGH Performed By: #### C LEELEE, ELEC, LIPID, LIVER, BUN #### [facility] [address] [place] [address] Dr. Brissa Ma Triglyceride [Mass/Vol] 100 mg/dL Normal <=150 [facility] Comment on above: Performed By: #### C LEELEE, ELEC, LIPID, LIVER, BUN #### [facility] [address] [place] [address] Dr. Brissa Ma VLDL CALC 20.0 mg/dL Normal [facility] Comment on above: Performed By: #### C LEELEE, ELEC, LIPID, LIVER, BUN #### [facility] [address] [place] [address] Dr. Brissa Ma LIVER PROFILEon 10-08-2021 Albumin [Mass/Vol] 3.4 g/dL Normal 3.4-5.0 [facility] Comment on above: Performed By: #### E LEC, BUN, BNP, LIVER, CREA #### [facility] [address] [place] [address] Dr. Brissa Ma Albumin/Globulin [Mass ratio] 1.0 {ratio} Normal [facility] Comment on above: Performed By: #### E LEC, BUN, BNP, LIVER, CREA #### [facility] [address] [place] [address] Dr. Brissa Ma ALP [Catalytic activity/Vol] 96 U/L Normal 46-116 [facility] Comment on above: Performed By: #### E LEC, BUN, BNP, LIVER, CREA #### [facility] [address] [address] [address] Brissa Ma ALT [Catalytic activity/Vol] 24 U/L Normal 16-63 [facility] Comment on above: Performed By: #### E LEC, BUN, BNP, LIVER, CREA #### [facility] [address] [address] [address] Brissa Ma AST [Catalytic activity/Vol] 14 U/L Critically low 15-37 [facility] Comment on above: Performed By: #### E LEC, BUN, BNP, LIVER, CREA #### [facility] [address] [place] [address] Dr. Brissa Ma BILI, CONJUGATED 0.1 mg/dL Normal 0.0-0.2 [facility] Comment on above: Performed By: #### E LEC, BUN, BNP, LIVER, CREA #### [facility] [address] [address] [address] Brissa Ma Bilirubin [Mass/Vol] 0.4 mg/dL Normal 0.2-1.0 [facility] Comment on above: Performed By: #### E LEC, BUN, BNP, LIVER, CREA #### [facility] [address] [address] [address] Brissa Ma Globulin (S) [Mass/Vol] 3.5 g/dL Normal [facility] Comment on above: Performed By: #### E LEC, BUN, BNP, LIVER, CREA #### [facility] [address] [address] [address] Brissa Ma Protein [Mass/Vol] 6.9 g/dL Normal 6.4-8.2 [facility] Comment on above: Performed By: #### E LEC, BUN, BNP, LIVER, CREA #### [facility] [address] [place] [address] Dr. Brissa Ma Vital Signs Date Time Vital Sign Value Performing Clinician Facility 03-09-2024 15:16-0500 Body height 170.2 cm Stephanie Steward MD Work Phone: [facility] 03-09-2024 15:16-0500 Body mass index (BMI) [Ratio] 28.19 kg/m2 Stephanie Stweard MD Work Phone: [facility] 03-09-2024 15:16-0500 Body weight 81.65 kg Stephanie Steward MD Work Phone: [facility] 03-09-2024 15:16-0500 Diastolic blood pressure 70 mm[Hg] Stephanie Steward MD Work Phone: [facility] 03-09-2024 15:16-0500 Heart rate 68 /min Stephanie Steward MD Work Phone: [facility] 03-09-2024 15:16-0500 Systolic blood pressure 120 mm[Hg] Stephanie Steward MD Work Phone: [facility] 01-18-2024 09:01-0500 Body height 170.2 cm Veda Petznick DO Work Phone: [facility] 01-18-2024 09:01-0500 Body mass index (BMI) [Ratio] 28.19 kg/m2 Veda Petznick DO Work Phone: [facility] 01-18-2024 09:01-0500 Body temperature 98.01 [degF] Veda Petznick DO Work Phone: [facility] 01-18-2024 09:01-0500 Body weight 81.65 kg Veda Petznick DO Work Phone: [facility] 01-18-2024 09:01-0500 Diastolic blood pressure 66 mm[Hg] Veda Petznick DO Work Phone: [facility] 01-18-2024 09:01-0500 Heart rate 92 /min Veda Petznick DO Work Phone: [facility] 01-18-2024 09:01-0500 SaO2% (BldA) [Mass fraction] 94 % Veda Petznick DO Work Phone: [facility] 01-18-2024 09:01-0500 Systolic blood pressure 110 mm[Hg] Veda Petznick DO Work Phone: [facility] 12-10-2023 13:27-0400 Body height 170.2 cm Kennedy Camara DPM Work Phone: [facility] 12-10-2023 13:27-0400 Body mass index (BMI) [Ratio] 28.04 kg/m2 Kennedy Camara DPM Work Phone: [facility] 12-10-2023 13:27-0400 Body weight 81.19 kg Kennedy Camara DPM Work Phone: [facility] 12-10-2023 13:27-0400 Respiratory rate 17 /min Kennedy Camara DPM Work Phone: [facility] 12-03-2023 13:58-0400 Body height 170.2 cm Veda Petznick DO Work Phone: [facility] 12-03-2023 13:58-0400 Body mass index (BMI) [Ratio] 28.16 kg/m2 Veda Petznick DO Work Phone: [facility] 12-03-2023 13:58-0400 Body temperature 96.4 [degF] Veda Petznick DO Work Phone: [facility] 12-03-2023 13:58-0400 Body weight 81.56 kg Veda Petznick DO Work Phone: [facility] 12-03-2023 13:58-0400 Diastolic blood pressure 68 mm[Hg] Veda Petznick DO Work Phone: [facility] 12-03-2023 13:58-0400 Heart rate 74 /min Veda Petznick DO Work Phone: [facility] 12-03-2023 13:58-0400 SaO2% (BldA) [Mass fraction] 98 % Veda Petznick DO Work Phone: [facility] 12-03-2023 13:58-0400 Systolic blood pressure 102 mm[Hg] Veda Petznick DO Work Phone: [facility] 07-24-2023 13:40-0400 Body height 167.6 cm Henrry Issa MD Work Phone: [facility] 07-24-2023 13:40-0400 Body mass index (BMI) [Ratio] 30.02 kg/m2 Henrry Issa MD Work Phone: [facility] 07-24-2023 13:40-0400 Body weight 84.37 kg Henrry Issa MD Work Phone: [facility] 07-24-2023 13:40-0400 Diastolic blood pressure 74 mm[Hg] Henrry Issa MD Work Phone: [facility] 07-24-2023 13:40-0400 Heart rate 82 /min Henrry Issa MD Work Phone: [facility] 07-24-2023 13:40-0400 Systolic blood pressure 134 mm[Hg] Henrry Issa MD Work Phone: [facility] 04-08-2023 13:24-0500 Body height 170.2 cm Negro BROOKS Work Phone: [facility] 04-08-2023 13:24-0500 Body mass index (BMI) [Ratio] 28.19 kg/m2 Negro Brown PA Work Phone: [facility] 04-08-2023 13:24-0500 Body weight 81.65 kg Negro Brown PA Work Phone: [facility] 01-14-2023 14:28-0500 Body height 170.2 cm Henrry Issa MD Work Phone: [facility] 01-14-2023 14:28-0500 Body mass index (BMI) [Ratio] 30.07 kg/m2 Henrry Issa MD Work Phone: [facility] 01-14-2023 14:28-0500 Body weight 87.09 kg Henrry Issa MD Work Phone: [facility] 01-14-2023 14:28-0500 Diastolic blood pressure 60 mm[Hg] Henrry Issa MD Work Phone: [facility] 01-14-2023 14:28-0500 Heart rate 92 /min Henrry Issa MD Work Phone: [facility] 01-14-2023 14:28-0500 Systolic blood pressure 106 mm[Hg] Henrry Issa MD Work Phone: [facility] 01-02-2023 11:43-0400 Body mass index (BMI) [Ratio] 30.4 kg/m2 JR Hugo Moser Work Phone: [facility] 12-31-2022 13:51-0400 Diastolic blood pressure 70 mm[Hg] JR Hugo Moser Work Phone: [facility] 12-31-2022 13:51-0400 Heart rate 83 /min JR Hugo Moser Work Phone: [facility] 12-31-2022 13:51-0400 Respiratory rate 14 /min JR Hugo Moser Work Phone: [facility] 12-31-2022 13:51-0400 SaO2% (BldA) [Mass fraction] 98 % JR Hugo Moser Work Phone: [facility] 12-31-2022 13:51-0400 Systolic blood pressure 112 mm[Hg] JR Hugo Moser Work Phone: [facility] 12-31-2022 12:00-0400 Body temperature 97.8 [degF] JR Hugo Moser Work Phone: [facility] 12-31-2022 06:00-0400 Body weight 86.5 kg JR Hugo Moser Work Phone: [facility] 12-30-2022 15:37-0400 Inhaled oxygen flow rate 6 L/min JR Hugo Moser Work Phone: [facility] 12-30-2022 15:12-0400 Body height 170.18 cm JR Hugo Moser Work Phone: [facility] 12-30-2022 15:12-0400 Body mass index (BMI) [Ratio] 30.4 kg/m2 JR Hugo Moser Work Phone: [facility] Encounters Encounter Date Encounter Type Care Provider Facility Start: 04-18-2024 End: 04-18-2024 ambulatory VEDA ROME Not Available Start: 04-15-2024 End: 04-15-2024 Telephone encounter Veda Rome DO Work Phone: [facility] 230 Comment on above: Appointment Confirma tion Start: 04-15-2024 End: 04-15-2024 Patient encounter procedure Hugo Moser JR Work Phone: [facility] Start: 04-15-2024 End: 04-15-2024 ambulatory Hugo Moser JR Work Phone: [facility] Work Phone: Start: 04-15-2024 Non-patient / Non-visit Melvin clay Shanti VALDEZ Work Phone: [facility] Start: 03-09-2024 End: 03-09-2024 Office outpatient visit 25 minutes Stephanie Steward MD Work Phone: [facility] Comment on above: Pacemaker (Primary D x); AV block, Mobitz II; Mixed hyperlipidemia; Paroxysmal atrial fibrillation (Multi); Mild tricuspid regurgitation; Diabetes mellitus type II, non insulin dependent (Multi); BMI 28.0-28.9,adult; Never smoked tobacco; Overweight Start: 03-09-2024 End: 03-09-2024 ambulatory [facility] Ambulatory Start: 02-17-2024 End: 02-17-2024 Bamboo flowsheet Gini Elias Stepanic DO Work Phone: [facility] Start: 02-17-2024 End: 02-17-2024 Bamboo flowsheet Gini Elias Stepanic DO Work Phone: [facility] Start: 02-17-2024 End: 02-17-2024 Office outpatient visit 15 minutes Gini Elias Stepanic DO Work Phone: [facility] Comment on above: Rotator cuff arthrop athy, right (Primary Dx); Shoulder arthritis Start: 02-17-2024 End: 02-17-2024 ambulatory GINI RAMIRES Not Available Start: 01-18-2024 End: 01-18-2024 Bamboo flowsheet Veda Oglesbysandraines DO Work Phone: [facility] Start: 01-18-2024 End: 01-18-2024 Bamboo flowsheet Veda Salazarick DO Work Phone: [facility] Start: 01-18-2024 End: 01-18-2024 Office outpatient visit 25 minutes Veda Oglesbysandraines DO Work Phone: [facility] Comment on above: Type 2 diabetes enriqueta 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, without long-term current use of insulin (HCC) (CMS/HCC); Type 2 diabetes mellitus with hyperglycemia, without long-term current use of insulin (CMS/HCC) Start: 01-18-2024 End: 01-18-2024 ambulatory VEDA Arevalo LATRICIA Not Available Start: 01-15-2024 End: 01-15-2024 ambulatory [facility] Facility:[facility] Start: 01-15-2024 Non-patient / Non-visit [facility] Start: 01-14-2024 End: 01-14-2024 Telephone encounter Veda Mickey Salazarick DO Work Phone: [facility] Start: 12-10-2023 End: 12-10-2023 Bamboo flowsheet Kennedy Camara DPM Work Phone: [facility] Start: 12-10-2023 End: 12-10-2023 Bamboo flowsheet Kennedy Camara DPM Work Phone: [facility] Start: 12-10-2023 End: 12-10-2023 Patient encounter procedure Kennedy Camara DPM Work Phone: [facility] Comment on above: Type 2 diabetes enriqueta itus without complication, unspecified whether penitentiary insulin use (CMS/[facility]) (Primary Dx); Pain due to onychomycosis of toenails of both feet Start: 12-10-2023 End: 12-10-2023 ambulatory KENNEDY CAMARA Not Available Start: 12-03-2023 End: 12-03-2023 Office outpatient new 45 minutes Veda Rome DO Work Phone: [facility] 230 Comment on above: Type 2 diabetes enriqueta 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, without long-term current use of insulin (HCC) (CMS/[facility]) (Primary Dx); Type 2 diabetes mellitus with hyperglycemia, without long-term current use of insulin (CMS/[facility]) Start: 12-03-2023 End: 12-03-2023 ambulatory VEDA Arevalo LATRICIA Not Available Start: 12-02-2023 End: 12-02-2023 Telephone encounter [facility] DO [facility] Start: 12-01-2023 Non-patient / Non-visit [facility] Start: 10-16-2023 End: 10-16-2023 Patient encounter procedure JR Hugo Moser Work Phone: [facility] Start: 10-16-2023 End: 10-16-2023 ambulatory JR Hugo Moser Work Phone: [facility] Work Phone: Start: 08-17-2023 End: 08-17-2023 ambulatory GINI RAMIRES Not Available Start: 07-24-2023 End: 07-24-2023 Office outpatient visit 25 minutes Henrry Issa MD Work Phone: [facility] Comment on above: Non-ischemic cardiom yopathy (Multi) (Primary Dx); AV block, Mobitz II; Pacemaker; Mixed hyperlipidemia; BMI 30.0-30.9,adult Start: 07-24-2023 End: 07-24-2023 ambulatory HENRRY Syed [facility] Start: 07-15-2023 End: 07-15-2023 [facility] Start: 05-11-2023 End: 05-11-2023 ambulatory GINI RAMIRES Not Available Start: 04-15-2023 End: 04-15-2023 ambulatory JR Hugo Moser Work Phone: [facility] Work Phone: Start: 04-15-2023 End: 04-15-2023 Patient encounter procedure JR Arias Shanti Work Phone: [facility] Start: 04-08-2023 End: 04-08-2023 Office outpatient new 45 minutes Negro BROOKS Work Phone: [facility] Comment on above: Acute pain of right shoulder; Rotator cuff arthropathy, right; Arthritis of right acromioclavicular joint Start: 01-14-2023 End: 01-14-2023 Office outpatient visit 25 minutes Henrry Issa MD Work Phone: [facility] Comment on above: AV block, Mobitz II; Pacemaker; Obesity (BMI 30.0-34.9) Start: 01-08-2023 End: 01-08-2023 ambulatory JR Hugo Moser Work Phone: [facility] Work Phone: Start: 01-08-2023 End: 01-08-2023 Patient encounter procedure JR Hugo Moser Work Phone: [facility] Work Phone: Start: 12-28-2022 End: 12-31-2022 Evaluation and management of inpatient JR Hugo Moser Work Phone: [facility] Work Phone: Start: 05-19-2022 End: 05-20-[address] HUGO MOSER Facility:[facility] Start: 01-22-2022 End: 01-23-[address] HUGO MOSER Facility:[facility] Start: 10-09-2021 Encounter for genera l adult medical examination without abnormal findings DR HUGO MOSER [facility] Start: 10-08-2021 End: 10-09-[address] [...] Start: 04-15-2023 Plain chest X-ray JR Haven yeimy Shanti Work Phone: Start: 04-08-2023 End: 04-08-2023 Arthrocentesis aspir&/inj major jt/bursa w/o us Negro BROOKS Work Phone: Start: 01-08-2023 Plain chest X-ray JR Haven yeimymolina Moser Work Phone: Start: 12-31-2022 Plain chest X-ray JR Haven yeimy Shanti Work Phone: Start: 12-30-2022 Plain chest X-ray JR Haven yeimy Shanti Work Phone: Start: 12-30-2022 Implantation of card iac pacemaker JR Hugo Moser Work Phone: Plan of Treatment Date Care Activity Detail Author Start: 11-09-2024 End: 11-09-2024 Patient encounter procedure 11/09/2024 11:00 AM EDT Office Visit [facility] [address] [place] [address] Stephanie Steward MD [address] [facility] [address] [place] [address] [facility] Start: 04-18-2024 End: 04-18-2024 Patient encounter procedure 04/18/2024 1:00 PM EST Office Visit [facility] [address] [place] [phone] Veda Rome, DO [address] [place] [address] [facility] Start: 03-09-2024 End: 03-09-2024 Patient encounter procedure 03/09/2024 10:50 AM EST Office Visit [facility] [address] [place] [address] Stephanie Steward MD [address] [facility] [address] [place] [address] [facility] Start: 02-17-2024 End: 02-17-2024 Patient encounter procedure [facility] Comment on above: Arrived Start: 01-15-2024 End: 01-15-2024 Patient encounter procedure 01/15/2024 2:00 PM EST Office Visit [facility] [address] [place] [phone] Veda Rome, DO [address] [place] [address] [facility] Start: 12-10-2023 End: 12-10-2023 Patient encounter procedure [facility] Comment on above: Type 2 diabetes enriqueta itus without complication, 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 ([facility]) (Primary Dx); Pain due to onychomycosis of toenails of both feet Start: 12-03-2023 End: 12-03-2023 Patient encounter procedure 12/03/2023 2:00 PM EDT Office Visit [facility] [address] [place] [phone] Veda Rome, DO [address] [place] [address] [facility] 230 Start: 11-01-2023 COVID-19 Vaccine ( season) COVID-19 Vaccine () [facility] Start: 11-01-2023 Influenza vaccination [facility] Start: 07-24-2023 End: 07-24-2023 Patient encounter procedure 07/24/2023 1:40 PM EDT Office Visit [facility] [address] [place] [address] Henrry Issa MD [address] [place] [address] [facility] Start: 05-11-2023 End: 05-11-2023 Patient encounter procedure 05/11/2023 10:45 AM EDT Office Visit [facility] [address] [place] [phone] Jr. Gini Cárdenas C, DO [address] [place] [address] [facility] Start: 12-31-2022 [facility] Start: 12-30-2022 [facility] Start: 12-28-2022 Insertion of Pacemak er Lead into Right Atrium, Percutaneous Approach Insertion of Pacemaker Lead into Right Atrium, Percutaneous Approach [facility] Start: 12-28-2022 Insertion of Pacemak er Lead into Right Ventricle, Percutaneous Approach Insertion of Pacemaker Lead into Right Ventricle, Percutaneous Approach [facility] Start: 12-28-2022 Insertion of Pacemak er, Dual Chamber into Chest Subcutaneous Tissue and Fascia, Open Approach Insertion of Pacemaker, Dual Chamber into Chest Subcutaneous Tissue and Fascia, Open Approach [facility] Start: 12-28-2022 Hospital admission [facility] Start: 12-28-2022 Referral to wafer cleaner [facility] Start: 10-31-2022 COVID-19 Vaccine ( season) COVID-19 Vaccine ( season) [facility] Start: 10-31-2022 Influenza vaccination Influenza Vacc ine (#1) [facility] Start: 02-05-2022 COVID-19 Vaccine (4 - Moderna series) COVID-19 Vaccine (4 - Moderna series) [facility] Start: 05-18-2019 Pneumococcal vaccination Pneum ococcal Vaccine (2 of 2 - PCV) [facility] Start: 05-18-2019 Pneumococcal Vaccine : 65+ Years (2 - PCV) Pneumococcal Vaccine: 65+ Years (2 - PCV) [facility] Start: 05-18-2019 Pneumococcal Vaccine : 65+ Years (2 of 2 - PCV) Pneumococcal Vaccine: 65+ Years (2 of 2 - PCV) [facility] Start: 08-18-2014 RSV High Risk: (Elde rly (60+) or Population) (1 - 1-dose 75+ series) RSV High Risk: (Elderly (60+) or Population) (1 - 1-dose 75+ series) [facility] Start: 1999 RSV patient s and/or patients aged 60+ years (1 - 1-dose 60+ series) RSV patients and/or patients aged 60+ years (1 - 1-dose 60+ series) [facility] Start: 08-18-1989 Zoster Vaccines (1 of 2) Zoste r Vaccines (1 of 2) [facility] Start: 08-18-1961 DTaP/Tdap/Td Vaccine s (1 - Tdap) DTaP/Tdap/Td Vaccines (1 - Tdap) [facility] Start: 08-18-1958 Urine screening for protein Diabetes: Urine Protein Screening [facility] Start: 08-18-1949 Diabetic foot examination Diabetes: Foot Exam [facility] Start: 08-18-1949 Glaucoma screening Diabetes: R etinopathy Screening [facility] Start: 1940 Hemoglobin A1c measurement Diabetes: Hemoglobin A1C [facility] Start: 1939 Lipid panel Lipid Panel [facility] Start: 1939 Medicare Annual Well ness Visit Medicare Annual Wellness Visit (AWV) [facility] Start: 1939 Urine screening for protein Diabetes: Urine Protein Screening [facility] Patient Education Clindamycin (Systemic) [facility] Work Phone: Patient referral [facility] Work Phone: XR Shoulder - right 2 Views XR shoulder 2+ views right Imaging Routine Acute pain of right shoulder 04/08/2023 1:21 PM EST [facility] Work Phone: Immunizations Immunization Date Immunization Notes Care Provider Fa [facility] 12-11-2021 Moderna COVID-19 vaccine, bivalent, blue cap/goff label *Check age/dose* Henrry Issa MD Work Phone: [facility] 01-31-2021 influenza, injectabl e, quadrivalent, preservative free Henrry Issa MD Work Phone: [facility] Work Phone: 01-31-2021 influenza virus vacc ine, unspecified formulation Henrry Issa MD Work Phone: [facility] Work Phone: 05-17-2018 influenza, injectabl e, quadrivalent, preservative free Henrry Issa MD Work Phone: [facility] Work Phone: 05-17-2018 pneumococcal polysaccharide vaccine, 23 valent Henrry Issa MD Work Phone: [facility] Work Phone: Payers Date Payer Category Payer Self-pay 2023 Private Health Insurance [employer] mber [id number] 2022 Medicare supplementa l policy (as second payer) [employer] [id number] 2022 Unknown [id number] 2004 Medicare [id number] 1959 Medicare [id number] 1959 Unknown [id number] 1939 Unknown [id number] [id number]. 2.593 1939 Unknown [id number] 2.16.840.1.460763.3.579. 2.593 1939 Unknown [id number] 2.16.840.1.091108.3.579. 2.593 1939 Unknown [id number] 2.16.840.1.245311.3.579. 2.1244 1939 Unknown [id number] 2.16.840.1.304278.3.579. 2.1244 1939 Unknown [id number] 2.16.840.1.450414.3.579. 2.1259 1939 Unknown [id number] 2.16.840.1.905275.3.579. 2.1259 1939 Unknown [id number] 2.16.840.1.841186.3.579. 2.9 1939 Unknown [id number] 2.16.840.1.034841.3.579. 2.1259 1939 Unknown [id number] 2.16.840.1.443387.3.579. 2.1259 1939 Unknown [id number] 2.16.840.1.098837.3.579. 2.1259 1939 Unknown [id number] 2.16.840.1.576458.3.579. 2.1259 Unknown [id number] 2.16.840.1.478085.3.579. 2.531 Unknown [id number] 2.16.840.1.685572.3.579. 2.531 Unknown [id number] 2.16.840.1.508284.3.579. 2.531 Unknown [id number] [id number]. 2.531 Social History Date Type Detail Facility Start: 12-30-2022 End: 12-30-2022 Tobacco smoking status NHIS Never smoked tobacco (finding) [facility] Start: 1940 Sex Assigned At Male F [facility] Start: 01-14-2023 End: 04-08-2023 Tobacco use and exposure Smokeless tobacco non-user [facility] Work Phone: Start: 01-14-2023 End: 03-09-2024 Alcohol intake Lifetime non-drinker (finding) [facility] Work Phone: Start: 01-14-2023 End: 01-18-2024 History of Social function [facility] Work Phone: Start: 01-14-2023 End: 01-18-2024 Tobacco use panel [facility] Work Phone: Start: 1940 Sex Assigned At Not on file [facility] Work Phone: Start: 01-04-2023 End: 03-09-2024 Exposure to SARS-CoV-2 (event) Not sure [facility] Start: 04-08-2023 End: 12-10-2023 Alcohol intake Current drinker of alcohol (finding) [facility] Start: 01-19-2024 End: 04-16-2024 Sex Male (finding) [facility] Start: 01-18-2024 End: 02-17-2024 Alcoholic beverage intake Ex-drinker (finding) [facility] How often to you hav e a drink containing alcohol? Never [facility] How many standard drinks containing alcohol do you have on a typical day? Patient does not drink [facility] Medical Equipment Procedure Code Equipment Code Equipment Origin al Text Equipment Identifier Dates Insertion, pacemaker Endocardial pacing lead [id number] FDA Start: 12-30-2022 Insertion, pacemaker Endocardial pacing lead [id number] FDA Start: 12-30-2022 Insertion, pacemaker Dual-chamber implantable pacemaker, rate-responsive [id number] FDA Start: 12-30-2022 Goals Date Patient Goal Desired Activity /State Functional Status Date Assessment Result Facility 12-31-2022 Functional status Patient at Baseline [facility] Work Phone: Mental Status Date Assessment Result Facility 12-31-2022 Cognitive function Cognitive Sta tus Patient at Baseline [facility] Work Phone: Clinical Notes 12-28-2022 to 04-15-2024 Telephone Encounter - Elba Platt - 04/15/2024 1:06 PM ESTTelephone Encounter - Elba Platt - 04/15/2024 1:06 PM Smiley Steward MD - 03/09/2024 3:20 PM ESTPatient Instructions Note Date & Type Note Facility 04-15-2024 Telephone encounter Note LVM appointment reminder [facility] 04-15-2024 Miscellaneous Notes LVM appointment reminder documented in this encounter [facility] 03-09-2024 History of Present illness Narrative Karen Anderson is a 83 y.o. male Chief Complaint [...] have been followed by his PCP. Assessment/recommendations: [id number] AV block status post permanent pacemaker 2022 [...] By signing my name below, I, Ashtyn K RN , Scribe attest that this documentation [...] discussion and plan. documented in this encounter [facility] Work Phone: 03-09-2024 Instructions Ashtyn [...] up per routine documented in this encounter [facility] Work Phone: 02-17-2024 History of Present illness Narrative Images from the original note were not included. HISTORY OF PRESENT ILLNESS: EST PT Emmanuel Anderson is an 83 y.o. @ male. (EST [...] requiring urgent evaluation. documented in this encounter [facility] 01-18-2024 History of Present illness Narrative Associated Problem(s): Type 2 diabetes mellitus with hyperglycemia, without long-term current use of insulin ([facility]) During the appointment today all pertinent labs, [...] they have any problems or questions. Emmanuel Anderson is struggling to gain control of their diabetes. I am very concerned for diabetes related complications. , Instructions given today include: Hypoglycemia management and Insulin instructions. Will add basal insulin to improve control. He is to call if the numbers are not coming down. Images from the original note were not included. Emmanuel Anderson is a 83 y.o. male presents with chief complaint of Diabetes HPI: Diabetes Mellitus Follow-up: Emmanuel Anderson is here for follow-up evaluation of diabetes [...] without long-term current use of insulin (HCC) ([facility]) Social History Tobacco Use Smoking status: Never [...] hyperglycemia, without long-term current use of insulin ([facility]) During the appointment today all pertinent labs, [...] they have any problems or questions. Emmanuel Anderson is struggling to gain control of their diabetes. I am very concerned for diabetes related complications. , Instructions given today include: Hypoglycemia management and Insulin instructions. Will add basal insulin to improve control. He is to call if the numbers are not coming down. Type 2 diabetes mell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, without long-term current use of insulin ([facility]) ([facility]) Relevant Medications insulin glargine (Lantus SoloStar) 100 [...] the patient today. documented in this encounter [facility] 01-14-2024 Telephone encounter Note noted [facility] 01-14-2024 Miscellaneous Notes noted P/c to remind pt of appointment. Pt had to reschedule because his has testing all day tomorrow. Rescheduled for Thursday at 9:15. He voiced understanding documented in this encounter [facility] 01-14-2024 Telephone encounter Note P/c to remind pt of appointment. Pt had to reschedule because his has testing all day tomorrow. Rescheduled for Thursday at 9:15. He voiced understanding [facility] 12-10-2023 History of Present illness Narrative Patient: Emmanuel Anderson : 1940 PCP: Hugo Moser MD SUBJECTIVE [...] History: Past Medical History: Diagnosis Date Diabetes ([facility]) Hx of deep venous thrombosis Hyperlipemia ([facility]) Hypertension ([facility]) Medications: Current Outpatient Medications: empagliflozin (Jardiance) 25 [...] Negative palpable pedal pulses bilaterally NEURO: 5.07 Thorofare Claudia monofilament test intact to digits and forefoot bilaterally 125Hz tuning fork diminished to 1st MPJ bilaterally ORTHO: Positive pain on palpation to nails 1 through 10 ASSESSMENT 1. 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 Pain due to onychomycosis of toenails [...] Kennedy Camara DPM documented in this encounter [facility] 12-03-2023 History of Present illness Narrative Associated Problem(s): Type 2 diabetes mellitus with hyperglycemia, without long-term current use of insulin ([facility]) During the appointment today all pertinent labs, [...] they have any problems or questions. Emmanuel Anderson blood sugars are worsening. , Discussed dietary [...] the original note were not included. Emmanuel Anderson is a 83 y.o. male presents with [...] occasion (cinnamon toast crunch- low sugar) Lunch: [place] (ham), fruit (peaches, pears, melon) Dinner: Varies- [...] without long-term current use of insulin (CMS/[facility]) HTN (hypertension) ([facility]) Mixed hyperlipidemia (CMS/HCC) Mobitz type II atrioventricular block Localized, primary osteoarthritis of hand DVT (deep venous thrombosis) (CMS/HCC) Non-ischemic cardiomyopathy ([facility]) Pacemaker Type 2 diabetes mell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, without long-term current use of insulin ([facility]) ([facility]) Social History Tobacco Use Smoking status: Never [...] hyperglycemia, without long-term current use of insulin ([facility]) During the appointment today all pertinent labs, [...] without long-term current use of insulin (HCC) ([facility]) - Primary Relevant Medications empagliflozin (Jardiance) 25 [...] the patient today. documented in this encounter [facility] 12-02-2023 Telephone encounter Note Pt's answered the phone. Reminded her of her 's appointment tomorrow with Dr. Mccollum. voiced understanding [facility] 12-02-2023 Miscellaneous Notes Pt's answered the phone. Reminded her of her 's appointment tomorrow with Dr. Mccollum. voiced understanding documented in this encounter [facility] 07-24-2023 History of Present illness Narrative Karen Anderson [...] discussion and plan. documented in this encounter [facility] Work Phone: 07-24-2023 Instructions Sal [...] of your visit. documented in this encounter [facility] Work Phone: 04-08-2023 History of [...] with 2ml of 2 % lidocaine (Code 14767 RT) Procedure, treatment alternatives, risks and benefits [...] evaluation. 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 Driver documented in this encounter [facility] 01-14-2023 History of Present illness Narrative Karen [...] Obesity (BMI 30.0-34.9) documented in this encounter [facility] Work Phone: 01-14-2023 Instructions Lupe [...] up per routine documented in this encounter [facility] Work Phone: 12-31-2022 Progress note Note Date/Time December 31, 2022 10:25am [facility] [address] [place] [address] Cardiology Progress Note Signed Patient: Emmanuel Anderson MR#: [id number] : 1940 Acct:[id number] Age/Sex: 82 / M Adm Date: 3 Loc: Room: [address] [place] [address] Type: ADM IN Attending Dr: Katie Osborne [...] % (Auto) 61.2 Lymph % (Auto) 27.7 [place] % (Auto) 8.9 Eos % (Auto) 1.6 Baso % (Auto) 0.6 Nucleat RBC Rel Count 0.0 Neut # (Auto) 4.1 Lymph # (Auto) 1.9 [place] # (Auto) 0.6 Eos # (Auto) 0.1 Baso # (Auto) 0.0 PHA Creatinine Clear Sodium Potassium Chloride Carbon Dioxide Anion Gap BUN Creatinine Est GFR (CKD-EPI) Glucose POC Glucose 206 183 Calcium Magnesium 12/31/22 06:36 Corrected WBC Uncorrected WBC Count RBC Hgb Hct MCV MCH MCHC RDW Plt Count MPV Neut % (Auto) Lymph % (Auto) [place] % (Auto) Eos % (Auto) Baso % (Auto) Nucleat RBC Rel Count Neut # (Auto) Lymph # (Auto) [place] # (Auto) Eos # (Auto) Baso # [...] clinic as scheduled. Follow-up with his primary wafer cleaner Dr. Hugo Moser henceforth Documented By: Henrry Issa MD 1023 Signed By: <Electronically signed by MD Henrry Issa> 12/31/22 1033 [facility] Work Phone: 1(216) 385-993810-31-2023 Progress note Author Katie Osborne [facility] December 30, 2022 2:12pm Note Date/Time December 30, 2022 2 :12pm [facility] [address] [place] [address] Hospitalist Progress Note Signed Patient: Emmanuel Anderson MR#: [id number] : 1940 Acct:[id number] Age/Sex: 82 / M Adm Date: 3 Loc: 3T Room: [address] [place] [address] Type: ADM IN Attending Dr: Katie Osborne MD Copies to: ~ Date of Service: 12/30/2022 Subjective Subjective Narrative: Patient was seen and evaluated at bedside this morning. playground monitor was reviewed, patient continued to have [...] Plan: ? Patient's baseline is unknown, at [place] his creatinine is 1.6, today here it is 1.4 ? Patient did receive atropine at [place], his heart rate has been improved while [...] <Electronically signed by Katie Osborne MD> 12/30/22 [facility] Work Phone: 1(733) 634-581310-30-2023 Progress note Author Henrry Issa [facility] December 29, 2022 2:16pm Note Date/Time December 29, 2022 2 :16pm [facility] [address] [place] [address] Cardiology Progress Note Signed Patient: Emmanuel Anderson MR#: [id number] : 1940 Acct:[id number] Age/Sex: 82 / M Adm Date: 3 Loc: Room: [address] [place] [address] Type: ADM IN Attending Dr: Katie Osborne [...] block. Intermittently he is conducting in a [id number]. No observed manifestations of complete heart block. [...] % (Auto) 48.1 Lymph % (Auto) 41.3 [place] % (Auto) 8.4 Eos % (Auto) 1.4 Baso % (Auto) 0.8 Nucleat RBC Rel Count 0.1 Neut # (Auto) 3.6 Lymph # (Auto) 3.1 [place] # (Auto) 0.6 Eos # (Auto) 0.1 [...] MPV Neut % (Auto) Lymph % (Auto) [place] % (Auto) Eos % (Auto) Baso % (Auto) Nucleat RBC Rel Count Neut # (Auto) Lymph # (Auto) [place] # (Auto) Eos # (Auto) Baso # [...] <Electronically signed by MD Henrry Issa> 12/29/22 1412 [facility] Work Phone: 1(227) 457-543710-30-2023 Progress note Author Katie Osborne [facility] December 29, 2022 1:57pm Note Date/Time December 29, 2022 1 :57pm [facility] [address] [place] [address] Hospitalist Progress Note Signed Patient: Emmanuel Anderson MR#: [id number] : 1940 Acct:[id number] Age/Sex: 82 / M Adm Date: 3 Loc: 3T Room: [address] [place] [address] Type: ADM IN Attending Dr: Katie Osborne MD Copies to: ~ Date of Service: 12/29/2022 Subjective Subjective Narrative: Patient was seen and evaluated at bedside this morning. playground monitor was reviewed, patient continued to have [...] Tablet PO 12/29/23 07:59 Not Given DAILY.WITH.BKFAST [facility] Acetaminophen 650 mg 12/28/22 10:54 Acetaminophen 325 [...] Plan: ? Patient's baseline is unknown, at [place] his creatinine is 1.6, today here it is 1.4 ? Patient did receive atropine at [place], his heart rate has been improved while [...] <Electronically signed by Katie Osborne MD> 12/29/22 6843 [facility] Work Phone: 1(476) 969-180410-29-2023 Consult note Author Haylee Benedict [facility] December 28, 2022 7:25pm Note Date/Time December 28, 2022 7 :22pm [facility] [address] [place] [address] Cardiology Consult Note Signed Patient: Emmanuel Anderson MR#: [id number] : 1940 Acct:[id number] Age/Sex: 82 / M Adm Date: 3 Loc: Room: [address] [place] [address] Type: ADM IN Attending Dr: Jarred Cline [...] negative unless noted below or in HPI [facility] Social History Smoking Status: Never smoker [...] blockers. Assessment: Symptomatic high-grade AV block/AVN dysfunction AZC Diabetes Hypertension Recommendations: -Given symptomatic high-grade AV block, will consult with Dr. Issa for PPM placement. Keep n.p.o. past midnight. -Check 2D echocardiogram. -Avoid AV cici blockers. -Continue monitoring on telemetry. Documented By: Haylee Benedict MD 12/28/22 1216 Signed By: <Electronically signed by Haylee Benedict MD> 12/28/221924 [facility] Work Phone: 1(295) 748-321210-29-2023 History and physical note Author Jarred Cline [facility] December 28, 2022 1:36pm Note Date/Time December 28, 2022 1 :21pm [facility] [address] [place] [address] Hospitalist H&P Signed Patient: Emmanuel Anderson MR#: [id number] : 1940 Acct:[id number] Age/Sex: 82 / M Adm Date: 3 Loc: Room: [address] [place] [address] Type: ADM IN Attending Dr: Jarred Cline DO Copies to: Hugo Moser Jr, DO Jarred Cline, DO~ HPI DATE OF EXAMINATION: 12/28/22 CHIEF COMPLAINT: low heart rate HISTORY OF PRESENT ILLNESS: Mr Anderson is an 82-year-old male with past medical history of diabetes and hypertension who presents hospital today with chief complaint of low heart rate. He was transferred here from [facility], he has been feeling exertional dyspnea for [...] to the emergency room. He went to [place] [facility] was then transferred back here due to there being no cardiology services at [place]. Patient denies any cough with his shortness [...] Allergies No Known Drug Allergies Allergy (Verified 10/29/23 10:05) Unknown Reaction Home Medications acarbose 100 [...] Plan: ? Patient's baseline is unknown, at [place] his creatinine is 1.6, today here it is 1.4 ? Likely secondary to decreased perfusion from bradycardia ? Patient did receive atropine at [place], his heart rate has been improved while [...] <Electronically signed by Jarred Cline DO> 12/28/22 5111 [facility] Work Phone: Discharge summary Author Katie Osborne [facility] December 31, 2022 12:42pm Note Date/Time December 31, 2022 1 2:43pm [facility] [address] [place] [address] Discharge Summary Signed Patient: Emmanuel Anderson MR#: [id number] : 1940 Acct:[id number] Age/Sex: 82 / M Adm Date: 3 Loc: Room: [address] [place] [address]: Katie Osborne MD Copies to: [...] heart rate. He was transferred here from [facility], he has been feeling exertional dyspnea for [...] % (Auto) 61.2, Lymph % (Auto) 27.7, [place] % (Auto) 8.9, Eos % (Auto) 1.6, Baso % (Auto) 0.6, Nucleat RBC Rel Count 0.0, Neut # (Auto) 4.1, Lymph # (Auto) 1.9, [place] # (Auto) 0.6, Eos # (Auto) 0.1, [...] with nurse for incision check in the [facility] Office on - we will call you. 2. Chest x-ray to be done the same day as your device check at [facility] 04/15/2023. 3. Pacemaker/ICD clinic appointment at [facility] on 04/15/2023 at 11:00am . 4. Office [...] signed by Katie Osborne MD> 12/31/22 1242 [facility] Work Phone: Evaluation note* Diagnosis Onset Date Resolution Status ZAC (acute kidney injury) ac [place] Diabetes mellitus acute HTN (hypertension) acute Mobitz type 2 second degree AV block acute [facility] Work Phone: Evaluation note* Diagnosis AV block, Mobitz II Mobitz (type) II atrioventricular block Pacemaker Cardiac pacemaker in situ Obesity (BMI 30.0-34.9) documented in this encounter [facility] Work Phone: Evaluation note* Diagnosis Acute pain of right shoulder Rotator cuff arthropathy, right Arthritis of right acromioclavicular joint documented in this encounter [facility] HealthcareEvaluation noteNo assessment information availableHolzer Hospital Work Phone: Evaluation note* Diagnosis Non-ischemic cardiomyopathy (Multi)- Primary Other primary cardiomyopathies AV block, Mobitz II Mobitz (type) II atrioventricular block Pacemaker Cardiac pacemaker in situ Mixed hyperlipidemia BMI 30.0-30.9,adult documented in this encounter [facility] Work Phone: Evaluation note* Diagnosis Type 2 diabetes mell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, without long-term current use of insulin (HCC) ([facility]/HCC)- Primary Type 2 diabetes mellitus with hyperglycemia, without long-term current use of insulin ([facility]) documented in this encounter [facility] HealthcareEvaluation note* Diagnosis Type 2 diabetes mellitus without complication, 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 ([facility])- Primary Pain due to onychomycosis of toenails of both feet documented in this encounter [facility] HealthcareEvaluation note* Diagnosis Type 2 diabetes mell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, without long-term current use of insulin (HCC) ([facility])- Primary Type 2 diabetes mellitus with hyperglycemia, without long-term current use of insulin ([facility]) Type 2 diabetes mell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, without long-term current use of insulin (HCC) ([facility]) Type 2 diabetes mellitus with hyperglycemia, without long-term current use of insulin ([facility]) documented in this encounter [facility] HealthcareEvaluation note* Diagnosis Type 2 diabetes mell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, without long-term current use of insulin (HCC) ([facility])- Primary Type 2 diabetes mellitus with hyperglycemia, without long-term current use of insulin ([facility]) Type 2 diabetes mell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, without long-term current use of insulin (HCC) ([facility]) Type 2 diabetes mellitus with hyperglycemia, without long-term current use of insulin ([facility]) Rotator cuff arthropathy, right- Primary Shoulder arthritis Unspecified arthropathy, shoulder region documented in this encounter [facility] HealthcareEvaluation note* Diagnosis Pacemaker- Primary [...] smoked tobacco Overweight documented in this encounter [facility] Work Phone: Hospital Discharge instructions [...] with nurse for incision check in the [facility] Office on - 01/08/2023 at 1:30pm. 2. Chest x-ray to be done the same day as your device check at [facility] 04/15/2023. 3. Pacemaker/ICD clinic appointment at [facility] on 04/15/2023 at 11:00am . 4. Office visit with Dr. Moser. [][facility] Work Phone: Rewtwh for referral (narrative)* Consultation (Routine) - Authorized Specialty Diagnoses / Procedures Referred By Contac t Referred To Contact Cardiology Diagnoses AV block, Mobitz II Pacemaker Procedures Follow Up In Cardiology Henrry Issa MD [address] [place] [id number] Henrry Issa MD [address] [place] [id number] Referral ID Status Reason Start Date Expiration Date V isits Requested Visits Authorized [id number] Authorized 01/14/2023 01/14/[address] [facility] Work Phone: Relqyv for referral (narrative)* Consultation (Routine) - Authorized Specialty Diagnoses / Procedures Referred By Contac t Referred To Contact Cardiology Diagnoses AV block, Mobitz II Procedures Follow Up In Cardiology Henrry Issa MD [address] [place] [id number] Stephanie Steward MD [address] [facility] [address] [place] [address] [place] [address] Referral ID Status Reason Start Date Expiration Date V isits Requested Visits Authorized [id number] Authorized 07/24/2023 07/23/2024 1 1 [facility] Work Phone: Summary Purpose Family [...] acromioclavicular joint Procedures M Inj/Asp: R acromioclavicular Negro Brown PA [address] [facility] [address] [place] [address] Referral ID Status Reason Start Date Expiration Date V isits Requested Visits Authorized [id number] Pending Review 04/08/2023 10/05/2023 1 1 Specialty Diagnoses / Procedures Referred By Contdami t Referred To Contact Orthopaedic Surgery Diagnoses Rotator cuff arthropathy, right Procedures L Inj/Asp: R subacromial bursa Negro Brown PA [address] [facility] [address] [place] [address] Referral ID Status Reason Start Date Expiration Date V isits Requested Visits Authorized [id number] Authorized 04/08/2023 10/05/2023 1 1 Additional Source Comments (unrecognized sect ion and content) No Status Records FoundNo Status Records FoundNo Status Records FoundNo Status Records Found INFORMATION SOURCE (unrecogn ized section and content) DATE CREATED AUTHOR 05/25/2022 [facility] DATE CREATED AUTHOR AUTHOR'S ORGANIZ ATION 03/15/2024 [facility] DATE CREATED AUTHOR AUTHOR'S ORGANIZ ATION 04/17/2024 [facility] DATE CREATED AUTHOR AUTHOR'S ORGANIZ ATION 04/19/2024 [facility] [employer] Care Teams (unrecognized sec tion and content) Team Status: Active Member Role Status Dates Hugo Moser JR DO Primary Care Provider Active Team Status: Active Member Role Status Dates Hugo Moser JR DO Primary Care Provider Active Start: December 01, 2023 Hnerry Issa MD Other Provider Active Start: December [...] MD Other Provider Active Nikia Woodward , [facility]- Other Provider Active Lauren Steiner MD Other Provider Active Team Status: Inactive Member Role Status Dates Hugo Moser JR DO Primary Care Provider Active Henrry Issa MD Attending Provider Active 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 Start Date End Date Hugo Moser DO [address] [facility], [place] [id number] PCP - General Internal Medicine 12/31/22 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 Specialty Start Date End Date Hugo Moser MD [address], [place] [id number] PCP - General Internal Medicine 04/08/23 Team Status: Inactive Member Role Status Dates Hugo Moser JR DO Primary Care Provider Active Start: April 15, 2023 End: April 15, 2023 Henrry Issa MD Referring Provider Active Start: April 15, 2023 End: April 15, 2023 Sangita Salas APRN Attending Provider Active Start: April 15, 2023 End: April 15, 2023 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 Specialty Start Date End Date Hugo Moser DO PCP - General Internal Medicine 12/31/22 Team Status: Inactive Member Role Status Dates Hugo Moser JR DO Primary Care Provider Active Start: October 16, 2023 End: October 16, 2023 Henrry Issa MD Attending Provider Active Start: October 16, 2023 End: October 16, 2023 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 Specialty Start Date End Date Hugo Moser MD [address] [facility], [place] [id number] PCP - General Internal Medicine 04/08/23 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 Specialty Start Date End Date Hugo Moser MD [address] [place] [address] PCP - General Internal Medicine 04/08/23 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 Specialty Start Date End Date Hugo Moser MD [facility] [place] [address] PCP - General Internal Medicine 04/08/23 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 Specialty Start Date End Date uHgo Moser MD [facility] [place] [address] PCP - General Internal Medicine 04/08/23 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 Specialty Start Date End Date Hugo Moser MD [address] [place] [address], [place] [address] PCP - General Internal Medicine 04/08/23 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 Specialty Start Date End Date Hugo Moser MD [address] [place] [address], [place] [address] PCP - General Internal Medicine 04/08/23 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 Specialty Start Date End Date Hugo Moser MD [address] [place] [address], [place] [address] PCP - General Internal Medicine 04/08/23 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 Specialty Start Date End Date Hugo Moser MD [address] [place] [address], [place] [address] PCP - General Internal Medicine 04/08/23 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 Specialty Start Date End Date Hugo Moser MD [facility] [place] [address] PCP - General Internal Medicine 04/08/23 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 Specialty Start Date End Date Hugo [...] Follow Up In Cardiology Henrry Issa MD [address] [place] [address], [address] [address] Referral ID Status Reason Start Date Expiration Date V isits Requested Visits Authorized [id number] Authorized 01/14/2023 01/14/2024 1 1 Reason Comments Pain Reason Comments Follow-up 6 month Specialty Diagnoses / Procedures Referred By Contac t Referred To Contact Cardiology Diagnoses AV block, Mobitz II Pacemaker Procedures Follow Up In Cardiology Henrry Issa MD [address] [place] [address] 2, [address] [address] Henrry Issa MD [address] [place] [address] 2, [address] [address] Referral ID Status Reason Start Date Expiration Date V isits Requested Visits Authorized [id number] Authorized 01/14/2023 01/14/2024 1 1 Reason Comments Diabetes Reason Comments DM Foot Care Dm nail care Reason Comments Follow-up Reason Comments Follow-up 6m Specialty Diagnoses / Procedures Referred By Contac t Referred To Contact Cardiology Diagnoses AV block, Mobitz II Procedures Follow Up In Cardiology Henrry Issa MD Ibrahim, Hassan M, MD [address] [facility] [address] [place] [address] Phone: tel: fax: Referral ID Status Reason Start Date Expiration Date V isits Requested Visits Authorized [id number] Authorized 07/24/2023 07/23/2024 1 1 Reason Onset [...] BE BASED ON THE PRIMARY CLINICAL RECORDS. Photos [facility]. provides no warranty or guarantee of the accuracy or completeness of information in this document.
[2024-04-20 07:05] LABS: Basophils Percent Auto 0.6 % (0.2-2.0); Eosinophils Absolute Auto 0.1 10^3/uL (0.0-0.7); Eosinophils Percent Auto 1.5 % (0.9-7.0); Hematocrit 41.3 % (42.0-54.0); Hemoglobin 13.5 g/dL (14.0-18.0); Immature Granulocytes Abs Auto 0.05 10^3/uL (0.00-0.03); Immature Granulocytes Pct Auto 0.7 % (0.0-0.5); Lymphocytes Absolute Auto 2.8 10^3/uL (1.2-3.8); Lymphocytes Percent Auto 38.5 % (20.5-60.0); Mean Corpuscular HGB Conc 32.7 g/dL (29.9-35.2); Mean Corpuscular Hemoglobin 30.4 pg (25.9-34.0); Mean Platelet Volume 8.9 fL (9.5-13.5); Monocytes Absolute Auto 0.6 10^3/uL (0.3-0.8); Monocytes Percent Auto 8.7 % (1.7-12.0); Neutrophils Absolute Auto 3.6 10^3/uL (1.4-6.5); Platelet Count 171 10^3/uL (150-450); Red Blood Count 4.44 10^6/uL (4.70-6.10); Red Cell Distribution Width 14.6 % (11.0-15.0); White Blood Count 7.3 10^3/uL (4.0-11.0)
[2024-04-20 07:24] LABS: Estimated Average Glucose 192 mg/dL; Glycohemoglobin A1C 8.3 % (4.5-6.2)
[2024-04-20 08:17] LABS: Alanine Aminotransferase 51 U/L (16-63); Albumin Globulin Ratio 0.9; Albumin Level 3.4 g/dL (3.4-5.0); Alkaline Phosphatase 88 U/L (46-116); Anion Gap 13.5; Aspartate Amino Transferase 27 U/L (15-37); Bilirubin Direct 0.1 mg/dL (0.0-0.2); Bilirubin Total 0.6 mg/dL (0.2-1.0); Carbon Dioxide 29.1 mmol/L (21.0-32.0); Chloride 104 mmol/L (98-107); Cholesterol 79 mg/dL (<=200); Estimated GFR (African America >60 (>=60 mL/min/1.73m^2); Estimated GFR (Non-African Ame 50 (>=60 mL/min/1.73m^2); Globulin 3.6 g/dL; HDL Cholesterol 40 mg/dL (40-60); LDL Cholesterol Calculated 25.2 mg/dL; Potassium 4.6 mmol/L (3.5-5.1); Sodium 142 mmol/L (136-145); Thyroid Stimulating Hormone 1.239 uIU/mL (0.358-3.740); Triglycerides 69 mg/dL (<=150); VLDL CHOLESTEROL 13.8 mg/dL
[2024-04-20 08:18] LABS: Prostate Specific Antigen Scrn 0.49 ng/mL (<=4.00)
== END 2024-04-20 06:33 | disposition home or self-care (01) ==
LOC: LAB 06:33
PROVIDERS: PCP Internal Medicine; Visit Provider Internal Medicine
DX: Z00.00 Encounter for general adult medical examination without abnormal findings (principal); Z79.899 Other long term (current) drug therapy; E78.5 Hyperlipidemia, unspecified; R78.5 Finding of other psychotropic drug in blood; E11.65 Type 2 diabetes mellitus with hyperglycemia; Z12.5 Encounter for screening for malignant neoplasm of prostate; E55.9 Vitamin D deficiency, unspecified
CPT/HCPCS: 36415; 80051; 80061; 80076; 82306; 82565; 83036; 83880; 84443; 84520; 85025; G0103

== ENCOUNTER 2024-05-09 08:18 | Emergency (ER) | payer MEDICARE, SELFPAY ==
[2024-05-09 08:22] VITALS: BP 140/107; PULSE 91; TEMP 36.5; O2SAT 97; BMI 27.9
[2024-05-09 08:30] VITALS: O2SAT 98
--- NOTE | 2024-05-09 08:31 | ED.GENADUL1 ---
HPI HPI - General Adult General Chief complaint: Back Pain/Injury Stated complaint: FALL BACK PAIN Time Seen by Provider: 05/09/24 08:26 Source: patient Mode of arrival: walk-in Limitations: no limitations History of Present Illness HPI narrative: 83-year-old male presents for evaluation of injuries after fall. 2 days ago he was carrying groceries down some stairs and fell down 2 stairs. He complains mostly of pain to his left upper thoracic area. He also hit his head and has an abrasion and bruise on his scalp. No LOC or chest pain or shortness of breath. No vomiting. He felt a little bit dizzy. He has had a tetanus shot within the last 10 years. Related Data Home Medications ?Medication ?Instructions ?Recorded ?Confirmed acarbose 100 mg tablet mg 03/19/24 empagliflozin .ROUTE 03/19/24 empagliflozin .ROUTE 03/19/24 ezetimibe 10 mg tablet mg 03/19/24 finerenone 20 mg tablet (Kerendia) 20 mg PO DAILY 03/19/24 03/19/24 metformin 1,000 mg tablet mg 03/19/24 rosuvastatin 40 mg tablet mg 03/19/24 Previous Rx's ?Medication ?Instructions ?Recorded levofloxacin 750 mg tablet 750 mg PO DAILY 4 days #4 tabs 03/19/24 oseltamivir 75 mg capsule (Tamiflu) 75 mg PO BID 5 days #10 caps 03/19/24 Allergies Allergy/AdvReac Type Severity Reaction Status Date / Time No Known Drug Allergies Allergy Verified 05/09/24 08:22 Opioid HPI Opioid Management Most Recent Opioid Data: Last Pain Scale 7 05/09/24 08:29 05/09/24 Review of Systems ROS Narrative A ten point review of systems is negative except as noted above. PFSH PFSH Social History Little interest or pleasure in doing things: not at all Feeling down, depressed, or hopeless: not at all Exam Narrative Exam Narrative: Nurses note and vital signs reviewed and patient is not hypoxic. General: The patient appears well and in no apparent distress. Patient is resting comfortably on cart. Skin: Warm, dry, no pallor noted. There is no rash noted. Head: Normocephalic, abrasion and bruising present on the left posterior lateral scalp area. Cervical spine nontender Eye: Normal conjunctiva, no drainage Ears, Nose, Mouth, and Throat: oral mucosa is moist. Nares patent. Cardiovascular: Regular Rate and Rhythm Respiratory: Patient is in no distress, no accessory muscle use, lungs are clear to auscultation, no wheezing, rales or rhonchi Back: He has some tenderness in the upper thoracic spine area and just to the left of midline. No crepitus in this area GI: Soft and nontender Musculoskeletal: Abrasion and bruise present of the left shoulder but the left shoulder has full range of motion without discomfort. Neurological: A&O, normal speech Psychiatric: Cooperative Constitutional Vital Signs, click to edit/add: Last Vital Signs Temp 97.7 F 05/09/24 08:22 Pulse 91 H 05/09/24 08:22 Resp 18 05/09/24 08:22 BP 140/107 H 05/09/24 08:22 Pulse Ox 98 05/09/24 08:30 O2 Del Method Room Air 05/09/24 08:30 Course Vital Signs Vital signs: Vital Signs Temperature 97.7 F 05/09/24 08:22 Pulse Rate 91 H 05/09/24 08:22 Respiratory Rate 18 05/09/24 08:22 Blood Pressure 140/107 H 05/09/24 08:22 Pulse Oximetry 97 05/09/24 08:22 Oxygen Delivery Method Room Air 05/09/24 08:22 Temperature 97.7 F 05/09/24 08:22 Pulse Rate 91 H 05/09/24 08:22 Respiratory Rate 18 05/09/24 08:22 Blood Pressure 140/107 H 05/09/24 08:22 Pulse Oximetry 98 05/09/24 08:30 Oxygen Delivery Method Room Air 05/09/24 08:[address] [facility] Narrative Medical decision making narrative: Radiographs are all negative and he is able to be discharged home. Tetanus status is already up-to-date. Treatment diagnosis and follow-up were discussed with the patient. Differential Diagnosis Differential Diagnosis: Contusion, abrasion, intracranial hemorrhage, rib fracture, thoracic spine Imaging Data CT brain, rib x-ray, thoracic spine x-ray: Radiologist's impression: CT brain: No acute intracranial abnormality Left rib x-rays: No left rib fracture Thoracic spine x-ray: No acute process Discharge Plan Discharge Chief Complaint: Back Pain/Injury Clinical Impression: Multiple contusions Patient Disposition: Home, Self-Care Time of Disposition Decision: 09:24 Condition: Good Mode of Transportation: Private Vehicle Prescriptions / Home Meds: No Action acarbose 100 mg tablet metformin 1,000 mg tablet ezetimibe 10 mg tablet rosuvastatin 40 mg tablet empagliflozin [Jardiance] .ROUTE Kerendia 20 mg tablet 20 mg PO DAILY empagliflozin [Jardiance] .ROUTE oseltamivir [Tamiflu] 75 mg capsule 75 mg PO BID 5 Days Qty: 10 0RF levofloxacin 750 mg tablet 750 mg PO DAILY 4 Days Qty: 4 0RF Print Language: Chinese Instructions: Contusion in Adults (ED) Referrals: KEN MOSER DO [Primary Care Provider] - 1 week
--- OUTSIDE RECORDS SUMMARY | 2024-05-09 08:41 | XMS_ITS | CCD ---
Author Organization [facility] CliniSyva Care Team Providers Care Mobile Sales Assistant Name Role Phone SHANTI, DR ARIAS Admitting [...] Care Provider DO Jarred Cline Admit Provider [phone] MD Katie Osborne Attending Provider SULEIMAN [...] Provider MD Jordan Bolanos Other Provider Crissy [facility] Nikia Ferris Other Provider [phone] MD Lauren Steiner Other Provider [phone] JR Hugo Moser Primary Care Provider [phone] DO Jarred Cline Admit Provider MD Katie Osborne Attending Provider SULEIMAN Prakash Other Provider Unavailable DO Aretha Chaparro Other Provider MD Stephanie Steward Other Provider MD Henrry Issa Other Provider MD Farzana Escalera Other Provider MD Hugo Johnson Other Provider BHAVIN Gregorio Other Provider MD Natacha Padron Other Provider MD Kang Douglas Other Provider MD Jordan Bolanos Other Provider Crissy [facility] Nikia Ferris Other Provider MD Lauren Steiner Other Provider MD Henrry Issa Attending Provider Hugo Moser DO Primary Care Provider Hugo Moser MD Primary Care Provider JR Hugo Moser Primary Care Provider [phone] MD Henrry Issa Referring Provider BHAVIN Gregorio Attending Provider Hugo Moser DO Primary Care Provider JR Hugo Moser Primary Care Provider MD Henrry Issa Attending Provider HENRRY ISSA Attending Unavailable HENRRY ISSA Referring Unavailable HUGO MOSER Primary Care Unavailable STEPHANIE STEWARD Attending Unavailable HENRRY ISSA Referring Unavailable HUGO MOSER Primary Care Unavailable Hugo Moser JR Primary Care Provider [phone] Henrry Issa MD Attending Provider VEDA ROME Attending Unavailable JR. NASREEN, GINI Griffin Attending Unavailpamela CÁRDENAS JR., GINI Griffin Attending UnavailVEDA Edwards Attending Unavailable HUGO MOSER Referring Unavailable KENNEDY CAMARA Attending Unavailable VEDA ROME Attending Unavailable JR. NASREEN, GINI Griffin Attending UnavailHenrry Merrill Admitting Unavail able Hugo Moser Primary Care Unavailable Henrry Issa Attending Unavail able Henrry Issa Admitting Unavail able Hugo Moser Primary Care Unavailable Henrry Issa Attending Unavail able Stephanie Steward Attending Unavailable Stephanie Steward Admitting Unavailable Hugo Moser Primary Care Unavailable Henrry Issa Attending Unavail able Henrry Issa Admitting Unavail able Hugo Moser Primary Care Unavailable Medications Current Medications Medication Drug Class(es) Dates Sig (Normalized) Sig (Original) acarbose 100 mg oral tablet (20 sources) alpha-Glucosidase Inhibitor Start: 12-28-2022 End: 04-18-2024 take 1 tablet by mouth once daily [...] daily 12 December 31, 2022 12:00am Docusate (8 sources) Docusate Calcium (STOOL SOFTENER PO) Take by mouth Active empagliflozin 25 mg oral tablet (20 sources) Sodium-Glucose Cotransporter 2 Inhibitor Start: 11-11-19 take 1 tablet by mouth in the morning empagliflozin (Jardiance) 25 MG Indications: Type 2 diabetes mell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, without long-term current use of insulin (HCC) ([facility]) Take 1 tablet (25 mg) by mouth [...] mouth once daily. Active Finerenone (KERENDIA PO) (17 sources) Finerenone (KERE NDIA PO) Take 20 mg by mouth Active Finerenone (KERE NDIA PO) Take by mouth Active Finerenone (KERE NDIA PO) Take by mouth 0 Active 3 ml insulin degludec 100 unt/ml pen injector (6 sources) Insulin Analog Start: 01-18-2024 insulin deglud ec (Tresiba FlexTouch) 100 UNIT/ML injection Indications: Type 2 diabetes mellitus with hyperglycemia, without long-term current use of insulin ([facility]) Inject 12 Units under the skin Daily 15 mL 3 01/18/2024 Active metFORMIN hydrochloride 500 mg oral tablet (19 sources) Biguanide Start: 06-25-2023 End: 12-03-2023 take [...] pen needle 33G x 4 mm misc (8 sources) Start: 01-18-2024 pen needle 33G x 4 mm misc Indications: Type 2 diabetes mell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, without long-term current use of insulin (HCC) ([facility]) Injections subcutaneous daily 100 each 3 [...] 2 Receptor Maria Victoria Start: 12-28-2022 End: 10-03-2024 take 1 tablet by mouth once daily [...] without long-term current use of insulin (HCC) ([facility]) Inject 15 Units under the skin Daily [...] with diabetic chronic kidney disease] Onset: 2 Resolved: 5 12-03-2023 Chronic Diabetes mellitus without complication (17 [...] p per request of Phys. 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; Translations: [OTH QA TECH 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 THERAPY] Onset: 3 Episodic Other [...] Da te Episodic/Chronic Phlebitis; thrombophlebitis and thromboembolism (19 sources) Deep venous thrombosis; Translations: [Acute embolism and thrombosis of unspecified deep veins of unspecified lower extremity] Onset: 01-14-2023 01-14-2023 Episodic Unclassified (3 sources) Onset: 01-14-2023 Resolved: 03-09-2024 01-14-2023 Results Test Name Value Interpretation Reference Range Facility HbA1c (Bld) [Mass fraction]o n 04-18-2024 Interpretation and review of laboratory results Abnormal [facility] Laboratory - Hematology and Cell countson 04-18-2024 HbA1c (Bld) [Mass fraction] 8.1 % [facility] ECG 12 Leadon 03-09-2024 ECG reveals atrial s ensing and ventricular pacing rhythm, abnormal ECG [facility] Work Phone: HbA1c (Bld) [Mass fraction]o n 01-18-2024 Interpretation and review of laboratory results Abnormal [facility] - Hematology and Cell countson 01-18-2024 HbA1c (Bld) [Mass fraction] 10.4 % [facility] L Inj/Asp: R subacromial bur saon [...] with 2ml of 2 % lidocaine (Code 28080 RT) Procedure, treatment alternatives, risks and benefits explained, specific risks discussed. Consent was given by the patient. [facility] M Inj/Asp: R acromioclavicul garrett 04-08-2023 [...] and draped in the usual sterile fashion. [facility] Basophils Auto (Bld) [#/Vol] Ordered By: Jarred Cline on 12-31-2022 Basophils (Bld) [#/Vol] 0.0 10*3/uL 0.0-0.2 [facility] Basophils/100 WBC Auto (Bld) Ordered By: Jarred Cline on 12-31-2022 Basophils/100 WBC (Bld) 0.6 % . [facility] Calcium [Mass/volume] in Ser um or PlasmaOrdered By: Jarred Cline on 12-31-2022 Calcium [Mass/Vol] 8.9 mg/dL 8.6-10.3 [facility] Carbon dioxide, total [Moles /volume] in Serum or PlasmaOrdered By: Jarred Cline on 12-31-2022 CO2 [Moles/Vol] 22.9 mmol/L 21.0-31.0 [facility] Chloride [Moles/volume] in S chiquis or PlasmaOrdered By: Jarred Cline on 12-31-2022 Chloride [Moles/Vol] 106 mmol/L 98-107 [facility] Creatinine [Mass/volume] in Serum or PlasmaOrdered By: Jarred Cline on 12-31-2022 Creatinine [Mass/Vol] 1.20 mg/dL 0.70-1.30 [facility] Eosinophils Auto (Bld) [#/Vo l]Ordered By: Jarred Cline on 12-31-2022 Eosinophils (Bld) [#/Vol] 0.1 10*3/uL 0.0-0.45 [facility] Eosinophils/100 WBC Auto (Bl d)Ordered By: Jarred Cline on 12-31-2022 Eosinophils/100 WBC (Bld) 1.6 % . [facility] Erythrocyte distribution wid th Auto (RBC) [Ratio]Ordered By: Jarred Cline on 12-31-2022 Erythrocyte distribution width (RBC) [Ratio] 14.9 % 12.0-14.8 [facility] Glucose [Mass/volume] in Ser um or PlasmaOrdered By: Jarred Cline on 12-31-2022 Glucose [Mass/Vol] 175 mg/dL 70-100 [facility] Comment on above: ADA recommended refe rence rangeRandom Glucose Reference Range is dependent on time and content of last meal. Glucose of more than 200 mg/dL in a nonstressed, ambulatory subject supports the diagnosis of Diabetes Mellitus. Hematocrit Auto (Bld) [Volum e fraction]Ordered By: Jarred Cline on 12-31-2022 Hematocrit (Bld) [Volume fraction] 39.1 % 38.8-50.0 [facility] Hemoglobin [Mass/volume] in BloodOrdered By: Jarred Cline on 12-31-2022 Hemoglobin (Bld) [Mass/Vol] 13.0 g/dL 13.0-17.0 [facility] Leukocytes [#/volume] correc adela for nucleated erythrocytes in Blood by Automated counOrdered By: Jarred Cline on 12-31-2022 WBC corrected for nucl RBC Auto (Bld) [#/Vol] 6.7 10*3/uL 4.1-10.5 [facility] Lymphocytes Auto (Bld) [#/Vo l]Ordered By: Jarred Cline on 12-31-2022 Lymphocytes (Bld) [#/Vol] 1.9 10*3/uL 1.00-4.8 [facility] Lymphocytes/100 WBC Auto (Bl d)Ordered By: Jarred Cline on 12-31-2022 Lymphocytes/100 WBC (Bld) 27.7 % . [facility] MCH Auto (RBC) [Entitic mass ]Ordered By: Jarred Cline on 12-31-2022 MCH (RBC) [Entitic mass] 30.5 pg 27.5-35.2 [facility] MCHC Auto (RBC) [Mass/Vol]Or dered By: Jarred Cline on 12-31-2022 MCHC (RBC) [Mass/Vol] 33.3 g/dL 32.5-35.6 [facility] MCV Auto (RBC) [Entitic vol] Ordered By: Jarred Cline on 12-31-2022 MCV (RBC) [Entitic vol] 91.5 fL 83.5-101 [facility] Magnesium [Mass/volume] in S chiquis or PlasmaOrdered By: Jarred Cline on 12-31-2022 Magnesium [Mass/Vol] 2.1 mg/dL 1.9-2.7 [facility] Monocytes Auto (Bld) [#/Vol] Ordered By: Jarred Cline on 12-31-2022 Monocytes (Bld) [#/Vol] 0.6 10*3/uL 0.0-0.8 [facility] Monocytes/100 WBC Auto (Bld) Ordered By: Jarred Cline on 12-31-2022 Monocytes/100 WBC (Bld) 8.9 % . [facility] Neutrophils Auto (Bld) [#/Vo l]Ordered By: Jarred Cline on 12-31-2022 Neutrophils (Bld) [#/Vol] 4.1 10*3/uL 1.8-7.7 [facility] Neutrophils/100 WBC Auto (Bl d)Ordered By: Jarred Cline on 12-31-2022 Neutrophils/100 WBC (Bld) 61.2 % . [facility] No Panel InformationOrdered By: Jarred Cline on 12-31-2022 Estimated GFR (CKD-EPI) > 60.0 mL/Min [facility] Creatinine Clearance (Chem 48.99 [facility] Nucleated erythrocytes [Pres ence] in Blood by Automated countOrdered By: Jarred Cline on 12-31-2022 Nucleated RBC Auto Ql (Bld) 0.0 /100{WBC} 0-0.5 [facility] Platelet mean volume Auto (B ld) [Entitic vol]Ordered By: Jarred Cline on 12-31-2022 Platelet mean volume (Bld) [Entitic vol] 7.2 fL 6.6-10.1 [facility] Platelets Auto (Bld) [#/Vol] Ordered By: Jarred Cline on 12-31-2022 Platelets (Bld) [#/Vol] 148 10*3/uL 150-450 [facility] Potassium [Moles/volume] in Serum or PlasmaOrdered By: Jarred Cline on 12-31-2022 Potassium [Moles/Vol] 4.1 mmol/L 3.5-5.1 [facility] RBC Auto (Bld) [#/Vol]Ordere d By: Jarred Cline on 12-31-2022 RBC (Bld) [#/Vol] 4.27 10*6/uL 3.90-5.60 [facility] Serum or plasma anion gap de terminationOrdered By: Jarred Cline on 12-31-2022 Anion gap [Moles/Vol] 12.2 mmol/L 6.0-15.0 [facility] Sodium [Moles/volume] in Ser um or PlasmaOrdered By: Jarred Cline on 12-31-2022 Sodium [Moles/Vol] 137 mmol/L 136-145 [facility] Urea nitrogen [Mass/volume] in Serum or PlasmaOrdered By: Jarred Cline on 12-31-2022 Urea nitrogen [Mass/Vol] 23 mg/dL 7-25 [facility] WBC Auto (Bld) [#/Vol]Ordere d By: Jarred Cline on 12-31-2022 WBC (Bld) [#/Vol] 6.7 10*3/uL 4.1-10.5 [facility] Activated partial thrombopla stin time (aPTT) in platelet poor plasma by coagulation aOrdered By: Henrry Issa on 12-30-2022 aPTT Coag (PPP) [Time] 30.2 s 25.1-36.5 [facility] Comment on above: A hematocrit value g reater than 55% may lead to inaccurate results in coagulation testing. Patients having hematocrit values >55% require a special collection tube for coagulation studies. Please contact the laboratory at [phone] for redraw instructions. Glucose Glucometer (dC) [M ass/Vol]Ordered By: Katie Osborne on 12-30-2022 Glucose [Mass/Vol] 183 mg/dL [facility] Comment on above: Random Glucose Refer ence Range is dependent on time and content of last meal. Glucose of more than 200 mg/dL in a nonstressed, ambulatory subject supports the diagnosis of Diabetes Mellitus. INR in Platelet poor plasma by Coagulation assayOrdered By: Henrry Issa on 12-30-2022 INR Coag (PPP) [Relative time] 1.1 {INR} [facility] Comment on above: INR Therapeutic Rang e [...] PT Coag (PPP) [Time] 13.1 s 9.0-12.9 [facility] Comment on above: A hematocrit value g reater than 55% may lead to inaccurate results in coagulation testing. Patients having hematocrit values >55% require a special collection tube for coagulation studies. Please contact the laboratory at [phone] for redraw instructions. Cholesterol [Mass/volume] in Serum or PlasmaOrdered By: Jarred Cline on 12-29-2022 Cholesterol [Mass/Vol] 96 mg/dL 140-200 [facility] Comment on above: Chol less than 200 m g/dl low riskChol 201-239 mg/dl borderline riskChol 240 mg/dl and greater high risk Cholesterol in LDL Calc [Mas s/Vol]Ordered By: Jarred Cline on 12-29-2022 Cholesterol in LDL [Mass/Vol] 40 mg/dL 0-100 [facility] Comment on above: LDL ATP III CLASSIFI CATIONLDL less than 100 mg/dL OptimalLDL 100-129 mg/dL Near or above optimalLDL 130-159 mg/dL Borderline highLDL 160-189 mg/dL HighLDL greater than 189 mg/dL Very high Cholesterol in VLDL Calc [Ma ss/Vol]Ordered By: Jarred Cline on 12-29-2022 Cholesterol in VLDL [Mass/Vol] 26 mg/dL [facility] Serum or plasma high density lipoprotein (HDL) cholesterol measurementOrdered By: Jarred Cline on 12-29-2022 Cholesterol in HDL [Mass/Vol] 30 mg/dL 23-92 [facility] Comment on above: HDL CHOL ATP-III CLA SSIFICATION Cardiovascular RiskHDL > or equal to 60 mg/dL LOWHDL < 40 mg/dL HIGH Serum or plasma total choles terol/high density lipoprotein (HDL) cholesterol mass ratOrdered By: Jarred Cline on 12-29-2022 Cholesterol.total/Chol esterol in HDL [Mass ratio] 3.2 {ratio} <5.0 [facility] Triglyceride [Mass/volume] i n Serum or PlasmaOrdered By: Jarred Cline on 12-29-2022 Triglyceride [Mass/Vol] 132 mg/dL 0-149 [facility] Comment on above: TRIG ATP III CLASSIF [...] from glycated hemoglobin (Bld) [Mass/Vol] 212 mg/dL [facility] Hemoglobin A1c percentageOrd ered By: Jarred Cline on 12-28-2022 HbA1c (Bld) [Mass fraction] 9.0 % 4.3-5.6 [facility] Comment on above: Increased risk for d iabetes: 5.7 - 6.4diabetes: >6.4glycemic control for adults with diabetes: <7.0 BNPon 05-19-2022 Natriuretic peptide B (Bld) [Mass/Vol] 74.0 pg/mL Normal <=1,800.[address] [facility] Comment on above: Performed By: #### E LEC, BUN, BNP, LIVER, CREA #### [facility] [address] [place] [address] Dr. Brissa Ma BUNon 05-19-2022 Urea nitrogen [Mass/Vol] 41.0 mg/dL Critically high 7.0-18.[address] [facility] Comment on above: Performed By: #### E LEC, BUN, BNP, LIVER, CREA #### [facility] [address] [place] [address] Dr. Brissa Ma CBC AUTO DIFFon 05-19-2022 BASO # 0.1 103/ul Normal 0.0-0.[address] [facility] Comment on above: Performed By: #### E LEC, BUN, BNP, LIVER, CREA #### [facility] [address] [place] [address] Dr. Brissa Ma Basophils/100 WBC (Bld) 0.8 % Normal 0.2-2.[address] [facility] Comment on above: Performed By: #### E LEC, BUN, BNP, LIVER, CREA #### [facility] [address] [place] [address] Dr. Brissa Ma EO # 0.1 103/ul Normal 0.0-0.[address] [facility] Comment on above: Performed By: #### E LEC, BUN, BNP, LIVER, CREA #### [facility] [address] [place] [address] Dr. Brissa Ma Eosinophils/100 WBC (Bld) 1.1 % Normal 0.9-7.[address] [facility] Comment on above: Performed By: #### E LEC, BUN, BNP, LIVER, CREA #### [facility] [address] [place] [address] Dr. Brissa Ma Erythrocyte distribution width (RBC) [Ratio] 14.1 % Normal 11.0-15.[address] [facility] Comment on above: Performed By: #### E LEC, BUN, BNP, LIVER, CREA #### [facility] [address] [place] [address] Dr. Brissa Ma Hematocrit (Bld) [Volume fraction] 47.8 % Normal 42.0-54.[address] [facility] Comment on above: Performed By: #### E LEC, BUN, BNP, LIVER, CREA #### [facility] [address] [place] [address] Dr. Brissa Ma Hemoglobin (Bld) [Mass/Vol] 15.3 g/dL Normal 14.0-18.[address] [facility] Comment on above: Performed By: #### E LEC, BUN, BNP, LIVER, CREA #### [facility] [address] [place] [address] Dr. Brissa Ma IG # 0.17 10e3/ul Critically high 0.00-0.[address] [facility] Comment on above: Performed By: #### E LEC, BUN, BNP, LIVER, CREA #### [facility] [address] [place] [address] Dr. Brissa Ma IG % 1.7 % Critically high 0.0-0.[address] [facility] Comment on above: Performed By: #### E LEC, BUN, BNP, LIVER, CREA #### [facility] [address] [place] [address] Dr. Brissa Ma LYMPH # 3.8 103/ul Normal 1.2-3.[address] [facility] Comment on above: Performed By: #### E LEC, BUN, BNP, LIVER, CREA #### [facility] [address] [place] [address] Dr. Brissa Ma Lymphocytes/100 WBC (Bld) 38.4 % Normal 20.5-60.[address] [facility] Comment on above: Performed By: #### E LEC, BUN, BNP, LIVER, CREA #### [facility] [address] [place] [address] Dr. Brissa Ma MANUAL DIFF REQ NO Normal [facility] Comment on above: Performed By: #### E LEC, BUN, BNP, LIVER, CREA #### [facility] [address] [place] [address] Dr. Brissa Ma MCH (RBC) [Entitic mass] 30.2 pg Normal 25.9-34.[address] [facility] Comment on above: Performed By: #### E LEC, BUN, BNP, LIVER, CREA #### [facility] [address] [place] [address] Dr. Brissa Ma MCHC (RBC) [Mass/Vol] 32.0 g/dL Normal 29.9-35.[address] [facility] Comment on above: Performed By: #### E LEC, BUN, BNP, LIVER, CREA #### [facility] [address] [place] [address] Dr. Brissa Ma MCV (RBC) [Entitic vol] 94.3 fL Critically high 80.0-94.[address] [facility] Comment on above: Performed By: #### E LEC, BUN, BNP, LIVER, CREA #### [facility] [address] [place] [address] Dr. Brissa Ma MONO # 0.7 103/ul Normal 0.3-0.[address] [facility] Comment on above: Performed By: #### E LEC, BUN, BNP, LIVER, CREA #### [facility] [address] [place] [address] Dr. Brissa Ma Monocytes/100 WBC (Bld) 7.4 % Normal 1.7-12.[address] [facility] Comment on above: Performed By: #### E LEC, BUN, BNP, LIVER, CREA #### [facility] [address] [address] [address] Brissa Ma NEUT # 5.0 103/ul Normal 1.4-6.[address] [facility] Comment on above: Performed By: #### E LEC, BUN, BNP, LIVER, CREA #### [facility] [address] [address] [address] Brissa Ma Neutrophils/100 WBC (Bld) 50.6 % Normal 43.0-75.[address] [facility] Comment on above: Performed By: #### E LEC, BUN, BNP, LIVER, CREA #### [facility] [address] [place] [address] Dr. Brissa Ma Platelet mean volume (Bld) [Entitic vol] 9.0 fL Critically low 9.5-13.[address] [facility] Comment on above: Performed By: #### E LEC, BUN, BNP, LIVER, CREA #### [facility] [address] [place] [address] Dr. Brissa Ma PLT 205 103/ul Normal 150-[address] [facility] Comment on above: Performed By: #### E LEC, BUN, BNP, LIVER, CREA #### [facility] [address] [place] [address] Dr. Brissa Ma RBC 5.07 106/ul Normal 4.70-6.[address] [facility] Comment on above: Performed By: #### E LEC, BUN, BNP, LIVER, CREA #### [facility] [address] [place] [address] Dr. Brissa Ma WBC 9.9 103/ul Normal 4.0-11.[address] [facility] Comment on above: Performed By: #### E LEC, BUN, BNP, LIVER, CREA #### [facility] [address] [place] [address] Dr. Brissa Ma CREATININEon 05-19-2022 Creatinine [Mass/Vol] 1.60 mg/dL Critically high 0.70-1.[address] [facility] Comment on above: Performed By: #### E LEC, BUN, BNP, LIVER, CREA #### [facility] [address] [place] [address] Dr. Brissa Ma EGFR-AF MONTENEGRIN 50 mL/min/1.73m2 Critically low >=[address] [facility] Comment on above: Performed By: #### E LEC, BUN, BNP, LIVER, CREA #### [facility] [address] [place] [address] Dr. Brissa Ma EGFR-NON AF MONTENEGRIN 42 mL/min/1.73m2 Critically low >=[address] [facility] Comment on above: Performed By: #### E LEC, BUN, BNP, LIVER, CREA #### [facility] [address] [place] [address] Dr. Brissa Ma ELECTROLYTESon 05-19-2022 Anion gap [Moles/Vol] 15.5 mmol/L Normal [facility] Comment on above: Performed By: #### E LEC, BUN, BNP, LIVER, CREA #### [facility] [address] [place] [address] Dr. Brissa Ma Chloride [Moles/Vol] 102 mmol/L Normal 98-[address] [facility] Comment on above: Performed By: #### E LEC, BUN, BNP, LIVER, CREA #### [facility] [address] [place] [address] Dr. Brissa Ma CO2 [Moles/Vol] 25.5 mmol/L Normal 21.0-32.[address] [facility] Comment on above: Performed By: #### E LEC, BUN, BNP, LIVER, CREA #### [facility] [address] [place] [address] Dr. Brissa Ma Potassium [Moles/Vol] 5.0 mmol/L Normal 3.5-5.[address] [facility] Comment on above: Performed By: #### E LEC, BUN, BNP, LIVER, CREA #### [facility] [address] [place] [address] Dr. Brissa Ma Sodium [Moles/Vol] 138 mmol/L Normal 136-145 [facility] Comment on above: Performed By: #### E LEC, BUN, BNP, LIVER, CREA #### [facility] [address] [place] [address] Dr. Brissa Ma GLYCOHEMOGLOBIN A1Con 2022 ADA RECOMMENDATION SEE BELOW Normal [facility] Comment on above: Result Comment: ADA RECOMMENDED LIMIT 4.0 - 6.0 ADA THERAPEUTIC TARGET < 7.0 ACTION SUGGESTED > 7.0 Performed By: #### A 1C #### [facility] [address] [place] [address] Dr. Brissa Ma Glucose [Mass/Vol] 203 mg/dL Normal [facility] Comment on above: Performed By: #### A 1C #### [facility] [address] [place] [address] Dr. Brissa Ma HbA1c (Bld) [Mass fraction] 8.7 % Critically high 4.5-6.[address] [facility] Comment on above: Performed By: #### A 1C #### [facility] [address] [place] [address] Dr. Brissa Ma LIVER PROFILEon 05-19-2022 Albumin [Mass/Vol] 3.7 g/dL Normal 3.4-5.[address] [facility] Comment on above: Performed By: #### E LEC, BUN, BNP, LIVER, CREA #### [facility] [address] [place] [address] Dr. Brissa Ma Albumin/Globulin [Mass ratio] 1.0 {ratio} Normal [facility] Comment on above: Performed By: #### E LEC, BUN, BNP, LIVER, CREA #### [facility] [address] [place] [address] Dr. Brissa Ma ALP [Catalytic activity/Vol] 80 U/L Normal 46-[address] [facility] Comment on above: Performed By: #### E LEC, BUN, BNP, LIVER, CREA #### [facility] [address] [place] [address] Dr. Brissa Ma ALT [Catalytic activity/Vol] 16 U/L Normal 16-[address] [facility] Comment on above: Performed By: #### E LEC, BUN, BNP, LIVER, CREA #### [facility] [address] [place] [address] Dr. Brissa Ma AST [Catalytic activity/Vol] 18 U/L Normal 15-[address] [facility] Comment on above: Performed By: #### E LEC, BUN, BNP, LIVER, CREA #### [facility] [address] [place] [address] Dr. Brissa Ma BILI, CONJUGATED 0.1 mg/dL Normal 0.0-0.[address] [facility] Comment on above: Performed By: #### E LEC, BUN, BNP, LIVER, CREA #### [facility] [address] [place] [address] Dr. Brissa Ma Bilirubin [Mass/Vol] 0.7 mg/dL Normal 0.2-1.[address] [facility] Comment on above: Performed By: #### E LEC, BUN, BNP, LIVER, CREA #### [facility] [address] [place] [address] Dr. Brissa Ma Globulin (S) [Mass/Vol] 3.8 g/dL Normal [facility] Comment on above: Performed By: #### E LEC, BUN, BNP, LIVER, CREA #### [facility] [address] [place] [address] Dr. Brissa Ma Protein [Mass/Vol] 7.5 g/dL Normal 6.4-8.[address] [facility] Comment on above: Performed By: #### E LEC, BUN, BNP, LIVER, CREA #### [facility] [address] [place] [address] Dr. Brissa TINAJEROon 01-22-2022 Natriuretic peptide B (Bld) [Mass/Vol] 150.0 pg/mL Normal <=1,800.[address] [facility] Comment on above: Performed By: #### E LEC, BUN, BNP, LIVER, CREA #### [facility] [address] [place] [address] Dr. Brissa PARRon 01-22-2022 Urea nitrogen [Mass/Vol] 22.0 mg/dL Critically high 7.0-18.[address] [facility] Comment on above: Performed By: #### E LEC, BUN, BNP, LIVER, CREA #### [facility] [address] [place] [address] Dr. Brissa Ma CBC AUTO DIFFon 01-22-2022 BASO # 0.0 103/ul Normal 0.0-0.[address] [facility] Comment on above: Performed By: #### E LEC, BUN, BNP, LIVER, CREA #### [facility] [address] [place] [address] Dr. Brissa Ma Basophils/100 WBC (Bld) 0.5 % Normal 0.2-2.[address] [facility] Comment on above: Performed By: #### E LEC, BUN, BNP, LIVER, CREA #### [facility] [address] [place] [address] Dr. Brissa Ma EO # 0.1 103/ul Normal 0.0-0.[address] [facility] Comment on above: Performed By: #### E LEC, BUN, BNP, LIVER, CREA #### [facility] [address] [place] [address] Dr. Brissa Ma Eosinophils/100 WBC (Bld) 1.9 % Normal 0.9-7.[address] [facility] Comment on above: Performed By: #### E LEC, BUN, BNP, LIVER, CREA #### [facility] [address] [place] [address] Dr. Brissa Ma Erythrocyte distribution width (RBC) [Ratio] 14.1 % Normal 11.0-15.[address] [facility] Comment on above: Performed By: #### E LEC, BUN, BNP, LIVER, CREA #### [facility] [address] [place] [address] Dr. Brissa Ma Hematocrit (Bld) [Volume fraction] 43.1 % Normal 42.0-54.[address] [facility] Comment on above: Performed By: #### E LEC, BUN, BNP, LIVER, CREA #### [facility] [address] [place] [address] Dr. Brissa Ma Hemoglobin (Bld) [Mass/Vol] 13.7 g/dL Critically low 14.0-18.[address] [facility] Comment on above: Performed By: #### E LEC, BUN, BNP, LIVER, CREA #### [facility] [address] [place] [address] Dr. Brissa Ma IG # 0.05 10e3/ul Critically high 0.00-0.[address] [facility] Comment on above: Performed By: #### E LEC, BUN, BNP, LIVER, CREA #### [facility] [address] [place] [address] Dr. Brissa Ma IG % 0.8 % Critically high 0.0-0.[address] [facility] Comment on above: Performed By: #### E LEC, BUN, BNP, LIVER, CREA #### [facility] [address] [place] [address] Dr. Brissa Ma LYMPH # 2.7 103/ul Normal 1.2-3.[address] [facility] Comment on above: Performed By: #### E LEC, BUN, BNP, LIVER, CREA #### [facility] [address] [place] [address] Dr. Brissa Ma Lymphocytes/100 WBC (Bld) 42.1 % Normal 20.5-60.[address] [facility] Comment on above: Performed By: #### E LEC, BUN, BNP, LIVER, CREA #### [facility] [address] [place] [address] Dr. Brissa Ma MANUAL DIFF REQ NO Normal [facility] Comment on above: Performed By: #### E LEC, BUN, BNP, LIVER, CREA #### [facility] [address] [place] [address] Dr. Brissa Ma MCH (RBC) [Entitic mass] 29.8 pg Normal 25.9-34.[address] [facility] Comment on above: Performed By: #### E LEC, BUN, BNP, LIVER, CREA #### [facility] [address] [place] [address] Dr. Brissa Ma MCHC (RBC) [Mass/Vol] 31.8 g/dL Normal 29.9-35.[address] [facility] Comment on above: Performed By: #### E LEC, BUN, BNP, LIVER, CREA #### [facility] [address] [place] [address] Dr. Brissa Ma MCV (RBC) [Entitic vol] 93.9 fL Normal 80.0-94.[address] [facility] Comment on above: Performed By: #### E LEC, BUN, BNP, LIVER, CREA #### [facility] [address] [place] [address] Dr. Brissa Ma MONO # 0.5 103/ul Normal 0.3-0.[address] [facility] Comment on above: Performed By: #### E LEC, BUN, BNP, LIVER, CREA #### [facility] [address] [place] [address] Dr. Brissa Ma Monocytes/100 WBC (Bld) 7.8 % Normal 1.7-12.[address] [facility] Comment on above: Performed By: #### E LEC, BUN, BNP, LIVER, CREA #### [facility] [address] [place] [address] Dr. Brissa Ma NEUT # 3.0 103/ul Normal 1.4-6.[address] [facility] Comment on above: Performed By: #### E LEC, BUN, BNP, LIVER, CREA #### [facility] [address] [place] [address] Dr. Brissa Ma Neutrophils/100 WBC (Bld) 46.9 % Normal 43.0-75.[address] [facility] Comment on above: Performed By: #### E LEC, BUN, BNP, LIVER, CREA #### [facility] [address] [place] [address] Dr. Brissa Ma Platelet mean volume (Bld) [Entitic vol] 9.2 fL Critically low 9.5-13.[address] [facility] Comment on above: Performed By: #### E LEC, BUN, BNP, LIVER, CREA #### [facility] [address] [place] [address] Dr. Brissa Ma PLT 163 103/ul Normal 150-[address] [facility] Comment on above: Performed By: #### E LEC, BUN, BNP, LIVER, CREA #### [facility] [address] [place] [address] Dr. Brissa Ma RBC 4.59 106/ul Critically low 4.70-6.[address] [facility] Comment on above: Performed By: #### E LEC, BUN, BNP, LIVER, CREA #### [facility] [address] [place] [address] Dr. Brissa Ma WBC 6.4 103/ul Normal 4.0-11.[address] [facility] Comment on above: Performed By: #### E LEC, BUN, BNP, LIVER, CREA #### [facility] [address] [place] [address] Dr. Brissa Ma CREATININEon 01-22-2022 Creatinine [Mass/Vol] 1.47 mg/dL Critically high 0.70-1.[address] [facility] Comment on above: Performed By: #### E LEC, BUN, BNP, LIVER, CREA #### [facility] [address] [place] [address] Dr. Brissa Ma EGFR-AF MONTENEGRIN 56 mL/min/1.73m2 Critically low >=[address] [facility] Comment on above: Performed By: #### E LEC, BUN, BNP, LIVER, CREA #### [facility] [address] [place] [address] Dr. Brissa Ma EGFR-NON AF MONTENEGRIN 46 mL/min/1.73m2 Critically low >=[address] [facility] Comment on above: Performed By: #### E LEC, BUN, BNP, LIVER, CREA #### [facility] [address] [place] [address] Dr. Brissa Ma ELECTROLYTESon 01-22-2022 Anion gap [Moles/Vol] 10.1 mmol/L Normal [facility] Comment on above: Performed By: #### E LEC, BUN, BNP, LIVER, CREA #### [facility] [address] [place] [address] Dr. Brissa Ma Chloride [Moles/Vol] 106 mmol/L Normal 98-[address] [facility] Comment on above: Performed By: #### E LEC, BUN, BNP, LIVER, CREA #### [facility] [address] [address] [address] Brissa Ma CO2 [Moles/Vol] 28.4 mmol/L Normal 21.0-32.[address] [facility] Comment on above: Performed By: #### E LEC, BUN, BNP, LIVER, CREA #### [facility] [address] [place] [address] Dr. Brissa Ma Potassium [Moles/Vol] 4.5 mmol/L Normal 3.5-5.[address] [facility] Comment on above: Performed By: #### E LEC, BUN, BNP, LIVER, CREA #### [facility] [address] [place] [address] Dr. Brissa Ma Sodium [Moles/Vol] 140 mmol/L Normal 136-[address] [facility] Comment on above: Performed By: #### E LEC, BUN, BNP, LIVER, CREA #### [facility] [address] [place] [address] Dr. Brissa Ma GLYCOHEMOGLOBIN A1Con 2021 ADA RECOMMENDATION SEE BELOW Normal [facility] Comment on above: Result Comment: ADA RECOMMENDED LIMIT 4.0 - 6.0 ADA THERAPEUTIC TARGET < 7.0 ACTION SUGGESTED > 7.0 Performed By: #### A 1C #### [facility] [address] [place] [address] Dr. Brissa Ma Glucose [Mass/Vol] 223 mg/dL Normal [facility] Comment on above: Performed By: #### A 1C #### [facility] [address] [place] [address] Dr. Brissa Ma HbA1c (Bld) [Mass fraction] 9.4 % Critically high 4.5-6.[address] [facility] Comment on above: Performed By: #### A 1C #### [facility] [address] [place] [address] Dr. Brissa Ma LIVER PROFILEon 01-22-2022 Albumin [Mass/Vol] 3.6 g/dL Normal 3.4-5.[address] [facility] Comment on above: Performed By: #### E LEC, BUN, BNP, LIVER, CREA #### [facility] [address] [place] [address] Dr. Brissa Ma Albumin/Globulin [Mass ratio] 1.0 {ratio} Normal [facility] Comment on above: Performed By: #### E LEC, BUN, BNP, LIVER, CREA #### [facility] [address] [place] [address] Dr. Brissa Ma ALP [Catalytic activity/Vol] 86 U/L Normal 46-[address] [facility] Comment on above: Performed By: #### E LEC, BUN, BNP, LIVER, CREA #### [facility] [address] [place] [address] Dr. Brissa Ma ALT [Catalytic activity/Vol] 18 U/L Normal 16-[address] [facility] Comment on above: Performed By: #### E LEC, BUN, BNP, LIVER, CREA #### [facility] [address] [place] [address] Dr. Brissa Ma AST [Catalytic activity/Vol] 20 U/L Normal 15-[address] [facility] Comment on above: Performed By: #### E LEC, BUN, BNP, LIVER, CREA #### [facility] [address] [place] [address] Dr. Brissa Ma BILI, CONJUGATED 0.1 mg/dL Normal 0.0-0.[address] [facility] Comment on above: Performed By: #### E LEC, BUN, BNP, LIVER, CREA #### [facility] [address] [place] [address] Dr. Brissa Ma Bilirubin [Mass/Vol] 0.4 mg/dL Normal 0.2-1.[address] [facility] Comment on above: Performed By: #### E LEC, BUN, BNP, LIVER, CREA #### [facility] [address] [place] [address] Dr. Brissa Ma Globulin (S) [Mass/Vol] 3.7 g/dL Normal [facility] Comment on above: Performed By: #### E LEC, BUN, BNP, LIVER, CREA #### [facility] [address] [place] [address] Dr. Brissa Ma Protein [Mass/Vol] 7.3 g/dL Normal 6.4-8.[address] [facility] Comment on above: Performed By: #### E LEC, BUN, BNP, LIVER, CREA #### [facility] [address] [place] [address] Dr. Brissa Ma BUNon 10-08-2021 Urea nitrogen [Mass/Vol] 25.0 mg/dL Critically high 7.0-18.[address] [facility] Comment on above: Performed By: #### E LEC, BUN, BNP, LIVER, CREA #### [facility] [address] [place] [address] Dr. Brissa Ma CBC AUTO DIFFon 10-08-2021 BASO # 0.1 103/ul Normal 0.0-0.[address] [facility] Comment on above: Performed By: #### C BC #### [facility] [address] [place] [address] Dr. Brissa Ma Basophils/100 WBC (Bld) 0.7 % Normal 0.2-2.[address] [facility] Comment on above: Performed By: #### C BC #### [facility] [address] [place] [address] Dr. Brissa Ma EO # 0.1 103/ul Normal 0.0-0.[address] [facility] Comment on above: Performed By: #### C BC #### [facility] [address] [place] [address] Dr. Brissa Ma Eosinophils/100 WBC (Bld) 1.8 % Normal 0.9-7.[address] [facility] Comment on above: Performed By: #### C BC #### [facility] [address] [place] [address] Dr. Brissa Ma Erythrocyte distribution width (RBC) [Ratio] 14.1 % Normal 11.0-15.[address] [facility] Comment on above: Performed By: #### C BC #### [facility] [address] [place] [address] Dr. Brissa Ma Hematocrit (Bld) [Volume fraction] 41.9 % Critically low 42.0-54.[address] [facility] Comment on above: Performed By: #### C BC #### [facility] [address] [place] [address] Dr. Brissa Ma Hemoglobin (Bld) [Mass/Vol] 13.3 g/dL Critically low 14.0-18.[address] [facility] Comment on above: Performed By: #### C BC #### [facility] [address] [place] [address] Dr. Brissa Ma IG # 0.06 10e3/ul Critically high 0.00-0.[address] [facility] Comment on above: Performed By: #### C BC #### [facility] [address] [place] [address] Dr. Brissa Ma IG % 0.9 % Critically high 0.0-0.[address] [facility] Comment on above: Performed By: #### C BC #### [facility] [address] [place] [address] Dr. Brissa Ma LYMPH # 2.6 103/ul Normal 1.2-3.[address] [facility] Comment on above: Performed By: #### C BC #### [facility] [address] [place] [address] Dr. Brissa Ma Lymphocytes/100 WBC (Bld) 37.8 % Normal 20.5-60.[address] [facility] Comment on above: Performed By: #### C BC #### [facility] [address] [place] [address] Dr. Brissa Ma MANUAL DIFF REQ NO Normal [facility] Comment on above: Performed By: #### C BC #### [facility] [address] [place] [address] Dr. Brissa Ma MCH (RBC) [Entitic mass] 30.4 pg Normal 25.9-34.[address] [facility] Comment on above: Performed By: #### C BC #### [facility] [address] [place] [address] Dr. Brissa Ma MCHC (RBC) [Mass/Vol] 31.7 g/dL Normal 29.9-35.[address] [facility] Comment on above: Performed By: #### C BC #### [facility] [address] [place] [address] Dr. Brissa Ma MCV (RBC) [Entitic vol] 95.7 fL Critically high 80.0-94.[address] [facility] Comment on above: Performed By: #### C BC #### [facility] [address] [place] [address] Dr. Brissa Ma MONO # 0.6 103/ul Normal 0.3-0.[address] [facility] Comment on above: Performed By: #### C BC #### [facility] [address] [place] [address] Dr. Brissa Ma Monocytes/100 WBC (Bld) 8.4 % Normal 1.7-12.[address] [facility] Comment on above: Performed By: #### C BC #### [facility] [address] [place] [address] Dr. Brissa Ma NEUT # 3.4 103/ul Normal 1.4-6.[address] [facility] Comment on above: Performed By: #### C BC #### [facility] [address] [place] [address] Dr. Brissa Ma Neutrophils/100 WBC (Bld) 50.4 % Normal 43.0-75.[address] [facility] Comment on above: Performed By: #### C BC #### [facility] [address] [place] [address] Dr. Brissa Ma Platelet mean volume (Bld) [Entitic vol] 9.2 fL Critically low 9.5-13.[address] [facility] Comment on above: Performed By: #### C BC #### [facility] [address] [place] [address] Dr. Brissa Ma PLT 151 103/ul Normal 150-[address] [facility] Comment on above: Performed By: #### C BC #### [facility] [address] [place] [address] Dr. Brissa Ma RBC 4.38 106/ul Critically low 4.70-6.[address] [facility] Comment on above: Performed By: #### C BC #### [facility] [address] [place] [address] Dr. Brissa Ma WBC 6.8 103/ul Normal 4.0-11.[address] [facility] Comment on above: Performed By: #### C BC #### [facility] [address] [place] [address] Dr. Brissa Ma CREATININEon 10-08-2021 Creatinine [Mass/Vol] 1.30 mg/dL Normal 0.70-1.[address] [facility] Comment on above: Performed By: #### E LEC, BUN, BNP, LIVER, CREA #### [facility] [address] [place] [address] Dr. Brissa Ma EGFR-AF MONTENEGRIN >60 Normal >=[address] [facility] Comment on above: Performed By: #### E LEC, BUN, BNP, LIVER, CREA #### [facility] [address] [place] [address] Dr. Brissa Ma EGFR-NON AF MONTENEGRIN 53 mL/min/1.73m2 Critically low >=[address] [facility] Comment on above: Performed By: #### E LEC, BUN, BNP, LIVER, CREA #### [facility] [address] [place] [address] Dr. Brissa Ma ELECTROLYTESon 10-08-2021 Anion gap [Moles/Vol] 12.3 mmol/L Normal [facility] Comment on above: Performed By: #### E LEC, BUN, BNP, LIVER, CREA #### [facility] [address] [place] [address] Dr. Brissa Ma Chloride [Moles/Vol] 106 mmol/L Normal 98-[address] [facility] Comment on above: Performed By: #### E LEC, BUN, BNP, LIVER, CREA #### [facility] [address] [place] [address] Dr. Brissa Ma CO2 [Moles/Vol] 24.3 mmol/L Normal 21.0-32.[address] [facility] Comment on above: Performed By: #### E LEC, BUN, BNP, LIVER, CREA #### [facility] [address] [place] [address] Dr. Brissa Ma Potassium [Moles/Vol] 4.6 mmol/L Normal 3.5-5.[address] [facility] Comment on above: Performed By: #### E LEC, BUN, BNP, LIVER, CREA #### [facility] [address] [place] [address] Dr. Brissa Ma Sodium [Moles/Vol] 138 mmol/L Normal 136-[address] [facility] Comment on above: Performed By: #### E LEC, BUN, BNP, LIVER, CREA #### [facility] [address] [place] [address] Dr. Brissa Ma GLYCOHEMOGLOBIN A1Con 2021 ADA RECOMMENDATION SEE BELOW Normal [facility] Comment on above: Result Comment: ADA RECOMMENDED LIMIT 4.0 - 6.0 ADA THERAPEUTIC TARGET < 7.0 ACTION SUGGESTED > 7.0 Performed By: #### A 1C #### [facility] [address] [place] [address] Dr. Brissa Ma Glucose [Mass/Vol] 189 mg/dL Normal [facility] Comment on above: Performed By: #### A 1C #### [facility] [address] [place] [address] Dr. Brissa Ma HbA1c (Bld) [Mass fraction] 8.2 % Critically high 4.5-6.[address] [facility] Comment on above: Performed By: #### A 1C #### [facility] [address] [place] [address] Dr. Brissa Ma LIPID PROFILEon 10-08-2021 CHOL-HDL RATIO NORM SEE BELOW Normal [facility] Comment on above: Result Comment: 3.3 - 4.4 LOW RISK 4.4 - 7.1 AVERAGE RISK 7.1 - 11.0 MODERATE RISK >11.0 HIGH RISK Performed By: #### C LEELEE, ELEC, LIPID, LIVER, BUN #### [facility] [address] [place] [address] Dr. Brissa Ma Cholesterol [Mass/Vol] 75 mg/dL Normal <=200 [facility] Comment on above: Performed By: #### C LEELEE, ELEC, LIPID, LIVER, BUN #### [facility] [address] [address] [address] Brissa Ma Cholesterol in HDL [Mass/Vol] 33 mg/dL Critically low 40-[address] [facility] Comment on above: Performed By: #### C LEELEE, ELEC, LIPID, LIVER, BUN #### [facility] [address] [address] [address] Brissa Ma Cholesterol in LDL [Mass/Vol] 22.0 mg/dL Normal [facility] Comment on above: Performed By: #### C LEELEE, ELEC, LIPID, LIVER, BUN #### [facility] [address] [address] [address] Brissa Ma Cholesterol.total/Chol esterol in HDL [Mass ratio] 2.3 {ratio} Normal [facility] Comment on above: Performed By: #### C LEELEE, ELEC, LIPID, LIVER, BUN #### [facility] [address] [address] [address] Brissa Ma HDL NORMAL > or = 60 mg/dl - LO W CARDIOVASCULAR RISK <40 mg/dl - HIGH CARDIOVASCULAR RISK Normal [facility] Comment on above: Performed By: #### C LEELEE, ELEC, LIPID, LIVER, BUN #### [facility] [address] [address] [address] Brissa Ma LDL CALC NORMAL SEE BELOW Normal [facility] Comment on above: Result Comment: <100 mg/dl OPTIMAL 100 - 129 mg/dl NEAR OR ABOVE OPTIMAL 130 - 159 mg/dl BORDERLINE HIGH 160 - 189 mg/dl HIGH >190 mg/dl VERY HIGH Performed By: #### C LEELEE, ELEC, LIPID, LIVER, BUN #### [facility] [address] [address] [address] Brissa Ma Triglyceride [Mass/Vol] 100 mg/dL Normal <=[address] [facility] Comment on above: Performed By: #### C LEELEE, ELEC, LIPID, LIVER, BUN #### [facility] [address] [address] [address] Brissa Ma VLDL CALC 20.0 mg/dL Normal [facility] Comment on above: Performed By: #### C LEELEE, ELEC, LIPID, LIVER, BUN #### [facility] [address] [place] [address] Dr. Brissa Ma LIVER PROFILEon 10-08-2021 Albumin [Mass/Vol] 3.4 g/dL Normal 3.4-5.[address] [facility] Comment on above: Performed By: #### E LEC, BUN, BNP, LIVER, CREA #### [facility] [address] [place] [address] Dr. Brissa Ma Albumin/Globulin [Mass ratio] 1.0 {ratio} Normal [facility] Comment on above: Performed By: #### E LEC, BUN, BNP, LIVER, CREA #### [facility] [address] [place] [address] Dr. Brissa Ma ALP [Catalytic activity/Vol] 96 U/L Normal 46-[address] [facility] Comment on above: Performed By: #### E LEC, BUN, BNP, LIVER, CREA #### [facility] [address] [place] [address] Dr. Brissa Ma ALT [Catalytic activity/Vol] 24 U/L Normal 16-[address] [facility] Comment on above: Performed By: #### E LEC, BUN, BNP, LIVER, CREA #### [facility] [address] [place] [address] Dr. Brissa Ma AST [Catalytic activity/Vol] 14 U/L Critically low 15-[address] [facility] Comment on above: Performed By: #### E LEC, BUN, BNP, LIVER, CREA #### [facility] [address] [place] [address] Dr. Brissa Ma BILI, CONJUGATED 0.1 mg/dL Normal 0.0-0.[address] [facility] Comment on above: Performed By: #### E LEC, BUN, BNP, LIVER, CREA #### [facility] [address] [place] [address] Dr. Brissa Ma Bilirubin [Mass/Vol] 0.4 mg/dL Normal 0.2-1.[address] [facility] Comment on above: Performed By: #### E LEC, BUN, BNP, LIVER, CREA #### [facility] [address] [address] [address] Brissa Ma Globulin (S) [Mass/Vol] 3.5 g/dL Normal [facility] Comment on above: Performed By: #### E LEC, BUN, BNP, LIVER, CREA #### [facility] [address] [address] [address] Brissa Ma Protein [Mass/Vol] 6.9 g/dL Normal 6.4-8.[address] [facility] Comment on above: Performed By: #### E LEC, BUN, BNP, LIVER, CREA #### [facility] [address] [address] [address] Brissa Ma Vital Signs Date Time Vital Sign Value Performing Clinician Facility 04-18-2024 12:54-0500 Body height 170.2 cm Veda Petznick DO Work Phone: [facility] 04-18-2024 12:54-0500 Body mass index (BMI) [Ratio] 27.88 kg/m2 Veda Petznick DO Work Phone: [facility] 04-18-2024 12:54-0500 Body temperature 98.2 [degF] Veda Petznick DO Work Phone: [facility] 04-18-2024 12:54-0500 Body weight 80.74 kg Veda Petznick DO Work Phone: [facility] 04-18-2024 12:54-0500 Diastolic blood pressure 78 mm[Hg] Veda Petznick DO Work Phone: [facility] 04-18-2024 12:54-0500 Heart rate 76 /min Veda Petznick DO Work Phone: [facility] 04-18-2024 12:54-0500 SaO2% (BldA) [Mass fraction] 97 % Veda Petznick DO Work Phone: [facility] 04-18-2024 12:54-0500 Systolic blood pressure 126 mm[Hg] Veda Petznick DO Work Phone: [facility] 03-09-2024 15:16-0500 Body height 170.2 cm Stephanie Steward MD Work Phone: [facility] 03-09-2024 15:16-0500 Body mass index (BMI) [Ratio] 28.19 kg/m2 Stephanie Steward MD Work Phone: [facility] 03-09-2024 15:16-0500 Body weight 81.65 kg Stephanie Steward MD Work Phone: [facility] 03-09-2024 15:16-0500 Diastolic blood pressure 70 mm[Hg] Stephanie Steward MD Work Phone: [facility] 03-09-2024 15:16-0500 Heart rate 68 /min Stephanie Steward MD Work Phone: [facility] 03-09-2024 15:16-0500 Systolic blood pressure 120 mm[Hg] Stephanie Steward MD Work Phone: [facility] 01-18-2024 09:01-0500 Body height 170.2 cm Veda Petznick DO Work Phone: [facility] 01-18-2024 09:01-0500 Body mass index (BMI) [Ratio] 28.19 kg/m2 Veda Petznick DO Work Phone: [facility] 01-18-2024 09:01-0500 Body temperature 98.01 [degF] Veda Petznick DO Work Phone: [facility] 01-18-2024 09:01-0500 Body weight 81.65 kg Veda Petznick DO Work Phone: [facility] 01-18-2024 09:01-0500 Diastolic blood pressure 66 mm[Hg] Veda Petznick DO Work Phone: [facility] 01-18-2024 09:01-0500 Heart rate 92 /min Veda Petznick DO Work Phone: [facility] 01-18-2024 09:01-0500 SaO2% (BldA) [Mass fraction] 94 % Veda Petznick DO Work Phone: [facility] 01-18-2024 09:01-0500 Systolic blood pressure 110 mm[Hg] Veda Petznick DO Work Phone: [facility] 12-10-2023 13:27-0400 Body height 170.2 cm Kennedy Camara DPM Work Phone: [facility] 12-10-2023 13:27-0400 Body mass index (BMI) [Ratio] 28.04 kg/m2 Kennedy Camara DPM Work Phone: [facility] 12-10-2023 13:27-0400 Body weight 81.19 kg Kennedy Camara DPM Work Phone: [facility] 12-10-2023 13:27-0400 Respiratory rate 17 /min Kennedy Camara DPM Work Phone: [facility] 12-03-2023 13:58-0400 Body height 170.2 cm Veda Petznick DO Work Phone: [facility] 12-03-2023 13:58-0400 Body mass index (BMI) [Ratio] 28.16 kg/m2 Veda Petznick DO Work Phone: [facility] 12-03-2023 13:58-0400 Body temperature 96.4 [degF] Veda Petznick DO Work Phone: [facility] 12-03-2023 13:58-0400 Body weight 81.56 kg Veda Petznick DO Work Phone: [facility] 12-03-2023 13:58-0400 Diastolic blood pressure 68 mm[Hg] Veda Petznick DO Work Phone: [facility] 12-03-2023 13:58-0400 Heart rate 74 /min Veda Petznick DO Work Phone: [facility] 12-03-2023 13:58-0400 SaO2% (BldA) [Mass fraction] 98 % Veda Rome DO Work Phone: [facility] 12-03-2023 13:58-0400 Systolic blood pressure 102 mm[Hg] Veda Rome DO Work Phone: [facility] 07-24-2023 13:40-0400 Body height 167.6 cm Henrry Issa MD Work Phone: [facility] 07-24-2023 13:40-0400 Body mass index (BMI) [Ratio] 30.02 kg/m2 Henrry Issa MD Work Phone: [facility] 07-24-2023 13:40-0400 Body weight 84.37 kg Henrry Issa MD Work Phone: [facility] 07-24-2023 13:40-0400 Diastolic blood pressure 74 mm[Hg] Henrry Issa MD Work Phone: [facility] 07-24-2023 13:40-0400 Heart rate 82 /min Henrry Issa MD Work Phone: [facility] 07-24-2023 13:40-0400 Systolic blood pressure 134 mm[Hg] Henrry Issa MD Work Phone: [facility] 04-08-2023 13:24-0500 Body height 170.2 cm Negro BROOKS Work Phone: [facility] 04-08-2023 13:24-0500 Body mass index (BMI) [Ratio] 28.19 kg/m2 Negro BROOKS Work Phone: [facility] 04-08-2023 13:24-0500 Body weight 81.65 kg Negro BROOKS Work Phone: [facility] 01-14-2023 14:28-0500 Body height 170.2 cm Henrry Issa MD Work Phone: [facility] 01-14-2023 14:28-0500 Body mass index (BMI) [Ratio] 30.07 kg/m2 Henrry Issa MD Work Phone: [facility] 01-14-2023 14:28-0500 Body weight 87.09 kg Henrry Issa MD Work Phone: [facility] 01-14-2023 14:28-0500 Diastolic blood pressure 60 mm[Hg] Henrry Issa MD Work Phone: [facility] 01-14-2023 14:28-0500 Heart rate 92 /min Henrry Issa MD Work Phone: [facility] 01-14-2023 14:28-0500 Systolic blood pressure 106 mm[Hg] Henrry Issa MD Work Phone: [facility] 01-02-2023 11:43-0400 Body mass index (BMI) [Ratio] 30.4 kg/m2 Hugo Moser Work Phone: [facility] 12-31-2022 13:51-0400 Diastolic blood pressure 70 mm[Hg] Hugo Moser Work Phone: [facility] 12-31-2022 13:51-0400 Heart rate 83 /min Hugo Moser Work Phone: [facility] 12-31-2022 13:51-0400 Respiratory rate 14 /min Hugo Moser Work Phone: [facility] 12-31-2022 13:51-0400 SaO2% (BldA) [Mass fraction] 98 % Hugo Moser Work Phone: [facility] 12-31-2022 13:51-0400 Systolic blood pressure 112 mm[Hg] Hugo Valshaina Work Phone: [facility] 12-31-2022 12:00-0400 Body temperature 97.8 [degF] Hugo Moser Work Phone: [facility] 12-31-2022 06:00-0400 Body weight 86.5 kg JR Arias Shanti Work Phone: [facility] 12-30-2022 15:37-0400 Inhaled oxygen flow rate 6 L/min JR Hugo Moser Work Phone: [facility] 12-30-2022 15:12-0400 Body height 170.18 cm JR Hugo Moser Work Phone: [facility] 12-30-2022 15:12-0400 Body mass index (BMI) [Ratio] 30.4 kg/m2 JR Hugo Moser Work Phone: [facility] Encounters Encounter Date Encounter Type Care Provider Facility Start: 04-18-2024 End: 04-18-2024 Office outpatient visit 25 minutes Veda Rome DO Work Phone: [facility] [phone] Comment on above: Type 2 diabetes enriqueta 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, without long-term current use of insulin ([facility]) ([facility] Start: 04-18-2024 End: 04-18-2024 ambulatory VEDA ROME Not Available Start: 04-15-2024 End: 04-15-2024 Telephone encounter Veda Rome DO Work Phone: [facility] [phone] Comment on above: Appointment Confirma tion Start: 04-15-2024 End: 04-15-2024 Patient encounter nataliya Hugo Moser JR Work Phone: [facility] Start: 04-15-2024 End: 04-15-2024 ambulatory Hugo Ferris Shanti VALDEZ Work Phone: [facility] Work Phone: Start: 04-15-2024 Non-patient / Non-visit Melvin Tiwarishaina Work Phone: [facility] Start: 03-09-2024 End: 03-09-2024 Office outpatient visit 25 minutes Stephanie Steward MD Work Phone: [facility] Comment on above: Pacemaker (Primary D x); AV block, Mobitz II; Mixed hyperlipidemia; Paroxysmal atrial fibrillation (Multi); Mild tricuspid regurgitation; Diabetes mellitus type II, non insulin dependent (Multi); BMI 28.0-28.9,adult; Never smoked tobacco; Overweight Start: 03-09-2024 End: 03-09-2024 ambulatory [facility] Ambulatory Start: 02-17-2024 End: 02-17-2024 Bamboo flowsheet Gini Elias Stepjere DO Work Phone: [facility] Start: 02-17-2024 End: 02-17-2024 Bamboo flowsheet Jr. Gini Elias Stepanic DO Work Phone: [facility] Start: 02-17-2024 End: 02-17-2024 Office outpatient visit 15 minutes Jr. Gini Griffin Stepjere DO Work Phone: [facility] Comment on above: Rotator cuff arthrop athy, right (Primary Dx); Shoulder arthritis Start: 02-17-2024 End: 02-17-2024 ambulatory GINI RAMIRES Not Available Start: 01-18-2024 End: 01-18-2024 Bamboo flowsheet Veda Mickey Rome DO Work Phone: [facility] Start: 01-18-2024 End: 01-18-2024 Bamboo flowsheet Veda Rome DO Work Phone: [facility] Start: 01-18-2024 End: 01-18-2024 Office outpatient visit 25 minutes Veda Rome DO Work Phone: [facility] 230 Comment on above: Type 2 diabetes enriqueta 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, without long-term current use of insulin (HCC) ([facility]); Type 2 diabetes mellitus with hyperglycemia, without long-term current use of insulin ([facility]) Start: 01-18-2024 End: 01-18-2024 ambulatory VEDA ROME Not Available Start: 01-15-2024 End: 01-15-2024 ambulatory [facility] Facility:[facility] Start: 01-15-2024 Non-patient / Non-visit [facility] Start: 01-14-2024 End: [...] 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 ([facility]) (Primary Dx); Pain due to onychomycosis of toenails of both feet Start: 12-10-2023 End: 12-10-2023 ambulatory KENNEDY CAMARA Not Available Start: 12-03-2023 End: 12-03-2023 Office outpatient new 45 minutes Veda Rome DO Work Phone: [facility] Comment on above: Type 2 diabetes enriqueta 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, without long-term current use of insulin (HCC) (CMS/HCC) (Primary Dx); Type 2 diabetes mellitus with hyperglycemia, without long-term current use of insulin (CMS/HCC) Start: 12-03-2023 End: 12-03-2023 ambulatory VEDA ROME Not Available Start: 12-02-2023 End: 12-02-2023 Telephone encounter Veda Rome DO Work Phone: [facility] Start: 12-01-2023 Non-patient / Non-visit [facility] Start: 10-16-2023 End: 10-16-2023 Patient encounter procedure JR Hugo Moser Work Phone: [facility] Start: 10-16-2023 End: 10-16-2023 ambulatory JR Hugo Moser Work Phone: [facility] Work Phone: Start: 08-17-2023 End: 08-17-2023 ambulatory GINI RAMIRES Not Available Start: 07-24-2023 End: 07-24-2023 Office outpatient visit 25 minutes Henrry Issa MD Work Phone: [facility] Comment on above: Non-ischemic cardiom yopathy (Multi) (Primary Dx); AV block, Mobitz II; Pacemaker; Mixed hyperlipidemia; BMI 30.0-30.9,adult Start: 07-24-2023 End: 07-24-2023 ambulatory [facility] Ambulatory Start: 07-15-2023 End: 07-15-2023 ambulatory [facility] Facility:[facility] Start: 05-11-2023 End: 05-11-2023 ambulatory GINI RAMIRES Not Available Start: 04-15-2023 End: 04-15-2023 ambulatory JR Hugo Moser Work Phone: [facility] Work Phone: Start: 04-15-2023 End: 04-15-2023 Patient encounter procedure JR Arias Shanti Work Phone: [facility] Start: 04-08-2023 End: 04-08-2023 Office outpatient new 45 minutes Negro BROOKS Work Phone: [facility] Comment on above: Acute pain of right shoulder; Rotator cuff arthropathy, right; Arthritis of right acromioclavicular joint Start: 01-14-2023 End: 01-14-2023 Office outpatient visit 25 minutes Henrry Issa MD Work Phone: [facility] Comment on above: AV block, Mobitz II; Pacemaker; Obesity (BMI 30.0-34.9) Start: 01-08-2023 End: 01-08-2023 ambulatory JR Hugo Moser Work Phone: [facility] Work Phone: Start: 01-08-2023 End: 01-08-2023 Patient encounter procedure JR Arias Karieshaina Work Phone: [facility] [place] Work Phone: Start: 12-28-2022 End: 12-31-2022 Evaluation and management of inpatient JR Hugo Moser Work Phone: [facility] [place] [facility] Work Phone: Start: 05-19-2022 End: 05-20-[address] HUGO MOSER Facility:[facility] Start: 01-22-2022 End: 01-23-[address] HUGO MOSER Facility:[facility] Start: 10-09-2021 Encounter for genera l adult medical examination without abnormal findings DR HUGO MOSER [facility] Start: 10-08-2021 End: 10-09-[address] HUGO MOSER Facility:[facility] Start: 10-08-2021 End: 10-09-2021 Encounter for general adult medical examination without abnormal findings DR HUGO MOSER Facility:[facility] Procedures Date Procedure Procedure Detail Performing Clinician Start: 04-18-2024 Hemoglobin glycosylated a1c Veda Rome DO Work Phone: Start: 03-09-2024 Ecg routine ecg w/le ast 12 lds w/i&r Stephanie Steward MD Work Phone: Start: 01-18-2024 Hemoglobin glycosylated a1c Veda Rome DO Work Phone: Start: 04-15-2023 Plain chest X-ray JR Haven Moser Work Phone: Start: 04-08-2023 End: 04-08-2023 Arthrocentesis aspir&/inj major jt/bursa w/o us Negro BROOKS Work Phone: Start: 01-08-2023 Plain chest X-ray JR Haven yeimy Tiwarishaina Work Phone: Start: 12-31-2022 Plain chest X-ray JR yeimy Moser Work Phone: Start: 12-30-2022 Plain chest X-ray JR yeimy Tiwarishaina Work Phone: Start: 12-30-2022 Implantation of card iac pacemaker JR Hugo Moser Work Phone: Plan of Treatment Date Care Activity Detail Author Start: 11-09-2024 End: 11-09-2024 Patient encounter procedure 11/09/2024 11:00 AM EDT Office Visit [facility] [address] [place] [phone] Stephanie Steward MD [address] [place] [address] [facility] Start: 07-19-2024 End: 07-19-2024 Patient encounter procedure 07/19/2024 9:30 AM EDT Office Visit [facility] [address] [place] [phone] Veda Rome, DO [address] [place] [address] [facility] Start: 04-18-2024 End: 04-18-2024 Patient encounter procedure 04/18/2024 1:00 PM EST Office Visit [facility] [address] [place] [address] Veda Rome, DO [address] [place] [address] [facility] Start: 03-09-2024 End: 03-09-2024 Patient encounter procedure 03/09/2024 10:50 AM EST Office Visit [facility] [address] [place] [phone] Stephanie Steward MD [address] [place] [address] [facility] Start: 02-17-2024 End: 02-17-2024 Patient encounter procedure [facility] Comment on above: Arrived Start: 01-15-2024 End: 01-15-2024 Patient encounter procedure 01/15/2024 2:00 PM EST Office Visit [facility] [address] [place] [phone] Veda Rome, DO [address] [place] [address] [facility] Start: 12-10-2023 End: 12-10-2023 Patient encounter procedure [facility] Comment on above: Type 2 diabetes enriqueta itus without complication, unspecified whether senior care insulin use ([facility]) (Primary Dx); Pain due to onychomycosis of toenails of both feet Start: 12-03-2023 End: 12-03-2023 Patient encounter procedure 12/03/2023 2:00 PM EDT Office Visit [facility] [address] [place] [phone] Veda Rome, [address] [place] [address] [facility] 230 Start: 11-01-2023 COVID-19 Vaccine ( season) COVID-19 Vaccine ( season) [facility] Start: 11-01-2023 Influenza vaccination [facility] Start: 07-24-2023 End: 07-24-2023 Patient encounter procedure 07/24/2023 1:40 PM EDT Office Visit [facility] [address] [facility] [address] [place] [phone] Henrry Issa MD [address] [facility] [address] [place] [address] [facility] Start: 05-11-2023 End: 05-11-2023 Patient encounter procedure 05/11/2023 10:45 AM EDT Office Visit [facility] [address] [place] [phone] Jr. Gini Cárdenas, DO [address] [place] [address] [facility] Start: 12-31-2022 [facility] Start: 12-30-2022 [facility] Start: 12-28-2022 Insertion of Pacemak er Lead into Right Atrium, Percutaneous Approach Insertion of Pacemaker Lead into Right Atrium, Percutaneous Approach [facility] Start: 12-28-2022 Insertion of Pacemak er Lead into Right Ventricle, Percutaneous Approach Insertion of Pacemaker Lead into Right Ventricle, Percutaneous Approach [facility] Start: 12-28-2022 Insertion of Pacemak er, Dual Chamber into Chest Subcutaneous Tissue and Fascia, Open Approach Insertion of Pacemaker, Dual Chamber into Chest Subcutaneous Tissue and Fascia, Open Approach [facility] Start: 12-28-2022 Hospital admission [facility] Start: 12-28-2022 Referral to marionette performer [facility] Start: 10-31-2022 COVID-19 Vaccine ( season) COVID-19 Vaccine ( season) [facility] Start: 10-31-2022 Influenza vaccination Influenza Vacc ine (#1) [facility] Start: 02-05-2022 COVID-19 Vaccine (4 - Moderna series) COVID-19 Vaccine (4 - Moderna series) [facility] Start: 05-18-2019 Pneumococcal vaccination Pneum ococcal Vaccine (2 of 2 - PCV) [facility] Start: 05-18-2019 Pneumococcal Vaccine : 65+ Years (2 - PCV) Pneumococcal Vaccine: 65+ Years (2 - PCV) [facility] Start: 05-18-2019 Pneumococcal Vaccine : 65+ Years (2 of 2 - PCV) Pneumococcal Vaccine: 65+ Years (2 of 2 - PCV) [facility] Start: 08-18-2014 RSV High Risk: (Elde rly (60+) or Population) (1 - 1-dose 75+ series) RSV High Risk: (Elderly (60+) or Population) (1 - 1-dose 75+ series) [facility] Start: 1999 RSV patient s and/or patients aged 60+ years (1 - 1-dose 60+ series) RSV patients and/or patients aged 60+ years (1 - 1-dose 60+ series) [facility] Start: 08-18-1989 Zoster Vaccines (1 of 2) Zoste r Vaccines (1 of 2) [facility] Start: 08-18-1961 DTaP/Tdap/Td Vaccine s (1 - Tdap) DTaP/Tdap/Td Vaccines (1 - Tdap) [facility] Start: 08-18-1958 Urine screening for protein Diabetes: Urine Protein Screening [facility] Start: 08-18-1949 Diabetic foot examination Diabetes: Foot Exam [facility] Start: 08-18-1949 Glaucoma screening Diabetes: R etinopathy Screening [facility] Start: 1939 Hemoglobin A1c measurement Diabetes: Hemoglobin A1C [facility] Start: 1939 Lipid panel Lipid Panel [facility] Start: 1939 Medicare Annual Well ness Visit Medicare Annual Wellness Visit (AWV) [facility] Start: 1939 Urine screening for protein Diabetes: Urine Protein Screening [facility] Patient Education Clindamycin (Systemic) [facility] Work Phone: Patient referral [facility] Work Phone: XR Shoulder - right 2 Views XR shoulder 2+ views right Imaging Routine Acute pain of right shoulder 04/08/2023 1:21 PM EST [facility] Work Phone: Immunizations Immunization Date Immunization Notes Care Provider Francis covington 12-11-2021 Moderna COVID-19 vaccine, bivalent, blue cap/goff label *Check age/dose* Henrry Issa MD Work Phone: [facility] 01-31-2021 influenza, injectabl e, quadrivalent, preservative free Henrry Issa MD Work Phone: [facility] Work Phone: 01-31-2021 influenza virus vacc ine, unspecified formulation Henrry Issa MD Work Phone: [facility] Work Phone: 05-17-2018 influenza, injectabl e, quadrivalent, preservative free Henrry Issa MD Work Phone: [facility] Work Phone: 05-17-2018 pneumococcal polysaccharide vaccine, 23 valent Henrry Issa MD Work Phone: [facility] Work Phone: Payers Date Payer Category Payer Self-pay 2023 Private Health Insurance [employer] [id number] 2022 Medicare supplementa l policy (as second payer) [employer] [id number] 2022 Unknown [id number] 2004 Medicare [id number]. [id number] 1959 Medicare [id number] 1959 Unknown [id number] 1939 Unknown [id number] 2.16.840.1.983402.3.579. 2.593 1939 Unknown [id number] 2.16.840.1.446926.3.579. 2.593 1939 Unknown [id number] 2.16.840.1.765212.3.579. 2.593 1939 Unknown [id number] 2.16.840.1.202355.3.579. 2.1244 1939 Unknown [id number] 2.16.840.1.516887.3.579. 2.1244 1939 Unknown [id number] 2.16.840.1.551669.3.579. 2.1259 1939 Unknown [id number] 2.16.840.1.306079.3.579. 2.1259 1939 Unknown [id number] 2.16840.1.508231.3.579. 2.1259 1939 Unknown [id number] 2.16.840.1.762351.3.579. 2.1259 1939 Unknown [id number] 2.16.840.1.901015.3.579. 2.1259 1939 Unknown [id number] 2.16.840.1.814079.3.579. 2.1259 1939 Unknown [id number] 2.16.840.1.138381.3.579. 2.1259 Unknown [id number] 2.16.840.1.371873.3.579. 2.531 Unknown [id number] 2.16.840.1.657313.3.579. 2.531 Unknown [id number] 2.16.840.1.333224.3.579. 2.531 Unknown [id number] 2.16.840.1.980203.3.579. 2.531 Social History Date Type Detail Facility Start: 12-30-2022 End: 04-08-2023 Tobacco smoking status NHIS Never smoked tobacco (finding) [facility] Start: 1940 Sex Assigned At Male F [facility] Start: 01-14-2023 End: 04-08-2023 Tobacco use and exposure Smokeless tobacco non-user [facility] Work Phone: Start: 01-14-2023 End: 03-09-2024 Alcohol intake Lifetime non-drinker (finding) [facility] Work Phone: Start: 01-14-2023 End: 04-18-2024 History of Social function [facility] Work Phone: Start: 01-14-2023 End: 04-18-2024 Tobacco use panel [facility] Work Phone: Start: 1940 Sex Assigned At Not on file [facility] Work Phone: Start: 01-04-2023 End: 03-09-2024 Exposure to SARS-CoV-2 (event) Not sure [facility] Start: 04-08-2023 End: 12-10-2023 Alcohol intake Current drinker of alcohol (finding) [facility] Start: 01-19-2024 End: 04-16-2024 Sex Male (finding) [facility] Start: 01-18-2024 End: 04-18-2024 Alcoholic beverage intake Ex-drinker (finding) [facility] How often to you hav e a drink containing alcohol? Never [facility] How many standard drinks containing alcohol do you have on a typical day? Patient does not drink [facility] Medical Equipment Procedure Code Equipment Code Equipment Origin al Text Equipment Identifier Dates Insertion, pacemaker Endocardial pacing lead [id number] FDA Start: 12-30-2022 Insertion, pacemaker Endocardial pacing lead [id number] FDA Start: 12-30-2022 Insertion, pacemaker Dual-chamber implantable pacemaker, rate-responsive [id number] FDA Start: 12-30-2022 Goals Date Patient Goal Desired Activity /State Functional Status Date Assessment Result Facility 12-31-2022 Functional status Patient at Baseline [facility] Work Phone: Mental Status Date Assessment Result Facility 12-31-2022 Cognitive function Cognitive Sta tus Patient at Baseline [facility] Work Phone: Clinical Notes 12-28-2022 to 04-18-2024 Veda Rome DO - 04/18/2024 2:07 PM Narinder Rome DO - 04/18/2024 1:00 PM ESTTelephone Encounter - Elba Platt - 04/15/2024 1:06 PM Smiley Steward MD - 03/09/2024 3:20 PM EST Note Date & Type Note Facility 04-18-2024 History of Present illness Narrative Associated Problem(s): Type 2 diabetes mell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, without long-term current use of insulin (HCC) ([facility]) During the appointment today all pertinent labs, [...] any problems or questions. Emmanuel Jiménez is making improvements and encouraged on this. Will stop precose as I doubt this is doing much for him. Would not recommend using lantus instead of tresiba unless he splits up the lantus and does 6 units bid on this. He doesn't want to do this. Images from the original note were not included. Emmanuel Jiménez is a 83 y.o. male presents with chief complaint of Diabetes HPI: Diabetes Mellitus Follow-up: Emmanuel Jiménez is here for follow-up evaluation of diabetes mellitus. The initial diagnosis of diabetes was made around 2019 Previously tried medications include: Jardiance Complications include: none He has been checking his blood glucose regularly. Bg running 100-130's in the am. Last A1c: 10.4 (01/18/24) Eye exam: 2023- Dr. Garrett/ Nicole Crum Current concerns include: Bg levels: improving. Stopped eating melons and bananas Diet: Trying to limit portions and carbs Drinks: Water, coffee with sweetened creamer Exercise: none right now Hypoglycemia: none Spouse has boxes of Lantus at home in the fridge she is not able to use. She is in a halfway facility right now. He is asking if he could use it. SUBJECTIVE: PROBLEM LIST SOCIAL ALLERGIES: Patient Active Problem List Diagnosis HTN (hypertension) (CMS/HCC) Mixed hyperlipidemia (CMS/HCC) Mobitz [...] use: Never No Known Allergies Synopsis SmartLink 04/18/2024 01/20/2024 00:00 Antidiabetic medications Acarbose 100 mg Daily PO (100 MG TABS)-Discontinued Take 100 mg by mouth Daily Empagliflozin 25 mg q AM PO 25 mg q AM PO Insulin Degludec 12 Units Daily SC 12 Units Daily SC metFORMIN HCl 1,000 mg BID with meals PO 1,000 mg BID with meals PO Labs [facility] HEMOGLOBIN A1C/HEMOGLOBIN.TOTAL:MFR:PT:BLD:Q N: 8.1 Outpatient prescription Medication marked as long-term Patient-reported [...] Negative for polydipsia, polyphagia and polyuria. OBJECTIVE: 04/18/2024 12:54 PM 01/18/2024 9:01 AM 12/10/2023 1:27 PM Vitals BMI 27.88 kg/m2 28.19 kg/m2 28.04 kg/m2 Systolic 126 110 Diastolic 78 66 Heart Rate 76 92 Temp 98.2 F 98 F Resp 17 Height (in) 5' 7 5' 7 5' 7 Weight (lb) 178 180 179 Visit Report Report Report Report Physical Exam [...] This Visit Type 2 diabetes mell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, without long-term current use of insulin (HCC) ([facility]) During the appointment today all pertinent labs, [...] any problems or questions. Emmanuel Jiménez is making improvements and encouraged on this. Will stop precose as I doubt this is doing much for him. Would not recommend using lantus instead of tresiba unless he splits up the lantus and does 6 units bid on this. He doesn't want to do this. Relevant Orders POCT glycosylated hemoglobin (Hb A1C) docked device (Completed) Follow up in about 3 months (around 07/16/2024) for Recheck. Patient's Medications New Prescriptions No medications on file Previous Medications DOCUSATE CALCIUM (STOOL SOFTENER PO) Take by mouth EMPAGLIFLOZIN (JARDIANCE) 25 MG Take 1 tablet (25 mg) by mouth in the morning. EZETIMIBE (ZETIA) 10 MG TABLET Take 5 mg by mouth in the morning. FINERENONE (KERENDIA PO) Take 20 mg by mouth INSULIN DEGLUDEC (TRESIBA FLEXTOUCH) 100 UNIT/ML INJECTION Inject 12 Units under the skin Daily METFORMIN (GLUCOPHAGE) 500 MG TABLET Take 2 tablets (1,000 mg) by mouth in the morning and 2 tablets (1,000 mg) in the evening. Take with meals. PEN NEEDLE 33G X 4 MM MISC Injections subcutaneous daily ROSUVASTATIN (CRESTOR) 40 MG TABLET Take 40 mg by mouth in the morning. Modified Medications No medications on file Discontinued Medications ACARBOSE (PRECOSE) 100 MG TABLET Take 100 mg by mouth Daily I have reviewed and reconciled the history and medication list with the patient today. documented in this encounter [facility] 04-15-2024 Telephone encounter Note LVM appointment reminder [facility] 04-15-2024 Miscellaneous Notes LVM appointment reminder documented in this encounter [facility] 03-09-2024 History of Present illness Narrative Karen [...] have been followed by his PCP. Assessment/recommendations: [id number] AV block status post permanent pacemaker 2022 [...] discussion and plan. documented in this encounter [facility] Work Phone: 03-09-2024 Instructions Ashtyn Rendon RN [...] up per routine documented in this encounter [facility] Work Phone: 02-17-2024 History of Present illness [...] requiring urgent evaluation. documented in this encounter [facility] 01-18-2024 History of Present illness Narrative Associated Problem(s): Type 2 diabetes mellitus with hyperglycemia, without long-term current use of insulin ([facility]) During the appointment today all pertinent labs, [...] without long-term current use of insulin (HCC) ([facility]) Social History Tobacco Use Smoking status: Never [...] long-term Patient-reported The ASCVD Risk score (Caitie DK, et al., 2019) failed to calculate [...] hyperglycemia, without long-term current use of insulin ([facility]) During the appointment today all pertinent labs, [...] without long-term current use of insulin (HCC) ([facility]) Relevant Medications insulin glargine (Lantus SoloStar) 100 [...] the patient today. documented in this encounter [facility] 01-14-2024 Telephone encounter Note noted [facility] 01-14-2024 Miscellaneous Notes noted P/c to remind pt of appointment. Pt had to reschedule because his has testing all day tomorrow. Rescheduled for Thursday at 9:15. He voiced understanding documented in this encounter [facility] 01-14-2024 Telephone encounter Note P/c to remind pt of appointment. Pt had to reschedule because his has testing all day tomorrow. Rescheduled for Thursday at 9:15. He voiced understanding [facility] 12-10-2023 History of Present illness Narrative Patient: Emmanuel Jiménez : 1940 PCP: uHgo Moser MD SUBJECTIVE This is a 83 [...] History: Past Medical History: Diagnosis Date Diabetes ([facility]) Hx of deep venous thrombosis Hyperlipemia ([facility]) Hypertension ([facility]) Medications: Current Outpatient Medications: empagliflozin (Jardiance) 25 [...] Negative palpable pedal pulses bilaterally NEURO: 5.07 Weldon Claudia monofilament test intact to digits and forefoot bilaterally 125Hz tuning fork diminished to 1st MPJ bilaterally ORTHO: Positive pain on palpation to nails 1 through 10 ASSESSMENT 1. Type 2 diabetes mellitus without complication, unspecified whether senior care insulin use ([facility]) 2. Pain due to onychomycosis of toenails [...] Kennedy Camara DPM documented in this encounter [facility] 12-03-2023 History of Present illness Narrative Associated Problem(s): Type 2 diabetes mellitus with hyperglycemia, without long-term current use of insulin ([facility]) During the appointment today all pertinent labs, [...] occasion (cinnamon toast crunch- low sugar) Lunch: [place] (ham), fruit (peaches, pears, melon) Dinner: Varies- [...] hyperglycemia, without long-term current use of insulin ([facility]) HTN (hypertension) ([facility]) Mixed hyperlipidemia ([facility]) Mobitz type II atrioventricular block Localized, primary osteoarthritis of hand DVT (deep venous thrombosis) ([facility]) Non-ischemic cardiomyopathy ([facility]) Pacemaker Type 2 diabetes mell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, without long-term current use of insulin ([facility]) ([facility]) Social History Tobacco Use Smoking status: Never [...] hyperglycemia, without long-term current use of insulin ([facility]) During the appointment today all pertinent labs, [...] without long-term current use of insulin (HCC) ([facility]) - Primary Relevant Medications empagliflozin (Jardiance) 25 [...] the patient today. documented in this encounter [facility] 12-02-2023 Telephone encounter Note Pt's answered the phone. Reminded her of her 's appointment tomorrow with Dr. Mccollum. voiced understanding [facility] 12-02-2023 Miscellaneous Notes Pt's answered the phone. Reminded her of her 's appointment tomorrow with Dr. Mccollum. voiced understanding documented in this encounter [facility] 07-24-2023 History of Present [...] Attestation By signing my name below, IKaylynn LLUVIA , Scribe attest that this documentation has [...] discussion and plan. documented in this encounter [facility] Work Phone: 07-24-2023 Instructions Sal Henson MA [...] of your visit. documented in this encounter [facility] Work Phone: 04-08-2023 History of Present illness [...] with 2ml of 2 % lidocaine (Code 28666 RT) Procedure, treatment alternatives, risks and benefits [...] evaluation. TODD Driver documented in this encounter [facility] 01-14-2023 History of Present [...] Obesity (BMI 30.0-34.9) documented in this encounter [facility] Work Phone: 01-14-2023 Instructions Lupe Burns LPN [...] up per routine documented in this encounter [facility] Work Phone: 12-31-2022 Progress note Note Date/Time December 31, 2022 10:25am [facility] [address] [place] [address] Cardiology Progress Note Signed Patient: Emmanuel Jiménez MR#: [id number] : 1940 Acct:[id number] Age/Sex: 82 / M Adm Date: 3 Loc: Room: [address] [place] [address] Type: ADM IN Attending Dr: Katie Osborne [...] % (Auto) 61.2 Lymph % (Auto) 27.7 Edwards % (Auto) 8.9 Eos % (Auto) 1.6 Baso % (Auto) 0.6 Nucleat RBC Rel Count 0.0 Neut # (Auto) 4.1 Lymph # (Auto) 1.9 Edwards # (Auto) 0.6 Eos # (Auto) 0.1 Baso # (Auto) 0.0 PHA Creatinine Clear Sodium Potassium Chloride Carbon Dioxide Anion Gap BUN Creatinine Est GFR (CKD-EPI) Glucose POC Glucose 206 183 Calcium Magnesium 12/31/22 06:36 Corrected WBC Uncorrected WBC Count RBC Hgb Hct MCV MCH MCHC RDW Plt Count MPV Neut % (Auto) Lymph % (Auto) Edwards % (Auto) Eos % (Auto) Baso % (Auto) Nucleat RBC Rel Count Neut # (Auto) Lymph # (Auto) Edwards # (Auto) Eos # (Auto) Baso # [...] clinic as scheduled. Follow-up with his primary marionette performer Dr. Hugo Moser henceforth Documented By: Henrry Issa MD [id number] Signed By: <Electronically signed by MD Henrry Issa> 12/31/22 1033 [facility] Work Phone: 1(121) 908-765310-31-2023 Progress note Author Katie Osborne [facility] December 30, 2022 2:12pm Note Date/Time December 30, 2022 2 :12pm [facility] [address] [place] [address] Hospitalist Progress Note Signed Patient: Emmanuel Jiménez MR#: [id number] : 1940 Acct:[id number] Age/Sex: 82 / M Adm Date: 3 Loc: Room: [address] [place] [address] Type: ADM IN Attending Dr: Katie Osborne MD Copies to: ~ Date of Service: 12/30/2022 Subjective Subjective Narrative: Patient was seen and evaluated at bedside this morning. software support engineer was reviewed, patient continued to have heart [...] Plan: ? Patient's baseline is unknown, at [place] his creatinine is 1.6, today here it is 1.4 ? Patient did receive atropine at [place], his heart rate has been improved while [...] signed by Katie Osborne MD> 12/30/22 1412 [facility] Work Phone: 1(272) 123-266210-30-2023 Progress note Author Henrry Issa [facility] December 29, 2022 2:16pm Note Date/Time December 29, 2022 2 :16pm [facility] [address] [place] [id number] Cardiology Progress Note Signed Patient: Emmanuel Jiménez MR#: [id number] : 1940 Acct:[id number] Age/Sex: 82 / M Adm Date: 3 Loc: 3T Room: [address] [place] [address] Type: ADM IN Attending Dr: Katie Osborne [...] block. Intermittently he is conducting in a [id number]. No observed manifestations of complete heart block. [...] % (Auto) 48.1 Lymph % (Auto) 41.3 Edwards % (Auto) 8.4 Eos % (Auto) 1.4 Baso % (Auto) 0.8 Nucleat RBC Rel Count 0.1 Neut # (Auto) 3.6 Lymph # (Auto) 3.1 Edwards # (Auto) 0.6 Eos # (Auto) 0.1 [...] MPV Neut % (Auto) Lymph % (Auto) Edwards % (Auto) Eos % (Auto) Baso % (Auto) Nucleat RBC Rel Count Neut # (Auto) Lymph # (Auto) Edwards # (Auto) Eos # (Auto) Baso # [...] <Electronically signed by MD Henrry Issa> 12/29/221415 [facility] Work Phone: 1(358) 679-595010-30-2023 Progress note Author Katie Osborne [facility] December 29, 2022 1:57pm Note Date/Time December 29, 2022 1 :57pm [facility] [address] [place] [address] Hospitalist Progress Note Signed Patient: Emmanuel Jiménez MR#: [id number] : 1940 Acct:[id number] Age/Sex: 82 / M Adm Date: 3 Loc: Room: [address] [place] [address] Type: ADM IN Attending Dr: Katie Osborne MD Copies to: ~ Date of Service: 12/29/2022 Subjective Subjective Narrative: Patient was seen and evaluated at bedside this morning. software support engineer was reviewed, patient continued to have heart [...] Dose Route Start Last Admin Trade Name Duncanq PRN Reason Stop Dose Admin Acarbose 100 [...] Plan: ? Patient's baseline is unknown, at [place] his creatinine is 1.6, today here it is 1.4 ? Patient did receive atropine at [place], his heart rate has been improved while [...] <Electronically signed by Katie Osborne MD> 12/29/[address] [place] [address] Ctr Work Phone: 1(560) 694-950010-29-2023 Consult note Author Haylee Benedict [facility] December 28, 2022 7:25pm Note Date/Time December 28, 2022 7 :22pm [facility] [address] [place], [place] [id number] Cardiology Consult Note Signed Patient: Emmanuel Jiménez MR#: [id number] : 1940 Acct:[id number] Age/Sex: 82 / M Adm Date: 3 Loc: 3T Room: [address] [place] [address] Type: ADM IN Attending Dr: Jarred Cline DO Copies to: Hugo Moser Jr, MD Jarred Sandra, ~ Cardiology HPI History of Present Illness [...] on telemetry. Documented By: Haylee Benedict MD 12/28/221215 Signed By: <Electronically signed by Haylee Benedict MD> 12/28/221924 [facility] Work Phone: 1(441) 589-811410-29-2023 History and physical note Author Jarred Cline [facility] December 28, 2022 1:36pm Note Date/Time December 28, 2022 1 :21pm [facility] [address] [place] [address] Hospitalist H&P Signed Patient: Emmanuel Jiménez MR#: [id number] : 1940 Acct:[id number] Age/Sex: 82 / M Adm Date: 3 Loc: Room: [address] [place] [address] Type: ADM IN Attending Dr: Jarred Cline DO Copies to: DO Jarred Chidlers Jr, ~ HPI DATE OF EXAMINATION: 12/28/22 CHIEF COMPLAINT: low heart rate HISTORY OF PRESENT ILLNESS: Mr Jiménez is an 82-year-old male with past medical history of diabetes and hypertension who presents hospital today with chief complaint of low heart rate. He was transferred here from [facility], he has been feeling exertional dyspnea [...] to the emergency room. He went to [place] [facility] was then transferred back here due to there being no cardiology services at [place]. Patient denies any cough with his shortness [...] negative unless noted below or in HPI [facility] Social History Smoking Status: Never smoker Meds [...] Plan: ? Patient's baseline is unknown, at [place] his creatinine is 1.6, today here it is 1.4 ? Likely secondary to decreased perfusion from bradycardia ? Patient did receive atropine at [place], his heart rate has been improved while [...] signed by Jarred Cline DO> 12/28/22 1336 [facility] Work Phone: Discharge summary Author Katie Osborne [facility] December 31, 2022 12:42pm Note Date/Time December 31, 2022 1 2:43pm [facility] [address] [place] [address] Discharge Summary Signed Patient: Emmanuel Jiménez MR#: [id number] : 1940 Acct:[id number] Age/Sex: 82 / M Adm Date: 3 Loc: Room: [address] [place] [address]: Katie Osborne MD Copies to: [...] rate. He was transferred here from [facility], he has been feeling exertional dyspnea [...] % (Auto) 61.2, Lymph % (Auto) 27.7, Edwards % (Auto) 8.9, Eos % (Auto) 1.6, Baso % (Auto) 0.6, Nucleat RBC Rel Count 0.0, Neut # (Auto) 4.1, Lymph # (Auto) 1.9, Edwards # (Auto) 0.6, Eos # (Auto) 0.1, [...] with nurse for incision check in the [facility] Office on - we will call you. 2. Chest x-ray to be done the same day as your device check at [facility] [address] [facility] 04/15/2023. 3. Pacemaker/ICD clinic appointment at [facility] [address] on 04/15/2023 at 11:00am . 4. Office [...] signed by Katie Osborne MD> 12/31/22 1242 [facility] Work Phone: Evaluation note* Diagnosis Onset Date Resolution Status ZAC (acute kidney injury) ac luke Diabetes mellitus acute HTN (hypertension) acute Mobitz type 2 second degree AV block acute [facility] Work Phone: Evaluation note* Diagnosis AV block, Mobitz II Mobitz (type) II atrioventricular block Pacemaker Cardiac pacemaker in situ Obesity (BMI 30.0-34.9) documented in this encounter [facility] Work Phone: Evaluation note* Diagnosis Acute pain of right shoulder Rotator cuff arthropathy, right Arthritis of right acromioclavicular joint documented in this encounter [facility] HealthcareEvaluation noteNo assessment information availableMercy [facility] Hospital Work Phone: Evaluation note* Diagnosis Non-ischemic cardiomyopathy (Multi)- Primary Other primary cardiomyopathies AV block, Mobitz II Mobitz (type) II atrioventricular block Pacemaker Cardiac pacemaker in situ Mixed hyperlipidemia BMI 30.0-30.9,adult documented in this encounter [facility] Work Phone: Evaluation note* Diagnosis Type 2 diabetes mell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, without long-term current use of insulin ([facility]) [facility] Primary Type 2 diabetes mellitus with hyperglycemia, without long-term current use of insulin (CMS/HCC) documented in this encounter [facility] HealthcareEvaluation note* Diagnosis Type 2 diabetes mellitus without complication, 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 (CMS/HCC)- Primary Pain due to onychomycosis of toenails of both feet documented in this encounter [facility] HealthcareEvaluation note* Diagnosis Type 2 diabetes [...] of insulin (CMS/HCC) documented in this encounter [facility] HealthcareEvaluation note* Diagnosis Type 2 diabetes [...] arthropathy, shoulder region documented in this encounter [facility] HealthcareEvaluation note* Diagnosis Pacemaker- Primary Cardiac pacemaker in situ AV block, Mobitz II Mobitz (type) II atrioventricular block Mixed hyperlipidemia Paroxysmal atrial fibrillation (Multi) Atrial fibrillation Mild tricuspid regurgitation Diabetes mellitus type II, non insulin dependent (Multi) Type II or unspecified type diabetes mellitus without mention of complication, not stated as uncontrolled BMI 28.0-28.9,adult Never smoked tobacco Overweight documented in this encounter [facility] Work Phone: Evaluation note* Diagnosis Type 2 diabetes mell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, without long-term current use of insulin (HCC) (CMS/HCC) [facility] Additional Instructions DISCHARGE INSTRUCTIONS FOR [...] with nurse for incision check in the [facility] Office on - 01/08/2023 at 1:30pm. 2. Chest x-ray to be done the same day as your device check at [facility] [address] 04/15/2023. 3. Pacemaker/ICD clinic appointment at [facility] [address] on 04/15/2023 at 11:00am . 4. Office visit with Dr. Moser. [][facility] Work Phone: Reason for referral (narrative)* Consultation (Routine) - Authorized Specialty Diagnoses / Procedures Referred By Milan stallings Referred To Contact Cardiology Diagnoses AV block, Mobitz II Pacemaker Procedures Follow Up In Cardiology Henrry Issa MD [address] [place] [address], [address] [address] Henrry Issa MD [address] [place] [address], [address] [address] Referral ID Status Reason Start Date Expiration Date V isits Requested Visits Authorized [id number] Authorized 01/14/2023 01/14/2024 1 1 [facility] Work Phone: Reason for referral (narrative)* Consultation (Routine) - Authorized Specialty Diagnoses / Procedures Referred By Milan stallings Referred To Contact Cardiology Diagnoses AV block, Mobitz II Procedures Follow Up In Cardiology Henrry Issa MD [address] [place] [address], [place] [id number] Stephanie Steward MD [address] [place] [place] [address], [place] [id number] Referral ID Status Reason Start Date Expiration Date V isits Requested Visits Authorized [id number] Authorized 07/24/2023 07/23/2024 1 1 [facility] Work Phone: Summary Purpose Family History [...] Inj/Asp: R acromioclavicular Negro Brown PA [address] [address] Referral ID Status Reason Start Date Expiration Date V isits Requested Visits Authorized [id number] Pending Review 04/08/2023 10/05/2023 1 1 Specialty Diagnoses / Procedures Referred By Contac t Referred To Contact Orthopaedic Surgery Diagnoses Rotator cuff arthropathy, right Procedures L Inj/Asp: R subacromial bursa Negro Brown PA [address] [address] Referral ID Status Reason Start Date Expiration Date V isits Requested Visits Authorized [id number] Authorized 04/08/2023 10/05/2023 1 1 Additional Source Comments (unrecognized sect ion and content) No Status Records FoundNo Status Records FoundNo Status Records FoundNo Status Records Found INFORMATION SOURCE (unrecogn ized section and content) DATE CREATED AUTHOR 05/25/2022 [facility] pital DATE CREATED AUTHOR AUTHOR'S ORGANIZ ATION 03/15/[address] [facility] DATE CREATED AUTHOR AUTHOR'S ORGANIZ ATION 04/19/2024 [facility] EPIC DATE CREATED AUTHOR AUTHOR'S ORGANIZ ATION 04/22/2024 [facility] Care Teams (unrecognized [...] Prakash RN Other Provider Active Aretha Chaparro , DO Other Provider Active Stephanie Steward MD Other Provider Active Henrry Issa MD Other Provider Active Farzana Escalera MD Other Provider Active Hugo Johnson MD Other Provider Active Sangita Salas APRN Other Provider Active Natacha Padron MD Other Provider Active Kang Douglas MD Other Provider Active Jordan Bolanos MD Other Provider Active Nikia Woodward [facility] Other Provider Active Lauren Steiner MD Other Provider Active Team Status: Inactive Member Role Status Dates Hugo Moser JR DO Primary Care Provider Active Henrry Issa MD Attending Provider Active Mobile Sales Assistant Relationship Specialty Start Date End Date Hugo Moser DO [facility] [place] [address] PCP - General Internal Medicine 12/31/22 Mobile Sales Assistant Relationship Specialty Start Date End Date Hugo Moser MD [address] [place] [id number] PCP - General Internal Medicine 04/08/23 Team Status: Inactive Member Role Status Dates Hugo Moser JR DO Primary Care Provider Active Start: April 15, 2023 End: April 15, 2023 Henrry Issa MD Referring Provider Active Start: April 15, 2023 End: April 15, 2023 Sangita Salas APRN Attending Provider Active Start: April 15, 2023 End: April 15, 2023 Mobile Sales Assistant Relationship Specialty Start Date End Date Hugo Moser DO PCP - General Internal Medicine 12/31/22 Team Status: Inactive Member Role Status Dates Hugo Moser JR DO Primary Care Provider Active Start: October 16, 2023 End: October 16, 2023 Henrry Issa MD Attending Provider Active Start: October 16, 2023 End: October 16, 2023 Mobile Sales Assistant Relationship Specialty Start Date End Date Hugo Moser MD [address] [place] [address] PCP - General Internal Medicine 04/08/23 Mobile Sales Assistant Relationship Specialty Start Date End Date Hugo Moser MD [address] [place] [address] PCP - General Internal Medicine 04/08/23 Mobile Sales Assistant Relationship Specialty Start Date End Date Hugo Moser MD [address] [place] [address] PCP - General Internal Medicine 04/08/23 Mobile Sales Assistant Relationship Specialty Start Date End Date Hugo Moser MD [address] [place] [address] PCP - General Internal Medicine 04/08/23 Mobile Sales Assistant Relationship Specialty Start Date End Date Hugo Moser MD [address] [place] [address] PCP - General Internal Medicine 04/08/23 Mobile Sales Assistant Relationship Specialty Start Date End Date Hugo Moser MD [address] [place] [address] PCP - General Internal Medicine 04/08/23 Mobile Sales Assistant Relationship Specialty Start Date End Date Hugo Moser MD [facility] [place] [address] PCP - General Internal Medicine 04/08/23 Mobile Sales Assistant Relationship Specialty Start Date End Date Hugo Moser MD [address] [facility] [place] [address] PCP - General Internal Medicine 04/08/23 Mobile Sales Assistant Relationship Specialty Start Date End Date Hugo Moser MD [address] [place] [address] PCP - General Internal Medicine 04/08/23 Mobile Sales Assistant Relationship Specialty Start Date End Date Hugo [...] April 15, 2024 End: April 15, 2024 Mobile Sales Assistant Relationship Specialty Start Date End Date Hugo Moser MD [facility] [place], [place] [id number] PCP - General Internal Medicine 04/08/23 Reason for Visit (unrecogniz ed section and content) Reason Comments Follow-up Swelling and pain at pacemaker site.Placed 2 weeks ago. Specialty Diagnoses / Procedures Referred By Contac t Referred To Contact Cardiology Diagnoses AV block, Mobitz II Pacemaker Procedures Follow Up In Cardiology Henrry Issa MD [address] [place] [address] 2, [address] [address] Referral ID Status Reason Start Date Expiration Date V isits Requested Visits Authorized [id number] Authorized 01/14/2023 01/14/2024 1 1 Reason Comments Pain Reason Comments Follow-up 6 month Specialty Diagnoses / Procedures Referred By Contac t Referred To Contact Cardiology Diagnoses AV block, Mobitz II Pacemaker Procedures Follow Up In Cardiology Henrry Issa MD [address] [place] [address] 2, [address] [address] Henrry Issa MD [address] [place] [address], [address] [address] Referral ID Status Reason Start Date Expiration Date V isits Requested Visits Authorized [id number] Authorized 01/14/2023 01/14/2024 1 1 Reason Comments Diabetes Reason Comments DM Foot Care Dm nail care Reason Comments Follow-up Reason Comments Follow-up 6m Specialty Diagnoses / Procedures Referred By Contac t Referred To Contact Cardiology Diagnoses AV block, Mobitz II Procedures Follow Up In Cardiology Henrry Issa MD StewardStephanie munoz MD [address] [place] [address], [address] [address] Phone: tel: fax: Referral ID Status Reason Start Date Expiration Date V isits Requested Visits Authorized [id number] Authorized 07/24/2023 07/23/2024 1 1 Reason Onset [...] BE BASED ON THE PRIMARY CLINICAL RECORDS. [facility]. provides no warranty or guarantee of the accuracy or completeness of information in this document.
== END 2024-05-09 09:29 | disposition home or self-care (01) ==
PROVIDERS: Emergency Provider Emergency Medicine; PCP Internal Medicine
DX: S40.012A Contusion of left shoulder, initial encounter (principal); S00.03XA Contusion of scalp, initial encounter; S00.01XA Abrasion of scalp, initial encounter; W10.8XXA Fall (on) (from) other stairs and steps, initial encounter; R42 Dizziness and giddiness; S40.212A Abrasion of left shoulder, initial encounter; M54.6 Pain in thoracic spine
CPT/HCPCS: 70450; 71101; 72070; 99284

== ENCOUNTER 2024-05-17 14:13 | Outpatient (OUT) | payer MEDICARE, SELFPAY ==
--- NOTE | 2024-05-17 14:26 | XR_ITS ---
The [place] [id number] Patient Name: JOSE MIGUEL ANDERSON MRN: [id number] date: 1940 Sex: M Assigned Patient Location: [facility] Current Patient Location: [facility] Accession/Order Number: [id number] Exam Date: 05/17/2024 15:04 Report Date: 05/17/2024 15:06 At the request of: KEN MOSER DO Procedure: XR chest 2V Chest 2 views CLINICAL HISTORY: Left Rib Contusion, Rib SubluxLeft posterior chest pain over left shoulder pain after fall 4 days ago COMPARISON: Chest 03/19/2024 FINDINGS: Heart normal in size. Low lung volumes with bibasilar atelectasis. Pacemaker device in place. No consolidation pneumothorax pleural effusion or free air. No displaced rib fracture. XR/XR chest 2V IMPRESSION: LOW LUNG VOLUMES WITH BIBASILAR ATELECTASIS. Impression dictated by: Salvador Nick Jr., D.O.05/17/2024 3:06 PM [facility]ation [facility] Electron[facility] authenticated by: [id number] Y Date: 05/17/2024 15:06
== END 2024-05-17 14:14 | disposition home or self-care (01) ==
LOC: RAD 14:21
PROVIDERS: PCP Internal Medicine; Visit Provider Internal Medicine
DX: S20.212A Contusion of left front wall of thorax, initial encounter (principal)
CPT/HCPCS: 71046

== ENCOUNTER 2024-11-10 06:27 | Outpatient (OUT) | payer MEDICARE, SELFPAY ==
--- OUTSIDE RECORDS SUMMARY | 2024-11-10 06:32 | XMS_ITS | CCD ---
Author Organization [facility] Care Team Providers Care Clinical Manager Name Role Phone VINODONE, DR ARIAS Admitting [...] Ciro, JR Hugo Ferris Primary Care Provider [phone] DO Jarred Cline Admit Provider MD Katie [...] Provider MD Jordan Bolanos Other Provider Crissy [facility] Nikia Ferris Other Provider [phone] MD Lauren Steiner Other Provider [phone] JR Hugo Moser Primary Care Provider DO Jarred Cline Admit Provider [phone] MD Katie Osborne Attending Provider SULEIMAN Prakash Other Provider Unavailable DO Aretha Chaparro Other Provider MD Stephanie Steward Other Provider MD Henrry Issa Other Provider MD Farzana Escalera Other Provider MD Hugo Johnson Other Provider BHAVIN Gregorio Other Provider MD Natacha Padron Other Provider MD Kang Douglas Other Provider MD Jordan Bolanos Other Provider Crissy [facility] Nikia Ferris Other Provider MD Lauren Steiner Other Provider MD Henrry Issa Attending Provider Hugo Moser DO Primary Care Provider Hugo Moser MD Primary Care Provider JR Hugo Moser Primary Care Provider MD Henrry Issa Referring Provider BHAVIN Gregorio Attending Provider Hugo Moser DO Primary Care Provider JR Hugo Moser Primary Care Provider MD Henrry Issa Attending Provider Hugo Moser JR Primary Care Provider Henrry Issa MD Attending Provider VEDA ROME Attending Unavailable VEDA ROME Attending Unavailable VEDA ROME Attending Unavailable VEDA ROME Attending Unavailable HUGO MOSER Referring Unavailable KENNEDY CAMARA Attending Unavailable VEDA ROME Attending Unavailable JR. CÁRDENAS GEORGE C Attending Unavaila ble Hugo Moser JR Primary Care Provider Stephanie Steward MD Other Provider [phone] Cristian Teran MD Attending Provider Stephanie Steward Admitting Unavailable Stephanie Steward Attending Unavailable Hugo Moser Primary Care Unavailable Henrry Issa Admitting Unavail able Henrry Issa Attending Unavail able Hugo Moser Primary Care Unavailable Stephanie Steward Attending Unavailable Hugo Moser Primary Care Unavailable Stephanie Steward Admitting Unavailable Stephanie Steward Attending Unavailable Hugo Moser Primary Care Unavailable Stephanie Steward Admitting Unavailable STEPHANIE STEWARD Attending Unavailable HENRRY ISSA Referring Unavailable HUGO MOSER Primary Care Unavailable Hugo Moser DO Primary Care Provider Medications Current Medications Medication Drug Class(es) Dates Sig (Normalized) Sig (Original) acarbose 100 mg oral tablet (20 sources) alpha-Glucosidase Inhibitor Start: 12-28-2022 End: 04-18-2024 take 1 tablet by mouth in the morning acarbose (Precose) 100 MG tablet Take 100 mg by mouth in the morning and 100 mg before bedtime. 06/16/2024 Active Start: 09-12-2022 take 1 tablet by dannie th three times daily acarbose (Precose) 100 mg tablet Take 1 tablet (100 mg) by mouth 3 times daily (morning, midday, late afternoon). 09/12/2022 Active End: 12-03-2023 acarbose (Precose) 100 MG ta blet 2 (two) times a day 12/03/2023 Discontinued apixaban 5 mg oral tablet (1 source) Factor Xa Inhibitor Start: 10-24-2024 End: 10-24-2025 take 1 tablet by mouth twice daily apixaban (Eliquis) 5 mg tablet Indications: Atrial fibrillation, unspecified type (Multi) Take 1 tablet (5 mg) by mouth 2 times a day. 180 tablet 1 10/24/2024 10/24/2025 Active clindamycin 300 mg oral capsule (7 sources) Lincosamide Antibacterial Start: 12-31-2022 take 2 capsules by mouth three times daily Start: 12-31-2022 take 600 mg by mouth three times daily Clindamycin Hcl Active 600 MG PO Three times daily 12 December 31, 2022 12:00am Docusate (14 sources) Docusate Calcium (STOOL SOFTENER PO) Take [...] 1 tablet by mouth once da jamil take 5 mg by mouth in the mornin g ezetimibe (Zetia) 10 MG tablet Take 5 mg by mouth in the morning. Active famotidine 40 mg oral tablet (2 sources) Histamine-2 Receptor Antagonist Start: 06-01-2024 take 1 tablet by mouth at bedtime famotidine (Pepcid) 40 MG tablet Take 40 mg by mouth at bedtime 06/01/2024 Active finerenone (KERENDIA ORAL) (3 sources) take 1 tablet by mouth once daily finerenone (KERENDIA ORAL) Take 1 tablet by mouth once daily. Active Finerenone (KERENDIA PO) (20 sources) Finerenone (KERENDIA PO) Take 20 mg by mouth Active Finerenone (KERE NDIA PO) Take by mouth Active Finerenone (KERE NDIA PO) Take by mouth 0 Active 3 ml insulin degludec 100 unt/ml pen injector (9 sources) Insulin Analog Start: 05-12-2024 End: 07-19-2024 insulin degludec (Tresiba FlexTouch) 100 UNIT/ML injection Indications: Type 2 diabetes mellitus with hyperglycemia, without long-term current use of insulin ([facility]) Inject 12 Units under the skin Daily 15 mL 3 05/12/2024 07/19/2024 Discontinued Start: 01-18-2024 insulin deglud ec (Tresiba FlexTouch) 100 UNIT/ML injection Indications: Type 2 diabetes mellitus with hyperglycemia, without long-term current use of insulin ([facility]) Inject 12 Units under the skin Daily 15 mL 3 01/18/2024 Active 3 ml insulin lispro 25 unt/ml / insulin lispro protamine, human 75 unt/ml pen injector (8 sources) Insulin Analog Start: 11-01-2024 End: 11-01-2025 insulin lispro protamin-lispro (HumaLOG Mix 75-25) 100 unit/mL (75-25) pen 30 units breakfast and 15 units dinner 11/01/2024 11/01/2025 Active Start: 07-19-2024 End: 10-14-2025 insulin lispro protamine-ins ulin lispro (HumaLOG MIX 75/25 KWIKPEN) (75-25) 100 UNIT/ML injection Indications: Type 2 diabetes mell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, with long-term current use of insulin ([facility]) 30 units breakfast and 15 units dinner 15 mL 11 10/14/2024 10/14/2025 Active metFORMIN hydrochloride 500 mg oral tablet (20 sources) Biguanide Start: 06-25-2023 metFORMIN (Glu cophage) [...] SITagliptin 100 mg extended release oral tablet (12 sources) Biguanide, Dipeptidyl Peptidase 4 Inhibitor Start: 12-23-2022 End: 07-24-2023 take 1 tablet by mouth once daily End: 12-01-2023 take 1 tablet by mouth every twenty-four hours in the morning Janumet XR 100-1000 MG per 24 hr tablet Take 1 tablet by mouth in the morning. 12/01/2023 Discontinued Ozempic 1 mg/dose (4 mg/3 mL) pen injector (3 sources) Start: 05-18-2023 End: 11-09-2024 inject 1 mg by subcutaneous injection every week Ozempic 1 mg/dose (4 mg/3 mL) pen injector Inject 1 mg under the skin 1 (one) time per week. 05/18/2023 11/09/2024 Discontinued (Therapy completed) Start: 05-18-2023 inject 1 mg by subcu taneous injection every week Ozempic 1 mg/dose (4 mg/3 mL) pen injector Inject 1 mg under the skin 1 (one) time per week. 05/18/2023 Active pen needle 33G x 4 mm misc (14 sources) Start: 01-18-2024 pen needle 33G x 4 mm misc Indications: Type 2 diabetes mell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, without long-term current use of insulin (HCC) Injections subcutaneous daily 100 each 3 01/18/2024 Active Start: 01-18-2024 pen needle 33G x 4 mm misc Indications: Type 2 diabetes mell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, without long-term current use of insulin (HCC) ([facility]/HCC) Injections subcutaneous daily 100 each 3 01/18/2024 Active rivaroxaban 20 mg oral tablet (12 sources) Factor Xa Inhibitor Start: 12-08-2022 End: 03-09-2024 rosuvastatin calcium 40 mg oral tablet (20 sources) HMG-CoA Reductase Inhibitor Start: 11-11-2022 take 1 tablet by mouth once daily rosuvastatin (Crestor) 40 mg tablet Take 1 tablet (40 mg) by mouth once daily. 11/11/2022 Active sacubitril 24 mg / valsartan 26 mg oral tablet (15 sources) Angiotensin 2 Receptor Maria Victoria Start: 12-28-2022 End: 12-03-2023 take 1 tablet by mouth once daily End: 12-01-2023 Sacubitril-Valsartan (ENTRES TO PO) Take [...] without long-term current use of insulin (HCC) ([facility]/HCC) Inject 15 Units under the skin Daily [...] 0.5 MG/0.5ML solution auto-injector (2 sources) End: Semaglutide-Weight Management 0.5 MG/0.5ML solution auto-injector Inject 0.6 mg under the skin 12/03/2023 Discontinued Problems Active Problems Problem Classification Problem Date Documented Date Episodic/Chronic Acute and unspecified renal failure (9 sources) Acute renal failure syndrome; Translations: [Acute kidney failure, unspecified] 12-28-2022 Episodic Comment on above: Problem List clean-u p per request of Phys. EHR Cmte Cardiac dysrhythmias (2 sources) Paroxysmal atrial fibrillation; Translations: [Paroxysmal atrial fibrillation] 03-09-2024 Chronic Cardiac dysrhythmias (14 sources) Bradycardia; Translations: [Bradycardia, unspecified] 12-31-2022 Episodic [...] 5 12-03-2023 Chronic Diabetes mellitus without complication (20 sources) Diabetes mellitus; Translations: [Type 2 diabetes [...] request of PhysAmparo Fernandez Heart valve disorders (2 sources) Rheumatic tricuspid insufficiency; Translations: [Diseases of tricuspid valve] 03-09-2024 Chronic Hypertension with complications and secondary hypertension (1 source) Hypertensive chronic kidney disease with stage 1 through stage 4 chronic kidney disease, or unspecified chronic kidney disease; Translations: [HTN CKD W/STAGE 1-4 CKD/UNS CKD] Onset: 2 Chronic Mycoses (2 sources) Pain in toe; Translations: [Tinea unguium] 12-06-2023 Episodic Osteoarthritis (20 sources) Arthritis of right acromioclavicular joint; Translations: [Primary osteoarthritis, right shoulder] Onset: 4 04-08-2023 Chronic Other aftercare (1 source) Other shelter (current) drug therapy; Translations: [[employer]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 THERAPY] Onset: 3 Episodic Other aftercare (1 source) Taking high risk medication; Translations: [Other shelter (current) drug therapy] 11-09-2024 Episodic Other circulatory disease (1 source) History of cardiomyopathy; Translations: [Personal history of other diseases of the circulatory system] 11-09-2024 Episodic Other non-traumatic joint disorders (3 sources) Rotator cuff arthropathy of right shoulder; Translations: [Other specific arthropathies, not elsewhere classified, right shoulder] 04-08-2023 Chronic Other non-traumatic joint disorders (1 source) Pain in right shoulder; Translations: [Pain in joint, shoulder region] 04-07-2023 Episodic Other nutritional; endocrine; and metabolic disorders (6 sources) Obese class I; Translations: [Obesity, unspecified] Onset: 3 01-14-2023 Chronic Other nutritional; endocrine; and metabolic disorders (4 sources) Body mass index 30+ - obesity; Translations: [Body mass index (BMI) 30.0-30.9, adult] Onset: 4 07-24-2023 Chronic Other nutritional; endocrine; and metabolic disorders (1 source) Overweight; Translations: [Overweight] 03-09-2024 Episodic Shauna-; endo-; and myocarditis; cardiomyopathy (except that caused by tuberculosis or sexually transmitted disease) (20 sources) Cardiomyopathy; Translations: [Other cardiomyopathies] Onset: 3 01-14-2023 Chronic Residual codes; unclassified (4 sources) Never smoked tobacco; Translations: [Other specified health status] Onset: 5 03-09-2024 Episodic Unclassified (1 source) CHRN KIDNEY DISEASE STG 3 UNSP; Translations: [CHRN KIDNEY DISEASE STG 3 UNSP] Onset: 2 Past or Other Problems Problem Classification Problem Date Documented Da te Episodic/Chronic Other nutritional; endocrine; and metabolic disorders (3 sources) Overweight in adulthood with body mass index of 25 or more but less than 30; Translations: [Body mass index (BMI) 28.0-28.9, adult] Onset: 03-09-2024 03-09-2024 Episodic Other nutritional; endocrine; and metabolic disorders (2 sources) Body mass index (BMI) 28.0-28.9, adult; Translations: [Body mass index (BMI) 28.0-28.9, adult] Onset: 03-09-2024 Episodic Phlebitis; thrombophlebitis and thromboembolism (20 sources) Deep venous thrombosis; Translations: [Acute embolism and thrombosis of unspecified deep veins of unspecified lower extremity] Onset: 01-14-2023 01-14-2023 Episodic Residual codes; unclassified (2 sources) Other specified health status; Translations: [Other specified health status] Onset: 03-09-2024 Episodic Unclassified (4 sources) Onset: 01-14-2023 Resolved: 11-09-2024 01-14-2023 Results Test Name Value Interpretation Reference Range Facility HbA1c (Bld) [Mass fraction]o n 10-14-2024 Interpretation and review of laboratory results Abnormal [facility] - Hematology and Cell countson 10-14-2024 HbA1c (Bld) [Mass fraction] 8.7 % [facility] HbA1c (Bld) [Mass fraction]o n 07-19-2024 Interpretation and review of laboratory results Abnormal [facility] - Hematology and Cell countson 07-19-2024 HbA1c (Bld) [Mass fraction] 9 % [facility] HbA1c (Bld) [Mass fraction]o n 04-18-2024 Interpretation and review of laboratory results Abnormal [facility] - Hematology and Cell countson 04-18-2024 HbA1c (Bld) [Mass fraction] 8.1 % [facility] ECG 12 Leadon 03-09-2024 ECG reveals atrial s ensing and ventricular pacing rhythm, abnormal ECG [facility] Work Phone: HbA1c (Bld) [Mass fraction]o n 01-18-2024 Interpretation and review of laboratory results Abnormal [facility] - Hematology and Cell countson 01-18-2024 HbA1c (Bld) [Mass fraction] 10.4 % [facility] L Inj/Asp: R subacromial bur saon [...] with 2ml of 2 % lidocaine (Code 95405 RT) Procedure, treatment alternatives, risks and benefits explained, specific risks discussed. Consent was given by the patient. [facility] M Inj/Asp: R acromioclavicul garrett 04-08-2023 [...] and draped in the usual sterile fashion. [facility] Basophils Auto (Bld) [#/Vol] Ordered By: Jarred Cline on 12-31-2022 Basophils (Bld) [#/Vol] 0.0 10*3/uL 0.0-0.[address] [facility] Basophils/100 WBC Auto (Bld) Ordered By: Jarred Cline on 12-31-2022 Basophils/100 WBC (Bld) 0.6 % . [facility] Calcium [Mass/volume] in Ser um or PlasmaOrdered By: Jarred Cline on 12-31-2022 Calcium [Mass/Vol] 8.9 mg/dL 8.6-10.3 [facility] Carbon dioxide, total [Moles /volume] in Serum or PlasmaOrdered By: Jarred Cline on 12-31-2022 CO2 [Moles/Vol] 22.9 mmol/L 21.0-31.0 [facility] Chloride [Moles/volume] in S chiquis or PlasmaOrdered By: Jarred Cline on 12-31-2022 Chloride [Moles/Vol] 106 mmol/L 98-107 [facility] Creatinine [Mass/volume] in Serum or PlasmaOrdered By: Jarred Cline on 12-31-2022 Creatinine [Mass/Vol] 1.20 mg/dL 0.70-1.30 [facility] Eosinophils Auto (Bld) [#/Vo l]Ordered By: Jarred Cline on 12-31-2022 Eosinophils (Bld) [#/Vol] 0.1 10*3/uL 0.0-0.[address] [facility] Eosinophils/100 WBC Auto (Bl d)Ordered By: Jarred Cline on 12-31-2022 Eosinophils/100 WBC (Bld) 1.6 % . [facility] Erythrocyte distribution wid th Auto (RBC) [Ratio]Ordered By: Jarred Cline on 12-31-2022 Erythrocyte distribution width (RBC) [Ratio] 14.9 % 12.0-14.[address] [facility] Glucose [Mass/volume] in Ser um or PlasmaOrdered By: Jarred Cline on 12-31-2022 Glucose [Mass/Vol] 175 mg/dL 70-100 [facility] Comment on above: ADA recommended refe rence rangeRandom Glucose Reference Range is dependent on time and content of last meal. Glucose of more than 200 mg/dL in a nonstressed, ambulatory subject supports the diagnosis of Diabetes Mellitus. Hematocrit Auto (Bld) [Volum e fraction]Ordered By: Jarred Cline on 12-31-2022 Hematocrit (Bld) [Volume fraction] 39.1 % 38.8-50.[address] [facility] Hemoglobin [Mass/volume] in BloodOrdered By: Jarred Cline on 12-31-2022 Hemoglobin (Bld) [Mass/Vol] 13.0 g/dL 13.0-17.[address] [facility] Leukocytes [#/volume] correc adela for nucleated erythrocytes in Blood by Automated counOrdered By: Jarred Cline on 12-31-2022 WBC corrected for nucl RBC Auto (Bld) [#/Vol] 6.7 10*3/uL 4.1-10.[address] [facility] Lymphocytes Auto (Bld) [#/Vo l]Ordered By: Jarred Cline on 12-31-2022 Lymphocytes (Bld) [#/Vol] 1.9 10*3/uL 1.00-4.[address] [facility] Lymphocytes/100 WBC Auto (Bl d)Ordered By: Jarred Cline on 12-31-2022 Lymphocytes/100 WBC (Bld) 27.7 % . [facility] MCH Auto (RBC) [Entitic mass ]Ordered By: Jarred Cline on 12-31-2022 MCH (RBC) [Entitic mass] 30.5 pg 27.5-35.[address] [facility] MCHC Auto (RBC) [Mass/Vol]Or dered By: Jarred Cline on 12-31-2022 MCHC (RBC) [Mass/Vol] 33.3 g/dL 32.5-35.6 [facility] MCV Auto (RBC) [Entitic vol] Ordered By: Jarred Cline on 12-31-2022 MCV (RBC) [Entitic vol] 91.5 fL 83.5-[address] [facility] Magnesium [Mass/volume] in S chiquis or PlasmaOrdered By: Jarred Cline on 12-31-2022 Magnesium [Mass/Vol] 2.1 mg/dL 1.9-2.7 [facility] Monocytes Auto (Bld) [#/Vol] Ordered By: Jarred Cline on 12-31-2022 Monocytes (Bld) [#/Vol] 0.6 10*3/uL 0.0-0.[address] [facility] Monocytes/100 WBC Auto (Bld) Ordered By: Jarred Cline on 12-31-2022 Monocytes/100 WBC (Bld) 8.9 % . [facility] Neutrophils Auto (Bld) [#/Vo l]Ordered By: Jarred Cline on 12-31-2022 Neutrophils (Bld) [#/Vol] 4.1 10*3/uL 1.8-7.[address] [facility] Neutrophils/100 WBC Auto (Bl d)Ordered By: Jarred Cline on 12-31-2022 Neutrophils/100 WBC (Bld) 61.2 % . [facility] No Panel InformationOrdered By: Jarred Cline on 12-31-2022 Estimated GFR (CKD-EPI) > 60.0 mL/Min [facility] Creatinine Clearance (Chem 48.[address] [facility] Nucleated erythrocytes [Pres ence] in Blood by Automated countOrdered By: Jarred Cline on 12-31-2022 Nucleated RBC Auto Ql (Bld) 0.0 /100{WBC} 0-0.[address] [facility] Platelet mean volume Auto (B ld) [Entitic vol]Ordered By: Jarred Cline on 12-31-2022 Platelet mean volume (Bld) [Entitic vol] 7.2 fL 6.6-10.[address] [facility] Platelets Auto (Bld) [#/Vol] Ordered By: Jarred Cline on 12-31-2022 Platelets (Bld) [#/Vol] 148 10*3/uL 150-[address] [facility] Potassium [Moles/volume] in Serum or PlasmaOrdered By: Jarred Cline on 12-31-2022 Potassium [Moles/Vol] 4.1 mmol/L 3.5-5.1 [facility] RBC Auto (Bld) [#/Vol]Ordere d By: Jarred Cline on 12-31-2022 RBC (Bld) [#/Vol] 4.27 10*6/uL 3.90-5.60 [facility] Serum or plasma anion gap de terminationOrdered By: Jarred Cline on 12-31-2022 Anion gap [Moles/Vol] 12.2 mmol/L 6.0-15.0 [facility] Sodium [Moles/volume] in Ser um or PlasmaOrdered By: Jarred Cline on 12-31-2022 Sodium [Moles/Vol] 137 mmol/L 136-145 [facility] Urea nitrogen [Mass/volume] in Serum or PlasmaOrdered By: Jarred Cline on 12-31-2022 Urea nitrogen [Mass/Vol] 23 mg/dL 7-[address] [facility] WBC Auto (Bld) [#/Vol]Ordere d By: Jarred Cline on 12-31-2022 WBC (Bld) [#/Vol] 6.7 10*3/uL 4.1-10.5 [facility] Activated partial thrombopla stin time (aPTT) in platelet poor plasma by coagulation aOrdered By: Henrry Issa on 12-30-2022 aPTT Coag (PPP) [Time] 30.2 s 25.1-36.5 [facility] Comment on above: A hematocrit value g reater than 55% may lead to inaccurate results in coagulation testing. Patients having hematocrit values >55% require a special collection tube for coagulation studies. Please contact the laboratory at [phone] for redraw instructions. Glucose Glucometer (dC) [M ass/Vol]Ordered By: Katie Osborne on 12-30-2022 Glucose [Mass/Vol] 183 mg/dL [facility] Comment on above: Random Glucose Refer ence Range is dependent on time and content of last meal. Glucose of more than 200 mg/dL in a nonstressed, ambulatory subject supports the diagnosis of Diabetes Mellitus. INR in Platelet poor plasma by Coagulation assayOrdered By: Henrry Issa on 12-30-2022 INR Coag (PPP) [Relative time] 1.1 {INR} [facility] Comment on above: INR Therapeutic Rang [...] PT Coag (PPP) [Time] 13.1 s 9.0-12.9 [facility] Comment on above: A hematocrit value g reater than 55% may lead to inaccurate results in coagulation testing. Patients having hematocrit values >55% require a special collection tube for coagulation studies. Please contact the laboratory at [phone] for redraw instructions. Cholesterol [Mass/volume] in Serum or PlasmaOrdered By: Jarred Cline on 12-29-2022 Cholesterol [Mass/Vol] 96 mg/dL 140-200 [facility] Comment on above: Chol less than 200 m g/dl low riskChol 201-239 mg/dl borderline riskChol 240 mg/dl and greater high risk Cholesterol in LDL Calc [Mas s/Vol]Ordered By: Jarred Cline on 12-29-2022 Cholesterol in LDL [Mass/Vol] 40 mg/dL 0-[address] [facility] Comment on above: LDL ATP III CLASSIFI CATIONLDL less than 100 mg/dL OptimalLDL 100-129 mg/dL Near or above optimalLDL 130-159 mg/dL Borderline highLDL 160-189 mg/dL HighLDL greater than 189 mg/dL Very high Cholesterol in VLDL Calc [Ma ss/Vol]Ordered By: Jarred Cline on 12-29-2022 Cholesterol in VLDL [Mass/Vol] 26 mg/dL [facility] Serum or plasma high density lipoprotein (HDL) cholesterol measurementOrdered By: Jarred Cline on 12-29-2022 Cholesterol in HDL [Mass/Vol] 30 mg/dL 23-[address] [facility] Comment on above: HDL CHOL ATP-III CLA SSIFICATION Cardiovascular RiskHDL > or equal to 60 mg/dL LOWHDL < 40 mg/dL HIGH Serum or plasma total choles terol/high density lipoprotein (HDL) cholesterol mass ratOrdered By: Jarred Cline on 12-29-2022 Cholesterol.total/Chol esterol in HDL [Mass ratio] 3.2 {ratio} <5.[address] [facility] Triglyceride [Mass/volume] i n Serum or PlasmaOrdered By: Jarred Cline on 12-29-2022 Triglyceride [Mass/Vol] 132 mg/dL 0-[address] [facility] Comment on above: TRIG ATP III [...] from glycated hemoglobin (Bld) [Mass/Vol] 212 mg/dL [facility] Hemoglobin A1c percentageOrd ered By: Jarred Cline on 12-28-2022 HbA1c (Bld) [Mass fraction] 9.0 % 4.3-5.[address] [facility] Comment on above: Increased risk for d iabetes: 5.7 - 6.4diabetes: >6.4glycemic control for adults with diabetes: <7.0 BNPon 05-19-2022 Natriuretic peptide B (Bld) [Mass/Vol] 74.0 pg/mL Normal <=1,800.0 [facility] Comment on above: Performed By: #### E LEC, BUN, BNP, LIVER, CREA #### [facility] [address] [place] [address] Dr. Brissa Ma BUNon 05-19-2022 Urea nitrogen [Mass/Vol] 41.0 mg/dL Critically high 7.0-18.0 [facility] Comment on above: Performed By: #### E LEC, BUN, BNP, LIVER, CREA #### [facility] [address] [address] [address] Brissa Ma CBC AUTO DIFFon 05-19-2022 BASO # 0.1 103/ul Normal 0.0-0.1 [facility] Comment on above: Performed By: #### E LEC, BUN, BNP, LIVER, CREA #### [facility] [address] [place] [address] Dr. Brissa Ma Basophils/100 WBC (Bld) 0.8 % Normal 0.2-2.0 [facility] Comment on above: Performed By: #### E LEC, BUN, BNP, LIVER, CREA #### [facility] [address] [place] [address] Dr. Brissa Ma EO # 0.1 103/ul Normal 0.0-0.7 [facility] Comment on above: Performed By: #### E LEC, BUN, BNP, LIVER, CREA #### [facility] [address] [place] [address] Dr. Brissa Ma Eosinophils/100 WBC (Bld) 1.1 % Normal 0.9-7.0 [facility] Comment on above: Performed By: #### E LEC, BUN, BNP, LIVER, CREA #### [facility] [address] [place] [address] Dr. Brissa Ma Erythrocyte distribution width (RBC) [Ratio] 14.1 % Normal 11.0-15.0 [facility] Comment on above: Performed By: #### E LEC, BUN, BNP, LIVER, CREA #### [facility] [address] [place] [address] Dr. Brissa Ma Hematocrit (Bld) [Volume fraction] 47.8 % Normal 42.0-54.0 [facility] Comment on above: Performed By: #### E LEC, BUN, BNP, LIVER, CREA #### [facility] [address] [place] [address] Dr. Brissa Ma Hemoglobin (Bld) [Mass/Vol] 15.3 g/dL Normal 14.0-18.0 The [facility] Comment on above: Performed By: #### E LEC, BUN, BNP, LIVER, CREA #### [facility] [address] [place] [address] Dr. Brissa Ma IG # 0.17 10e3/ul Critically high 0.00-0.03 [facility] Comment on above: Performed By: #### E LEC, BUN, BNP, LIVER, CREA #### [facility] [address] [place] [address] Dr. Brissa Ma IG % 1.7 % Critically high 0.0-0.5 The [facility] Comment on above: Performed By: #### E LEC, BUN, BNP, LIVER, CREA #### [facility] [address] [place] [address] Dr. Brissa Ma LYMPH # 3.8 103/ul Normal 1.2-3.8 The [facility] Comment on above: Performed By: #### E LEC, BUN, BNP, LIVER, CREA #### [facility] [address] [place] [address] Dr. Brissa Ma Lymphocytes/100 WBC (Bld) 38.4 % Normal 20.5-60.0 The [facility] Comment on above: Performed By: #### E LEC, BUN, BNP, LIVER, CREA #### [facility] [address] [place] [address] Dr. Brissa Ma MANUAL DIFF REQ NO Normal The [facility] Comment on above: Performed By: #### E LEC, BUN, BNP, LIVER, CREA #### [facility] [address] [place] [address] Dr. Brissa Ma MCH (RBC) [Entitic mass] 30.2 pg Normal 25.9-34.0 The [facility] Comment on above: Performed By: #### E LEC, BUN, BNP, LIVER, CREA #### [facility] [address] [place] [address] Dr. Brissa Ma MCHC (RBC) [Mass/Vol] 32.0 g/dL Normal 29.9-35.2 The [facility] Comment on above: Performed By: #### E LEC, BUN, BNP, LIVER, CREA #### [facility] [address] [place] [address] Dr. Brissa Ma MCV (RBC) [Entitic vol] 94.3 fL Critically high 80.0-94.0 The [facility] Comment on above: Performed By: #### E LEC, BUN, BNP, LIVER, CREA #### [facility] [address] [place] [address] Dr. Brissa Ma MONO # 0.7 103/ul Normal 0.3-0.8 The [facility] Comment on above: Performed By: #### E LEC, BUN, BNP, LIVER, CREA #### [facility] [address] [place] [address] Dr. Brissa Ma Monocytes/100 WBC (Bld) 7.4 % Normal 1.7-12.0 The [facility] Comment on above: Performed By: #### E LEC, BUN, BNP, LIVER, CREA #### [facility] [address] [place] [address] Dr. Brissa Ma NEUT # 5.0 103/ul Normal 1.4-6.5 The [facility] Comment on above: Performed By: #### E LEC, BUN, BNP, LIVER, CREA #### [facility] [address] [place] [address] Dr. Brissa Ma Neutrophils/100 WBC (Bld) 50.6 % Normal 43.0-75.0 The [facility] Comment on above: Performed By: #### E LEC, BUN, BNP, LIVER, CREA #### [facility] [address] [place] [address] Dr. Brissa Ma Platelet mean volume (Bld) [Entitic vol] 9.0 fL Critically low 9.5-13.5 The [facility] Comment on above: Performed By: #### E LEC, BUN, BNP, LIVER, CREA #### [facility] [address] [place] [address] Dr. Brissa Ma PLT 205 103/ul Normal 150-450 The [facility] Comment on above: Performed By: #### E LEC, BUN, BNP, LIVER, CREA #### [facility] [address] [place] [address] Dr. Birssa Ma RBC 5.07 106/ul Normal 4.70-6.10 The [facility] Comment on above: Performed By: #### E LEC, BUN, BNP, LIVER, CREA #### [facility] [address] [place] [address] Dr. Brissa Ma WBC 9.9 103/ul Normal 4.0-11.0 The [facility] Comment on above: Performed By: #### E LEC, BUN, BNP, LIVER, CREA #### [facility] [address] [address] [address] Brissa Ma CREATININEon 05-19-2022 Creatinine [Mass/Vol] 1.60 mg/dL Critically high 0.70-1.30 [facility] Comment on above: Performed By: #### E LEC, BUN, BNP, LIVER, CREA #### [facility] [address] [place] [address] Dr. Brissa Ma EGFR-AF GIBRALTARIAN 50 mL/min/1.73m2 Critically low >=60 The [facility] Comment on above: Performed By: #### E LEC, BUN, BNP, LIVER, CREA #### [facility] [address] [place] [address] Dr. Brisas Ma EGFR-NON AF GIBRALTARIAN 42 mL/min/1.73m2 Critically low >=60 [facility] Comment on above: Performed By: #### E LEC, BUN, BNP, LIVER, CREA #### [facility] [address] [place] [address] Dr. Brissa Ma ELECTROLYTESon 05-19-2022 Anion gap [Moles/Vol] 15.5 mmol/L Normal [facility] Comment on above: Performed By: #### E LEC, BUN, BNP, LIVER, CREA #### [facility] [address] [place] [address] Dr. Brissa Ma Chloride [Moles/Vol] 102 mmol/L Normal 98-107 [facility] Comment on above: Performed By: #### E LEC, BUN, BNP, LIVER, CREA #### [facility] [address] [place] [address] Dr. Brissa Ma CO2 [Moles/Vol] 25.5 mmol/L Normal 21.0-32.0 The [facility] Comment on above: Performed By: #### E LEC, BUN, BNP, LIVER, CREA #### [facility] [address] [place] [address] Dr. Brissa Ma Potassium [Moles/Vol] 5.0 mmol/L Normal 3.5-5.1 [facility] Comment on above: Performed By: #### E LEC, BUN, BNP, LIVER, CREA #### [facility] [address] [address] [address] Brissa Ma Sodium [Moles/Vol] 138 mmol/L Normal 136-145 [facility] Comment on above: Performed By: #### E LEC, BUN, BNP, LIVER, CREA #### [facility] [address] [place] [address] Dr. Brissa Ma GLYCOHEMOGLOBIN A1Con 2022 ADA RECOMMENDATION SEE BELOW Normal [facility] Comment on above: Result Comment: ADA RECOMMENDED LIMIT 4.0 - 6.0 ADA THERAPEUTIC TARGET < 7.0 ACTION SUGGESTED > 7.0 Performed By: #### A 1C #### [facility] [address] [place] [address] Dr. Brissa Ma Glucose [Mass/Vol] 203 mg/dL Normal [facility] Comment on above: Performed By: #### A 1C #### [facility] [address] [place] [address] Dr. Brissa Ma HbA1c (Bld) [Mass fraction] 8.7 % Critically high 4.5-6.2 [facility] Comment on above: Performed By: #### A 1C #### [facility] [address] [place] [address] Dr. Brissa Ma LIVER PROFILEon 05-19-2022 Albumin [Mass/Vol] 3.7 g/dL Normal 3.4-5.0 [facility] Comment on above: Performed By: #### E LEC, BUN, BNP, LIVER, CREA #### [facility] [address] [place] [address] Dr. Brissa Ma Albumin/Globulin [Mass ratio] 1.0 {ratio} Normal [facility] Comment on above: Performed By: #### E LEC, BUN, BNP, LIVER, CREA #### [facility] [address] [place] [address] Dr. Brissa Ma ALP [Catalytic activity/Vol] 80 U/L Normal 46-116 [facility] Comment on above: Performed By: #### E LEC, BUN, BNP, LIVER, CREA #### [facility] [address] [place] [address] Dr. Brissa Ma ALT [Catalytic activity/Vol] 16 U/L Normal 16-63 The [facility] Comment on above: Performed By: #### E LEC, BUN, BNP, LIVER, CREA #### [facility] [address] [place] [address] Dr. Brissa Ma AST [Catalytic activity/Vol] 18 U/L Normal 15-37 The [facility] Comment on above: Performed By: #### E LEC, BUN, BNP, LIVER, CREA #### [facility] [address] [place] [address] Dr. Brissa Ma BILI, CONJUGATED 0.1 mg/dL Normal 0.0-0.2 The [facility] Comment on above: Performed By: #### E LEC, BUN, BNP, LIVER, CREA #### [facility] [address] [place] [address] Dr. Brissa Ma Bilirubin [Mass/Vol] 0.7 mg/dL Normal 0.2-1.0 The [facility] Comment on above: Performed By: #### E LEC, BUN, BNP, LIVER, CREA #### [facility] [address] [place] [address] Dr. Brissa Ma Globulin (S) [Mass/Vol] 3.8 g/dL Normal The [facility] Comment on above: Performed By: #### E LEC, BUN, BNP, LIVER, CREA #### [facility] [address] [place] [address] Dr. Brissa Ma Protein [Mass/Vol] 7.5 g/dL Normal 6.4-8.2 The [facility] Comment on above: Performed By: #### E LEC, BUN, BNP, LIVER, CREA #### [facility] [address] [place] [address] Dr. Brissa Ma BNPon 01-22-2022 Natriuretic peptide B (Bld) [Mass/Vol] 150.0 pg/mL Normal <=1,800.0 [facility] Comment on above: Performed By: #### E LEC, BUN, BNP, LIVER, CREA #### [facility] [address] [place] [address] Dr. Brissa Ma BUNon 01-22-2022 Urea nitrogen [Mass/Vol] 22.0 mg/dL Critically high 7.0-18.0 The [facility] Comment on above: Performed By: #### E LEC, BUN, BNP, LIVER, CREA #### [facility] [address] [place] [address] Dr. Brissa Ma CBC AUTO DIFFon 01-22-2022 BASO # 0.0 103/ul Normal 0.0-0.1 The [facility] Comment on above: Performed By: #### E LEC, BUN, BNP, LIVER, CREA #### [facility] [address] [place] [address] Dr. Brissa Ma Basophils/100 WBC (Bld) 0.5 % Normal 0.2-2.0 The [facility] Comment on above: Performed By: #### E LEC, BUN, BNP, LIVER, CREA #### [facility] [address] [place] [address] Dr. Brissa Ma EO # 0.1 103/ul Normal 0.0-0.7 The [facility] Comment on above: Performed By: #### E LEC, BUN, BNP, LIVER, CREA #### [facility] [address] [place] [address] Dr. Brissa Ma Eosinophils/100 WBC (Bld) 1.9 % Normal 0.9-7.0 The [facility] Comment on above: Performed By: #### E LEC, BUN, BNP, LIVER, CREA #### [facility] [address] [place] [address] Dr. Brissa Ma Erythrocyte distribution width (RBC) [Ratio] 14.1 % Normal 11.0-15.0 The [facility] Comment on above: Performed By: #### E LEC, BUN, BNP, LIVER, CREA #### [facility] [address] [place] [address] Dr. Brissa Ma Hematocrit (Bld) [Volume fraction] 43.1 % Normal 42.0-54.0 The [facility] Comment on above: Performed By: #### E LEC, BUN, BNP, LIVER, CREA #### [facility] [address] [place] [address] Dr. Brissa Ma Hemoglobin (Bld) [Mass/Vol] 13.7 g/dL Critically low 14.0-18.0 [facility] Comment on above: Performed By: #### E LEC, BUN, BNP, LIVER, CREA #### [facility] [address] [place] [address] Dr. Brissa Ma IG # 0.05 10e3/ul Critically high 0.00-0.03 [facility] Comment on above: Performed By: #### E LEC, BUN, BNP, LIVER, CREA #### [facility] [address] [place] [address] Dr. Brissa Ma IG % 0.8 % Critically high 0.0-0.5 [facility] Comment on above: Performed By: #### E LEC, BUN, BNP, LIVER, CREA #### [facility] [address] [place] [address] Dr. Brissa Ma LYMPH # 2.7 103/ul Normal 1.2-3.8 The [facility] Comment on above: Performed By: #### E LEC, BUN, BNP, LIVER, CREA #### [facility] [address] [place] [address] Dr. Brissa Ma Lymphocytes/100 WBC (Bld) 42.1 % Normal 20.5-60.0 [facility] Comment on above: Performed By: #### E LEC, BUN, BNP, LIVER, CREA #### [facility] [address] [place] [address] Dr. Brissa Ma MANUAL DIFF REQ NO Normal The [facility] Comment on above: Performed By: #### E LEC, BUN, BNP, LIVER, CREA #### [facility] [address] [place] [address] Dr. Brissa Ma MCH (RBC) [Entitic mass] 29.8 pg Normal 25.9-34.0 [facility] Comment on above: Performed By: #### E LEC, BUN, BNP, LIVER, CREA #### [facility] [address] [place] [address] Dr. Brissa Ma MCHC (RBC) [Mass/Vol] 31.8 g/dL Normal 29.9-35.2 The [facility] Comment on above: Performed By: #### E LEC, BUN, BNP, LIVER, CREA #### [facility] [address] [place] [address] Dr. Brissa Ma MCV (RBC) [Entitic vol] 93.9 fL Normal 80.0-94.0 The [facility] Comment on above: Performed By: #### E LEC, BUN, BNP, LIVER, CREA #### [facility] [address] [place] [address] Dr. Brissa Ma MONO # 0.5 103/ul Normal 0.3-0.8 The [facility] Comment on above: Performed By: #### E LEC, BUN, BNP, LIVER, CREA #### [facility] [address] [place] [address] Dr. Brissa Ma Monocytes/100 WBC (Bld) 7.8 % Normal 1.7-12.0 The [facility] Comment on above: Performed By: #### E LEC, BUN, BNP, LIVER, CREA #### [facility] [address] [place] [address] Dr. Brissa Ma NEUT # 3.0 103/ul Normal 1.4-6.5 The [facility] Comment on above: Performed By: #### E LEC, BUN, BNP, LIVER, CREA #### [facility] [address] [place] [address] Dr. Brissa Ma Neutrophils/100 WBC (Bld) 46.9 % Normal 43.0-75.0 The [facility] Comment on above: Performed By: #### E LEC, BUN, BNP, LIVER, CREA #### [facility] [address] [place] [address] Dr. Brissa Ma Platelet mean volume (Bld) [Entitic vol] 9.2 fL Critically low 9.5-13.5 The [facility] Comment on above: Performed By: #### E LEC, BUN, BNP, LIVER, CREA #### [facility] [address] [place] [address] Dr. Brissa Ma PLT 163 103/ul Normal 150-450 [facility] Comment on above: Performed By: #### E LEC, BUN, BNP, LIVER, CREA #### [facility] [address] [place] [address] Dr. Brissa Ma RBC 4.59 106/ul Critically low 4.70-6.10 [facility] Comment on above: Performed By: #### E LEC, BUN, BNP, LIVER, CREA #### [facility] [address] [place] [address] Dr. Brissa Ma WBC 6.4 103/ul Normal 4.0-11.0 [facility] Comment on above: Performed By: #### E LEC, BUN, BNP, LIVER, CREA #### [facility] [address] [place] [address] Dr. Brissa Ma CREATININEon 01-22-2022 Creatinine [Mass/Vol] 1.47 mg/dL Critically high 0.70-1.30 [facility] Comment on above: Performed By: #### E LEC, BUN, BNP, LIVER, CREA #### [facility] [address] [place] [address] Dr. Brissa Ma EGFR-AF GIBRALTARIAN 56 mL/min/1.73m2 Critically low >=60 [facility] Comment on above: Performed By: #### E LEC, BUN, BNP, LIVER, CREA #### [facility] [address] [place] [address] Dr. Brissa Ma EGFR-NON AF GIBRALTARIAN 46 mL/min/1.73m2 Critically low >=60 [facility] Comment on above: Performed By: #### E LEC, BUN, BNP, LIVER, CREA #### [facility] [address] [place] [address] Dr. Brissa Ma ELECTROLYTESon 01-22-2022 Anion gap [Moles/Vol] 10.1 mmol/L Normal [facility] Comment on above: Performed By: #### E LEC, BUN, BNP, LIVER, CREA #### [facility] [address] [address] [address] Brissa Ma Chloride [Moles/Vol] 106 mmol/L Normal 98-107 The [facility] Comment on above: Performed By: #### E LEC, BUN, BNP, LIVER, CREA #### [facility] [address] [place] [address] Dr. Brissa Ma CO2 [Moles/Vol] 28.4 mmol/L Normal 21.0-32.0 The [facility] Comment on above: Performed By: #### E LEC, BUN, BNP, LIVER, CREA #### [facility] [address] [address] [address] Brissa Ma Potassium [Moles/Vol] 4.5 mmol/L Normal 3.5-5.1 The [facility] Comment on above: Performed By: #### E LEC, BUN, BNP, LIVER, CREA #### [facility] [address] [place] [address] Dr. Brissa Ma Sodium [Moles/Vol] 140 mmol/L Normal 136-145 The [facility] Comment on above: Performed By: #### E LEC, BUN, BNP, LIVER, CREA #### [facility] [address] [place] [address] Dr. Brissa Ma GLYCOHEMOGLOBIN A1Con 2021 ADA RECOMMENDATION SEE BELOW Normal [facility] Comment on above: Result Comment: ADA RECOMMENDED LIMIT 4.0 - 6.0 ADA THERAPEUTIC TARGET < 7.0 ACTION SUGGESTED > 7.0 Performed By: #### A 1C #### [facility] [address] [place] [address] Dr. Brissa Ma Glucose [Mass/Vol] 223 mg/dL Normal The [facility] Comment on above: Performed By: #### A 1C #### [facility] [address] [place] [address] Dr. Brissa Ma HbA1c (Bld) [Mass fraction] 9.4 % Critically high 4.5-6.2 The [facility] Comment on above: Performed By: #### A 1C #### [facility] [address] [place] [address] Dr. Brissa Ma LIVER PROFILEon 01-22-2022 Albumin [Mass/Vol] 3.6 g/dL Normal 3.4-5.0 [facility] Comment on above: Performed By: #### E LEC, BUN, BNP, LIVER, CREA #### [facility] [address] [address] [address] Brissa Ma Albumin/Globulin [Mass ratio] 1.0 {ratio} Normal The [facility] Comment on above: Performed By: #### E LEC, BUN, BNP, LIVER, CREA #### [facility] [address] [place] [address] Dr. Brissa Ma ALP [Catalytic activity/Vol] 86 U/L Normal 46-116 The [facility] Comment on above: Performed By: #### E LEC, BUN, BNP, LIVER, CREA #### [facility] [address] [place] [address] Dr. Brissa Ma ALT [Catalytic activity/Vol] 18 U/L Normal 16-63 The [facility] Comment on above: Performed By: #### E LEC, BUN, BNP, LIVER, CREA #### [facility] [address] [place] [address] Dr. Brissa Ma AST [Catalytic activity/Vol] 20 U/L Normal 15-37 The [facility] Comment on above: Performed By: #### E LEC, BUN, BNP, LIVER, CREA #### [facility] [address] [place] [address] Dr. Brissa Ma BILI, CONJUGATED 0.1 mg/dL Normal 0.0-0.2 The [facility] Comment on above: Performed By: #### E LEC, BUN, BNP, LIVER, CREA #### [facility] [facility] [address] [place] [address] Dr. Brissa Ma Bilirubin [Mass/Vol] 0.4 mg/dL Normal 0.2-1.0 [facility] Comment on above: Performed By: #### E LEC, BUN, BNP, LIVER, CREA #### [facility] [address] [place] [address] Dr. Brissa Ma Globulin (S) [Mass/Vol] 3.7 g/dL Normal [facility] Comment on above: Performed By: #### E LEC, BUN, BNP, LIVER, CREA #### [facility] [address] [place] [address] Dr. Brissa Ma Protein [Mass/Vol] 7.3 g/dL Normal 6.4-8.2 [facility] Comment on above: Performed By: #### E LEC, BUN, BNP, LIVER, CREA #### [facility] [address] [place] [address] Dr. Brissa Ma BUNon 10-08-2021 Urea nitrogen [Mass/Vol] 25.0 mg/dL Critically high 7.0-18.0 [facility] Comment on above: Performed By: #### E LEC, BUN, BNP, LIVER, CREA #### [facility] [address] [place] [address] Dr. Brissa Ma CBC AUTO DIFFon 10-08-2021 BASO # 0.1 103/ul Normal 0.0-0.1 [facility] Comment on above: Performed By: #### C BC #### [facility] [address] [place] [address] Dr. Brissa Ma Basophils/100 WBC (Bld) 0.7 % Normal 0.2-2.0 [facility] Comment on above: Performed By: #### C BC #### [facility] [address] [place] [address] Dr. Brissa Ma EO # 0.1 103/ul Normal 0.0-0.7 [facility] Comment on above: Performed By: #### C BC #### [facility] [address] [place] [address] Dr. Brissa Ma Eosinophils/100 WBC (Bld) 1.8 % Normal 0.9-7.0 [facility] Comment on above: Performed By: #### C BC #### [facility] [address] [place] [address] Dr. Brissa Ma Erythrocyte distribution width (RBC) [Ratio] 14.1 % Normal 11.0-15.0 The [facility] Comment on above: Performed By: #### C BC #### [facility] [address] [place] [address] Dr. Brissa Ma Hematocrit (Bld) [Volume fraction] 41.9 % Critically low 42.0-54.0 [facility] Comment on above: Performed By: #### C BC #### [facility] [address] [place] [address] Dr. Brissa Ma Hemoglobin (Bld) [Mass/Vol] 13.3 g/dL Critically low 14.0-18.0 [facility] Comment on above: Performed By: #### C BC #### [facility] [address] [place] [address] Dr. Brissa Ma IG # 0.06 10e3/ul Critically high 0.00-0.03 [facility] Comment on above: Performed By: #### C BC #### [facility] [address] [place] [address] Dr. Brissa Ma IG % 0.9 % Critically high 0.0-0.5 [facility] Comment on above: Performed By: #### C BC #### [facility] [address] [place] [address] Dr. Brissa Ma LYMPH # 2.6 103/ul Normal 1.2-3.8 [facility] Comment on above: Performed By: #### C BC #### [facility] [address] [place] [address] Dr. Brissa Ma Lymphocytes/100 WBC (Bld) 37.8 % Normal 20.5-60.0 [facility] Comment on above: Performed By: #### C BC #### [facility] [address] [place] [address] Dr. Brissa Ma MANUAL DIFF REQ NO Normal [facility] Comment on above: Performed By: #### C BC #### [facility] [address] [place] [address] Dr. Brissa Ma MCH (RBC) [Entitic mass] 30.4 pg Normal 25.9-34.0 [facility] Comment on above: Performed By: #### C BC #### [facility] [address] [address] [address] Brissa Ma MCHC (RBC) [Mass/Vol] 31.7 g/dL Normal 29.9-35.2 [facility] Comment on above: Performed By: #### C BC #### [facility] [address] [address] [address] Brissa Ma MCV (RBC) [Entitic vol] 95.7 fL Critically high 80.0-94.0 [facility] Comment on above: Performed By: #### C BC #### [facility] [address] [address] [address] Brissa Ma MONO # 0.6 103/ul Normal 0.3-0.8 [facility] Comment on above: Performed By: #### C BC #### [facility] [address] [place] [address] Dr. Brissa Ma Monocytes/100 WBC (Bld) 8.4 % Normal 1.7-12.0 [facility] Comment on above: Performed By: #### C BC #### [facility] [address] [address] [address] Brissa Ma NEUT # 3.4 103/ul Normal 1.4-6.5 [facility] Comment on above: Performed By: #### C BC #### [facility] [address] [place] [address] Dr. Brissa Ma Neutrophils/100 WBC (Bld) 50.4 % Normal 43.0-75.0 [facility] Comment on above: Performed By: #### C BC #### [facility] [address] [address] [address] Brissa Ma Platelet mean volume (Bld) [Entitic vol] 9.2 fL Critically low 9.5-13.5 [facility] Comment on above: Performed By: #### C BC #### [facility] [address] [address] [address] Brissa Ma PLT 151 103/ul Normal 150-450 [facility] Comment on above: Performed By: #### C BC #### [facility] [address] [address] [address] Brissa Ma RBC 4.38 106/ul Critically low 4.70-6.10 [facility] Comment on above: Performed By: #### C BC #### [facility] [address] [place] [address] Dr. Brissa Ma WBC 6.8 103/ul Normal 4.0-11.0 [facility] Comment on above: Performed By: #### C BC #### [facility] [address] [place] [address] Dr. Brissa Ma CREATININEon 10-08-2021 Creatinine [Mass/Vol] 1.30 mg/dL Normal 0.70-1.30 [facility] Comment on above: Performed By: #### E LEC, BUN, BNP, LIVER, CREA #### [facility] [address] [place] [address] Dr. Brissa Ma EGFR-AF GIBRALTARIAN >60 Normal >=60 [facility] Comment on above: Performed By: #### E LEC, BUN, BNP, LIVER, CREA #### [facility] [address] [place] [address] Dr. Brissa Ma EGFR-NON AF GIBRALTARIAN 53 mL/min/1.73m2 Critically low >=60 [facility] Comment on above: Performed By: #### E LEC, BUN, BNP, LIVER, CREA #### [facility] [address] [place] [address] Dr. Brissa Ma ELECTROLYTESon 10-08-2021 Anion gap [Moles/Vol] 12.3 mmol/L Normal [facility] Comment on above: Performed By: #### E LEC, BUN, BNP, LIVER, CREA #### [facility] [address] [place] [address] Dr. Brissa Ma Chloride [Moles/Vol] 106 mmol/L Normal 98-107 [facility] Comment on above: Performed By: #### E LEC, BUN, BNP, LIVER, CREA #### [facility] [address] [place] [address] Dr. Brissa Ma CO2 [Moles/Vol] 24.3 mmol/L Normal 21.0-32.0 [facility] Comment on above: Performed By: #### E LEC, BUN, BNP, LIVER, CREA #### [facility] [address] [place] [address] Dr. Brissa Ma Potassium [Moles/Vol] 4.6 mmol/L Normal 3.5-5.1 [facility] Comment on above: Performed By: #### E LEC, BUN, BNP, LIVER, CREA #### [facility] [address] [place] [address] Dr. Brissa Ma Sodium [Moles/Vol] 138 mmol/L Normal 136-145 [facility] Comment on above: Performed By: #### E LEC, BUN, BNP, LIVER, CREA #### [facility] [address] [place] [address] Dr. Brissa Ma GLYCOHEMOGLOBIN A1Con 2021 ADA RECOMMENDATION SEE BELOW Normal [facility] Comment on above: Result Comment: ADA RECOMMENDED LIMIT 4.0 - 6.0 ADA THERAPEUTIC TARGET < 7.0 ACTION SUGGESTED > 7.0 Performed By: #### A 1C #### [facility] [address] [place] [address] Dr. Brissa Ma Glucose [Mass/Vol] 189 mg/dL Normal [facility] Comment on above: Performed By: #### A 1C #### [facility] [address] [place] [address] Dr. Brissa Ma HbA1c (Bld) [Mass fraction] 8.2 % Critically high 4.5-6.2 [facility] Comment on above: Performed By: #### A 1C #### [facility] [address] [place] [address] Dr. Brissa Ma LIPID PROFILEon 10-08-2021 CHOL-HDL RATIO NORM SEE BELOW Normal [facility] Comment on above: Result Comment: 3.3 - 4.4 LOW RISK 4.4 - 7.1 AVERAGE RISK 7.1 - 11.0 MODERATE RISK >11.0 HIGH RISK Performed By: #### C LEELEE, ELEC, LIPID, LIVER, BUN #### [facility] [address] [place] [address] Dr. Brissa Ma Cholesterol [Mass/Vol] 75 mg/dL Normal <=200 [facility] Comment on above: Performed By: #### C LEELEE, ELEC, LIPID, LIVER, BUN #### [facility] [address] [address] [address] Brissa Ma Cholesterol in HDL [Mass/Vol] 33 mg/dL Critically low 40-60 [facility] Comment on above: Performed By: #### C LEELEE, ELEC, LIPID, LIVER, BUN #### [facility] [address] [address] [address] Brissa Ma Cholesterol in LDL [Mass/Vol] 22.0 mg/dL Normal [facility] Comment on above: Performed By: #### C LEELEE, ELEC, LIPID, LIVER, BUN #### [facility] [address] [address] [address] Brissa Ma Cholesterol.total/Chol esterol in HDL [Mass ratio] 2.3 {ratio} Normal [facility] Comment on above: Performed By: #### C LEELEE, ELEC, LIPID, LIVER, BUN #### [facility] [address] [address] [address] Brissa Ma HDL NORMAL > or = 60 mg/dl - LO W CARDIOVASCULAR RISK <40 mg/dl - HIGH CARDIOVASCULAR RISK Normal [facility] Comment on above: Performed By: #### C LEELEE, ELEC, LIPID, LIVER, BUN #### [facility] [address] [address] [address] Brissa Ma LDL CALC NORMAL SEE BELOW Normal [facility] Comment on above: Result Comment: <100 mg/dl OPTIMAL 100 - 129 mg/dl NEAR OR ABOVE OPTIMAL 130 - 159 mg/dl BORDERLINE HIGH 160 - 189 mg/dl HIGH >190 mg/dl VERY HIGH Performed By: #### C LEELEE, ELEC, LIPID, LIVER, BUN #### [facility] [address] [address] [address] Brissa Ma Triglyceride [Mass/Vol] 100 mg/dL Normal <=150 [facility] Comment on above: Performed By: #### C LEELEE, ELEC, LIPID, LIVER, BUN #### [facility] [address] [place] [address] Dr. Brissa Ma VLDL CALC 20.0 mg/dL Normal [facility] Comment on above: Performed By: #### C LEELEE, ELEC, LIPID, LIVER, BUN #### [facility] [address] [place] [address] Dr. Brissa Ma LIVER PROFILEon 10-08-2021 Albumin [Mass/Vol] 3.4 g/dL Normal 3.4-5.0 [facility] Comment on above: Performed By: #### E LEC, BUN, BNP, LIVER, CREA #### [facility] [address] [place] [address] Dr. Brissa Ma Albumin/Globulin [Mass ratio] 1.0 {ratio} Normal [facility] Comment on above: Performed By: #### E LEC, BUN, BNP, LIVER, CREA #### [facility] [address] [place] [address] Dr. Brissa Ma ALP [Catalytic activity/Vol] 96 U/L Normal 46-116 [facility] Comment on above: Performed By: #### E LEC, BUN, BNP, LIVER, CREA #### [facility] [address] [place] [address] Dr. Brissa Ma ALT [Catalytic activity/Vol] 24 U/L Normal 16-63 [facility] Comment on above: Performed By: #### E LEC, BUN, BNP, LIVER, CREA #### [facility] [address] [place] [address] Dr. Brissa Ma AST [Catalytic activity/Vol] 14 U/L Critically low 15-37 [facility] Comment on above: Performed By: #### E LEC, BUN, BNP, LIVER, CREA #### [facility] [address] [place] [address] Dr. Brissa Ma BILI, CONJUGATED 0.1 mg/dL Normal 0.0-0.2 [facility] Comment on above: Performed By: #### E LEC, BUN, BNP, LIVER, CREA #### [facility] [address] [place] [address] Dr. Brissa Ma Bilirubin [Mass/Vol] 0.4 mg/dL Normal 0.2-1.0 [facility] Comment on above: Performed By: #### E LEC, BUN, BNP, LIVER, CREA #### [facility] [address] [place] [address] Dr. Brissa Ma Globulin (S) [Mass/Vol] 3.5 g/dL Normal [facility] Comment on above: Performed By: #### E LEC, BUN, BNP, LIVER, CREA #### [facility] [address] [address] [address] Brissa Ma Protein [Mass/Vol] 6.9 g/dL Normal 6.4-8.2 [facility] Comment on above: Performed By: #### E LEC, BUN, BNP, LIVER, CREA #### [facility] [address] [place] [address] Dr. Brissa Ma Vital Signs Date Time Vital Sign Value Performing Clinician Facility 11-09-2024 11:06-0400 Body height 170.2 cm Stephanie Steward MD Work Phone: [facility] 11-09-2024 11:06-0400 Body mass index (BMI) [Ratio] 30.07 kg/m2 Stephanie Steward MD Work Phone: [facility] 11-09-2024 11:06-0400 Body weight 87.09 kg Stephanie Steward MD Work Phone: [facility] 11-09-2024 11:06-0400 Diastolic blood pressure 56 mm[Hg] Setphanie Steward MD Work Phone: [facility] 11-09-2024 11:06-0400 Heart rate 68 /min Stephanie Steward MD Work Phone: [facility] 11-09-2024 11:06-0400 Systolic blood pressure 116 mm[Hg] Stephanie Steward MD Work Phone: [facility] 10-14-2024 09:30-0400 Body height 170.2 cm Veda Petznick DO Work Phone: [facility] 10-14-2024 09:30-0400 Body mass index (BMI) [Ratio] 29.66 kg/m2 Veda Petznick DO Work Phone: [facility] 10-14-2024 09:30-0400 Body temperature 96.3 [degF] Veda Petznick DO Work Phone: [facility] 10-14-2024 09:30-0400 Body weight 85.91 kg Veda Petznick DO Work Phone: [facility] 10-14-2024 09:30-0400 Diastolic blood pressure 78 mm[Hg] Veda Petznick DO Work Phone: [facility] 10-14-2024 09:30-0400 Heart rate 84 /min Veda Petznick DO Work Phone: [facility] 10-14-2024 09:30-0400 SaO2% (BldA) [Mass fraction] 98 % Veda Petznick DO Work Phone: [facility] 10-14-2024 09:30-0400 Systolic blood pressure 108 mm[Hg] Veda Petznick DO Work Phone: [facility] 07-19-2024 09:23-0400 Body height 170.2 cm Veda Petznick DO Work Phone: [facility] 07-19-2024 09:23-0400 Body mass index (BMI) [Ratio] 28.35 kg/m2 Veda Petznick DO Work Phone: [facility] 07-19-2024 09:23-0400 Body temperature 98.2 [degF] Veda Petznick DO Work Phone: [facility] 07-19-2024 09:23-0400 Body weight 82.1 kg Veda Petznick DO Work Phone: [facility] 07-19-2024 09:23-0400 Diastolic blood pressure 64 mm[Hg] Veda Petznick DO Work Phone: [facility] 07-19-2024 09:23-0400 Heart rate 82 /min Veda Petznick DO Work Phone: [facility] 07-19-2024 09:23-0400 SaO2% (BldA) [Mass fraction] 98 % Veda Petznick DO Work Phone: [facility] 07-19-2024 09:23-0400 Systolic blood pressure 112 mm[Hg] Veda Petznick DO Work Phone: [facility] 04-18-2024 12:54-0500 Body height 170.2 cm Veda Petznick DO Work Phone: [facility] 04-18-2024 12:54-0500 Body mass index (BMI) [Ratio] 27.88 kg/m2 Veda Petznick DO Work Phone: [facility] 04-18-2024 12:54-0500 Body temperature 98.2 [degF] Veda Petznick DO Work Phone: [facility] 04-18-2024 12:54-0500 Body weight 80.74 kg Veda Petznick DO Work Phone: [facility] 04-18-2024 12:54-0500 Diastolic blood pressure 78 mm[Hg] Veda Petznick DO Work Phone: [facility] 04-18-2024 12:54-0500 Heart rate 76 /min Veda Petznick DO Work Phone: [facility] 04-18-2024 12:54-0500 SaO2% (BldA) [Mass fraction] 97 % Veda Petznick DO Work Phone: [facility] 04-18-2024 12:54-0500 Systolic blood pressure 126 mm[Hg] Veda Petznick DO Work Phone: [facility] 03-09-2024 15:16-0500 Body height 170.2 cm Stephanie Steward MD Work Phone: [facility] 03-09-2024 15:16-0500 Body mass index (BMI) [Ratio] 28.19 kg/m2 Stephanie Steward MD Work Phone: [facility] 03-09-2024 15:16-0500 Body weight 81.65 kg Stephanie Steward MD Work Phone: [facility] 03-09-2024 15:16-0500 Diastolic blood pressure 70 mm[Hg] Stephanie Steward MD Work Phone: [facility] 03-09-2024 15:16-0500 Heart rate 68 /min Stephanie Steward MD Work Phone: [facility] 03-09-2024 15:16-0500 Systolic blood pressure 120 mm[Hg] Stephanie Steward MD Work Phone: [facility] 01-18-2024 09:01-0500 Body height 170.2 cm Veda Petznick DO Work Phone: [facility] 01-18-2024 09:01-0500 Body mass index (BMI) [Ratio] 28.19 kg/m2 Veda Petznick DO Work Phone: [facility] 01-18-2024 09:01-0500 Body temperature 98.01 [degF] Veda Petznick DO Work Phone: [facility] 01-18-2024 09:01-0500 Body weight 81.65 kg Veda Petznick DO Work Phone: [facility] 01-18-2024 09:01-0500 Diastolic blood pressure 66 mm[Hg] Veda Petznick DO Work Phone: [facility] 01-18-2024 09:01-0500 Heart rate 92 /min Veda Petznick DO Work Phone: [facility] 01-18-2024 09:01-0500 SaO2% (BldA) [Mass fraction] 94 % Veda Petznick DO Work Phone: [facility] 01-18-2024 09:01-0500 Systolic blood pressure 110 mm[Hg] Veda Petznick DO Work Phone: [facility] 12-10-2023 13:27-0400 Body height 170.2 cm Kennedy Camara DPM Work Phone: [facility] 12-10-2023 13:27-0400 Body mass index (BMI) [Ratio] 28.04 kg/m2 Kennedy Camara DPM Work Phone: [facility] 12-10-2023 13:27-0400 Body weight 81.19 kg Kennedy Camara DPM Work Phone: [facility] 12-10-2023 13:27-0400 Respiratory rate 17 /min Kennedy Camara DPM Work Phone: [facility] 12-03-2023 13:58-0400 Body height 170.2 cm Veda Petznick DO Work Phone: [facility] 12-03-2023 13:58-0400 Body mass index (BMI) [Ratio] 28.16 kg/m2 Veda Petznick DO Work Phone: [facility] 12-03-2023 13:58-0400 Body temperature 96.4 [degF] Veda Petznick DO Work Phone: [facility] 12-03-2023 13:58-0400 Body weight 81.56 kg Veda Petznick DO Work Phone: [facility] 12-03-2023 13:58-0400 Diastolic blood pressure 68 mm[Hg] Veda Petznick DO Work Phone: [facility] 12-03-2023 13:58-0400 Heart rate 74 /min Veda Petznick DO Work Phone: [facility] 12-03-2023 13:58-0400 SaO2% (BldA) [Mass fraction] 98 % Veda Petznick DO Work Phone: [facility] 12-03-2023 13:58-0400 Systolic blood pressure 102 mm[Hg] Veda Petznick DO Work Phone: [facility] 07-24-2023 13:40-0400 Body height 167.6 cm Henrry Issa MD Work Phone: [facility] 07-24-2023 13:40-0400 Body mass index (BMI) [Ratio] 30.02 kg/m2 Henrry Issa MD Work Phone: [facility] 07-24-2023 13:40-0400 Body weight 84.37 kg Henrry Issa MD Work Phone: [facility] 07-24-2023 13:40-0400 Diastolic blood pressure 74 mm[Hg] Henrry Issa MD Work Phone: [facility] 07-24-2023 13:40-0400 Heart rate 82 /min Henrry Issa MD Work Phone: [facility] 07-24-2023 13:40-0400 Systolic blood pressure 134 mm[Hg] Henrry Issa MD Work Phone: [facility] 04-08-2023 13:24-0500 Body height 170.2 cm Negro BROOKS Work Phone: [facility] 04-08-2023 13:24-0500 Body mass index (BMI) [Ratio] 28.19 kg/m2 Negro Brown PA Work Phone: [facility] 04-08-2023 13:24-0500 Body weight 81.65 kg Negro Brown PA Work Phone: [facility] 01-14-2023 14:28-0500 Body height 170.2 cm Henrry Issa MD Work Phone: [facility] 01-14-2023 14:28-0500 Body mass index (BMI) [Ratio] 30.07 kg/m2 Henrry Issa MD Work Phone: [facility] 01-14-2023 14:28-0500 Body weight 87.09 kg Henrry Issa MD Work Phone: [facility] 01-14-2023 14:28-0500 Diastolic blood pressure 60 mm[Hg] Henrry Issa MD Work Phone: [facility] 01-14-2023 14:28-0500 Heart rate 92 /min Henrry Issa MD Work Phone: [facility] 01-14-2023 14:28-0500 Systolic blood pressure 106 mm[Hg] Henrry Issa MD Work Phone: [facility] 01-02-2023 11:43-0400 Body mass index (BMI) [Ratio] 30.4 kg/m2 JR Hugo Moser Work Phone: [facility] 12-31-2022 13:51-0400 Diastolic blood pressure 70 mm[Hg] JR Hugo Moser Work Phone: [facility] [facility] 12-31-2022 13:51-0400 Heart rate 83 /min JR Hugo Moser Work Phone: [facility] 12-31-2022 13:51-0400 Respiratory rate 14 /min JR Hugo Moser Work Phone: [facility] 12-31-2022 13:51-0400 SaO2% (BldA) [Mass fraction] 98 % JR Hugo Moser Work Phone: [facility] 12-31-2022 13:51-0400 Systolic blood pressure 112 mm[Hg] JR Hugo Moser Work Phone: [facility] 12-31-2022 12:00-0400 Body temperature 97.8 [degF] JR Hugo Moser Work Phone: [facility] 12-31-2022 06:00-0400 Body weight 86.5 kg JR Hugo Moser Work Phone: [facility] 12-30-2022 15:37-0400 Inhaled oxygen flow rate 6 L/min JR Hugo Moser Work Phone: [facility] 12-30-2022 15:12-0400 Body height 170.18 cm JR Hugo Moser Work Phone: [facility] 12-30-2022 15:120400 Body mass index (BMI) [Ratio] 30.4 kg/m2 JR Hugo Moser Work Phone: [facility] Encounters Encounter Date Encounter Type Care Provider Facility Start: 11-09-2024 End: 11-09-2024 Office outpatient visit 25 minutes Stephanie Steward MD Work Phone: [facility] Comment on above: Paroxysmal atrial fi brillation (Multi) (Primary Dx); History of cardiomyopathy; Mild tricuspid regurgitation; AV block, Mobitz II; Pacemaker; Mixed hyperlipidemia; Diabetes mellitus type II, non insulin dependent (Multi); Obesity (BMI 30.0-34.9); Never smoked tobacco; High risk medication use Start: 10-18-2024 End: 10-18-2024 ambulatory Stephanie Steward Facility:[facility] Start: 10-18-2024 Non-patient / Non-visit [facility] Start: 10-14-2024 End: 10-14-2024 Office outpatient visit 25 minutes Veda Rome DO Work Phone: [facility] 230 Comment on above: Type 2 diabetes enriqueta 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, with long-term current use of insulin (HCC) Start: 10-14-2024 End: 10-14-2024 ambulatory VEDA ROME Not Available Start: 08-02-2024 End: 08-02-2024 Telephone encounter Veda Rome DO Work Phone: [facility] 230 Comment on above: Blood Sugar Problem Start: 07-19-2024 End: 07-19-2024 ambulatory Stephanie Steward Facility: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, with long-term current use of insulin (HCC) ([facility]/HCC) (Primary Dx); Type 2 diabetes mell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, without long-term current use of insulin ([facility]) ([facility]) Start: 07-19-2024 End: 07-19-2024 ambulatory VEDA ROME Not Available Start: 07-18-2024 End: 07-18-2024 Telephone encounter Veda Rome DO Work Phone: [facility] 563 Comment on above: Appointment Confirma tion Start: 04-18-2024 End: 04-18-2024 Office outpatient visit 25 minutes Veda Rome DO Work Phone: [facility] 986 Comment on above: Type 2 diabetes enriqueta 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, without long-term current use of insulin (HCC) ([facility]) Start: 04-18-2024 End: 04-18-2024 ambulatory VEDA ROME Not Available Start: 04-15-2024 End: 04-15-2024 Telephone encounter Veda Rome DO Work Phone: [facility] 775 Comment on above: Appointment Confirma tion Start: 04-15-2024 End: 04-15-2024 Patient encounter procedure Hugo Moser JR Work Phone: [facility]-Pacemaker Check Start: 04-15-2024 End: 04-15-2024 ambulatory Hugo Moser JR Work Phone: [facility] Work Phone: Start: 04-15-2024 Non-patient / Non-visit Melvin Moser JR Work Phone: [facility] Start: 03-09-2024 End: 03-09-2024 Office outpatient visit 25 minutes Stephanie Steward MD Work Phone: [facility] Comment on above: Pacemaker (Primary D x); AV block, Mobitz II; Mixed hyperlipidemia; Paroxysmal atrial fibrillation (Multi); Mild tricuspid regurgitation; Diabetes mellitus type II, non insulin dependent (Multi); BMI 28.0-28.9,adult; Never smoked tobacco; Overweight Start: 03-09-2024 End: 03-09-2024 ambulatory STEPHANIE Arevalo [facility] Ambulatory Start: 02-17-2024 End: 02-17-2024 Bamboo [...] without long-term current use of insulin (HCC) ([facility]); Type 2 diabetes mellitus with hyperglycemia, without long-term current use of insulin ([facility]/HCC) Start: 01-18-2024 End: 01-18-2024 ambulatory VEDA ROME Not Available Start: 01-15-2024 End: 01-15-2024 ambulatory Stephanie Steward Facility:[facility] Start: 01-15-2024 Non-patient / Non-visit [facility] Start: 01-14-2024 End: 01-14-2024 Telephone encounter Veda Rome DO Work Phone: [facility] 230 Start: 12-10-2023 End: 12-10-2023 Bamboo flowsheet Kennedy Camara DPM Work Phone: [facility] Start: 12-10-2023 End: 12-10-2023 Bamboo flowsheet Kennedy Camara DPM Work Phone: [facility] Start: 12-10-2023 End: 12-10-2023 Patient encounter procedure Kennedy Camara DPM Work Phone: [facility] Comment on above: Type 2 diabetes enriqueta itus without complication, unspecified whether shelter insulin use (CMS/[facility]) (Primary Dx); Pain due to onychomycosis of toenails of both feet Start: 12-10-2023 End: 12-10-2023 ambulatory KENNEDY CAMARA Not Available Start: 12-03-2023 End: 12-03-2023 Office outpatient new 45 minutes Veda Rome DO Work Phone: [facility] 230 Comment on above: Type 2 diabetes enriqueta 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, without long-term current use of insulin (HCC) (CMS/[facility]) (Primary Dx); Type 2 diabetes mellitus with hyperglycemia, without long-term current use of insulin (CMS/[facility]) Start: 12-03-2023 End: 12-03-2023 ambulatory VEDA ROME Not Available Start: 12-02-2023 End: 12-02-2023 Telephone encounter Veda Rome DO Work Phone: [facility] 230 Start: 12-01-2023 Non-patient / Non-visit [facility] Start: 10-16-2023 End: 10-16-2023 ambulatory JR Hugo Moser Work Phone: [facility] Work Phone: Start: 10-16-2023 End: 10-16-2023 Patient encounter procedure JR Hugo Moser Work Phone: [facility]-Pacemaker Check Start: 07-24-2023 End: 07-24-2023 Office outpatient visit 25 minutes Henrry Issa MD Work Phone: [facility] Comment on above: Non-ischemic cardiom yopathy (Multi) (Primary Dx); AV block, Mobitz II; Pacemaker; Mixed hyperlipidemia; BMI 30.0-30.9,adult Start: 04-15-2023 End: 04-15-2023 ambulatory JR Hugo Moser Work Phone: [facility] Work Phone: Start: 04-15-2023 End: 04-15-2023 Patient encounter procedure JR Hugo Moser Work Phone: [facility]-Pacemaker Check Start: 04-08-2023 End: 04-08-2023 Office outpatient new 45 minutes Negro BROOKS Work Phone: [facility] Comment on above: Acute pain of right shoulder; Rotator cuff arthropathy, right; Arthritis of right acromioclavicular joint Start: 01-14-2023 End: 01-14-2023 Office outpatient visit 25 minutes Henrry Issa MD Work Phone: [facility] Comment on above: AV block, Mobitz II; Pacemaker; Obesity (BMI 30.0-34.9) Start: 01-08-2023 End: 01-08-2023 ambulatory JR Hugo Moser Work Phone: [facility] Work Phone: Start: 01-08-2023 End: 01-08-2023 Patient encounter procedure JR Hugo Moser Work Phone: [facility] Work Phone: Start: 12-28-2022 End: 12-31-2022 Evaluation and management of inpatient JR Hugo Moser Work Phone: [facility] Work Phone: Start: 05-19-2022 End: 05-20-[address] HUGO MOSER Facility:[facility] Start: 01-22-2022 End: 01-23-[address] HUGO MOSER Facility:[facility] Start: 10-09-2021 Encounter for katheryn l adult medical examination without abnormal findings DR HUGO MOSER [facility] Start: 10-08-2021 End: 10-09-[address] HUGO MOSER Facility:[facility] Start: 10-08-2021 End: 10-09-2021 Encounter for general adult medical examination without abnormal findings DR HUGO MOSER Facility:[facility] Procedures Date Procedure Procedure Detail Performing Clinician Start: 10-14-2024 Hemoglobin glycosylated a1c Veda Arevalo Petsandraick DO Work Phone: Start: 07-19-2024 Hemoglobin glycosylated a1c Veda Arevalo Petsandraick DO Work Phone: Start: 04-18-2024 Hemoglobin glycosylated a1c Veda Arevalo Petznick DO Work Phone: Start: 03-09-2024 Ecg routine ecg w/le ast 12 lds w/i&r Stephanie Steward MD Work Phone: Start: 01-18-2024 Hemoglobin glycosylated a1c Veda Arevalo Petgenaro DO Work Phone: Start: 04-15-2023 Plain chest X-ray JR yeimy Ciro Work Phone: Start: 04-08-2023 End: 04-08-2023 Arthrocentesis aspir&/inj major jt/bursa w/o Negro BROOKS Work Phone: Start: 01-08-2023 Plain chest X-ray JR yeimymolina Moser Work Phone: Start: 12-31-2022 Plain chest X-ray JR Haven yeimymolina Moser Work Phone: Start: 12-30-2022 Plain chest X-ray JR yeimy Ciro Work Phone: Start: 12-30-2022 Implantation of card iac pacemaker JR Arias Ciro Work Phone: Plan of Treatment Date Care Activity Detail Author Start: 06-20-2025 End: 06-20-2025 Patient encounter procedure 06/20/2025 11:10 AM EDT Office Visit [facility] [address] [phone] Stephanie Steward MD [facility] [facility] [place] [address] [facility] Start: 01-13-2025 End: 01-13-2025 Patient encounter procedure 01/13/2025 8:45 AM EST [facility] [address] [place] [phone] Veda Rome DO [address] [place] [address] [facility] 230 Start: 11-09-2024 End: 11-09-2025 Alanine aminotransferase [Enzymatic activity/volume] in Serum or Plasma by With P-5'-P Alanine Aminotransferase Lab Routine Mixed hyperlipidemia Expected: 11/09/2024 (Approximate), Expires: 11/09/2025 [facility] Service Area Work Phone: Comment on above: Expected: 11/09/2024 (Approximate), Expi res: 11/09/2025 Start: 11-09-2024 End: 11-09-2025 Basic metabolic 2000 panel - Serum or Plasma Basic Metabolic Panel Lab Routine History of cardiomyopathy Expected: 11/09/2024 (Approximate), Expires: 11/09/2025 [facility] Work Phone: Comment on above: Expected: 11/09/2024 (Approximate), Expi res: 11/09/2025 Start: 11-09-2024 End: 11-09-2025 CBC panel - Blood by Automated count CBC Lab Routine History of cardiomyopathy Expected: 11/09/2024 (Approximate), Expires: 11/09/2025 [facility] Work Phone: Comment on above: Expected: 11/09/2024 (Approximate), Expi res: 11/09/2025 Start: 11-09-2024 End: 11-09-2025 Lipid 1996 panel - Serum or Plasma Lipid Panel Lab Routine Mixed hyperlipidemia Expected: 11/09/2024 (Approximate), Expires: 11/09/2025 [facility] Work Phone: Comment on above: Expected: 11/09/2024 (Approximate), Expi res: 11/09/2025 Start: 11-09-2024 End: 11-09-2024 Patient encounter procedure 11/09/2024 11:00 AM EDT Office Visit [facility] [address] [facility] [address] [place] [phone] Stephanie Steward MD [address] [facility] [address] [place] [address] [facility] Start: 10-31-2024 COVID-19 Vaccine ( season) COVID-19 Vaccine ( season) [facility] Start: 10-31-2024 [facility] Start: 10-14-2024 End: 10-14-2024 Patient encounter procedure 10/14/2024 9:45 AM EDT Office Visit [facility] [address] [place] [phone] Veda Rome, DO [address] [place], [place] [id number] [facility] 230 Start: 07-19-2024 End: 07-19-2024 Patient encounter procedure [facility] 230 Comment on above: Type 2 diabetes mellitus with stage 3a c hronic kidney disease, without long-term current use of insulin (HCC) ([facility]) Start: 04-18-2024 End: 04-18-2024 Patient encounter procedure 04/18/2024 1:00 PM EST Office Visit [facility] [address] [place] [address] Veda Rome, DO [address] [place], [place] [phone] [facility] 230 Start: 03-09-2024 End: 03-09-2024 Patient encounter procedure 03/09/2024 10:50 AM EST Office Visit [facility] [address] [facility] [address] [place] [phone] Stephanie Steward MD [address] [facility] [address] [place] [address] [facility] Start: 02-17-2024 End: 02-17-2024 Patient encounter procedure [facility] Comment on above: Arrived Start: 01-15-2024 End: 01-15-2024 Patient encounter procedure 01/15/2024 2:00 PM EST Office Visit [facility] [address] [place] [address] Veda Rome, DO [address] [place] [address] [facility] 230 Start: 12-10-2023 End: 12-10-2023 Patient encounter procedure [facility] Comment on above: Type 2 diabetes mellitus without complic ation, unspecified whether shelter insulin use ([facility]) (Primary Dx); Pain due to onychomycosis of toenails of both feet Start: 12-03-2023 End: 12-03-2023 Patient encounter procedure 12/03/2023 2:00 PM EDT Office Visit [facility] [address] [place] [address] Veda Rome, DO [address] [place] [address] [facility] 230 Start: 11-01-2023 COVID-19 Vaccine ( season) COVID-19 Vaccine ( season) [facility] Start: 11-01-2023 Influenza vaccination [facility] Start: 07-24-2023 End: 07-24-2023 Patient encounter procedure 07/24/2023 1:40 PM EDT Office Visit [facility] [address] [facility] [address] [place] [phone] Henrry Issa MD [address] [place] [address] [facility] Start: 05-11-2023 End: 05-11-2023 Patient encounter procedure 05/11/2023 10:45 AM EDT Office Visit [facility] [address] [place] [address] Jr. Gini Cárdenas, DO [address] [place] [address] [facility] Start: 12-31-[address] [facility] Start: 12-30-[address] [facility] Start: 12-28-2022 Insertion of Pacemaker Lead into Right Atrium, Percutaneous Approach Insertion of Pacemaker Lead into Right Atrium, Percutaneous Approach [facility] Start: 12-28-2022 Insertion of Pacemaker Lead into Right Ventricle, Percutaneous Approach Insertion of Pacemaker Lead into Right Ventricle, Percutaneous Approach [facility] Start: 12-28-2022 Insertion of Pacemaker, Dual Chamber into Chest Subcutaneous Tissue and Fascia, Open Approach Insertion of Pacemaker, Dual Chamber into Chest Subcutaneous Tissue and Fascia, Open Approach [facility] Start: 12-28-[address] [facility] Start: 12-28-[address] [facility] Start: 10-31-2022 COVID-19 Vaccine ( season) COVID-19 Vaccine ( season) [facility] Start: 10-31-2022 Influenza vaccination Influenza Vaccine (#1) [facility] Start: 02-05-2022 COVID-19 Vaccine (4 - Moderna series) COVID-19 Vaccine (4 - Moderna series) [facility] Start: 05-18-2019 Pneumococcal vaccination Pneumococcal Vaccine (2 of 2 - PCV) [facility] Start: 05-18-2019 Pneumococcal Vaccine: 65+ Years (2 - PCV) Pneumococcal Vaccine: 65+ Years (2 - PCV) [facility] Start: 05-18-2019 Pneumococcal Vaccine: 65+ Years (2 of 2 - PCV) Pneumococcal Vaccine: 65+ Years (2 of 2 - PCV) [facility] Start: 08-18-2014 RSV High Risk: (Elderly (60+) or Population) (1 - 1-dose 75+ series) RSV High Risk: (Elderly (60+) or Population) (1 - 1-dose 75+ series) [facility] Start: 1999 RSV patients and/or patients aged 60+ years (1 - 1-dose 60+ series) RSV patients and/or patients aged 60+ years (1 - 1-dose 60+ series) [facility] Start: 08-18-1989 Zoster Vaccines (1 of 2) Zoster Vaccines (1 of 2) [facility] Start: 08-18-1961 DTaP/Tdap/Td Vaccines (1 - Tdap) DTaP/Tdap/Td Vaccines (1 - Tdap) [facility] Start: 08-18-1958 Urine screening for protein Diabetes: Urine Protein Screening [facility] Start: 08-18-1949 Diabetic foot examination Diabetes: Foot Exam [facility] Start: 08-18-1949 Glaucoma screening Diabetes: Retinopathy Screening [facility] Start: 1939 Hemoglobin A1c measurement Diabetes: Hemoglobin A1C [facility] Start: 1939 Lipid panel Lipid Panel [facility] Start: 1939 Medicare Annual Wellness Visit Medicare Annual Wellness Visit (AWV) [facility] Start: 1939 Urine screening for protein Diabetes: Urine Protein Screening [facility] Patient Education Clindamycin (Systemic) [facility] Work Phone: Patient referral [facility] Work Phone: XR Shoulder - right 2 Views XR shoulder 2+ views right Imaging Routine Acute pain of right shoulder 04/08/2023 1:21 PM EST [facility] Work Phone: Immunizations Immunization Date Immunization Notes Care Provider Francis covington 12-11-2021 Moderna COVID-19 vaccine, bivalent, blue cap/goff label *Check age/dose* Henrry Issa MD Work Phone: [facility] 01-31-2021 influenza, injectabl e, quadrivalent, preservative free Henrry Issa MD Work Phone: [facility] Work Phone: 01-31-2021 influenza virus vacc ine, unspecified formulation Henrry Issa MD Work Phone: [facility] Work Phone: 05-17-2018 influenza, injectabl e, quadrivalent, preservative free Henrry Issa MD Work Phone: [facility] Work Phone: 05-17-2018 pneumococcal polysaccharide vaccine, 23 valent Henrry Issa MD Work Phone: [facility] Work Phone: Payers Date Payer Category Payer Self-pay 2023 Private Health Insurance [employer] Me mber Subscriber Plan / Payer (Effective 2023-Present) Name: Emmanuel Jiménez Relation to Subscriber: Self Name: Emmanuel Jiménez Payer ID: Not on file Group ID: Not on file Type: Not on file Address: [facility] [id number] [place] [id number] 2022 Medicare supplementa l policy (as second payer) [employer] [id number] 2022 Unknown [id number]. [id number] 2004 Medicare [id number]. [id number] 1959 Medicare [id number] 1959 Unknown [id number] 1939 Unknown [id number] [id number]. 2.593 1939 Unknown [id number] 2.16.840.1.876873.3.579. 2.593 1939 Unknown [id number] 2.16.840.1.600090.3.579. 2.593 1939 Unknown [id number] 2.16.840.1.497471.3.579. 2.1259 1939 Unknown [id number] 2.16.840.1.977938.3.579. 2.1259 1939 Unknown [id number] 2.16.840.1.440484.3.579. 2.1259 1939 Unknown [id number] 2.16.840.1.203481.3.579. 2.1259 1939 Unknown [id number] 2.16.840.1.442927.3.579. 2.1259 1939 Unknown [id number] 2.16.840.1.915960.3.579. 2.1259 1939 Unknown [id number] 2.16.840.1.918745.3.579. 2.1259 1939 Unknown [id number] 2.16.840.1.671586.3.579. 2.1244 Unknown [id number] 2.16.840.1.580824.3.579. 2.531 Unknown [id number] 2.16.840.1.627991.3.579. 2.531 Unknown [id number] 2.16.840.1.382427.3.579. 2.531 Unknown [id number] [id number]. 2.531 Social History Date Type Detail Facility Start: 12-30-2022 End: 01-14-2023 Tobacco smoking status NHIS Never smoked tobacco (finding) [facility] Start: 1940 Sex Assigned At Male [facility] Start: 01-14-2023 End: 04-08-2023 Tobacco use and exposure Smokeless tobacco non-user [facility] Work Phone: Start: 01-14-2023 End: 11-09-2024 Alcohol intake Lifetime non-drinker (finding) [facility] Work Phone: Start: 01-14-2023 End: 03-09-2024 History of Social function [facility] Work Phone: Start: 01-14-2023 End: 03-09-2024 Tobacco use panel [facility] Work Phone: Start: 1940 Sex Assigned At Not on file [facility] Work Phone: Start: 01-04-2023 End: 03-09-2024 Exposure to SARS-CoV-2 (event) Not sure [facility] Start: 04-08-2023 End: 12-10-2023 Alcohol intake Current drinker of alcohol (finding) [facility] Start: 01-19-2024 End: 04-16-2024 Sex Male (finding) [facility] Start: 01-18-2024 End: 10-14-2024 Alcoholic beverage intake Ex-drinker (finding) [facility] How often to you hav e a drink containing alcohol? Never [facility] Start: 12-31-2022 How many standard drinks containing alcohol do you have on a typical day? Patient does not drink [facility] Medical Equipment Procedure Code Equipment Code Equipment Origin al Text Equipment Identifier Dates Insertion, pacemaker Endocardial pacing lead [id number] FDA Start: 12-30-2022 Insertion, pacemaker Endocardial pacing lead [id number] FDA Start: 12-30-2022 Insertion, pacemaker Dual-chamber implantable pacemaker, rate-responsive ()[id number] FDA Start: 12-30-2022 1 each by In Vit ro route See administration instructions Check bid [id number] Start: 05-19-2024 1 each by In Vit ro route 2 (two) times a day [id number] Start: 08-11-2024 Goals Date Patient Goal Desired Activity /State Functional Status Date Assessment Result Facility 10-14-2024 Patient Health Quest ionnaire 2 item (PHQ-2) [Reported] [facility] 07-19-2024 Patient Health Quest ionnaire 2 item (PHQ-2) [Reported] [facility] 12-31-2022 Functional status Patient at Baseline [facility] Work Phone: Mental Status Date Assessment Result Facility 12-31-2022 Cognitive function Cognitive Sta tus Patient at Baseline [facility] Work Phone: Clinical Notes 12-28-2022 to 11-09-2024 Stephanie Steward MD - 11/09/2024 11:00 AM EDTPatient InstructionsAttachmentsVeda Rome, DO - 10/14/2024 9:52 AM EDTAambar Rome, DO - 10/14/2024 9:45 AM EDT Note Date & Type Note Facility 11-09-2024 History of Present illness Narrative HPI Patient is in the office for follow-up for high-grade AV block requiring pacemaker implantation who has hyperlipidemia and diabetes and recently pacemaker analysis revealed 10% atrial fibrillation load which was totally asymptomatic for which Eliquis 5 mg twice daily was initiated. Today the patient is feeling well except for occasional dizziness, he has normal blood pressure and normal heart rate. He has had no recent falls. No orthopnea PND and no chest pain. Echocardiogram from a year ago revealed normal ejection fraction with mild tricuspid regurgitation without pulmonary hypertension. Assessment/recommendations: [id number] AV block status post permanent pacemaker 2022 with no complications, pacemaker analysis from recent assessment revealed 10% atrial fibrillation for which we initiated therapy with Eliquis 5 mg twice daily. Since he is asymptomatic no rhythm control policy will be adopted. 2-paroxysmal atrial fibrillation, picked up on his pacemaker analysis with no symptoms. Rate is controlled. Eliquis was initiated, the rational for that was explained to the patient 3-type 2 diabetes, the patient is compliant medical therapy and medical follow-up. He follows low-fat diet and low carbohydrate diet. More weight loss was encouraged. He maintains active lifestyle. 4-hyperlipidemia on high intensity statin and ezetimibe, he follows low-fat diet and lipid profile is ordered. 5-class I obesity,, encouraged patient for active lifestyle to bring his weight down further. 6-high risk medication with Eliquis, complications of bleeding were explained to the patient and avoiding for falls or injuries was emphasized. Will monitor CBC closely. The benefit of anticoagulation versus the potential risks were explained in detail to the patient, he agrees to proceed with our recommendations ROS Occasional dizziness Vitals: 11/09/24 1106 BP: 116/56 BP Location: Left arm Patient Position: Sitting Pulse: 68 Weight: 87.1 kg (192 lb) Height: 1.702 m (5' 7 ) [...] no known allergies. Current Medications Current Outpatient Medications Medication Instructions acarbose (PRECOSE) 100 mg, 3 times daily (morning, midday, late afternoon) apixaban (ELIQUIS) 5 mg, oral, 2 times daily ezetimibe (Zetia) 10 mg tablet 0.5 tablets, Daily finerenone (KERENDIA ORAL) 1 tablet, Daily insulin lispro protamin-lispro (HumaLOG Mix 75-25) 100 unit/mL (75-25) pen 30 units breakfast and 15 units dinner Jardiance 25 mg, Daily before breakfast metFORMIN (GLUCOPHAGE) 500 mg rosuvastatin (CRESTOR) 40 mg, Daily Assessment/Plan 1. Non-ischemic cardiomyopathy (Multi) 2. Mild tricuspid regurgitation Follow Up In Cardiology 3. AV block, Mobitz II 4. Pacemaker 5. Mixed hyperlipidemia 6. Diabetes mellitus type II, non insulin dependent (Multi) 7. Obesity (BMI 30.0-34.9) 8. Never smoked tobacco Scribe Attestation By signing my name below, I, Karuna Avalos LPN , Lois attest that this documentation has been prepared [...] discussion and plan. documented in this encounter [facility] Work Phone: 11-09-2024 Instructions Karuna Ashton LPN - 11/09/2024 11:00 AM EDT Please bring all medicines, vitamins, and herbal supplements with you when you come to the office. Prescriptions will not be filled unless you are compliant with your follow up appointments or have a follow up appointment scheduled as per instruction of your physician. Refills should be requested at the time of your visit. BMI was above normal measurement. Current weight: 87.1 kg (192 lb) Weight change since last visit (-) denotes wt loss 12 lbs Weight loss needed to achieve BMI 25: 32.7 Lbs Weight loss needed to achieve BMI 30: 0.9 Lbs Provided instructions on dietary changes Provided instructions on exercise. The following attachments cannot be sent through Care Everywhere.Heart-healthy diet ([place])documented in this encounter [facility] Work Phone: 10-14-2024 History of Present illness Narrative Associated Problem(s): Type 2 diabetes mell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, with long-term current use of insulin (HCC) During the appointment today all pertinent labs, [...] is making improvements and encouraged on this. , Discussed dietary changes at length. Encouraged to limit simple carbs and focus more on healthy protein/fat with all meals and snacks. They should also avoid any sugary drinks. , Instructions given today include: Insulin instructions and Dietary education. Will increase insulin mainly at breakfast to improve his afternoon readings. Images from the original note were not included. Emmanuel Jiménez is a 84 y.o. male presents with chief complaint of Diabetes HPI: Diabetes Mellitus Follow-up: Emmanuel Jiménez is here for follow-up evaluation of diabetes mellitus. The initial diagnosis of diabetes was made around 2018 Complications include: none Previously tried medications include: none He has been checking his blood glucose regularly. Bg running 120-150 in the am and 170-240 predinner Last A1c: 9.0 (07/19/24) Eye exam: 2023- Dr. Garrett/ Nicole Crum Current concerns include: Jardiance 1/2 a pill a day Bg levels: Have been improving. Was running in the 200-300s. On occasion even if he is eating right his reading is in the 200s. Diet: Trying to limit portions and carbs Drinks: Water, crystal light lemonade Exercise: walking 1 mile 5 days a week Hypoglycemia: none SUBJECTIVE: PROBLEM LIST SOCIAL ALLERGIES: Patient Active Problem List Diagnosis HTN (hypertension) Mixed hyperlipidemia Mobitz type II atrioventricular block Localized, primary osteoarthritis of hand DVT (deep venous thrombosis) (HCC) Non-ischemic cardiomyopathy (HCC) Pacemaker Type 2 diabetes mell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, with long-term current use of insulin (HCC) Social History Tobacco Use Smoking status: Never Smokeless tobacco: Never Substance Use Topics Alcohol use: Not Currently Drug use: Never No Known Allergies Synopsis [facility] 10/14/2024 09/27/2024 00:00 09/08/2024 00:00 Antidiabetic medications Acarbose 100 mg BID PO (100 MG TABS) Take 100 mg by mouth in the morning and 100 mg before bedtime. Take 100 mg by mouth in the morning and 100 mg before bedtime. Empagliflozin 25 mg q AM PO 25 mg q AM PO 25 mg q AM PO Insulin Lispro Prot & Lispro 14 units breakfast and 14 units dinner ((75-25) 100 UNIT/ML SUPN) -Discontinued (Dose adjustm) Insulin Lispro Prot & Lispro 18 units breakfast and 14 units dinner ((75-25) 100 UNIT/ML SUPN)-Discontinued (Dose adjustm) 18 units breakfast and 14 units dinner ((75-25) 100 UNIT/ML SUPN) Insulin Lispro Prot & Lispro 24 units breakfast and 14 units dinner ((75-25) 100 UNIT/ML SUPN)-Discontinued (Dose adjustm) 24 units breakfast and 14 units dinner ((75-25) 100 UNIT/ML SUPN) Insulin Lispro Prot & Lispro 30 units breakfast and 15 units dinner ((75-25) 100 UNIT/ML SUPN) metFORMIN HCl 1,000 mg BID with meals PO 1,000 mg BID with meals PO 1,000 mg BID with meals PO Labs [facility] HEMOGLOBIN A1C/HEMOGLOBIN.TOTAL:MFR:PT:BLD: QN: 8.7 Outpatient prescription Medication marked as long-term Patient-reported The ASCVD Risk score (Caitie GARZON, et al., 2019) failed to calculate for the following reasons: The 2019 ASCVD risk score is only valid for ages 40 to 79 REVIEW OF SYMPTOMS: Review of Systems Constitutional: Negative for appetite change, fatigue and unexpected weight change. Eyes: Negative for visual disturbance. Respiratory: Negative for cough, shortness of breath and wheezing. Cardiovascular: Negative for chest pain, palpitations and leg swelling. Neurological: Negative for numbness. Endocrine: Negative for polydipsia, polyphagia and polyuria. OBJECTIVE: 10/14/2024 9:30 AM 07/19/2024 9:23 AM 04/18/2024 12:54 PM Vitals BMI 29.66 kg/m2 28.35 kg/m2 27.88 kg/m2 Systolic 108 112 126 Diastolic 78 64 78 Heart Rate 84 82 76 Temp 96.3 F 98.2 F 98.2 F Height (in) 5' 7 5' 7 5' 7 Weight (lb) 189.4 181 178 Visit Report Report Report Report Physical Exam [...] mell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, with long-term current use of insulin (HCC) During the appointment today all pertinent labs, [...] is making improvements and encouraged on this. , Discussed dietary changes at length. Encouraged to limit simple carbs and focus more on healthy protein/fat with all meals and snacks. They should also avoid any sugary drinks. , Instructions given today include: Insulin instructions and Dietary education. Will increase insulin mainly at breakfast to improve his afternoon readings. Relevant Medications insulin lispro protamine-insulin lispro (HumaLOG MIX 75/25 KWIKPEN) (75-25) 100 UNIT/ML injection Other Relevant Orders POCT glycosylated hemoglobin (Hb A1C) docked device (Completed) Follow up in about 3 months (around 01/14/2025) for Recheck. Patient's Medications New Prescriptions No medications on file Previous Medications ACARBOSE (PRECOSE) 100 MG TABLET Take 100 mg by mouth in the morning and 100 mg before bedtime. DOCUSATE CALCIUM (STOOL SOFTENER PO) Take by mouth EMPAGLIFLOZIN (JARDIANCE) 25 MG Take 1 tablet (25 mg) by mouth in the morning. EZETIMIBE (ZETIA) 10 MG TABLET Take 5 mg by mouth in the morning. FAMOTIDINE (PEPCID) 40 MG TABLET Take 40 mg by mouth at bedtime FINERENONE (KERENDIA PO) Take 20 mg by mouth GLUCOSE BLOOD (BLOOD GLUCOSE TEST STRIPS 333) STRIP 1 each by In Vitro route 2 (two) times a day METFORMIN (GLUCOPHAGE) 500 MG TABLET Take 2 tablets (1,000 mg) by mouth in the morning and 2 tablets (1,000 mg) in the evening. Take with meals. PEN NEEDLE 33G X 4 MM MISC Injections subcutaneous daily ROSUVASTATIN (CRESTOR) 40 MG TABLET Take 40 mg by mouth in the morning. Modified Medications Modified Medication Previous Medication INSULIN LISPRO PROTAMINE-INSULIN LISPRO (HUMALOG MIX 75/25 KWIKPEN) (75-25) 100 UNIT/ML INJECTION insulin lispro protamine-insulin lispro (HumaLOG MIX 75/25 KWIKPEN) (75-25) 100 UNIT/ML injection 30 units breakfast and 15 units dinner 24 units breakfast and 14 units dinner Discontinued Medications No medications on file I have reviewed and reconciled the history and medication list with the patient today. documented in this encounter [facility] 10-14-2024 Evaluation note Diagnosis Type 2 diabetes mell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, without long-term current use of insulin (HCC) Type 2 diabetes mell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, with long-term current use of insulin (HCC)- Primary Type 2 diabetes mell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, without long-term current use of insulin (HCC) Type 2 diabetes mell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, with long-term current use of insulin (HCC) [facility] [id number] Telephone encounter Note* Telephone Encounter - Elba Soaresbi - 08/02/2024 11:02 AM EDT Since starting the new insulin around 07/22 his bg has been running higher than normal. They have consistently been over 100 in the morning (186,177,180----before new insulin they were usually around 100) and at night night they have ranged from 222,183, 228. He hasn't changed his diet and would like to know what he should do. [facility] [id number] Miscellaneous Notes* Telephone Encounter - Elba Soaresbi - 08/02/2024 11:02 AM EDT Since starting the new insulin around 07/22 his bg has been running higher than normal. They have consistently been over 100 in the morning (186,177,180----before new insulin they were usually around 100) and at night night they have ranged from 222,183, 228. He hasn't changed his diet and would like to know what he should do. documented in this encounterSt. [facility] [id number] History of Present illness Narrative* Veda Rome, DO - 07/19/2024 12:17 PM EDTAssociated Problem(s): Type 2 diabetes mell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, with long-term current use of insulin ([facility]) ([facility]) During the appointment today all pertinent labs, imaging, health maintenance, and glucose readings were reviewed. Encouraged to check blood glucose throughout the day with some fasting and some PP readings. They are to bring their glucose meter/cgm in to all appointments. All of the patients questions, treatment options, and current care plan and goals were discussed. Acopy of this along with pertinent instructions were given to the patient at the end of the appointment. The patient voices understanding of all of this and is to call in between appointments if they have any problems or questions. Emmanuel Jiménez blood sugars are worsening. , Instructed on the importance of taking insulin before eating. If it has been more than 30-45 min since eating they should not give the meal dose but should just give a correction insulin dose. , Instructions given today include: Insulin instructions and Dietary education. I don't think his pancreas is making enough insulin for his meals. Suspect bg rising postprandially. Will stop tresiba and start premixed insulin. He is to check his bg before breakfast and dinner. * Veda Rome DO - 07/19/2024 9:30 AM EDT Images from the original note were not included. Emmanuel Jiménez is a 83 y.o. male presents with chief complaint of Diabetes HPI: Diabetes Mellitus Follow-up: Emmanuel Jiménez is here for follow-up evaluation of diabetes mellitus. The initial diagnosis of diabetes was made around 2018 Complications include: none Previously tried medications include: none He has been checking his blood glucose regularly. Bg running 130-180 in the am Last A1c: 8.1 (04/18/24) Eye exam: 2023- Dr. Garrett/ Nicole Crum Current concerns include: Jardiance 1/2 a pill a day Bg levels: similar to last visit. Occasional readings in the 190's which he feels is due to what heate. Diet: Trying to limit portions and carbs Drinks: Water, crystal light lemonade Exercise: walking 1 mile 5 days a week Hypoglycemia: none Breakfast: toast and egg, cottage cheese with fruit Lunch: deli sandwich with wheat bread Dinner: harley benitez SUBJECTIVE: PROBLEM LIST SOCIAL ALLERGIES: Patient Active Problem List Diagnosis HTN (hypertension) (CMS/HCC) Mixed hyperlipidemia (CMS/HCC) Mobitz type II atrioventricular block Localized, primary osteoarthritis of hand DVT (deep venous thrombosis) (CMS/HCC) Non-ischemic cardiomyopathy (CMS/HCC) Pacemaker Type 2 diabetes mell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, with long-term current use of insulin (HCC) (CMS/HCC) Social History Tobacco Use Smoking status: Never Smokeless tobacco: Never Substance Use Topics Alcohol use: Not Currently Drug use: Never No Known Allergies Synopsis [employer] 07/19/2024 06/16/2024 00:00 Antidiabetic medications Acarbose 100 mg BID PO (100 MG TABS) Take 100 mg by mouth in the morning and 100 mg before bedtime. Empagliflozin 25 mg q AM PO 25 mg q AM PO Insulin Degludec 12 Units Daily SC-Discontinued 12 Units Daily SC Insulin Lispro Prot & Lispro 10 units breakfast and 10 units dinner ((75-25) 100 UNIT/ML SUPN) metFORMIN HCl 1,000 mg BID with meals PO 1,000 mg BID with meals PO Labs [facility] HEMOGLOBIN A1C/HEMOGLOBIN.TOTAL:MFR:PT:BLD:QN: 9.0 Outpatient prescription Medication marked as long-term Patient-reported The ASCVD Risk score (Caitie GARZON, et al., 2019) failed to calculate for the following reasons: The 2019 ASCVD risk score is only valid for ages 40 to 79 REVIEW OF SYMPTOMS: Review of Systems Constitutional: Negative for appetite change, fatigue and unexpected weight change. Eyes: Negative for visual disturbance. Respiratory: Negative for cough, shortness of breath and wheezing. Cardiovascular: Negative for chest pain, palpitations and leg swelling. Neurological: Negative for numbness. Endocrine: Negative for polydipsia, polyphagia and polyuria. OBJECTIVE: 07/19/2024 9:23 AM 04/18/2024 12:54 PM 01/18/2024 9:01 AM Vitals BMI 28.35 kg/m2 27.88 kg/m2 28.19 kg/m2 Systolic 112 126 110 Diastolic 64 78 66 Heart Rate 82 76 92 Temp 98.2 F 98.2 F 98 F Height (in) 5' 7 5' 7 5' 7 Weight (lb) 181 178 180 Visit Report Report Report Report Physical Exam Constitutional: General: He is not in acute distress. Appearance: Normal appearance. Cardiovascular: Rate and Rhythm: Normal rate and regular rhythm. Heart sounds: Murmur heard. No friction rub. No gallop. Pulmonary: Breath sounds: Normal breath sounds. No wheezing, rhonchi or rales. Musculoskeletal: General: No swelling. Neurological: Mental Status: He is alert. ASSESSMENT AND PLAN: Problem List Items Addressed This Visit Type 2 diabetes mell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, with long-term current use of insulin (HCC) ([facility]) - Primary During the appointment today all pertinent labs, imaging, health maintenance, and glucose readings were reviewed. Encouraged to check blood glucose throughout the day with some fasting and some PP readings. They are to bring their glucose meter/cgm in to all appointments. All of the patients questions, treatment options, and current care plan and goals were discussed. Acopy of this along with pertinent instructions were given to the patient at the end of the appointment. The patient voices understanding of all of this and is to call in between appointments if they have any problems or questions. Emmanuel Norcross blood sugars are worsening. , Instructed on the importance of taking insulin before eating. If it has been more than 30-45 min since eating they should not give the meal dose but should just give a correction insulin dose. , Instructions given today include: Insulin instructions and Dietary education. I don't think his pancreas is making enough insulin for his meals. Suspect bg rising postprandially. Will stop tresiba and start premixed insulin. He is to check his bg before breakfast and dinner. Relevant Medications insulin lispro protamine-insulin lispro (HumaLOG MIX 75/25 KWIKPEN) (75-25) 100 UNIT/ML injection Follow up in about 3 months (around 10/19/2024) for Recheck. Patient's Medications New Prescriptions INSULIN LISPRO PROTAMINE-INSULIN LISPRO (HUMALOG MIX 75/25 KWIKPEN) (75-25) 100 UNIT/ML INJECTION 10 units breakfast and 10 units dinner Previous Medications ACARBOSE (PRECOSE) 100 MG TABLET Take 100 mg by mouth in the morning and 100 mg before bedtime. DOCUSATE CALCIUM (STOOL SOFTENER PO) Take by mouth EMPAGLIFLOZIN (JARDIANCE) 25 MG Take 1 tablet (25 mg) by mouth in the morning. EZETIMIBE (ZETIA) 10 MG TABLET Take 5 mg by mouth in the morning. FINERENONE (KERENDIA PO) Take 20 mg by mouth GLUCOSE BLOOD (BLOOD GLUCOSE TEST STRIPS 333) STRIP 1 each by In Vitro route See administration instructions Check bid METFORMIN (GLUCOPHAGE) 500 MG TABLET Take 2 tablets (1,000 mg) by mouth in the morning and 2 tablets (1,000 mg) in the evening. Take with meals. PEN NEEDLE 33G X 4 MM MISC Injections subcutaneous daily ROSUVASTATIN (CRESTOR) 40 MG TABLET Take 40 mg by mouth in the morning. Modified Medications No medications on file Discontinued Medications INSULIN DEGLUDEC (TRESIBA FLEXTOUCH) 100 UNIT/ML INJECTION Inject 12 Units under the skin Daily I have reviewed and reconciled the history and medication list with the patient today. documented in this encounterSt. [facility] [id number] Evaluation note* Diagnosis Type 2 diabetes mell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, without long-term current use of insulin (HCC) ([facility]/HCC) Type 2 diabetes mell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, with long-term current use of insulin (HCC) ([facility]/HCC)- Primary Type 2 diabetes mell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, without long-term current use of insulin (HCC) ([facility]) [facility] [id number] Telephone encounter Note* Telephone Encounter - Elba Platt - 07/18/2024 2:54 PM EDT P/c appointment reminder. Pt confirmed [facility] [id number] Miscellaneous Notes* Telephone Encounter - Elba Platt - 07/18/2024 2:54 PM EDT P/c appointment reminder. Pt confirmed documented in this encounterSt. [facility] [id number] History of Present illness Narrative* Veda Rome DO - 04/18/2024 2:07 PM ESTAssociated Problem(s): Type 2 diabetes mell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, without long-term current use of insulin (HCC) ([facility]) During the appointment today all pertinent labs, imaging, health maintenance, and glucose readings were reviewed. Encouraged to check blood glucose throughout the day with some fasting and some PP readings. They are to bring their glucose meter/cgm in to all appointments. All of the patients questions, treatment options, and current care plan and goals were discussed. Acopy of this along with pertinent instructions were given to the patient at the end of the appointment. The patient voices understanding of all of this and is to call in between appointments if they have any problems or questions. Emmanuel Jessy is making improvements and encouraged on this. Will stop precose as I doubt this is doing much for him. Would not recommend using lantus instead of tresiba unless he splits up the lantus and does 6 units bid on this. He doesn't want to do this. * Veda Rome DO - 04/18/2024 1:00 PM EST Images from the original note were not [...] able to use. She is in a [facility] facility right now. He is asking if he could use it. SUBJECTIVE: PROBLEM LIST SOCIAL ALLERGIES: Patient Active Problem List Diagnosis HTN (hypertension) (CMS/HCC) Mixed hyperlipidemia (CMS/HCC) Mobitz type II atrioventricular block Localized, primary osteoarthritis of hand DVT (deep venous thrombosis) (CMS/HCC) Non-ischemic cardiomyopathy (CMS/HCC) Pacemaker Type 2 diabetes mell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, without long-term current use of insulin (HCC) ([facility]) Social History Tobacco Use Smoking [...] 1,000 mg BID with meals PO Labs [facility] HEMO[facility] A1C/HEMOGLOBIN.TOTAL:MFR:PT:BLD:QN: 8.1 Outpatient prescription Medication marked as long-term [...] without long-term current use of insulin (HCC) ([facility]) During the appointment today all pertinent labs, imaging, health maintenance, and glucose readings were reviewed. Encouraged to check blood glucose throughout the day with some fasting and some PP readings. They are to bring their glucose meter/cgm in to all appointments. All of the patients questions, treatment options, and current care plan and goals were discussed. Acopy of this along with pertinent instructions were [...] with the patient today. documented in this encounterSt. [facility] [id number] Telephone encounter Note* Telephone Encounter - Elba Platt - 04/15/2024 1:06 PM EST LVM appointment reminder [facility] [id number] Miscellaneous Notes* Telephone Encounter - Elba Platt - 04/15/2024 1:06 PM EST LVM appointment reminder documented in this encounterSt. [facility] [id number] History of Present illness Narrative* Stephanie Steward MD - 03/09/2024 3:20 PM EST Karen Jiménez is a 83 y.o. male Chief Complaint Follow-up HPI 83-year-old white male who has previously followed with Dr. Issa. He has history of complete heart block status post pacemaker insertion 2022. He has diabetes type 2 managed by his PCP Dr. Abarca also has hyperlipidemia on statin therapy. His [...] edema. His labs have been followed by h is PCP. Assessment/recommendations: [id number] AV block status post permanent pacemaker 2022 [...] my direction and personally dictated by me. Ihave reviewed the chart and agree that the record accurately reflects my personal performance of the history, physical exam, discussion and plan. documented in this [facility] Work Phone: 1(209) 233-350401-08-2025 Instructions* Patient Instructions* Ashtyn Rendon RN - 03/09/2024 3:20 PM [...] follow up per routine [facility] Phone: 1(449) 627-186712-18-2024 History of Present illness Narrative* Jr. Gini Cárdenas, - 02/17/2024 10:00 AM EST Images from the original note were not included. HISTORY OF PRESENT ILLNESS: EST PT Emmaunel Jiménez is an 83 y.o. @ male. [...] ANTERIOR IN JOINT, STATES NOT BAD IT WAS.TAKING TYL PRN. DENIES N/T, SWELLING. ADMITS CRACKING. [...] for requiring urgent evaluation. documented in this encounterSt. [facility] [id number] History of Present illness Narrative* Veda Rome DO - 01/18/2024 12:37 PM ESTAssociated Problem(s): Type 2 diabetes mellitus with hyperglycemia, without long-term current use of insulin ([facility]) During the appointment today all pertinent labs, imaging, health maintenance, and glucose readings were reviewed. Encouraged to check blood glucose throughout the day with some fasting and some PP readings. They are to bring their glucose meter/cgm in to all appointments. All of the patients questions, treatment options, and current care plan and goals were discussed. Acopy of this along with pertinent instructions were [...] if the numbers are not coming down. * Veda Rome DO - 01/18/2024 9:15 AM EST Images from the original note were not [...] feet when he walks and is fatigue. Stateshe is very thirsty and drinks a lot [...] disease, without long-term current use of insulin ([facility]) (CMS/[facility]) Social History Tobacco Use Smoking [...] hyperglycemia, without long-term current use of insulin ([facility]) During the appointment today all pertinent labs, imaging, health maintenance, and glucose readings were reviewed. Encouraged to check blood glucose throughout the day with some fasting and some PP readings. They are to bring their glucose meter/cgm in to all appointments. All of the patients questions, treatment options, and current care plan and goals were discussed. Acopy of this along with pertinent instructions were [...] disease, without long-term current use of insulin ([facility]) ([facility]) Relevant Medications insulin glargine (Lantus [...] with the patient today. documented in this encounterSt. Louis [facility] [id number] Telephone encounter Note* Telephone Encounter - Clara Ramos LPN - 01/14/2024 10:[address] [facility] [id number] Miscellaneous Notes* Telephone Encounter - Clara Ramos LPN - 01/14/2024 10:19 AM EST noted * Telephone Encounter - Elba Platt - 01/14/2024 10:11 AM EST P/c to remind pt of appointment. Pt had to reschedule because his has testing all day tomorrow. Rescheduled for Thursday at 9:15. He voiced understanding documented in this encounterSt. Louis VA Medical [id number] Telephone encounter Note* Telephone Encounter - Elba Platt - 01/14/2024 10:11 AM EST P/c to remind pt of appointment. Pt had to reschedule because his has testing all day tomorrow. Rescheduled for Thursday at 9:15. He voiced understanding [facility] [id number] History of Present illness Narrative* Kennedy Camara DPM - 12/10/2023 1:40 PM EDT Patient: Emmanuel Jiménez : 1940 PCP: Hugo [...] of deep venous thrombosis Hyperlipemia (CMS/HCC) Hypertension (CMS/HCC) Medications: Current Outpatient Medications: empagliflozin (Jardiance) 25 [...] Negative palpable pedal pulses bilaterally NEURO: 5.07 [place] Claudia monofilament test intact to digits and forefoot bilaterally 125Hz tuning fork diminished to 1st MPJ bilaterally ORTHO: Positive pain on palpation to nails 1 through 10 ASSESSMENT 1. Type 2 diabetes mellitus without complication, unspecified whether oil heaterman insulin use ([facility]) 2. Pain due to onychomycosis of toenails of both feet PLAN Discussed proper foot care with patient today. Debride nails in length and thickness digits 1 through 10 Patient educated today on proper diabetic foot care including monitoring feet daily for any signs of infection openings in the skin or irregularities to both feet. Patient had a diabetic neurologicalexam today to both their feet and discussed proper shoe gear. Kennedy Camara DPM documented in this encounterSt. Louis VA Medical [id number] History of Present illness Narrative* Veda Rome, - 12/03/2023 4:02 PM EDTAssociated Problem(s): Type 2 diabetes mellitus with hyperglycemia, without long-term current use of insulin ([facility]) During the appointment today all pertinent labs, imaging, health maintenance, and glucose readings were reviewed. Encouraged to check blood glucose throughout the day with some fasting and some PP readings. They are to bring their glucose meter/cgm in to all appointments. All of the patients questions, treatment options, and current care plan and goals were discussed. Acopy of this along with pertinent instructions were [...] make sure he is drinking enough water. * Veda Rome DO - 12/03/2023 2:00 PM EDT Images from the original note were not [...] occasion (cinnamon toast crunch- low sugar) Lunch: Henderson (ham), fruit (peaches, pears, melon) Dinner: Varies- [...] hyperglycemia, without long-term current use of insulin ([facility]) HTN (hypertension) ([facility]) Mixed hyperlipidemia ([facility]) Mobitz type II atrioventricular block Localized, primary osteoarthritis of hand DVT (deep venous thrombosis) ([facility]) Non-ischemic cardiomyopathy ([facility]) Pacemaker Type 2 diabetes mell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, without long-term current use of insulin ([facility]) ([facility]) Social History Tobacco Use Smoking [...] hyperglycemia, without long-term current use of insulin ([facility]) During the appointment today all pertinent labs, imaging, health maintenance, and glucose readings were reviewed. Encouraged to check blood glucose throughout the day with some fasting and some PP readings. They are to bring their glucose meter/cgm in to all appointments. All of the patients questions, treatment options, and current care plan and goals were discussed. Acopy of this along with pertinent instructions were given to the patient at the end of the appointment. The patient voices understanding of all of this and is to call in between appointments if they have any problems or questions. Emmanuel Norcross blood sugars are worsening. , Discussed dietary [...] disease, without long-term current use of insulin ([facility]) ([facility]) - Primary Relevant Medications empagliflozin [...] with the patient today. documented in this [facility]10-02-2024 Telephone encounter Note* Telephone Encounter - Elba Giulia - 12/02/2023 12:50 PM EDT Pt's answered the phone. Reminded her of her 's appointment tomorrow with Dr. Mccollum. voiced understanding [facility] [id number] Miscellaneous Notes* Telephone Encounter - Elba Platt - 12/02/2023 12:50 PM EDT Pt's answered the phone. Reminded her of her 's appointment tomorrow with Dr. Mccollum. voiced understanding documented in this [facility]05-24-2024 History of Present illness Narrative* Henrry Issa MD - 07/24/2023 1:40 PM EDT Karen Jiménez is a 82 y.o. male Chief Complaint Follow-up HPI Review of Systems All other systems reviewed and are negative. Patient returns in follow-up of problems as noted. In the interim he has done well. From time to time he has orthostatic symptoms and because of this we checked orthostatic blood pressure and in facthe has a drop. Because of this we [...] are reviewed and found to be satisfactory. Managementof lipids as well as mitigating stroke risk are reviewed and in light of all the above I believe noother adjustments in therapy are necessary. I did [...] By signing my name below, I, Kaylynn MayesPatel Christensen LPNibmavis attest that this documentation has been prepared under the direction and in the presence of Roma Issa MD. Provider Attestation - Scribe documentation All medical record entries made by the Scribe were at my direction and personally dictated by me. Ihave reviewed the chart and agree that the record accurately reflects my personal performance of the history, physical exam, discussion and plan. documented in this encounterBl[facility] Work Phone: 1(781) 802-442005-24-2024 Instructions* Patient Instructions* Sal Henson MA - 07/24/2023 1:40 PM [...] time of your visit. documented in this encounterBlanchard Valley Health System Work Phone: 1(712) 374-548302-07-2024 History of Present illness Narrative* TODD Driver - 04/08/2023 1:30 PM ESTAssociated Order(s): L Inj/Asp: R subacromial bursa; M [...] . Pt given injection Right Shoulder SA spacewith 2ml of 2 % lidocaine (Code 80277 RT) Procedure, treatment alternatives, risks and benefits [...] Patient previously got 6 months relief with pastinjection in 2019. Patient like to keep surgery [...] urgent evaluation. TODD Driver documented [facility] this [facility]11-15-2023 History of Present illness Narrative* Henrry Issa MD - 01/14/2023 3:10 PM EST Karen Jiménez is a 82 y.o. male [...] 3. Obesity (BMI 30.0-34.9) documented in this [facility] Work Phone: 1(119) 694-982911-15-2023 Instructions* Patient Instructions* Lupe Burns LPN - 01/14/2023 3:10 PM [...] follow up per routine documented in this [facility] Work Phone: 1(146) 287-500411-01-2023 Progress note Author Henrry Issa [facility] December 31, 2022 10:33am Note Date/Time December 31, 2022 1 0:25am [facility] [address] [place] [address] Cardiology Progress Note Signed Patient: Emmanuel Jiménez MR#: [id number] : 1940 Acct:[id number] Age/Sex: 82 / M Adm Date: 3 Loc: Room: [address] [place] [address] Type: ADM IN Attending Dr: Katie Osborne [...] % (Auto) 61.2 Lymph % (Auto) 27.7 Emmons % (Auto) 8.9 Eos % (Auto) 1.6 Baso % (Auto) 0.6 Nucleat RBC Rel Count 0.0 Neut # (Auto) 4.1 Lymph # (Auto) 1.9 Emmons # (Auto) 0.6 Eos # (Auto) 0.1 Baso # (Auto) 0.0 PHA Creatinine Clear Sodium Potassium Chloride Carbon Dioxide Anion Gap BUN Creatinine Est GFR (CKD-EPI) Glucose POC Glucose 206 183 Calcium Magnesium 12/31/22 06:36 Corrected WBC Uncorrected WBC Count RBC Hgb Hct MCV MCH MCHC RDW Plt Count MPV Neut % (Auto) Lymph % (Auto) Emmons % (Auto) Eos % (Auto) Baso % (Auto) Nucleat RBC Rel Count Neut # (Auto) Lymph # (Auto) Emmons # (Auto) Eos # (Auto) Baso # [...] clinic as scheduled. Follow-up with his primary piecer Dr. Hugo Moser henceforth Documented By: Henrry Issa MD 1023 Signed By: <Electronically signed by MD Henrry Issa> 12/31/22 1033 [facility] Work Phone: 1(679) 983-543410-31-2023 Progress note Author Katie Osborne [facility] December 30, 2022 2:12pm Note Date/Time December 30, 2022 2 :12pm [facility] [address] [place] [address] Hospitalist Progress Note Signed Patient: Emmanuel Jiménez MR#: [id number] : 1940 Acct:[id number] Age/Sex: 82 / M Adm Date: 3 Loc: Room: [address] [place] [address] Type: ADM IN Attending Dr: Katie Osborne MD Copies to: ~ Date of Service: 12/30/2022 Subjective Subjective Narrative: Patient was seen and evaluated at bedside this morning. threat monitoring analyst was reviewed, patient continued to have heart [...] Plan: ? Patient's baseline is unknown, at [facility] his creatinine is 1.6, today here it is 1.4 ? Patient did receive atropine at [facility], his heart rate has been improved while [...] <Electronically signed by Katie Osborne MD> 12/30/22 9239 [facility] Work Phone: 1(670) 598-373510-30-2023 Progress note Author Henrry Issa [facility] December 29, 2022 2:16pm Note Date/Time December 29, 2022 2 :16pm [facility] [address] [place] [address] Cardiology Progress Note Signed Patient: Emmanuel Jiménez MR#: [id number] : 1940 Acct:[id number] Age/Sex: 82 / M Adm Date: 3 Loc: 3T Room: [address] [place] [address] Type: ADM IN Attending Dr: Katie Osborne [...] block. Intermittently he is conducting in a oty-og-wuyaxvwbfo. No observed manifestations of complete heart block. [...] % (Auto) 48.1 Lymph % (Auto) 41.3 Emmons % (Auto) 8.4 Eos % (Auto) 1.4 Baso % (Auto) 0.8 Nucleat RBC Rel Count 0.1 Neut # (Auto) 3.6 Lymph # (Auto) 3.1 Emmons # (Auto) 0.6 Eos # (Auto) 0.1 [...] MPV Neut % (Auto) Lymph % (Auto) Emmons % (Auto) Eos % (Auto) Baso % (Auto) Nucleat RBC Rel Count Neut # (Auto) Lymph # (Auto) Emmons # (Auto) Eos # (Auto) Baso # [...] <Electronically signed by MD Henrry Issa> 12/29/22 141 [facility] Work Phone: 1([phone]) 747-752710-30-2023 Progress note Author Katie Osborne [facility] December 29, 2022 1:57pm Note Date/Time December 29, 2022 1 :57pm [facility] [address] [place] [address] Hospitalist Progress Note Signed Patient: Emmanuel Jiménez MR#: [id number] : 1940 Acct:[id number] Age/Sex: 82 / M Adm Date: 3 Loc: Room: [address] [place] [address] Type: ADM IN Attending Dr: Katie Osborne MD Copies to: ~ Date of Service: 12/29/2022 Subjective Subjective Narrative: Patient was seen and evaluated at bedside this morning. threat monitoring analyst was reviewed, patient continued to have heart [...] Mg/0.4 Ml Syringe SUBCUT 12/29/23 09:59 DAILY@10 [facility] Melatonin 5 mg 10/29/23 10:54 Melatonin 5 Mg Tablet PO 10/28/24 10:53 QHS PRN Insomnia Ondansetron HCl 4 [...] Plan: ? Patient's baseline is unknown, at [facility] his creatinine is 1.6, today here it is 1.4 ? Patient did receive atropine at [facility], his heart rate has been improved while [...] <Electronically signed by Katie Osborne MD> 12/29/22 6639 [facility] Work Phone: 1(184) 443-287610-29-2023 Consult note Author Haylee Benedict [facility] December 28, 2022 7:25pm Note Date/Time December 28, 2022 7 :22pm [facility] [address] [place] [address] Cardiology Consult Note Signed Patient: Emmanuel Jiménez MR#: [id number] : 1940 Acct:[id number] Age/Sex: 82 / M Adm Date: 3 Loc: Room: [address] [place] [address] Type: ADM IN Attending Dr: Jarred Cline [...] noted below or in HPI [facility] Social History Smoking Status: Never smoker Meds [...] <Electronically signed by Haylee Benedict MD> 12/28/221924 [facility] Work Phone: 1([phone]) 809-500510-29-2023 History and physical note Author Jarred Cline [facility] December 28, 2022 1:36pm Note Date/Time December 28, 2022 1 :21pm [facility] [address] [place] [address] Hospitalist H&P Signed Patient: Emmanuel Jiménez MR#: [id number] : 1940 Acct:[id number] Age/Sex: 82 / M Adm Date: 3 Loc: Room: [address] [place] [address] Type: ADM IN Attending Dr: Jarred Cline DO Copies to: DO Jarred Childers Jr, DO~ HPI DATE OF EXAMINATION: 12/28/22 CHIEF COMPLAINT: low heart rate HISTORY OF PRESENT ILLNESS: Mr Jiménez is an 82-year-old male with past medical history of diabetes and hypertension who presents hospital today with chief complaint of low heart rate. He was transferred here from [facility], he has been feeling exertional dyspnea [...] to the emergency room. He went to [facility] was then transferred back here due to there being no cardiology services at [facility]. Patient denies any cough with his shortness [...] negative unless noted below or [facility] Social [facility] Smoking Status: Never smoker [...] ? Echocardiogram ordered ? Cardiology consulted (2) AZC (acute kidney injury): Plan: ? Patient's baseline is unknown, at [facility] his creatinine is 1.6, today here it is 1.4 ? Likely secondary to decreased perfusion from bradycardia ? Patient did receive atropine at [facility], his heart rate has been improved while [...] signed by Jarred Cline DO> 12/28/22 1336 [facility] Work Phone: Discharge summary Author Katie Osborne [facility] December 31, 2022 12:42pm Note Date/Time December 31, 2022 1 2:43pm [facility] [address] [place] [address] Discharge Summary Signed Patient: Emmanuel Jiménez MR#: [id number] : 1940 Acct:[id number] Age/Sex: 82 / M Adm Date: 3 Loc: Room: [address] [place] [address]: Katie Osborne MD Copies to: [...] heart rate. He was transferred here from [facility], he has been feeling exertional dyspnea for [...] % (Auto) 61.2, Lymph % (Auto) 27.7, Emmons % (Auto) 8.9, Eos % (Auto) 1.6, Baso % (Auto) 0.6, Nucleat RBC Rel Count 0.0, Neut # (Auto) 4.1, Lymph # (Auto) 1.9, Emmons # (Auto) 0.6, Eos # (Auto) 0.1, [...] with nurse for incision check in the [facility] Office on - we will call you. 2. Chest x-ray to be done the same day as your device check at [facility] 04/15/2023. 3. Pacemaker/ICD clinic appointment at [facility] on 04/15/2023 at 11:00am . 4. Office [...] signed by Katie Osborne MD> 12/31/22 1242 [facility] Work Phone: Evaluation note* Diagnosis Onset Date Resolution Status ZAC (acute kidney injury) ac luke Diabetes mellitus acute HTN (hypertension) acute Mobitz type 2 second degree AV block acute [facility] Work Phone: Evaluation note* Diagnosis AV block, Mobitz II Mobitz (type) II atrioventricular block Pacemaker Cardiac pacemaker in situ Obesity (BMI 30.0-34.9) documented in this encounter [facility] Work Phone: Evaluation note* Diagnosis Acute pain of right shoulder Rotator cuff arthropathy, right Arthritis of right acromioclavicular joint [facility] HealthcareEvaluation noteNo assessment information availableMet[facility] Work Phone: Evaluation note* Diagnosis Non-ischemic cardiomyopathy (Multi)- Primary Other primary cardiomyopathies AV block, Mobitz II Mobitz (type) II atrioventricular block Pacemaker Cardiac pacemaker in situ Mixed hyperlipidemia BMI 30.0-30.9,adult documented in this encounter [facility] Work Phone: Evaluation note* Diagnosis Type 2 diabetes mell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, without long-term current use of insulin ([facility]) ([facility])- Primary Type 2 diabetes mellitus with hyperglycemia, without long-term current use of insulin ([facility]) documented in this encounter [facility] HealthcareEvaluation note* Diagnosis Type 2 diabetes mellitus without complication, unspecified whether shelter insulin use ([facility])- Primary Pain due to onychomycosis of toenails of both feet documented in this encounter [facility] HealthcareEvaluation note* Diagnosis Type 2 diabetes mell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, without long-term current use of insulin (HCC) ([facility]/HCC)- Primary Type 2 diabetes mellitus with hyperglycemia, without long-term current use of insulin ([facility]/HCC) Type 2 diabetes mell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, without long-term current use of insulin (HCC) ([facility]) Type 2 diabetes mellitus with hyperglycemia, without long-term current use of insulin ([facility]) documented in this encounter [facility] Healthcare[facility]* Diagnosis Type 2 diabetes mell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, without long-term current use of insulin (HCC) ([facility])- Primary Type 2 diabetes mellitus with hyperglycemia, without long-term current use of insulin (CMS/HCC) Type 2 diabetes mell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, without long-term current use of insulin (HCC) (CMS/HCC) Type 2 diabetes mellitus with hyperglycemia, without long-term current use of insulin (CMS/HCC) Rotator cuff arthropathy, right- Primary Shoulder arthritis Unspecified arthropathy, shoulder region documented in this encounter [facility] HealthcareEvaluation note* Diagnosis Pacemaker- Primary Cardiac pacemaker in situ AV block, Mobitz II Mobitz (type) II atrioventricular block Mixed hyperlipidemia Paroxysmal atrial fibrillation (Multi) Atrial fibrillation Mild tricuspid regurgitation Diabetes mellitus type II, non insulin dependent (Multi) Type II or unspecified type diabetes mellitus without mention of complication, not stated as uncontrolled BMI 28.0-28.9,adult Never smoked tobacco Overweight documented in this encounter [facility] Work Phone: Evaluation note* Diagnosis Type 2 diabetes mell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, without long-term current use of insulin (HCC) ([facility]/HCC) documented in this encounter [facility] HealthcareEvaluation note* Diagnosis Paroxysmal atrial fibrillation (Multi)- Primary Atrial fibrillation History of cardiomyopathy Personal history of other diseases of circulatory system Mild tricuspid regurgitation AV block, Mobitz II Mobitz (type) II atrioventricular block Pacemaker Cardiac pacemaker in situ Mixed hyperlipidemia Diabetes mellitus type II, non insulin dependent (Multi) Type II or unspecified type diabetes mellitus without mention of complication, not stated as uncontrolled Obesity (BMI 30.0-34.9) Never smoked tobacco High risk medication use documented in this encounter [facility] Work Phone: Hospital Discharge instructions Additional Instructions [...] with nurse for incision check in the [facility] Office on - 01/08/2023 at 1:30pm. 2. Chest x-ray to be done the same day as your device check at [facility] 04/15/2023. 3. Pacemaker/ICD clinic appointment at [facility] on 04/15/2023 at 11:00am . 4. Office visit with Dr. Moser. [][facility] Work Phone: Refngw for referral (narrative)* Consultation (Routine) - Authorized Specialty Diagnoses / Procedures Referred By Contac t Referred To Contact Cardiology Diagnoses AV block, Mobitz II Pacemaker Procedures Follow Up In Cardiology Henrry Issa MD [address] [place] [address] [address], [address] [address] Henrry Issa MD [address] [place] [address] 2, [address] [address] Referral ID Status Reason Start Date Expiration Date V isits Requested Visits Authorized [id number] Authorized 01/14/2023 01/14/2024 1 1 [facility] Work Phone: Reavrt for referral (narrative)* Consultation (Routine) - Authorized Specialty Diagnoses / Procedures Referred By Contac t Referred To Contact Cardiology Diagnoses AV block, Mobitz II Procedures Follow Up In Cardiology Henrry Issa MD [address] [place] [address] 2, [address] [address] Stephanie Steward MD [address] [facility] 2, [address] [address] Referral ID Status Reason Start Date Expiration Date V isits Requested Visits Authorized [id number] Authorized 07/24/2023 07/23/2024 1 1 [facility] Work Phone: Reason for referral (narrative)No reason for referral information availablePremier Health [facility] Work Phone: Summary Purpose Family History No [...] degree av block April 15, 2024 11:06am Chief Complaint Admit Date 2nd degree av block October 18, 2024 2: 45pm Reason for Referral Specialty Diagnoses / Procedures Referred By Contac t Referred To Contact Orthopaedic Surgery Diagnoses Arthritis of right acromioclavicular joint Procedures M Inj/Asp: R acromioclavicular Negro Brown [place] [address] [address] Referral ID Status Reason Start Date Expiration Date V isits Requested Visits Authorized [id number] Pending Review 04/08/2023 10/05/2023 1 1 Specialty Diagnoses / Procedures Referred By Milan t Referred To Contact Orthopaedic Surgery Diagnoses Rotator cuff arthropathy, right Procedures L Inj/Asp: R subacromial bursa Negro Brown PA [address] [facility] [address] [place] [address] Referral ID Status Reason Start Date Expiration Date V isits Requested Visits Authorized [id number] Authorized 04/08/2023 10/05/2023 1 1 Additional Source Comments (unrecognized sect ion and content) No Status Records FoundNo Status Records FoundNo Status Records FoundNo Status Records Found INFORMATION SOURCE (unrecogn ized section and content) DATE CREATED AUTHOR 05/25/2022 [facility] DATE CREATED AUTHOR AUTHOR'S ORGANIZ ATION 10/16/2024 [facility] EPIC DATE CREATED AUTHOR AUTHOR'S ORGANIZ ATION 10/23/2024 [facility] DATE CREATED AUTHOR AUTHOR'S ORGANIZ ATION 11/06/2024 [facility] Credit Processor Teams (unrecognized sec tion and content) Team [...] Active Jordan Bolanos MD Other Provider Active DAMION Snider- Other Provider Active Lauren Steiner MD Other Provider Active Team Status: Inactive Member Role Status Dates Hugo Moser JR DO Primary Care Provider Active Henrry Issa MD Attending Provider Active Clinical Manager Relationship Specialty Start Date End Date Hugo Moser DO [address] [facility], [place] [address] PCP - General Internal Medicine 12/31/22 Clinical Manager Relationship Specialty Start Date End Date Hugo Moser MD [address] [facility], [place] [address] PCP - General Internal Medicine 04/08/23 Team Status: Inactive Member Role Status Dates Hugo Moser JR DO Primary Care Provider Active Start: April 15, 2023 End: April 15, 2023 Henrry Issa MD Referring Provider Active Start: April 15, 2023 End: April 15, 2023 Sangita Salas APRN Attending Provider Active Start: April 15, 2023 End: April 15, 2023 Clinical Manager Relationship Specialty Start Date End Date Hugo Moser DO PCP - General Internal Medicine 12/31/22 Team Status: Inactive Member Role Status Dates Hugo Moser JR DO Primary Care Provider Active Start: October 16, 2023 End: October 16, 2023 Henrry Issa MD Attending Provider Active Start: October 16, 2023 End: October 16, 2023 Clinical Manager Relationship Specialty Start Date End Date Hugo Moser MD [address] [facility], [place] [address] PCP - General Internal Medicine 04/08/23 Clinical Manager Relationship Specialty Start Date End Date Hugo Moser MD [address] [facility], [place] [address] PCP - General Internal Medicine 04/08/23 Clinical Manager Relationship Specialty Start Date End Date Hugo Moser MD [address] [facility] [place] [address] PCP - General Internal Medicine 04/08/23 Clinical Manager Relationship Specialty Start Date End Date Hugo Moser MD [address] [place] [address] PCP - General Internal Medicine 04/08/23 Clinical Manager Relationship Specialty Start Date End Date Hugo Moser MD [address] [facility] [place] [address] PCP - General Internal Medicine 04/08/23 Clinical Manager Relationship Specialty Start Date End Date Hugo Moser MD [address] [facility] [place] [address] PCP - General Internal Medicine 04/08/23 Clinical Manager Relationship Specialty Start Date End Date Hugo Moser MD [address] [facility] [place] [address] PCP - General Internal Medicine 04/08/23 Clinical Manager Relationship Specialty Start Date End Date Hugo Moser MD [address] [facility] [place] [address] PCP - General Internal Medicine 04/08/23 Clinical Manager Relationship Specialty Start Date End Date Hugo Moser MD [address] [facility] [place] [address] PCP - General Internal Medicine 04/08/23 Clinical Manager Relationship Specialty Start Date End Date Hugo [...] April 15, 2024 End: April 15, 2024 Clinical Manager Relationship Specialty Start Date End Date Hugo Moser MD [address] [place] [address] PCP - General Internal Medicine 04/08/23 Clinical Manager Relationship Specialty Start Date End Date Hugo Moser MD [address] [place] [address] PCP - General Internal Medicine 04/08/23 Clinical Manager Relationship Specialty Start Date End Date Hugo Moser MD [address] [place] [address] PCP - General Internal Medicine 04/08/23 Clinical Manager Relationship Specialty Start Date End Date Hugo Moser MD [address] [facility], [place] [address] PCP - General Internal Medicine 04/08/23 Team Status: Active Member Role Status Dates Hugo Moser JR DO Primary Care Provider Active Start: October 18, 2024 Stephanie Steward MD Other Provider Active Start: October 18, 2024 Cristian Teran MD Attending Provider Active Start: October 18, 2024 Clinical Manager Relationship Specialty Start Date End Date Hugo Moser DO [address] [place], [place] [id number] PCP - General Internal Medicine 11/09/24 Reason for Visit (unrecogniz ed section and content) Reason Comments Follow-up Swelling and pain at pacemaker site.Placed 2 weeks ago. Specialty Diagnoses / Procedures Referred By Contac t Referred To Contact Cardiology Diagnoses AV block, Mobitz II Pacemaker Procedures Follow Up In Cardiology Henrry Issa MD [address] [place] [address] [address], [address] [address] Referral ID Status Reason Start Date Expiration Date V isits Requested Visits Authorized [id number] Authorized 01/14/2023 01/14/2024 1 1 Reason Comments Pain Reason Comments Follow-up 6 month Specialty Diagnoses / Procedures Referred By Milan t Referred To Contact Cardiology Diagnoses AV block, Mobitz II Pacemaker Procedures Follow Up In Cardiology Henrry Issa MD [address] [place] [address] 2, [address] [address] Henrry Issa MD [address] [place] [address], [place] [id number] Referral ID Status Reason Start Date Expiration Date V isits Requested Visits Authorized [id number] Authorized 01/14/2023 01/14/2024 1 1 Reason Comments Diabetes Reason Comments DM Foot Care Dm nail care Reason Comments Follow-up Reason Comments Follow-up 6m Specialty Diagnoses / Procedures Referred By Milan t Referred To Contact Cardiology Diagnoses AV block, Mobitz II Procedures Follow Up In Cardiology Henrry Issa MD Steward, Stephanie Arevalo MD [address] [place] [address] [address], [address] [address] Phone: tel: fax: Referral ID Status Reason Start Date Expiration Date V isits Requested Visits Authorized [id number] Authorized 07/24/2023 07/23/2024 1 1 Reason Onset Date Comments Appointment Confirmation 04/15/2024 Reason Onset Date Comments Appointment Confirmation 07/18/2024 Reason Onset Date Comments Blood Sugar Problem 08/02/2024 Reason Comments Follow-up 6 month follow up fo r Pacemaker Specialty Diagnoses / Procedures Referred By Contac t Referred To Contact Cardiology Diagnoses Non-ischemic cardiomyopathy (Multi) Procedures Follow Up In Cardiology Stephanie Steward MD [address] [facility] 2, [address] [address] Phone: tel: fax: Stephanie Steward MD [address] [facility] 2, [facility] [address] [place] [address] Phone: tel: fax: Referral ID Status Reason Start Date Expiration Date V isits Requested Visits Authorized [id number] Authorized 03/09/2024 03/09/2025 1 1 Goals (unrecognized section and content) [...] BE BASED ON THE PRIMARY CLINICAL RECORDS. [employer] [facility]. provides no warranty or guarantee of the accuracy or completeness of information in this document.
[2024-11-10 06:47] LABS: Hematocrit 43.8 % (42.0-54.0); Hemoglobin 14.2 g/dL (14.0-18.0); Immature Granulocytes Abs Auto 0.03 10^3/uL (0.00-0.03); Immature Granulocytes Pct Auto 0.4 % (0.0-0.5); Lymphocytes Absolute Auto 2.8 10^3/uL (1.2-3.8); Mean Corpuscular HGB Conc 32.4 g/dL (29.9-35.2); Mean Corpuscular Hemoglobin 30.3 pg (25.9-34.0); Mean Corpuscular Volume 93.6 fL (80.0-94.0); Platelet Count 183 10^3/uL (150-450); Red Blood Count 4.68 10^6/uL (4.70-6.10); White Blood Count 7.2 10^3/uL (4.0-11.0)
[2024-11-10 07:12] LABS: Alanine Aminotransferase 20 U/L (16-63); Anion Gap 14.3; Blood Urea Nitrogen 24.0 mg/dL (7.0-18.0); Calcium 9.2 mg/dL (8.5-10.1); Carbon Dioxide 28.3 mmol/L (21.0-32.0); Chloride 105 mmol/L (98-107); Cholesterol 89 mg/dL (<=200); Estimated GFR (African America >60 (>=60 mL/min/1.73m^2); Estimated GFR (Non-African Ame 56 (>=60 mL/min/1.73m^2); Glucose 120 mg/dL (74-106); HDL Cholesterol 36 mg/dL (40-60); Potassium 4.6 mmol/L (3.5-5.1); Sodium 143 mmol/L (136-145); Triglycerides 83 mg/dL (<=150); VLDL CHOLESTEROL 16.6 mg/dL
== END 2024-11-10 06:28 | disposition home or self-care (01) ==
LOC: LAB 06:29
PROVIDERS: PCP Internal Medicine; Visit Provider Internal Medicine Cardiovascular Disease
DX: E78.2 Mixed hyperlipidemia (principal); I42.8 Other cardiomyopathies
CPT/HCPCS: 36415; 80048; 80061; 84460; 85025

== ENCOUNTER 2025-01-01 07:25 | Emergency (ER) | payer MEDICARE, SELFPAY ==
--- OUTSIDE RECORDS SUMMARY | 2025-01-01 07:32 | XMS_ITS | Clinical Summary ---
Author Organization [facility] Address [address] [facility] [place] [address] Care Team Providers Care Claims Coordinator Name Role Phone Hugo Tanner MD Primary Care Provider [phone] Allergies No known active allergies Medications MedicationSigDispense QuantityRefillsLast FilledStart DateEnd DateStatus rosuvastatin (Crestor) 40 MG tablet Take 40 mg by mouth in the morning.Active ezetimibe (Zetia) 10 MG tablet Take 5 mg by mouth in the morning.Active Finerenone (KERENDIA PO) Take 20 mg by mouthActive metFORMIN (Glucophage) 500 MG tablet Take 2 tablets (1,000 mg) by mouth in the morning and 2 tablets (1,000 mg) in the evening. Take with meals. 360 tablet 4Active empagliflozin (Jardiance) 25 MG Indications:Type 2 diabetes mell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, without long-term current use of insulin (HCC)Take 1 tablet (25 mg) by mouth in the morning. 30 tablet 4Active Docusate Calcium (STOOL SOFTENER PO) Take by mouthActive pen needle 33G x 4 mm misc Indications:Type 2 diabetes mell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, without long-term current use of insulin (HCC)Injections subcutaneous daily 100 each 4Active acarbose (Precose) 100 MG tablet Take 100 mg by mouth in the morning and 100 mg before bedtime.5Active Glucose Blood (Blood Glucose Test Strips 333) strip Indications:Type 2 diabetes mell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, without long-term current use of insulin (HCC)1 each by In Vitro route 2 (two) times a day 100 strip 306/5Active famotidine (Pepcid) 40 MG tablet Take 40 mg by mouth at eevkbgz12/02/2025Active insulin pen needle (Embecta Pen Needle Jessica 2 Gen) 32G x 4 mm [facility] Indications:Type 2 diabetes mell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, with long-term current use of insulin (HCC)USE DAILY DIRECTED WITH SUBCUTANEOUS INJECTIONS 100 each 5Active insulin lispro protamine-insulin lispro (HumaLOG MIX 75/25 KWIKPEN) (75-25) 100 UNIT/ML injection Indications:Type 2 diabetes mell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, with long-term current use of insulin (HCC)30 units breakfast and 15 units dinner 15 mL 506Active Active Problems ProblemNoted DateDiagnosed DateType 2 diabetes mell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, with long-term current use of giczvuz3912/03/2023 Assessment & Plan (10/14/2024 9:52 AM EDT): During the appointment today all pertinent labs, [...] at breakfast to improve his afternoon readings. Assessment & Plan (07/19/2024 12:17 PM EDT): During the appointment today all pertinent labs, [...] check his bg before breakfast and dinner. Assessment & Plan (04/18/2024 2:07 PM EST): During the appointment today all pertinent labs, [...] this. He doesn't want to do this. HTN (hypertension)12/01/2023Localized, primary osteoarthritis of hand12/01/2023 Mixed tsacjvpwcnuvpa87/15/2023Mobitz type II atrioventricular block01/14/2023VT (deep venous thrombosis)01/14/2023Non-ischemic yezoujrsfegnnw53/15/2023acemaker 01/14/2023 Resolved Problems ProblemNoted DateDiagnosed DateResolved DateType 2 diabetes mellitus with hyperglycemia, without long-term current use of rywuwra11/ Assessment & Plan (01/18/2024 12:37 PM EST): During the appointment today all pertinent labs, [...] if the numbers are not coming down. Assessment & Plan (12/03/2023 4:03 PM EDT): During the appointment today all pertinent labs, [...] make sure he is drinking enough water. Encounters DateTypeDepartmentCare TzerNeeaeszxnvc21/02/2025Telephone [facility] [address] [place] [address] Paige Baron MA Med Wrrvae2510/27/2024Refill [facility] [address] [facility] [address] [address] [place] [address] Veda Gonzalez, DO Type 2 diabetes mell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, with long-term current use of insulin ([facility])10/14/2024 9:45 AM EDTOffice Visit [facility] [address] [facility] [address] [place] [address] Veda Gonzalez, DO Type 2 diabetes mell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, with long-term current use of insulin ([facility])10/14/20242410Theriq39/14/2025Telephone [facility] [address] [place] [address] Paige Baron MA from Last 3 Months Immunizations ImmunizationAdministration DatesNext DueInfluenza, injectable, quadrivalent, preservative free01/31/2021,05/17/2018Pneumococcal Polysaccharide PPSV23 05/17/2018 Family History Medical HistoryRelationNameCommentsHeart attackFatherHeart diseaseFatherNo Known ProblemsMotherRelationNameStatusCommentsFatherDeceasedMotherDeceased Social History Tobacco UseTypesPacks/DayYears UsedDateSmoking Tobacco: NeverSmokeless Tobacco: Never Tobacco Cessation:Counseling Given: Yes Alcohol UseStandard Drinks/WeekCommentsNot Currently0 (1 standard drink = 0.6 oz pure alcohol)AUDIT-CAnswerDate RecordedQ1: How often do you have a drink containing alcohol?Never01/18/2024Q2: How many drinks containing alcohol do you have on a typical day when you are drinking?Patient does not drink01/18/2024Q3: How often do you have six or more drinks on one occasion?Never01/18/2024HQ-2 AnswerDate RecordedPatient Health Questionnaire-2 Libup204Sex and Gender InformationValueDate RecordedSex Assigned at BirthNot on fileLegal SexMale 05/14/2022 7:21 PM EDTGender IdentityNot on fileSexual OrientationNot on file Last Filed Vital Signs Vital SignReadingTime TakenCommentsBlood Hxpzqdsk442/7808 9:30 AM EDT Ijhry6247 9:30 AM SFPJuqssocgeyb99.7 ??C (96.3 ??F)10/14/2024 9:30 AM EDTRespiratory Lvtw7827 1:27 PM EDTOxygen Ixyibpoarm02%10/14/2024 9:30 AM EDTInhaled Oxygen Concentration--Ugfvzu62.9 kg (189 lb 6.4 oz)10/14/2024 9:30 AM JLDOudxwq264.2 cm (5' 7 )10/14/2024 9:30 AM EDTBody Mass Index29.66010/14/2024 9:30 AM EDT Plan of Treatment DateTypeDepartmentCare Team (Latest Contact Info)Dxhmvnrjlla79/14/2025 8:45 AM ESTOffice Visit [facility] [address] [place] [address] Veda Gonzalez, DO [address] [place] [address] Health MaintenanceDue DateLast DoneCommentsDTaP/Tdap/Td Vaccines (1 - Tdap) 08/18/1947COVID-19 Vaccine ( season)/01/2022, 04/01/2021, 04/19/2020, Additional history existsInfluenza Vaccine (#1)512/04/2020, 05/17/2018Pneumococcal Vaccine: 65+ RmgpbIgtihvqsuvvp54/18/2019HIB VaccinesAged OutNo longer eligible based on patient's age to complete this topicHPV Vaccines Aged OutNo longer eligible based on patient's age to complete this topic Hepatitis A VaccinesAged OutNo longer eligible based on patient's age to complete this topicHepatitis B VaccinesAged OutNo longer eligible based on patient's age to complete this topicIPV VaccinesAged OutNo longer eligible based on patient's age to complete this topicMeningococcal B VaccineAged OutNo longer eligible based on patient's age to complete this topicMeningococcal VaccineAged OutNo longer eligible based on patient's age to complete this topicRotavirus VaccinesAged OutNo longer eligible based on patient's age to complete this topic Procedures Procedure NamePriorityDate/TimeAssociated DiagnosisCommentsPOCT GLYCOSYLATED HEMOGLOBIN (HGB A1C)Gswgnwe9410/14/2024 9:42 AM EDT Type 2 diabetes mell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, with long-term current use of insulin (HCC) from Last 3 Months Results * (ABNORMAL) POCT glycosylated hemoglobin (Hb A1C) docked device (10/14/2024 9:42 AM EDT)ComponentValueRef RangeTest MethodAnalysis TimePerformed At Pathologist SignatureHemoglobin A1C8.7Specimen (Source)Anatomical Location / LateralityCollection Method / VolumeCollection TimeReceived TimeBloodVenous blood specimen / Jqiajgj9210/14/2024 9:42 AM EDT Narrative Authorizing ProviderResult TypeResult StatusVeda Gonzalez DOPOINT OF CARE TEST ENTER/EDIT ORDERABLESFinal Result from Last 3 Months Insurance * Guarantor: Shimon Jiménez TypeRelation to PatientDate of BirthPhone Billing AddressPersonal/KbyumgXxtn13/19/[address] [facility] [place] [address] Care Teams Team MemberRelationshipSpecialtyStart DateEnd Date Hugo Tanner MD [address] [place] [address] PCP - GeneralInternal Medicine04/08/23
--- OUTSIDE RECORDS SUMMARY | 2025-01-01 07:32 | XMS_ITS | Clinical Summary ---
Author Organization [facility] Address [address] [place] [address] Phone Care Team Providers Care Adjunct Political Science Instructor Name Role Phone Hugo Tanner DO Primary Care Provider Allergies No known active allergies Medications MedicationSigDispense QuantityRefillsLast FilledStart DateEnd DateStatus acarbose (Precose) 100 mg tablet Take 1 tablet (100 mg) by mouth 3 times daily (morning, midday, late afternoon). 09/12/2022ctive Jardiance 25 mg Take 1 tablet (25 mg) by mouth once daily in the morning. Take before meals. 11/10/2022ctive ezetimibe (Zetia) 10 mg tablet Take 0.5 tablets (5 mg) by mouth once daily.12/16/2022ctive rosuvastatin (Crestor) 40 mg tablet Take 1 tablet (40 mg) by mouth once daily.11/11/2022ctive finerenone (KERENDIA ORAL) Take 1 tablet by mouth once daily.Active metFORMIN (Glucophage) 500 mg tablet Take 1 tablet (500 mg) by mouth. Take one tablet by mouth at noon and two tablets by mouth at pjqcvr3006/25/2023ctive apixaban (Eliquis) 5 mg tablet Indications:Atrial fibrillation, unspecified type (Multi)Take 1 tablet (5 mg) by mouth 2 times a day. 180 tablet /ctive insulin lispro protamin-lispro (HumaLOG Mix 75-25) 100 unit/mL (75-25) pen 30 units breakfast and 15 units fguxjy87ctive Active Problems ProblemNoted DateDiagnosed DateBMI 28.0-28.9,adult03/09/2024Never smoked tobacco 5BMI 30.0-30.9,adult07/24/2023V block, Mobitz II01/14/2023acemaker 01/14/2023Obesity (BMI 30.0-34.9)01/14/2023Mixed jqwxyyyjltbgtt34/15/2023VT (deep venous thrombosis)01/14/2023iabetes mellitus type II, non insulin uetbkuzis37/15/2023Non-ischemic amcvxbcvyyxcgb56/15/2023 Encounters DateTypeDepartmentCare XdzkRgwjukegvnx03/15/2025Telephone [address] [place] [address] Lupe Burns LPN Fgsrknd3311/10/2024Scanned Document [facility] [address] [place] [address] Scanning, Generic Provider 11/09/2024 11:00 AM EDTOffice Visit [address] [address] Stephanie Steward MD Paroxysmal atrial fibrillation (Multi) (Primary Dx); History of cardiomyopathy; Mild tricuspid regurgitation; AV block, Mobitz II; Pacemaker; Mixed hyperlipidemia; Diabetes mellitus type II, non insulin dependent (Multi); Obesity (BMI 30.0-34.9); Never smoked tobacco; High risk medication use Discharge Disposition: Home11/09/20244939Nrckof17/05/2025Tephone [place] [address] [place] [address] Karuna Ashton LPN 10/24/2024Refill [address] [address] Clara Bush LPN Atrial fibrillation, unspecified type (Multi)from Last 3 Months Immunizations ImmunizationAdministration DatesNext DueFlu vaccine (IIV4), preservative free *Check age/dose*01/31/2021,05/17/2018Moderna COVID-19 vaccine, bivalent, blue cap/goff label *Check age/dose*12/11/2021neumococcal polysaccharide vaccine, 23-valent, age 2 years and older (PNEUMOVAX 23)05/17/2018 Social History Tobacco UseTypesPacks/DayYears UsedDateSmoking Tobacco: NeverSmokeless Tobacco: Never Tobacco Cessation:Counseling Given: Not Answered Alcohol UseStandard Drinks/WeekCommentsNever0 (1 standard drink = 0.6 oz pure alcohol)Sex and Gender InformationValueDate RecordedSex Assigned at BirthNot on fileLegal CjxJezp87/01/2023 11:58 AM EDTGender IdentityNot on fileSexual OrientationNot on file Last Filed Vital Signs Vital SignReadingTime TakenCommentsBlood Hbxeciyo974/5609 11:06 AM EDT Tdnyd581311/09/2024 11:06 AM EZCVehrsxjdzux76.5 ??C (97.7 ??F)01/08/2023 1:38 PM ESTRespiratory Rate--Oxygen Saturation--Inhaled Oxygen Concentration--Qypdqv79.1 kg (192 lb)11/09/2024 11:06 AM GGECazubl679.2 cm (5' 7 )11/09/2024 11:06 AM EDT Body Mass Index30.0711/09/2024 11:06 AM EDT Plan of Treatment DateTypeDepartmentCare Team (Latest Contact Info)Rhqlbyhwpoi08/21/2026 11:10 AM EDTOffice Visit [facility] [address] [phone] Stephanie Steward MD [address] [facility] 2, [address] [address] Health MaintenanceDue DateLast DoneCommentsDiabetes: Hemoglobin A1C1939 Diabetes: Urine Protein Smbwjqgio83/19/1940Lipid Panel1939Medicare Annual Wellness Visit (AWV)1939Diabetes: Retinopathy Wnibzzbvv78/19/1950 DTaP/Tdap/Td Vaccines (1 - Tdap)08/18/1961Zoster Vaccines (1 of 2)08/18/1989RSV High Risk: (Elderly (60+) or Population) (1 - 1-dose 75+ series) 08/18/2014Pneumococcal Vaccine (2 of 2 - PCV)Influenza Vaccine (#1)/04/2020, 05/17/2018COVID-19 Vaccine (4 - season)/01/2022, 04/01/2021, 04/19/2020, Additional history exists HIB VaccinesAged OutNo longer eligible based on patient's age to complete this topicHPV VaccinesAged OutNo longer eligible based on patient's age to complete this topicHepatitis A VaccinesAged OutNo longer eligible based on patient's age to complete this topicHepatitis B VaccinesAged OutNo longer eligible based on patient's age to complete this topicIPV VaccinesAged OutNo longer eligible based on patient's age to complete this topicMeningococcal VaccineAged OutNo longer eligible based on patient's age to complete this topicRotavirus VaccinesAged Out No longer eligible based on patient's age to complete this topic Procedures Procedure NamePriorityDate/TimeAssociated DiagnosisCommentsOUTSIDE LAB SCAN 11/10/2024 from Last 3 Months Results * OUTSIDE LAB SCAN (11/10/2024) Narrative 11/10/2024 Ordered by an unspecified provider. Authorizing ProviderResult TypeResult StatusGeneric Provider ScanningOUTSIDE SCANFinal Result from Last [address] [place] [address] * Guarantor: Shimon Jiménez TypeRelation to PatientDate of BirthPhone Billing AddressPersonal/DciqouFqkm66/19/1941 [facility] [address] Care Teams Team MemberRelationshipSpecialtyStart DateEnd Date Hugo Tanner DO [facility] [place] [address] PCP - GeneralInternal Medicine11/09/24
[2025-01-01 07:33] VITALS: BP 118/60; PULSE 70; TEMP 36.5; O2SAT 98; BMI 29.0
--- OUTSIDE RECORDS SUMMARY | 2025-01-01 07:33 | XMS_ITS | CCD ---
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 Incisor Operator Name Role Phone VINODONE, DR ROGERS Admitting [...] Ciro, JR Hugo Ferris Primary Care Provider [phone] DO Jarred Cline Admit Provider MD Katie Osborne Attending Provider [phone] SULEIMAN Prakash Ana Maria Other Provider Unavailable DO Aretha Chaparro Other Provider MD Stephanie Brown Other Provider MD Henrry Purvis Other Provider MD Farzana Escalera Other Provider MD Hugo Johnson Other Provider BHAVIN Gregorio Other Provider MD Natacha Padron Other Provider MD Kang Douglas Other Provider MD Jordan Bolanos Other Provider Crissy [facility] Nikia Ferris Other Provider [phone] MD Lauren Steiner Other Provider [phone] JR Hugo Moser Primary Care Provider DO Jarred Cline Admit Provider [phone] MD Katie Osborne Attending Provider SULEIMAN Prakash Other Provider Unavailable DO Aretha Chaparro Other Provider MD Stephanie Brown Other Provider MD Henrry Purvis Other Provider MD Farzana Escalera Other Provider MD Hugo Johnson Other Provider BHAVIN Gregorio Other Provider MD Natacha Padron Other Provider MD Kang Douglas Other Provider MD Jordan Bolanos Other Provider Crissy [facility] Nikia Ferris Other Provider MD Lauren Steiner Other Provider MD Henrry Purvis Attending Provider Hugo Moser DO Primary Care Provider Hugo Moser MD Primary Care Provider JR Hugo Moser Primary Care Provider [phone] MD Henrry Purvis Referring Provider BHAVIN Gregorio Attending Provider Hugo Moser DO Primary Care Provider JR Hugo Moser Primary Care Provider MD Henrry Purvis Attending Provider Hugo Moser JR Primary Care Provider Henrry Purvis MD Attending Provider VEDA ROME Attending Unavailable VEDA ROME Attending Unavailable VEDA ROME Attending Unavailable VEDA ROME Attending Unavailable HUGO MOSER Referring Unavailable KENNEDY CALDERON Attending Unavailable VEDA ROME Attending Unavailable JR. CÁRDENAS GEORGE C Attending Unavaila Hugo Pena JR Primary Care Provider Stephanie Brown MD Other Provider Cristian Teran MD Attending Provider Stephanie Brown Admitting Unavailable Nichelle, Stephanie Attending Unavailable Hugo Moser Primary Care Unavailable Henrry Purvis Admitting Unavail able Henrry Purvis Attending Unavail able Hugo Moser Primary Care Unavailable Nichelle, Stephanie Attending Unavailable Hugo Moser Primary Care Unavailable Nichelle, Stephanie Admitting Unavailable Stephanie Brown Attending Unavailable Hugo Moser Primary Care Unavailable Nichelle, Stephanie Admitting Unavailable Hugo Moser DO Primary Care Provider STEPHANIE BROWN Attending Unavailable STEPHANIE BROWN Referring Unavailable HUGO MOSER Primary Care Unavailable STEPHANIE BROWN Attending Unavailable HENRRY PURVIS Referring Unavailable HUGO MOSER Primary Care Unavailable Medications Current Medications MedicationDrug Class(es)DatesSig (Normalized)Sig (Original)acarbose 100 mg oral tablet (20 sources)alpha-Glucosidase InhibitorStart: 12-28-2022 End: 54-20-5755qbsl 1 tablet by mouth in the morningacarbose (Precose) 100 MG tablet Take 100 mg by mouth in the morning and 100 mg before bedtime. 06/16/2024 ActiveStart: 31-50-4086tsai 1 tablet by mouth three times dailyacarbose (Precose) 100 mg tablet Take 1 tablet (100 mg) by mouth 3 times daily (morning, midday, late afternoon). 09/12/2022 Active End: 03-00-7574auilczgo (Precose) 100 MG tablet 2 (two) times a day 12/03/2023 Discontinuedapixaban 5 mg oral tablet (1 source)Factor Xa InhibitorStart: 10-24-2024 End: 09-56-6369hzys 1 tablet by mouth twice dailyapixaban (Eliquis) 5 mg tablet Indications: Atrial fibrillation, unspecified type (Multi) Take 1 tablet (5 mg) by mouth 2 times a day. 180 tablet 1 10/24/2024 10/24/2025 Activeclindamycin 300 mg oral capsule (7 sources)Lincosamide AntibacterialStart: 81-15-3889nior 2 capsules by mouth three times dailyStart: 10-46-5809nigd 600 mg by mouth three times daily Clindamycin Hcl Active 600 MG PO Three times daily 12 December 31, 2022 12:00amDocusate (14 sources)Docusate Calcium (STOOL SOFTENER PO) Take by mouth Active empagliflozin 25 mg oral tablet (20 sources)Sodium-Glucose Cotransporter 2 InhibitorStart: 32-84-0493rwrp 1 tablet by mouth once daily before mealtimeJardiance 25 mg Take 1 tablet (25 mg) by mouth once daily in the morning. Take before meals. 11/10/2022 Active End: 57-89-0777vcrm 12.5 mg by mouth in the morningJardiance 25 MG Take 12.5 mg by mouth in the morning. 12/03/2023 Discontinuedezetimibe 10 mg oral tablet (20 sources)Dietary Cholesterol Absorption InhibitorStart: 57-99-4132qvlj 0.5 tablet by mouth once dailyezetimibe (Zetia) 10 mg tablet Take 0.5 tablets (5 mg) by mouth once daily. 12/16/2022 ActiveStart: 00-18-1251uigr 1 tablet by mouth once dailytake 5 mg by mouth in the morningezetimibe (Zetia) 10 MG tablet Take 5 mg by mouth in the morning. Activefamotidine 40 mg oral tablet (2 sources)Histamine-2 Receptor AntagonistStart: 20-93-7799prdi 1 tablet by mouth at bedtimefamotidine (Pepcid) 40 MG tablet Take 40 mg by mouth at bedtime 06/01/2024 Activefinerenone (KERENDIA ORAL) (3 sources)take 1 tablet by mouth once dailyfinerenone (KERENDIA ORAL) Take 1 tablet by mouth once daily. ActiveFinerenone (KERENDIA PO) (20 sources)Finerenone (KERENDIA PO) Take 20 mg by mouth ActiveFinerenone (KERENDIA PO) Take by mouth ActiveFinerenone (KERENDIA PO) Take by mouth 0 Active3 ml insulin degludec 100 unt/ml pen injector (9 sources)Insulin AnalogStart: 05-12-2024 End: 24-05-7726nvpfviq degludec (Tresiba FlexTouch) 100 UNIT/ML injection Indications: Type 2 diabetes mellitus with hyperglycemia, without long-term current use of insulin ([facility] Inject 12 Units under the skin Daily 15 mL 3 05/12/2024 07/19/2024 DiscontinuedStart: 07-10-2606amroezd degludec (Tresiba FlexTouch) 100 UNIT/ML injection Indications: Type 2 diabetes mellitus with hyperglycemia, without long-term current use of insulin ([facility] [place]) Inject 12 Units under the skin Daily 15 mL 3 01/18/2024 Active3 ml insulin lispro 25 unt/ml / insulin lispro protamine, human 75 unt/ml pen injector (8 sources)Insulin AnalogStart: 11-01-2024 End: 66-28-4639kohbafr lispro protamin-lispro (HumaLOG Mix 75-25) 100 unit/mL (75-25) pen 30 units breakfast and 15 units dinner 11/01/2024 11/01/2025 Active Start: 07-19-2024 End: 30-14-1434sqtpcng lispro protamine-insulin lispro (HumaLOG MIX 75/25 KWIKPEN) (75-25) 100 UNIT/ML injection Indications: Type 2 diabetes mell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, with long-term current use of insulin ([facility]) 30 units breakfast and 15 units dinner 15 mL 11 10/14/2024 10/14/2025 ActivemetFORMIN hydrochloride 500 mg oral tablet (20 sources)BiguanideStart: 20-03-7961zwxHWOQAR (Glucophage) 500 mg tablet Take 1 tablet (500 mg) by mouth. Take one tablet by mouth at noon and two tablets by mouth at supper 06/25/2023 ActiveStart: 06-25-2023 End: 34-49-6770vkgk 2 tablets by mouth in the morningmetFORMIN (Glucophage) 500 MG tablet Take 2 tablets (1,000 mg) by mouth in the morning and 2 tablets (1,000 mg) in the evening. Take with meals. 360 tablet 3 12/03/2023 Ankrsl77 hr metFORMIN hydrochloride 1000 mg / SITagliptin 100 mg extended release oral tablet (12 sources)Biguanide, Dipeptidyl Peptidase 4 InhibitorStart: 10-24-2023 End: 01-37-6099rpyk 1 tablet by mouth once daily End: 65-80-1492cbiz 1 tablet by mouth every twenty-four hours in the morning Janumet XR 100-1000 MG per 24 hr tablet Take 1 tablet by mouth in the morning. 12/01/2023 DiscontinuedOzempic 1 mg/dose (4 mg/3 mL) pen injector (3 sources)Start: 05-18-2023 End: 38-42-8943zgofga 1 mg by subcutaneous injection every weekOzempic 1 mg/dose (4 mg/3 mL) pen injector Inject 1 mg under the skin 1 (one) time per week. 05/18/2023 11/09/2024 Discontinued (Therapy completed)Start: 18-31-4515vuxrrg 1 mg by subcutaneous injection every weekOzempic 1 mg/dose (4 mg/3 mL) pen injector Inject 1 mg under the skin 1 (one) time per week. 05/18/2023 Activepen needle 33G x 4 mm misc (14 sources)Start: 50-75-1061sqp needle 33G x 4 mm misc Indications: Type 2 diabetes mell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, without long-term current use of insulin (HCC) Injections subcutaneous daily 100 each 3 01/18/2024 ActiveStart: 23-13-4950tkp needle 33G x 4 mm misc Indications: Type 2 diabetes mell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, without long-term current use of insulin (HCC) ([facility]) Injections subcutaneous daily 100 each 3 01/18/2024 Activerivaroxaban 20 mg oral tablet (12 sources)Factor Xa InhibitorStart: 12-08-2022 End: 40-73-5432msvfisiywejw calcium 40 mg oral tablet (20 sources)HMG-CoA Reductase InhibitorStart: 40-85-1436qzil 1 tablet by mouth once dailyrosuvastatin (Crestor) 40 mg tablet Take 1 tablet (40 mg) by mouth once daily. 11/11/2022 Activesacubitril 24 mg / valsartan 26 mg oral tablet (15 sources)Angiotensin 2 Receptor BlockerStart: 12-28-2022 End: 70-58-6907fscp 1 tablet by mouth once daily End: 87-83-8016Hxlntqinro-Valsartan (ENTRESTO PO) Take by mouth 12/01/2023 DiscontinuedSacubitril-Valsartan (ENTRESTO PO) Take by mouth 0 Active Completed/Discontinued Medications MedicationDrug Class(es)DatesSig (Normalized)Sig (Original)5 ml bupivacaine hydrochloride 5 mg/ml injection (2 sources)Amide Local AnestheticStart: 04-08-2023 End: 81-11-5980gjhyiifryla PF (Marcaine) 0.5 % injection 0.5 mLdoxycycline monohydrate 100 mg oral capsule (2 sources)Tetracycline-class DrugStart: 05-12-2022 End: 24-44-0532zrcj 1 capsule by mouth twice dailydoxycycline (Monodox) 100 mg capsule Take 1 capsule (100 mg) by mouth 2 times a day. 05/12/2022 07/24/2023 Discontinued (Therapy completed)3 ml insulin glargine 100 unt/ml pen injector (2 sources)Insulin AnalogStart: 01-18-2024 End: 96-96-3684dndkydl glargine (Lantus SoloStar) 100 UNIT/ML pen Indications: Type 2 diabetes mellitus with hhvcb6d chronic kidney disease, without long-term current use of insulin (HCC) ([facility]) Inject 15 Unitsunder the skin Daily 15 mL 3 01/18/2024 01/18/2024 Discontinuedlosartan potassium 25 mg oral tablet (1 source)Angiotensin 2 Receptor BlockerStart: 06-12-2022 End: 47-83-3203cvtf 1 tablet by mouth once daily before mealtimelosartan (Cozaar) 25 mg tablet Take 1 tablet (25 mg) by mouth once daily in the morning. Take before meals. 0 06/12/2022 01/14/2023 Discontinued (Discontinued by another clinician)meloxicam 15 mg oral tablet (2 sources)Nonsteroidal Anti-inflammatory Drug End: 77-00-1001mzrgmtypo (Mobic) 15 MG tablet 1 (one) time each day at the same time 12/03/2023 Discontinued1 ml methylPREDNISolone acetate 40 mg/ml injection (2 sources)CorticosteroidStart: 04-08-2023 End: 72-99-9567dqzpvwNSMQCCJatsao acetate (DEPO-Medrol) injection 40 mgOzempic, 1 MG/DOSE, 4 MG/3ML solution pen-injector (2 sources)Start: 05-18-2023 End: 70-82-5774fnonpo 1 mg by subcutaneous injection every weekOzempic, 1 MG/DOSE, 4 MG/3ML solution pen-injector Inject 1 mg under the skin 1 (one) time per week05/18/2023 12/03/2023 DiscontinuedSemaglutide-Weight Management 0.5 MG/0.5ML solution auto-injector (2 sources) End: 21-56-2889Vumeqzccakc-Weight Management 0.5 MG/0.5ML solution auto-injector Inject 0.6 mg under the skin 12/03/2023 Discontinued Problems Active Problems Problem ClassificationProblemDateDocumented DateEpisodic/ChronicAcute and unspecified renal failure (9 sources)Acute renal failure syndrome; Translations: [Acute kidney failure, unspecified]56-55-8791UruwpwvnGbmqeme on above:Problem List clean-up per request of Phys. EHR CmteCardiac dysrhythmias (4 sources)Paroxysmal atrial fibrillation; Translations: [Paroxysmal atrial fibrillation]Onset: 089400-99-0315LjbyofqDzximho dysrhythmias (14 sources)Bradycardia; Translations: [Bradycardia, unspecified]12-31-2022 EpisodicComment on above:Problem List clean-up per request of Phys. EHR Cmte Conduction disorders (20 sources)Mobitz type II atrioventricular block; Translations: [Atrioventricular block, second degree]Onset: 865872-45-8078ThtmtqiKurnseb on above:Problem List clean-up per request of Phys. EHR CmteCongestive heart failure; nonhypertensive (4 sources)Chronic diastolic (congestive) heart failure; Translations: [CHRONIC DIASTOLIC HEART FAILURE]Onset: 06-54-6668ZnuzfpaLjgwvhus mellitus with complications (20 sources)Type 2 diabetes mellitus with hyperglycemia; Translations: [Type 2 diabetes mellitus with diabetic chronic kidney disease]Onset: 10-09-2021 Resolved: 515386-68-6126LkcewsdTectpjpy mellitus without complication (20 sources)Diabetes mellitus; Translations: [Type 2 diabetes mellitus without complications]Onset: 236848-48-6692XvaenagFhkgago on above:Problem List clean-up per request of Phys. EHR CmteDisorders of lipid metabolism (20 sources)Mixed hyperlipidemia; Translations: [Mixed hyperlipidemia]Onset: 051926-95-6306OjpapbwOptqqqjry hypertension (20 sources)Hypertensive disorder; Translations: [Essential (primary) hypertension]Onset: 914412-24-8872CyadunjTixicbb on above:Problem List clean-up per request of Phys. EHR CmteHeart valve disorders (4 sources)Rheumatic tricuspid insufficiency; Translations: [Diseases of tricuspid valve]Onset: 208515-03-8916BwknovtExzgbqihijqn with complications and secondary hypertension (1 source)Hypertensive chronic kidney disease with stage 1 through stage 4 chronic kidney disease, or unspecified chronic kidney disease; Translations: [HTN CKD W/STAGE 1-4 CKD/UNS CKD]Onset: 93-19-1284CdzexqlUxxmxft (2 sources)Pain in toe; Translations: [Tinea unguium]82-60-0357Brepuika Osteoarthritis (20 sources)Arthritis of right acromioclavicular joint; Translations: [Primary osteoarthritis, right shoulder]Onset: 519257-97-0391CgparnlBjhhl aftercare (1 source)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; Translations: [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]Onset: 37-54-8977SuwutcqbRnamg aftercare (1 source)Taking high risk medication; Translations: [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]61-63-1451KcayjamzAfwru circulatory disease (1 source)History of cardiomyopathy; Translations: [Personal history of other diseases of the circulatory system]45-61-3886FnbsucaiHiklb non-traumatic joint disorders (3 sources)Rotator cuff arthropathy of right shoulder; Translations: [Other specific arthropathies, not elsewhere classified, right shoulder]04-08-2023 ChronicOther non-traumatic joint disorders (1 source)Pain in right shoulder; Translations: [Pain in joint, shoulder region] 69-20-0219GinuaviyPgjee nutritional; endocrine; and metabolic disorders (6 sources)Obese class I; Translations: [Obesity, unspecified]Onset: 01-14-2023 23-87-2820RpraateEbeup nutritional; endocrine; and metabolic disorders (4 sources)Body mass index 30+ - obesity; Translations: [Body mass index (BMI) 30.0-30.9, adult]Onset: 281731-01-7253JmdlwiuOqcrd nutritional; endocrine; and metabolic disorders (1 source)Overweight; Translations: [Overweight]02-65-0409NhxglenrFzhd-; endo-; and myocarditis; cardiomyopathy (except that caused by tuberculosis or sexually transmitted disease) (20 sources)Cardiomyopathy; Translations: [Other cardiomyopathies]Onset: 829785-97-3559MngefrkSihevmfd codes; unclassified (4 sources)Never smoked tobacco; Translations: [Other specified health status] Onset: 279801-92-8656YrdrxpdhZgrppbqa codes; unclassified (2 sources)Other specified health status; Translations: [Other specified health status]Onset: 34-15-8072PnxttpynUsevsutrfasu (1 source)CHRN KIDNEY DISEASE STG 3 UNSP; Translations: [CHRN KIDNEY DISEASE STG 3 UNSP]Onset: 10-22-8732Lctfdkcustbo (1 source)Obesity, class 1; Translations: [Obesity, class 1]Onset: 01-14-2023 Past or Other Problems Problem ClassificationProblemDateDocumented DateEpisodic/ChronicOther nutritional; endocrine; and metabolic disorders (3 sources)Overweight in adulthood with body mass index of 25 or more but less than 30; Translations: [Body mass index (BMI) 28.0-28.9, adult]Onset: 03-09-2024 19-23-6763OslnbeiyBdfno nutritional; endocrine; and metabolic disorders (2 sources)Body mass index (BMI) 28.0-28.9, adult; Translations: [Body mass index (BMI) 28.0-28.9, adult]Onset: 87-05-0389ZdqvfvjeFtfatukmq; thrombophlebitis and thromboembolism (20 sources)Deep venous thrombosis; Translations: [Acute embolism and thrombosis of unspecified deep veins of unspecified lower extremity]Onset: 01-14-2023 03-00-1287VsqfzowrGejsqojvqwmz (4 sources)Onset: 01-14-2023 Resolved: 942208-70-5390Sbgkefkvzjoy (1 source)Obesity, class 1; Translations: [Obesity, class 1]Onset: 11-09-2024 Results Test NameValueInterpretationReference QxnsfPbjiohieVcM8c (Bld) [Mass fraction]on 74-54-5407Fqdsbaoxuqrarw and review of laboratory resultsNov[facility] HealthcareLaboratory - Hematology and Cell countson 63-42-2154TjM0q (Bld) [Mass fraction]8.7 %[facility]Hb[facility] (B[facility]) [Mass fraction]on 07-19-2024 Interpretation and review of laboratory resultsAbPending sale to [facility] HealthLaboratory - Hematology and Cell countson 21-33-8665AcQ6n (Bld) [Mass fraction]9 %[facility] HospitalHbA1c (Bld) [Mass fraction]on 04-18-2024 Interpretation and review of laboratory resultsMayo Clinic Health System Franc[facility] HealthcareLaboratory - Hematology and Cell countson 70-79-0997HwV0j (Bld) [Mass fraction]8.1 %[facility] HospitalECG 12 Leadon 30-99-7431TBV reveals atrial sensing and ventricular pacing rhythm, abnormal ECGCPACSFisher-[facility] Work Phone: HbA1c (Bld) [Mass fraction]on 80-67-0287Elrgxurgsgekye and review of laboratory resultsMayo Clinic Health System Francisc[facility] HealthcareLaboratory - Hematology and Cell countson 45-68-8668KnF3f (Bld) [Mass fraction]10.4 %[facility] HealthcareL Inj/Asp: R subacromial bursaon 65-42-0903Wgoayja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 Pt given injection Right Shoulder SA space with 2ml of 2 % lidocaine (Code 00224 RT) Procedure, treatment alternatives, risks and benefits explained, specific risks discussed. Consent was given by the patient. formerly [facility] Inj/Asp: R acromioclavicularon 84-86-8482YgglqkvTODD Driver 04/08/2023 1:57 PM Mickey Inj/Asp: R acromioclavicular on 04/08/2023 1:54 PM [...] and draped in the usual sterile fashion. [facility] CareBasophils Auto (Bld) [#/Vol]Ordered By: Jarred Cline on 22-65-9771Mitsbpmif (Bld) [#/Vol]0.0 10*3/uL0.0-0.2FMiddletown HospitalBasophils/100 WBC Auto (Bld)Ordered By: Jarred Cline on 12-31-2022 Basophils/100 WBC (Bld)0.6 %.[facility] CenterCalcium [Mass/volume] in Serum or PlasmaOrdered By: Jarred Cline on 90-93-4429Ibinyay [Mass/Vol]8.9 mg/dL8.6-10.3FMiddletown HospitalCarbon dioxide, total [Moles/volume] in Serum or PlasmaOrdered By: Jarred Cline on 48-27-2275XJ7 [Moles/Vol]22.9 mmol/L21.0-31.0[facility] CenterChloride [Moles/volume] in Serum or PlasmaOrdered By: Jarred Cline on 15-82-5808Ejswjgym [Moles/Vol]106 mmol/V46-798EppyjbviiTrumbull Regional Medical CenterCreatinine [Mass/volume] in Serum or PlasmaOrdered By: Jarred Cline on 35-34-9628Kfdqwanwpg [Mass/Vol]1.20 mg/dL0.70-1.30[facility] Medical CenterEosinophils Auto (Bld) [#/Vol]Ordered By: Jarred Cline on 11-00-2477Wraztbrhirn (Bld) [#/Vol]0.1 10*3/uL0.0-0.45[facility] Medical CenterEosinophils/100 WBC Auto (Bld) Ordered By: Jarred Cline on 05-42-3980Tbjxemgyyvr/100 WBC (Bld)1.6 %.[facility] CenterErythrocyte distribution width Auto (RBC) [Ratio]Ordered By: Jarred Cline on 40-22-1423Kyozihtargz distribution width (RBC) [Ratio]14.9 % 12.0-14.8[facility] CenterGlucose [Mass/volume] in Serum or PlasmaOrdered By: Jarred Cline on 45-87-5456Esukvod [Mass/Vol]175 mg/aE02-295 [facility] CenterComment on above:ADA recommended reference rangeRandom Glucose Reference Range is dependent on time and content of last meal. Glucose of more than 200 mg/dL in a nonstressed, ambulatory subject supports the diagnosisof Diabetes Mellitus.Hematocrit Auto (Bld) [Volume fraction]Ordered By: Jarred Cline on 65-90-5364Sjolldhdxm (Bld) [Volume fraction]39.1 %38.8-50.0[facility] CenterHemoglobin [Mass/volume] in BloodOrdered By: Jarred Cline on 27-84-1484Levqdybaek (Bld) [Mass/Vol]13.0 g/dL13.0-17.0[facility] CenterLeukocytes [#/volume] corrected for nucleated erythrocytes in Blood by Automated coun Ordered By: Jarred Cline on 65-50-2742YYZ corrected for nucl RBC Auto (Bld) [#/Vol]6.7 10*3/uL4.1-10.5FMiddletown HospitalLymphocytes Auto (Bld) [#/Vol]Ordered By: Jarred Cline on 67-50-7495Fmtuzqrlacj (Bld) [#/Vol]1.9 10*3/uL1.00-4.8[facility] CenterLymphocytes/100 WBC Auto (Bld) Ordered By: Jarred Cline on 81-78-5141Degweyhpyws/100 WBC (Bld)27.7 %.[facility] CenterH Auto (RBC) [Entitic mass]Ordered By: Jarred Cline on 36-72-1829FRC (RBC) [Entitic mass]30.5 pg27.5-35.2FMiddletown HospitalMCHC Auto (RBC) [Mass/Vol]Ordered By: Jarred Cline on 67-87-0176WYKL (RBC) [Mass/Vol]33.3 g/dL32.5-35.6FMiddletown HospitalMCV Auto (RBC) [Entitic vol]Ordered By: Jarred Cline on 53-64-0475MSD (RBC) [Entitic vol]91.5 fL83.5-101[facility] CenterMagnesium [Mass/volume] in Serum or PlasmaOrdered By: Jarred Cline on 70-79-2558Osmxznuex [Mass/Vol]2.1 mg/dL1.9-2.7 [facility] CenterMonocytes Auto (Bld) [#/Vol]Ordered By: Jarred Cline on 23-38-3200Wcfketjyl (Bld) [#/Vol]0.6 10*3/uL0.0-0.8[facility] CenterMonocytes/100 WBC Auto (Bld)Ordered By: Jarred Cline on 12-31-2022 Monocytes/100 WBC (Bld)8.9 %.[facility] CenterNeutrophils Auto (Bld) [#/Vol]Ordered By: Jarred Cline on 89-09-5725Vvurcjxzjze (Bld) [#/Vol]4.1 10*3/uL1.8-7.7FMiddletown HospitalNeutrophils/100 WBC Auto (Bld) Ordered By: Jarred Cline on 01-73-8679Faqlcrnmfdw/100 WBC (Bld)61.2 %.[facility] CenterNo Panel InformationOrdered By: Jarred Cline on 42-89-7415Gdyztknkm GFR (CKD-EPI)> 60.0 mL/MinTrumbull Regional Medical Center Pharmacy Creatinine Clearance (Chem48.99[facility] Nucleated erythrocytes [Presence] in Blood by Automated countOrdered By: Jarred Cline on 11-92-9886Synjzevwe RBC Auto Ql (Bld)0.0 /100{WBC}0-0.5FMiddletown HospitalPlatelet mean volume Auto (Bld) [Entitic vol]Ordered By: Jarred Cline on 97-88-2491Ayufifsq mean volume (Bld) [Entitic vol]7.2 fL6.6-10.1 [facility] CenterPlatelets Auto (Bld) [#/Vol]Ordered By: Jarred Cline on 35-81-0205Fmffgojjc (Bld) [#/Vol]148 10*3/eV924-450FafoymrgtTrumbull Regional Medical CenterPotassium [Moles/volume] in Serum or PlasmaOrdered By: Jarred Cline on 90-99-7090Tbdqwvdvp [Moles/Vol]4.1 mmol/L3.5-5.1FMiddletown HospitalRBC Auto (Bld) [#/Vol]Ordered By: Jarred Cline on 38-86-3667UAU (Bld) [#/Vol]4.27 10*6/uL3.90-5.60[facility] Hospitalerum or plasma anion gap determinationOrdered By: Jarred Cline on 58-98-4027Bciiw gap [Moles/Vol]12.2 mmol/L6.0-15.0[facility] Hospitalodium [Moles/volume] in Serum or PlasmaOrdered By: Jarred Cline on 73-37-1523Yswexb [Moles/Vol]137 mmol/F454-886YjurhufihTrumbull Regional Medical CenterUrea nitrogen [Mass/volume] in Serum or PlasmaOrdered By: Jarred Cline on 97-76-8763Xnln nitrogen [Mass/Vol]23 mg/dL7-25[facility] Medical CenterWBC Auto (Bld) [#/Vol]Ordered By: Jarred Cline on 75-43-4395DFX (Bld) [#/Vol]6.7 10*3/uL 4.1-10.5FMiddletown HospitalActivated partial thromboplastin time (aPTT) in platelet poor plasma by coagulation aOrdered By: Henrry Purvis on 67-37-6949jZPL Coag (PPP) [Time]30.2 s25.1-36.5FMiddletown Hospital Comment on above:A hematocrit value greater than 55% may lead to inaccurate results in coagulation testing. Patientshaving hematocrit values >55% require a special collection tube for coagulation studies. Please contact the laboratory at [phone] for redraw instructions.Glucose Glucometer (BldC) [Mass/Vol] Ordered By: Katie Osborne on [id number] [Mass/Vol]183 mg/dLTrumbull Regional Medical CenterComment on above:Random Glucose Reference Range is dependent on time and content of last meal. Glucose of more than 200 mg/dL in a nonstressed, ambulatory subject supports the diagnosis of Diabetes Mellitus.INR in Platelet poor plasma by Coagulation assayOrdered By: Henrry Purvis on [id number] Coag (PPP) [Relative time]1.1 {INR}[facility] CenterComment on above:INR Therapeutic Range A) Pre- and Peroperative OAT started two weeks before surgery. NOT HIP SURGERY: 1.5 - 2.5 HIP SURGERY: 2 - 3B) Primary and secondary prevention of venous THROMBOSIS: 2 - 3C) Active venous thrombosis, pulmonary embolismand prevention of recurrent venous thrombosis: 2 - 3D) Prevention of arterial thromboembolismincluding patients with mechanical heart valves: 3 - 4.5Prothrombin time (PT)Ordered By: Henrry Purvis on [id number] Coag (PPP) [Time]13.1 s9.0-12.9[facility] Comment on above:A hematocrit value greater than 55% may lead to inaccurate results in coagulation testing. Patientshaving hematocrit values >55% require a special collection tube for coagulation studies. Please contact the laboratory at [phone] for redraw instructions.Cholesterol [Mass/volume] in Serum or PlasmaOrdered By: Jarred Cline on 05-54-2016Xjyjztjvvqi [Mass/Vol]96 mg/dL 140-200[facility] CenterComment on above:Chol less than 200 mg/dl low riskChol 201-239 mg/dl borderline riskChol 240 mg/dl and greater high riskCholesterol in LDL Calc [Mass/Vol]Ordered By: Jarred Cline on 12-29-2022 Cholesterol in LDL [Mass/Vol]40 mg/dL0-100[facility] Comment on above:LDL ATP III CLASSIFICATIONLDL less than 100 mg/dL OptimalLDL 100-129 mg/dL Near or above gtjjiqlDVH995-096 mg/dL Borderline highLDL 160-189 mg/dL HighLDL greater than 189 mg/dL Very highCholesterol in VLDL Calc [Mass/Vol]Ordered By: Jarred Cline on 16-08-1080Xvdkjzxbdtt in VLDL [Mass/Vol]26 mg/dLOhioHealth Shelby Hospitalerum or plasma high density lipoprotein (HDL) cholesterol measurementOrdered By: Jarred Cline on 64-35-0049Yasatewdssn in HDL [Mass/Vol]30 mg/iM02-75TaqrgkimvTrumbull Regional Medical CenterComment on above: HDL CHOL ATP-III CLASSIFICATION Cardiovascular RiskHDL > or equal to 60 mg/dL LOWHDL < 40 mg/dL HIGHSerum or plasma total cholesterol/high density lipoprotein (HDL) cholesterol mass ratOrdered By: Jarred Cline on 12-29-2022 Cholesterol.total/Cholesterol in HDL [Mass ratio]3.2 {ratio}<5.0[facility] Medical CenterTriglyceride [Mass/volume] in Serum or PlasmaOrdered By: Jarred Cline on 11-35-2063Jeoliizjawqw [Mass/Vol]132 mg/dL0-149[facility] CenterComment on above:TRIG ATP III CLASSIFICATIONTRIG less than 150 mg/dL NormalTRIG 150-199 mg/dL Borderline highTRIG 200-500 mg/dL High TRIG greater than 500 mg/dL Very highStandard traceable to the Center for Disease Conrtrol and Prevention (CDC) test method.Glucose mean value [Mass/volume] in Blood Estimated from glycated hemoglobinOrdered By: Jarred Cline on 95-02-2243Mpylkpx glucose Estimated from glycated hemoglobin (Bld) [Mass/Vol]212 mg/dLTrumbull Regional Medical CenterHemoglobin A1c percentage Ordered By: Jarred Cline on 99-74-3373OaK2r (Bld) [Mass fraction]9.0 %4.3-5.6 [facility] CenterComment on above:Increased risk for diabetes: 5.7 - 6.4diabetes: >6.4glycemic control for adults with diabetes: <7.0BNPon 58-67-1203Xpwrhydcwzr peptide B (Bld) [Mass/Vol]74.0 pg/mLNormal<=1,800.0The [facility] HospitalComment on above:Performed By: #### ELEC, BUN, BNP, LIVER, CREA #### [facility] [address] [place] [address] Dr. Brissa Hayden 66-12-8907Hsoo nitrogen [Mass/Vol]41.0 mg/dLCritically high 7.0-18.0The [facility] HospitalComment on above:Performed By: #### ELEC, BUN, BNP, LIVER, CREA #### [facility] [address] [place] [address] Dr. Brissa Hay AUTO DIFFon [id number] #0.1 103/ulNormal0.0-0.1[facility] HospitalComment on above:Performed By: #### ELEC, BUN, BNP, LIVER, CREA #### [facility] [address] [place] [address] Dr. Brissa Pompasophils/100 WBC (Bld)0.8 %Normal0.2-2.0[facility] Comment on above:Performed By: #### ELEC, BUN, BNP, LIVER, CREA #### [facility] [address] [place] [address] Dr. Brissa Tracy #0.1 103/ulNormal0.0-0.7The [facility] HospitalComment on above: Performed By: #### ELEC, BUN, BNP, LIVER, CREA #### [facility] [address] [place] [address] Dr. Brissa Hoytosinophils/100 WBC (Bld)1.1 %Normal0.9-7.0The [facility] Comment on above:Performed By: #### ELEC, BUN, BNP, LIVER, CREA #### [facility] [address] [place] [address] Dr. Brissa Hoytrythrocyte distribution width (RBC) [Ratio]14.1 %Wmtnpf63.0-15.0 The [facility] HospitalComment on above:Performed By: #### ELEC, BUN, BNP, LIVER, CREA #### [facility] [address] [place] [address] Dr. Brissa MaHematocrit (Bld) [Volume fraction]47.8 %Gazqcp85.0-54.0The [facility] HospitalComment on above:Performed By: #### ELEC, BUN, BNP, LIVER, CREA #### [facility] [address] [place] [address] Dr. Brissa MaHemoglobin (Bld) [Mass/Vol]15.3 g/vFKpyjlo29.0-18.0The [facility] HospitalComment on above:Performed By: #### ELEC, BUN, BNP, LIVER, CREA #### [facility] [address] [place] [address] Dr. Brissa Lay #0.17 10e3/ulCritically high0.00-0.03The [facility] Comment on above:Performed By: #### ELEC, BUN, BNP, LIVER, CREA #### [facility] [address] [place] [address] Dr. Brissa Lay %1.7 %Critically high0.0-0.5The [facility] HospitalComment on above:Performed By: #### ELEC, BUN, BNP, LIVER, CREA #### [facility] [address] [place] [address] Dr. Brissa Ogden #3.8 103/ulNormal1.2-3.8The [facility] HospitalComment on above:Performed By: #### ELEC, BUN, BNP, LIVER, CREA #### [facility] [address] [place] [address] Dr. Brissa Hessmphocytes/100 WBC (Bld)38.4 %Bfgdmn11.5-60.0The [facility] HospitalComment on above:Performed By: #### ELEC, BUN, BNP, LIVER, CREA #### [facility] [address] [place] [address] Dr. Brissa Hawkins DIFF REQNONormalThe [facility] HospitalComment on above: Performed By: #### ELEC, BUN, BNP, LIVER, CREA #### [facility] [address] [place] [address] Dr. Brissa Elizabeth (RBC) [Entitic mass]30.2 gjCyoroo97.9-34.0The [facility] HospitalComment on above:Performed By: #### ELEC, BUN, BNP, LIVER, CREA #### [facility] [address] [place] [address] Dr. Brissa Elizabeth (RBC) [Mass/Vol]32.0 g/aDNhvcma13.9-35.2The [facility] HospitalComment on above:Performed By: #### ELEC, BUN, BNP, LIVER, CREA #### [facility] [address] [place] [address] Dr. Brissa Elizabeth (RBC) [Entitic vol]94.3 fLCritically high80.0-94.0The [facility] HospitalComment on above:Performed By: #### ELEC, BUN, BNP, LIVER, CREA #### [facility] [address] [place] [address] Dr. Brissa Kaye #0.7 103/ulNormal0.3-0.8The [facility] HospitalComment on above:Performed By: #### ELEC, BUN, BNP, LIVER, CREA #### [facility] [address] [place] [address] Dr. Brissa Reyocytes/100 WBC (Bld)7.4 %Normal1.7-12.0The [facility] Comment on above:Performed By: #### ELEC, BUN, BNP, LIVER, CREA #### [facility] [address] [place] [address] Dr. Brissa Barahona #5.0 103/ulNormal1.4-6.5The [facility]ul HospitalComment on above:Performed By: #### ELEC, BUN, BNP, LIVER, CREA #### [facility] [address] [place] [address] Dr. Brissa Sanchezutrophils/100 WBC (Bld)50.6 %Agslws12.0-75.0The [facility] on above:Performed By: #### ELEC, BUN, BNP, LIVER, CREA #### [facility] [address] [place] [address] Dr. Brissa MaPlatelet mean volume (Bld) [Entitic vol]9.0 fLCritically low 9.5-13.5The [facility] Hospitalment on above:Performed By: #### ELEC, BUN, BNP, LIVER, CREA #### [facility] [address] [place] [address] Dr. Brissa MaPLT205 103/agHbeazs204-566Iwi [facility] on above: Performed By: #### ELEC, BUN, BNP, LIVER, CREA #### [facility] [address] [place] [address] Dr. Brissa MaRBC5.07 106/ulNormal4.70-6.10The [facility] on above:Performed By: #### ELEC, BUN, BNP, LIVER, CREA #### [facility] [address] [place] [address] Dr. Brissa MaWBC9.9 103/ulNormal4.0-11.0The [facility] on above: Performed By: #### ELEC, BUN, BNP, LIVER, CREA #### [facility] [address] [place] [address] Dr. Brissa MaCREATININEon 64-53-7429Ufxvlvvgtz [Mass/Vol]1.60 mg/dLCritically high0.70-1.30The [facility] on above:Performed By: #### ELEC, BUN, BNP, LIVER, CREA #### [facility] [address] [place] [address] Dr. Brumfield ChangEGFR-AF XKWTSEOX79 mL/min/1.92k7Qeotvvgrad low>=60[facility] HospitalComment on above:Performed By: #### ELEC, BUN, BNP, LIVER, CREA #### [facility] [address] [place] [address] Dr. Brissa HoytGFR-NON AF OZTBIJKB81 mL/min/1.42h1Ufmtqlilsr low>=60The [facility] HospitalComment on above:Performed By: #### ELEC, BUN, BNP, LIVER, CREA #### [facility] [address] [address] [address] Brissa HoytLECTROLYTESon 13-03-9368Pzits gap [Moles/Vol]15.5 mmol/LNormal The [facility] HospitalComment on above:Performed By: #### ELEC, BUN, BNP, LIVER, CREA #### [facility] [address] [place] [address] Dr. Brissa MaChloride [Moles/Vol]102 mmol/BQjeogq22-824VrxHarrison Community Hospital Comment on above:Performed By: #### ELEC, BUN, BNP, LIVER, CREA #### [facility] [address] [place] [address] Dr. Brissa MaCO2 [Moles/Vol]25.5 mmol/YUojyan64.0-32.0[facility] Comment on above:Performed By: #### ELEC, BUN, BNP, LIVER, CREA #### [facility] [address] [place] [address] Dr. Brissa MaPotassium [Moles/Vol]5.0 mmol/LNormal3.5-5.1[facility] Comment on above:Performed By: #### ELEC, BUN, BNP, LIVER, CREA #### [facility] [address] [address] [address] Brissa MaSodium [Moles/Vol]138 mmol/OFirzkh608-766SoyHarrison Community Hospital Comment on above:Performed By: #### ELEC, BUN, BNP, LIVER, CREA #### [facility] [address] [place] [address] Dr. Brissa MaGLYCOHEMOGLOBIN A1Con 03-06-5743JGN RECOMMENDATIONSEE BELOWNormal The [facility] on above:Result Comment: ADA RECOMMENDED LIMIT 4.0 - 6.0 ADA THERAPEUTIC TARGET < 7.0 ACTION SUGGESTED > 7.0Performed By: #### A1C #### [facility] [address] [place] [address] Dr. Brissa MaGlucose [Mass/Vol]203 mg/dLNormalThe [facility] HospitalComchildren[facility] on above:Performed By: #### A1C #### [facility] [address] [place] [address] Dr. Brissa MaHbA1c (Bld) [Mass fraction]8.7 %Critically high4.5-6.2The [facility] on above:Performed By: #### A1C #### [facility] [address] [place] [address] Dr. Brissa Michelle PROFILEon 89-16-7134Omfnmoh [Mass/Vol]3.7 g/dLNormal3.4-5.0 [facility] on above:Performed By: #### ELEC, BUN, BNP, LIVER, CREA #### [facility] [address] [place] [address] Dr. Brissa MaAlbumin/Globulin [Mass ratio]1.0 {ratio}NormalThe [facility] on above:Performed By: #### ELEC, BUN, BNP, LIVER, CREA #### [facility] [address] [place] [address] Dr. Brissa Baxter [Catalytic activity/Vol]80 U/LSbdqyk40-087Woj [facility] on above:Performed By: #### ELEC, BUN, BNP, LIVER, CREA #### [facility] [address] [place] [address] Dr. Brissa Hand [Catalytic activity/Vol]16 U/LOcjxhl39-13Roc [facility] on above:Performed By: #### ELEC, BUN, BNP, LIVER, CREA #### [facility] [address] [place] [address] Dr. Brissa Gautam [Catalytic activity/Vol]18 U/XHlceiz03-64Lzm [facility] HospitalComment on above:Performed By: #### ELEC, BUN, BNP, LIVER, CREA #### [facility] [address] [place] [address] Dr. Brissa SanchezI, CONJUGATED0.1 mg/dLNormal0.0-0.2The [facility] Comment on above:Performed By: #### ELEC, BUN, BNP, LIVER, CREA #### [facility] [address] [place] [address] Dr. Brissa Sanchezirubin [Mass/Vol]0.7 mg/dLNormal0.2-1.0[facility] Comment on above:Performed By: #### ELEC, BUN, BNP, LIVER, CREA #### [facility] [address] [place] [address] Dr. Brissa MaGlobulin (S) [Mass/Vol]3.8 g/dLNormalThe [facility] HospitalComment on above:Performed By: #### ELEC, BUN, BNP, LIVER, CREA #### [facility] [address] [place] [address] Dr. Birssa MaProtein [Mass/Vol]7.5 g/dLNormal6.4-8.2[facility] Comment on above:Performed By: #### ELEC, BUN, BNP, LIVER, CREA #### [facility] [address] [place] [address] Dr. Brissa Batres 71-49-9899Pedblmjmvaa peptide B (Bld) [Mass/Vol]150.0 pg/mL Normal<=1,800.0The [facility] HospitalComment on above:Performed By: #### ELEC, BUN, BNP, LIVER, CREA #### [facility] [address] [place] [address] Dr. Brissa Hayden 11-14-5581Wwxr nitrogen [Mass/Vol]22.0 mg/dLCritically high 7.0-18.0The [facility] HospitalComment on above:Performed By: #### ELEC, BUN, BNP, LIVER, CREA #### [facility] [address] [place] [address] Dr. Brissa Hay AUTO DIFFon 89-94-9696LCQB #0.0 103/ulNormal0.0-0.1The [facility] HospitalComment on above:Performed By: #### ELEC, BUN, BNP, LIVER, CREA #### [facility] [address] [place] [address] Dr. Brissa MaBasophils/100 WBC (Bld)0.5 %Normal0.2-2.0The [facility] Comment on above:Performed By: #### ELEC, BUN, BNP, LIVER, CREA #### [facility] [address] [place] [address] Dr. Brissa HoytO #0.1 103/ulNormal0.0-0.7The [facility] HospitalComment on above: Performed By: #### ELEC, BUN, BNP, LIVER, CREA #### [facility] [address] [place] [address] Dr. Brissa Hoytosinophils/100 WBC (Bld)1.9 %Normal0.9-7.0The [facility] Comment on above:Performed By: #### ELEC, BUN, BNP, LIVER, CREA #### [facility] [address] [place] [address] Dr. Brissa Hoytrythrocyte distribution width (RBC) [Ratio]14.1 %Wgodkb60.0-15.0 The [facility] HospitalComment on above:Performed By: #### ELEC, BUN, BNP, LIVER, CREA #### [facility] [address] [place] [address] Dr. Brissa MaHematocrit (Bld) [Volume fraction]43.1 %Ejvxcp72.0-54.0The [facility] HospitalComment on above:Performed By: #### ELEC, BUN, BNP, LIVER, CREA #### [facility] [address] [place] [address] Dr. Brissa MaHemoglobin (Bld) [Mass/Vol]13.7 g/dLCritically low14.0-18.0The [facility] HospitalComment on above:Performed By: #### ELEC, BUN, BNP, LIVER, CREA #### [facility] [address] [address] [address] Brissa Lay #0.05 10e3/ulCritically high0.00-0.03The [facility] Comment on above:Performed By: #### ELEC, BUN, BNP, LIVER, CREA #### [facility] [address] [place] [address] Dr. Brissa Lay %0.8 %Critically high0.0-0.5The [facility] HospitalComment on above:Performed By: #### ELEC, BUN, BNP, LIVER, CREA #### [facility] [address] [place] [address] Dr. Brissa Ogden #2.7 103/ulNormal1.2-3.8The [facility] HospitalComment on above:Performed By: #### ELEC, BUN, BNP, LIVER, CREA #### [facility] [address] [place] [address] Dr. Brissa Fischerhocytes/100 WBC (Bld)42.1 %Olbuic36.5-60.0The [facility]ment on above:Performed By: #### ELEC, BUN, BNP, LIVER, CREA #### [facility] [address] [place] [address] Dr. Brissa HydeUAL DIFF REQNONormalThe [facility] HospitalComment on above: Performed By: #### ELEC, BUN, BNP, LIVER, CREA #### [facility] [address] [place] [address] Dr. Brissa Elizabeth (RBC) [Entitic mass]29.8 teVxhwhf97.9-34.0The [facility] HospitalComment on above:Performed By: #### ELEC, BUN, BNP, LIVER, CREA #### [facility] [address] [place] [address] Dr. Brissa Elizabeth (RBC) [Mass/Vol]31.8 g/jGVhvgjl47.9-35.2The [facility] HospitalComment on above:Performed By: #### ELEC, BUN, BNP, LIVER, CREA #### [facility] [address] [place] [address] Dr. Brissa Howard (RBC) [Entitic vol]93.9 kQUoxeto19.0-94.0The [facility] HospitalComment on above:Performed By: #### ELEC, BUN, BNP, LIVER, CREA #### [facility] [address] [place] [address] Dr. Brissa Kaye #0.5 103/ulNormal0.3-0.8The [facility] HospitalComment on above:Performed By: #### ELEC, BUN, BNP, LIVER, CREA #### [facility] [address] [place] [address] Dr. Brissa Reyocytes/100 WBC (Bld)7.8 %Normal1.7-12.0The [facility] Comment on above:Performed By: #### ELEC, BUN, BNP, LIVER, CREA #### [facility] [address] [place] [address] Dr. Brissa Barahona #3.0 103/ulNormal1.4-6.5The [facility] HospitalComment on above:Performed By: #### ELEC, BUN, BNP, LIVER, CREA #### [facility] [address] [place] [address] Dr. Brissa Sanchezutrophils/100 WBC (Bld)46.9 %Mggmji32.0-75.0The [facility] HospitalComment on above:Performed By: #### ELEC, BUN, BNP, LIVER, CREA #### [facility] [address] [place] [address] Dr. Brissa Frye mean volume (Bld) [Entitic vol]9.2 fLCritically low 9.5-13.5The [facility]ment on above:Performed By: #### ELEC, BUN, BNP, LIVER, CREA #### [facility] [address] [place] [address] Dr. Brissa MaPLT163 103/jmIonjlx041-089ZdjProMedica Flower Hospital on above: Performed By: #### ELEC, BUN, BNP, LIVER, CREA #### [facility] [address] [place] [address] Dr. Brissa MaRBC4.59 106/ulCritically low4.70-6.10The [facility] on above:Performed By: #### ELEC, BUN, BNP, LIVER, CREA #### [facility] [address] [place] [address] Dr. Brissa MaWBC6.4 103/ulNormal4.0-11.0The [facility] on above: Performed By: #### ELEC, BUN, BNP, LIVER, CREA #### [facility] [address] [place] [address] Dr. Brissa MaCREATININEon 08-22-2171Syvlktrhxb [Mass/Vol]1.47 mg/dLCritically high0.70-1.30The [facility] on above:Performed By: #### ELEC, BUN, BNP, LIVER, CREA #### [facility] [address] [place] [address] Dr. Brumfield ChangEGFR-AF FJSLUQAQ75 mL/min/1.94c3Akmxgtacya low>=60[facility] on above:Performed By: #### ELEC, BUN, BNP, LIVER, CREA #### [facility] [address] [place] [address] Dr. Brissa HoytGFR-NON AF RGGMLUUX08 mL/min/1.40t3Xejuvqujbp low>=60The [facility] on above:Performed By: #### ELEC, BUN, BNP, LIVER, CREA #### [facility] [address] [place] [address] Dr. Brissa HoytLECTROLYTESon 32-80-7312Bdclv gap [Moles/Vol]10.1 mmol/LNormal [facility] on above:Performed By: #### ELEC, BUN, BNP, LIVER, CREA #### [facility] [address] [place] [address] Dr. Brissa MaChloride [Moles/Vol]106 mmol/OJrxpmk93-309Emi [facility] Comment on above:Performed By: #### ELEC, BUN, BNP, LIVER, CREA #### [facility] [address] [address] [address] Brissa MaCO2 [Moles/Vol]28.4 mmol/IQzhtmv53.0-32.0The [facility] Comment on above:Performed By: #### ELEC, BUN, BNP, LIVER, CREA #### [facility] [address] [address] [address] Brsisa MaPotassium [Moles/Vol]4.5 mmol/LNormal3.5-5.1The [facility] Comment on above:Performed By: #### ELEC, BUN, BNP, LIVER, CREA #### [facility] [address] [address] [address] Brissa MaSodium [Moles/Vol]140 mmol/QPgzyac387-071Tbj [facility] Comment on above:Performed By: #### ELEC, BUN, BNP, LIVER, CREA #### [facility] [address] [address] [address] Brissa MaGLYCOHEMOGLOBIN A1Con [id number] RECOMMENDATIONSEE BELOWNoSouthview Medical CenterComment on above:Result Comment: ADA RECOMMENDED LIMIT 4.0 - 6.0 ADA THERAPEUTIC TARGET < 7.0 ACTION SUGGESTED > 7.0Performed By: #### A1C #### [facility] [address] [place] [address] Dr. Brissa MaGlucose [Mass/Vol]223 mg/dLNormalThProtestant HospitalComment on above:Performed By: #### A1C #### [facility] [address] [address] [address] Brissa MaHbA1c (Bld) [Mass fraction]9.4 %Critically high4.5-6.2[facility] HospitalComment on above:Performed By: #### A1C #### [facility] [address] [address] [address] Brissa MaLIMARILIA PROFILEon 53-36-6922Wnrbmdo [Mass/Vol]3.6 g/dLNormal3.4-5.0 The [facility] Hospitalment on above:Performed By: #### ELEC, BUN, BNP, LIVER, CREA #### [facility] [address] [place] [address] Dr. Brissa MaAlbumin/Globulin [Mass ratio]1.0 {ratio}NormalThe [facility] on above:Performed By: #### ELEC, BUN, BNP, LIVER, CREA #### [facility] [address] [place] [address] Dr. Brissa Baxter [Catalytic activity/Vol]86 U/GIlriqh56-580Hqo [facility] Hospitalment on above:Performed By: #### ELEC, BUN, BNP, LIVER, CREA #### [facility] [address] [place] [address] Dr. Brissa Hand [Catalytic activity/Vol]18 U/RXsksqo42-32Zsm [facility] Hospitalment on above:Performed By: #### ELEC, BUN, BNP, LIVER, CREA #### [facility] [address] [place] [address] Dr. Brissa Gautam [Catalytic activity/Vol]20 U/SVofpdy27-46Qad [facility] on above:Performed By: #### ELEC, BUN, BNP, LIVER, CREA #### [facility] [address] [place] [address] Dr. Brissa Ramirez, CONJUGATED0.1 mg/dLNormal0.0-0.2The [facility] Comment on above:Performed By: #### ELEC, BUN, BNP, LIVER, CREA #### [facility] [address] [place] [address] Dr. Brissa Castro [Mass/Vol]0.4 mg/dLNormal0.2-1.0[facility] Comment on above:Performed By: #### ELEC, BUN, BNP, LIVER, CREA #### [facility] Laboratory [address] [place] [address] Dr. Brissa MaGlobulin (S) [Mass/Vol]3.7 g/dLNormalThe [facility] HospitalComment on above:Performed By: #### ELEC, BUN, BNP, LIVER, CREA #### [facility] [address] [place] [address] Dr. Brissa MaProtein [Mass/Vol]7.3 g/dLNormal6.4-8.2The [facility] Comment on above:Performed By: #### ELEC, BUN, BNP, LIVER, CREA #### [facility] [address] [place] [address] Dr. Brissa Hayden 80-74-6904Dbwa nitrogen [Mass/Vol]25.0 mg/dLCritically high 7.0-18.0The [facility] HospitalComment on above:Performed By: #### ELEC, BUN, BNP, LIVER, CREA #### [facility] [address] [place] [address] Dr. Brissa Hay AUTO DIFFon [id number] #0.1 103/ulNormal0.0-0.1The [facility] HospitalComment on above:Performed By: #### CBC #### [facility] [address] [place] [address] Dr. Brissa MaBasophils/100 WBC (Bld)0.7 %Normal0.2-2.0[facility] Comment on above:Performed By: #### CBC #### [facility] [address] [place] [address] Dr. Brissa Tracy #0.1 103/ulNormal0.0-0.7The [facility] HospitalComment on above: Performed By: #### CBC #### [facility] [address] [place] [address] Dr. Brissa Hoytosinophils/100 WBC (Bld)1.8 %Normal0.9-7.0The [facility] Comment on above:Performed By: #### CBC #### [facility] [address] [place] [address] Dr. Brissa Hoytrythrocyte distribution width (RBC) [Ratio]14.1 %Pzuneo35.0-15.0 The [facility] HospitalComment on above:Performed By: #### CBC #### [facility] [address] [address] [address] Brissa MaHematocrit (Bld) [Volume fraction]41.9 %Critically low42.0-54.0 The [facility] HospitalComment on above:Performed By: #### CBC #### [facility] [address] [place] [address] Dr. Brissa MaHemoglobin (Bld) [Mass/Vol]13.3 g/dLCritically low14.0-18.0The [facility] HospitalComment on above:Performed By: #### CBC #### [facility] [address] [place] [address] Dr. Brissa Lay #0.06 10e3/ulCritically high0.00-0.03The [facility] Comment on above:Performed By: #### CBC #### [facility] [address] [place] [address] Dr. Brissa Lay %0.9 %Critically high0.0-0.5The [facility] HospitalComment on above:Performed By: #### CBC #### [facility] [address] [place] [address] Dr. Brissa Ogden #2.6 103/ulNormal1.2-3.8The [facility] HospitalComment on above:Performed By: #### CBC #### [facility] [address] [place] [address] Dr. Brissa Fischerhocytes/100 WBC (Bld)37.8 %Xuklvz47.5-60.0The [facility] HospitalComment on above:Performed By: #### CBC #### [facility] [address] [place] [address] Dr. Brissa HydeUAL DIFF REQNONormalThe [facility] HospitalComment on above: Performed By: #### CBC #### [facility] [address] [place] [address] Dr. Brissa Fernandez (RBC) [Entitic mass]30.4 ozOaknxz89.9-34.0The [facility] HospitalComment on above:Performed By: #### CBC #### [facility] [address] [place] [address] Dr. Brissa Elizabeth (RBC) [Mass/Vol]31.7 g/oYYgfgyg23.9-35.2The [facility] HospitalComment on above:Performed By: #### CBC #### [facility] [address] [place] [address] Dr. Brissa Elizabeth (RBC) [Entitic vol]95.7 fLCritically high80.0-94.0The [facility] HospitalComment on above:Performed By: #### CBC #### [facility] [address] [place] [address] Dr. Brissa Kaye #0.6 103/ulNormal0.3-0.8The [facility] HospitalComment on above:Performed By: #### CBC #### [facility] [address] [place] [address] Dr. Brissa Reyocytes/100 WBC (Bld)8.4 %Normal1.7-12.0The [facility] Comment on above:Performed By: #### CBC #### [facility] [address] [place] [address] Dr. Brissa Barahona #3.4 103/ulNormal1.4-6.5The [facility] HospitalComment on above:Performed By: #### CBC #### [facility] [address] [place] [address] Dr. Brissa Limonophils/100 WBC (Bld)50.4 %Kicrtv02.0-75.0The [facility] HospitalComment on above:Performed By: #### CBC #### [facility] [address] [place] [address] Dr. Brissa Frye mean volume (Bld) [Entitic vol]9.2 fLCritically low 9.5-13.5The [facility] HospitalComment on above:Performed By: #### CBC #### [facility] [address] [place] [address] Dr. Brissa WalkerT151 103/rpQemqdm845-982Kej Genesis Hospitalment on above: Performed By: #### CBC #### [facility] [address] [place] [address] Dr. Brissa MaRBC4.38 106/ulCritically low4.70-6.10The [facility] Hospitalment on above:Performed By: #### CBC #### [facility] [address] [place] [address] Dr. Brissa MaWBC6.8 103/ulNormal4.0-11.0The [facility] HospitalComchildren[facility] [place] on above: Performed By: #### CBC #### [facility] [address] [place] [address] Dr. Brissa MaCREATININEon 31-47-1971Hwxkqkpdtr [Mass/Vol]1.30 mg/dLNormal 0.70-1.30The [facility] HospitalComment on above:Performed By: #### ELEC, BUN, BNP, LIVER, CREA #### [facility] [address] [place] [address] Dr. Brumfield ChangEGFR-AF NAMIBIAN>60Normal>=60[facility] Centerment on above:Performed By: #### ELEC, BUN, BNP, LIVER, CREA #### [facility] [address] [place] [address] Dr. Brissa HoytGFR-NON AF FUWDGOKT04 mL/min/1.04s4Efdbemwsgn low>=60The [facility] Hospitalment on above:Performed By: #### ELEC, BUN, BNP, LIVER, CREA #### [facility] [address] [place] [address] Dr. Brissa HoytLECTROLYTESon 82-81-6352Sblxj gap [Moles/Vol]12.3 mmol/LNormal The [facility] HospitalComchildren[facility] [place] on above:Performed By: #### ELEC, BUN, BNP, LIVER, CREA #### [facility] [address] [place] [address] Dr. Brissa MaChloride [Moles/Vol]106 mmol/HByowif61-969Tce [facility] Comment on above:Performed By: #### ELEC, BUN, BNP, LIVER, CREA #### [facility] [address] [address] [address] Brissa MaCO2 [Moles/Vol]24.3 mmol/EDejyip99.0-32.0[facility] Comment on above:Performed By: #### ELEC, BUN, BNP, LIVER, CREA #### [facility] [address] [address] [address] Brissa MaPotassium [Moles/Vol]4.6 mmol/LNormal3.5-5.1The [facility] Comment on above:Performed By: #### ELEC, BUN, BNP, LIVER, CREA #### [facility] [address] [address] [address] Brissa MaSodium [Moles/Vol]138 mmol/CPtoiuy103-459RuyHarrison Community Hospital Comment on above:Performed By: #### ELEC, BUN, BNP, LIVER, CREA #### [facility] [address] [place] [address] Dr. Brissa MaGLYCOHEMOGLOBIN A1Con [id number] RECOMMENDATIONSEE BELOWAvita Health System Ontario HospitalComment on above:Result Comment: ADA RECOMMENDED LIMIT 4.0 - 6.0 ADA THERAPEUTIC TARGET < 7.0 ACTION SUGGESTED > 7.0Performed By: #### A1C #### [facility] [address] [address] [address] Brissa MaGlucose [Mass/Vol]189 mg/dLNoACMC Healthcare System GlenbeighComment on above:Performed By: #### A1C #### [facility] [address] [place] [address] Dr. Brissa MaHbA1c (Bld) [Mass fraction]8.2 %Critically high4.5-6.2The [facility] HospitalComment on above:Performed By: #### A1C #### [facility] [address] [place] [address] Dr. Brissa MaLIPID PROFILEon [id number]-HDL RATIO NORMSEE BELOWLicking Memorial HospitalComment on above:Result Comment: 3.3 - 4.4 LOW RISK 4.4 - 7.1 AVERAGE RISK 7.1 - 11.0 MODERATE RISK >11.0 HIGH RISKPerformed By: #### CREA, ELEC, LIPID, LIVER, BUN #### [facility] [address] [address] [address] rBissa MaCholesterol [Mass/Vol]75 mg/dLNormal<=200[facility] Comment on above:Performed By: #### CREA, ELEC, LIPID, LIVER, BUN #### [facility] [address] [address] [address] Brissa Dacostaesterol in HDL [Mass/Vol]33 mg/dLCritically tdn38-08CxrHarrison Community HospitalComment on above:Performed By: #### CREA, ELEC, LIPID, LIVER, BUN #### [facility] [address] [place] [address] Dr. Brissa Dacostaesterol in LDL [Mass/Vol]22.0 mg/dLNoACMC Healthcare System GlenbeighComment on above:Performed By: #### CREA, ELEC, LIPID, LIVER, BUN #### [facility] [address] [address] [address] Brissa [place].total/Cholesterol in HDL [Mass ratio]2.3 {ratio} NormalHarrison Community HospitalComchildren's hospital of [place] on above:Performed By: #### CREA, ELEC, LIPID, LIVER, BUN #### [facility] [address] [place] [address] Dr. Brissa Rothman NORMAL> or = 60 mg/dl - LOW CARDIOVASCULAR RISK <40 mg/dl - HIGH CARDIOVASCULAR RISKLicking Memorial HospitalComment on above:Performed By: #### CREA, ELEC, LIPID, LIVER, BUN #### [facility] [address] [place] [address] Dr. Brissa MaLDL CALC NORMALSEE BELOWLicking Memorial HospitalComment on above:Result Comment: <100 mg/dl OPTIMAL 100 - 129 mg/dl NEAR OR ABOVE OPTIMAL 130 - 159 mg/dl BORDERLINE HIGH 160 - 189 mg/dl HIGH >190 mg/dl VERY HIGH Performed By: #### CREA, ELEC, LIPID, LIVER, BUN #### [facility] [address] [address] [address] Brissa MaTriglyceride [Mass/Vol]100 mg/dLNormal<=150The [facility] Comment on above:Performed By: #### CREA, ELEC, LIPID, LIVER, BUN #### [facility] [address] [address] [address] Brissa MaVLDL CALC20.0 mg/dLNormalThe [facility] HospitalComment on above: Performed By: #### CREA, ELEC, LIPID, LIVER, BUN #### [facility] [address] [place] [address] Dr. Brissa Michelle PROFILEon 73-64-6203Hvftfih [Mass/Vol]3.4 g/dLNormal3.4-5.0 The [facility] HospitalComment on above:Performed By: #### ELEC, BUN, BNP, LIVER, CREA #### [facility] [address] [place] [address] Dr. Brissa MaAlbumin/Globulin [Mass ratio]1.0 {ratio}NormalThe [facility] HospitalComchildren's hospital of [place] on above:Performed By: #### ELEC, BUN, BNP, LIVER, CREA #### [facility] [address] [place] [address] Dr. Brissa Baxter [Catalytic activity/Vol]96 U/NWldhjg12-370Mdg [facility] on above:Performed By: #### ELEC, BUN, BNP, LIVER, CREA #### [facility] [address] [place] [address] Dr. Brissa Hand [Catalytic activity/Vol]24 U/MUrafby20-92Glj [facility] on above:Performed By: #### ELEC, BUN, BNP, LIVER, CREA #### [facility] [address] [place] [address] Dr. Brissa MaAST [Catalytic activity/Vol]14 U/LCritically brp78-03Wqv [facility] on above:Performed By: #### ELEC, BUN, BNP, LIVER, CREA #### [facility] [address] [address] [address] Brissa SanchezI, CONJUGATED0.1 mg/dLNormal0.0-0.2[facility] Comment on above:Performed By: #### ELEC, BUN, BNP, LIVER, CREA #### [facility] [address] [address] [address] Brissa Sanchezirubin [Mass/Vol]0.4 mg/dLNormal0.2-1.0[facility] Comment on above:Performed By: #### ELEC, BUN, BNP, LIVER, CREA #### [facility] [address] [address] [address] Brissa MaGlobulin (S) [Mass/Vol]3.5 g/dLNormalThe [facility] HospitalComment on above:Performed By: #### ELEC, BUN, BNP, LIVER, CREA #### [facility] [address] [address] [address] Brissa MaProtein [Mass/Vol]6.9 g/dLNormal6.4-8.2[facility] Comment on above:Performed By: #### ELEC, BUN, BNP, LIVER, CREA #### [facility] [address] [place] [address] Dr. Brissa Ma Vital Signs Date TimeVital SignValuePerforming PxynxinujAfdjwjck33-32-1506 11:06-0400Body puygik383.2 cmStephanie Brown MD Work Phone: [facility]09-10-2025 11:06-0400 Body mass index (BMI) [Ratio]30.07 kg/j0IllrjhStephanie Brown MD Work Phone: [facility]09-10-2025 11:06-0400 Body axwury68.09 kgStephanie Brown MD Work Phone: [facility]09-10-2025 11:06-0400 Diastolic blood zqcqbrsu60 mm[Hg]Stephanie Brown MD Work Phone: [facility]09-10-2025 11:06-0400 Heart rate68 /minStephanie Brown MD Work Phone: [facility]09-10-2025 11:06-0400 Systolic blood ruqqhahr556 mm[Hg]Stephanie Brown MD Work Phone: [facility]08-15-2025 09:30-0400 Body jqxhde797.2 cmAllison Petznick DO Work Phone: [phone] [place], [place] [address]Vmdpjoqwvj93-18-4047 09:30-0400Body mass index (BMI) [Ratio]29.66 kg/r8Ihpywgr Petznick DO Work Phone: 1(227)[facility] HospitalKjgggmkpyh78-35-3797 09:30-0400Body temperature 96.3 [degF]Veda Petznick DO Work Phone: 1(626)[facility] ComplexE[facility] HospitalUlixiizfcd92-84-4242 09:30-0400Body .91 kgAllison Petznick DO Work Phone: [facility] HospitalMwydavrncg50-24-0022 09:30-0400Diastolic blood xyyjhern96 mm[Hg]Veda Petznick DO Work Phone: [phone] HospitalPgehoeftcy00-86-9399 09:30-0400Heart rate84 /min Veda Petznick DO Work Phone: [phone])[facility]1199[facility] HospitalIxdltbzhvl30-21-6048 09:30-9944YwZ0% (BldA) [Mass fraction]98 %Veda Petznick DO Work Phone: [facility] HospitalFdgspncyvc48-92-1757 09:30-0400Systolic blood zwdhromx094 mm[Hg]Veda Petznick DO Work Phone: 1(710)038-[address] [place], [place] [address]Xyihqtaiow85-84-3711 09:23-0400Body sueeiy951.2 cmAllison Petznick DO Work Phone: [facility] HospitalHkwnqmmzbj36-55-3337 09:23-0400Body mass index (BMI) [Ratio]28.35 kg/s2Mpduyvg Petznick DO Work Phone: 1(572)186-[address] [place], [place] [address]Jsrnajrqqb89-22-4723 09:23-0400Body temperature 98.2 [degF]Veda Petznick DO Work Phone: [phone])[address] [place], [place] 2588005-20-2025 09:23-0400Body lzucia93.1 kg Veda Petznick DO Work Phone: [phone] [place], [place] 2588005-20-2025 09:23-0400Diastolic blood vbidoylo37 mm[Hg]Veda Petznick DO Work Phone: 1(419)[address] [place], [place] 2588005-20-2025 09:23-0400Heart rate82 /min Veda Petznick DO Work Phone: 1(419)[address] [place], [place] 2588005-20-2025 09:23-8501WeJ3% (BldA) [Mass fraction]98 %Vead Petznick DO Work Phone: 1(419)[address] [place], [place] 2588005-20-2025 09:23-0400Systolic blood mm[Hg]Veda Petznick DO Work Phone: 1(419)[address] [place], [place] 2588002-17-2025 12:54-0500Body drakqj851.2 cmAllison Petznick DO Work Phone: 1(419)[address] [place], [place] 2588002-17-2025 12:54-0500Body mass index (BMI) [Ratio]27.88 kg/g2Jfktpda Petznick DO Work Phone: 1(419)[address] [place], [place] 2588002-17-2025 12:54-0500Body temperature 98.2 [degF]Veda Petznick DO Work Phone: 1(419)[address] [place], [place] 2588002-17-2025 12:54-0500Body voxxzc39.74 kgAllison Petznick DO Work Phone: 1(419)[address] [place], [place] 2588002-17-2025 12:54-0500Diastolic blood qzrnvahr54 mm[Hg]Veda Petznick DO Work Phone: 1([phone] [place], [place] 2588002-17-2025 12:54-0500Heart rate76 /min Veda Petznick DO Work Phone: 1(419)[facility] [place], [place] [address]Kglumcuajh32-17-8271 12:54-8337XcX4% (BldA) [Mass fraction]97 %Veda Petznick DO Work Phone: 1(256)557-[address] [place], [place] [address]Eglvabkiji52-64-5820 12:54-0500Systolic blood ftmykkss599 mm[Hg]Veda Petznick DO Work Phone: 1(815)758-[address] [place], [place] [address]Zbrjqxlvms93-06-0853 15:16-0500Body qxejze650.2 cmStephanie Brwon MD Work Phone: 1(023)692-[address] [place], [place] 3607501-08-2025 15:16-0500 Body mass index (BMI) [Ratio]28.19 kg/a0DzknkwStephanie Brown MD Work Phone: 1([phone])[address]01-08-2025 15:16-0500 Body msrykc17.65 kgStephanie Brown MD Work Phone: 1(178)[address]01-08-2025 15:16-0500 Diastolic blood uilfxwqn69 mm[Hg]Stephanie Brown MD Work Phone: 1(111)[address]01-08-2025 15:16-0500 Heart rate68 /minStephanie Brown MD Work Phone: 1(246)[address]01-08-2025 15:16-0500 Systolic blood eydisome308 mm[Hg]Stephanie Brown MD Work Phone: 1(515)[address]11-18-2024 09:01-0500 Body xyrlkr644.2 cmAllison Petznick DO Work Phone: 1(616)110-[address] [place], [place] [address]Bfqwukrtfa88-57-4060 09:01-0500Body mass index (BMI) [Ratio]28.19 kg/f1Zcjxmts Petznick DO Work Phone: 1(267)159-[address] [place], [place] [address]Ehsalygdni97-89-6800 09:01-0500Body temperature 98.01 [degF]Veda Petznick DO Work Phone: 1(200)751-[address] [place], [place] [address]Erheghlncx11-27-1547 09:01-0500Body cxnyqz01.65 kgAllison Petznick DO Work Phone: 1(663)526-[address] [place], [place] [address]Cjjhbdsfzv35-41-7098 09:01-0500Diastolic blood ubzeobfd12 mm[Hg]Veda Petznick DO Work Phone: [facility] HospitalKocmuhzyyv04-91-4374 09:01-0500Heart rate92 /min Veda Petznick DO Work Phone: [facility] HospitalLjgnftfpot16-54-8407 09:01-3461NbC5% (BldA) [Mass fraction]94 %Veda Petznick DO Work Phone: [facility] HospitalAgqmndtjfd84-45-3661 09:01-0500Systolic blood bfntizuk435 mm[Hg]Veda Petznick DO Work Phone: [facility] HospitalDfxjvgjpnb09-68-8764 13:27-0400Body hzveoq829.2 cmSultanafernanda Calderon DPM Work Phone: [facility] HospitalYtgafdrcqw15-20-0178 13:27-0400Body mass index (BMI) [Ratio]28.04 kg/z3Yzwtnlyr Jax DPM Work Phone: 1([phone] [place], [place] [address]Sijouqbllb01-91-9730 13:27-0400Body ewbaqr36.19 kgKennedy Jax DPM Work Phone: [facility] HospitalZkekvbiotv89-07-3425 13:27-0400Respiratory rate17 /minAbielsara Calderon DPM Work Phone: [facility] HospitalPlbbljazkw27-49-9001 13:58-0400Body lfoumt815.2 cmAllison Petznick DO Work Phone: [facility] HospitalNmwqkrcdhv92-16-8635 13:58-0400Body mass index (BMI) [Ratio]28.16 kg/u0Htvwfyy Petznick DO Work Phone: [facility] HospitalSpsvvrgmaq34-93-1273 13:58-0400Body temperature 96.4 [degF]Veda Petznick DO Work Phone: [facility] HospitalPyuiyohwbz45-94-6095 13:58-0400Body vppqus81.56 kgAllison Petznick DO Work Phone: noMad[facility] CenterQospvjwevg65-47-4012 13:58-0400Diastolic blood tubizyyd76 mm[Hg]Veda Petznick DO Work Phone: noMad[facility] Medical CenterZbbidettrr29-40-5596 13:58-0400Heart rate74 /min Veda Petznick DO Work Phone: noMadison Medical CenterOachfdwvel75-33-2266 13:58-9961GbP0% (BldA) [Mass fraction]98 %Veda Petznick DO Work Phone: noMad[facility] Medical CenterJtuccedqna48-39-6844 13:58-0400Systolic blood ytigwftc113 mm[Hg]Veda Petznick DO Work Phone: noMadison Medical CenterHxxiyeeucv11-68-1706 13:40-0400Body .6 cmHenrry Purvis MD Work Phone: 1([phone] [place], [place] 3607505-24-2024 13:40-0400 Body mass index (BMI) [Ratio]30.02 kg/s0NnmqwugHenrry Purvis MD Work Phone: 1(548)41421 [address]05-24-2024 13:40-0400 Body khzfpa41.37 kgHenrry Purvis MD Work Phone: [phone])[address] [place], [place] 3607505-24-2024 13:40-0400 Diastolic blood mm[Hg]Henrry Purvis MD Work Phone: 1(987)41421 [address]05-24-2024 13:40-0400 Heart rate82 /minWirio Purvis MD Work Phone: [phone] [place], [place] 3607505-24-2024 13:40-0400 Systolic blood aujlgiwa395 mm[Hg]Henrry Purvis MD Work Phone: 1(937)25221 [address]02-07-2024 13:24-0500 Body mbmwpa518.2 cmMajun BROOKS Work Phone: [facility] HospitalJvsfnotggn25-17-2752 13:24-0500Body mass index (BMI) [Ratio]28.19 kg/k9PwspsjkNegro BROOKS Work Phone: [facility] HospitalOcrbzabneh48-47-4632 13:24-0500Body jdmzyt67.65 kgMatthew Kevin BROOKS Work Phone: [facility] HospitalPnnlngzkjy36-96-2451 14:28-0500Body qqxiud526.2 cmHenrry Purvis MD Work Phone: [facility]11-15-2023 14:28-0500 Body mass index (BMI) [Ratio]30.07 kg/w2RwslgutHenrry Purvis MD Work Phone: [address] [place], [place] 1665211-15-2023 14:28-0500 Body .09 kgHenrry Purvis MD Work Phone: 1(953)536-[address] [place], [place] 3607511-15-2023 14:28-0500 Diastolic blood pmkhkvzi81 mm[Hg]Henrry Purvis MD Work Phone: [facility]11-15-2023 14:28-0500 Heart rate92 /minHenrry Purvis MD Work Phone: [facility]11-15-2023 14:28-0500 Systolic blood ecrhkguv592 mm[Hg]Henrry Purvis MD Work Phone: [address] [place], [place] 16[address]211-03-2023 11:43-0400 Body mass index (BMI) [Ratio]30.4 kg/m2JR Hugo Moser Work Phone: [facility]11-01-2023 13:51-0400 Diastolic blood xipidgpf92 mm[Hg]JR Hugo Moser Work Phone: [facility]11-01-2023 13:51-0400 Heart rate83 /minJR Hugo Moser Work Phone: [facility]11-01-2023 13:51-0400 Respiratory rate14 /minJR Hugo Moser Work Phone: [facility]11-01-2023 13:51-0400 SaO2% (BldA) [Mass fraction]98 %JR Hugo Moser Work Phone: [facility]11-01-2023 13:51-0400 Systolic blood dhownwol593 mm[Hg]JR Hugo Moser Work Phone: 1(630)892-[address] [place], [place] 1583211-01-2023 12:00-0400 Body .8 [degF]JR Hugo Moser Work Phone: 9(388)822-[address] [place], [place] 1583211-01-2023 06:00-0400 Body ewpcpj59.5 kgJR Hugo Moser Work Phone: 1(133)672-[address] [place], [place] 1583210-31-2023 15:37-0400 Inhaled oxygen flow rate6 L/minJAlex Moser Work Phone: 1(095)[address]10-31-2023 15:12-0400 Body rrakrm766.18 cmJR Hugo Moser Work Phone: 1(655)[address]10-31-2023 15:12-0400 Body mass index (BMI) [Ratio]30.4 kg/m2JR Hugo Moser Work Phone: 1(306)068-[address] [place] [address] Encounters Encounter DateEncounter TypeCare ProviderFacilityStart: 11-09-2024 End: 85-45-4164Nhxres outpatient visit 25 minutesStephanie Brown MD Work Phone: uh [facility] HospitalComment on above:Paroxysmal atrial fibrillation (Multi) (Primary Dx); History of cardiomyopathy; Mild tricuspid regurgitation; AV block, Mobitz II; Pacemaker; Mixed hyperlipidemia; Diabetes mellitus type II, non insulin dependent (Multi); Obesity (BMI 30.0-34.9); Never smoked tobacco; High risk medication useStart: 11-09-2024 End: 70-52-8300xmakfatpiuINAZVB M IBRAHIMSumma Health AmbulatoryStart: 10-18-2024 End: 93-13-2257fyifuhzzboYnqnyi IbrahimFacility:[facility] Hospitaltart: 66-43-5279Oqs-patient / Non-visitGildardo Teran-Heart Rhythm ClinicStart: 10-14-2024 End: 14-26-8269Rpmnzv outpatient visit 25 minutesAlljose Arevalo Petznick DO Work Phone: [facility] 230Comment on above:Type 2 diabetes mell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, with long-term current use of insulin (HCC)Start: 10-14-2024 End: [id number] Mickey PETZNICKNot AvailableStart: 08-02-2024 End: 89-51-0923Kozokbqgd encounterAllison Mickey Petznick DO Work Phone: [facility] 230Comment on above:Blood Sugar Problem Start: 07-19-2024 End: 86-80-2291paaipzmxxhVizotz IbrahimLos Alamos [facility] Hospitaltart: 07-19-2024 End: 96-56-5031Mckefj outpatient visit 25 minutesAllison Mickey Petznick DO Work Phone: [facility] 230Comment on above:Type 2 diabetes mell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, with long-term current use of insulin (HCC) ([facility]/HCC) (Primary Dx); Type 2 diabetes mell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, without long-term current use of insulin (HCC) (CMS/HCC)Start: 07-19-2024 End: 27-51-0749liolbceypvCFXZBJF M PETZNICKNot AvailableStart: 07-18-2024 End: 07-50-3766Qvxceqwtd encounterAllison M Petznick DO Work Phone: [facility] FM 230Comment on above:Appointment ConfirmationStart: 04-18-2024 End: 88-72-2545Byoyuc outpatient visit 25 minutesAllison Mickey Petznick DO Work Phone: [facility] 230Comment on above:Type 2 diabetes mell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, without long-term current use of insulin (HCC) (CMS/HCC)Start: 04-18-2024 End: 84-23-5496sssbhgoentVXGVIUS Mickey PETZNICKNot AvailableStart: 04-15-2024 End: 39-80-2779Npitoynsu encounterAllison M Petznick DO Work Phone: [facility] 230Comment on above:Appointment ConfirmationStart: 04-15-2024 End: 18-01-2174Wujikvg encounter procedureCharmolina Moser JR Work Phone: [facility]-Pacemaker CheckStart: 04-15-2024 End: 27-81-8206ocabcyxghrOdbglwv L Valone JR Work Phone: [facility] Work Phone: Start: 94-86-4271Fdk-patient / Non-visitCharmolina Moser JR Work Phone: [facility]-Heart Rhythm ClinicStart: 03-09-2024 End: 41-61-9194Hmvhxj outpatient visit 25 minutesStephanie Brown MD Work Phone: [facility] HospitallandsComment on above:Pacemaker (Primary Dx); AV block, Mobitz II; Mixed hyperlipidemia; Paroxysmal atrial fibrillation (Multi); Mild tricuspid regurgitation; Diabetes mellitus type II, non insulin dependent (Multi); BMI 28.0-28.9,adult; Never smoked tobacco; OverweightStart: 03-09-2024 End: 85-09-0206prcxecdixyFSWUQU M [facility] AmbulatoryStart: 02-17-2024 End: 67-82-6144Cukxwf flowsheetJr. Gini Cárdenas DO Work Phone: [facility] ORTHOStart: 02-17-2024 End: 83-40-3750Idbrjt flowsheetJr. Gini Cárdenas DO Work Phone: [facility] ORTHOStart: 02-17-2024 End: 75-65-4563Lvepuo outpatient visit 15 minutesJr. Gini Cárdenas DO Work Phone: [facility] ORTHOComment on above:Rotator cuff arthropathy, right (Primary Dx); Shoulder arthritisStart: 02-17-2024 End: 48-64-1182xmdbluiagbRT., GINI CÁRDENASNot AvailableStart: 01-18-2024 End: 82-73-6346Eqqxpo flowsheetVeda Rome DO Work Phone: [facility] FM 230Start: 01-18-2024 End: 86-60-2939Lslwza flowsDavid Rome DO Work Phone: [facility] FM 230Start: 01-18-2024 End: 63-08-7055Bqgiti outpatient visit 25 minutesVeda Rome DO Work Phone: [facility] 230Comment on above:Type 2 diabetes mell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, without long-term current use of insulin (HCC) (CMS/[facility]); Type 2 diabetes mellitus with hyperglycemia, without long-term current use of insulin ([facility])Start: 01-18-2024 End: 47-60-3354vdptkspomkDTYDLAN M PETZNICKNot AvailableStart: 01-15-2024 End: 16-66-0092bjfsjhwonnIugvhg [facility] HospitalFacility:[facility] Hospitaltart: 46-00-6290Srn-patient / Non-visitCarepartners Rehabilitation [facility] Phys[facility] Group-Heart Rhythm ClinicStart: 01-14-2024 End: 66-13-0682Kaxytbfvz encounterVeda Rome DO Work Phone: [facility] 230Start: 12-10-2023 End: 79-60-0234Sofrmo flowsMay Calderon DPM Work Phone: [facility] CI PODIATRYStart: 12-10-2023 End: 05-79-7253Ecciiw flowsMay Calderon DPM Work Phone: [facility] CI PODIATRYStart: 12-10-2023 End: 27-32-3769Aobeyqm encounter procedureKennedy Calderon DPM Work Phone: [facility] CI PODIATRYComment on above:Type 2 diabetes mellitus without complication, 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 ([facility]) (Primary Dx); Pain due to onychomycosis of toenails of both feetStart: 12-10-2023 End: 31-13-3815buqxucwwuxKKTKZXQM A BROWNNot AvailableStart: 12-03-2023 End: 85-86-5440Ovljac outpatient new 45 minutesVeda Rome DO Work Phone: [facility] FM 230Comment on above:Type 2 diabetes mell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, without long-term current use of insulin (HCC) (CMS/HCC) (Primary Dx); Type 2 diabetes mellitus with hyperglycemia, without long-term current use of insulin (CMS/HCC)Start: 12-03-2023 End: 44-53-9287vjdkxiswyiLOWTSMP M PETZNICKNot AvailableStart: 12-02-2023 End: 87-09-2100Sijzbqmqz encounterVeda Rome DO Work Phone: [facility] FM 230Start: 42-51-7526Jvp-patient / Non-visitCarepartners [facility]-Heart Rhythm ClinicStart: 10-16-2023 End: 56-19-5171zlgwjmdmooNC Charles L Valone Work Phone: [facility] Work Phone: Start: 10-16-2023 End: 01-24-6182Lxpdevc encounter procedureJAlex Moser Work Phone: [facility]-Pacemaker CheckStart: 07-24-2023 End: 20-36-1349Bjngwl outpatient visit 25 minutesHenrry Purvis MD Work Phone: [facility] CenterComment on above:Non-ischemic cardiomyopathy (Multi) (Primary Dx); AV block, Mobitz II; Pacemaker; Mixed hyperlipidemia; BMI 30.0-30.9,adultStart: 04-15-2023 End: 26-18-0853vooyfgkbkqSZ Charles L Valone Work Phone: [facility] Work Phone: Start: 04-15-2023 End: 00-14-4970Zioqwvo encounter procedureJR Hugo Moser Work Phone: [facility]-Pacemaker CheckStart: 04-08-2023 End: 34-68-7938Voobny outpatient new 45 minutesNegro BROOKS Work Phone: [facility] ORTHOComment on above:Acute pain of right shoulder; Rotator cuff arthropathy, right; Arthritis of right acromioclavicular jointStart: 01-14-2023 End: 98-19-2198Ouskkq outpatient visit 25 minutesHenrry Purvis MD Work Phone: uh FirelandsComment on above:AV block, Mobitz II; Pacemaker; Obesity (BMI 30.0-34.9)Start: 01-08-2023 End: 96-09-4193uuppyhzrxuQK Hugo Josy Moser Work Phone: [facility] Work Phone: Start: 01-08-2023 End: 84-14-0116Wkgnslf encounter procedureJR Hguo Ciro Work Phone: [facility]-XRay [facility] Work Phone: Start: 12-28-2022 End: 80-56-5850Qnenuwhbmv and management of inpatientJR Hugo Moser Work Phone: [facility] [place] [facility] Work Phone: Start: 05-19-2022 End: 32-67-3454ybzfpeuosbRL HUGO MOSERFacility:D1Lurnc: 01-22-2022 End: 85-44-4830xxpddavjqgCU HUGO MOSERFacility:J7Bunqq: 90-77-8697Gvctpbcfw for general adult medical examination without abnormal findingsDR HUGO MOSER [facility]tart: 10-08-2021 End: 26-70-8983liwapflxbhWL HUGO MOSERFacility:F4Bsjbu: 10-08-2021 End: 85-57-2457Tjelazsfr for general adult medical examination without abnormal findingsDR HUGO MOSERFacility:H1 Procedures DateProcedureProcedure DetailPerforming ClinicianStart: 46-34-3883Nttanmvbyg glycosylated i4eLjqrdiajose Rome DO Work Phone: Start: 57-24-4586Smxsnuoxdl glycosylated v9yDnuwiioVeda Salazarick DO Work Phone: Start: 76-07-9628Uarvbuyxst glycosylated v6jHxpyhspVeda Rome DO Work Phone: Start: 06-02-1226Rzt routine ecg w/least 12 lds w/i&r Stephanie Brown MD Work Phone: Start: 34-14-9208Bwpwnfdnog glycosylated r2wPeoqulbVeda Rome DO Work Phone: Start: 05-47-2048Pvpfr chest X-rayJR Hugo Moser Work Phone: Start: 04-08-2023 End: 61-03-6261Tgscxohjiqlpov aspir&/inj major jt/bursa w/o usMatthew J Kevin BROOKS Work Phone: Start: 97-38-3026Lzvrj chest X-rayJR Hugo Moser Work Phone: Start: 23-12-8593Ejdtn chest X-rayJR Hugo Moser Work Phone: Start: 05-39-6355Cwgyo chest X-rayJR Hugo Moser Work Phone: Start: 58-80-0210Lvagubdxkmwh of cardiac pacemakerJR Hugo Moser Work Phone: Plan of Treatment DateCare ActivityDetailAuthorStart: 06-20-2025 End: 39-81-4691Tebfsnc encounter vvpuefvzm02/21/2026 11:10 AM EDT Office Visit [facility] [address] [facility] [address] [place] [address] Stephanie Brown MD [address] [place] [address] [facility]Start: 01-13-2025 End: 78-55-1385Yqdvxrs encounter cvbbtzmtu20/14/2025 8:45 AM EST Office Visit [facility] [address] [place] [address] Veda Rome, DO [address] [place] [address] [facility] [place] [facility] 230 Start: 11-09-2024 End: 38-77-1368Wefnjtl aminotransferase [Enzymatic activity/volume] in Serum or Plasma by With P-5'-PAlanine Aminotransferase Lab Routine Mixed hyperlipidemia Expected: 11/09/2024 (Approximate), Expires: 11/09/2025[facility] Service Area Work Phone: Comment on above:Expected: 11/09/2024 (Approximate), Expires: 11/09/2025Start: 11-09-2024 End: 99-23-5286Bgtld metabolic 2000 panel - Serum or PlasmaBasic Metabolic Panel Lab Routine History of cardiomyopathy Expected: 11/09/2024 (Approximate), Expi res: 11/09/2025[facility] Work Phone: Comment on above:Expected: 11/09/2024 (Approximate), Expires: 11/09/2025Start: 11-09-2024 End: 50-33-7004EIC panel - Blood by Automated countCBC Lab Routine History of cardiomyopathy Expected: 11/09/2024 (Approximate), Expires: 11/09/2025[facility] Work Phone: Comment on above:Expected: 11/09/2024 (Approximate), Expires: 11/09/2025Start: 11-09-2024 End: 67-61-8745Ddgyr 1996 panel - Serum or PlasmaLipid Panel Lab Routine Mixed hyperlipidemia Expected: 11/09/2024 (Approximate), Expires: 11/09/2025[facility] Work Phone: Comment on above:Expected: 11/09/2024 (Approximate), Expires: 11/09/2025Start: 11-09-2024 End: 20-28-0059Ypgyqqp encounter bjqinbtgl79/10/2025 11:00 AM EDT Office Visit [place] [id number] [facility] [address] [place] [phone] Stephanie Brown MD [address] [place] [address] [facility]Start: 09-89-5024UGNXU-19 Vaccine ( season)COVID-19 Vaccine ( season)[facility] Start: 81-33-3965Jggvdqrfc vaccinationNOCA HealthcareStart: 10-14-2024 End: 18-40-4161Xnyxkze encounter nifzczqkt51/15/2025 9:45 AM EDT Office Visit [facility] [address] [place] [phone] Veda Rome, DO [address] [place] [address] [facility] 230Start: 07-19-2024 End: 18-73-8602Pswywzl encounter procedureNOJOHN [facility] 230Comment on above:Type 2 diabetes mell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, without long-term current use of insulin (HCC) ([facility])Start: 04-18-2024 End: 43-44-1247Fjfdrsj encounter xrrvubjvc93/17/2025 1:00 PM EST Office Visit [facility] [address] [place] [phone] Veda Rome, DO [address] [place] [address] [facility] 230Start: 03-09-2024 End: 12-87-5980Vadrqbe encounter olxvvlqou38/08/2025 10:50 AM EST Office Visit [facility] [address] [facility] [address] [place] [address] Stephanie Brown MD [address] [place] [address] [facility] CenterStart: 02-17-2024 End: 36-68-7159Hwjieqa encounter procedureNOMS SWS ORTHOComment on above:Arrived Start: 01-15-2024 End: 00-44-3150Ysoopog encounter /15/2024 2:00 PM EST Office Visit [facility] [address] [place] [phone] Veda Rome, DO [address] [place] [address] [facility] 230Start: 12-10-2023 End: 57-30-9890Xfhlqrj encounter procedureNOMS CI PODIATRYComment on above:Type 2 diabetes mellitus without complication, unspecified whether prison insulin use ([facility]) (Primary Dx); Pain due to onychomycosis of toenails of both feetStart: 12-03-2023 End: 83-92-9147Xlrpegx encounter svvyljjbr09/03/2024 2:00 PM EDT Office Visit [facility] [address] [place] [phone] Veda Rome, DO [address] [place] [address] [facility] 230Start: 72-49-8169IWRXS-19 Vaccine ( season)COVID-19 Vaccine ( season)[facility]Start: 55-57-5942Bownqqhuz vaccinationFisher-Titus Medical Center Start: 07-24-2023 End: 48-30-3046Tusftzg encounter bmjhbecdl34/24/2024 1:40 PM EDT Office Visit [facility] [address] [facility] [address] [place] [phone] Henrry Purvis MD [address] [facility] [address] [place] [address] [facility] Hospitalart: 05-11-2023 End: 46-53-0813Rloekuy encounter vikvfsyqu85/11/2024 10:45 AM EDT Office Visit [facility] [address] [place] [phone] Jr. Gini Cárdenas, DO [address] [place] [address] [facility] ORTHOStart: 49-15-5070EkrbgkccvOhioHealth Shelby Hospitaltart: 89-98-1933DsoigtistOhioHealth Shelby Hospitaltart: 14-18-5140Gezrwclrf of Pacemaker Lead into Right Atrium, Percutaneous Approach Insertion of Pacemaker Lead into Right Atrium, Percutaneous ApproachOhioHealth Shelby Hospitaltart: 72-49-1946Ptwklctik of Pacemaker Lead into Right Ventricle, Percutaneous ApproachInsertion of Pacemaker Lead into Right Ventricle, Percutaneous ApproachOhioHealth Shelby Hospitaltart: 92-35-8194Ivgqoatcq of Pacemaker, Dual Chamber into Chest Subcutaneous Tissue and Fascia, Open ApproachInsertion of Pacemaker, Dual Chamber into Chest Subcutaneous Tissue and Fascia, Open ApproachTrumbull Regional Medical [facility] Start: 06-45-5038Coxomxvc admissionOhioHealth Shelby Hospitaltart: 33-44-6279Estpolcr to cardiologistOhioHealth Shelby Hospitaltart: 33-40-7452HMKJT-19 Vaccine ( season)COVID-19 Vaccine ( season)[facility]: 93-35-1125Dhuxtoeka vaccination Influenza Vaccine (#1)[facility]: 25-17-3917WSCYZ-19 Vaccine (4 - Moderna series)COVID-19 Vaccine (4 - Moderna series)[facility]: 13-49-3477Lqhoysklxxwp vaccinationPneumococcal Vaccine (2 of 2 - PCV)[facility]: 05-18-2019 Pneumococcal Vaccine: 65+ Years (2 - PCV)Pneumococcal Vaccine: 65+ Years (2 - PCV)[facility]: 53-12-5352Prjwxefrnfiw Vaccine: 65+ Years (2 of 2 - PCV)Pneumococcal Vaccine: 65+ Years (2 of 2 - PCV)[facility]: 04-70-9216QCX High Risk: (Elderly (60+) or Population) (1 - 1-dose 75+ series)RSV High Risk: (Elderly (60+) or Population) (1 - 1-dose 75+ series)[facility]: 20-42-5194VDT patients and/or patients aged 60+ years (1 - 1-dose 60+ series)RSV patients and/or patients aged 60+ years (1 - 1-dose 60+ series)[facility]: 97-69-5981Tuhkws Vaccines (1 of 2)Zoster Vaccines (1 of 2)[facility]: 08-18-1962 DTaP/Tdap/Td Vaccines (1 - Tdap)DTaP/Tdap/Td Vaccines (1 - Tdap)[facility]: 37-90-2618Qdjpa screening for proteinDiabetes: Urine Protein ScreeningUnUK Healthcare: 08-18-1950 Diabetic foot examinationDiabetes: Foot ExamUnChildren's Hospital of Columbus Start: 29-38-3313Ffupybec screeningDiabetes: Retinopathy ScreeningUnUK Healthcare: 68-70-2072Kqxqfjfult A1c measurementDiabetes: Hemoglobin F6CSihojlyugxUK Healthcare: 92-34-6721Tauqm panelLipid PanelUnUK Healthcare: 06-19-1940Medicare Annual Wellness VisitMedicare Annual Wellness Visit (AWV)[facility]: 35-86-1650Eggxk screening for proteinDiabetes: Urine Protein ScreeningUnChildren's Hospital of ColumbusPatient EducationClindamycin (Systemic)[facility] Work Phone: Patient referralKettering Health [facility]tr Work Phone: XR Shoulder - right 2 ViewsXR shoulder 2+ views right Imaging Routine Acute pain of right shoulder 04/08/2023 1:21 PM [facility] Work Phone: Immunizations Immunization DateImmunizationNotesCare IkwdnjeuLnnhyhmz75-94-5532Oznlzpe COVID- 19 vaccine, bivalent, blue cap/goff label *Check age/dose*Henrry Purvis MD Work Phone: [facility]12-02-2021influenza, injectable, quadrivalent, preservative Rona Purvis MD Work Phone: [facility] Work Phone: [phone]chdep virus vaccine, unspecified formulationHenrry Purvis MD Work Phone: [facility] Work Phone: [phone], injectable, quadrivalent, preservative Rona Purvis MD Work Phone: [facility] Work Phone: [phone] polysaccharide vaccine, 23 valentHenrry Purvis MD Work Phone: [facility] Work Phone: Payers DatePayer CategoryPayerPolicy [id number] Health InsuranceAARP [id number] 2023Medicare supplemental policy (as second payer)AARP Member Subscriber Plan / Payer (Effective 2022-Present) Name: Emmanuel Jiménez Relation to Subscriber: Self Name: Emmanuel Jiménez Payer ID:Not on file Group ID: Not on file Type: Not on file Address: [address] [place] [id number]tmu [id number] 2005Medicare [id number] [id number] 1960 [id number] 2..840.1.267777.3.579.2.593 [id number] 2.840.1.245692.3.57[id number] 2.840.1.445378.3.57[id number] 2.16.840.1.429725.3.57[id number] 2.16840.1.844347.3.57[id number] 2.16840.1.608772.3.57[id number] 2.16.840.1.611951.3.57[id number] 2.16840.1.072257.3.57[id number] 2.16.840.1.146285.3.57[id number] 2.16840.1.470614.3.57[id number] 2.16.840.1.544895.3.57[id number] 2.16.840.1.85[id number] 2.16.840.1.327817.3.579.2.531 [id number] 2.16.840.1.3[id number] 2.16.840.1.1[id number] 2.16.840.1.156095.3.579.2.531 Social History DateTypeDetailFacilityStart: 12-30-2022 End: 94-11-7300Yytmgrk smoking status NHISNever smoked tobacco (finding) [facility]tart: 11-77-4993Vre Assigned At BirthMale [facility] Hospitaltart: 01-14-2023 End: 66-32-4122Xlvakiq use and exposureSmokeless tobacco non-userFisher-Titus Medical Center Work Phone: Start: 01-14-2023 End: 41-28-7439Yehyyul intakeLifetime non-drinker (finding)[facility] Work Phone: Start: 01-14-2023 End: 86-80-1937Kpxyiix of Social functionUnChildren's Hospital of Columbus Work Phone: Start: 01-14-2023 End: 84-19-8702Zqzwahd use panelFisher-Titus Medical Center Work Phone: Start: 11-98-2222Ole Assigned At BirthNot on file [facility] Work Phone: Start: 01-04-2023 End: 32-23-1294Swalbkwd to SARS-CoV-2 (event)Not sureUnMatagorda Regional Medical CentervelandStart: 04-08-2023 End: 38-80-8276Gsjsclt intakeCurrent drinker of alcohol (finding)[facility] Start: 01-19-2024 End: 17-45-5018JufOqpo (finding)[facility] Hospitaltart: 01-18-2024 End: 35-32-3374Orobsbuzu beverage intakeEx-drinker (finding)[facility] HospitalHow often to you have a drink containing alcohol?NeverNOCA HealthcareStart: 47-02-3598Euz many standard drinks containing alcohol do you have on a typical day?Patient does not drinkEastern Missouri State Hospital Medical Equipment Procedure CodeEquipment CodeEquipment Original TextEquipment IdentifierDates Insertion, pacemakerEndocardial pacing lead ()[id number] FDAStart: 22-69-9409Tyykxhzyl, pacemakerEndocardial pacing lead()[id number] FDA Start: 73-06-6769Vctlvfxxo, pacemakerDual-chamber implantable pacemaker, rate-responsive()[id number] FDAStart: each by In Vitro route See administration instructions Check [id number]: each by In Vitro route 2 (two) times a [id number]: 08-11-2024 Goals DatePatient GoalDesired Activity/State Functional Status EmjzJvmrctikisRlcbhbYfdmdzqz45-18-3363Usajqzp Health Questionnaire 2 item (PHQ- 2) [Reported][facility] HospitalFxeycuxeww66-58-7383Fexmape Health Questionnaire 2 item (PHQ- 2) [Reported][facility] HospitalQururxoykj68-50-7345Infftwdpii statusPatient at Baseline [facility] Work Phone: Mental Status FjiiEsibvwnsmmBfwufkQgccaaya73-86-9463Qgsttoykd functionCognitive Status Patient at BaselineAultman Alliance Community Hospital Work Phone: Clinical Notes 12-28-2022 to 11-09-2024 Note Date & HmvhNonnBfqllsvf37-13-8339 History of Present illness Narrative* Stephanie Brown MD - 11/09/2024 11:00 AM EDT HPI Patient is in the office for follow-up for high-grade AV block requiring pacemaker implantation whohas hyperlipidemia and diabetes and recently pacemaker analysis [...] mild tricuspid regurgitation without pulmonary hypertension. Assessment/recommendations: 1-dukl-enkel AV block status post permanent pacemaker 2022 [...] patient is compliant medical therapy and medical follow- up. He follows low-fat diet and low carbohydrate [...] patient, he agrees to proceed with our r ecommendations ROS Occasional dizziness Vitals: 11/09/24 1106 BP: [...] Scribe Attestation By signing my name below, Karuna Gage LPN, Scribe attest that this documentation has been prepared under the direction and in the presence of Stephanie Brown MD. Provider Attestation - Scribe documentation All medical record entries made by the Scribe were at my direction and personally dictated by me. Ihave reviewed the chart and agree that the record accurately reflects my personal performance of the history, physical exam, discussion and plan. documented in this [facility] Work Phone: [phone] 109-254409-10-2025 Instructions* Patient Instructions* Karuna Ashton LPN - 11/09/2024 11:00 AM [...] on dietary changes Provided instructions on exercise. * Attachments The following attachments cannot be sent through Care Everywhere. * Heart-healthy diet (Turkish) documented in this [facility] Work Phone: [phone] 499-161508-15-2025 History of Present illness Narrative* Veda Rome DO - 10/14/2024 9:52 AM EDTAssociated Problem(s): Type 2 diabetes mellitus with [...] at breakfast to improve his afternoon readings. * Veda Rome, - 10/14/2024 9:45 AM EDT Images from the original note [...] On occasion even if he is eating righthis reading is in the 200s. Diet: Trying [...] in the morning and 100 mg before bedtime.Take 100 mg by mouth in the morning [...] 1,000 mg BID with meals PO Labs [facility] HEMOGLOBIN A1C/HEMOGLOBIN.TOTAL:MFR:PT:BLD:QN: 8.7 Outpatient prescription Medication marked as long-term [...] with the patient today. documented in this encounterEastern Missouri State HospitalVafjobeqjp74-50-9354 Evaluation note* Diagnosis Type 2 diabetes mellitus [...] of insulin (HCC) documented in this encounter [facility] HospitalQyvxqlmvml44-36-9453 Telephone encounter Note* Telephone Encounter - Elba Platt - 08/02/2024 11:02 AM EDT Since starting the new insulin around 07/22 his bg has been running higher than normal. They have consistently been over 100 in the morning (186,177,180----before new insulin they were usually around 100) and at night night they have ranged from 222,183, 228. He hasn't changed his diet and would like to know what he should do. [facility] HospitalJwfzupddek20-13-3523 Miscellaneous Notes* Telephone Encounter - Elba Platt - 08/02/2024 11:02 AM EDT Since starting [...] what he should do. documented in this encounterEastern Missouri State HospitalXdcsthvwru57-94-1487 History of Present illness Narrative* Veda Rome DO - 07/19/2024 12:17 PM EDTAssociated Problem(s): Type 2 diabetes mell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, with long-term current use of insulin (HCC) ([facility]) During the appointment today all pertinent labs, [...] with long-term current use of insulin (HCC) ([facility]) Social History Tobacco Use Smoking status: Never Smokeless tobacco: Never Substance Use Topics Alcohol use: Not Currently Drug use: Never No Known Allergies Synopsis [facility] 07/19/2024 06/16/2024 00:00 Antidiabetic medications Acarbose 100 [...] 1,000 mg BID with meals [facility] HEMOGLOBIN A1C/HEMOGLOBIN.TOTAL:MFR:PT:BLD:QN: 9.0 Outpatient prescription Medication marked as long-term Patient-reported The ASCVD Risk score (Chalmers DK, et al., 2019) failed to calculate [...] with long-term current use of insulin (HCC) ([facility]) - Primary During the appointment today all [...] Emmanuel Jessy blood sugars are worsening. , Instructed on [...] with the patient today. documented in this encounterEastern Missouri State HospitalSqaujxrvaw38-88-1647 Evaluation note* Diagnosis Type 2 diabetes mell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, without long-term current use of insulin (HCC) ([facility]/HCC) Type 2 diabetes mell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, with long-term current use of insulin (HCC) ([facility]/HCC)- Primary Type 2 diabetes mell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, without long-term current use of insulin (HCC) ([facility]) documented in this encounter [facility] HospitalMerpygqnoa59-32-2787 Telephone encounter Note* Telephone Encounter - Elba Platt - 07/18/2024 2:54 PM EDT P/c appointment reminder. Pt confirmed [facility] HospitalVjsetrfslg26-63-3552 Miscellaneous Notes* Telephone Encounter - Elba Platt - 07/18/2024 2:54 PM EDT P/c appointment reminder. Pt confirmed documented in this encounterEastern Missouri State HospitalUssusumxyr70-18-2467 History of Present illness Narrative* Veda Rome DO - 04/18/2024 2:07 PM ESTAssociated Problem(s): Type 2 diabetes mell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, without long-term current use of insulin (HCC) ([facility]) During the appointment today all pertinent labs, [...] able to use. She is in a senior care facility right now. He is asking if he could use it. SUBJECTIVE: PROBLEM LIST SOCIAL ALLERGIES: Patient Active Problem List Diagnosis HTN (hypertension) (CMS/HCC) Mixed hyperlipidemia (CMS/HCC) Mobitz type II atrioventricular block Localized, primary osteoarthritis of hand DVT (deep venous thrombosis) ([facility]/HCC) Non-ischemic cardiomyopathy ([facility]) Pacemaker Type 2 diabetes mell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, without long-term current use of insulin (HCC) ([facility]) Social History Tobacco Use Smoking status: Never [...] 1,000 mg BID with meals [facility] HEMOGLOBIN A1C/HEMOGLOBIN.TOTAL:MFR:PT:BLD:QN: 8.1 Outpatient prescription Medication marked [...] without long-term current use of insulin ([facility]) ([facility]) During the appointment today all pertinent labs, [...] with the patient today. documented in this encounterEastern Missouri State HospitalNskhemthcy20-22-2989 Telephone encounter Note* Telephone Encounter - Elba Platt - 04/15/2024 1:06 PM EST LVM appointment reminder [facility] HospitalRsjdkxpkbb45-98-1017 Miscellaneous Notes* Telephone Encounter - Elba Platt - 04/15/2024 1:06 PM EST LVM appointment reminder documented in this encounterEastern Missouri State HospitalQirooljwli93-21-9015 History of Present illness Narrative* Stephanie Brown MD - 03/09/2024 3:20 PM EST Karen Jiménez is a 83 y.o. male Chief Complaint Follow-up HPI 83-year-old white male who has previously followed with Dr. Purvis. He has history of complete heart block [...] been followed by h is PCP. Assessment/recommendations: 3-zyfh-lmvbd AV block status post permanent pacemaker 2022 [...] direction and in the presence of Stephanie Brown MD. Provider Attestation - Scribe documentation All medical record entries made by the Scribe were at my direction and personally dictated by me. Ihave reviewed the chart and agree that the record accurately reflects my personal performance of the history, physical exam, discussion and plan. [facility] Work Phone: 1(607) 656-349001-08-2025 Instructions* Patient Instructions* Ashtyn Rendon RN - [...] follow up per routine documented in [facility]Fisher[facility] Work Phone: 1(352) 490-791112-18-2024 History of Present illness Narrative* Jr. Gini Cárdenas, DO - 02/17/2024 10:00 AM EST Images from [...] for requiring urgent evaluation. documented in this encounterEastern Missouri State HospitalDwdylygoib01-14-1347 History of Present illness Narrative* Veda Rome DO - 01/18/2024 12:37 PM ESTAssociated Problem(s): Type 2 diabetes mellitus with hyperglycemia, without long-term current use of insulin ([facility]) During the appointment today all pertinent labs, [...] without long-term current use of insulin (HCC) ([facility]) Social History Tobacco Use Smoking status: Never [...] as long-term Patient-reported The ASCVD Risk score (Chalmers DK, et al., 2019) failed to calculate [...] hyperglycemia, without long-term current use of insulin ([facility]) During the appointment today all pertinent labs, [...] without long-term current use of insulin (HCC) ([facility]) Relevant Medications insulin glargine (Lantus SoloStar) 100 [...] with the patient today. documented in this [facility]11-14-2024 Telephone encounter Note* Telephone Encounter - Clara Ramos LPN - 01/14/2024 10:19 AM EST noted [facility] HospitalJkgxiiynpz02-06-3799 Miscellaneous Notes* Telephone Encounter - Clara Ramos LPN - 01/14/2024 10:19 AM EST noted * Telephone Encounter - Elba Platt - 01/14/2024 10:11 AM EST P/c to remind pt of appointment. Pt had to reschedule because his has testing all day tomorrow. Rescheduled for Thursday at 9:15. He voiced understanding documented in this encounterEastern Missouri State HospitalVovvtyfkbf39-60-5026 Telephone encounter Note* Telephone Encounter - Elba Platt - 01/14/2024 10:11 AM EST P/c to remind pt of appointment. Pt had to reschedule because his has testing all day tomorrow. Rescheduled for Thursday at 9:15. He voiced understanding [facility] HospitalJmfitcecyt95-54-5924 History of Present illness Narrative* Kennedy Calderon DPM - 12/10/2023 1:40 PM EDT Patient: [...] Negative palpable pedal pulses bilaterally NEURO: 5.07 Romney Claudia monofilament test intact to digits and forefoot bilaterally 125Hz tuning fork diminished to 1st MPJ bilaterally ORTHO: Positive pain on palpation to nails 1 through 10 ASSESSMENT 1. Type 2 diabetes mellitus without complication, unspecified whether prison insulin use ([facility]) 2. Pain due to onychomycosis of toenails [...] feet and discussed proper shoe gear. Kennedy Calderon DPM documented in this encounterEastern Missouri State HospitalMghcetzwhy65-86-0656 History of Present illness Narrative* Veda Rome DO - 12/03/2023 4:02 PM EDTAssociated Problem(s): Type 2 diabetes mellitus with hyperglycemia, without long-term current use of insulin ([facility]) During the appointment today all pertinent labs, [...] occasion (cinnamon toast crunch- low sugar) Lunch: [place] (ham), fruit (peaches, pears, melon) Dinner: Varies- [...] without long-term current use of insulin (HCC) ([facility]) Social History Tobacco Use Smoking status: Never [...] hyperglycemia, without long-term current use of insulin ([facility]) During the appointment today all pertinent labs, [...] without long-term current use of insulin ([facility]) ([facility]) - Primary Relevant Medications empagliflozin (Jardiance) 25 [...] with the patient today. documented in this encounterEastern Missouri State HospitalIyrgmssvsu21-82-8358 Telephone encounter Note* Telephone Encounter - Elba Platt - 12/02/2023 12:50 PM EDT Pt's answered the phone. Reminded her of her 's appointment tomorrow with Dr. Mccollum. voiced understanding [facility] HospitalEqoglufyus96-47-5588 Miscellaneous Notes* Telephone Encounter - Elba Platt - 12/02/2023 12:50 PM EDT Pt's answered the phone. Reminded her of her 's appointment tomorrow with Dr. Mccollum. voiced understanding documented in this [facility]05-24-2024 History of Present illness Narrative* Henrry Purvis MD - 07/24/2023 1:40 PM EDT Karen [...] direction and in the presence of Roma Purvis MD. Provider Attestation - Scribe documentation All medical record entries made by the Scribe were at my direction and personally dictated by me. Ihave reviewed the chart and agree that the record accurately reflects my personal performance of the history, physical exam, discussion and plan. documented in this [facility] Work Phone: 1(266) 394-707805-24-2024 Instructions* Patient Instructions* Sal Henson MA - [...] time of your visit. documented in this [facility] Work Phone: 1(698) 400-264602-07-2024 History of Present illness Narrative* TODD Driver [...] spacewith 2ml of 2 % lidocaine (Code 92744 RT) Procedure, treatment alternatives, risks and benefits [...] urgent evaluation. TODD Driver documented in this encounterEastern Missouri State HospitalAobnuqrcgr46-07-5840 History of Present illness Narrative* Henrry Purvis MD - 01/14/2023 3:10 PM EST Subjective Emmanuel Jessy is a 82 y.o. male Chief Complaint [...] 3. Obesity (BMI 30.0-34.9) [facility] Work Phone: 1(327) 764-637611-15-2023 Instructions* Patient Instructions* Lupe Burns LPN - [...] follow up per routine documented in this encounterFisher[facility] Work Phone: 1(213) 345-750311-01-2023 Progress note Author Henrry Purvis [facility] December 31, 2022 10:33amNote Date/TimeNov2022 10:25[place] [address] Cardiology Progress Note Signed Patient: Emmanuel Jiménez MR#: [id number] : 1940 Acct:[id number] Age/Sex: 82 / M Adm Date: 3 Loc: 3T Room: [address] [place] [address] Type: ADM IN Attending Dr: Katie Osborne MD Copies to: ~ Date of Service: 12/31/2022 Subjective Principal diagnosis: Mobitz type II second-degree AV block Interval history: Patient seen postop day #1. Operative site is clean and dry without hematoma. Pacemaker check satisfactory. Chest x-ray satisfactory. Suitable for discharge. His outpatient pharmacologic regimen should be continued. Clindamycin for 2days. Wound check in a week. Exam Physical [...] % (Auto) 61.2 Lymph % (Auto) 27.7 [place] % (Auto) 8.9 Eos % (Auto) 1.6 Baso % (Auto) 0.6 Nucleat RBC Rel Count 0.0 Neut # (Auto) 4.1 Lymph # (Auto) 1.9 [place] # (Auto) 0.6 Eos # (Auto) 0.1 Baso # (Auto) 0.0 PHA Creatinine Clear Sodium Potassium Chloride Carbon Dioxide Anion Gap BUN Creatinine Est GFR (CKD-EPI) Glucose POC Glucose 206 183 Calcium Magnesium 12/31/22 06:36 Corrected WBC Uncorrected WBC Count RBC Hgb Hct MCV MCH MCHC RDW Plt Count MPV Neut % (Auto) Lymph % (Auto) [place] % (Auto) Eos % (Auto) Baso % (Auto) Nucleat RBC Rel Count Neut # (Auto) Lymph # (Auto) [place] # (Auto) Eos # (Auto) Baso # [...] clinic as scheduled. Follow-up with his primary economics consultant Dr. Hugo Moser henceforth Documented By: Henrry Purvis MD 102 Signed By: <Electronically signed by MD Henrry Purvis> 12/31/22 1033 [facility] Work Phone: 1(498) 720-870710-31-2023 Progress note Author Katie Osborne [facility] December 30, 2022 2:12pmNote Date/TimeOct2022 2:12p[place] [address] Hospitalist Progress Note Signed Patient: Emmanuel Jiménez MR#: [id number] : 1940 Acct:[id number] Age/Sex: 82 / M Adm Date: 3 Loc: 3T Room: [address] [place] [address] Type: ADM IN Attending Dr: Katie Osborne MD Copies to: ~ Date of Service: 12/30/2022 Subjective Subjective Narrative: Patient was seen and evaluated at bedside this morning. operating room surgical technician was reviewed, patient continued to have heart rate as low as upper 30s to 40s. He was given atropine overnight . he does report symptoms of dizziness, lightheadedness, shortness of breath on exertion. Cardiology following. Heis NPO today for pacemaker implant. Exam Physical [...] Plan: ? Patient's baseline is unknown, at [facility] his creatinine is 1.6, today here it is 1.4 ? Patient did receive atropine at [facility], his heart rate has been improved while admitted here ? Monitor morning BMPs (3) Diabetes mellitus: Plan: ? Continue home medications except for metformin in anticipation of any possibleprocedure requiringcontrast dye ? Empagliflozin, sitagliptin, ascarbose (4) HTN [...] <Electronically signed by Katie Osborne MD> 12/30/22 [facility] Work Phone: 1(911) 778-482310-30-2023 Progress note Author Henrry Purvis [facility] December 29, 2022 2:16pmNote Date/TimeOct2022 2:16pm[place] [address] Cardiology Progress Note Signed Patient: Emmanuel Jiménez MR#: [id number] : 1940 Acct:[id number] Age/Sex: 82 / M Adm Date: 3 Loc: Room: [address] [place] [address] Type: ADM IN Attending Dr: Katie Osborne [...] second-degree AV block. Intermittently he is conducting ky [id number]-xs-emibjmcvxr. No observed manifestations of complete heart block. The patient several months ago was diagnosed with a abnormal echo . Diagnosis was made by Dr. Moser his physician. At that time he was placed on Entresto and Jardiance. This leads me to suspect thepatient was identified as having a cardiomyopathy. Echocardiogram performed today, though, demonstrates normalization of ejection fraction at approximately 55%. No other structural disease findings. The patient's bradycardia arrhythmia has occurred, though, in the absence of negative chronotropic or AV cici blocking drugs. Because of this we believed to be on the basis of intrinsic breakdown ofhis conduction system. I had a long detailed [...] % (Auto) 48.1 Lymph % (Auto) 41.3 [place] % (Auto) 8.4 Eos % (Auto) 1.4 Baso % (Auto) 0.8 Nucleat RBC Rel Count 0.1 Neut # (Auto) 3.6 Lymph # (Auto) 3.1 [place] # (Auto) 0.6 Eos # (Auto) 0.1 [...] MPV Neut % (Auto) Lymph % (Auto) [place] % (Auto) Eos % (Auto) Baso % (Auto) Nucleat RBC Rel Count Neut # (Auto) Lymph # (Auto) [place] # (Auto) Eos # (Auto) Baso # [...] to be performed Thursday. Documented By: Henrry Purvis MD 1411 Signed By: <Electronically signed by MD Henrry Purvis> 12/29/22 141 [facility] Work Phone: 1([phone]) 641-365510-30-2023 Progress note Author Katie Osborne [facility] December 29, 2022 1:57pmNote Date/TimeOct2022 1:57pm[place] [address] Hospitalist Progress Note Signed Patient: Emmanuel Jiménez MR#: [id number] : 1940 Acct:[id number] Age/Sex: 82 / M Adm Date: 3 Loc: 3T Room: [address] [place] [address] Type: ADM IN Attending Dr: Katie Osborne MD Copies to: ~ Date of Service: 12/29/2022 Subjective Subjective Narrative: Patient was seen and evaluated at bedside this morning. operating room surgical technician was reviewed, patient continued to have [...] 3 or fever Atorvastatin Calcium 80 mg 10/30/23 09:00 12/29/22 08:08 Atorvastatin 80 Mg Tablet [...] Plan: ? Patient's baseline is unknown, at [facility] his creatinine is 1.6, today here it is 1.4 ? Patient did receive atropine at [facility], his heart rate has been improved while admitted here ? Monitor morning BMPs (3) Diabetes mellitus: Plan: ? Continue home medications except for metformin in anticipation of any possibleprocedure requiringcontrast dye ? Empagliflozin, sitagliptin, ascarbose (4) HTN [...] signed by Katie Osborne MD> 12/29/[address] [place] [address] Work Phone: 1([phone] 101-701810-29-2023 Consult note Author Haylee Benedict [facility] December 28, 2022 7:25pmNote Date/TimeOct2022 7:22pm[place] [address] Cardiology Consult Note Signed Patient: Emmanuel Jiménez MR#: [id number] : 1940 Acct:[id number] Age/Sex: 82 / M Adm Date: 3 Loc: Room: [address] [place] [address] Type: ADM IN Attending Dr: Jarred Cline [...] are negative unless noted below or in [facility] Social History Smoking Status: Never smoker Meds [...] 24h mp (Janumet XR) 100 - 1,000 tabPO DAILY 12/28/22 [History Confirmed 12/28/22] Exam Physical [...] high-grade AV block, will consult with Dr. Purvis for PPM placement. Keep n.p.o. past midnight. -Check 2D echocardiogram. -Avoid AV cici blockers. -Continue monitoring on telemetry. Documented By: Haylee Benedict MD 12/28/22 1216 Signed By: <Electronically signed by Haylee Benedict MD> 12/28/22 1124 [facility] Work Phone: 1(970) 744-691810-29-2023 History and physical note Author Jarred Cline [facility] December 28, 2022 1:36pmNote Date/TimeOct2022 1:21pmAng[place] [id number] Hospitalist H&P Signed Patient: Emmanuel Jiménez MR#: [id number] : 1940 Acct:[id number] Age/Sex: 82 / M Adm Date: 3 Loc: Room: [address] [place] [address] Type: ADM IN Attending Dr: Jarred Cline DO Copies to: Hugo Moser Jr, DO Jarred Cline, ~ HPI DATE OF EXAMINATION: 12/28/22 CHIEF COMPLAINT: low heart rate HISTORY OF PRESENT ILLNESS: Mr Jiménez is an 82-year-old male with past medical history of diabetes and hypertension who presents hospital today with chief complaint of low heart rate. He was transferred here from [facility], he has been feeling exertional dyspnea [...] to the emergency room. He went to [facility] was then transferred back here dueto there being no cardiology services at [facility]. Patient denies any cough with his shortness [...] 24h mp (Janumet XR) 100 - 1,000 tabPO 1XD 12/28/22 [History Confirmed 12/28/22] Exam Physical [...] Plan: ? Patient's baseline is unknown, at [facility] his creatinine is 1.6, today here it is 1.4 ? Likely secondary to decreased perfusion from bradycardia ? Patient did receive atropine at [facility], his heart rate has been improved while admitted here ? Monitor morning BMPs (3) Diabetes mellitus: Plan: ? Continue home medications except for metformin in anticipation of any possibleprocedure requiringcontrast dye ? Empagliflozin, sitagliptin, ascarbose (4) HTN [...] setting as: INPATIENT because of an expectation ofan over 2 midnight stay. Estimated length of stay (# of days): 3 Documented By: Jarred Cline DO 12/28/22 1319 Signed By: <Electronically signed by Jarred Cline DO> 12/28/22 5916 [facility] Work Phone: Discharge summary Author Katie Osborne [facility] December 31, 2022 12:42pmNote Date/TimeNov2022 12:43pm[place] [address] Discharge Summary Signed Patient: Emmanuel Jiménez MR#: [id number] : 1940 Acct:[id number] Age/Sex: 82 / M Adm Date: 3 Loc: Room: [address] [place] [address]: Katie Osborne MD Copies to: [...] heart rate. He was transferred here from [facility], he has been feeling exertional dyspnea [...] in his presenting symptoms. He is ambulating inhis room comfortably today. he was cleared from cardiology standpoint for discharge with outpatientfollow-ups as directed and instructions. Discussed with patient at bedside, all question answered, patient is suitable for discharge at this time with instructions as provided. Patient is comfortableand in agreement with discharge planning at this time. Condition Condition at Discharge: Stable Time Spent with Patient Time spent providing/coordinating discharge services (# min): 26 Surgeries and Procedures Operation Date: 12/30/22 14:00 Actual Procedures p OR Pacemaker Insertion(Not Applicable) - Henrry Purvis MD Diagnostic Studies Completed and Pending Studies [...] Sodium 137, Potassium 4.1, Chloride 106, Carbon Zmckucq10.9, Anion Gap 12.2, BUN 23, Creatinine 1.20, Est GFR (CKD- EPI) > 60.0, Glucose 175 H, Calcium 8.9, Magnesium 2.1 12/31/22 06:36: Corrected WBC 6.7, Uncorrected WBC Count 6.7, RBC 4.27, Hgb 13.0, Hct 39.1, MCV 91.5, MCH 30.5, MCHC 33.3, RDW 14.9 H, Plt Count 148 L, MPV 7.2, Neut % (Auto) 61.2, Lymph % (Auto) 27.7, [place] % (Auto) 8.9, Eos % (Auto) 1.6, Baso % (Auto) 0.6, Nucleat RBC Rel Count 0.0, Neut # (Auto) 4.1, Lymph # (Auto) 1.9, [place] # (Auto) 0.6, Eos # (Auto) 0.1, [...] device check at [facility] 04/15/2023. 3. Pacemaker/ICD clinic appointment at [facility] on 04/15/2023 at 11:00am . 4. Office [...] signed by Katie Osborne MD> 12/31/22 1242 [facility] Work Phone: Evaluation note* Diagnosis Onset Date Resolution Status ZAC (acute kidney injury) acuteDiabetes mellitusacuteHTN (hypertension)acuteMobitz type 2 second degree AV blockacute [facility] Work Phone: Evaluation note* Diagnosis AV block, Mobitz II Mobitz (type) II atrioventricular block Pacemaker Cardiac pacemaker in situ Obesity (BMI 30.0-34.9) documented in this encounter [facility] Work Phone: Evaluation note* Diagnosis Acute pain of right shoulder Rotator cuff arthropathy, right Arthritis of right acromioclavicular joint [facility] HealthcareEvaluation noteNo assessment information availableAultman Alliance Community Hospital Work Phone: Evaluation note* Diagnosis Non-ischemic cardiomyopathy (Multi)- Primary Other primary cardiomyopathies AV block, Mobitz II Mobitz (type) II atrioventricular block Pacemaker Cardiac pacemaker in situ Mixed hyperlipidemia BMI 30.0-30.9,adult documented in this encounter [facility] Work Phone: Evaluation note* Diagnosis Type 2 diabetes mell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, without long-term current use of insulin (HCC) ([facility])- Primary Type 2 diabetes mellitus with hyperglycemia, without long-term current use of insulin ([facility]/HCC) [facility]* Diagnosis Type 2 diabetes mellitus without complication, unspecified whether prison insulin use (CMS/HCC)- Primary Pain due to onychomycosis of toenails of both feet [facility]* Diagnosis Type 2 diabetes mell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, without long-term current use of insulin (HCC) (CMS/HCC)- Primary Type 2 diabetes mellitus with hyperglycemia, without long-term current use of insulin (CMS/HCC) Type 2 diabetes mell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, without long-term current use of insulin (HCC) ([facility]) Type 2 diabetes mellitus with hyperglycemia, without long-term current use of insulin (CMS/HCC) [facility]* Diagnosis Type 2 diabetes mell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, without long-term current use of insulin (HCC) ([facility]/HCC)- Primary Type 2 diabetes mellitus with hyperglycemia, without long-term current use of insulin (CMS/HCC) Type 2 diabetes mell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, without long-term current use of insulin (HCC) ([facility]/HCC) Type 2 diabetes mellitus with hyperglycemia, without long-term current use of insulin ([facility]/HCC) Rotator cuff arthropathy, right- Primary Shoulder arthritis Unspecified arthropathy, shoulder region [facility]* Diagnosis Pacemaker- Primary Cardiac pacemaker in situ AV block, Mobitz II Mobitz (type) II atrioventricular block Mixed hyperlipidemia Paroxysmal atrial fibrillation (Multi) Atrial fibrillation Mild tricuspid regurgitation Diabetes mellitus type II, non insulin dependent (Multi) Type II or unspecified type diabetes mellitus without mention of complication, not stated as uncontrolled BMI 28.0-28.9,adult Never smoked tobacco Overweight documented in this encounter [facility] Work Phone: Evaluation note* Diagnosis Type 2 diabetes mell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, without long-term current use of insulin (HCC) ([facility] documented in this encounter [facility] HealthcareEvaluation note* Diagnosis Paroxysmal atrial fibrillation (Multi)- [...] risk medication use documented in this encounter [facility] Work Phone: Hospital Discharge instructions [...] device check at [facility] 04/15/2023. 3. Pacemaker/ICD clinic appointment at [facility] on 04/15/2023 at 11:00am . 4. Office visit with Dr. Moser. [][facility] Work Phone: Reason for referral (narrative)* Consultation (Routine) - AuthorizedSpecialtyDiagnoses / ProceduresReferred By Contact Referred To ContactCardiology Diagnoses AV block, Mobitz II Pacemaker Procedures Follow Up In Cardiology Henrry Purvis MD [address] [facility], [address] [address] Henrry Purvis MD [address], [address] [address] Referral IDStatusReasonStart DateExpiration DateVisits RequestedVisits [id number]/15/202311/ [facility] Work Phone: reason for referral (narrative)* Consultation (Routine) - AuthorizedSpecialtyDiagnoses / ProceduresReferred By Contact Referred To ContactCardiology Diagnoses AV block, Mobitz II Procedures Follow Up In Cardiology Henrry Purvis MD [address] [place] [address], [address] [address] Stephanie Brown MD [address] [place] [address], [address] [address] Referral IDStatusReasonStart DateExpiration DateVisits RequestedVisits [id number]/24/20245/ [facility] Work Phone: Reuunx for referral (narrative)No reason for referral information availableAultman Alliance Community Hospital Work Phone: Summary Purpose Family History [...] AV block Chief Complaint Symptomatic Bradycar susan i44.1Reason for VisitAKI (acute kidney injury) Diabetes mellitus HTN (hypertension) Mobitz type 2 [...] 18, 2024 2: 45pm Reason for Referral SpecialtyDiagnoses / ProceduresReferred By ContactReferred To ContactOrthopaedic Surgery Diagnoses Arthritis of right acromioclavicular joint Procedures M Inj/Asp: R acromioclavicular Negro Brown PA [address] [facility] [address] [place] [address] Referral IDStatusReasonStart DateExpiration DateVisits RequestedVisits [id number] [id number] / Procedures Referred By ContactReferred To ContactOrthopaedic Surgery Diagnoses Rotator cuff arthropathy, right Procedures L Inj/Asp: R subacromial bursa Negro Brown PA [address] [facility] [address] [place] [address] Referral IDStatusReasonStart DateExpiration DateVisits RequestedVisits [id number]/7/20248/5/202411 Additional Source Comments (unrecognized sect ion and content) No Status Records FoundNo Status Records FoundNo Status Records FoundNo Status Records Found INFORMATION SOURCE (unrecogn ized section and content) DATE CREATED AUTHOR 05/25/2022 [facility] DATE CREATED AUTHOR AUTHOR'S ORGANIZ ATION 10/16/2024 [facility] DATE CREATED AUTHOR AUTHOR'S ORGANIZ ATION 10/23/2024 [facility] DATE CREATED AUTHOR AUTHOR'S ORGANIZ ATION 11/15/2024 [facility] [employer] Teams (unrecognized sec tion and content) Team Status: Active Member Role Status Dates Hugo Moser JR DO Primary Care Provider Active Team Status: Active Member Role Status Dates Hugo Moser JR DO Primary Care Provider Active Start: December 01, 2023 Henrry Purvis MDOther ProviderActiveStart: December 01, 2023 Cristian Teran MDAttending ProviderActiveStart: December 01, 2023 Team Status: Active Member Role Status Dates Hugo Moser JR DO Primary Care Provider Active Start: January 15, 2024 Stephanie Brown MDOther ProviderActiveStart: January 15, 2024 Cristian Teran MDAttending ProviderActiveStart: January 15, 2024 Team Status: Inactive Member Role Status Dates Hugo Moser JR DO Primary Care Provider Active Jarred Cline , DOAdmit ProviderActiveObanegrito Osborne , MDAttending Provider ActiveAna Maria Prakash RNOther ProviderActiveW Tom Chaparro , DOOther ProviderActiveStephanie Brown MDOther ProviderActiveWirio Purvis MDOther ProviderActiveFarzana Escalera MDOther ProviderActiveHugo Johnson MDOther ProviderActiveDonna Thang Salas APRNOther Provider ActiveNatacha Padron MDOther ProviderActiveMohammed Feliciano Douglas MDOther ProviderActiveJordan Bolanos MDOther ProviderActiveCarol Josy Woodward CLINICAL RESEARCH PHYSICIAN-BCOther ProviderActiveLauren Steiner MDOther ProviderActive Team Status: Inactive Member Role Status Dates Hugo Moser JR DO Primary Care Provider Active Jovanna Ramirez ProviderActiveTeam MemberRelationship SpecialtyStart DateEnd Date Hugo Moser DO [facility] [place] [address] PCP - GeneralInternal Fskwbdwp03/1/23Team MemberRelationshipSpecialtyStart Date End Date Hugo Moser MD [address] [place] [address] PCP - GeneralInternal Medicine04/08/23 Team Status: Inactive Member Role Status Dates Hugo Moser JR DO Primary Care Provider Active Start: April 15, 2023 End: April 15, 2023Damir Ramirezing ProviderActive Start: April 15, 2023 End: April 15Asia Barth ProviderActiveStart: April 15, 2023 End: April 15, 2023Team MemberRelationshipSpecialtyStart DateEnd Date Hugo Moser DO PCP - GeneralInternal Jhgovcdv07/1/23 Team Status: Inactive Member Role Status Dates Hugo Moser JR DO Primary Care Provider Active Start: October 16, 2023 End: October 16, 2023Henrry Purvis MDAttending ProviderActiveStart: October 16, 2023 End: October 16, 2023Team MemberRelationshipSpecialtyStart DateEnd Date Hugo Moser MD [facility] [place], [place] [id number] PCP - GeneralInternal Medicine04/08/23Team MemberRelationshipSpecialtyStart Date End Date Hugo Moser MD [address] [place] [address] PCP - GeneralInternal Medicine04/08/23Team MemberRelationshipSpecialtyStart Date End Date Hugo Moser MD [address] [place] [address] PCP - GeneralInternal Medicine04/08/23Team MemberRelationshipSpecialtyStart Date End Date Hugo Moser MD [address] [place] [address] PCP - GeneralInternal Medicine04/08/23Team MemberRelationshipSpecialtyStart Date End Date Hugo Moser MD [facility] [place] [address] PCP - GeneralInternal Medicine04/08/23Team MemberRelationshipSpecialtyStart Date End Date Hugo Moser MD [address] [place] [address] PCP - GeneralInternal Medicine04/08/23Team MemberRelationshipSpecialtyStart Date End Date Hugo Moser MD [address] [place] [address] PCP - GeneralInternal Medicine04/08/23 MemberRelationshipSpecialtyStart Date End Date Hugo Moser MD [address] [place] [address] PCP - GeneralInternal Medicine04/08/23Te MemberRelationshipSpecialtyStart Date End Date Hugo Moser MD [address] [place] [address] PCP - GeneralInternal Medicine04/08/23Te MemberRelationshipSpecialtyStart Date End Date Hugo Moser DO PCP - GeneralInternal Jkwfkdrz77/1/23 Team Status: Active Member Role Status Dates Hugo Moser JR DO Primary Care Provider Active Start: April 15, 2024 Henrry Purvis MDOther ProviderActiveStart: April 15, 2024 Jovanna Prince ProviderActiveStart: April 15, 2024 Team Status: Inactive Member Role Status Dates Hugo Moser JR DO Primary Care Provider Active Start: April 15, 2024 End: April 15, 2024Jovanna Ramirez ProviderActive Start: April 15, 2024 End: April 15, 2024Team MemberRelationshipSpecialtyStart DateEnd Date Hugo Moser MD [address] [place] [address] PCP - GeneralInternal Medicine04/08/23Team MemberRelationshipSpecialtyStart Date End Date Hugo Moser MD [facility] [place] [address] PCP - GeneralInternal Medicine04/08/23Team MemberRelationshipSpecialtyStart Date End Date Hugo Moser MD [facility] [place] [address] PCP - GeneralInternal Medicine04/08/23Team MemberRelationshipSpecialtyStart Date End Date Hugo Moser MD [facility] [place] [address] PCP - GeneralInternal Medicine04/08/23 Team Status: Active Member Role Status Dates Hugo Moser JR DO Primary Care Provider Active Start: October 18, 2024 Stephanie Brown MDOther ProviderActiveStart: October 18, 2024 Cristian Teran MDAttending ProviderActiveStart: October 18, 2024 Team MemberRelationshipSpecialtyStart DateEnd Date Hugo Moser DO [facility] [place] [address] PCP - GeneralInternal Medicine11/09/24 Reason for Visit (unrecogniz ed section and content) ReasonCommentsFollow-upSwelling and pain at pacemaker site.Placed 2 weeks ago. SpecialtyDiagnoses / ProceduresReferred By ContactReferred To ContactCardiology Diagnoses AV block, Mobitz II Pacemaker Procedures Follow Up In Cardiology Henrry Purvis MD [address], [place] [address] Referral IDStatusReasonStart DateExpiration DateVisits RequestedVisits [id number]/15/202311/14/688269HnatymLiefcdptUrfvRkyrfg CommentsFollow-up6 monthSpecialtyDiagnoses / ProceduresReferred By Contact Referred To ContactCardiology Diagnoses AV block, Mobitz II Pacemaker Procedures Follow Up In Cardiology Henrry Purvis MD [address] [place] [address], [place] [address] Henrry Purvis MD [address] [place] [address], [place] [address] Referral IDStatusReasonStart DateExpiration DateVisits RequestedVisits [id number]/15/202311/14/491477OdlyakMtbawvbfXizwltosOgtgvx CommentsDM Foot CareDm nail icvtYfbaxbNuyxucrxHkohmv-gpQtmugsRxkorjluLuhorl-kz5h SpecialtyDiagnoses / ProceduresReferred By ContactReferred To ContactCardiology Diagnoses AV block, Mobitz II Procedures Follow Up In Cardiology Henrry Purvis MD Ibrahim, Hassan M, MD [address] [place] [address], [place] [address] Phone: tel: fax: Referral IDStatusReasonStart DateExpiration DateVisits RequestedVisits [id number]/24/20245/845090HhefuzBsgkv DateComments Appointment Hdeviqjocoqb39/14/2025ReasonOnset DateCommentsAppointment Lcovxcovvskr83/19/2025ReasonOnset DateCommentsBlood Sugar Bpmrhlm5708/02/2024 ReasonCommentsFollow-up6 month follow up for PacemakerSpecialtyDiagnoses / ProceduresReferred By ContactReferred To ContactCardiology Diagnoses Non-ischemic cardiomyopathy (Multi) Procedures Follow Up In Cardiology Stephanie Brown MD [address], [address] [address] Phone: tel: fax: Stephanie Brown MD [address], [facility] [address] [place] [address] Phone: tel: fax: Referral IDStatusReasonStart DateExpiration DateVisits RequestedVisits [id number]/8/20251/8/202611 Goals (unrecognized section and content) Goals may [...] BE BASED ON THE PRIMARY CLINICAL RECORDS. [facility]. provides no warranty or guarantee of the accuracy or completeness of information in this document.
[2025-01-01 07:51] LABS: Hematocrit 47.7 % (42.0-54.0); Hemoglobin 15.2 g/dL (14.0-18.0); Immature Granulocytes Abs Auto 0.04 10^3/uL (0.00-0.03); Immature Granulocytes Pct Auto 0.6 % (0.0-0.5); Lymphocytes Absolute Auto 2.9 10^3/uL (1.2-3.8); Mean Corpuscular HGB Conc 31.9 g/dL (29.9-35.2); Mean Corpuscular Hemoglobin 30.0 pg (25.9-34.0); Mean Corpuscular Volume 94.3 fL (80.0-94.0); Platelet Count 179 10^3/uL (150-450); Red Blood Count 5.06 10^6/uL (4.70-6.10); White Blood Count 7.3 10^3/uL (4.0-11.0)
[2025-01-01 07:56] LABS: Glucose Urine UA >=1000 mg/dL (NEGATIVE)
[2025-01-01 08:05] LABS: Alanine Aminotransferase 16 U/L (16-63); Albumin Globulin Ratio 0.9; Albumin Level 3.4 g/dL (3.4-5.0); Alkaline Phosphatase 97 U/L (46-116); Anion Gap 13.7; Aspartate Amino Transferase 20 U/L (15-37); Blood Urea Nitrogen 30.0 mg/dL (7.0-18.0); Calcium 9.5 mg/dL (8.5-10.1); Carbon Dioxide 24.0 mmol/L (21.0-32.0); Chloride 105 mmol/L (98-107); Estimated GFR (African America >60 (>=60 mL/min/1.73m^2); Estimated GFR (Non-African Ame 53 (>=60 mL/min/1.73m^2); Globulin 4.0 g/dL; Glucose 204 mg/dL (74-106); Potassium 4.7 mmol/L (3.5-5.1); Sodium 138 mmol/L (136-145); Total Protein 7.4 g/dL (6.4-8.2)
[2025-01-01 08:09] LABS: INR 1.12; Partial Thromboplastin Time 32.2 sec (22.3-36.2); Prothrombin Time 11.7 sec (9.0-11.6)
[2025-01-01 08:26] LABS: Cast Seen? NONE SEEN #/LPF (NONE SEEN); Crystals Seen? None Seen #/HPF (None Seen)
--- NOTE | 2025-01-01 08:26 | ED.MALEGU1 ---
HPI - Male Genitourinary General Chief complaint: Urogenital-Male Stated complaint: BLOOD IN URINE Time Seen by Provider: 01/01/25 07:28 Source: patient Mode of arrival: walk-in Limitations: no limitations History of Present Illness HPI Narrative: cc - blood in urine Patient was diagnosed with UTI 1 week ago and started on doxycycline by his primary care provider. He said that he initially started to feel better but then within the last 12 hours he noticed the blood has returned to his urine. He is having dysuria symptoms. He said his urine looked like coffee this morning. No clots or difficulty passing urine. He is a diabetic. No fever or chills. No flank pain or abdominal pain. No nausea vomiting or diarrhea. No cough or cold symptoms. No penile pain or scrotal pain. Related Data Home Medications ?Medication ?Instructions ?Recorded ?Confirmed acarbose 100 mg tablet mg 03/19/24 empagliflozin .ROUTE 03/19/24 empagliflozin .ROUTE 03/19/24 ezetimibe 10 mg tablet mg 03/19/24 finerenone 20 mg tablet (Kerendia) 20 mg PO DAILY 03/19/24 03/19/24 metformin 1,000 mg tablet mg 03/19/24 rosuvastatin 40 mg tablet mg 03/19/24 Previous Rx's ?Medication ?Instructions ?Recorded levofloxacin 750 mg tablet 750 mg PO DAILY 4 days #4 tabs 03/19/24 oseltamivir 75 mg capsule (Tamiflu) 75 mg PO BID 5 days #10 caps 03/19/24 cephalexin 500 mg capsule 500 mg PO BID 7 days #14 caps 01/01/25 Allergies Allergy/AdvReac Type Severity Reaction Status Date / Time No Known Drug Allergies Allergy Verified 01/01/25 07:33 PFSH PFSH Social History Little interest or pleasure in doing things: not at all Feeling down, depressed, or hopeless: not at all Exam Narrative Exam Narrative: Nurses notes and vital signs reviewed and patient is not hypoxic. afebrile General: Well-appearing and in no apparent distress. Skin: Warm, dry, no pallor noted. Eye: Pupils are equal, round and EOMI. No scleral icterus. Ears, Nose, Mouth, and Throat: Oral mucosa is moist Cardiovascular: Regular Rate and Rhythm without murmur, gallop or rub. Respiratory: No accessory muscle use or respiratory distress. Lungs are clear to auscultation, no wheezing, rales or rhonchi Back: No CVA tenderness Musculoskeletal: normal ROM, no calf or popliteal tenderness, no lower extremity edema/swelling GI: Abdomen is soft, non-distended. Normal bowel sounds. No suprapubic tenderness to palpation. No rebound, guarding, or rigidity noted. Neurological: A&O x4. No cranial nerve dysfunction observed. No truncal ataxia. Moves all extremities. Sensation intact. Psychiatric: Cooperative and interactive. Normal mood and affect. Constitutional Vital Signs, click to edit/add: Last Vital Signs Temp 97.7 F 01/01/25 07:33 Pulse 70 01/01/25 07:33 Resp 16 01/01/25 07:33 BP 118/60 01/01/25 07:33 Pulse Ox 98 01/01/25 07:33 O2 Del Method Room Air 01/01/25 07:33 Course Vital Signs Vital signs: Vital Signs Temperature 97.7 F 01/01/25 07:33 Pulse Rate 70 01/01/25 07:33 Respiratory Rate 16 01/01/25 07:33 Blood Pressure 118/60 01/01/25 07:33 Pulse Oximetry 98 01/01/25 07:33 Oxygen Delivery Method Room Air 01/01/25 07:33 Temperature 97.7 F 01/01/25 07:33 Pulse Rate 70 01/01/25 07:33 Respiratory Rate 16 01/01/25 07:33 Blood Pressure 118/60 01/01/25 07:33 Pulse Oximetry 98 01/01/25 07:33 Oxygen Delivery Method Room Air 01/01/25 07:33 MDM - Male Genitourinary MDM Narrative Medical decision making narrative: Blood and urine obtained and sent for testing. CBC is unremarkable with a normal white blood cell count. CMP with normal electrolytes, normal LFTs, mildly elevated BUN at 30, normal creatinine. Urinalysis is cloudy with large occult blood, trace leukocyte esterase, white cells and bacteria. I do not have a urine culture for reference from the urinalysis that was done last week. The patient has been on doxycycline. We will switch him to keflex - to limit any interactions with other meds - until we get the urine culture. He takes eliquis daily. He will contact his PCP to discuss and promises to return to the ED if his symptoms worsen. Lab Data Attestation: I reviewed the patient's lab results. Labs: Lab Results 01/01/25 01/01/25 Range/Units 07:40 07:44 WBC 7.3 (4.0-11.0) 10^3/uL RBC 5.06 (4.70-6.10) 10^6/uL Hgb 15.2 (14.0-18.0) g/dL Hct 47.7 (42.0-54.0) % MCV 94.3 H (80.0-94.0) fL MCH 30.0 (25.9-34.0) pg MCHC 31.9 (29.9-35.2) g/dL RDW 14.5 (11.0-15.0) % Plt Count 179 (150-450) 10^3/uL MPV 9.3 L (9.5-13.5) fL Neut % (Auto) 47.6 (43.0-75.0) % Lymph % (Auto) 39.6 (20.5-60.0) % Bullitt % (Auto) 8.7 (1.7-12.0) % Eos % (Auto) 2.5 (0.9-7.0) % Baso % (Auto) 1.0 (0.2-2.0) % Neut # (Auto) 3.5 (1.4-6.5) 10^3/uL Lymph # (Auto) 2.9 (1.2-3.8) 10^3/uL Bullitt # (Auto) 0.6 (0.3-0.8) 10^3/uL Eos # (Auto) 0.2 (0.0-0.7) 10^3/uL Baso # (Auto) 0.1 (0.0-0.1) 10^3/uL Abs Immat Gran (auto) 0.04 H (0.00-0.03) 10^3/uL Imm/Tot Granulo (auto) 0.6 H (0.0-0.5) % PT 11.7 H (9.0-11.6) sec INR 1.12 APTT 32.2 (22.3-36.2) sec Sodium 138 (136-145) mmol/L Potassium 4.7 (3.5-5.1) mmol/L Chloride 105 (98-107) mmol/L Carbon Dioxide 24.0 (21.0-32.0) mmol/L Anion Gap 13.7 BUN 30.0 H (7.0-18.0) mg/dL Creatinine 1.28 (0.70-1.30) mg/dL Est GFR ( Amer) >60 (>=60 mL/min/1.73m^2) Est GFR (Non-Af Amer) 53 L (>=60 mL/min/1.73m^2) BUN/Creatinine Ratio 23.4 Glucose 204 H (74-106) mg/dL Calcium 9.5 (8.5-10.1) mg/dL Total Bilirubin 0.6 (0.2-1.0) mg/dL AST 20 (15-37) U/L ALT 16 (16-63) U/L Alkaline Phosphatase 97 (46-116) U/L Total Protein 7.4 (6.4-8.2) g/dL Albumin 3.4 (3.4-5.0) g/dL Globulin 4.0 g/dL Albumin/Globulin Ratio 0.9 Urine Color Dk yellow (YELLOW) Urine Clarity Sl cloudy (CLEAR) Urine pH 5.5 (5.0-9.0) Ur Specific Lockridge 1.020 (1.005-1.025) Urine Protein 100 A (NEG/TRACE) mg/dL Urine Glucose (UA) >=1000 A (NEGATIVE) mg/dL Urine Ketones Negative (NEGATIVE) mg/dL Urine Occult Blood Large A (NEGATIVE) Urine Nitrite Negative (NEGATIVE) Urine Bilirubin Negative (NEGATIVE) Urine Urobilinogen 0.2 (0.2-1.0) EU/dL Ur Leukocyte Esterase Trace A (NEGATIVE) Urine RBC >100 A (0-2) #/HPF Urine WBC 2-5 A (NONE SEEN) #/HPF Ur Squamous Epith Cells Rare (NONE/RARE) #/LPF Urine Crystals None seen (None Seen) #/HPF Urine Bacteria Trace A (NONE SEEN) #/HPF Urine Casts None seen (NONE SEEN) #/LPF Urine Mucus None seen (NONE SEEN) Ur Culture Indicated? No Discharge Plan Discharge Chief Complaint: Urogenital-Male Clinical Impression: Acute UTI, Hematuria Patient Disposition: Home, Self-Care Time of Disposition Decision: 08:35 Prescriptions / Home Meds: New cephalexin 500 mg capsule 500 mg PO BID 7 Days Qty: 14 0RF No Action acarbose 100 mg tablet metformin 1,000 mg tablet ezetimibe 10 mg tablet rosuvastatin 40 mg tablet empagliflozin [Jardiance] .ROUTE Kerendia 20 mg tablet 20 mg PO DAILY empagliflozin [Jardiance] .ROUTE oseltamivir [Tamiflu] 75 mg capsule 75 mg PO BID 5 Days Qty: 10 0RF levofloxacin 750 mg tablet 750 mg PO DAILY 4 Days Qty: 4 0RF Print Language: Tajik Instructions: Hematuria (ED), Urinary Tract Infection in Older Adults (ED) Referrals: KEN MOSER DO [Primary Care Provider, Family Practice] - 1 week Roosevelt Phillip MD [Physician, Urology] - 1 week
[2025-01-01 08:28] LABS: Urine Culture Indicated NO
== END 2025-01-01 08:42 | disposition home or self-care (01) ==
PROVIDERS: Emergency Provider Emergency Medicine; PCP Internal Medicine
DX: N39.0 Urinary tract infection, site not specified (principal); R31.9 Hematuria, unspecified; E11.9 Type 2 diabetes mellitus without complications; Z79.84 Long term (current) use of oral hypoglycemic drugs; Z79.01 Long term (current) use of anticoagulants
CPT/HCPCS: 36415; 80053; 81001; 85025; 85610; 85730; 99283

== ENCOUNTER 2025-02-08 07:51 | Outpatient (OUT) | payer MEDICARE, SELFPAY ==
--- OUTSIDE RECORDS SUMMARY | 2025-02-08 07:56 | XMS_ITS | CCD ---
Author Organization [facility] Providers Care Cellar Pumper Name Role Phone VINODONE, DR ROGERS Admitting [...] Provider MD Jordan Bolanos Other Provider Crissy [facility] Nikia Ferris Other Provider [phone] MD Lauren Steiner Other Provider [phone] [...] Provider MD Jordan Bolanos Other Provider Crissy [facility] Nikia Ferris Other Provider MD Lauren Steiner Other Provider MD Henrry Purvis Attending Provider Hugo Moser DO Primary Care Provider Hugo Moser MD Primary Care Provider JR Hugo Moser Primary Care Provider MD Henrry Purvis Referring Provider BHAVIN Gregorio [...] Care Unavailable Nichelle, Stephanie Admitting Unavailable Stephanie rBown Attending Unavailable Hugo Moser Primary Care Unavailable Nichelle, Stephanie Admitting Unavailable Hugo Moser DO Primary Care Provider [phone] STEPHANIE BROWN Attending Unavailable STEPHANIE BROWN Referring Unavailable HUGO MOSER Primary Care Unavailable STEPHANIE BROWN Attending Unavailable HENRRY PURVIS Referring Unavailable HUGO MOSER Primary Care Unavailable Medications Current Medications MedicationDrug Class(es)DatesSig (Normalized)Sig (Original)acarbose 100 mg oral tablet (20 sources)alpha-Glucosidase InhibitorStart: 12-28-2022 End: 37-95-6229efgk 1 tablet by mouth in the morningacarbose (Precose) 100 MG tablet Take 100 mg by mouth in the morning and 100 mg before bedtime. 06/16/2024 ActiveStart: 05-31-9817kgnd 1 tablet by mouth three times dailyacarbose (Precose) 100 mg tablet Take 1 tablet (100 mg) by mouth 3 times daily (morning, midday, late afternoon). 09/12/2022 Active End: 81-96-9826wcyfrizb (Precose) 100 MG tablet 2 (two) times a day 12/03/2023 Discontinuedapixaban 5 mg oral tablet (1 source)Factor Xa InhibitorStart: 10-24-2024 End: 62-12-1479xcgs 1 tablet by mouth twice dailyapixaban (Eliquis) 5 mg tablet Indications: Atrial fibrillation, unspecified type (Multi) Take 1 tablet (5 mg) by mouth 2 times a day. 180 tablet 1 10/24/2024 10/24/2025 Activeclindamycin 300 mg oral capsule (7 sources)Lincosamide AntibacterialStart: 60-05-8853dqkw 2 capsules by mouth three times dailyStart: 44-83-0901aihq 600 mg by mouth three times daily Clindamycin Hcl Active 600 MG PO Three times daily 12 December 31, 2022 12:00amDocusate (14 sources)Docusate Calcium (STOOL SOFTENER PO) Take by mouth Active empagliflozin 25 mg oral tablet (20 sources)Sodium-Glucose Cotransporter 2 InhibitorStart: 27-73-2400sqem 1 tablet by mouth once daily before mealtimeJardiance 25 mg Take 1 tablet (25 mg) by mouth once daily in the morning. Take before meals. 11/10/2022 Active End: 22-60-5014rknv 12.5 mg by mouth in the morningJardiance 25 MG Take 12.5 mg by mouth in the morning. 12/03/2023 Discontinuedezetimibe 10 mg oral tablet (20 sources)Dietary Cholesterol Absorption InhibitorStart: 47-26-9344xijk 0.5 tablet by mouth once dailyezetimibe (Zetia) 10 mg tablet Take 0.5 tablets (5 mg) by mouth once daily. 12/16/2022 ActiveStart: 98-04-4150eliv 1 tablet by mouth once dailytake 5 mg by mouth in the morningezetimibe (Zetia) 10 MG tablet Take 5 mg by mouth in the morning. Activefamotidine 40 mg oral tablet (2 sources)Histamine-2 Receptor AntagonistStart: 73-23-1666zkwz 1 tablet by mouth at bedtimefamotidine (Pepcid) [...] pen injector (9 sources)Insulin AnalogStart: 05-12-2024 End: 11-23-8382qrwtltp degludec (Tresiba FlexTouch) 100 UNIT/ML injection Indications: Type 2 diabetes mellitus with hyperglycemia, without long-term current use of insulin ([facility]) Inject 12 Units under the skin Daily 15 mL 3 05/12/2024 07/19/2024 DiscontinuedStart: 41-76-6639zkaecip degludec (Tresiba FlexTouch) 100 UNIT/ML injection Indications: Type 2 diabetes mellitus with hyperglycemia, without long-term current use of insulin ([facility]) Inject 12 Units under the skin Daily 15 mL 3 01/18/2024 Active3 ml insulin lispro 25 unt/ml / insulin lispro protamine, human 75 unt/ml pen injector (8 sources)Insulin AnalogStart: 11-01-2024 End: 81-04-6811mlfccit lispro protamin-lispro (HumaLOG Mix 75-25) 100 unit/mL (75-25) pen 30 units breakfast and 15 units dinner 11/01/2024 11/01/2025 Active Start: 07-19-2024 End: 66-58-5870gyaygos lispro protamine-insulin lispro (HumaLOG MIX 75/25 KWIKPEN) (75-25) 100 UNIT/ML injection Indications: Type 2 diabetes mell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, with long-term current use of insulin ([facility]) 30 units breakfast and 15 units dinner 15 mL 11 10/14/2024 10/14/2025 ActivemetFORMIN hydrochloride 500 mg oral tablet (20 sources)BiguanideStart: 94-10-1789kuyWIDSMN (Glucophage) 500 mg tablet Take 1 tablet (500 mg) by mouth. Take one tablet by mouth at noon and two tablets by mouth at supper 06/25/2023 ActiveStart: 06-25-2023 End: 71-63-9264rekq 2 tablets by mouth in the morningmetFORMIN (Glucophage) 500 MG tablet Take 2 tablets (1,000 mg) by mouth in the morning and 2 tablets (1,000 mg) in the evening. Take with meals. 360 tablet 3 12/03/2023 Xsgyuk78 hr metFORMIN hydrochloride 1000 mg / SITagliptin 100 mg extended release oral tablet (12 sources)Biguanide, Dipeptidyl Peptidase 4 InhibitorStart: 10-24-2023 End: 53-31-6198kjjh 1 tablet by mouth once daily End: 68-40-8268buqg 1 tablet by mouth every twenty-four hours in the morning Janumet XR 100-1000 MG per 24 hr tablet Take 1 tablet by mouth in the morning. 12/01/2023 DiscontinuedOzempic 1 mg/dose (4 mg/3 mL) pen injector (3 sources)Start: 05-18-2023 End: 29-30-2659gofgtt 1 mg by subcutaneous injection every weekOzempic 1 mg/dose (4 mg/3 mL) pen injector Inject 1 mg under the skin 1 (one) time per week. 05/18/2023 11/09/2024 Discontinued (Therapy completed)Start: 30-09-4792gszcra 1 mg by subcutaneous injection every weekOzempic 1 mg/dose (4 mg/3 mL) pen injector Inject 1 mg under the skin 1 (one) time per week. 05/18/2023 Activepen needle 33G x 4 mm misc (14 sources)Start: 88-13-9655vvl needle 33G x 4 mm misc Indications: Type 2 diabetes mell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, without long-term current use of insulin (HCC) Injections subcutaneous daily 100 each 3 01/18/2024 ActiveStart: 34-13-6733aqd needle 33G x 4 mm misc Indications: Type 2 diabetes mell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, without long-term current use of insulin (HCC) ([facility]/HCC) Injections subcutaneous daily 100 each 3 01/18/2024 Activerivaroxaban 20 mg oral tablet (12 sources)Factor Xa InhibitorStart: 12-08-2022 End: 21-80-7075pdcxkuevujir calcium 40 mg oral tablet (20 sources)HMG-CoA Reductase InhibitorStart: 24-88-5346kghb 1 tablet by mouth once dailyrosuvastatin (Crestor) 40 mg tablet Take 1 tablet (40 mg) by mouth once daily. 11/11/2022 Activesacubitril 24 mg / valsartan 26 mg oral tablet (15 sources)Angiotensin 2 Receptor BlockerStart: 12-28-2022 End: 07-43-7920kilg 1 tablet by mouth once daily End: 36-83-8323Ukpkdtouny-Valsartan (ENTRESTO PO) Take by mouth 12/01/2023 DiscontinuedSacubitril-Valsartan (ENTRESTO PO) Take by mouth 0 Active Completed/Discontinued Medications MedicationDrug Class(es)DatesSig (Normalized)Sig (Original)5 ml bupivacaine hydrochloride 5 mg/ml injection (2 sources)Amide Local AnestheticStart: 04-08-2023 End: 96-25-5416fmgiodjktdw PF (Marcaine) 0.5 % injection 0.5 mLdoxycycline monohydrate 100 mg oral capsule (2 sources)Tetracycline-class DrugStart: 05-12-2022 End: 19-60-1285mesc 1 capsule by mouth twice dailydoxycycline (Monodox) 100 mg capsule Take 1 capsule (100 mg) by mouth 2 times a day. 05/12/2022 07/24/2023 Discontinued (Therapy completed)3 ml insulin glargine 100 unt/ml pen injector (2 sources)Insulin AnalogStart: 01-18-2024 End: 00-06-7652iznfsnf glargine (Lantus SoloStar) 100 UNIT/ML pen Indications: Type 2 diabetes mellitus with phyam8u chronic kidney disease, without long-term current use of insulin (HCC) ([facility]) Inject 15 Unitsunder the skin Daily 15 mL 3 01/18/2024 01/18/2024 Discontinuedlosartan potassium 25 mg oral tablet (1 source)Angiotensin 2 Receptor BlockerStart: 06-12-2022 End: 15-89-4103wwpx 1 tablet by mouth once daily before mealtimelosartan (Cozaar) 25 mg tablet Take 1 tablet (25 mg) by mouth once daily in the morning. Take before meals. 0 06/12/2022 01/14/2023 Discontinued (Discontinued by another clinician)meloxicam 15 mg oral tablet (2 sources)Nonsteroidal Anti-inflammatory Drug End: 41-76-5076fpeyrxrnk (Mobic) 15 MG tablet 1 (one) time each day at the same time 12/03/2023 Discontinued1 ml methylPREDNISolone acetate 40 mg/ml injection (2 sources)CorticosteroidStart: 04-08-2023 End: 67-61-4086qciocbVJQGSMVxjbvy acetate (DEPO-Medrol) injection 40 mgOzempic, 1 MG/DOSE, 4 MG/3ML solution pen-injector (2 sources)Start: 05-18-2023 End: 48-58-8701mxaimw 1 mg by subcutaneous injection every weekOzempic, 1 MG/DOSE, 4 MG/3ML solution pen-injector Inject 1 mg under the skin 1 (one) time per week05/18/2023 12/03/2023 DiscontinuedSemaglutide-Weight Management 0.5 MG/0.5ML solution auto-injector (2 sources) End: 07-86-6994Otiryejoiub-Weight Management 0.5 MG/0.5ML solution auto-injector Inject 0.6 mg under the skin 12/03/2023 Discontinued Problems Active Problems Problem ClassificationProblemDateDocumented DateEpisodic/ChronicAcute and unspecified renal failure (9 sources)Acute renal failure syndrome; Translations: [Acute kidney failure, unspecified]95-29-2590RpzniylvCvormal on above:Problem List clean-up per request of Phys. EHR CmteCardiac dysrhythmias (4 sources)Paroxysmal atrial fibrillation; Translations: [Paroxysmal atrial fibrillation]Onset: 233064-67-5378LjoskhvVnesozt dysrhythmias (14 sources)Bradycardia; Translations: [Bradycardia, unspecified]12-31-2022 EpisodicComment on above:Problem List clean-up per request of Phys. EHR Cmte Conduction disorders (20 sources)Mobitz type II atrioventricular block; Translations: [Atrioventricular block, second degree]Onset: 105769-61-9181JqqxltrIjicrqi on above:Problem List clean-up per request of Phys. EHR CmteCongestive heart failure; nonhypertensive (4 sources)Chronic diastolic (congestive) heart failure; Translations: [CHRONIC DIASTOLIC HEART FAILURE]Onset: 31-96-7834FhhotvoVscgslvl mellitus with complications (20 sources)Type 2 diabetes mellitus with hyperglycemia; Translations: [Type 2 diabetes mellitus with diabetic chronic kidney disease]Onset: 10-09-2021 Resolved: 146712-89-1370AyfymvbFvbyzpfk mellitus without complication (20 sources)Diabetes mellitus; Translations: [Type 2 diabetes mellitus without complications]Onset: 332600-54-8634DestatlBhnwddr on above:Problem List clean-up per request of Phys. EHR CmteDisorders of lipid metabolism (20 sources)Mixed hyperlipidemia; Translations: [Mixed hyperlipidemia]Onset: 582073-63-0240ZepcmfyGirwvaklc hypertension (20 sources)Hypertensive disorder; Translations: [Essential (primary) hypertension]Onset: 337846-50-9473AnttwbzQflbrrx on above:Problem List clean-up per request of Phys. EHR CmteHeart valve disorders (4 sources)Rheumatic tricuspid insufficiency; Translations: [Diseases of tricuspid valve]Onset: 786176-74-7558KmteqsbVffcsaflnrns with complications and secondary hypertension (1 source)Hypertensive chronic kidney disease with stage 1 through stage 4 chronic kidney disease, or unspecified chronic kidney disease; Translations: [HTN CKD W/STAGE 1-4 CKD/UNS CKD]Onset: 34-64-2467JxqmsksEnwzlab (2 sources)Pain in toe; Translations: [Tinea unguium]30-81-0694Gsuegspu Osteoarthritis (20 sources)Arthritis of right acromioclavicular joint; Translations: [Primary osteoarthritis, right shoulder]Onset: 785130-50-4491QemeehaWcvwv aftercare (1 source)Other fdc (current) drug therapy; Translations: [OTH OLIVE PACKER 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 THERAPY]Onset: 20-64-9126QlhyoxnlEmbls aftercare (1 source)Taking high risk medication; Translations: [Other salvage determiner (current) drug therapy]82-59-4500TofkasdzJfmgw circulatory disease (1 source)History of cardiomyopathy; Translations: [Personal history of other diseases of the circulatory system]40-28-5375RrukbxukBljua non-traumatic joint disorders (3 sources)Rotator cuff arthropathy of right shoulder; Translations: [Other specific arthropathies, not elsewhere classified, right shoulder]04-08-2023 ChronicOther non-traumatic joint disorders (1 source)Pain in right shoulder; Translations: [Pain in joint, shoulder region] 93-25-9311TpthistbPkghs nutritional; endocrine; and metabolic disorders (6 sources)Obese class I; Translations: [Obesity, unspecified]Onset: 01-14-2023 87-23-9271VoaxbjkTowsd nutritional; endocrine; and metabolic disorders (4 sources)Body mass index 30+ - obesity; Translations: [Body mass index (BMI) 30.0-30.9, adult]Onset: 905980-79-7725PhftztbNetzw nutritional; endocrine; and metabolic disorders (1 source)Overweight; Translations: [Overweight]15-80-6043QuhmmiozXfyk-; endo-; and myocarditis; cardiomyopathy (except that caused by tuberculosis or sexually transmitted disease) (20 sources)Cardiomyopathy; Translations: [Other cardiomyopathies]Onset: 360716-59-0302ExoapmqGngymcpr codes; unclassified (4 sources)Never smoked tobacco; Translations: [Other specified health status] Onset: 409359-56-6886ZztaqzhsGwqvijay codes; unclassified (2 sources)Other specified health status; Translations: [Other specified health status]Onset: 78-79-5863FispuezuBwtsgfftaibj (1 source)CHRN KIDNEY DISEASE STG 3 UNSP; Translations: [CHRN KIDNEY DISEASE STG 3 UNSP]Onset: 05-66-9953Vssuafokgsok (1 source)Obesity, class 1; Translations: [Obesity, class 1]Onset: 01-14-2023 Past or Other Problems Problem ClassificationProblemDateDocumented DateEpisodic/ChronicOther nutritional; endocrine; and metabolic disorders (3 sources)Overweight in adulthood with body mass index of 25 or more but less than 30; Translations: [Body mass index (BMI) 28.0-28.9, adult]Onset: 03-09-2024 52-40-3032AizxbjtjSftrl nutritional; endocrine; and metabolic disorders (2 sources)Body mass index (BMI) 28.0-28.9, adult; Translations: [Body mass index (BMI) 28.0-28.9, adult]Onset: 73-20-4079OzqqlnuwXqgkbdoit; thrombophlebitis and thromboembolism (20 sources)Deep venous thrombosis; Translations: [Acute embolism and thrombosis of unspecified deep veins of unspecified lower extremity]Onset: 01-14-2023 99-71-9943UyqvucyyRppvvhvqpmgr (4 sources)Onset: 01-14-2023 Resolved: 581388-79-1075Nwazauulbfxj (1 source)Obesity, class 1; Translations: [Obesity, class 1]Onset: 11-09-2024 Results Test NameValueInterpretationReference MokqmVrccieeqLdH7h (Bld) [Mass fraction]on 93-57-5552Mxyzobcldscion and review of laboratory resultsCritical access hospital HealthcareLaboratory - Hematology and Cell countson 27-67-6086LtY7x (Bld) [Mass fraction]8.7 %[facility] HospitalHbA1c (Bld) [Mass fraction]on 07-19-2024 Interpretation and review of laboratory resultsAbAtrium Health ClevelandLaboratory - Hematology and Cell countson 34-89-2826YrR6f (Bld) [Mass fraction]9 %[facility] HospitalHbA1c (Bld) [Mass fraction]on 04-18-2024 Interpretation and review of laboratory resultsAurora Health Care Bay Area Medical CenterLaboratory - Hematology and Cell countson 27-89-8411EmA7l (Bld) [Mass fraction]8.1 %[facility] HospitalECG 12 Leadon 57-77-5608QLB reveals atrial sensing and ventricular pacing rhythm, abnormal ECGCPACSTriHealth Good [facility] Work Phone: HbA1c (Bld) [Mass fraction]on 91-99-0924Unzhvusndoixlx and review of laboratory resultsAurora Health Care Bay Area Medical CenterLaboratory - Hematology and Cell countson 93-62-7951PfR5t (Bld) [Mass fraction]10.4 %[facility] HealthcareL Inj/Asp: R subacromial bursaon 67-91-7970Lowdyob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 Pt given injection Right Shoulder SA space with 2ml of 2 % lidocaine (Code 05491 RT) Procedure, treatment alternatives, risks and benefits explained, specific risks discussed. Consent was given by the patient. [facility] Inj/Asp: R acromioclavicularon 55-83-1552QgyqljoTODD Driver 04/08/2023 1:57 PM Mickey Inj/Asp: R [...] and draped in the usual sterile fashion. [facility] CenterBasophils Auto (Bld) [#/Vol]Ordered By: Jarred Cline on 69-90-6912Nuwmrtmev (Bld) [#/Vol]0.0 10*3/uL0.0-0.2FAultman Orrville HospitalBasophils/100 WBC Auto (Bld)Ordered By: Jarred Cline on 12-31-2022 Basophils/100 WBC (Bld)0.6 %.[facility] HospitalCalcium [Mass/volume] in Serum or PlasmaOrdered By: Jarred Cline on 75-22-2641Nyrlkgy [Mass/Vol]8.9 mg/dL8.6-10.3FAultman Orrville HospitalCarbon dioxide, total [Moles/volume] in Serum or PlasmaOrdered By: Jarred Cline on 37-83-1870NN1 [Moles/Vol]22.9 mmol/L21.0-31.0[facility] HospitalChloride [Moles/volume] in Serum or PlasmaOrdered By: Jarred Cline on 16-31-3531Yruglnbw [Moles/Vol]106 mmol/V05-927NcaggyonzParkview Health Bryan HospitalCreatinine [Mass/volume] in Serum or PlasmaOrdered By: Jarred Cline on 40-91-4587Llldbshmux [Mass/Vol]1.20 mg/dL0.70-1.30[facility] HospitalEosinophils Auto (Bld) [#/Vol]Ordered By: Jarred Cline on 89-00-0032Mduzjiesnqf (Bld) [#/Vol]0.1 10*3/uL0.0-0.45[facility] HospitalEosinophils/100 WBC Auto (Bld) Ordered By: Jarred Cline on 89-33-9864Ndbqkakjyvb/100 WBC (Bld)1.6 %.[facility] HospitalErythrocyte distribution width Auto (RBC) [Ratio]Ordered By: Jarred Cline on 27-93-1401Sypyurpmury distribution width (RBC) [Ratio]14.9 % 12.0-14.8[facility] HospitalGlucose [Mass/volume] in Serum or PlasmaOrdered By: Jarred Cline on 57-48-1969Iorcjqd [Mass/Vol]175 mg/qZ87-343 [facility] HospitalComment on above:ADA recommended reference rangeRandom Glucose Reference Range is dependent on time and content of last meal. Glucose of more than 200 mg/dL in a nonstressed, ambulatory subject supports the diagnosisof Diabetes Mellitus.Hematocrit Auto (Bld) [Volume fraction]Ordered By: Jarred Cline on 56-50-2331Ljpmddmdou (Bld) [Volume fraction]39.1 %38.8-50.0[facility] HospitalHemoglobin [Mass/volume] in BloodOrdered By: Jarred Cline on 47-62-9635Xiqagpxvhb (Bld) [Mass/Vol]13.0 g/dL13.0-17.0[facility] HospitalLeukocytes [#/volume] corrected for nucleated erythrocytes in Blood by Automated coun Ordered By: Jarred Cline on 22-81-7708REE corrected for nucl RBC Auto (Bld) [#/Vol]6.7 10*3/uL4.1-10.5FAultman Orrville HospitalLymphocytes Auto (Bld) [#/Vol]Ordered By: Jarred Cline on 97-26-6880Gfeaxmergag (Bld) [#/Vol]1.9 10*3/uL1.00-4.8[facility] HospitalLymphocytes/100 WBC Auto (Bld) Ordered By: Jarred Cline on 75-39-2561Jwhhgkmgnnt/100 WBC (Bld)27.7 %.[facility]H Auto (RBC) [Entitic mass]Ordered By: Jarred Cline on 35-47-9953AIT (RBC) [Entitic mass]30.5 pg27.5-35.2FAultman Orrville HospitalMCHC Auto (RBC) [Mass/Vol]Ordered By: Jarred Cline on 08-30-0733NAHO (RBC) [Mass/Vol]33.3 g/dL32.5-35.6FAultman Orrville HospitalMCV Auto (RBC) [Entitic vol]Ordered By: Jarred Cline on 16-34-0836JXL (RBC) [Entitic vol]91.5 fL83.5-101[facility] HospitalMagnesium [Mass/volume] in Serum or PlasmaOrdered By: Jarred Cline on 09-44-2032Imtydcnki [Mass/Vol]2.1 mg/dL1.9-2.7 [facility] HospitalMonocytes Auto (Bld) [#/Vol]Ordered By: Jarred Cline on 24-05-5143Nofaqjpzn (Bld) [#/Vol]0.6 10*3/uL0.0-0.8[facility] HospitalMonocytes/100 WBC Auto (Bld)Ordered By: Jarred Cline on 12-31-2022 Monocytes/100 WBC (Bld)8.9 %.[facility] HospitalNeutrophils Auto (Bld) [#/Vol]Ordered By: Jarred Cline on 34-08-7112Njnbjjwzkhl (Bld) [#/Vol]4.1 10*3/uL1.8-7.7FAultman Orrville HospitalNeutrophils/100 WBC Auto (Bld) Ordered By: Jarred Cline on 68-84-9807Esqgmcefsvm/100 WBC (Bld)61.2 %.[facility] HospitalNo Panel InformationOrdered By: Jarred Cline on 54-02-8340Jlrsbogqb GFR (CKD-EPI)> 60.0 mL/MinParkview Health Bryan Hospital Pharmacy Creatinine Clearance (Chem48.99[facility] Nucleated erythrocytes [Presence] in Blood by Automated countOrdered By: Jarred Cline on 28-00-7728Hastezaik RBC Auto Ql (Bld)0.0 /100{WBC}0-0.5FAultman Orrville HospitalPlatelet mean volume Auto (Bld) [Entitic vol]Ordered By: Jarred Cline on 82-35-4246Uivezkpt mean volume (Bld) [Entitic vol]7.2 fL6.6-10.1 [facility] HospitalPlatelets Auto (Bld) [#/Vol]Ordered By: Jarred Cline on 73-55-4373Lkoukygwn (Bld) [#/Vol]148 10*3/qV268-706YjoooiceqParkview Health Bryan HospitalPotassium [Moles/volume] in Serum or PlasmaOrdered By: Jarred Cline on 23-20-5822Qmtqiwbff [Moles/Vol]4.1 mmol/L3.5-5.1FAultman Orrville HospitalRBC Auto (Bld) [#/Vol]Ordered By: Jarred Cline on 19-22-1236TDE (Bld) [#/Vol]4.27 10*6/uL3.90-5.60[facility] - Andersonerum or plasma anion gap determinationOrdered By: Jarred Cline on 20-39-5419Tzuhc gap [Moles/Vol]12.2 mmol/L6.0-15.0[facility] - Andersonodium [Moles/volume] in Serum or PlasmaOrdered By: Jarred Cline on 25-92-4536Hhjcgt [Moles/Vol]137 mmol/M259-610QphmoigmcParkview Health Bryan HospitalUrea nitrogen [Mass/volume] in Serum or PlasmaOrdered By: Jarred Cline on 90-23-9528Nckx nitrogen [Mass/Vol]23 mg/dL7-25[facility] HospitalWBC Auto (Bld) [#/Vol]Ordered By: Jarred Cline on 54-81-6800DKB (Bld) [#/Vol]6.7 10*3/uL 4.1-10.5FAultman Orrville HospitalActivated partial thromboplastin time (aPTT) in platelet poor plasma by coagulation aOrdered By: Henrry Purvis on 93-60-9629mIPZ Coag (PPP) [Time]30.2 s25.1-36.5FAultman Orrville Hospital Comment on above:A hematocrit value greater than 55% may lead to inaccurate results in coagulation testing. Patientshaving hematocrit values >55% require a special collection tube for coagulation studies. Please contact the laboratory at [phone] for redraw instructions.Glucose Glucometer (BldC) [Mass/Vol] Ordered By: Katie Osborne on 09-92-9089Smfmwlz [Mass/Vol]183 mg/dLParkview Health Bryan HospitalComment on above:Random Glucose Reference Range is dependent on time and content of last meal. Glucose of more than 200 mg/dL in a nonstressed, ambulatory subject supports the diagnosis of Diabetes Mellitus.INR in Platelet poor plasma by Coagulation assayOrdered By: Henrry Purvis on 31-82-0649KOW Coag (PPP) [Relative time]1.1 {INR}[facility] HospitalComment on above:INR Therapeutic Range A) Pre- and [...] 4.5Prothrombin time (PT)Ordered By: Henrry Purvis on 48-35-2804PC Coag (PPP) [Time]13.1 s9.0-12.9[facility] Comment on above:A hematocrit value greater than 55% may lead to inaccurate results in coagulation testing. Patientshaving hematocrit values >55% require a special collection tube for coagulation studies. Please contact the laboratory at [phone] for redraw instructions.Cholesterol [Mass/volume] in Serum or PlasmaOrdered By: Jarred Cline on 98-87-3188Mkngrwkpnvp [Mass/Vol]96 mg/dL 140-200Park[facility] HospitalComment on above:Chol less than 200 mg/dl low riskChol 201-239 mg/dl borderline riskChol 240 mg/dl and greater high riskCholesterol in LDL Calc [Mass/Vol]Ordered By: Jarred Cline on 12-29-2022 Cholesterol in LDL [Mass/Vol]40 mg/dL0-100[facility] Comment on above:LDL ATP III CLASSIFICATIONLDL less than 100 mg/dL OptimalLDL 100-129 mg/dL Near or above vbflfrcACL090-899 mg/dL Borderline highLDL 160-189 mg/dL HighLDL greater than 189 mg/dL Very highCholesterol in VLDL Calc [Mass/Vol]Ordered By: Jarred Cline on 87-84-5368Bapxommzddk in VLDL [Mass/Vol]26 mg/dLOur Lady of Mercy Hospital - Andersonerum or plasma high density lipoprotein (HDL) cholesterol measurementOrdered By: Jarred Cline on 57-00-1552Fcvrviekjmu in HDL [Mass/Vol]30 mg/sZ62-68ZyrwzqnhqParkview Health Bryan HospitalComment on above: HDL CHOL ATP-III CLASSIFICATION Cardiovascular RiskHDL > or equal to 60 mg/dL LOWHDL < 40 mg/dL HIGHSerum or plasma total cholesterol/high density lipoprotein (HDL) cholesterol mass ratOrdered By: Jarred Cline on 12-29-2022 Cholesterol.total/Cholesterol in HDL [Mass ratio]3.2 {ratio}<5.0[facility] HospitalTriglyceride [Mass/volume] in Serum or PlasmaOrdered By: Jarred Cline on 31-28-3357Rcouwonjcdcn [Mass/Vol]132 mg/dL0-149Park[facility] Bryan HospitalComment on above:TRIG ATP III CLASSIFICATIONTRIG less than 150 mg/dL NormalTRIG 150-199 mg/dL Borderline highTRIG 200-500 mg/dL High TRIG greater than 500 mg/dL Very highStandard traceable to the Center for Disease Conrtrol and Prevention (CDC) test method.Glucose mean value [Mass/volume] in Blood Estimated from glycated hemoglobinOrdered By: Jarred Cline on 89-48-7675Wieqqvk glucose Estimated from glycated hemoglobin (Bld) [Mass/Vol]212 mg/dLParkview Health Bryan HospitalHemoglobin A1c percentage Ordered By: Jarred Cline on 99-75-1504ClT9j (Bld) [Mass fraction]9.0 %4.3-5.6 [facility] HospitalComment on above:Increased risk for diabetes: 5.7 - 6.4diabetes: >6.4glycemic control for adults with diabetes: <7.0BNPon 22-69-0744Bkeagatsttg peptide B (Bld) [Mass/Vol]74.0 pg/mLNormal<=1,800.0The [facility] CenterComment on above:Performed By: #### ELEC, BUN, BNP, LIVER, CREA #### [facility] [address] [place] [address] Dr. Brissa Hayden 13-47-2089Nxpk nitrogen [Mass/Vol]41.0 mg/dLCritically high 7.0-18.0The [facility] Medical CenterComment on above:Performed By: #### ELEC, BUN, BNP, LIVER, CREA #### [facility] [address] [place] [address] Dr. Brissa Hay AUTO DIFFon [id number] #0.1 103/ulNormal0.0-0.1[facility] HospitalComment on above:Performed By: #### ELEC, BUN, BNP, LIVER, CREA #### [facility] [address] [place] [address] Dr. Brissa Pompasophils/100 WBC (Bld)0.8 %Normal0.2-2.0[facility] Comment on above:Performed By: #### ELEC, BUN, BNP, LIVER, CREA #### [facility] [address] [place] [address] Dr. Brissa Tracy #0.1 103/ulNormal0.0-0.7The [facility] CenterComment on above: Performed By: #### ELEC, BUN, BNP, LIVER, CREA #### [facility] [address] [place] [address] Dr. Brissa Hoytosinophils/100 WBC (Bld)1.1 %Normal0.9-7.0The [facility] Comment on above:Performed By: #### ELEC, BUN, BNP, LIVER, CREA #### [facility] [address] [place] [address] Dr. Brissa Hoytrythrocyte distribution width (RBC) [Ratio]14.1 %Eqhojy97.0-15.[address] [facility] Medical CenterComment on above:Performed By: #### ELEC, BUN, BNP, LIVER, CREA #### [facility] [address] [place] [address] Dr. Brissa MaHematocrit (Bld) [Volume fraction]47.8 %Lrjtvh97.0-54.0The [facility] CenterComment on above:Performed By: #### ELEC, BUN, BNP, LIVER, CREA #### [facility] [address] [place] [address] Dr. Brissa MaHemoglobin (Bld) [Mass/Vol]15.3 g/kEVwyjdc84.0-18.0The [facility] CenterComment on above:Performed By: #### ELEC, BUN, BNP, LIVER, CREA #### [facility] [address] [place] [address] Dr. Brissa Lay #0.17 10e3/ulCritically high0.00-0.03The [facility] Comment on above:Performed By: #### ELEC, BUN, BNP, LIVER, CREA #### [facility] [address] [place] [address] Dr. Brissa Lay %1.7 %Critically high0.0-0.5The [facility] CenterComment on above:Performed By: #### ELEC, BUN, BNP, LIVER, CREA #### [facility] [address] [place] [address] Dr. Brissa Ogden #3.8 103/ulNormal1.2-3.8The [facility] CenterComment on above:Performed By: #### ELEC, BUN, BNP, LIVER, CREA #### [facility] [address] [place] [address] Dr. Brissa Hessmphocytes/100 WBC (Bld)38.4 %Trfcws18.5-60.0The [facility] CenterComment on above:Performed By: #### ELEC, BUN, BNP, LIVER, CREA #### [facility] [address] [place] [address] Dr. Brissa Hawkins DIFF REQNONormalThe [facility] St[facility] John Medical CenterComment on above: Performed By: #### ELEC, BUN, BNP, LIVER, CREA #### [facility] [address] [place] [address] Dr. Brissa Elizabeth (RBC) [Entitic mass]30.2 wgTtazom00.9-34.0The [facility] CenterComment on above:Performed By: #### ELEC, BUN, BNP, LIVER, CREA #### [facility] [address] [place] [address] Dr. Brissa Elizabeth (RBC) [Mass/Vol]32.0 g/eFGqnoob19.9-35.2The [facility] CenterComment on above:Performed By: #### ELEC, BUN, BNP, LIVER, CREA #### [facility] [address] [place] [address] Dr. Brissa Elizabeth (RBC) [Entitic vol]94.3 fLCritically high80.0-94.0The [facility] CenterComment on above:Performed By: #### ELEC, BUN, BNP, LIVER, CREA #### [facility] [address] [place] [address] Dr. Brissa Kaye #0.7 103/ulNormal0.3-0.8The [facility] CenterComment on above:Performed By: #### ELEC, BUN, BNP, LIVER, CREA #### [facility] [address] [place] [address] Dr. Brissa Reyocytes/100 WBC (Bld)7.4 %Normal1.7-12.0The [facility] Comment on above:Performed By: #### ELEC, BUN, BNP, LIVER, CREA #### [facility] [address] [place] [address] Dr. Brissa Barahona #5.0 103/ulNormal1.4-6.5The Raul HospitalComment on above:Performed By: #### ELEC, BUN, BNP, LIVER, CREA #### [facility] [address] [place] [address] Dr. Brissa Sanchezutrophils/100 WBC (Bld)50.6 %Xkjlzp38.0-75.0The [facility] on above:Performed By: #### ELEC, BUN, BNP, LIVER, CREA #### [facility] [address] [place] [address] Dr. Brissa MaPlatelet mean volume (Bld) [Entitic vol]9.0 fLCritically low 9.5-13.5The [facility] Hospitalment on above:Performed By: #### ELEC, BUN, BNP, LIVER, CREA #### [facility] [address] [place] [address] Dr. Brissa MaPLT205 103/xnFinell253-965Fkb [facility] on above: Performed By: #### ELEC, BUN, BNP, LIVER, CREA #### [facility] [address] [place] [address] Dr. Brissa MaRBC5.07 106/ulNormal4.70-6.10The [facility] on above:Performed By: #### ELEC, BUN, BNP, LIVER, CREA #### [facility] [address] [place] [address] Dr. Brissa MaWBC9.9 103/ulNormal4.0-11.0The [facility] on above: Performed By: #### ELEC, BUN, BNP, LIVER, CREA #### [facility] [address] [place] [address] Dr. Brissa MaCREATININEon 43-64-9659Ashnpnqidc [Mass/Vol]1.60 mg/dLCritically high0.70-1.30The [facility] on above:Performed By: #### ELEC, BUN, BNP, LIVER, CREA #### [facility] [address] [place] [address] Dr. Brumfield ChangEGFR-AF HYJKQNZY64 mL/min/1.95a8Gcalxnczqd low>=60[facility] HospitalComment on above:Performed By: #### ELEC, BUN, BNP, LIVER, CREA #### [facility] [address] [place] [address] Dr. Brissa HoytGFR-NON AF YTNQTRPW21 mL/min/1.96c5Axwhrllcmb low>=60The [facility] CenterComment on above:Performed By: #### ELEC, BUN, BNP, LIVER, CREA #### [facility] [address] [address] [address] Brissa HoytLECTROLYTESon 64-45-8228Lguuv gap [Moles/Vol]15.5 mmol/LNormal The [facility] CenterComment on above:Performed By: #### ELEC, BUN, BNP, LIVER, CREA #### [facility] [address] [place] [address] Dr. Brissa MaChloride [Moles/Vol]102 mmol/TBixbpy05-260IawMercy Memorial Hospital Comment on above:Performed By: #### ELEC, BUN, BNP, LIVER, CREA #### [facility] [address] [place] [address] Dr. Brissa MaCO2 [Moles/Vol]25.5 mmol/BPoecju53.0-32.0[facility] Comment on above:Performed By: #### ELEC, BUN, BNP, LIVER, CREA #### [facility] [address] [place] [address] Dr. Brissa MaPotassium [Moles/Vol]5.0 mmol/LNormal3.5-5.1[facility] Comment on above:Performed By: #### ELEC, BUN, BNP, LIVER, CREA #### [facility] [address] [address] [address] Brissa MaSodium [Moles/Vol]138 mmol/OZknrpv437-942ZjoMercy Memorial Hospital Comment on above:Performed By: #### ELEC, BUN, BNP, LIVER, CREA #### [facility] [address] [place] [address] Dr. Brissa MaGLYCOHEMOGLOBIN A1Con 65-86-2892POW RECOMMENDATIONSEE BELOWNormal [facility] on above:Result Comment: ADA RECOMMENDED LIMIT 4.0 - 6.0 ADA THERAPEUTIC TARGET < 7.0 ACTION SUGGESTED > 7.0Performed By: #### A1C #### [facility] [address] [place] [address] Dr. Brissa MaGlucose [Mass/Vol]203 mg/dLNormalThe [facility] CenterComholland hospital on above:Performed By: #### A1C #### [facility] [address] [place] [address] Dr. Brissa MaHbA1c (Bld) [Mass fraction]8.7 %Critically high4.5-6.2The [facility] on above:Performed By: #### A1C #### [facility] [address] [place] [address] Dr. Brissa Michelle PROFILEon 33-59-6279Btnlitm [Mass/Vol]3.7 g/dLNormal3.4-5.0 [facility] on above:Performed By: #### ELEC, BUN, BNP, LIVER, CREA #### [facility] [address] [place] [address] Dr. Brissa MaAlbumin/Globulin [Mass ratio]1.0 {ratio}NormalThe [facility] on above:Performed By: #### ELEC, BUN, BNP, LIVER, CREA #### [facility] [address] [place] [address] Dr. Brissa Baxter [Catalytic activity/Vol]80 U/GYkggge54-736Ory [facility] on above:Performed By: #### ELEC, BUN, BNP, LIVER, CREA #### [facility] [address] [place] [address] Dr. Brissa Hand [Catalytic activity/Vol]16 U/SOawyhb76-19Ube [facility] on above:Performed By: #### ELEC, BUN, BNP, LIVER, CREA #### [facility] [address] [place] [address] Dr. Brissa Gautam [Catalytic activity/Vol]18 U/SPedsuy95-14Swd [facility] CenterComment on above:Performed By: #### ELEC, BUN, BNP, LIVER, CREA #### [facility] [address] [place] [address] Dr. Brissa SanchezI, CONJUGATED0.1 mg/dLNormal0.0-0.2The [facility] Comment on above:Performed By: #### ELEC, BUN, BNP, LIVER, CREA #### [facility] [address] [place] [address] Dr. Brissa Sanchezirubin [Mass/Vol]0.7 mg/dLNormal0.2-1.0[facility] Comment on above:Performed By: #### ELEC, BUN, BNP, LIVER, CREA #### [facility] [address] [place] [address] Dr. Brissa MaGlobulin (S) [Mass/Vol]3.8 g/dLNormalThe [facility] CenterComment on above:Performed By: #### ELEC, BUN, BNP, LIVER, CREA #### [facility] [address] [place] [address] Dr. Brissa MaProtein [Mass/Vol]7.5 g/dLNormal6.4-8.2[facility] Comment on above:Performed By: #### ELEC, BUN, BNP, LIVER, CREA #### [facility] [address] [place] [address] Dr. Brissa Batres 73-30-5837Quyjnsrivrx peptide B (Bld) [Mass/Vol]150.0 pg/mL Normal<=1,800.0The [facility] CenterComment on above:Performed By: #### ELEC, BUN, BNP, LIVER, CREA #### [facility] [address] [place] [address] Dr. Brissa Hayden 60-70-5658Yanm nitrogen [Mass/Vol]22.0 mg/dLCritically high 7.0-18.0The [facility] CenterComment on above:Performed By: #### ELEC, BUN, BNP, LIVER, CREA #### [facility] [address] [place] [address] Dr. Brissa Hay AUTO DIFFon 52-64-1956NXVU #0.0 103/ulNormal0.0-0.1The [facility] CenterComment on above:Performed By: #### ELEC, BUN, BNP, LIVER, CREA #### [facility] [address] [place] [address] Dr. Brissa aMBasophils/100 WBC (Bld)0.5 %Normal0.2-2.0The [facility] Comment on above:Performed By: #### ELEC, BUN, BNP, LIVER, CREA #### [facility] [address] [place] [address] Dr. Brissa HoytO #0.1 103/ulNormal0.0-0.7The [facility] CenterComment on above: Performed By: #### ELEC, BUN, BNP, LIVER, CREA #### [facility] [address] [place] [address] Dr. Brissa Hoytosinophils/100 WBC (Bld)1.9 %Normal0.9-7.0The [facility] Comment on above:Performed By: #### ELEC, BUN, BNP, LIVER, CREA #### [facility] [address] [place] [address] Dr. Brissa Hoytrythrocyte distribution width (RBC) [Ratio]14.1 %Fsqaig91.0-15.[address] [facility] CenterComment on above:Performed By: #### ELEC, BUN, BNP, LIVER, CREA #### [facility] [address] [place] [address] Dr. Brissa MaHematocrit (Bld) [Volume fraction]43.1 %Zpjayu42.0-54.0The [facility] CenterComment on above:Performed By: #### ELEC, BUN, BNP, LIVER, CREA #### [facility] [address] [place] [address] Dr. Brissa MaHemoglobin (Bld) [Mass/Vol]13.7 g/dLCritically low14.0-18.0The [facility] CenterComment on above:Performed By: #### ELEC, BUN, BNP, LIVER, CREA #### [facility] [address] [address] [address] Brissa Lay #0.05 10e3/ulCritically high0.00-0.03The [facility] Comment on above:Performed By: #### ELEC, BUN, BNP, LIVER, CREA #### [facility] [address] [place] [address] Dr. Brissa Lay %0.8 %Critically high0.0-0.5The [facility] CenterComment on above:Performed By: #### ELEC, BUN, BNP, LIVER, CREA #### [facility] [address] [place] [address] Dr. Brissa Ogden #2.7 103/ulNormal1.2-3.8The [facility] CenterComment on above:Performed By: #### ELEC, BUN, BNP, LIVER, CREA #### [facility] [address] [place] [address] Dr. Brissa Fischerhocytes/100 WBC (Bld)42.1 %Agxzrr32.5-60.0The [facility] Hospitalment on above:Performed By: #### ELEC, BUN, BNP, LIVER, CREA #### [facility] [address] [place] [address] Dr. Brissa HydeUAL DIFF REQNONormalThe [facility] CenterComment on above: Performed By: #### ELEC, BUN, BNP, LIVER, CREA #### [facility] [address] [place] [address] Dr. Brissa Elizabeth (RBC) [Entitic mass]29.8 itYlphpv62.9-34.0The [facility] CenterComment on above:Performed By: #### ELEC, BUN, BNP, LIVER, CREA #### [facility] [address] [place] [address] Dr. Brissa Elizabeth (RBC) [Mass/Vol]31.8 g/vNWgwptz64.9-35.2The [facility] CenterComment on above:Performed By: #### ELEC, BUN, BNP, LIVER, CREA #### [facility] [address] [place] [address] Dr. Brissa Howard (RBC) [Entitic vol]93.9 gBWrvclp56.0-94.0The [facility] CenterComment on above:Performed By: #### ELEC, BUN, BNP, LIVER, CREA #### [facility] [address] [place] [address] Dr. Brissa Kaye #0.5 103/ulNormal0.3-0.8The [facility] CenterComment on above:Performed By: #### ELEC, BUN, BNP, LIVER, CREA #### [facility] [address] [place] [address] Dr. Brissa Reyocytes/100 WBC (Bld)7.8 %Normal1.7-12.0The [facility] Comment on above:Performed By: #### ELEC, BUN, BNP, LIVER, CREA #### [facility] [address] [place] [address] Dr. Brissa Barahona #3.0 103/ulNormal1.4-6.5The [facility] CenterComment on above:Performed By: #### ELEC, BUN, BNP, LIVER, CREA #### [facility] [address] [place] [address] Dr. Brissa Sanchezutrophils/100 WBC (Bld)46.9 %Uzkqnv98.0-75.0The [facility] CenterComment on above:Performed By: #### ELEC, BUN, BNP, LIVER, CREA #### [facility] [address] [place] [address] Dr. Brissa Frye mean volume (Bld) [Entitic vol]9.2 fLCritically low 9.5-13.5The [facility] Hospitalment on above:Performed By: #### ELEC, BUN, BNP, LIVER, CREA #### [facility] [address] [place] [address] Dr. Brissa MaPLT163 103/nkEhkdqr325-217NocDayton VA Medical Center on above: Performed By: #### ELEC, BUN, BNP, LIVER, CREA #### [facility] [address] [place] [address] Dr. Brissa MaRBC4.59 106/ulCritically low4.70-6.10[facility] on above:Performed By: #### ELEC, BUN, BNP, LIVER, CREA #### [facility] [address] [place] [address] Dr. Brissa MaWBC6.4 103/ulNormal4.0-11.0The [facility] on above: Performed By: #### ELEC, BUN, BNP, LIVER, CREA #### [facility] [address] [place] [address] Dr. Brissa MaCREATININEon 88-96-6480Kmresedjzj [Mass/Vol]1.47 mg/dLCritically high0.70-1.30[facility] on above:Performed By: #### ELEC, BUN, BNP, LIVER, CREA #### [facility] [address] [place] [address] Dr. Brumfield ChangEGFR-AF HENKNVJE61 mL/min/1.32l0Hkhdapmpik low>=60[facility] on above:Performed By: #### ELEC, BUN, BNP, LIVER, CREA #### [facility] [address] [place] [address] Dr. Brissa HoytGFR-NON AF SRZEQHNG82 mL/min/1.64v0Qbwfwtgcap low>=60[facility] on above:Performed By: #### ELEC, BUN, BNP, LIVER, CREA #### [facility] [address] [place] [address] Dr. Brissa HoytLECTROLYTESon 89-03-0007Peguj gap [Moles/Vol]10.1 mmol/LNormal [facility] on above:Performed By: #### ELEC, BUN, BNP, LIVER, CREA #### [facility] [address] [place] [address] Dr. Brissa MaChloride [Moles/Vol]106 mmol/HSiixnw24-203Kae [facility] Comment on above:Performed By: #### ELEC, BUN, BNP, LIVER, CREA #### [facility] [address] [address] [address] Brissa MaCO2 [Moles/Vol]28.4 mmol/UUtxoqc93.0-32.0The [facility] Comment on above:Performed By: #### ELEC, BUN, BNP, LIVER, CREA #### [facility] [address] [address] [address] Brissa MaPotassium [Moles/Vol]4.5 mmol/LNormal3.5-5.1The [facility] Comment on above:Performed By: #### ELEC, BUN, BNP, LIVER, CREA #### [facility] [address] [address] [address] Brissa MaSodium [Moles/Vol]140 mmol/QXcjuew779-933Ubz [facility] Comment on above:Performed By: #### ELEC, BUN, BNP, LIVER, CREA #### [facility] [address] [address] [address] Brissa MaGLYCOHEMOGLOBIN A1Con 56-25-1123LHI RECOMMENDATIONSEE BELOWNoUniversity Hospitals Cleveland Medical CenterComment on above:Result Comment: ADA RECOMMENDED LIMIT 4.0 - 6.0 ADA THERAPEUTIC TARGET < 7.0 ACTION SUGGESTED > 7.0Performed By: #### A1C #### [facility] [address] [place] [address] Dr. Brissa MaGlucose [Mass/Vol]223 mg/dLNormalThSelect Medical Cleveland Clinic [facility] Hospital, Edwin ShawComment on above:Performed By: #### A1C #### [facility] [address] [address] [address] Brissa MaHbA1c (Bld) [Mass fraction]9.4 %Critically high4.5-6.2[facility] HospitalComment on above:Performed By: #### A1C #### [facility] [address] [address] [address] Brissa MaLIMARILIA PROFILEon 88-23-3102Lumczcf [Mass/Vol]3.6 g/dLNormal3.4-5.0 The [facility] Hospitalment on above:Performed By: #### ELEC, BUN, BNP, LIVER, CREA #### [facility] [address] [place] [address] Dr. Brissa MaAlbumin/Globulin [Mass ratio]1.0 {ratio}NormalThe [facility] on above:Performed By: #### ELEC, BUN, BNP, LIVER, CREA #### [facility] [address] [place] [address] Dr. Brissa Baxter [Catalytic activity/Vol]86 U/NLnglwi10-458Sqn [facility] Hospitalment on above:Performed By: #### ELEC, BUN, BNP, LIVER, CREA #### [facility] [address] [place] [address] Dr. Brissa Hand [Catalytic activity/Vol]18 U/SZxamja91-16Veq [facility] Hospitalment on above:Performed By: #### ELEC, BUN, BNP, LIVER, CREA #### [facility] [address] [place] [address] Dr. Brissa Gautam [Catalytic activity/Vol]20 U/RUgotyn63-09Gei [facility] on above:Performed By: #### ELEC, BUN, BNP, LIVER, CREA #### [facility] [address] [place] [address] Dr. Brissa Ramirez, CONJUGATED0.1 mg/dLNormal0.0-0.2The [facility] Comment on above:Performed By: #### ELEC, BUN, BNP, LIVER, CREA #### [facility] [address] [place] [address] Dr. Brissa Castro [Mass/Vol]0.4 mg/dLNormal0.2-1.0[facility] Comment on above:Performed By: #### ELEC, BUN, BNP, LIVER, CREA #### [facility] [address] [place] [address] Dr. Brissa MaGlobulin (S) [Mass/Vol]3.7 g/dLNormalThe [facility] CenterComment on above:Performed By: #### ELEC, BUN, BNP, LIVER, CREA #### [facility] [address] [place] [address] Dr. Brissa MaProtein [Mass/Vol]7.3 g/dLNormal6.4-8.2The [facility] Comment on above:Performed By: #### ELEC, BUN, BNP, LIVER, CREA #### [facility] [address] [place] [address] Dr. Brissa Hayden [id number] nitrogen [Mass/Vol]25.0 mg/dLCritically high 7.0-18.0The [facility] CenterComment on above:Performed By: #### ELEC, BUN, BNP, LIVER, CREA #### [facility] [address] [place] [address] Dr. Brissa Hay AUTO DIFFon [id number] #0.1 103/ulNormal0.0-0.1The [facility] CenterComment on above:Performed By: #### CBC #### [facility] [address] [place] [address] Dr. Brissa MaBasophils/100 WBC (Bld)0.7 %Normal0.2-2.0[facility] Comment on above:Performed By: #### CBC #### [facility] [address] [place] [address] Dr. Brissa Tracy #0.1 103/ulNormal0.0-0.7The [facility] CenterComment on above: Performed By: #### CBC #### [facility] [address] [place] [address] Dr. Brissa Hoytosinophils/100 WBC (Bld)1.8 %Normal0.9-7.0The [facility] Comment on above:Performed By: #### CBC #### [facility] [address] [place] [address] Dr. Brissa Hoytrythrocyte distribution width (RBC) [Ratio]14.1 %Jkzqjl38.0-15.[address] [facility] CenterComment on above:Performed By: #### CBC #### [facility] [address] [address] [address] Brissa MaHematocrit (Bld) [Volume fraction]41.9 %Critically low42.0-54.[address] [facility] CenterComment on above:Performed By: #### CBC #### [facility] [address] [place] [address] Dr. Brissa MaHemoglobin (Bld) [Mass/Vol]13.3 g/dLCritically low14.0-18.0The [facility] CenterComment on above:Performed By: #### CBC #### [facility] [address] [place] [address] Dr. Brissa Lay #0.06 10e3/ulCritically high0.00-0.03The [facility] Comment on above:Performed By: #### CBC #### [facility] [address] [place] [address] Dr. Brissa Lay %0.9 %Critically high0.0-0.5The [facility] CenterComment on above:Performed By: #### CBC #### [facility] [address] [place] [address] Dr. Brissa Ogden #2.6 103/ulNormal1.2-3.8The [facility] CenterComment on above:Performed By: #### CBC #### [facility] [address] [place] [address] Dr. Brissa Fischerhocytes/100 WBC (Bld)37.8 %Rwdnqy01.5-60.0The [facility] CenterComment on above:Performed By: #### CBC #### [facility] [address] [place] [address] Dr. Brissa HydeUAL DIFF REQNONormalThe [facility] CenterComment on above: Performed By: #### CBC #### [facility] [address] [place] [address] Dr. Brissa Fernandez (RBC) [Entitic mass]30.4 nkQqggbz22.9-34.0The [facility] CenterComment on above:Performed By: #### CBC #### [facility] [address] [place] [address] Dr. Brissa Elizabeth (RBC) [Mass/Vol]31.7 g/pOWbdtxi08.9-35.2The [facility] CenterComment on above:Performed By: #### CBC #### [facility] [address] [place] [address] Dr. Brissa Elizabeth (RBC) [Entitic vol]95.7 fLCritically high80.0-94.0The [facility] CenterComment on above:Performed By: #### CBC #### [facility] [address] [place] [address] Dr. Brissa Kaye #0.6 103/ulNormal0.3-0.8The [facility] CenterComment on above:Performed By: #### CBC #### [facility] [address] [place] [address] Dr. Brissa Reyocytes/100 WBC (Bld)8.4 %Normal1.7-12.0The [facility] Comment on above:Performed By: #### CBC #### [facility] [address] [place] [address] Dr. Brissa Barahona #3.4 103/ulNormal1.4-6.5The [facility] CenterComment on above:Performed By: #### CBC #### [facility] [address] [place] [address] Dr. Brissa Limonophils/100 WBC (Bld)50.4 %Ftssme22.0-75.0The [facility] CenterComment on above:Performed By: #### CBC #### [facility] [address] [place] [address] Dr. Brissa Frye mean volume (Bld) [Entitic vol]9.2 fLCritically low 9.5-13.5The [facility] CenterComment on above:Performed By: #### CBC #### [facility] [address] [place] [address] Dr. Brissa WalkerT151 103/lnRzuurd292-429Iol [facility] Hospitalment on above: Performed By: #### CBC #### [facility] [address] [place] [address] Dr. Brissa MaRBC4.38 106/ulCritically low4.70-6.10The [facility] Hospitalment on above:Performed By: #### CBC #### [facility] [address] [place] [address] Dr. Brissa MaWBC6.8 103/ulNormal4.0-11.0The [facility] CenterComholland hospital on above: Performed By: #### CBC #### [facility] [address] [place] [address] Dr. Brissa MaCREATININEon 11-28-9669Ybruoupcdu [Mass/Vol]1.30 mg/dLNormal 0.70-1.30The [facility] CenterComment on above:Performed By: #### ELEC, BUN, BNP, LIVER, CREA #### [facility] [address] [place] [address] Dr. Brumfield ChangEGFR-AF SOUTH [place]ESE>60Normal>=60[facility] Healthment on above:Performed By: #### ELEC, BUN, BNP, LIVER, CREA #### [facility] [address] [place] [address] Dr. Brissa HoytGFR-NON AF UHRDVRYQ36 mL/min/1.64r3Vqfbrnntjv low>=60The [facility] Hospitalment on above:Performed By: #### ELEC, BUN, BNP, LIVER, CREA #### [facility] [address] [place] [address] Dr. Brissa HoytLECTROLYTESon 49-40-9092Nystl gap [Moles/Vol]12.3 mmol/LNormal The [facility] CenterComholland hospital on above:Performed By: #### ELEC, BUN, BNP, LIVER, CREA #### [facility] [address] [place] [address] Dr. Brissa MaChloride [Moles/Vol]106 mmol/WWdfxda25-122Umq [facility] Comment on above:Performed By: #### ELEC, BUN, BNP, LIVER, CREA #### [facility] [address] [address] [address] Brissa MaCO2 [Moles/Vol]24.3 mmol/SYrjvro26.0-32.0[facility] Comment on above:Performed By: #### ELEC, BUN, BNP, LIVER, CREA #### [facility] [address] [address] [address] Brissa MaPotassium [Moles/Vol]4.6 mmol/LNormal3.5-5.1The [facility] Comment on above:Performed By: #### ELEC, BUN, BNP, LIVER, CREA #### [facility] [address] [address] [address] Brissa MaSodium [Moles/Vol]138 mmol/IRjnhdl811-528UglMercy Memorial Hospital Comment on above:Performed By: #### ELEC, BUN, BNP, LIVER, CREA #### [facility] [address] [place] [address] Dr. Brissa MaGLYCOHEMOGLOBIN A1Con [id number] RECOMMENDATIONSEE BELOWAcmc Healthcare System GlenbeighComment on above:Result Comment: ADA RECOMMENDED LIMIT 4.0 - 6.0 ADA THERAPEUTIC TARGET < 7.0 ACTION SUGGESTED > 7.0Performed By: #### A1C #### [facility] [address] [address] [address] Brissa MaGlucose [Mass/Vol]189 mg/dLNoCity HospitalComment on above:Performed By: #### A1C #### [facility] [address] [place] [address] Dr. Brissa MaHbA1c (Bld) [Mass fraction]8.2 %Critically high4.5-6.2The [facility] CenterComment on above:Performed By: #### A1C #### [facility] [address] [place] [address] Dr. Brissa MaLIPID PROFILEon 14-54-1152IICX-HDL RATIO NORMSEE BELOWMercy Health Willard HospitalComment on above:Result Comment: 3.3 - 4.4 LOW RISK 4.4 - 7.1 AVERAGE RISK 7.1 - 11.0 MODERATE RISK >11.0 HIGH RISKPerformed By: #### CREA, ELEC, LIPID, LIVER, BUN #### [facility] [address] [address] [address] Brissa MaCholesterol [Mass/Vol]75 mg/dLNormal<=200[facility] Comment on above:Performed By: #### CREA, ELEC, LIPID, LIVER, BUN #### [facility] [address] [address] [address] Brissa Dacostaesterol in HDL [Mass/Vol]33 mg/dLCritically jhh74-56GgmMercy Memorial HospitalComment on above:Performed By: #### CREA, ELEC, LIPID, LIVER, BUN #### [facility] [address] [place] [address] Dr. Brissa Dacostaesterol in LDL [Mass/Vol]22.0 mg/dLNoCity HospitalComment on above:Performed By: #### CREA, ELEC, LIPID, LIVER, BUN #### [facility] [address] [address] [address] Brissa [place].total/Cholesterol in HDL [Mass ratio]2.3 {ratio} NormalMercy Memorial HospitalComholland hospital on above:Performed By: #### CREA, ELEC, LIPID, LIVER, BUN #### [facility] [address] [place] [address] Dr. Brissa Rothman NORMAL> or = 60 mg/dl - LOW CARDIOVASCULAR RISK <40 mg/dl - HIGH CARDIOVASCULAR RISKMercy Health Willard HospitalComment on above:Performed By: #### CREA, ELEC, LIPID, LIVER, BUN #### [facility] [address] [place] [address] Dr. Brissa MaLDL CALC NORMALSEE BELOWMercy Health Willard HospitalComment on above:Result Comment: <100 mg/dl OPTIMAL 100 - 129 mg/dl NEAR OR ABOVE OPTIMAL 130 - 159 mg/dl BORDERLINE HIGH 160 - 189 mg/dl HIGH >190 mg/dl VERY HIGH Performed By: #### CREA, ELEC, LIPID, LIVER, BUN #### [facility] [address] [address] [address] Brissa MaTriglyceride [Mass/Vol]100 mg/dLNormal<=150The [facility] Comment on above:Performed By: #### CREA, ELEC, LIPID, LIVER, BUN #### [facility] [address] [address] [address] Brissa MaVLDL CALC20.0 mg/dLNormalThe [facility] CenterComment on above: Performed By: #### CREA, ELEC, LIPID, LIVER, BUN #### [facility] [address] [place] [address] Dr. Brissa Michelle PROFILEon 12-84-5011Jsbrfud [Mass/Vol]3.4 g/dLNormal3.4-5.[address] [facility] CenterComment on above:Performed By: #### ELEC, BUN, BNP, LIVER, CREA #### [facility] [address] [place] [address] Dr. Brissa MaAlbumin/Globulin [Mass ratio]1.0 {ratio}NormalThe [facility] CenterComholland hospital on above:Performed By: #### ELEC, BUN, BNP, LIVER, CREA #### [facility] [address] [place] [address] Dr. Brissa Baxter [Catalytic activity/Vol]96 U/CXzpoej01-986Yrn [facility] on above:Performed By: #### ELEC, BUN, BNP, LIVER, CREA #### [facility] [address] [place] [address] Dr. Brissa Hand [Catalytic activity/Vol]24 U/VVmumdp99-58Icc [facility] on above:Performed By: #### ELEC, BUN, BNP, LIVER, CREA #### [facility] [address] [place] [address] Dr. Brissa MaAST [Catalytic activity/Vol]14 U/LCritically ebf23-88Xpz [facility] on above:Performed By: #### ELEC, BUN, BNP, LIVER, CREA #### [facility] [address] [address] [address] Brissa SanchezI, CONJUGATED0.1 mg/dLNormal0.0-0.2[facility] Comment on above:Performed By: #### ELEC, BUN, BNP, LIVER, CREA #### [facility] [address] [address] [address] Brissa Sanchezirubin [Mass/Vol]0.4 mg/dLNormal0.2-1.0[facility] Comment on above:Performed By: #### ELEC, BUN, BNP, LIVER, CREA #### [facility] [address] [address] [address] Brissa MaGlobulin (S) [Mass/Vol]3.5 g/dLNormalThe [facility] CenterComment on above:Performed By: #### ELEC, BUN, BNP, LIVER, CREA #### [facility] [address] [address] [address] Brissa MaProtein [Mass/Vol]6.9 g/dLNormal6.4-8.2[facility] Comment on above:Performed By: #### ELEC, BUN, BNP, LIVER, CREA #### [facility] [address] [place] [address] Dr. Brissa Ma Vital Signs Date TimeVital SignValuePerforming IizpweyktVzkxpgpy60-45-1953 11:06-0400Body arnyzx147.2 cmStephanie Brown MD Work Phone: [facility]09-10-2025 11:06-0400 Body mass index (BMI) [Ratio]30.07 kg/r8CwdfboStephanie Borwn MD Work Phone: [facility]09-10-2025 11:06-0400 Body .09 kgStephanie Brown MD Work Phone: [facility]09-10-2025 11:06-0400 Diastolic blood owmrkjdm90 mm[Hg]Stephanie Brown MD Work Phone: [facility]09-10-2025 11:06-0400 Heart rate68 /minStephanie Brown MD Work Phone: [facility]09-10-2025 11:06-0400 Systolic blood ptommoih641 mm[Hg]Stephanie Brown MD Work Phone: [facility]08-15-2025 09:30-0400 Body .2 cmAllison Petznick DO Work Phone: [phone] [place], [place] [address]Dyfmztgjwh04-48-6140 09:30-0400Body mass index (BMI) [Ratio]29.66 kg/l5Ymdeful Petznick DO Work Phone: 1(100)[facility] HospitalChildren[facility] HospitalZuvhzmrsms08-60-4578 09:30-0400Body temperature 96.3 [degF]Veda Petznick DO Work Phone: 1(681)[facility] HospitalChildren[facility] HospitalHpjvgqrrkp41-37-1045 09:30-0400Body owtiuv83.91 kgAllison Petznick DO Work Phone: [facility] HospitalPjwdixevok59-59-2401 09:30-0400Diastolic blood ymelnmgo23 mm[Hg]Veda Petznick DO Work Phone: [phone] HospitalVgcdnddogz50-30-2634 09:30-0400Heart rate84 /min Veda Petznick DO Work Phone: 1(750)[facility]1199[facility] HospitalNskvdrxthx06-86-6385 09:30-8332AfP1% (BldA) [Mass fraction]98 %Veda Petznick DO Work Phone: [facility] HospitalDhgcaeuvdl42-68-6938 09:30-0400Systolic blood ctknalzt446 mm[Hg]Veda Petznick DO Work Phone: 1(234)699-[address] [place], [place] [address]Jjaruothrg68-12-0901 09:23-0400Body bzobfv025.2 cmAllison Petznick DO Work Phone: [facility] HospitalPfslasrpba58-20-1152 09:23-0400Body mass index (BMI) [Ratio]28.35 kg/m2Pitzhxv Petznick DO Work Phone: [phone])576-[address] [place], [place] [address]Itgpzafxqk73-58-6756 09:23-0400Body temperature 98.2 [degF]Veda Petznick DO Work Phone: [phone])[address] [place], [place] 1283605-20-2025 09:23-0400Body dxjlok92.1 kg Veda Petznick DO Work Phone: 1(419)[address] [place], [place] 1283605-20-2025 09:23-0400Diastolic blood ulgfdvud11 mm[Hg]Veda Petznick DO Work Phone: 1(419)[address] [place], [place] 1283605-20-2025 09:23-0400Heart rate82 /min Veda Petznick DO Work Phone: 1(419)[address] [place], [place] 1283605-20-2025 09:23-2136MoR5% (BldA) [Mass fraction]98 %Veda Petznick DO Work Phone: 1(419)[address] [place], [place] 1283605-20-2025 09:23-0400Systolic blood mm[Hg]Veda Petznick DO Work Phone: 1(419)[address] [place], [place] 1283602-17-2025 12:54-0500Body zvghoh303.2 cmAllison Petznick DO Work Phone: 1(419)[address] [place], [place] 1283602-17-2025 12:54-0500Body mass index (BMI) [Ratio]27.88 kg/c8Vannhso Petznick DO Work Phone: 1(419)[address] [place], [place] 1283602-17-2025 12:54-0500Body temperature 98.2 [degF]Veda Petznick DO Work Phone: 1(419)[address] [place], [place] 1283602-17-2025 12:54-0500Body kbmlfa63.74 kgAllison Petznick DO Work Phone: 1(419)[address] [place], [place] 1283602-17-2025 12:54-0500Diastolic blood gddkbrza33 mm[Hg]Veda Petznick DO Work Phone: 1(419)[address] [place], [place] 1283602-17-2025 12:54-0500Heart rate76 /min Veda Petznick DO Work Phone: 1(419)[facility] [place], [place] [address]Jpldgdzwdi84-67-8191 12:54-3270OjP0% (BldA) [Mass fraction]97 %Veda Petznick DO Work Phone: 1(503)367-[address] [place], [place] [address]Alktkmmyne42-78-2664 12:54-0500Systolic blood mm[Hg]Veda Petznick DO Work Phone: 1(681)255-[address] [place], [place] [address]Veywmziwhs51-02-6721 15:16-0500Body .2 cmStephanie Brown MD Work Phone: 1(653)251-[address] [place], [place] 4351201-08-2025 15:16-0500 Body mass index (BMI) [Ratio]28.19 kg/e6IqnvwpStephanie Brown MD Work Phone: 1(471)[address]01-08-2025 15:16-0500 Body hgoyto20.65 kgStephanie Brown MD Work Phone: 1(385)[address]01-08-2025 15:16-0500 Diastolic blood cyiwthsu66 mm[Hg]Stephanie Brown MD Work Phone: 1(829)[address]01-08-2025 15:16-0500 Heart rate68 /minStephanie Brown MD Work Phone: 1(747)[address]01-08-2025 15:16-0500 Systolic blood xbvbodfm303 mm[Hg]Stephanie Brown MD Work Phone: 1(089)[address]11-18-2024 09:01-0500 Body liyrsi316.2 cmAllison Petznick DO Work Phone: 1(076)025-[address] [place], [place] [address]Mfsvfojiwh57-65-2304 09:01-0500Body mass index (BMI) [Ratio]28.19 kg/w6Toaspkz Petznick DO Work Phone: 1(332)251-[address] [place], [place] [address]Cdctoywwgu60-50-3805 09:01-0500Body temperature 98.01 [degF]Veda Petznick DO Work Phone: 1(345)463-[address] [place], [place] [address]Sjzptzyild38-77-6117 09:01-0500Body sgekjs67.65 kgAllison Petznick DO Work Phone: 1(582)499-[address] [place], [place] [address]Xobhudfndt16-37-9407 09:01-0500Diastolic blood ybijuluc92 mm[Hg]Veda Petznick DO Work Phone: [facility] HospitalKdnhxyrass74-29-5455 09:01-0500Heart rate92 /min Veda Petznick DO Work Phone: [facility] HospitalDnwyeydzac77-54-9074 09:01-1216JdS1% (BldA) [Mass fraction]94 %Veda Petznick DO Work Phone: [facility] HospitalJbrnaowuqf66-61-6359 09:01-0500Systolic blood qsnbgjaq260 mm[Hg]Veda Petznick DO Work Phone: [facility] HospitalDkbrymarkl91-05-3365 13:27-0400Body gccubi613.2 cmSultanafernanda Calderon DPM Work Phone: [facility] HospitalLltobwcgzc48-43-2126 13:27-0400Body mass index (BMI) [Ratio]28.04 kg/x9Izrqmtxk Jax DPM Work Phone: 1([phone])394-[address] [place], [place] [address]Joaikptqtm00-79-8071 13:27-0400Body .19 kgKennedy Jax DPM Work Phone: [facility] HospitalGovovaupun90-82-3257 13:27-0400Respiratory rate17 /minAbielsara Calderon DPM Work Phone: [facility] HospitalTiogpglheq01-61-1274 13:58-0400Body .2 cmAllison Petznick DO Work Phone: [facility] HospitalDbyiqucrim77-11-0575 13:58-0400Body mass index (BMI) [Ratio]28.16 kg/y2Ocsczrg Petznick DO Work Phone: [facility] HospitalMrjtfhlhxr34-65-5822 13:58-0400Body temperature 96.4 [degF]Veda Petznick DO Work Phone: [facility] HospitalEazttnoeze68-36-9606 13:58-0400Body demckc25.56 kgAllison Petznick DO Work Phone: noSaint John's HospitalNhphyerefu93-43-4626 13:58-0400Diastolic blood yanwsjkm99 mm[Hg]Veda Petznick DO Work Phone: noSaint John's HospitalYwgjkmsjfd83-70-6334 13:58-0400Heart rate74 /min Veda Petznick DO Work Phone: noSaint John's HospitalOhmsvoayjs64-12-0137 13:58-1094AvV4% (BldA) [Mass fraction]98 %Veda Petznick DO Work Phone: noSaint John's HospitalTfzyqrlqok47-68-4591 13:58-0400Systolic blood amqonkse438 mm[Hg]Veda Petznick DO Work Phone: noSaint John's HospitalGibiaritxz26-66-1548 13:40-0400Body nkjzeg501.6 cmHenrry Purvis MD Work Phone: 1([phone] [place], [place] 4351205-24-2024 13:40-0400 Body mass index (BMI) [Ratio]30.02 kg/m0WqfzlvyHenrry Purvis MD Work Phone: 1(644)[address]05-24-2024 13:40-0400 Body iplfrs96.37 kgHenrry Purvis MD Work Phone: [phone] [place], [place] 4351205-24-2024 13:40-0400 Diastolic blood xxwdhweq36 mm[Hg]Henrry Purvis MD Work Phone: 1(229)[address]05-24-2024 13:40-0400 Heart rate82 /minWirio Purvis MD Work Phone: [phone] [place], [place] 4351205-24-2024 13:40-0400 Systolic blood mm[Hg]Henrry Purvis MD Work Phone: 1(006)[address]02-07-2024 13:24-0500 Body ypdcbi590.2 cmMajun BROOKS Work Phone: [facility] HospitalRxfovovvvv18-22-7134 13:24-0500Body mass index (BMI) [Ratio]28.19 kg/t1IbmptwmNegro BROOKS Work Phone: [facility] HospitalYcidqndxfm24-53-9165 13:24-0500Body .65 kgMatthew Kevin BROOKS Work Phone: [facility] HospitalFfbdwsqbri66-00-4332 14:28-0500Body kogufo951.2 cmHenrry Purvis MD Work Phone: [facility]11-15-2023 14:28-0500 Body mass index (BMI) [Ratio]30.07 kg/i6WslfiexHenrry Purvis MD Work Phone: [address] [place], [place] 3955611-15-2023 14:28-0500 Body rzrpur31.09 kgHenrry Purvis MD Work Phone: 1(622)568-[address] [place], [place] 4351211-15-2023 14:28-0500 Diastolic blood vlqaaaxw84 mm[Hg]Henrry Purvis MD Work Phone: [facility]11-15-2023 14:28-0500 Heart rate92 /minHenrry Purvis MD Work Phone: [facility]11-15-2023 14:28-0500 Systolic blood vrzcejjt552 mm[Hg]Henrry Purvis MD Work Phone: [address] [place], [place] 3955611-03-2023 11:43-0400 Body mass index (BMI) [Ratio]30.4 kg/m2JR Hugo Moser Work Phone: [facility]11-01-2023 13:51-0400 Diastolic blood vzpkowed61 mm[Hg]JR Hugo Moser Work Phone: [facility]11-01-2023 13:51-0400 Heart rate83 /minJR Hugo Moser Work Phone: [facility]11-01-2023 13:51-0400 Respiratory rate14 /minJR Hugo Moser Work Phone: [facility]11-01-2023 13:51-0400 SaO2% (BldA) [Mass fraction]98 %JR Hugo Moser Work Phone: [facility]11-01-2023 13:51-0400 Systolic blood otafsssv679 mm[Hg]JR Hugo Moser Work Phone: 1(112)086-[address] [place], [place] 4428111-01-2023 12:00-0400 Body hjufegadwoz68.8 [degF]JR Hugo Moser Work Phone: 8(540)298-[address] [place], [place] 44[address]111-01-2023 06:00-0400 Body .5 kgJR Hugo Moser Work Phone: [phone] [place], [place] [address]28110-31-2023 15:37-0400 Inhaled oxygen flow rate6 L/minJAlex Moser Work Phone: [phone]10-31-2023 15:12-0400 Body cjehcj544.18 cmJR Hugo Moser Work Phone: [phone]10-31-2023 15:12-0400 Body mass index (BMI) [Ratio]30.4 kg/m2JR Hugo Moser Work Phone: [phone] [place] [address] Encounters Encounter DateEncounter TypeCare ProviderFacilityStart: 11-09-2024 End: 68-31-3857Wklmcr outpatient visit 25 minutesStephanie Brown MD Work Phone: uh [facility] HospitalComment on above:Paroxysmal atrial fibrillation (Multi) (Primary Dx); History of cardiomyopathy; Mild tricuspid regurgitation; AV block, Mobitz II; Pacemaker; Mixed hyperlipidemia; Diabetes mellitus type II, non insulin dependent (Multi); Obesity (BMI 30.0-34.9); Never smoked tobacco; High risk medication useStart: 11-09-2024 End: 60-56-3436nstktphzzgVMFFWB M IBRAHIMMer[facility] Health [facility] AmbulatoryStart: 10-18-2024 End: 56-01-1490uhoqpokzxeBiesfh IbrahimFacility:[facility] Andersontart: 71-26-1978Wpe-patient / Non-visitGildardo Teran-Heart Rhythm ClinicStart: 10-14-2024 End: 87-29-9050Sxzeoq outpatient visit 25 minutesAlljose Arevalo Petznick DO Work Phone: [facility] 230Comment on above:Type 2 diabetes mell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, with long-term current use of insulin (HCC)Start: 10-14-2024 End: 44-86-4731yvjytfhlgyWCHYQWP Mickey PETZNICKNot AvailableStart: 08-02-2024 End: 28-94-6706Kebpycyej encounterAllison Mickey Petznick DO Work Phone: [facility] 230Comment on above:Blood Sugar Problem Start: 07-19-2024 End: 36-13-4173hhkmueoahlYuourv IbrahimLos Alamos Medical Center:[facility] Andersontart: 07-19-2024 End: 11-70-3127Mmwxhd outpatient visit 25 minutesAllison Mickey Petznick DO Work Phone: [facility] 230Comment on above:Type 2 diabetes mell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, with long-term current use of insulin (HCC) ([facility]/HCC) (Primary Dx); Type 2 diabetes mell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, without long-term current use of insulin (HCC) (CMS/HCC)Start: 07-19-2024 End: 21-09-5587myjeevvoslGGUQCTE M PETZNICKNot AvailableStart: 07-18-2024 End: 44-26-0145Jhodpmjln encounterAllison M Petznick DO Work Phone: [facility] 230Comment on above:Appointment ConfirmationStart: 04-18-2024 End: 29-57-5401Ufjywk outpatient visit 25 minutesAllison Mickey Petznick DO Work Phone: [facility] 230Comment on above:Type 2 diabetes mell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, without long-term current use of insulin (HCC) (CMS/HCC)Start: 04-18-2024 End: 31-24-1499tpicmoxxcpHTTJSKL Mickey PETZNICKNot AvailableStart: 04-15-2024 End: 07-05-3241Cyjzpzbhv encounterAllison M Petznick DO Work Phone: [facility] 230Comment on above:Appointment ConfirmationStart: 04-15-2024 End: 88-00-0599Uskvblz encounter procedureCharmolina Moser JR Work Phone: [facility]-Pacemaker CheckStart: 04-15-2024 End: 90-83-3196dbrlzlhartWefwihk L Valone JR Work Phone: [facility] Work Phone: Start: 35-72-4289Ohg-patient / Non-visitCharmolina Moser JR Work Phone: [facility]-Heart Rhythm ClinicStart: 03-09-2024 End: 06-46-3740Krxrzg outpatient visit 25 minutesStephanie Brown MD Work Phone: Critical access hospitallandsComment on above:Pacemaker (Primary Dx); AV block, Mobitz II; Mixed hyperlipidemia; Paroxysmal atrial fibrillation (Multi); Mild tricuspid regurgitation; Diabetes mellitus type II, non insulin dependent (Multi); BMI 28.0-28.9,adult; Never smoked tobacco; OverweightStart: 03-09-2024 End: 55-08-4143rcwrgafdrpYRBFDU M [facility] AmbulatoryStart: 02-17-2024 End: 26-26-4512Sibjfv flowsheetJr. Gini Cárdenas DO Work Phone: noms [facility] ORTHOStart: 02-17-2024 End: 44-41-5558Gumhyj flowsheetJr. Gini Cárdenas DO Work Phone: NOCJ [facility] ORTHOStart: 02-17-2024 End: 66-34-9788Ltxpec outpatient visit 15 minutesJr. Gini Cárdenas DO Work Phone: noms [facility] ORTHOComment on above:Rotator cuff arthropathy, right (Primary Dx); Shoulder arthritisStart: 02-17-2024 End: 16-19-0080rleqnwebufVI., GINI CÁRDENASNot AvailableStart: 01-18-2024 End: 62-82-7771Jgwrwu flowsheetVeda Rome DO Work Phone: N[facility] FM 230Start: 01-18-2024 End: 57-18-0042Bzveae flowsDavid Rome DO Work Phone: N[facility] FM 230Start: 01-18-2024 End: 28-07-0755Bcizza outpatient visit 25 minutesVeda Rome DO Work Phone: [facility] 230Comment on above:Type 2 diabetes mell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, without long-term current use of insulin (HCC) (CMS/[facility]); Type 2 diabetes mellitus with hyperglycemia, without long-term current use of insulin ([facility])Start: 01-18-2024 End: 77-90-8867ejochumywuUVLTVDZ M PETZNICKNot AvailableStart: 01-15-2024 End: 95-21-9375bbywdfchkmWddhlz [facility]hillsFacility:[facility] Andersontart: 38-57-4406Udr-patient / Non-visitC[facility] Health [facility] Physician Group-Heart Rhythm ClinicStart: 01-14-2024 End: 00-97-3926Lrvzvcvqm encounterVeda Rome DO Work Phone: [facility] 230Start: 12-10-2023 End: 14-05-5591Wrnyjd flowsMay Calderon DPM Work Phone: NOMS CI PODIATRYStart: 12-10-2023 End: 42-50-8789Wuzvam flowsMay Calderon DPM Work Phone: N[facility] CI PODIATRYStart: 12-10-2023 End: 43-05-4602Yakkjbv encounter procedureKennedy Calderon DPM Work Phone: NOMS CI PODIATRYComment on above:Type 2 diabetes mellitus without complication, unspecified whether salvage determiner insulin use ([facility]) (Primary Dx); Pain due to onychomycosis of toenails of both feetStart: 12-10-2023 End: 94-38-4341tsuamwhkmjKWSSNYFC A BROWNNot AvailableStart: 12-03-2023 End: 40-38-6977Wscffu outpatient new 45 minutesVeda Rome DO Work Phone: noms [facility] FM 230Comment on above:Type 2 diabetes mell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, without long-term current use of insulin (HCC) (CMS/HCC) (Primary Dx); Type 2 diabetes mellitus with hyperglycemia, without long-term current use of insulin (CMS/HCC)Start: 12-03-2023 End: 61-45-4798atneudfbqtOOKPJLE M PETZNICKNot AvailableStart: 12-02-2023 End: 47-52-5178Qblhabblz encounterVeda Rome DO Work Phone: noms [facility] FM 230Start: 89-82-9461Cob-patient / Non-visitCone Health [facility] Physician Group-Heart Rhythm ClinicStart: 10-16-2023 End: 16-87-2802grhzpsmevyMK Charles L Valone Work Phone: [facility] Work Phone: Start: 10-16-2023 End: 24-72-0825Gzxurxk encounter procedureJAlex Moser Work Phone: [facility]-Pacemaker CheckStart: 07-24-2023 End: 98-63-0261Ggxqev outpatient visit 25 minutesHenrry Purvis MD Work Phone: [facility] AlabamaComment on above:Non-ischemic cardiomyopathy (Multi) (Primary Dx); AV block, Mobitz II; Pacemaker; Mixed hyperlipidemia; BMI 30.0-30.9,adultStart: 04-15-2023 End: 28-64-0705ledfsqsnniZB Charles L Valone Work Phone: [facility] Work Phone: Start: 04-15-2023 End: 24-60-5522Srkpvjo encounter procedureJR Hugo Moser Work Phone: [facility]-Pacemaker CheckStart: 04-08-2023 End: 24-38-3436Emahbu outpatient new 45 minutesNegro BROOKS Work Phone: noms [facility] ORTHOComment on above:Acute pain of right shoulder; Rotator cuff arthropathy, right; Arthritis of right acromioclavicular jointStart: 01-14-2023 End: 74-05-4990Jrbzbm outpatient visit 25 minutesHenrry Purvis MD Work Phone: uh FirelandsComment on above:AV block, Mobitz II; Pacemaker; Obesity (BMI 30.0-34.9)Start: 01-08-2023 End: 43-79-5496gtjsuecweqWV Hugo Josy Moser Work Phone: [facility] Work Phone: Start: 01-08-2023 End: 42-07-5775Xnhemis encounter procedureJR Hugo Ciro Work Phone: [facility]-XRay [place] Work Phone: Start: 12-28-2022 End: 21-92-3365Ygiakkqokd and management of inpatientJR Hugo Moser Work Phone: [facility] [place] [facility] Work Phone: Start: 05-19-2022 End: 96-40-6062rqwmkqdsbhGC HUGO MOSERFacility:C0Qrhbv: 01-22-2022 End: 42-29-1121uywbpmzwhwOH HUGO MOSERFacility:I8Jnpki: 07-72-5142Yktluxxil for general adult medical examination without abnormal findingsDR HUGO MOSER [facility] Ohiotart: 10-08-2021 End: 75-67-5400nonkesknwiMQ HUGO MOSERFacility:B5Nfemf: 10-08-2021 End: 05-52-8358Qtrradgfi for general adult medical examination without abnormal findingsDR HUGO MOSERFacility:H1 Procedures DateProcedureProcedure DetailPerforming ClinicianStart: 56-59-2817Yvhusxdhea glycosylated f5wYpzsoqvjose Rome DO Work Phone: Start: 95-37-2422Nxmfiuoytl glycosylated w3bJsekuohVeda Salazarick DO Work Phone: Start: 01-18-9138Vxrawsmxtv glycosylated s7lAeldvirVeda Rome DO Work Phone: Start: 44-74-4817Zea routine ecg w/least 12 lds w/i&r Stephanie Brown MD Work Phone: Start: 22-97-5414Lzeqfiqjvb glycosylated h3vYrfciafVeda Rome DO Work Phone: Start: 86-80-2062Sbvwf chest X-rayJR Hugo Moser Work Phone: Start: 04-08-2023 End: 30-40-6356Rnwofggnrsncop aspir&/inj major jt/bursa w/o usMatthew J Kevin BROOKS Work Phone: Start: 71-69-3085Yswmq chest X-rayJR Hugo Moser Work Phone: Start: 73-69-4310Rfduc chest X-rayJR Hugo Moser Work Phone: Start: 65-49-9695Mrjvp chest X-rayJR Hugo Moser Work Phone: Start: 20-04-5798Uqizymngchxf of cardiac pacemakerJR Hugo Moser Work Phone: Plan of Treatment DateCare ActivityDetailAuthorStart: 06-20-2025 End: 91-90-0489Fmqhpbu encounter myhujlmyx36/21/2026 11:10 AM EDT Office Visit [facility] [address] [facility] [address] [place] [address] Stephanie Brown MD [address] [facility] [address] [place] [address] [facility] AlabamaStart: 01-13-2025 End: 88-22-3804Zfvkcnq encounter pkqfoxigw34/14/2025 8:45 AM EST Office Visit ROSE MARIE Roque [facility] [address] [place] [address] Veda Rome, DO [address] [place] [address] [facility] [place] [facility] 230 Start: 11-09-2024 End: 22-08-2829Oleixfc aminotransferase [Enzymatic activity/volume] in Serum or Plasma by With P-5'-PAlanine Aminotransferase Lab Routine Mixed hyperlipidemia Expected: 11/09/2024 (Approximate), Expires: 11/09/2025[facility] Service Area Work Phone: Comment on above:Expected: 11/09/2024 (Approximate), Expires: 11/09/2025Start: 11-09-2024 End: 07-32-8064Aghsu metabolic 2000 panel - Serum or PlasmaBasic Metabolic Panel Lab Routine History of cardiomyopathy Expected: 11/09/2024 (Approximate), Expi res: 11/09/2025[facility] Work Phone: Comment on above:Expected: 11/09/2024 (Approximate), Expires: 11/09/2025Start: 11-09-2024 End: 89-06-5012KXX panel - Blood by Automated countCBC Lab Routine History of cardiomyopathy Expected: 11/09/2024 (Approximate), Expires: 11/09/2025[facility] Work Phone: Comment on above:Expected: 11/09/2024 (Approximate), Expires: 11/09/2025Start: 11-09-2024 End: 54-61-6117Ihifo 1996 panel - Serum or PlasmaLipid Panel Lab Routine Mixed hyperlipidemia Expected: 11/09/2024 (Approximate), Expires: 11/09/2025[facility] Work Phone: Comment on above:Expected: 11/09/2024 (Approximate), Expires: 11/09/2025Start: 11-09-2024 End: 29-82-8605Slgpzaz encounter udbcljoxo11/10/2025 11:00 AM EDT Office Visit [place] [address] [facility] [address] [place] [phone] Stephanie Brown MD [address] [facility] [address] [place] [address] [facility] AlabamaStart: 24-84-8788JCUHI-19 Vaccine ( season)COVID-19 Vaccine ( season)[facility] Start: 47-40-3063Ajjijyphm vaccinationNOME HealthcareStart: 10-14-2024 End: 27-29-6835Hnjlhwg encounter ratybcjbz47/15/2025 9:45 AM EDT Office Visit [facility] [address] [place] [phone] Veda Rome, DO [address] [place] [address] [facility] 230Start: 07-19-2024 End: 47-15-9127Ymskqdo encounter procedureNOKAISER FOUND[facility] 230Comment on above:Type 2 diabetes mell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, without long-term current use of insulin (HCC) ([facility])Start: 04-18-2024 End: 80-65-8205Vfxpcrm encounter jlpaqjfpi68/17/2025 1:00 PM EST Office Visit [facility] [address] [place] [phone] Veda Rome, DO [address] [place] [address] [facility] 230Start: 03-09-2024 End: 93-28-8717Drtxwpl encounter wkbdimidz94/08/2025 10:50 AM EST Office Visit [facility] [address] [facility] [address] [place] [phone] Stephanie Brown MD [address] [facility] [facility] [address] [place] [address] [facility] AlabamaStart: 02-17-2024 End: 02-26-1637Kzevujx encounter procedureNOMS SWS ORTHOComment on above:Arrived Start: 01-15-2024 End: 56-23-2734Ttqayip encounter mkzwlvyvb17/15/2024 2:00 PM EST Office Visit [facility] [address] [place] [phone] Veda Rome, DO [address] [place] [address] [facility] 230Start: 12-10-2023 End: 59-30-5506Wptwgnt encounter procedureNOMS CI PODIATRYComment on above:Type 2 diabetes mellitus without complication, unspecified whether fdc insulin use ([facility]) (Primary Dx); Pain due to onychomycosis of toenails of both feetStart: 12-03-2023 End: 01-94-9261Igmehzh encounter jujkosrnp77/03/2024 2:00 PM EDT Office Visit [facility] [address] [place] [phone] Veda Rome, DO [address] [place] [address] [facility] 230Start: 24-61-5905LRSKE-19 Vaccine ( season)COVID-19 Vaccine ( season)[facility] HospitalStart: 97-32-6365Zgavhaquv vaccinationTriHealth Good Samaritan Hospital Start: 07-24-2023 End: 57-18-8411Lbaywcn encounter /24/2024 1:40 PM EDT Office Visit [facility] [address] [facility] [address] [place] [address] Henrry Purvis MD [address] [facility] [address] [place] [address] [facility]: 05-11-2023 End: 57-36-4106Mzjyypk encounter dvbitctim04/11/2024 10:45 AM EDT Office Visit [facility] [address] [place] [phone] Jr. Gini Cárdenas, DO [address] [place] [address] NOMS [facility] ORTHOStart: 31-35-6639QxhljudfaOur Lady of Mercy Hospital - Andersontart: 46-09-7019MevjchudcOur Lady of Mercy Hospital - Andersontart: 85-80-6159Qhnxefcfy of Pacemaker Lead into Right Atrium, Percutaneous Approach Insertion of Pacemaker Lead into Right Atrium, Percutaneous ApproachOur Lady of Mercy Hospital - Andersontart: 60-97-1368Ygsrtxqlr of Pacemaker Lead into Right Ventricle, Percutaneous ApproachInsertion of Pacemaker Lead into Right Ventricle, Percutaneous ApproachOur Lady of Mercy Hospital - Andersontart: 86-94-6165Demtyuyxx of Pacemaker, Dual Chamber into Chest Subcutaneous Tissue and Fascia, Open ApproachInsertion of Pacemaker, Dual Chamber into Chest Subcutaneous Tissue and Fascia, Open ApproachParkview Health [facility] Hospital Start: 44-03-9716Ddoovugy admissionOur Lady of Mercy Hospital - Andersontart: 41-10-7083Otibiyzs to cardiologistOur Lady of Mercy Hospital - Andersontart: 51-00-2060UJTJN-19 Vaccine ( season)COVID-19 Vaccine ( season)[facility]: 15-61-6542Dcqvlvdcv vaccination Influenza Vaccine (#1)[facility]: 64-13-3578JHPUH-19 Vaccine (4 - Moderna series)COVID-19 Vaccine (4 - Moderna series)[facility]: 41-43-1637Cpqztizgxwmt vaccinationPneumococcal Vaccine (2 of 2 - PCV)[facility]: 05-18-2019 Pneumococcal Vaccine: 65+ Years (2 - PCV)Pneumococcal Vaccine: 65+ Years (2 - PCV)[facility]: 07-37-2896Hiumlnvxksck Vaccine: 65+ Years (2 of 2 - PCV)Pneumococcal Vaccine: 65+ Years (2 of 2 - PCV)[facility]: 11-03-5894MFZ High Risk: (Elderly (60+) or Population) (1 - 1-dose 75+ series)RSV High Risk: (Elderly (60+) or Population) (1 - 1-dose 75+ series)[facility]: 95-25-2834DLD patients and/or patients aged 60+ years (1 - 1-dose 60+ series)RSV patients and/or patients aged 60+ years (1 - 1-dose 60+ series)[facility]: 77-97-0753Wvidlv Vaccines (1 of 2)Zoster Vaccines (1 of 2)[facility]: 08-18-1962 DTaP/Tdap/Td Vaccines (1 - Tdap)DTaP/Tdap/Td Vaccines (1 - Tdap)[facility]: 37-59-1506Omfed screening for proteinDiabetes: Urine Protein ScreeningUnWexner Medical Center: 08-18-1950 Diabetic foot examinationDiabetes: Foot ExamUnOhio State Health System Start: 50-51-5382Htwemrcr screeningDiabetes: Retinopathy ScreeningUnWexner Medical Center: 83-44-1392Wnunjpkmup A1c measurementDiabetes: Hemoglobin Y4DHpolksqvyhWexner Medical Center: 56-91-2838Aczvk panelLipid PanelUnWexner Medical Center: 06-19-1940Medicare Annual Wellness VisitMedicare Annual Wellness Visit (AWV)[facility]: 18-60-2592Cojhw screening for proteinDiabetes: Urine Protein ScreeningUnOhio State Health SystemPatient EducationClindamycin (Systemic)[facility] Work Phone: Patient referralGreene Memorial Hospital Ctr Work Phone: XR Shoulder - right 2 ViewsXR shoulder 2+ views right Imaging Routine Acute pain of right shoulder 04/08/2023 1:21 PM [facility] Work Phone: Immunizations Immunization DateImmunizationNotesCare QzkqarffGvcgmcix70-46-1275Dalstnn COVID- 19 vaccine, bivalent, blue cap/goff label *Check age/dose*Henrry Purvis MD Work Phone: [facility]12-02-2021influenza, injectable, quadrivalent, preservative Rona Purvis MD Work Phone: [facility] Work Phone: [phone]y virus vaccine, unspecified formulationHenrry Purvis MD Work Phone: [facility] Work Phone: [phone], injectable, quadrivalent, preservative Rona Purvis MD Work Phone: [facility] Work Phone: [phone] polysaccharide vaccine, 23 valentHenrry Purvis MD Work Phone: [facility] Work Phone: Payers DatePayer CategoryPayerPolicy [id number] Health InsuranceAARP [id number] 2023Medicare supplemental policy (as second payer)[employer] Member Subscriber Plan / Payer (Effective 2022-Present) Name: Emmanuel Jiménez Relation to Subscriber: Self Name: Emmanuel Jiménez Payer ID:Not on file Group ID: Not on file Type: Not on file Address: [address] [place] [id number] [id number] 2005Medicare [id number] [id number] 1960 [id number] 2..840.1.496234.3.579.2.593 [id number] 2.840.1.561349.3.579.[id number] 2.840.1.401433.3.57[id number] 2.16.840.1.585236.3.579.2.616068-34-5940Kgdwvvr3593508 2.16840.1.289835.3.57[id number] 2.16840.1.287734.3.57[id number] 2.16.840.1.130313.3.57[id number] 2.16840.1.075119.3.579.2.905221-02-4811Gpjkhzw7644975 2.16.840.1.639534.3.579.2.224905-42-6766Ekrgzmm5368839 2.16840.1.652095.3.579.2.310[id number] 2.16.840.1.866327.3.579.[id number] 2.16.840.1.96[id number] 2.16.840.1.381821.3.579.2.531 [id number] 2.16.840.1.3[id number] 2.16.840.1.3[id number] 2.16.840.1.881803.3.579.2.531 Social History DateTypeDetailFacilityStart: 12-30-2022 End: 80-43-9275Iufszpg smoking status NHISNever smoked tobacco (finding) [facility] Andersontart: 13-20-0717Zsq Assigned At BirthMale [facility] Andersontart: 01-14-2023 End: 95-64-5414Efakxsh use and exposureSmokeless tobacco non-userTriHealth Good Samaritan Hospital Work Phone: Start: 01-14-2023 End: 78-47-0790Yjoyhwo intakeLifetime non-drinker (finding)[facility] Work Phone: Start: 01-14-2023 End: 00-27-9450Khwfwby of Social functionUnOhio State Health System Work Phone: Start: 01-14-2023 End: 27-06-8339Xshfvim use panelTriHealth Good Samaritan Hospital Work Phone: Start: 61-57-0329Sbw Assigned At BirthNot on file [facility] Work Phone: Start: 01-04-2023 End: 05-84-7684Jqxjdscd to SARS-CoV-2 (event)Not sureUnMidCoast Medical Center – CentralvelandStart: 04-08-2023 End: 65-30-4414Rhezatj intakeCurrent drinker of alcohol (finding)[facility] Start: 01-19-2024 End: 36-96-9883HnxNjmx (finding)[facility] Andersontart: 01-18-2024 End: 88-24-7418Uydxpwahm beverage intakeEx-drinker (finding)[facility] HospitalHow often to you have a drink containing alcohol?NeverNOME HealthcareStart: 94-71-2508Vri many standard drinks containing alcohol do you have on a typical day?Patient does not drinkChildren's Mercy Hospital Medical Equipment Procedure CodeEquipment CodeEquipment Original TextEquipment IdentifierDates Insertion, pacemakerEndocardial pacing lead ()[id number] FDAStart: 80-02-0730Kqwyjmwcx, pacemakerEndocardial pacing lead()[id number] FDA Start: 58-64-5682Fnuaabwkn, pacemakerDual-chamber implantable pacemaker, rate-responsive()[id number] FDAStart: each by In Vitro route See administration instructions Check [id number]: each by In Vitro route 2 (two) times a [id number]: 08-11-2024 Goals DatePatient GoalDesired Activity/State Functional Status WkgjRoxufxeasbDgttpfPfohgzfi48-16-1642Zzzgjtw Health Questionnaire 2 item (PHQ- 2) [Reported][facility]cy HospitalNouugizniu41-80-8762Deibhmk Health Questionnaire 2 item (PHQ- 2) [Reported][facility] HospitalJrdowbfezd63-36-5741Ksfyndrisw statusPatient at Baseline [facility] Work Phone: Mental Status YsolEytrrpbyjmZrkiuxCpgkhsom74-88-5535Ihhkiwjov functionCognitive Status Patient at BaselineSheltering Arms Hospital Work Phone: Clinical Notes 12-28-2022 to 11-09-2024 Note Date & ScusPsupYzcgxtzp12-58-6449 History of Present illness Narrative* Stephanie Brown [...] mild tricuspid regurgitation without pulmonary hypertension. Assessment/recommendations: 8-fndw-fyxsp AV block status post permanent pacemaker 2022 [...] exam, discussion and plan. documented in this [facility] Work Phone: 1(995) 947-838509-10-2025 Instructions* Patient Instructions* Karuna Ashton LPN - [...] sent through Care Everywhere. * Heart-healthy diet (Faroese) documented in this [facility] Work Phone: [phone] 231-677808-15-2025 History of Present illness Narrative* Veda Rome [...] 1,000 mg BID with meals PO Labs [facility] HEMOGLOBIN A1C/HEMOGLOBIN.TOTAL:MFR:PT:BLD:QN: 8.7 Outpatient prescription Medication marked [...] with the patient today. documented in this encounterChildren's Mercy HospitalRlpeygcwhi73-71-8962 Evaluation note* Diagnosis Type 2 diabetes mellitus [...] of insulin (HCC) documented in this encounter [facility] HospitalGyfxopikld42-90-9086 Telephone encounter Note* Telephone Encounter - Elba [...] like to know what he should do. [facility] HospitalHawtkhvbvc79-25-1930 Miscellaneous Notes* Telephone Encounter - Elba Platt [...] what he should do. documented in this encounterChildren's Mercy HospitalJbflbsrgcu15-23-3986 History of Present illness Narrative* Veda Rome DO - 07/19/2024 12:17 PM EDTAssociated Problem(s): Type 2 diabetes mell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, with long-term current use of insulin (HCC) ([facility]) During the appointment today all pertinent labs, [...] long-term current use of insulin (HCC) ([facility]) Social History Tobacco Use Smoking status: Never [...] 1,000 mg BID with meals PO Labs [facility] HEMOGLOBIN A1C/HEMOGLOBIN.TOTAL:MFR:PT:BLD:QN: 9.0 Outpatient prescription Medication marked as long-term Patient-reported The ASCVD Risk score (Rosedale DK, et al., 2019) failed to calculate [...] with long-term current use of insulin (HCC) ([facility]) - Primary During the appointment today all [...] they have any problems or questions. Emmanuel Columbus blood sugars are worsening. , Instructed on [...] with the patient today. documented in this encounterChildren's Mercy HospitalUnsthbofrx52-52-4257 Evaluation note* Diagnosis Type 2 diabetes mell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, without long-term current use of insulin (HCC) ([facility]/HCC) Type 2 diabetes mell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, with long-term current use of insulin (HCC) ([facility]/HCC)- Primary Type 2 diabetes mell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, without long-term current use of insulin (HCC) ([facility]) documented in this encounter [facility] HospitalSamypkrhkq17-67-7934 Telephone encounter Note* Telephone Encounter - Elba Platt - 07/18/2024 2:54 PM EDT P/c appointment reminder. Pt confirmed [facility] HospitalEclwwbubmf89-19-6725 Miscellaneous Notes* Telephone Encounter - Elba Platt - 07/18/2024 2:54 PM EDT P/c appointment reminder. Pt confirmed documented in this encounterChildren's Mercy HospitalLrsqiqosrl73-83-3268 History of Present illness Narrative* Veda Rome DO - 04/18/2024 2:07 PM ESTAssociated Problem(s): Type 2 diabetes mell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, without long-term current use of insulin (HCC) ([facility]) During the appointment today all pertinent labs, [...] able to use. She is in a care home facility right now. He is asking if he could use it. SUBJECTIVE: PROBLEM LIST SOCIAL ALLERGIES: Patient Active Problem List Diagnosis HTN (hypertension) (CMS/HCC) Mixed hyperlipidemia (CMS/HCC) Mobitz type II atrioventricular block Localized, primary osteoarthritis of hand DVT (deep venous thrombosis) ([facility]/HCC) Non-ischemic cardiomyopathy ([facility]) Pacemaker Type 2 diabetes mell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, without long-term current use of insulin (HCC) ([facility]) Social History Tobacco Use Smoking status: Never [...] 1,000 mg BID with meals PO Labs [facility] HEMOGLOBIN A1C/HEMOGLOBIN.TOTAL:MFR:PT:BLD:QN: 8.1 Outpatient prescription Medication marked as long-term Patient-reported The ASCVD Risk score (Rosedale DK, et al., 2019) failed to calculate [...] without long-term current use of insulin ([facility]) ([facility]) During the appointment today all pertinent labs, [...] with the patient today. documented in this encounterChildren's Mercy HospitalDxbjigqbhf21-96-9918 Telephone encounter Note* Telephone Encounter - Elba Platt - 04/15/2024 1:06 PM EST LVM appointment reminder [facility] HospitalYhglrmvljr42-72-5960 Miscellaneous Notes* Telephone Encounter - Elba Platt - 04/15/2024 1:06 PM EST LVM appointment reminder documented in this encounterChildren's Mercy HospitalVsuguxisno53-40-1216 History of Present illness Narrative* Stephanie Brown [...] been followed by h is PCP. Assessment/recommendations: [id number] AV block status post permanent pacemaker 2022 [...] exam, discussion and plan. documented in this encounterTri[facility] Work Phone: 1([phone]) 117-288901-08-2025 Instructions* Patient Instructions* Ashtyn Rendon RN - [...] follow up per routine documented in this encounterTri[facility] Work Phone: 1(571) 900-588912-18-2024 History of Present illness Narrative* Jr. Gini [...] for requiring urgent evaluation. documented in this encounterChildren's Mercy HospitalGoccofivfj96-07-8678 History of Present illness Narrative* Veda Rome DO - 01/18/2024 12:37 PM ESTAssociated Problem(s): Type 2 diabetes mellitus with hyperglycemia, without long-term current use of insulin ([facility]) During the appointment today all pertinent labs, [...] without long-term current use of insulin (HCC) ([facility]) Social History Tobacco Use Smoking status: Never [...] hyperglycemia, without long-term current use of insulin ([facility]) During the appointment today all pertinent labs, [...] without long-term current use of insulin (HCC) ([facility]) Relevant Medications insulin glargine (Lantus SoloStar) 100 [...] with the patient today. documented in this [facility]11-14-2024 Telephone encounter Note* Telephone Encounter - Clara Ramos LPN - 01/14/2024 10:19 AM EST noted [facility] HospitalYknmjkjkrw77-99-9759 Miscellaneous Notes* Telephone Encounter - Clara Ramos LPN - 01/14/2024 10:19 AM EST noted * Telephone Encounter - Elba Platt - 01/14/2024 10:11 AM EST P/c to remind pt of appointment. Pt had to reschedule because his has testing all day tomorrow. Rescheduled for Thursday at 9:15. He voiced understanding documented in this encounterChildren's Mercy HospitalYyuuruceec04-15-3967 Telephone encounter Note* Telephone Encounter - Elba Platt - 01/14/2024 10:11 AM EST P/c to remind pt of appointment. Pt had to reschedule because his has testing all day tomorrow. Rescheduled for Thursday at 9:15. He voiced understanding [facility] HospitalCpibotqdqu27-09-1937 History of Present illness Narrative* Kennedy Calderon [...] Negative palpable pedal pulses bilaterally NEURO: 5.07 [place] Claudia monofilament test intact to digits and forefoot bilaterally 125Hz tuning fork diminished to 1st MPJ bilaterally ORTHO: Positive pain on palpation to nails 1 through 10 ASSESSMENT 1. Type 2 diabetes mellitus without complication, unspecified whether salvage determiner insulin use ([facility]) 2. Pain due to onychomycosis of toenails [...] gear. Kennedy Calderon DPM documented in this encounterChildren's Mercy HospitalGwrqbavsam78-94-7409 History of Present illness Narrative* Veda Rome DO - 12/03/2023 4:02 PM EDTAssociated Problem(s): Type 2 diabetes mellitus with hyperglycemia, without long-term current use of insulin ([facility]) During the appointment today all pertinent labs, [...] occasion (cinnamon toast crunch- low sugar) Lunch: [place] (ham), fruit (peaches, pears, melon) Dinner: Varies- [...] without long-term current use of insulin (HCC) ([facility]) Social History Tobacco Use Smoking status: Never [...] hyperglycemia, without long-term current use of insulin ([facility]) During the appointment today all pertinent labs, [...] they have any problems or questions. Emmanuel Columbus blood sugars are worsening. , Discussed dietary [...] without long-term current use of insulin ([facility]) ([facility]) - Primary Relevant Medications empagliflozin (Jardiance) 25 [...] with the patient today. documented in this encounterChildren's Mercy HospitalZgubtosmqq58-93-1891 Telephone encounter Note* Telephone Encounter - Elba Platt - 12/02/2023 12:50 PM EDT Pt's answered the phone. Reminded her of her 's appointment tomorrow with Dr. Mccollum. voiced understanding [facility] HospitalJewefvrrbg33-11-5733 Miscellaneous Notes* Telephone Encounter - Elba Platt - 12/02/2023 12:50 PM EDT Pt's answered the phone. Reminded her of her 's appointment tomorrow with Dr. Mccollum. voiced understanding documented in this [facility]05-24-2024 History of Present illness Narrative* Henrry [...] exam, discussion and plan. documented in this [facility] Work Phone: 1([phone]) 649-132905-24-2024 Instructions* Patient Instructions* Sal Henson MA - [...] time of your visit. documented in this [facility] Work Phone: 1(891) 246-618602-07-2024 History of Present illness Narrative* TODD Driver [...] spacewith 2ml of 2 % lidocaine (Code 83131 RT) Procedure, treatment alternatives, risks and benefits [...] urgent evaluation. TODD Driver documented in this encounterChildren's Mercy HospitalBikqmtmufc77-44-3626 History of Present illness Narrative* Henrry Purvis [...] 3. Obesity (BMI 30.0-34.9) documented in this encounterTri[facility] Work Phone: 1(504) 201-475311-15-2023 Instructions* Patient Instructions* Lupe Burns LPN - [...] follow up per routine documented in this encounterTri[facility] Work Phone: 1(843) 567-141911-01-2023 Progress note Author Henrry Purvis [facility] December 31, 2022 10:33amNote Date/TimeNov2022 10:25[place] [address] Cardiology Progress Note Signed Patient: Emmanuel Jiménez MR#: [id number] : 1940 Acct:[id number] Age/Sex: 82 / M Adm Date: 3 Loc: 3T Room: [address] [place] [address] Type: ADM IN Attending Dr: Katie Osborne [...] % (Auto) 61.2 Lymph % (Auto) 27.7 [place] % (Auto) 8.9 Eos % (Auto) 1.6 Baso % (Auto) 0.6 Nucleat RBC Rel Count 0.0 Neut # (Auto) 4.1 Lymph # (Auto) 1.9 [place] # (Auto) 0.6 Eos # (Auto) 0.1 Baso # (Auto) 0.0 PHA Creatinine Clear Sodium Potassium Chloride Carbon Dioxide Anion Gap BUN Creatinine Est GFR (CKD-EPI) Glucose POC Glucose 206 183 Calcium Magnesium 12/31/22 06:36 Corrected WBC Uncorrected WBC Count RBC Hgb Hct MCV MCH MCHC RDW Plt Count MPV Neut % (Auto) Lymph % (Auto) [place] % (Auto) Eos % (Auto) Baso % (Auto) Nucleat RBC Rel Count Neut # (Auto) Lymph # (Auto) [place] # (Auto) Eos # (Auto) Baso # [...] clinic as scheduled. Follow-up with his primary grounds cleaner Dr. Hugo Moser henceforth Documented By: Henrry Purvis MD 102 Signed By: <Electronically signed by MD Henrry Purvis> 12/31/22 1033 [facility] Work Phone: 1(697) 810-715810-31-2023 Progress note Author Katie Osborne [facility] December 30, 2022 2:12pmNote Date/TimeOct2022 2:12p[place] [address] Hospitalist Progress Note Signed Patient: Emmanuel Jiménez MR#: [id number] : 1940 Acct:[id number] Age/Sex: 82 / M Adm Date: 3 Loc: 3T Room: [address] [place] [address] Type: ADM IN Attending Dr: Katie Osborne MD Copies to: ~ Date of Service: 12/30/2022 Subjective Subjective Narrative: Patient was seen and evaluated at bedside this morning. surveillance monitor was reviewed, patient continued to have [...] Plan: ? Patient's baseline is unknown, at [facility] his creatinine is 1.6, today here it is 1.4 ? Patient did receive atropine at [facility], his heart rate has been improved while [...] <Electronically signed by Katie Osborne MD> 12/30/22 [facility] Work Phone: 1(620) 122-780710-30-2023 Progress note Author Henrry Purvis [facility] December 29, 2022 2:16pmNote Date/TimeOct2022 2:16pm[place] [address] Cardiology Progress Note Signed Patient: Emmanuel Jiménez MR#: [id number] : 1940 Acct:[id number] Age/Sex: 82 / M Adm Date: 3 Loc: Room: [address] [place] [address] Type: ADM IN Attending Dr: Katie Osborne [...] AV block. Intermittently he is conducting ky inl-qx-dddpykuytu. No observed manifestations of complete heart block. [...] % (Auto) 48.1 Lymph % (Auto) 41.3 [place] % (Auto) 8.4 Eos % (Auto) 1.4 Baso % (Auto) 0.8 Nucleat RBC Rel Count 0.1 Neut # (Auto) 3.6 Lymph # (Auto) 3.1 [place] # (Auto) 0.6 Eos # (Auto) 0.1 [...] MPV Neut % (Auto) Lymph % (Auto) [place] % (Auto) Eos % (Auto) Baso % (Auto) Nucleat RBC Rel Count Neut # (Auto) Lymph # (Auto) [place] # (Auto) Eos # (Auto) Baso # [...] signed by MD Henrry Purvis> 12/29/22 [address] [facility] Work Phone: 1(215) 627-209010-30-2023 Progress note Author Katie Osborne [facility] December 29, 2022 1:57pmNote Date/TimeOct2022 1:57pmMount [place] [address] Hospitalist Progress Note Signed Patient: Emmanuel Jiménez MR#: [id number] : 1940 Acct:[id number] Age/Sex: 82 / M Adm Date: 3 Loc: 3T Room: [address] [place] [address] Type: ADM IN Attending Dr: Katie Osborne MD Copies to: ~ Date of Service: 12/29/2022 Subjective Subjective Narrative: Patient was seen and evaluated at bedside this morning. surveillance monitor was reviewed, patient continued to have [...] Plan: ? Patient's baseline is unknown, at [facility] his creatinine is 1.6, today here it is 1.4 ? Patient did receive atropine at [facility], his heart rate has been improved while [...] <Electronically signed by Katie Osborne MD> 12/29/[address] [place] [address] Work Phone: 1([phone]) 734-956410-29-2023 Consult note Author Haylee Benedict [facility] December 28, 2022 7:25pmNote Date/TimeOct2022 7:22pmMount [place] [address] Cardiology Consult Note Signed Patient: Emmanuel Jiménez MR#: [id number] : 1940 Acct:[id number] Age/Sex: 82 / M Adm Date: 3 Loc: Room: [address] [place] [address] Type: ADM IN Attending Dr: Jarred Cline [...] are negative unless noted below or in [facility] Social History Smoking Status: Never [...] <Electronically signed by Haylee Benedict MD> 12/28/22 7618 [facility] Work Phone: 1([phone]) 938-796710-29-2023 History and physical note Author Jarred Cline [facility] December 28, 2022 1:36pmNote Date/TimeOct2022 1:21pmZ[place]ary [place] [id number] Hospitalist H&P Signed Patient: Emmanuel Jiménez MR#: [id number] : 1940 Acct:[id number] Age/Sex: 82 / M Adm Date: 3 Loc: Room: [address] [place] [address] Type: ADM IN Attending Dr: Jarred Cline DO Copies to: Hugo Moser Jr, DO Jarred Cline, ~ HPI DATE OF EXAMINATION: 12/28/22 CHIEF COMPLAINT: low heart rate HISTORY OF PRESENT ILLNESS: Mr Jiménez is an 82-year-old male with past medical history of diabetes and hypertension who presents hospital today with chief complaint of low heart rate. He was transferred here from [facility], he has been feeling exertional [...] to the emergency room. He went to [facility] was then transferred back here dueto there being no cardiology services at [facility]. Patient denies any cough with his shortness [...] Plan: ? Patient's baseline is unknown, at [facility] his creatinine is 1.6, today here it is 1.4 ? Likely secondary to decreased perfusion from bradycardia ? Patient did receive atropine at [facility], his heart rate has been improved while [...] <Electronically signed by Jarred Cline DO> 12/28/22 3836 [facility] Work Phone: Discharge summary Author Katie Osborne [facility] December 31, 2022 12:42pmNote Date/TimeNov2022 12:43pm[place] [address] Discharge Summary Signed Patient: Emmanuel Jiménez MR#: [id number] : 1940 Acct:[id number] Age/Sex: 82 / M Adm Date: 3 Loc: Room: [address] [place] [address]: Katie Osborne MD Copies to: [...] heart rate. He was transferred here from [facility], he has been feeling exertional [...] Sodium 137, Potassium 4.1, Chloride 106, Carbon Juygnzv04.9, Anion Gap 12.2, BUN 23, Creatinine 1.20, Est GFR (CKD- EPI) > 60.0, Glucose 175 H, Calcium 8.9, Magnesium 2.1 12/31/22 06:36: Corrected WBC 6.7, Uncorrected WBC Count 6.7, RBC 4.27, Hgb 13.0, Hct 39.1, MCV 91.5, MCH 30.5, MCHC 33.3, RDW 14.9 H, Plt Count 148 L, MPV 7.2, Neut % (Auto) 61.2, Lymph % (Auto) 27.7, [place] % (Auto) 8.9, Eos % (Auto) 1.6, Baso % (Auto) 0.6, Nucleat RBC Rel Count 0.0, Neut # (Auto) 4.1, Lymph # (Auto) 1.9, [place] # (Auto) 0.6, Eos # (Auto) 0.1, [...] with nurse for incision check in the [facility] Office on - we will call you. 2. Chest x-ray to be done the same day as your device check at [facility] 04/15/2023. 3. Pacemaker/ICD clinic appointment at [facility] on 04/15/2023 at 11:00am . 4. [...] signed by Katie Osborne MD> 12/31/22 1242 [facility] Work Phone: Evaluation note* Diagnosis Onset Date Resolution Status ZAC (acute kidney injury) acuteDiabetes mellitusacuteHTN (hypertension)acuteMobitz type 2 second degree AV blockacute [facility] Work Phone: Evaluation note* Diagnosis AV block, Mobitz II Mobitz (type) II atrioventricular block Pacemaker Cardiac pacemaker in situ Obesity (BMI 30.0-34.9) documented in this encounter [facility] Work Phone: Evaluation note* Diagnosis Acute pain of right shoulder Rotator cuff arthropathy, right Arthritis of right acromioclavicular joint documented in this encounter [facility] HealthcareEvaluation noteNo assessment information availableSheltering Arms Hospital Work Phone: Evaluation note* Diagnosis Non-ischemic cardiomyopathy (Multi)- Primary Other primary cardiomyopathies AV block, Mobitz II Mobitz (type) II atrioventricular block Pacemaker Cardiac pacemaker in situ Mixed hyperlipidemia BMI 30.0-30.9,adult documented in this encounter [facility] Work Phone: Evaluation note* Diagnosis Type 2 diabetes mell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, without long-term current use of insulin (HCC) ([facility]/HCC)- Primary Type 2 diabetes mellitus with hyperglycemia, without long-term current use of insulin ([facility]/HCC) documented in this encounter [facility] HealthcareEvaluation note* Diagnosis Type 2 diabetes mellitus without complication, unspecified whether salvage determiner insulin use (CMS/HCC)- Primary Pain due to onychomycosis of toenails of both feet documented in this encounter [facility] HealthcareEvaluation note* Diagnosis Type 2 diabetes mell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, without long-term current use of insulin (HCC) (CMS/HCC)- Primary Type 2 diabetes mellitus with hyperglycemia, without long-term current use of insulin (CMS/HCC) Type 2 diabetes mell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, without long-term current use of insulin (HCC) ([facility]) Type 2 diabetes mellitus with hyperglycemia, without long-term current use of insulin (CMS/HCC) documented in this encounter [facility] HealthcareEvaluation note* Diagnosis Type 2 diabetes mell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, without long-term current use of insulin (HCC) ([facility]/HCC)- Primary Type 2 diabetes mellitus with hyperglycemia, without long-term current use of insulin (CMS/HCC) Type 2 diabetes mell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, without long-term current use of insulin (HCC) ([facility]/HCC) Type 2 diabetes mellitus with hyperglycemia, without long-term current use of insulin ([facility]/HCC) Rotator cuff arthropathy, right- Primary Shoulder arthritis Unspecified arthropathy, shoulder region documented in this encounter [facility] HealthcareEvaluation note* Diagnosis Pacemaker- Primary Cardiac pacemaker in situ AV block, Mobitz II Mobitz (type) II atrioventricular block Mixed hyperlipidemia Paroxysmal atrial fibrillation (Multi) Atrial fibrillation Mild tricuspid regurgitation Diabetes mellitus type II, non insulin dependent (Multi) Type II or unspecified type diabetes mellitus without mention of complication, not stated as uncontrolled BMI 28.0-28.9,adult Never smoked tobacco Overweight documented in this encounter [facility] Work Phone: Evaluation note* Diagnosis Type 2 diabetes mell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, without long-term current use of insulin (HCC) ([facility]) documented in this encounter [facility] HealthcareEvaluation note* Diagnosis Paroxysmal atrial fibrillation (Multi)- [...] risk medication use documented in this encounter [facility] Work Phone: Hospital Discharge instructions Additional [...] with nurse for incision check in the [facility] Office on - 01/08/2023 at 1:30pm. 2. Chest x-ray to be done the same day as your device check at [facility] 04/15/2023. 3. Pacemaker/ICD clinic appointment at [facility] on 04/15/2023 at 11:00am . 4. Office visit with Dr. Moser. [][facility] Work Phone: Reason for referral (narrative)* Consultation (Routine) - AuthorizedSpecialtyDiagnoses / ProceduresReferred By Contact Referred To ContactCardiology Diagnoses AV block, Mobitz II Pacemaker Procedures Follow Up In Cardiology Henrry Purvis MD [address] [facility], [address] [address] Henrry Purvis MD [address], [address] [address] Referral IDStatusReasonStart DateExpiration DateVisits RequestedVisits [id number]/15/202311/ [facility] Work Phone: reason for referral (narrative)* Consultation (Routine) - AuthorizedSpecialtyDiagnoses / ProceduresReferred By Contact Referred To ContactCardiology Diagnoses AV block, Mobitz II Procedures Follow Up In Cardiology Henrry Purvis MD [address] [place] [address], [address] [address] Stephanie Brown MD [address] [place] [address], [address] [address] Referral IDStatusReasonStart DateExpiration DateVisits RequestedVisits [id number]/24/20245/ [facility] Work Phone: Rejzcz for referral (narrative)No reason for referral information availableSheltering Arms Hospital Work Phone: Summary Purpose Family History [...] Inj/Asp: R acromioclavicular Negro Brown PA [address] [facility] [address] [place] [address] Referral IDStatusReasonStart DateExpiration DateVisits RequestedVisits [id number] [id number] / Procedures Referred By ContactReferred To ContactOrthopaedic Surgery Diagnoses Rotator cuff arthropathy, right Procedures L Inj/Asp: R subacromial bursa Negro Brown PA [address] [facility] [address] [place] [address] Referral IDStatusReasonStart DateExpiration DateVisits RequestedVisits [id number]/[id number] Additional Source Comments (unrecognized sect ion and content) No Status Records FoundNo Status Records FoundNo Status Records FoundNo Status Records Found INFORMATION SOURCE (unrecogn ized section and content) DATE CREATED AUTHOR 05/25/[address] [facility] DATE CREATED AUTHOR AUTHOR'S ORGANIZ ATION 10/16/2024 [facility] DATE CREATED AUTHOR AUTHOR'S ORGANIZ ATION 10/23/2024 [facility] DATE CREATED AUTHOR AUTHOR'S ORGANIZ ATION 11/15/[address] [facility] Plan Rep Teams (unrecognized sec tion and content) Team [...] MDOther ProviderActiveDonna Thang Salas APRNOther Provider ActiveNatacha aPdron MDOther ProviderActiveMohammed Feliciano Douglas MDOther ProviderActiveJordan Bolanos MDOther ProviderActiveCarol Josy Woodward FRINGE WEAVER-BCOther ProviderActiveLauren Steiner MDOther ProviderActive Team Status: Inactive Member Role Status Dates Hugo Moser JR DO Primary Care Provider Active Jovanna Ramirez ProviderActiveTeam MemberRelationship SpecialtyStart DateEnd Date Hugo Moser DO [facility] [place] [address] PCP - GeneralInternal Vbgraxuo56/1/23Team MemberRelationshipSpecialtyStart Date End Date Hugo Moser MD [address] [place] [address] PCP - GeneralInternal Medicine04/08/23 Team Status: Inactive Member Role Status Dates Hugo Moser JR DO Primary Care Provider Active Start: April 15, 2023 End: April 15, 2023Damir Ramirezing ProviderActive Start: April 15, 2023 End: April 15Asia Barth ProviderActiveStart: April 15, 2023 End: April 15, 2023Team MemberRelationshipSpecialtyStart DateEnd Date Hugo Moser DO PCP - GeneralInternal Umltjpwq01/1/23 Team Status: Inactive Member Role Status Dates Hugo Moser JR DO Primary Care Provider Active Start: October 16, 2023 End: October 16, 2023Henrry Purvis MDAttending ProviderActiveStart: October 16, 2023 End: October 16, 2023Team MemberRelationshipSpecialtyStart DateEnd Date Hugo Moser MD [facility] [place], [place] [id number] PCP - GeneralInternal Medicine04/08/23Team MemberRelationshipSpecialtyStart Date End Date Hugo Moser MD [address] [place] [address] PCP - GeneralInternal Medicine04/08/23Team MemberRelationshipSpecialtyStart Date End Date Hugo Moser MD [address] [place] [address] PCP - GeneralInternal Medicine04/08/23Team MemberRelationshipSpecialtyStart Date End Date Hugo Moser MD [address] [place] [address] PCP - GeneralInternal Medicine04/08/23Team MemberRelationshipSpecialtyStart Date End Date Hugo Moser MD [facility] [place] [address] PCP - GeneralInternal Medicine04/08/23Team MemberRelationshipSpecialtyStart Date End Date Hugo Moser MD [address] [facility] [address] PCP - GeneralInternal Medicine04/08/23Team MemberRelationshipSpecialtyStart Date End Date Hugo Moser MD [address] [place] [address] PCP - GeneralInternal Medicine04/08/23 MemberRelationshipSpecialtyStart Date End Date Hugo Moser MD [address] [facility] [address] PCP - GeneralInternal Medicine04/08/23Te MemberRelationshipSpecialtyStart Date End Date Hugo Moser MD [address] [place] [address] PCP - GeneralInternal Medicine04/08/23Te MemberRelationshipSpecialtyStart Date End Date Hugo Moser DO PCP - GeneralInternal Adcnkiwn49/1/23 Team Status: Active Member Role Status Dates [...] MemberRelationshipSpecialtyStart DateEnd Date Hugo Moser MD [address] [place] [address] PCP - GeneralInternal Medicine04/08/23Team MemberRelationshipSpecialtyStart Date End Date Hugo Moser MD [facility] [place] [address] PCP - GeneralInternal Medicine04/08/23Team MemberRelationshipSpecialtyStart Date End Date Hugo Moser MD [facility] [place] [address] PCP - GeneralInternal Medicine04/08/23Team MemberRelationshipSpecialtyStart Date End Date Hugo Moser MD [facility] [place] [address] PCP - GeneralInternal Medicine04/08/23 Team Status: Active Member Role Status Dates Hugo Moser JR DO Primary Care Provider Active Start: October 18, 2024 Stephanie Brown MDOther ProviderActiveStart: October 18, 2024 Cristian Teran MDAttending ProviderActiveStart: October 18, 2024 Team MemberRelationshipSpecialtyStart DateEnd Date Hugo Moser DO [facility] [place] [address] PCP - GeneralInternal Medicine11/09/24 Reason for Visit (unrecogniz ed section and content) ReasonCommentsFollow-upSwelling and pain at pacemaker site.Placed 2 weeks ago. SpecialtyDiagnoses / ProceduresReferred By ContactReferred To ContactCardiology Diagnoses AV block, Mobitz II Pacemaker Procedures Follow Up In Cardiology Henrry Purvis MD [address] [facility], [place] [address] Referral IDStatusReasonStart DateExpiration DateVisits RequestedVisits [id number]/15/202311/14/[id number] CommentsFollow-up6 monthSpecialtyDiagnoses / ProceduresReferred By Contact Referred To ContactCardiology Diagnoses AV block, Mobitz II Pacemaker Procedures Follow Up In Cardiology Henrry Purvis MD [address] [place] [address], [place] [address] Henrry Purvis MD [address] [place] [address], [place] [address] Referral IDStatusReasonStart DateExpiration DateVisits RequestedVisits [id number]/15/202311/14/[id number]rrzi CommentsDM Foot CareDm nail defwHopvfgCwzanddnBgfscg-tnDibuzzXnkuogitIyvisc-is8k SpecialtyDiagnoses / ProceduresReferred By ContactReferred To ContactCardiology Diagnoses AV block, Mobitz II Procedures Follow Up In Cardiology Henrry Purvis MD Ibrahim, Hassan M, MD [address] [place] [address], [place] [address] Phone: tel: fax: Referral IDStatusReasonStart DateExpiration DateVisits RequestedVisits [id number]/24/20245/186648KjzbkqTuapp DateComments Appointment Xhhqmfmpiqdj07/14/2025ReasonOnset DateCommentsAppointment Nyymaxkaoxyp77/19/2025ReasonOnset DateCommentsBlood Sugar Gezblef2908/02/2024 ReasonCommentsFollow-up6 month follow up for PacemakerSpecialtyDiagnoses / ProceduresReferred By ContactReferred To ContactCardiology Diagnoses Non-ischemic cardiomyopathy (Multi) Procedures Follow Up In Cardiology Stephanie Brown MD [address] [facility] [address], [address] [address] Phone: tel: fax: Stephanie Brown MD [address] [facility], [facility] [address] [place] [address] Phone: tel: fax: Referral IDStatusReasonStart DateExpiration DateVisits RequestedVisits [id number]/8/20251/8/202611 Goals (unrecognized section and content) Goals may [...] BE BASED ON THE PRIMARY CLINICAL RECORDS. [facility]. provides no warranty or guarantee of the accuracy or completeness of information in this document.
--- NOTE | 2025-02-08 08:25 | XR_ITS ---
The [address] [address] Patient Name: JOSE MIGUEL ANDERSON MRN: [id number] date: 1940 Sex: M Assigned Patient Location: [facility] Current Patient Location: [facility] Accession/Order Number: [id number] Exam Date: 02/08/2025 09:15 Report Date: 02/08/2025 11:29 At the request of: OZZY PHILLIPS MD Procedure: XR chest 2V PA AND LATERAL CHEST: CLINICAL HISTORY: Preoperative clearance COMPARISON: 05/17/[address] 11/28/2020 A left-sided pacemaker is again visualized. There is slight elevation left hemidiaphragm with underlying air-filled viscus. Calcified pleural plaque is again seen. Mild atelectasis and/or scarring is present at the lung bases. There is no developing consolidation, effusion or pneumothorax. The cardiac, hilar and mediastinal silhouettes are similar. There is no vascular congestion. The visualized bony structures are osteopenic. Degenerative changes are noted spine. XR/XR chest 2V IMPRESSION: MILD CHRONIC CHANGES. NO ACUTE CARDIOPULMONARY ABNORMALITY. Impression dictated by: Niki Scott M.D. 02/08/2025 11:29 AM Dictation Location: [place] [address] Electronically authenticated by: [id number] Y Date: 02/08/2025 11:29
--- NOTE | 2025-02-08 08:25 | ECG_ITS ---
The [facility] Test Date: 2025-02-08 Pat Name: JOSE MIGUEL ANDERSON Department: Room: - Gender: Male [employer]: : 1940 Requested By: OZZY PHILLIPS Order Number: [id number] Reading MD: GINI ESPINAL M.D. Measurements Intervals [place] Rate: 69 P: [place]: QRS: -63 QRSD: 193 T: 101 QT: 453 QTc: 489 Interpretive Statements Atrial flutter ELECTRONIC VENTRICULAR PACEMAKER ABNORMAL ECG Compared to ECG 12/28/2022 00:04:17 Atrial flutter is now present Electronic ventricular pacemaker is now present Electronically Signed On 02-08-2025 14:19:27 EST by GINI ESPINAL M.D.
[2025-02-08 09:44] LABS: Hematocrit 41.9 % (42.0-54.0); Hemoglobin 13.6 g/dL (14.0-18.0); Immature Granulocytes Abs Auto 0.05 10^3/uL (0.00-0.03); Immature Granulocytes Pct Auto 0.6 % (0.0-0.5); Lymphocytes Absolute Auto 2.2 10^3/uL (1.2-3.8); Mean Corpuscular HGB Conc 32.5 g/dL (29.9-35.2); Mean Corpuscular Hemoglobin 30.0 pg (25.9-34.0); Mean Corpuscular Volume 92.3 fL (80.0-94.0); Platelet Count 199 10^3/uL (150-450); Red Blood Count 4.54 10^6/uL (4.70-6.10); White Blood Count 7.9 10^3/uL (4.0-11.0)
[2025-02-08 10:30] LABS: Anion Gap 14.3; Blood Urea Nitrogen 28.0 mg/dL (7.0-18.0); Calcium 9.2 mg/dL (8.5-10.1); Carbon Dioxide 23.3 mmol/L (21.0-32.0); Chloride 104 mmol/L (98-107); Estimated GFR (African America >60 (>=60 mL/min/1.73m^2); Estimated GFR (Non-African Ame 50 (>=60 mL/min/1.73m^2); Glucose 302 mg/dL (74-106); Potassium 4.6 mmol/L (3.5-5.1); Sodium 137 mmol/L (136-145)
[2025-02-08 11:23] LABS: Partial Thromboplastin Time 29.5 sec (22.3-36.2)
[2025-02-08 11:29] LABS: INR 1.09; Prothrombin Time 11.4 sec (9.0-11.6)
== END 2025-02-08 07:52 | disposition home or self-care (01) ==
LOC: PST 07:53
PROVIDERS: PCP Internal Medicine; Visit Provider Urology
DX: Z01.810 Encounter for preprocedural cardiovascular examination (principal); Z01.812 Encounter for preprocedural laboratory examination; D49.4 Neoplasm of unspecified behavior of bladder; R31.0 Gross hematuria
CPT/HCPCS: 36415; 71046; 80048; 85025; 85610; 85730; 93005

== ENCOUNTER 2025-02-09 10:26 | Day surgery (SDC) | payer MEDICARE, SELFPAY ==
[2025-02-08 08:37] VITALS: BP 136/75; PULSE 69; TEMP 36.2; O2SAT 97; BMI 31.2
[2025-02-09] VITALS (12 sets, daily range): BP systolic 96–139; BP diastolic 55–72; PULSE 69–78; TEMP 36.1–36.3; O2SAT 96–99; BMI 31.2
--- OUTSIDE RECORDS SUMMARY | 2025-02-09 10:33 | XMS_ITS | CCD ---
Author Organization [facility] Providers Care Pin Or Clip Fastener Name Role Phone VINODONE, DR ROGERS Admitting [...] Provider MD Jordan Bolanos Other Provider Crissy [facility] Nikia Ferris Other Provider [phone] MD Lauren Steiner Other Provider [phone] [...] Provider MD Jordan Bolanos Other Provider Crissy [facility] Nikia Ferris Other Provider MD Lauren Steiner Other Provider MD Henrry Purvis Attending Provider Hugo Moser DO Primary Care Provider Hugo Moser MD Primary Care Provider JR Hugo Moser Primary Care Provider MD Henrry Purvis Referring Provider BHAVIN Gregorio Attending Provider Hugo Moser DO Primary Care Provider JR Hugo Moser Primary Care Provider [phone] MD Henrry Purvis Attending Provider Hugo Moser JR Primary Care Provider Henrry Purvis MD Attending Provider VEDA ROME Attending Unavailable VEDA ROME Attending Unavailable VEDA ROME Attending Unavailable VEDA ROME Attending Unavailable HUGO MOSER Referring Unavailable KENNEDY CALDERON Attending Unavailable VEDA ROME Attending Unavailable JR. CÁRDENAS GEORGE C Attending Unavaila Hugo Pena JR Primary Care Provider Stephanie Brown MD Other Provider [phone] Cristian Teran MD Attending Provider Stephanie Brown [...] oral tablet (20 sources)alpha-Glucosidase InhibitorStart: 12-28-2022 End: 62-00-4789arcl 1 tablet by mouth in the morningacarbose (Precose) 100 MG tablet Take 100 mg by mouth in the morning and 100 mg before bedtime. 06/16/2024 ActiveStart: 87-09-3907lyaa 1 tablet by mouth three times dailyacarbose (Precose) 100 mg tablet Take 1 tablet (100 mg) by mouth 3 times daily (morning, midday, late afternoon). 09/12/2022 Active End: 65-87-3304dvnatzbf (Precose) 100 MG tablet 2 (two) times a day 12/03/2023 Discontinuedapixaban 5 mg oral tablet (1 source)Factor Xa InhibitorStart: 10-24-2024 End: 43-75-6261debz 1 tablet by mouth twice dailyapixaban (Eliquis) 5 mg tablet Indications: Atrial fibrillation, unspecified type (Multi) Take 1 tablet (5 mg) by mouth 2 times a day. 180 tablet 1 10/24/2024 10/24/2025 Activeclindamycin 300 mg oral capsule (7 sources)Lincosamide AntibacterialStart: 82-27-4694eucn 2 capsules by mouth three times dailyStart: 67-14-9725ahrv 600 mg by mouth three times daily Clindamycin Hcl Active 600 MG PO Three times daily 12 December 31, 2022 12:00amDocusate (14 sources)Docusate Calcium (STOOL SOFTENER PO) Take by mouth Active empagliflozin 25 mg oral tablet (20 sources)Sodium-Glucose Cotransporter 2 InhibitorStart: 83-81-0908kyjp 1 tablet by mouth once daily before mealtimeJardiance 25 mg Take 1 tablet (25 mg) by mouth once daily in the morning. Take before meals. 11/10/2022 Active End: 91-25-9907cxml 12.5 mg by mouth in the morningJardiance 25 MG Take 12.5 mg by mouth in the morning. 12/03/2023 Discontinuedezetimibe 10 mg oral tablet (20 sources)Dietary Cholesterol Absorption InhibitorStart: 10-98-0505kpim 0.5 tablet by mouth once dailyezetimibe (Zetia) 10 mg tablet Take 0.5 tablets (5 mg) by mouth once daily. 12/16/2022 ActiveStart: 33-35-4395otmx 1 tablet by mouth once dailytake 5 mg by mouth in the morningezetimibe (Zetia) 10 MG tablet Take 5 mg by mouth in the morning. Activefamotidine 40 mg oral tablet (2 sources)Histamine-2 Receptor AntagonistStart: 96-63-7616dlvi 1 tablet by mouth at bedtimefamotidine (Pepcid) [...] pen injector (9 sources)Insulin AnalogStart: 05-12-2024 End: 57-69-3437ehepuyc degludec (Tresiba FlexTouch) 100 UNIT/ML injection Indications: Type 2 diabetes mellitus with hyperglycemia, without long-term current use of insulin ([facility]) Inject 12 Units under the skin Daily 15 mL 3 05/12/2024 07/19/2024 DiscontinuedStart: 52-08-2609fsfwzli degludec (Tresiba FlexTouch) 100 UNIT/ML injection Indications: Type 2 diabetes mellitus with hyperglycemia, without long-term current use of insulin ([facility]) Inject 12 Units under the skin Daily 15 mL 3 01/18/2024 Active3 ml insulin lispro 25 unt/ml / insulin lispro protamine, human 75 unt/ml pen injector (8 sources)Insulin AnalogStart: 11-01-2024 End: 36-22-1385baohpcc lispro protamin-lispro (HumaLOG Mix 75-25) 100 unit/mL (75-25) pen 30 units breakfast and 15 units dinner 11/01/2024 11/01/2025 Active Start: 07-19-2024 End: 13-92-9567zrlzouh lispro protamine-insulin lispro (HumaLOG MIX 75/25 KWIKPEN) (75-25) 100 UNIT/ML injection Indications: Type 2 diabetes mell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, with long-term current use of insulin ([facility]) 30 units breakfast and 15 units dinner 15 mL 11 10/14/2024 10/14/2025 ActivemetFORMIN hydrochloride 500 mg oral tablet (20 sources)BiguanideStart: 52-88-5407ffvMAIPVL (Glucophage) 500 mg tablet Take 1 tablet (500 mg) by mouth. Take one tablet by mouth at noon and two tablets by mouth at supper 06/25/2023 ActiveStart: 06-25-2023 End: 04-39-9133qihl 2 tablets by mouth in the morningmetFORMIN (Glucophage) 500 MG tablet Take 2 tablets (1,000 mg) by mouth in the morning and 2 tablets (1,000 mg) in the evening. Take with meals. 360 tablet 3 12/03/2023 Jgjcaf06 hr metFORMIN hydrochloride 1000 mg / SITagliptin 100 mg extended release oral tablet (12 sources)Biguanide, Dipeptidyl Peptidase 4 InhibitorStart: 10-24-2023 End: 56-99-1311vith 1 tablet by mouth once daily End: 99-54-0348eure 1 tablet by mouth every twenty-four hours in the morning Janumet XR 100-1000 MG per 24 hr tablet Take 1 tablet by mouth in the morning. 12/01/2023 DiscontinuedOzempic 1 mg/dose (4 mg/3 mL) pen injector (3 sources)Start: 05-18-2023 End: 37-01-0661gffpzj 1 mg by subcutaneous injection every weekOzempic 1 mg/dose (4 mg/3 mL) pen injector Inject 1 mg under the skin 1 (one) time per week. 05/18/2023 11/09/2024 Discontinued (Therapy completed)Start: 93-31-9571slzfre 1 mg by subcutaneous injection every weekOzempic 1 mg/dose (4 mg/3 mL) pen injector Inject 1 mg under the skin 1 (one) time per week. 05/18/2023 Activepen needle 33G x 4 mm misc (14 sources)Start: 39-50-5412aqs needle 33G x 4 mm misc Indications: Type 2 diabetes mell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, without long-term current use of insulin ([facility]) Injections subcutaneous daily 100 each 3 01/18/2024 ActiveStart: 47-06-5612osm needle 33G x 4 mm misc Indications: Type 2 diabetes mell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, without long-term current use of insulin (HCC) ([facility]) Injections subcutaneous daily 100 each 3 01/18/2024 Activerivaroxaban 20 mg oral tablet (12 sources)Factor Xa InhibitorStart: 12-08-2022 End: 70-22-7508htamctkkmozb calcium 40 mg oral tablet (20 sources)HMG-CoA Reductase InhibitorStart: 97-30-1976jgbh 1 tablet by mouth once dailyrosuvastatin (Crestor) 40 mg tablet Take 1 tablet (40 mg) by mouth once daily. 11/11/2022 Activesacubitril 24 mg / valsartan 26 mg oral tablet (15 sources)Angiotensin 2 Receptor BlockerStart: 12-28-2022 End: 92-12-2838pxhg 1 tablet by mouth once daily End: 18-94-0415Ychjabxtou-Valsartan (ENTRESTO PO) Take by mouth 12/01/2023 DiscontinuedSacubitril-Valsartan (ENTRESTO PO) Take by mouth 0 Active Completed/Discontinued Medications MedicationDrug Class(es)DatesSig (Normalized)Sig (Original)5 ml bupivacaine hydrochloride 5 mg/ml injection (2 sources)Amide Local AnestheticStart: 04-08-2023 End: 13-67-3535bufbpgfcnok PF (Marcaine) 0.5 % injection 0.5 mLdoxycycline monohydrate 100 mg oral capsule (2 sources)Tetracycline-class DrugStart: 05-12-2022 End: 66-93-6556jlts 1 capsule by mouth twice dailydoxycycline (Monodox) 100 mg capsule Take 1 capsule (100 mg) by mouth 2 times a day. 05/12/2022 07/24/2023 Discontinued (Therapy completed)3 ml insulin glargine 100 unt/ml pen injector (2 sources)Insulin AnalogStart: 01-18-2024 End: 44-78-8778dqhfxjr glargine (Lantus SoloStar) 100 UNIT/ML pen Indications: Type 2 diabetes mellitus with ezamz3m chronic kidney disease, without long-term current use of insulin (HCC) ([facility]) Inject 15 Unitsunder the skin Daily 15 mL 3 01/18/2024 01/18/2024 Discontinuedlosartan potassium 25 mg oral tablet (1 source)Angiotensin 2 Receptor BlockerStart: 06-12-2022 End: 38-75-3864hrav 1 tablet by mouth once daily before mealtimelosartan (Cozaar) 25 mg tablet Take 1 tablet (25 mg) by mouth once daily in the morning. Take before meals. 0 06/12/2022 01/14/2023 Discontinued (Discontinued by another clinician)meloxicam 15 mg oral tablet (2 sources)Nonsteroidal Anti-inflammatory Drug End: 98-75-0727vcepaqwdx (Mobic) 15 MG tablet 1 (one) time each day at the same time 12/03/2023 Discontinued1 ml methylPREDNISolone acetate 40 mg/ml injection (2 sources)CorticosteroidStart: 04-08-2023 End: 98-37-5968gknzdnYYAZTQVndato acetate (DEPO-Medrol) injection 40 mgOzempic, 1 MG/DOSE, 4 MG/3ML solution pen-injector (2 sources)Start: 05-18-2023 End: 74-06-8397jvkquq 1 mg by subcutaneous injection every weekOzempic, 1 MG/DOSE, 4 MG/3ML solution pen-injector Inject 1 mg under the skin 1 (one) time per week05/18/2023 12/03/2023 DiscontinuedSemaglutide-Weight Management 0.5 MG/0.5ML solution auto-injector (2 sources) End: 43-53-3305Eqocsfvrnag-Weight Management 0.5 MG/0.5ML solution auto-injector Inject 0.6 mg under the skin 12/03/2023 Discontinued Problems Active Problems Problem ClassificationProblemDateDocumented DateEpisodic/ChronicAcute and unspecified renal failure (9 sources)Acute renal failure syndrome; Translations: [Acute kidney failure, unspecified]25-03-3015HcbxbwybQyftadc on above:Problem List clean-up per request of Phys. EHR CmteCardiac dysrhythmias (4 sources)Paroxysmal atrial fibrillation; Translations: [Paroxysmal atrial fibrillation]Onset: 195891-58-3574PycrlnvCjiorzb dysrhythmias (14 sources)Bradycardia; Translations: [Bradycardia, unspecified]12-31-2022 EpisodicComment on above:Problem List clean-up per request of Phys. EHR Cmte Conduction disorders (20 sources)Mobitz type II atrioventricular block; Translations: [Atrioventricular block, second degree]Onset: 431546-62-1890NrlgcujKfomedx on above:Problem List clean-up per request of Phys. EHR CmteCongestive heart failure; nonhypertensive (4 sources)Chronic diastolic (congestive) heart failure; Translations: [CHRONIC DIASTOLIC HEART FAILURE]Onset: 40-12-5931QxnzdtqXhojchfm mellitus with complications (20 sources)Type 2 diabetes mellitus with hyperglycemia; Translations: [Type 2 diabetes mellitus with diabetic chronic kidney disease]Onset: 10-09-2021 Resolved: 929219-18-9990NmcycodSuaochzi mellitus without complication (20 sources)Diabetes mellitus; Translations: [Type 2 diabetes mellitus without complications]Onset: 744567-44-6069RyhkqekZmyanba on above:Problem List clean-up per request of Phys. EHR CmteDisorders of lipid metabolism (20 sources)Mixed hyperlipidemia; Translations: [Mixed hyperlipidemia]Onset: 200100-85-9906QthnkmzCqwnqnhfr hypertension (20 sources)Hypertensive disorder; Translations: [Essential (primary) hypertension]Onset: 949949-70-3230JyinzffRinnrhv on above:Problem List clean-up per request of Phys. EHR CmteHeart valve disorders (4 sources)Rheumatic tricuspid insufficiency; Translations: [Diseases of tricuspid valve]Onset: 239713-02-9726LskobbjXagfmyhnnhxp with complications and secondary hypertension (1 source)Hypertensive chronic kidney disease with stage 1 through stage 4 chronic kidney disease, or unspecified chronic kidney disease; Translations: [HTN CKD W/STAGE 1-4 CKD/UNS CKD]Onset: 64-40-8613VsqemesYjevbtt (2 sources)Pain in toe; Translations: [Tinea unguium]66-25-8539Spoathpw Osteoarthritis (20 sources)Arthritis of right acromioclavicular joint; Translations: [Primary osteoarthritis, right shoulder]Onset: 160887-78-2087VqgbxfmPpuks aftercare (1 source)Other halfway (current) drug therapy; Translations: [OTH SUSTAINABILITY COORDINATOR 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 THERAPY]Onset: 25-71-7010SsyshcfsXgoqb aftercare (1 source)Taking high risk medication; Translations: [Other long term care phlebotomist (current) drug therapy]71-56-2069VyencmveMsyfb circulatory disease (1 source)History of cardiomyopathy; Translations: [Personal history of other diseases of the circulatory system]91-09-3234NbdnzngbUijqn non-traumatic joint disorders (3 sources)Rotator cuff arthropathy of right shoulder; Translations: [Other specific arthropathies, not elsewhere classified, right shoulder]04-08-2023 ChronicOther non-traumatic joint disorders (1 source)Pain in right shoulder; Translations: [Pain in joint, shoulder region] 10-30-1232KmcjrdeeMjqcl nutritional; endocrine; and metabolic disorders (6 sources)Obese class I; Translations: [Obesity, unspecified]Onset: 01-14-2023 43-07-2681IggwqhoTyicm nutritional; endocrine; and metabolic disorders (4 sources)Body mass index 30+ - obesity; Translations: [Body mass index (BMI) 30.0-30.9, adult]Onset: 983235-44-6280TdxypdfRpjho nutritional; endocrine; and metabolic disorders (1 source)Overweight; Translations: [Overweight]38-00-4644RsiyglhzNcmk-; endo-; and myocarditis; cardiomyopathy (except that caused by tuberculosis or sexually transmitted disease) (20 sources)Cardiomyopathy; Translations: [Other cardiomyopathies]Onset: 029249-98-7390VjhsxwgMbmyyarz codes; unclassified (4 sources)Never smoked tobacco; Translations: [Other specified health status] Onset: 073535-84-8460MpklyzltZzzxalzh codes; unclassified (2 sources)Other specified health status; Translations: [Other specified health status]Onset: 64-77-4119LkzrrbgzEanlngpvlcay (1 source)CHRN KIDNEY DISEASE STG 3 UNSP; Translations: [CHRN KIDNEY DISEASE STG 3 UNSP]Onset: 34-61-1424Yeyhrfmrpgae (1 source)Obesity, class 1; Translations: [Obesity, class 1]Onset: 01-14-2023 Past or Other Problems Problem ClassificationProblemDateDocumented DateEpisodic/ChronicOther nutritional; endocrine; and metabolic disorders (3 sources)Overweight in adulthood with body mass index of 25 or more but less than 30; Translations: [Body mass index (BMI) 28.0-28.9, adult]Onset: 03-09-2024 76-49-4836SfhjaahqIdmlk nutritional; endocrine; and metabolic disorders (2 sources)Body mass index (BMI) 28.0-28.9, adult; Translations: [Body mass index (BMI) 28.0-28.9, adult]Onset: 29-20-2088ShovdkojMsgitmlka; thrombophlebitis and thromboembolism (20 sources)Deep venous thrombosis; Translations: [Acute embolism and thrombosis of unspecified deep veins of unspecified lower extremity]Onset: 01-14-2023 99-14-0518KqppatwyIxrzzxfrhxij (4 sources)Onset: 01-14-2023 Resolved: 904110-23-1979Etlcruawnnae (1 source)Obesity, class 1; Translations: [Obesity, class 1]Onset: 11-09-2024 Results Test NameValueInterpretationReference PesnlGkrltgdgBtB4h (Bld) [Mass fraction]on 94-47-7803Rkvmofbrkbzqny and review of laboratory resultsBetsy [facility] HealthcareLaboratory - Hematology and Cell countson 95-80-2798EtA7j (Bld) [Mass fraction]8.7 %[facility] CenterHbA1c (Bld) [Mass fraction]on 07-19-2024 Interpretation and review of laboratory resultsAbAtrium Health Wake [facility]kes [facility] CenterLaboratory - Hematology and Cell countson 45-87-8641EkT6p (Bld) [Mass fraction]9 %[facility] CenterHbA1c (Bld) [Mass fraction]on 04-18-2024 Interpretation and review of laboratory resultsHayward Area [facility] - HaywardLaboratory - Hematology and Cell countson 09-72-0749XmM3k (Bld) [Mass fraction]8.1 %[facility] CenterECG 12 Leadon 21-11-8644WRE reveals atrial sensing and ventricular pacing rhythm, abnormal ECGCPACSGalion Hospital Work Phone: HbA1c (Bld) [Mass fraction]on 53-67-8122Sstqbwvhrjnnsn and review of laboratory resultsHayward Area Memorial Hospital - HaywardLaboratory - Hematology and Cell countson 53-88-4638KaI8r (Bld) [Mass fraction]10.4 %[facility] HealthcareL Inj/Asp: R subacromial bursaon 99-66-7341Uqgditn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 Pt given injection Right Shoulder SA space with 2ml of 2 % lidocaine (Code 73247 RT) Procedure, treatment alternatives, risks and benefits explained, specific risks discussed. Consent was given by the patient. [facility] Inj/Asp: R acromioclavicularon 61-98-3762OarstlkTODD Driver 04/08/2023 1:57 PM Mickey Inj/Asp: R [...] and draped in the usual sterile fashion. FirstHealthBasophils Auto (Bld) [#/Vol]Ordered By: Jarred Cline on 11-31-1138Naphjiqmc (Bld) [#/Vol]0.0 10*3/uL0.0-0.2FMiami Valley HospitalBasophils/100 WBC Auto (Bld)Ordered By: Jarred Cline on 12-31-2022 Basophils/100 WBC (Bld)0.6 %.[facility] CenterCalcium [Mass/volume] in Serum or PlasmaOrdered By: Jarred Cline on 20-05-8738Mvjypyj [Mass/Vol]8.9 mg/dL8.6-10.3FMiami Valley HospitalCarbon dioxide, total [Moles/volume] in Serum or PlasmaOrdered By: Jarred Cline on 18-05-5724VI9 [Moles/Vol]22.9 mmol/L21.0-31.0[facility] CenterChloride [Moles/volume] in Serum or PlasmaOrdered By: Jarred Cline on 74-26-5699Ncrrcqqs [Moles/Vol]106 mmol/S64-360FudtlqskcWexner Medical CenterCreatinine [Mass/volume] in Serum or PlasmaOrdered By: Jarred Cline on 03-30-3524Vdtwjqdcgb [Mass/Vol]1.20 mg/dL0.70-1.30[facility] CenterEosinophils Auto (Bld) [#/Vol]Ordered By: Jarred Cline on 06-36-8536Sngukykvzfn (Bld) [#/Vol]0.1 10*3/uL0.0-0.45[facility] CenterEosinophils/100 WBC Auto (Bld) Ordered By: Jarred Cline on 82-64-5557Dnerkucfdeb/100 WBC (Bld)1.6 %.[facility] CenterErythrocyte distribution width Auto (RBC) [Ratio]Ordered By: Jarred Cline on 22-64-9580Xfodacgmasi distribution width (RBC) [Ratio]14.9 % 12.0-14.8[facility] CenterGlucose [Mass/volume] in Serum or PlasmaOrdered By: Jarred Cline on 64-61-9274Zyeionr [Mass/Vol]175 mg/lL30-224 [facility] CenterComment on above:ADA recommended reference rangeRandom Glucose Reference Range is dependent on time and content of last meal. Glucose of more than 200 mg/dL in a nonstressed, ambulatory subject supports the diagnosisof Diabetes Mellitus.Hematocrit Auto (Bld) [Volume fraction]Ordered By: Jarred Cline on 96-13-5239Qkcrsinthm (Bld) [Volume fraction]39.1 %38.8-50.0[facility] CenterHemoglobin [Mass/volume] in BloodOrdered By: Jarred Cline on 19-29-7123Hldwycoqtx (Bld) [Mass/Vol]13.0 g/dL13.0-17.0[facility] CenterLeukocytes [#/volume] corrected for nucleated erythrocytes in Blood by Automated coun Ordered By: Jarred Cline on 46-83-7040NJZ corrected for nucl RBC Auto (Bld) [#/Vol]6.7 10*3/uL4.1-10.5FMiami Valley HospitalLymphocytes Auto (Bld) [#/Vol]Ordered By: Jarred Cline on 67-36-1711Hddgrcffcbj (Bld) [#/Vol]1.9 10*3/uL1.00-4.8[facility] CenterLymphocytes/100 WBC Auto (Bld) Ordered By: Jarred Cline on 39-14-1190Uhkjeauaamy/100 WBC (Bld)27.7 %.[facility] HospitalH Auto (RBC) [Entitic mass]Ordered By: Jarred Cline on 49-11-5833HXN (RBC) [Entitic mass]30.5 pg27.5-35.2FMiami Valley HospitalMCHC Auto (RBC) [Mass/Vol]Ordered By: Jarred Cline on 08-73-6313CSWZ (RBC) [Mass/Vol]33.3 g/dL32.5-35.6FMiami Valley HospitalMCV Auto (RBC) [Entitic vol]Ordered By: Jarred Cline on 89-67-9691FFE (RBC) [Entitic vol]91.5 fL83.5-101[facility] CenterMagnesium [Mass/volume] in Serum or PlasmaOrdered By: Jarred Cline on 42-59-1507Lizefibwl [Mass/Vol]2.1 mg/dL1.9-2.7 [facility] CenterMonocytes Auto (Bld) [#/Vol]Ordered By: Jarred Cline on 75-11-0766Ungqilsdw (Bld) [#/Vol]0.6 10*3/uL0.0-0.8[facility] CenterMonocytes/100 WBC Auto (Bld)Ordered By: Jarred Cline on 12-31-2022 Monocytes/100 WBC (Bld)8.9 %.[facility] CenterNeutrophils Auto (Bld) [#/Vol]Ordered By: Jarred Cline on 09-70-3322Dgwxswhayqw (Bld) [#/Vol]4.1 10*3/uL1.8-7.7FMiami Valley HospitalNeutrophils/100 WBC Auto (Bld) Ordered By: Jarred Cline on 42-33-3879Aybngjraxeq/100 WBC (Bld)61.2 %.[facility] CenterNo Panel InformationOrdered By: Jarred Cline on 29-83-8297Gvibsriuv GFR (CKD-EPI)> 60.0 mL/MinWexner Medical Center Pharmacy Creatinine Clearance (Chem48.99[facility] Nucleated erythrocytes [Presence] in Blood by Automated countOrdered By: Jarred Cline on 76-94-2152Kvmldzmaf RBC Auto Ql (Bld)0.0 /100{WBC}0-0.5FMiami Valley HospitalPlatelet mean volume Auto (Bld) [Entitic vol]Ordered By: Jarred Cline on 33-73-6299Diovsepe mean volume (Bld) [Entitic vol]7.2 fL6.6-10.1 [facility] CenterPlatelets Auto (Bld) [#/Vol]Ordered By: Jarred Cline on 10-65-0102Pvcrtdsqd (Bld) [#/Vol]148 10*3/yA450-956EqjwjfgyiWexner Medical CenterPotassium [Moles/volume] in Serum or PlasmaOrdered By: Jarred Cline on 22-79-7867Gqimrrifo [Moles/Vol]4.1 mmol/L3.5-5.1FMiami Valley HospitalRBC Auto (Bld) [#/Vol]Ordered By: Jarred Cline on 49-01-5401CVZ (Bld) [#/Vol]4.27 10*6/uL3.90-5.60[facility] Centererum or plasma anion gap determinationOrdered By: Jarred Cline on 29-01-8693Qycch gap [Moles/Vol]12.2 mmol/L6.0-15.0[facility] Centerodium [Moles/volume] in Serum or PlasmaOrdered By: Jarred Cline on 28-90-3225Eedllj [Moles/Vol]137 mmol/I428-595PtsglqroiWexner Medical CenterUrea nitrogen [Mass/volume] in Serum or PlasmaOrdered By: Jarred Cline on 11-52-4822Zxcg nitrogen [Mass/Vol]23 mg/dL7-25[facility] CenterWBC Auto (Bld) [#/Vol]Ordered By: Jarred Cline on 87-71-2726RSA (Bld) [#/Vol]6.7 10*3/uL 4.1-10.5FMiami Valley HospitalActivated partial thromboplastin time (aPTT) in platelet poor plasma by coagulation aOrdered By: Henrry Purvis on 15-28-1897dCUA Coag (PPP) [Time]30.2 s25.1-36.5FMiami Valley Hospital Comment on above:A hematocrit value greater than 55% may lead to inaccurate results in coagulation testing. Patientshaving hematocrit values >55% require a special collection tube for coagulation studies. Please contact the laboratory at [phone] for redraw instructions.Glucose Glucometer (BldC) [Mass/Vol] Ordered By: Katie Osborne on 82-59-0362Inryoha [Mass/Vol]183 mg/dLWexner Medical CenterComment on above:Random Glucose Reference Range is dependent on time and content of last meal. Glucose of more than 200 mg/dL in a nonstressed, ambulatory subject supports the diagnosis of Diabetes Mellitus.INR in Platelet poor plasma by Coagulation assayOrdered By: Henrry Purvis on 36-22-1801OBZ Coag (PPP) [Relative time]1.1 {INR}[facility] CenterComment on above:INR Therapeutic Range A) [...] 4.5Prothrombin time (PT)Ordered By: Henrry Purvis on 29-74-0830WO Coag (PPP) [Time]13.1 s9.0-12.9[facility] Comment on above:A hematocrit value greater than 55% may lead to inaccurate results in coagulation testing. Patientshaving hematocrit values >55% require a special collection tube for coagulation studies. Please contact the laboratory at [phone] for redraw instructions.Cholesterol [Mass/volume] in Serum or PlasmaOrdered By: Jarred Cline on 92-77-9390Zdqjrijjikw [Mass/Vol]96 mg/dL 140-200[facility] CenterComment on above:Chol less than 200 mg/dl low riskChol 201-239 mg/dl borderline riskChol 240 mg/dl and greater high riskCholesterol in LDL Calc [Mass/Vol]Ordered By: Jarred Cline on 12-29-2022 Cholesterol in LDL [Mass/Vol]40 mg/dL0-100[facility] Comment on above:LDL ATP III CLASSIFICATIONLDL less than 100 mg/dL OptimalLDL 100-129 mg/dL Near or above veatxkiXTO899-471 mg/dL Borderline highLDL 160-189 mg/dL HighLDL greater than 189 mg/dL Very highCholesterol in VLDL Calc [Mass/Vol]Ordered By: Jarred Cline on 78-88-9906Wgdfuqsyulk in VLDL [Mass/Vol]26 mg/dLTrumbull Regional Medical Centererum or plasma high density lipoprotein (HDL) cholesterol measurementOrdered By: Jarred Cline on 36-62-1109Byultniiems in HDL [Mass/Vol]30 mg/vK64-86KzmqbcdqvWexner Medical CenterComment on above: HDL CHOL ATP-III CLASSIFICATION Cardiovascular RiskHDL > or equal to 60 mg/dL LOWHDL < 40 mg/dL HIGHSerum or plasma total cholesterol/high density lipoprotein (HDL) cholesterol mass ratOrdered By: Jarred Cline on 12-29-2022 Cholesterol.total/Cholesterol in HDL [Mass ratio]3.2 {ratio}<5.0[facility]ner Medical CenterTriglyceride [Mass/volume] in Serum or PlasmaOrdered By: Jarred Cline on [id number] [Mass/Vol]132 mg/dL0-149[facility]ner Medical CenterComment on above:TRIG ATP III CLASSIFICATIONTRIG less than 150 mg/dL NormalTRIG 150-199 mg/dL Borderline highTRIG 200-500 mg/dL High TRIG greater than 500 mg/dL Very highStandard traceable to the Center for Disease Conrtrol and Prevention (CDC) test method.Glucose mean value [Mass/volume] in Blood Estimated from glycated hemoglobinOrdered By: Jarred Cline on [id number] glucose Estimated from glycated hemoglobin (Bld) [Mass/Vol]212 mg/dLWexner Medical CenterHemoglobin A1c percentage Ordered By: Jarred Cline on 65-11-4832BoU0t (Bld) [Mass fraction]9.0 %4.3-5.6 [facility] CenterComment on above:Increased risk for diabetes: 5.7 - 6.4diabetes: >6.4glycemic control for adults with diabetes: <7.0BNPon 81-57-0272Echtodqcrsz peptide B (Bld) [Mass/Vol]74.0 pg/mLNormal<=1,800.0The [facility] HospitalComment on above:Performed By: #### ELEC, BUN, BNP, LIVER, CREA #### [facility] [address] [place] [address] Dr. Brissa Hayden 46-96-7596Ovic nitrogen [Mass/Vol]41.0 mg/dLCritically high 7.0-18.0The [facility] HospitalComment on above:Performed By: #### ELEC, BUN, BNP, LIVER, CREA #### [facility] [address] [place] [address] Dr. Brissa Hay AUTO DIFFon [id number] #0.1 103/ulNormal0.0-0.1[facility] HospitalComment on above:Performed By: #### ELEC, BUN, BNP, LIVER, CREA #### [facility] [address] [place] [address] Dr. Brissa Pompasophils/100 WBC (Bld)0.8 %Normal0.2-2.0[facility] Comment on above:Performed By: #### ELEC, BUN, BNP, LIVER, CREA #### [facility] [address] [place] [address] Dr. Brissa Tracy #0.1 103/ulNormal0.0-0.7The [facility] HospitalComment on above: Performed By: #### ELEC, BUN, BNP, LIVER, CREA #### [facility] [address] [place] [address] Dr. Brissa Hoytosinophils/100 WBC (Bld)1.1 %Normal0.9-7.0The [facility] Comment on above:Performed By: #### ELEC, BUN, BNP, LIVER, CREA #### [facility] [address] [place] [address] Dr. Brissa Hoytrythrocyte distribution width (RBC) [Ratio]14.1 %Wqywsl53.0-15.[address] [facility] HospitalComment on above:Performed By: #### ELEC, BUN, BNP, LIVER, CREA #### [facility] [address] [place] [address] Dr. Brissa MaHematocrit (Bld) [Volume fraction]47.8 %Fzrgaq54.0-54.0The [facility] HospitalComment on above:Performed By: #### ELEC, BUN, BNP, LIVER, CREA #### [facility] [address] [place] [address] Dr. Brissa MaHemoglobin (Bld) [Mass/Vol]15.3 g/sDPgyalw45.0-18.0The [facility] HospitalComment on above:Performed By: #### ELEC, BUN, BNP, LIVER, CREA #### [facility] [address] [place] [address] Dr. Brissa Lay #0.17 10e3/ulCritically high0.00-0.03The [facility] Comment on above:Performed By: #### ELEC, BUN, BNP, LIVER, CREA #### [facility] [address] [place] [address] Dr. Brissa Lay %1.7 %Critically high0.0-0.5The [facility] HospitalComment on above:Performed By: #### ELEC, BUN, BNP, LIVER, CREA #### [facility] [address] [place] [address] Dr. Brissa Ogden #3.8 103/ulNormal1.2-3.8The [facility] HospitalComment on above:Performed By: #### ELEC, BUN, BNP, LIVER, CREA #### [facility] [address] [place] [address] Dr. Brissa Hessmphocytes/100 WBC (Bld)38.4 %Wmienk41.5-60.0The [facility] HospitalComment on above:Performed By: #### ELEC, BUN, BNP, LIVER, CREA #### [facility] [address] [place] [address] Dr. Brissa Hawkins DIFF REQNONormalThe [facility] St[facility] HospitalComment on above: Performed By: #### ELEC, BUN, BNP, LIVER, CREA #### [facility] [address] [place] [address] Dr. Brissa Elizabeth (RBC) [Entitic mass]30.2 pyOomfyn14.9-34.0The [facility] HospitalComment on above:Performed By: #### ELEC, BUN, BNP, LIVER, CREA #### [facility] [address] [place] [address] Dr. Brissa Elizabeth (RBC) [Mass/Vol]32.0 g/jPCulhwi31.9-35.2The [facility] HospitalComment on above:Performed By: #### ELEC, BUN, BNP, LIVER, CREA #### [facility] [address] [place] [address] Dr. Brissa Elizabeth (RBC) [Entitic vol]94.3 fLCritically high80.0-94.0The [facility] HospitalComment on above:Performed By: #### ELEC, BUN, BNP, LIVER, CREA #### [facility] [address] [place] [address] Dr. Brissa Kaye #0.7 103/ulNormal0.3-0.8The [facility] HospitalComment on above:Performed By: #### ELEC, BUN, BNP, LIVER, CREA #### [facility] [address] [place] [address] Dr. Brissa Reyocytes/100 WBC (Bld)7.4 %Normal1.7-12.0The [facility] Comment on above:Performed By: #### ELEC, BUN, BNP, LIVER, CREA #### [facility] [address] [place] [address] Dr. Brissa Barahona #5.0 103/ulNormal1.4-6.5The [facility] HospitalComment on above:Performed By: #### ELEC, BUN, BNP, LIVER, CREA #### [facility] [address] [place] [address] Dr. Brissa Sanchezutrophils/100 WBC (Bld)50.6 %Anrypv11.0-75.0The [facility] on above:Performed By: #### ELEC, BUN, BNP, LIVER, CREA #### [facility] [address] [place] [address] Dr. Brissa MaPlatelet mean volume (Bld) [Entitic vol]9.0 fLCritically low 9.5-13.5The [facility] on above:Performed By: #### ELEC, BUN, BNP, LIVER, CREA #### [facility] [address] [place] [address] Dr. Brissa MaPLT205 103/vjUrspne160-616Jkm [facility] on above: Performed By: #### ELEC, BUN, BNP, LIVER, CREA #### [facility] [address] [place] [address] Dr. Brissa MaRBC5.07 106/ulNormal4.70-6.10The [facility] on above:Performed By: #### ELEC, BUN, BNP, LIVER, CREA #### [facility] [address] [place] [address] Dr. Brissa MaWBC9.9 103/ulNormal4.0-11.0The [facility] on above: Performed By: #### ELEC, BUN, BNP, LIVER, CREA #### [facility] [address] [place] [address] Dr. Brissa MaCREATININEon 25-11-0740Echxylfmfh [Mass/Vol]1.60 mg/dLCritically high0.70-1.30The [facility] on above:Performed By: #### ELEC, BUN, BNP, LIVER, CREA #### [facility] [address] [place] [address] Dr. Brumfield ChangEGFR-AF QEECESTD90 mL/min/1.05m3Azvotjmlaa low>=60[facility] HospitalComment on above:Performed By: #### ELEC, BUN, BNP, LIVER, CREA #### [facility] [address] [place] [address] Dr. Brissa HoytGFR-NON AF IYBKFFZW47 mL/min/1.44j0Vlvymylzll low>=60The [facility] HospitalComment on above:Performed By: #### ELEC, BUN, BNP, LIVER, CREA #### [facility] [address] [address] [address] Brissa HoytLECTROLYTESon 57-68-4274Tivwn gap [Moles/Vol]15.5 mmol/LNormal The [facility] HospitalComment on above:Performed By: #### ELEC, BUN, BNP, LIVER, CREA #### [facility] [address] [place] [address] Dr. Brissa MaChloride [Moles/Vol]102 mmol/GWqubsh90-019FvvAvita Health System [facility] Hospital Comment on above:Performed By: #### ELEC, BUN, BNP, LIVER, CREA #### [facility] [address] [place] [address] Dr. Brissa MaCO2 [Moles/Vol]25.5 mmol/OIngdmg30.0-32.0[facility] Comment on above:Performed By: #### ELEC, BUN, BNP, LIVER, CREA #### [facility] [address] [place] [address] Dr. Brissa MaPotassium [Moles/Vol]5.0 mmol/LNormal3.5-5.1[facility] Comment on above:Performed By: #### ELEC, BUN, BNP, LIVER, CREA #### [facility] [address] [address] [address] Brissa MaSodium [Moles/Vol]138 mmol/VEgkysv667-276TyfAvita Health System Bucyrus Hospital Comment on above:Performed By: #### ELEC, BUN, BNP, LIVER, CREA #### [facility] [address] [place] [address] Dr. Brissa MaGLYCOHEMOGLOBIN A1Con [id number] RECOMMENDATIONSEE BELOWNormal The [facility] on above:Result Comment: ADA RECOMMENDED LIMIT 4.0 - 6.0 ADA THERAPEUTIC TARGET < 7.0 ACTION SUGGESTED > 7.0Performed By: #### A1C #### [facility] [address] [place] [address] Dr. Brissa MaGlucose [Mass/Vol]203 mg/dLNormalThe [facility] HospitalComoaklawn hospital on above:Performed By: #### A1C #### [facility] [address] [place] [address] Dr. Brissa MaHbA1c (Bld) [Mass fraction]8.7 %Critically high4.5-6.2The [facility] on above:Performed By: #### A1C #### [facility] [address] [place] [address] Dr. Brissa Michelle PROFILEon 74-22-4239Gbmdcwr [Mass/Vol]3.7 g/dLNormal3.4-5.0 [facility] on above:Performed By: #### ELEC, BUN, BNP, LIVER, CREA #### [facility] [address] [place] [address] Dr. Brissa MaAlbumin/Globulin [Mass ratio]1.0 {ratio}NormalThe [facility] on above:Performed By: #### ELEC, BUN, BNP, LIVER, CREA #### [facility] [address] [place] [address] Dr. Brissa Baxter [Catalytic activity/Vol]80 U/KSiunzk33-673Zvu [facility] on above:Performed By: #### ELEC, BUN, BNP, LIVER, CREA #### [facility] [address] [place] [address] Dr. Brissa Hand [Catalytic activity/Vol]16 U/YRuilep75-34Tvg [facility] on above:Performed By: #### ELEC, BUN, BNP, LIVER, CREA #### [facility] [address] [place] [address] Dr. Brissa Gautam [Catalytic activity/Vol]18 U/AKuowca65-11Dur [facility] HospitalComment on above:Performed By: #### ELEC, BUN, BNP, LIVER, CREA #### [facility] [address] [place] [address] Dr. Brissa SanchezI, CONJUGATED0.1 mg/dLNormal0.0-0.2The [facility] Comment on above:Performed By: #### ELEC, BUN, BNP, LIVER, CREA #### [facility] [address] [place] [address] Dr. Brissa Sanchezirubin [Mass/Vol]0.7 mg/dLNormal0.2-1.0[facility] Comment on above:Performed By: #### ELEC, BUN, BNP, LIVER, CREA #### [facility] [address] [place] [address] Dr. Brissa MaGlobulin (S) [Mass/Vol]3.8 g/dLNormalThe [facility] HospitalComment on above:Performed By: #### ELEC, BUN, BNP, LIVER, CREA #### [facility] [address] [place] [address] Dr. Brissa MaProtein [Mass/Vol]7.5 g/dLNormal6.4-8.2[facility] Comment on above:Performed By: #### ELEC, BUN, BNP, LIVER, CREA #### [facility] [address] [place] [address] Dr. Brissa Batres 68-77-2448Egdjtwsfnal peptide B (Bld) [Mass/Vol]150.0 pg/mL Normal<=1,800.0The [facility] HospitalComment on above:Performed By: #### ELEC, BUN, BNP, LIVER, CREA #### [facility] [address] [place] [address] Dr. Brissa Hayden 75-11-7186Rmgj nitrogen [Mass/Vol]22.0 mg/dLCritically high 7.0-18.0The [facility] HospitalComment on above:Performed By: #### ELEC, BUN, BNP, LIVER, CREA #### [facility] [address] [place] [address] Dr. Brissa Hay AUTO DIFFon 62-24-6228ATYW #0.0 103/ulNormal0.0-0.1The [facility] HospitalComment on above:Performed By: #### ELEC, BUN, BNP, LIVER, CREA #### [facility] [address] [place] [address] Dr. Brissa MaBasophils/100 WBC (Bld)0.5 %Normal0.2-2.0The [facility] Comment on above:Performed By: #### ELEC, BUN, BNP, LIVER, CREA #### [facility] [address] [place] [address] Dr. Brissa HoytO #0.1 103/ulNormal0.0-0.7The [facility] HospitalComment on above: Performed By: #### ELEC, BUN, BNP, LIVER, CREA #### [facility] [address] [place] [address] Dr. Brissa Hoytosinophils/100 WBC (Bld)1.9 %Normal0.9-7.0The [facility] Comment on above:Performed By: #### ELEC, BUN, BNP, LIVER, CREA #### [facility] [address] [place] [address] Dr. Brissa Hoytrythrocyte distribution width (RBC) [Ratio]14.1 %Ldpcwa44.0-15.[address] [facility] HospitalComment on above:Performed By: #### ELEC, BUN, BNP, LIVER, CREA #### [facility] [address] [place] [address] Dr. Brissa MaHematocrit (Bld) [Volume fraction]43.1 %Mflvop53.0-54.0The [facility] HospitalComment on above:Performed By: #### ELEC, BUN, BNP, LIVER, CREA #### [facility] [address] [place] [address] Dr. Brissa MaHemoglobin (Bld) [Mass/Vol]13.7 g/dLCritically low14.0-18.0The [facility] HospitalComment on above:Performed By: #### ELEC, BUN, BNP, LIVER, CREA #### [facility] [address] [address] [address] Brissa Lay #0.05 10e3/ulCritically high0.00-0.03The [facility] Comment on above:Performed By: #### ELEC, BUN, BNP, LIVER, CREA #### [facility] [address] [place] [address] Dr. Brissa Lay %0.8 %Critically high0.0-0.5The [facility] HospitalComment on above:Performed By: #### ELEC, BUN, BNP, LIVER, CREA #### [facility] [address] [place] [address] Dr. Brissa Ogden #2.7 103/ulNormal1.2-3.8The [facility] HospitalComment on above:Performed By: #### ELEC, BUN, BNP, LIVER, CREA #### [facility] [address] [place] [address] Dr. Brissa Fischerhocytes/100 WBC (Bld)42.1 %Jybium54.5-60.0The [facility] on above:Performed By: #### ELEC, BUN, BNP, LIVER, CREA #### [facility] [address] [place] [address] Dr. Brissa HydeUAL DIFF REQNONormalThe [facility] HospitalComment on above: Performed By: #### ELEC, BUN, BNP, LIVER, CREA #### [facility] [address] [place] [address] Dr. Brissa Elizabeth (RBC) [Entitic mass]29.8 zpIfvkcn39.9-34.0The [facility] HospitalComment on above:Performed By: #### ELEC, BUN, BNP, LIVER, CREA #### [facility] [address] [place] [address] Dr. Brissa Elizabeth (RBC) [Mass/Vol]31.8 g/jVFfoany53.9-35.2The [facility] HospitalComment on above:Performed By: #### ELEC, BUN, BNP, LIVER, CREA #### [facility] [address] [place] [address] Dr. Brissa Howard (RBC) [Entitic vol]93.9 fFHftifd55.0-94.0The [facility] HospitalComment on above:Performed By: #### ELEC, BUN, BNP, LIVER, CREA #### [facility] [address] [place] [address] Dr. Brissa Kaye #0.5 103/ulNormal0.3-0.8The [facility] HospitalComment on above:Performed By: #### ELEC, BUN, BNP, LIVER, CREA #### [facility] [address] [place] [address] Dr. Brissa Reyocytes/100 WBC (Bld)7.8 %Normal1.7-12.0The [facility] Comment on above:Performed By: #### ELEC, BUN, BNP, LIVER, CREA #### [facility] [address] [place] [address] Dr. Brissa Barahona #3.0 103/ulNormal1.4-6.5The [facility] HospitalComment on above:Performed By: #### ELEC, BUN, BNP, LIVER, CREA #### [facility] [address] [place] [address] Dr. Brissa Sanchezutrophils/100 WBC (Bld)46.9 %Tnddly99.0-75.0The [facility] HospitalComment on above:Performed By: #### ELEC, BUN, BNP, LIVER, CREA #### [facility] [address] [place] [address] Dr. Brissa Frye mean volume (Bld) [Entitic vol]9.2 fLCritically low 9.5-13.5The [facility] on above:Performed By: #### ELEC, BUN, BNP, LIVER, CREA #### [facility] [address] [place] [address] Dr. Brissa MaPLT163 103/alFwjqdd379-149AhlOur [facility] on above: Performed By: #### ELEC, BUN, BNP, LIVER, CREA #### [facility] [address] [place] [address] Dr. Brissa MaRBC4.59 106/ulCritically low4.70-6.10The [facility] on above:Performed By: #### ELEC, BUN, BNP, LIVER, CREA #### [facility] [address] [place] [address] Dr. Brissa MaWBC6.4 103/ulNormal4.0-11.0The [facility] on above: Performed By: #### ELEC, BUN, BNP, LIVER, CREA #### [facility] [address] [place] [address] Dr. Brissa MaCREATININEon 27-23-3923Pajdurinys [Mass/Vol]1.47 mg/dLCritically high0.70-1.30The [facility] on above:Performed By: #### ELEC, BUN, BNP, LIVER, CREA #### [facility] [address] [place] [address] Dr. Brumfield ChangEGFR-AF YXVPWBJW18 mL/min/1.32f1Nqgdbukvns low>=60[facility] on above:Performed By: #### ELEC, BUN, BNP, LIVER, CREA #### [facility] [address] [place] [address] Dr. Brissa HoytGFR-NON AF UGWFXBVA37 mL/min/1.55n9Xflevgpasf low>=60The [facility] on above:Performed By: #### ELEC, BUN, BNP, LIVER, CREA #### [facility] [address] [place] [address] Dr. Brissa HoytLECTROLYTESon 67-71-0142Txdza gap [Moles/Vol]10.1 mmol/LNormal The [facility] on above:Performed By: #### ELEC, BUN, BNP, LIVER, CREA #### [facility] [address] [place] [address] Dr. Brissa MaChloride [Moles/Vol]106 mmol/RVzzlbp56-298Mdn [facility] Comment on above:Performed By: #### ELEC, BUN, BNP, LIVER, CREA #### [facility] [address] [address] [address] Brissa MaCO2 [Moles/Vol]28.4 mmol/ZSqgedx46.0-32.0The [facility] Comment on above:Performed By: #### ELEC, BUN, BNP, LIVER, CREA #### [facility] [address] [address] [address] Brissa MaPotassium [Moles/Vol]4.5 mmol/LNormal3.5-5.1The [facility] Comment on above:Performed By: #### ELEC, BUN, BNP, LIVER, CREA #### [facility] [address] [address] [address] Brissa MaSodium [Moles/Vol]140 mmol/HYkswon145-903Ydj [facility] Comment on above:Performed By: #### ELEC, BUN, BNP, LIVER, CREA #### [facility] [address] [address] [address] Brissa MaGLYCOHEMOGLOBIN A1Con 20-79-9918XHP RECOMMENDATIONSEE BELOWNoMcCullough-Hyde Memorial HospitalComment on above:Result Comment: ADA RECOMMENDED LIMIT 4.0 - 6.0 ADA THERAPEUTIC TARGET < 7.0 ACTION SUGGESTED > 7.0Performed By: #### A1C #### [facility] [address] [place] [address] Dr. Brissa MaGlucose [Mass/Vol]223 mg/dLNormalThHarrison Community HospitalComment on above:Performed By: #### A1C #### [facility] [address] [address] [address] Brissa MaHbA1c (Bld) [Mass fraction]9.4 %Critically high4.5-6.2[facility] HospitalComment on above:Performed By: #### A1C #### [facility] [address] [address] [address] Brissa MaLIMARILIA PROFILEon 34-12-5528Fliyzks [Mass/Vol]3.6 g/dLNormal3.4-5.0 [facility] on above:Performed By: #### ELEC, BUN, BNP, LIVER, CREA #### [facility] [address] [place] [address] Dr. Brissa MaAlbumin/Globulin [Mass ratio]1.0 {ratio}NormalThe [facility] on above:Performed By: #### ELEC, BUN, BNP, LIVER, CREA #### [facility] [address] [place] [address] Dr. Brissa Baxter [Catalytic activity/Vol]86 U/ZLpyguj29-364Jlm [facility] on above:Performed By: #### ELEC, BUN, BNP, LIVER, CREA #### [facility] [address] [place] [address] Dr. Brissa Hand [Catalytic activity/Vol]18 U/ODrtvzd18-61Qur [facility] on above:Performed By: #### ELEC, BUN, BNP, LIVER, CREA #### [facility] [address] [place] [address] Dr. Brissa Gautam [Catalytic activity/Vol]20 U/HPcowci38-88Use [facility] on above:Performed By: #### ELEC, BUN, BNP, LIVER, CREA #### [facility] [address] [place] [address] Dr. Brissa Ramirez, CONJUGATED0.1 mg/dLNormal0.0-0.2The [facility] Comment on above:Performed By: #### ELEC, BUN, BNP, LIVER, CREA #### [facility] [address] [place] [address] Dr. Brissa Castro [Mass/Vol]0.4 mg/dLNormal0.2-1.0[facility] Comment on above:Performed By: #### ELEC, BUN, BNP, LIVER, CREA #### [facility] [address] [place] [address] Dr. Brissa MaGlobulin (S) [Mass/Vol]3.7 g/dLNormalThe [facility] HospitalComment on above:Performed By: #### ELEC, BUN, BNP, LIVER, CREA #### [facility] [address] [place] [address] Dr. Brissa MaProtein [Mass/Vol]7.3 g/dLNormal6.4-8.2The [facility] Comment on above:Performed By: #### ELEC, BUN, BNP, LIVER, CREA #### [facility] [address] [place] [address] Dr. Brissa Hayden 78-17-6822Ufwd nitrogen [Mass/Vol]25.0 mg/dLCritically high 7.0-18.0The [facility] HospitalComment on above:Performed By: #### ELEC, BUN, BNP, LIVER, CREA #### [facility] [address] [place] [address] Dr. Brissa Hay AUTO DIFFon [id number] #0.1 103/ulNormal0.0-0.1The [facility] HospitalComment on above:Performed By: #### CBC #### [facility] [address] [place] [address] Dr. Brissa MaBasophils/100 WBC (Bld)0.7 %Normal0.2-2.0[facility] Comment on above:Performed By: #### CBC #### [facility] [address] [place] [address] Dr. Brissa Tracy #0.1 103/ulNormal0.0-0.7The [facility] Charles HospitalComment on above: Performed By: #### CBC #### [facility] [address] [place] [address] Dr. Brissa Hoytosinophils/100 WBC (Bld)1.8 %Normal0.9-7.0The [facility] Comment on above:Performed By: #### CBC #### [facility] [address] [place] [address] Dr. Brissa oHytrythrocyte distribution width (RBC) [Ratio]14.1 %Dhrenw54.0-15.[address] [facility] HospitalComment on above:Performed By: #### CBC #### [facility] [address] [address] [address] Brissa MaHematocrit (Bld) [Volume fraction]41.9 %Critically low42.0-54.[address] [facility] HospitalComment on above:Performed By: #### CBC #### [facility] [address] [place] [address] Dr. Brissa MaHemoglobin (Bld) [Mass/Vol]13.3 g/dLCritically low14.0-18.0The [facility] HospitalComment on above:Performed By: #### CBC #### [facility] [address] [place] [address] Dr. Brissa Lay #0.06 10e3/ulCritically high0.00-0.03The [facility] Comment on above:Performed By: #### CBC #### [facility] [address] [place] [address] Dr. Brissa Lay %0.9 %Critically high0.0-0.5The [facility] HospitalComment on above:Performed By: #### CBC #### [facility] [address] [place] [address] Dr. Brissa Ogden #2.6 103/ulNormal1.2-3.8The [facility] HospitalComment on above:Performed By: #### CBC #### [facility] [address] [place] [address] Dr. Brissa Fischerhocytes/100 WBC (Bld)37.8 %Nvvtqi71.5-60.0The [facility] HospitalComment on above:Performed By: #### CBC #### [facility] [address] [place] [address] Dr. Brissa HydeUAL DIFF REQNONormalThe [facility] St[facility] HospitalComment on above: Performed By: #### CBC #### [facility] [address] [place] [address] Dr. Brissa Fernandez (RBC) [Entitic mass]30.4 vfRbfszu53.9-34.0The [facility] HospitalComment on above:Performed By: #### CBC #### [facility] [address] [place] [address] Dr. Brissa Elizabeth (RBC) [Mass/Vol]31.7 g/nVDneprs63.9-35.2The [facility] HospitalComment on above:Performed By: #### CBC #### [facility] [address] [place] [address] Dr. Brissa Elziabeth (RBC) [Entitic vol]95.7 fLCritically high80.0-94.0The [facility] HospitalComment on above:Performed By: #### CBC #### [facility] [address] [place] [address] Dr. Brissa Kaye #0.6 103/ulNormal0.3-0.8The [facility] HospitalComment on above:Performed By: #### CBC #### [facility] [address] [place] [address] Dr. Brissa Reyocytes/100 WBC (Bld)8.4 %Normal1.7-12.0The [facility] Comment on above:Performed By: #### CBC #### [facility] [address] [place] [address] Dr. Brissa Barahona #3.4 103/ulNormal1.4-6.5The [facility] HospitalComment on above:Performed By: #### CBC #### [facility] [address] [place] [address] Dr. Brissa Limonophils/100 WBC (Bld)50.4 %Apwfyy87.0-75.0The [facility] HospitalComment on above:Performed By: #### CBC #### [facility] [address] [place] [address] Dr. Brissa Frye mean volume (Bld) [Entitic vol]9.2 fLCritically low 9.5-13.5The [facility] HospitalComment on above:Performed By: #### CBC #### [facility] [address] [place] [address] Dr. Brissa WalkerT151 103/unDubxmj167-166Oqp [facility]ment on above: Performed By: #### CBC #### [facility] [address] [place] [address] Dr. Brissa MaRBC4.38 106/ulCritically low4.70-6.10The [facility] on above:Performed By: #### CBC #### [facility] [address] [place] [address] Dr. Brissa MaWBC6.8 103/ulNormal4.0-11.0The [facility] HospitalComoaklawn hospital on above: Performed By: #### CBC #### [facility] [address] [place] [address] Dr. Brissa MaCREATININEon 66-90-8673Tomvhtgikc [Mass/Vol]1.30 mg/dLNormal 0.70-1.30The [facility] HospitalComment on above:Performed By: #### ELEC, BUN, BNP, LIVER, CREA #### [facility] [address] [place] [address] Dr. Brumfield ChangEGFR-AF YEMENI>60Normal>=60[facility] Hospitalment on above:Performed By: #### ELEC, BUN, BNP, LIVER, CREA #### [facility] [address] [place] [address] Dr. Brissa HoytGFR-NON AF PDJWZIQX82 mL/min/1.52a7Dpiuzgamwn low>=60The [facility] on above:Performed By: #### ELEC, BUN, BNP, LIVER, CREA #### [facility] [address] [place] [address] Dr. Brissa HoytLECTROLYTESon 23-10-2941Ggzco gap [Moles/Vol]12.3 mmol/LNormal The [facility] HospitalComoaklawn hospital on above:Performed By: #### ELEC, BUN, BNP, LIVER, CREA #### [facility] [address] [place] [address] Dr. Brissa MaChloride [Moles/Vol]106 mmol/NHkzozs64-927Uhh [facility] Comment on above:Performed By: #### ELEC, BUN, BNP, LIVER, CREA #### [facility] [address] [address] [address] Brissa MaCO2 [Moles/Vol]24.3 mmol/QVgcdvv31.0-32.0[facility] Comment on above:Performed By: #### ELEC, BUN, BNP, LIVER, CREA #### [facility] [address] [address] [address] Brissa MaPotassium [Moles/Vol]4.6 mmol/LNormal3.5-5.1The [facility] Comment on above:Performed By: #### ELEC, BUN, BNP, LIVER, CREA #### [facility] [address] [address] [address] Brissa MaSodium [Moles/Vol]138 mmol/SNvdwgj573-668DqkAv[facility] Comment on above:Performed By: #### ELEC, BUN, BNP, LIVER, CREA #### [facility] [address] [place] [address] Dr. Brissa MaGLYCOHEMOGLOBIN A1Con 12-71-3345GRE RECOMMENDATIONSEE BELOWPromedica Toledo HospitalComment on above:Result Comment: ADA RECOMMENDED LIMIT 4.0 - 6.0 ADA THERAPEUTIC TARGET < 7.0 ACTION SUGGESTED > 7.0Performed By: #### A1C #### [facility] [address] [address] [address] Brissa MaGlucose [Mass/Vol]189 mg/dLNoMemorial Health System Marietta Memorial HospitalComment on above:Performed By: #### A1C #### [facility] [address] [place] [address] Dr. Brissa MaHbA1c (Bld) [Mass fraction]8.2 %Critically high4.5-6.2The [facility] HospitalComment on above:Performed By: #### A1C #### [facility] [address] [place] [address] Dr. Brissa MaLIPID PROFILEon 50-52-8884LTPO-HDL RATIO NORMSEE BELOWBlanchard Valley Health SystemComment on above:Result Comment: 3.3 - 4.4 LOW RISK 4.4 - 7.1 AVERAGE RISK 7.1 - 11.0 MODERATE RISK >11.0 HIGH RISKPerformed By: #### CREA, ELEC, LIPID, LIVER, BUN #### [facility] [address] [address] [address] Brissa MaCholesterol [Mass/Vol]75 mg/dLNormal<=200[facility] Comment on above:Performed By: #### CREA, ELEC, LIPID, LIVER, BUN #### [facility] [address] [address] [address] Brissa Dacostaesterol in HDL [Mass/Vol]33 mg/dLCritically lnm99-72SbrAvita Health System Bucyrus HospitalComment on above:Performed By: #### CREA, ELEC, LIPID, LIVER, BUN #### [facility] [address] [place] [address] Dr. Brissa Dacostaesterol in LDL [Mass/Vol]22.0 mg/dLNoMemorial Health System Marietta Memorial HospitalComment on above:Performed By: #### CREA, ELEC, LIPID, LIVER, BUN #### [facility] [address] [address] [address] Brissa [place].total/Cholesterol in HDL [Mass ratio]2.3 {ratio} NormalAvita Health System Bucyrus HospitalComoaklawn hospital on above:Performed By: #### CREA, ELEC, LIPID, LIVER, BUN #### [facility] [address] [place] [address] Dr. Brissa Rothman NORMAL> or = 60 mg/dl - LOW CARDIOVASCULAR RISK <40 mg/dl - HIGH CARDIOVASCULAR RISKBlanchard Valley Health SystemComment on above:Performed By: #### CREA, ELEC, LIPID, LIVER, BUN #### [facility] [address] [place] [address] Dr. Brissa MaLDL CALC NORMALSEE BELOWBlanchard Valley Health SystemComment on above:Result Comment: <100 mg/dl OPTIMAL 100 - 129 mg/dl NEAR OR ABOVE OPTIMAL 130 - 159 mg/dl BORDERLINE HIGH 160 - 189 mg/dl HIGH >190 mg/dl VERY HIGH Performed By: #### CREA, ELEC, LIPID, LIVER, BUN #### [facility] [address] [address] [address] Brissa MaTriglyceride [Mass/Vol]100 mg/dLNormal<=150The [facility] Comment on above:Performed By: #### CREA, ELEC, LIPID, LIVER, BUN #### [facility] [address] [address] [address] Brissa MaVLDL CALC20.0 mg/dLNormalThe [facility] HospitalComment on above: Performed By: #### CREA, ELEC, LIPID, LIVER, BUN #### [facility] [address] [place] [address] Dr. Brissa Michelle PROFILEon 69-41-0281Uyfgqqm [Mass/Vol]3.4 g/dLNormal3.4-5.[address] [facility] HospitalComment on above:Performed By: #### ELEC, BUN, BNP, LIVER, CREA #### [facility] [address] [place] [address] Dr. Brissa MaAlbumin/Globulin [Mass ratio]1.0 {ratio}NormalThe [facility] HospitalComoaklawn hospital on above:Performed By: #### ELEC, BUN, BNP, LIVER, CREA #### [facility] [address] [place] [address] Dr. Brissa Baxter [Catalytic activity/Vol]96 U/DJhxsjq27-066Zou [facility] on above:Performed By: #### ELEC, BUN, BNP, LIVER, CREA #### [facility] [address] [place] [address] Dr. Brissa Hand [Catalytic activity/Vol]24 U/AAcwqen03-69Gnd [facility] on above:Performed By: #### ELEC, BUN, BNP, LIVER, CREA #### [facility] [address] [place] [address] Dr. Brissa MaAST [Catalytic activity/Vol]14 U/LCritically mxg65-99Mbn [facility] on above:Performed By: #### ELEC, BUN, BNP, LIVER, CREA #### [facility] [address] [address] [address] Brissa SanchezI, CONJUGATED0.1 mg/dLNormal0.0-0.2[facility] Comment on above:Performed By: #### ELEC, BUN, BNP, LIVER, CREA #### [facility] [address] [address] [address] Brissa Sanchezirubin [Mass/Vol]0.4 mg/dLNormal0.2-1.0[facility] Comment on above:Performed By: #### ELEC, BUN, BNP, LIVER, CREA #### [facility] [address] [address] [address] Brissa MaGlobulin (S) [Mass/Vol]3.5 g/dLNormalThe [facility] HospitalComment on above:Performed By: #### ELEC, BUN, BNP, LIVER, CREA #### [facility] [address] [address] [address] Brissa MaProtein [Mass/Vol]6.9 g/dLNormal6.4-8.2[facility] Comment on above:Performed By: #### ELEC, BUN, BNP, LIVER, CREA #### [facility] [address] [place] [address] Dr. Brissa Ma Vital Signs Date TimeVital SignValuePerforming KwubyrqkjJzwngjki11-16-9617 11:06-0400Body .2 cmStephanie Brown MD Work Phone: [facility]09-10-2025 11:06-0400 Body mass index (BMI) [Ratio]30.07 kg/d4AkxoacStephanie Brown MD Work Phone: [facility]09-10-2025 11:06-0400 Body wjkufd56.09 kgStephanie Brown MD Work Phone: [facility]09-10-2025 11:06-0400 Diastolic blood eutwhvzn86 mm[Hg]Stephanie Brown MD Work Phone: [facility]09-10-2025 11:06-0400 Heart rate68 /minStephanie Brown MD Work Phone: [facility]09-10-2025 11:06-0400 Systolic blood mm[Hg]Stephanie Brown MD Work Phone: [facility]08-15-2025 09:30-0400 Body knlrqe887.2 cmAllison Petznick DO Work Phone: 1(661)915-[address] [place], [place] [address]Bsamjvaqho67-74-7207 09:30-0400Body mass index (BMI) [Ratio]29.66 kg/o5Sffntqd Petznick DO Work Phone: 1(110)[facility] CenterUniversity [facility] Medical CenterApskpwsgoh90-22-8442 09:30-0400Body temperature 96.3 [degF]Veda Petznick DO Work Phone: 1(818)[facility] CenterUniversity [facility] Medical CenterQpcopocxqt82-07-1618 09:30-0400Body zhobfz16.91 kgAllison Petznick DO Work Phone: [facility] CenterHidahiitkm21-07-4417 09:30-0400Diastolic blood yjspwvyl67 mm[Hg]Veda Petznick DO Work Phone: [phone] CenterSagupilmlx28-68-4493 09:30-0400Heart rate84 /min Veda Petznick DO Work Phone: 1(340)[facility]1199[facility] CenterVbhjmmdvjk09-14-8426 09:30-4733XqU0% (BldA) [Mass fraction]98 %Veda Petznick DO Work Phone: [facility] CenterOwymnqcbxg08-93-7962 09:30-0400Systolic blood yoqfaegk134 mm[Hg]Vdea Petznick DO Work Phone: 1(208)575-[address] [place], [place] [address]Bfziopdoqb12-07-6985 09:23-0400Body ycspus895.2 cmAllison Petznick DO Work Phone: [facility] CenterDknzijdtmy07-64-0196 09:23-0400Body mass index (BMI) [Ratio]28.35 kg/t3Rsxrgzq Petznick DO Work Phone: 1(211)655-[address] [place], [place] [address]Zgyiydjoxh30-97-9790 09:23-0400Body temperature 98.2 [degF]Veda Petznick DO Work Phone: 1(419)[address] [place], [place] 49[address]05-20-2025 09:23-0400Body jqfnda64.1 kg Veda Petznick DO Work Phone: 1(419)[address] [place], [place] 49[address]05-20-2025 09:23-0400Diastolic blood tgaqoexe07 mm[Hg]Veda Petznick DO Work Phone: 1(419)[address] [place], [place] [address]05-20-2025 09:23-0400Heart rate82 /min Veda Petznick DO Work Phone: 1(419)[address] [place], [place] 49[address]05-20-2025 09:23-1359GnF3% (BldA) [Mass fraction]98 %Veda Petznick DO Work Phone: 1(419)[address] [place], [place] [address]05-20-2025 09:23-0400Systolic blood veealqub242 mm[Hg]Veda Petznick DO Work Phone: 1(419)[address] [place], [place] 49[address]902-17-2025 12:54-0500Body muxmnp495.2 cmAllison Petznick DO Work Phone: 1(419)[address] [place], [place] 49[address]902-17-2025 12:54-0500Body mass index (BMI) [Ratio]27.88 kg/o5Htufduf Petznick DO Work Phone: 1(419)[address] [place], [place] 49[address]902-17-2025 12:54-0500Body temperature 98.2 [degF]Veda Petznick DO Work Phone: 1([phone] [place], [place] [address]902-17-2025 12:54-0500Body yqzpcw31.74 kgAllison Petznick DO Work Phone: 1([phone] [place], [place] 49[address]902-17-2025 12:54-0500Diastolic blood oojleiuw40 mm[Hg]Veda Petznick DO Work Phone: 1(419)[address] [place], [place] [address]902-17-2025 12:54-0500Heart rate76 /min Veda Petznick DO Work Phone: 1(419)[facility] [place], [place] [address]Zuuijvldoa41-90-3971 12:54-3189KqB8% (BldA) [Mass fraction]97 %Veda Petznick DO Work Phone: 1(081)701-[address] [place], [place] [address]Lhjwusndrg82-94-7241 12:54-0500Systolic blood msomcmgg810 mm[Hg]Veda Petznick DO Work Phone: 1(306)086-[address] [place], [place] [address]Jakcadmrfe75-46-9263 15:16-0500Body hjjjie467.2 cmStephanie Brown MD Work Phone: 1(606)183-[address] [place], [place] 6242601-08-2025 15:16-0500 Body mass index (BMI) [Ratio]28.19 kg/r4RjtxphStephanie Brown MD Work Phone: 1(454)[address]01-08-2025 15:16-0500 Body vgjcne18.65 kgStephanie Brown MD Work Phone: 1(132)[address]01-08-2025 15:16-0500 Diastolic blood whiwfqqb89 mm[Hg]Stephanie Brown MD Work Phone: 1(042)[address]01-08-2025 15:16-0500 Heart rate68 /minStephanie Brown MD Work Phone: 1(088)[address]01-08-2025 15:16-0500 Systolic blood lssezwop452 mm[Hg]Stephanie Brown MD Work Phone: 1(838)23[address]11-18-2024 09:01-0500 Body vnlyls257.2 cmAllison Petznick DO Work Phone: 1(917)612-[address] [place], [place] [address]Inxcsifzuz70-40-3273 09:01-0500Body mass index (BMI) [Ratio]28.19 kg/t6Ydmwcaf Petznick DO Work Phone: 1(507)456-[address] [place], [place] [address]Ywiettyzgl76-18-3712 09:01-0500Body temperature 98.01 [degF]Veda Petznick DO Work Phone: 1(420)218-[address] [place], [place] [address]Rohngdlyva81-33-0760 09:01-0500Body jcfkza22.65 kgAllison Petznick DO Work Phone: 1(486)512-[address] [place], [place] [address]Qeafzfqloy24-97-2377 09:01-0500Diastolic blood aklqzzat00 mm[Hg]Veda Petznick DO Work Phone: [facility] CenterDlhztomjiw92-46-2279 09:01-0500Heart rate92 /min Veda Petznick DO Work Phone: [facility] CenterPwlqlprzzl33-49-9533 09:01-0380LfU9% (BldA) [Mass fraction]94 %Veda Petznick DO Work Phone: [facility] CenterFhtgznycrs57-78-8553 09:01-0500Systolic blood ayhsagap504 mm[Hg]Veda Petznick DO Work Phone: [facility] CenterVjxcuudrxz28-10-4195 13:27-0400Body qpqykt514.2 cmSultanafernanda Calderon DPM Work Phone: [facility] CenterSxdevlsoeu36-80-1796 13:27-0400Body mass index (BMI) [Ratio]28.04 kg/n0Qpojxwic Jax DPM Work Phone: 1(406)836-[address] [place], [place] [address]Wmlbvjlzfs98-19-6002 13:27-0400Body .19 kgKennedy Jax DPM Work Phone: [facility] CenterRwyjlhhjgt26-45-6088 13:27-0400Respiratory rate17 /minAbielsara Calderon DPM Work Phone: [facility] CenterPpykustfcn24-53-8822 13:58-0400Body mmxsbu002.2 cmAllison Petznick DO Work Phone: [facility] CenterQotapbjapi73-31-3501 13:58-0400Body mass index (BMI) [Ratio]28.16 kg/q1Cnqolhh Petznick DO Work Phone: [facility] CenterTswshhrczl48-79-1498 13:58-0400Body temperature 96.4 [degF]Veda Petznick DO Work Phone: [facility] CenterZtenlcmpfi20-25-1332 13:58-0400Body dvbdte32.56 kgAllison Petznick DO Work Phone: noCox BransonYicsxocxkm04-56-4527 13:58-0400Diastolic blood vmtezhgx26 mm[Hg]Veda Petznick DO Work Phone: noCox BransonEltokvnqia99-02-1342 13:58-0400Heart rate74 /min Veda Petznick DO Work Phone: noCox BransonEtgxqkkjfe83-35-0570 13:58-0060OjK5% (BldA) [Mass fraction]98 %Veda Petznick DO Work Phone: noCox BransonPahuybvpww91-92-6535 13:58-0400Systolic blood irntmtaf750 mm[Hg]Veda Petznick DO Work Phone: noCox BransonExrjghpmim81-24-4554 13:40-0400Body siffer120.6 cmHenrry Purvis MD Work Phone: 1(257)724-[address] [place], [place] [address]2605-24-2024 13:40-0400 Body mass index (BMI) [Ratio]30.02 kg/i7SbdpuofHenrry Purvis MD Work Phone: 1(436)[address]05-24-2024 13:40-0400 Body csnboe17.37 kgHenrry Purvis MD Work Phone: 1(357)[address] [place], [place] [address]5-24-2024 13:40-0400 Diastolic blood pcrhmoer57 mm[Hg]Henrry Purvis MD Work Phone: 1(011)[address]60 [address]05-24-2024 13:40-0400 Heart rate82 /minWirio Purvis MD Work Phone: 1([phone])[address] [place], [place] [address]5-24-2024 13:40-0400 Systolic blood mm[Hg]Henrry Purvis MD Work Phone: 1(852)[address]02-07-2024 13:24-0500 Body wsmkak767.2 cmMajun BROOKS Work Phone: [facility] CenterNvnkvnabsb93-36-3320 13:24-0500Body mass index (BMI) [Ratio]28.19 kg/h9MshpzskNegro BROOKS Work Phone: [facility] CenterPtvokewhvu69-30-7138 13:24-0500Body .65 kgMatthew Kevin BROOKS Work Phone: [facility] CenterXfeksfpldh52-19-5310 14:28-0500Body kypolt307.2 cmHenrry Purvis MD Work Phone: [facility]11-15-2023 14:28-0500 Body mass index (BMI) [Ratio]30.07 kg/a0DqatbsfHenrry Purvis MD Work Phone: [address] [place], [place] [address]111-15-2023 14:28-0500 Body ludyio25.09 kgHenrry Purvis MD Work Phone: 1(716)230-[address] [place], [place] 6242611-15-2023 14:28-0500 Diastolic blood mm[Hg]Henrry Purvis MD Work Phone: [facility]11-15-2023 14:28-0500 Heart rate92 /minHenrry Purvis MD Work Phone: [facility]11-15-2023 14:28-0500 Systolic blood aenbkxat340 mm[Hg]Henrry Purvis MD Work Phone: [address] [place], [place] [address]111-03-2023 11:43-0400 Body mass index (BMI) [Ratio]30.4 kg/m2JR Hugo Moser Work Phone: [facility]11-01-2023 13:51-0400 Diastolic blood isdbhrer47 mm[Hg]JR Hugo Moser Work Phone: [facility]11-01-2023 13:51-0400 Heart rate83 /minJR Hugo Moser Work Phone: [facility]11-01-2023 13:51-0400 Respiratory rate14 /minJR Hugo Moser Work Phone: [facility]11-01-2023 13:51-0400 SaO2% (BldA) [Mass fraction]98 %JR Hugo Moser Work Phone: [facility]11-01-2023 13:51-0400 Systolic blood mm[Hg]JR Hugo Moser Work Phone: 1(690)760-[address] [place], [place] [address]11-01-2023 12:00-0400 Body flcczkeftti66.8 [degF]JR Hugo Moser Work Phone: 2(206)963-[address] [place], [place] [address]00311-01-2023 06:00-0400 Body ufklop41.5 kgJR Hugo Moser Work Phone: 1(265)480-[address] [place], [place] [address]10-31-2023 15:37-0400 Inhaled oxygen flow rate6 L/minJAlex Moser Work Phone: 1(710)[address]10-31-2023 15:12-0400 Body pxayha663.18 cmJR Hugo Moser Work Phone: 1(885)[address]10-31-2023 15:12-0400 Body mass index (BMI) [Ratio]30.4 kg/m2JR Hugo Moser Work Phone: 1(641)415-[address] [place] [address] Encounters Encounter DateEncounter TypeCare ProviderFacilityStart: 11-09-2024 End: 49-99-1489Hjdfkw outpatient visit 25 minutesStephanie Brown MD Work Phone: [facility] HospitalComment on above:Paroxysmal atrial fibrillation (Multi) (Primary Dx); History of cardiomyopathy; Mild tricuspid regurgitation; AV block, Mobitz II; Pacemaker; Mixed hyperlipidemia; Diabetes mellitus type II, non insulin dependent (Multi); Obesity (BMI 30.0-34.9); Never smoked tobacco; High risk medication useStart: 11-09-2024 End: 34-81-4191afozzfvqrtIHJBYG M IBRAHIMProtestant Hospital AmbulatoryStart: 10-18-2024 End: 03-77-7723ixwrkrttpjLttzvv IbrahimFacility:[facility] Centertart: 35-85-1667Ihu-patient / Non-visitGildardo Teran-Heart Rhythm ClinicStart: 10-14-2024 End: 31-82-7070Psfmsd outpatient visit 25 minutesAlljose Arevalo Petznick DO Work Phone: [facility] 230Comment on above:Type 2 diabetes mell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, with long-term current use of insulin (HCC)Start: 10-14-2024 End: 82-34-7522gvqxxpvbleDTUZLSO Mickey PETZNICKNot AvailableStart: 08-02-2024 End: 93-46-6028Msnnunjvf encounterAllison Mickey Petznick DO Work Phone: [facility] 230Comment on above:Blood Sugar Problem Start: 07-19-2024 End: 76-14-9665ekaraytspgQqbblw IbrahimRehoboth [facility] Centertart: 07-19-2024 End: 57-42-1300Qufasj outpatient visit 25 minutesAllison Mickey Petznick DO Work Phone: [facility] 230Comment on above:Type 2 diabetes mell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, with long-term current use of insulin (HCC) ([facility]/HCC) (Primary Dx); Type 2 diabetes mell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, without long-term current use of insulin (HCC) (CMS/HCC)Start: 07-19-2024 End: 43-97-6578jxsxdegusgSHROIXO M PETZNICKNot AvailableStart: 07-18-2024 End: 98-69-9774Hwinzyfoo encounterAllison M Petznick DO Work Phone: [facility] 230Comment on above:Appointment ConfirmationStart: 04-18-2024 End: 60-70-3378Dkfzcw outpatient visit 25 minutesAllison Mcikey Petznick DO Work Phone: [facility] 230Comment on above:Type 2 diabetes mell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, without long-term current use of insulin (HCC) (CMS/HCC)Start: 04-18-2024 End: 64-66-4707yvgjczaxtdOHLYJCA Mickey PETZNICKNot AvailableStart: 04-15-2024 End: 22-56-3235Zkwlqtorq encounterAllison M Petznick DO Work Phone: [facility] FM 230Comment on above:Appointment ConfirmationStart: 04-15-2024 End: 71-17-2563Xpxprts encounter procedureCharmolina Moser JR Work Phone: [facility]-Pacemaker CheckStart: 04-15-2024 End: 17-40-9059drwcjbdiudUtmxsoz L Valone JR Work Phone: [facility] Work Phone: Start: 35-48-7325Dpd-patient / Non-visitCharmolina Moser JR Work Phone: [facility]-Heart Rhythm ClinicStart: 03-09-2024 End: 68-42-0441Pkcxdv outpatient visit 25 minutesStephanie Brown MD Work Phone: [facility] CenterlandsComment on above:Pacemaker (Primary Dx); AV block, Mobitz II; Mixed hyperlipidemia; Paroxysmal atrial fibrillation (Multi); Mild tricuspid regurgitation; Diabetes mellitus type II, non insulin dependent (Multi); BMI 28.0-28.9,adult; Never smoked tobacco; OverweightStart: 03-09-2024 End: 14-99-2825nqyszxvhxtAVHFND M [facility] AmbulatoryStart: 02-17-2024 End: 55-70-0000Rodcab flowsheetJr. Gini Cárdenas DO Work Phone: n[facility] ORTHOStart: 02-17-2024 End: 74-72-7199Sjsrhx flowsheetJr. Gini Cárdenas DO Work Phone: NONN [facility] ORTHOStart: 02-17-2024 End: 26-17-9213Wdhqvf outpatient visit 15 minutesJr. Gini Cárdenas DO Work Phone: [facility] ORTHOComment on above:Rotator cuff arthropathy, right (Primary Dx); Shoulder arthritisStart: 02-17-2024 End: 23-97-3642clxqyeungnPM., GINI CÁRDENASNot AvailableStart: 01-18-2024 End: 09-41-4088Profjb flowsheetVeda Rome DO Work Phone: [facility] FM 230Start: 01-18-2024 End: 41-14-5035Tkwdzq flowsDavid Rome DO Work Phone: [facility] FM 230Start: 01-18-2024 End: 37-80-4552Navjry outpatient visit 25 minutesVeda Rome DO Work Phone: [facility] 230Comment on above:Type 2 diabetes mell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, without long-term current use of insulin (HCC) (CMS/[facility]); Type 2 diabetes mellitus with hyperglycemia, without long-term current use of insulin ([facility])Start: 01-18-2024 End: 34-30-1761inqsishuzaJICEUDO M PETZNICKNot AvailableStart: 01-15-2024 End: 60-06-0626uoklpqypdiCaxhvi [facility] CenterFacility:[facility] Centertart: 67-57-2052Izo-patient / Non-visitCritical Access Hospital Physician Group-Heart Rhythm ClinicStart: 01-14-2024 End: 34-85-3787Aibyszpsk encounterVeda Rome DO Work Phone: [facility] 230Start: 12-10-2023 End: 57-88-8489Fjzhec flowsMay Calderon DPM Work Phone: [facility] CI PODIATRYStart: 12-10-2023 End: 14-78-2870Bmkukt flowsMay Calderon DPM Work Phone: [facility] CI PODIATRYStart: 12-10-2023 End: 06-44-3529Nvxelkw encounter procedureKennedy Calderon DPM Work Phone: [facility] CI PODIATRYComment on above:Type 2 diabetes mellitus without complication, unspecified whether long term care phlebotomist insulin use ([facility]) (Primary Dx); Pain due to onychomycosis of toenails of both feetStart: 12-10-2023 End: 53-16-5691aahpbojhfnSNWPBPZR A BROWNNot AvailableStart: 12-03-2023 End: 58-45-4828Trqekl outpatient new 45 minutesVeda Rome DO Work Phone: n[facility] FM 230Comment on above:Type 2 diabetes mell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, without long-term current use of insulin (HCC) (CMS/HCC) (Primary Dx); Type 2 diabetes mellitus with hyperglycemia, without long-term current use of insulin (CMS/HCC)Start: 12-03-2023 End: 76-17-9721wjmrovxqqmPBWIORP M PETZNICKNot AvailableStart: 12-02-2023 End: 44-01-4840Zgvpyngff encounterVeda Rome DO Work Phone: n[facility] FM 230Start: 50-06-8572Mgo-patient / Non-visitCritical Access Hospital Physician Group-Heart Rhythm ClinicStart: 10-16-2023 End: 18-84-3634tilztxswogWK Charles L Valone Work Phone: [facility] Work Phone: Start: 10-16-2023 End: 32-32-5992Fijjxul encounter procedureJAlex Moser Work Phone: [facility]-Pacemaker CheckStart: 07-24-2023 End: 64-36-4360Rahizt outpatient visit 25 minutesHenrry Purvis MD Work Phone: [facility] CenterComment on above:Non-ischemic cardiomyopathy (Multi) (Primary Dx); AV block, Mobitz II; Pacemaker; Mixed hyperlipidemia; BMI 30.0-30.9,adultStart: 04-15-2023 End: 94-00-0894mnqwziixhyPA Charles L Valone Work Phone: [facility] Work Phone: Start: 04-15-2023 End: 35-74-8469Mncymmq encounter procedureJR Hugo Moser Work Phone: [facility]-Pacemaker CheckStart: 04-08-2023 End: 83-80-2709Ztypxv outpatient new 45 minutesNegro BROOKS Work Phone: noms [facility] ORTHOComment on above:Acute pain of right shoulder; Rotator cuff arthropathy, right; Arthritis of right acromioclavicular jointStart: 01-14-2023 End: 57-16-3991Ylezrp outpatient visit 25 minutesHenrry Purvis MD Work Phone: uh FirelandsComment on above:AV block, Mobitz II; Pacemaker; Obesity (BMI 30.0-34.9)Start: 01-08-2023 End: 77-11-8306duggsgwdnpXV Hugo Josy Moser Work Phone: [facility] Work Phone: Start: 01-08-2023 End: 59-28-8803Akgnntv encounter procedureJR Hugo Ciro Work Phone: [facility] [place] Work Phone: Start: 12-28-2022 End: 38-76-9673Wxxzlshzyr and management of inpatientJR Hugo Moser Work Phone: [facility] Work Phone: Start: 05-19-2022 End: 42-10-1696gtsnyadiynYA HUGO MOSERFacility:K5Wsyxh: 01-22-2022 End: 34-09-2796gcyepdmwpeMG HUGO MOSERFacility:O4Rnqtd: 24-73-4845Hkzjheuzq for general adult medical examination without abnormal findingsDR HUGO MOSER [facility]tart: 10-08-2021 End: 15-07-5699royeuhebuuID HUGO MOSERFacility:O7Jpioj: 10-08-2021 End: 97-00-9220Akqlegbpk for general adult medical examination without abnormal findingsDR HUGO MOSERFacility:H1 Procedures DateProcedureProcedure DetailPerforming ClinicianStart: 23-80-9989Uhynhsstlx glycosylated z9gXvymizqjose Rome DO Work Phone: Start: 02-26-4987Nnsrvdwevg glycosylated a3eHixwjjeVeda Salazarick DO Work Phone: Start: 58-67-4548Qnrpcxdkpu glycosylated p8oWuwaidkVeda Rome DO Work Phone: Start: 28-02-3630Kox routine ecg w/least 12 lds w/i&r Stephanie Brown MD Work Phone: Start: 68-42-6058Ydbqfpiwqe glycosylated h5cJdqusguVeda Rome DO Work Phone: Start: 26-92-0058Sqkuk chest X-rayJR Hugo Moser Work Phone: Start: 04-08-2023 End: 20-47-8707Lcffprsdirjsya aspir&/inj major jt/bursa w/o usMatthew J Kevin BROOKS Work Phone: Start: 38-07-2408Peaea chest X-rayJR Hugo Moser Work Phone: Start: 00-44-3378Nynar chest X-rayJR Hugo Moser Work Phone: Start: 77-49-2394Hyete chest X-rayJR Hugo Moser Work Phone: Start: 32-99-5197Culghryziugy of cardiac pacemakerJR Hugo Moser Work Phone: Plan of Treatment DateCare ActivityDetailAuthorStart: 06-20-2025 End: 65-20-1001Roqimgb encounter uyhaphozu12/21/2026 11:10 AM EDT Office Visit [facility] [address] [place] [address] Stephanie Brown MD [address] [place] [address] [facility] CenterStart: 01-13-2025 End: 05-95-5264Rugmwpj encounter evngowuje39/14/2025 8:45 AM EST Office Visit ROSE MARIE Roque [facility] [address] [place] [address] Veda Rome, DO [address] [place] [address] [facility] [place] [facility] 230 Start: 11-09-2024 End: 63-01-1685Fqvasfq aminotransferase [Enzymatic activity/volume] in Serum or Plasma by With P-5'-PAlanine Aminotransferase Lab Routine Mixed hyperlipidemia Expected: 11/09/2024 (Approximate), Expires: 11/09/2025[facility] Service Area Work Phone: Comment on above:Expected: 11/09/2024 (Approximate), Expires: 11/09/2025Start: 11-09-2024 End: 53-65-9733Poqqt metabolic 2000 panel - Serum or PlasmaBasic Metabolic Panel Lab Routine History of cardiomyopathy Expected: 11/09/2024 (Approximate), Expi res: 11/09/2025UnLake[facility] Work Phone: Comment on above:Expected: 11/09/2024 (Approximate), Expires: 11/09/2025Start: 11-09-2024 End: 68-88-3780YME panel - Blood by Automated countCBC Lab Routine History of cardiomyopathy Expected: 11/09/2024 (Approximate), Expires: 11/09/2025[facility] Work Phone: Comment on above:Expected: 11/09/2024 (Approximate), Expires: 11/09/2025Start: 11-09-2024 End: 42-21-8740Kbkcg 1996 panel - Serum or PlasmaLipid Panel Lab Routine Mixed hyperlipidemia Expected: 11/09/2024 (Approximate), Expires: 11/09/2025[facility] Work Phone: Comment on above:Expected: 11/09/2024 (Approximate), Expires: 11/09/2025Start: 11-09-2024 End: 87-57-1048Atgwxjv encounter cnzpodaod89/10/2025 11:00 AM EDT Office Visit [place] [address] [facility] [address] [place] [address] Stephanie Brown MD [address] [facility] [place] [address] [facility] CenterStart: 26-72-8297GZJYH-19 Vaccine ( season)COVID-19 Vaccine ( season)[facility] Start: 04-92-5758Afcpjzttj vaccinationNOSD HealthcareStart: 10-14-2024 End: 22-80-2414Pjbfqjb encounter tjvbsigaa45/15/2025 9:45 AM EDT Office Visit [facility] [address] [place] [phone] eVda Rome, DO [address] [place] [address] [facility] 230Start: 07-19-2024 End: 83-43-8198Itltiyh encounter procedureNOEASTERN [facility] 230Comment on above:Type 2 diabetes mell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, without long-term current use of insulin (HCC) ([facility])Start: 04-18-2024 End: 97-55-6633Wrieyff encounter otozgwena23/17/2025 1:00 PM EST Office Visit [facility] [address] [place] [phone] Veda Rome, DO [address] [place] [address] [facility] 230Start: 03-09-2024 End: 90-49-5280Uxwdvir encounter cvumnpoiv73/08/2025 10:50 AM EST Office Visit [facility] [address] [facility] [place] [address] Stephanie Brown [facility] [address] [facility] [facility] [address] [place] [address] [facility] CenterStart: 02-17-2024 End: 45-79-1347Ayakcxr encounter procedureNOMS SWS ORTHOComment on above:Arrived Start: 01-15-2024 End: 44-87-3130Yimvlia encounter jcgwtekpk41/15/2024 2:00 PM EST Office Visit [facility] [address] [place] [phone] Veda Rome, DO [address] [place] [address] [facility] 230Start: 12-10-2023 End: 54-25-4612Gguohra encounter procedureNOMS CI PODIATRYComment on above:Type 2 diabetes mellitus without complication, unspecified whether halfway insulin use ([facility]) (Primary Dx); Pain due to onychomycosis of toenails of both feetStart: 12-03-2023 End: 95-91-4733Hblevko encounter fmzrjvyur21/03/2024 2:00 PM EDT Office Visit [facility] [address] [place] [phone] Veda Rome, DO [address] [place] [address] [facility] 230Start: 26-77-8062MAAVJ-19 Vaccine ( season)COVID-19 Vaccine ( season)[facility]Start: 88-56-3750Xfxihfbmp vaccinationGalion Hospital Start: 07-24-2023 End: 37-42-5668Sfiflnd encounter pmtphugnu68/24/2024 1:40 PM EDT Office Visit [facility] [address] [facility] [place] [address] Henrry Purvis MD [address] [place] [address] [facility]: 05-11-2023 End: 23-35-2824Pswbjus encounter zqnxzielj69/11/2024 10:45 AM EDT Office Visit [facility] [address] [place] [phone] Jr. Gini Cárdenas, DO [address] [place] [address] [facility] ORTHOStart: 22-72-2528GqjvlrmfdTrumbull Regional Medical Centertart: 87-17-3346XisyyzcdbTrumbull Regional Medical Centertart: 88-89-9515Jzhhakzgs of Pacemaker Lead into Right Atrium, Percutaneous Approach Insertion of Pacemaker Lead into Right Atrium, Percutaneous ApproachTrumbull Regional Medical Centertart: 39-15-6344Tfwemumpd of Pacemaker Lead into Right Ventricle, Percutaneous ApproachInsertion of Pacemaker Lead into Right Ventricle, Percutaneous ApproachTrumbull Regional Medical Centertart: 80-39-4457Avyfdebrn of Pacemaker, Dual Chamber into Chest Subcutaneous Tissue and Fascia, Open ApproachInsertion of Pacemaker, Dual Chamber into Chest Subcutaneous Tissue and Fascia, Open ApproachWexner Medical Center Start: 80-93-3102Xgknczee admissionTrumbull Regional Medical Centertart: 31-65-3365Qbfvncfl to cardiologistTrumbull Regional Medical Centertart: 71-39-1940IWTHP-19 Vaccine ( season)COVID-19 Vaccine ( season)[facility]: 80-50-3297Fnefdpayu vaccination Influenza Vaccine (#1)[facility]: 48-65-4046UYFZJ-19 Vaccine (4 - Moderna series)COVID-19 Vaccine (4 - Moderna series)[facility]: 39-88-6210Doowprokxwal vaccinationPneumococcal Vaccine (2 of 2 - PCV)[facility]: 05-18-2019 Pneumococcal Vaccine: 65+ Years (2 - PCV)Pneumococcal Vaccine: 65+ Years (2 - PCV)[facility]: 38-20-0892Epsmmgbutsys Vaccine: 65+ Years (2 of 2 - PCV)Pneumococcal Vaccine: 65+ Years (2 of 2 - PCV)[facility]: 24-98-8393QYT High Risk: (Elderly (60+) or Population) (1 - 1-dose 75+ series)RSV High Risk: (Elderly (60+) or Population) (1 - 1-dose 75+ series)[facility]: 89-48-3043ZHF patients and/or patients aged 60+ years (1 - 1-dose 60+ series)RSV patients and/or patients aged 60+ years (1 - 1-dose 60+ series)[facility]: 62-61-3923Dyseup Vaccines (1 of 2)Zoster Vaccines (1 of 2)[facility]: 08-18-1962 DTaP/Tdap/Td Vaccines (1 - Tdap)DTaP/Tdap/Td Vaccines (1 - Tdap)[facility]: 45-28-5634Klsdb screening for proteinDiabetes: Urine Protein ScreeningUnOhioHealth Berger Hospital: 08-18-1950 Diabetic foot examinationDiabetes: Foot ExamUnLakeHealth TriPoint Medical Center Start: 67-88-7152Tujvxrrc screeningDiabetes: Retinopathy ScreeningUnOhioHealth Berger Hospital: 20-35-4756Ommjenqtxq A1c measurementDiabetes: Hemoglobin E8CHgegprvqukOhioHealth Berger Hospital: 90-39-4316Lipxf panelLipid PanelUnOhioHealth Berger Hospital: 06-19-1940Medicare Annual Wellness VisitMedicare Annual Wellness Visit (AWV)[facility]: 76-13-2327Ltiap screening for proteinDiabetes: Urine Protein ScreeningUnLakeHealth TriPoint Medical CenterPatient EducationClindamycin (Systemic)[facility] Work Phone: [facility] referral[facility] Work Phone: XR Shoulder - right 2 ViewsXR shoulder 2+ views right Imaging Routine Acute pain of right shoulder 04/08/2023 1:21 PM [facility] Work Phone: Immunizations Immunization DateImmunizationNotesCare IuseefcdBqwrswur06-85-5035Ppvcekl COVID- 19 vaccine, bivalent, blue cap/goff label *Check age/dose*Henrry Purvis MD Work Phone: [facility]12-02-2021influenza, injectable, quadrivalent, preservative Rona Purvis MD Work Phone: [facility] Work Phone: [phone]gxsqif virus vaccine, unspecified formulationHenrry Purvis MD Work Phone: [facility] Work Phone: [phone]judpzm, injectable, quadrivalent, preservative Rona Purvis MD Work Phone: [facility] Work Phone: [phone] polysaccharide vaccine, 23 valentHenrry Purvis MD Work Phone: [facility] Work Phone: Payers DatePayer CategoryPayerPolicy [id number] Health InsuranceAARP [id number] 2023Medicare supplemental policy (as second payer)[employer] Member Subscriber Plan / Payer (Effective 2022-Present) Name: Emmanuel Jiménez Relation to Subscriber: Self Name: Emmanuel Jiménez Payer ID:Not on file Group ID: Not on file Type: Not on file Address: [address] [place] [id number] [id number] 2005Medicare [id number] [id number] 1960 [id number] 2..840.1.672196.3.579.2.593 [id number] 2.840.1.762110.3.579.2.09834-15-0127Cqrmkfk1707563 2.840.1.001002.3.57[id number] 2.16.840.1.630027.3.579.[id number] 2.16840.1.103155.3.57[id number] 2.16840.1.931015.3.579.[id number] 2.16.840.1.902300.3.579.2.481883-48-9149Wpmpzjx3553467 2.16840.1.212034.3.579.2.062009-97-3791Wmsakcx6508675 2.16.840.1.286067.3.579.2.865432-19-4538Rrrsnqs9820340 2.16840.1.367683.3.579.2.151168-73-0100Ccrltwv450830526 2.16.840.1.561029.3.579.2.49[id number] 2.16.840.1.27[id number] 2.16.840.1.093880.3.579.2.531 [id number] 2.16.840.1.3[id number] 2.16.840.1.8715[id number] 2.16.840.1.741035.3.579.2.531 Social History DateTypeDetailFacilityStart: 12-30-2022 End: 27-48-6331Ttatpax smoking status NHISNever smoked tobacco (finding) [facility]ertart: 65-92-5813Qwo Assigned At BirthMale [facility] Centertart: 01-14-2023 End: 49-02-8043Txfmlxa use and exposureSmokeless tobacco non-userGalion Hospital Work Phone: Start: 01-14-2023 End: 82-21-6750Htczero intakeLifetime non-drinker (finding)[facility] Work Phone: Start: 01-14-2023 End: 50-19-5938Rogggnz of Social functionUnLakeHealth TriPoint Medical Center Work Phone: Start: 01-14-2023 End: 77-54-9951Laexjka use panelGalion Hospital Work Phone: Start: 50-48-1615Qgt Assigned At BirthNot on file [facility] Work Phone: Start: 01-04-2023 End: 96-45-6650Wuopcial to SARS-CoV-2 (event)Not sureUnAscension [facility]on Medical Center AustinvelandStart: 04-08-2023 End: 16-30-5487Gjinbqs intakeCurrent drinker of alcohol (finding)[facility] Start: 01-19-2024 End: 61-74-1986QesVytw (finding)[facility] Centertart: 01-18-2024 End: 95-41-7521Omifcdkuq beverage intakeEx-drinker (finding)[facility] CenterHow often to you have a drink containing alcohol?NeverNOSD HealthcareStart: 37-53-8700Qek many standard drinks containing alcohol do you have on a typical day?Patient does not drinkUniversity Health Lakewood Medical Center Medical Equipment Procedure CodeEquipment CodeEquipment Original TextEquipment IdentifierDates Insertion, pacemakerEndocardial pacing lead ()[id number] FDAStart: 38-91-1045Tzmslhqdm, pacemakerEndocardial pacing lead()[id number] FDA Start: 25-80-8811Ytznwjrfo, pacemakerDual-chamber implantable pacemaker, rate-responsive()[id number] FDAStart: each by In Vitro route See administration instructions Check [id number]: each by In Vitro route 2 (two) times a [id number]: 08-11-2024 Goals DatePatient GoalDesired Activity/State Functional Status NccnOgvvgqkuudYfzppwFsznrzzi97-33-7453Rwdolpd Health Questionnaire 2 item (PHQ- 2) [Reported][facility] CenterMnvaxgrjcg13-93-0606Ivywfth Health Questionnaire 2 item (PHQ- 2) [Reported][facility] CenterBlrxkhxmzv86-24-0199Sacimsvdqy statusPatient at Baseline [facility] Work Phone: Mental Status XdfcOtdcnnouriQsxwirGxlfewlq77-22-3800Hdtrlsknu functionCognitive Status Patient at BaselineOhiohealth Pickerington [facility] Hospital Work Phone: Clinical Notes 12-28-2022 to 11-09-2024 Note Date & AvkxOrciKguwltca14-36-2731 History of Present illness Narrative* Stephanie Brown [...] mild tricuspid regurgitation without pulmonary hypertension. Assessment/recommendations: 0-zthx-emuje AV block status post permanent pacemaker 2022 [...] exam, discussion and plan. documented in this [facility] Work Phone: [phone] Instructions* Patient Instructions* Karuna Ashton LPN - [...] sent through Care Everywhere. * Heart-healthy diet (Azeri) documented in this [facility] Work Phone: [phone] 456-823008-15-2025 History of Present illness Narrative* Veda Rome [...] 1,000 mg BID with meals PO Labs [facility] HEMOGLOBIN A1C/HEMOGLOBIN.TOTAL:MFR:PT:BLD:QN: 8.7 Outpatient prescription Medication marked [...] with the patient today. documented in this encounterUniversity Health Lakewood Medical CenterOdpwbsxcle21-38-2723 Evaluation note* Diagnosis Type 2 diabetes mellitus [...] of insulin (HCC) documented in this encounter [facility] CenterFmctbnkzfb59-46-8626 Telephone encounter Note* Telephone Encounter - Elba [...] like to know what he should do. [facility] CenterQcwckwizmx39-07-0813 Miscellaneous Notes* Telephone Encounter - Elba Platt [...] what he should do. documented in this encounterUniversity Health Lakewood Medical CenterLmiyjamjgb02-43-2649 History of Present illness Narrative* Veda Rome DO - 07/19/2024 12:17 PM EDTAssociated Problem(s): Type 2 diabetes mell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, with long-term current use of insulin (HCC) ([facility]) During the appointment today all [...] with long-term current use of insulin (HCC) ([facility]) Social History Tobacco Use Smoking [...] 1,000 mg BID with meals PO Labs [facility] HEMOGLOBIN A1C/HEMOGLOBIN.TOTAL:MFR:PT:BLD:QN: 9.0 Outpatient prescription Medication marked as long-term Patient-reported The ASCVD Risk score (Nelson DK, et al., 2019) failed to calculate [...] with long-term current use of insulin (HCC) ([facility]) - Primary During the appointment [...] they have any problems or questions. Emmanuel Fuquay Varina blood sugars are worsening. , Instructed on [...] with the patient today. documented in this encounterUniversity Health Lakewood Medical CenterSkaiecvpsp95-48-7032 Evaluation note* Diagnosis Type 2 diabetes mell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, without long-term current use of insulin (HCC) ([facility]) Type 2 diabetes mell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, with long-term current use of insulin (HCC) ([facility])- Primary Type 2 diabetes mell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, without long-term current use of insulin (HCC) ([facility]) documented in this encounter [facility] CenterOnlbntbbir71-89-3473 Telephone encounter Note* Telephone Encounter - Elba Platt - 07/18/2024 2:54 PM EDT P/c appointment reminder. Pt confirmed [facility] CenterGswhjlelnh93-89-5367 Miscellaneous Notes* Telephone Encounter - Elba Platt - 07/18/2024 2:54 PM EDT P/c appointment reminder. Pt confirmed documented in this encounterUniversity Health Lakewood Medical CenterZdsdgbgaqr54-21-8067 History of Present illness Narrative* Veda Rome DO - 04/18/2024 2:07 PM ESTAssociated Problem(s): Type 2 diabetes mell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, without long-term current use of insulin (HCC) ([facility]) During the appointment today all [...] osteoarthritis of hand DVT (deep venous thrombosis) ([facility]) Non-ischemic cardiomyopathy ([facility]) Pacemaker Type 2 diabetes mell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, without long-term current use of insulin (HCC) ([facility]) Social History Tobacco Use Smoking [...] 1,000 mg BID with meals PO Labs [facility] HEMOGLOBIN A1C/HEMOGLOBIN.TOTAL:MFR:PT:BLD:QN: 8.1 Outpatient prescription Medication marked as long-term Patient-reported The ASCVD Risk score (Nelson DK, et al., 2019) failed to calculate [...] disease, without long-term current use of insulin ([facility]) ([facility]) During the appointment today all [...] with the patient today. documented in this encounterUniversity Health Lakewood Medical CenterZxptopbitu04-27-6446 Telephone encounter Note* Telephone Encounter - Elba Platt - 04/15/2024 1:06 PM EST LVM appointment reminder [facility] CenterKmqoykesxx17-22-7353 Miscellaneous Notes* Telephone Encounter - Elba Platt - 04/15/2024 1:06 PM EST LVM appointment reminder documented in this encounterUniversity Health Lakewood Medical CenterMwljmhcfca35-26-9315 History of Present illness Narrative* Stephanie Brown [...] been followed by h is PCP. Assessment/recommendations: 6-kfum-alybb AV block status post permanent pacemaker 2022 [...] exam, discussion and plan. [facility] Work Phone: 1([phone]) 760-487801-08-2025 Instructions* Patient Instructions* Ashtyn Rendon RN - [...] follow up per routine [facility] Work Phone: 1(259) 783-396512-18-2024 History of Present illness Narrative* Jr. Gini [...] for requiring urgent evaluation. documented in this encounterUniversity Health Lakewood Medical CenterDndahebcwa96-79-0520 History of Present illness Narrative* Veda Rome DO - 01/18/2024 12:37 PM ESTAssociated Problem(s): Type 2 diabetes mellitus with hyperglycemia, without long-term current use of insulin ([facility]) During the appointment today all [...] without long-term current use of insulin (HCC) ([facility]) Social History Tobacco Use Smoking [...] hyperglycemia, without long-term current use of insulin ([facility]) During the appointment today all [...] without long-term current use of insulin (HCC) ([facility]) Relevant Medications insulin glargine (Lantus [...] with the patient today. documented in this [facility]11-14-2024 Telephone encounter Note* Telephone Encounter - Clara Ramos LPN - 01/14/2024 10:19 AM EST noted [facility] CenterZjiliksoac37-92-4764 Miscellaneous Notes* Telephone Encounter - Clara Ramos LPN - 01/14/2024 10:19 AM EST noted * Telephone Encounter - Elba Platt - 01/14/2024 10:11 AM EST P/c to remind pt of appointment. Pt had to reschedule because his has testing all day tomorrow. Rescheduled for Thursday at 9:15. He voiced understanding documented in this encounterUniversity Health Lakewood Medical CenterKfzapbznsl16-19-4747 Telephone encounter Note* Telephone Encounter - Elba Platt - 01/14/2024 10:11 AM EST P/c to remind pt of appointment. Pt had to reschedule because his has testing all day tomorrow. Rescheduled for Thursday at 9:15. He voiced understanding [facility] CenterXedvnhauzd26-24-2417 History of Present illness Narrative* Kennedy Calderon [...] Negative palpable pedal pulses bilaterally NEURO: 5.07 Orlando Claudia monofilament test intact to digits and forefoot bilaterally 125Hz tuning fork diminished to 1st MPJ bilaterally ORTHO: Positive pain on palpation to nails 1 through 10 ASSESSMENT 1. Type 2 diabetes mellitus without complication, unspecified whether long term care phlebotomist insulin use ([facility]) 2. Pain due to onychomycosis [...] gear. Kennedy Calderon DPM documented in this encounterUniversity Health Lakewood Medical CenterAjxkmxahze81-06-2771 History of Present illness Narrative* Veda Rome DO - 12/03/2023 4:02 PM EDTAssociated Problem(s): Type 2 diabetes mellitus with hyperglycemia, without long-term current use of insulin ([facility]) During the appointment today all [...] occasion (cinnamon toast crunch- low sugar) Lunch: [place] (ham), fruit (peaches, pears, melon) Dinner: Varies- [...] without long-term current use of insulin (HCC) ([facility]) Social History Tobacco Use Smoking [...] hyperglycemia, without long-term current use of insulin ([facility]) During the appointment today all [...] they have any problems or questions. Emmanuel Fuquay Varina blood sugars are worsening. , Discussed dietary [...] disease, without long-term current use of insulin ([facility]) ([facility]) - Primary Relevant Medications empagliflozin [...] with the patient today. documented in this encounterUniversity Health Lakewood Medical CenterLrxbugatby42-25-3849 Telephone encounter Note* Telephone Encounter - Elba Platt - 12/02/2023 12:50 PM EDT Pt's answered the phone. Reminded her of her 's appointment tomorrow with Dr. Mccollum. voiced understanding [facility] CenterHpksdeinfq09-06-6047 Miscellaneous Notes* Telephone Encounter - Elba Platt - 12/02/2023 12:50 PM EDT Pt's answered the phone. Reminded her of her 's appointment tomorrow with Dr. Mccollum. voiced understanding documented in this [facility]05-24-2024 History of Present illness Narrative* Henrry Purvis [...] exam, discussion and plan. documented in this [facility] Work Phone: 1(871) 760-711405-24-2024 Instructions* Patient Instructions* Sal Henson MA - [...] time of your visit. documented in this [facility] Work Phone: 1(511) 493-267502-07-2024 History of Present illness Narrative* TODD Driver [...] spacewith 2ml of 2 % lidocaine (Code 36437 RT) Procedure, treatment alternatives, risks and benefits [...] urgent evaluation. TODD Driver documented in this encounterUniversity Health Lakewood Medical CenterEhveysbzkn72-56-1128 History of Present illness Narrative* Henrry Purvis [...] 3. Obesity (BMI 30.0-34.9) documented [facility] encounterGal[facility] Work Phone: 1([phone]) 266-301811-15-2023 Instructions* Patient Instructions* Lupe Burns LPN - [...] follow up per routine documented in [facility] encounterGal[facility] Work Phone: 1(276) 190-963111-01-2023 Progress note Author Henrry Purvis [facility] December 31, 2022 10:33amNote Date/TimeNov2022 10:25[place] [address] Cardiology Progress Note Signed Patient: Emmanuel Jiménez MR#: [id number] : 1940 Acct:[id number] Age/Sex: 82 / M Adm Date: 3 Loc: 3T Room: [address] [place] [address] Type: ADM IN Attending Dr: Katie Osborne [...] % (Auto) 61.2 Lymph % (Auto) 27.7 [place] % (Auto) 8.9 Eos % (Auto) 1.6 Baso % (Auto) 0.6 Nucleat RBC Rel Count 0.0 Neut # (Auto) 4.1 Lymph # (Auto) 1.9 [place] # (Auto) 0.6 Eos # (Auto) 0.1 Baso # (Auto) 0.0 PHA Creatinine Clear Sodium Potassium Chloride Carbon Dioxide Anion Gap BUN Creatinine Est GFR (CKD-EPI) Glucose POC Glucose 206 183 Calcium Magnesium 12/31/22 06:36 Corrected WBC Uncorrected WBC Count RBC Hgb Hct MCV MCH MCHC RDW Plt Count MPV Neut % (Auto) Lymph % (Auto) [place] % (Auto) Eos % (Auto) Baso % (Auto) Nucleat RBC Rel Count Neut # (Auto) Lymph # (Auto) [place] # (Auto) Eos # (Auto) Baso # [...] clinic as scheduled. Follow-up with his primary sewer digger Dr. Hugo Moser henceforth Documented By: Henrry Purvis MD 102 Signed By: <Electronically signed by MD Henrry Purvis> 12/31/22 1033 [facility] Work Phone: 1(311) 458-506410-31-2023 Progress note Author Katie Osborne [facility] December 30, 2022 2:12pmNote Date/TimeOct2022 2:12[place] [address] Hospitalist Progress Note Signed Patient: Emmanuel Jiménez MR#: [id number] : 1940 Acct:[id number] Age/Sex: 82 / M Adm Date: 3 Loc: 3T Room: [address] [place] [address] Type: ADM IN Attending Dr: Katie Osborne MD Copies to: ~ Date of Service: 12/30/2022 Subjective Subjective Narrative: Patient was seen and evaluated at bedside this morning. computer training specialist was reviewed, patient continued to have heart [...] Plan: ? Patient's baseline is unknown, at [place] his creatinine is 1.6, today here it is 1.4 ? Patient did receive atropine at [place], his heart rate has been improved while [...] <Electronically signed by Katie Osborne MD> 12/30/22 [facility]2 [facility] Work Phone: 1(253) 710-224010-30-2023 Progress note Author Henrry Purvis [facility] December 29, 2022 2:16pmNote Date/TimeOct2022 2:16pm[place] [address] Cardiology Progress Note Signed Patient: Emmanuel Jiménez MR#: [id number] : 1940 Acct:[id number] Age/Sex: 82 / M Adm Date: 3 Loc: Room: [address] [place] [address] Type: ADM IN Attending Dr: Katie Osborne [...] AV block. Intermittently he is conducting ky ykq-ay-gkbhtitdxw. No observed manifestations of complete heart block. [...] % (Auto) 48.1 Lymph % (Auto) 41.3 [place] % (Auto) 8.4 Eos % (Auto) 1.4 Baso % (Auto) 0.8 Nucleat RBC Rel Count 0.1 Neut # (Auto) 3.6 Lymph # (Auto) 3.1 [place] # (Auto) 0.6 Eos # (Auto) 0.1 [...] MPV Neut % (Auto) Lymph % (Auto) [place] % (Auto) Eos % (Auto) Baso % (Auto) Nucleat RBC Rel Count Neut # (Auto) Lymph # (Auto) [place] # (Auto) Eos # (Auto) Baso # [...] signed by MD Henrry Purvis> 12/29/22 [address] [facility] Work Phone: 1([phone]) 655-622410-30-2023 Progress note Author Katie Osborne [facility] December 29, 2022 1:57pmNote Date/TimeOct2022 1:57pmLe[place] [address] Hospitalist Progress Note Signed Patient: Emmanuel Jiménez MR#: [id number] : 1940 Acct:[id number] Age/Sex: 82 / M Adm Date: 3 Loc: 3T Room: [address] [place] [address] Type: ADM IN Attending Dr: Katie Osborne MD Copies to: ~ Date of Service: 12/29/2022 Subjective Subjective Narrative: Patient was seen and evaluated at bedside this morning. computer training specialist was reviewed, patient continued to have heart [...] Plan: ? Patient's baseline is unknown, at [place] his creatinine is 1.6, today here it is 1.4 ? Patient did receive atropine at [place], his heart rate has been improved while [...] <Electronically signed by Katie Osborne MD> 12/29/[address] [place] [address] Work Phone: [phone] 600-346410-29-2023 Consult note Author Haylee Benedict [facility] December 28, 2022 7:25pmNote Date/TimeOct2022 7:22pmLe[place] [address] Cardiology Consult Note Signed Patient: Emmanuel Jiménez MR#: [id number] : 1940 Acct:[id number] Age/Sex: 82 / M Adm Date: 3 Loc: Room: [address] [place] [address] Type: ADM IN Attending Dr: Jarred Cline [...] are negative unless noted below or in [facility] Social History Smoking Status: Never smoker [...] <Electronically signed by Haylee Benedict MD> 12/28/22 8209 [facility] Work Phone: 1([phone]) 236-318210-29-2023 History and physical note Author Jarred Cline [facility] December 28, 2022 1:36pmNote Date/TimeOct2022 1:21pmC[place] [id number] Hospitalist H&P Signed Patient: Emmanuel Jiménez MR#: [id number] : 1940 Acct:[id number] Age/Sex: 82 / M Adm Date: 3 Loc: Room: [address] [place] [address] Type: ADM IN Attending Dr: Jarred Cline [...] was transferred here from [facility], he has been feeling exertional dyspnea [...] to the emergency room. He went to [place] [facility] was then transferred back here dueto there being no cardiology services at [place]. Patient denies any cough with his shortness [...] Plan: ? Patient's baseline is unknown, at [place] his creatinine is 1.6, today here it is 1.4 ? Likely secondary to decreased perfusion from bradycardia ? Patient did receive atropine at [place], his heart rate has been improved while [...] <Electronically signed by Jarred Cline DO> 12/28/22 4966 [facility] Work Phone: Discharge summary Author Katie Osborne [facility] December 31, 2022 12:42pmNote Date/TimeNov2022 12:43pmLe[place] [address] Discharge Summary Signed Patient: Emmanuel Jiménez MR#: [id number] : 1940 Acct:[id number] Age/Sex: 82 / M Adm Date: 3 Loc: Room: [address] [place] [address]: Katie Osborne MD Copies to: [...] was transferred here from [facility], he has been feeling exertional dyspnea [...] Sodium 137, Potassium 4.1, Chloride 106, Carbon Lojmuej63.9, Anion Gap 12.2, BUN 23, Creatinine 1.20, Est GFR (CKD- EPI) > 60.0, Glucose 175 H, Calcium 8.9, Magnesium 2.1 12/31/22 06:36: Corrected WBC 6.7, Uncorrected WBC Count 6.7, RBC 4.27, Hgb 13.0, Hct 39.1, MCV 91.5, MCH 30.5, MCHC 33.3, RDW 14.9 H, Plt Count 148 L, MPV 7.2, Neut % (Auto) 61.2, Lymph % (Auto) 27.7, [place] % (Auto) 8.9, Eos % (Auto) 1.6, Baso % (Auto) 0.6, Nucleat RBC Rel Count 0.0, Neut # (Auto) 4.1, Lymph # (Auto) 1.9, [place] # (Auto) 0.6, Eos # (Auto) 0.1, [...] with nurse for incision check in the [facility] Office on - we will call you. 2. Chest x-ray to be done the same day as your device check at [facility] 04/15/2023. 3. Pacemaker/ICD clinic appointment at [facility] on 04/15/2023 at 11:00am . [...] signed by Katie Osborne MD> 12/31/22 1242 [facility] Work Phone: Evaluation note* Diagnosis Onset Date Resolution Status ZAC (acute kidney injury) acuteDiabetes mellitusacuteHTN (hypertension)acuteMobitz type 2 second degree AV blockacute [facility] Work Phone: Evaluation note* Diagnosis AV block, Mobitz II Mobitz (type) II atrioventricular block Pacemaker Cardiac pacemaker in situ Obesity (BMI 30.0-34.9) documented in this [facility] Work Phone: Evaluation note* Diagnosis Acute pain of right shoulder Rotator cuff arthropathy, right Arthritis of right acromioclavicular joint documented in this encounter [facility] HealthcareEvaluation noteNo assessment information availableOhiohealth Pickerington [facility] Work Phone: Evaluation note* Diagnosis Non-ischemic cardiomyopathy (Multi)- Primary Other primary cardiomyopathies AV block, Mobitz II Mobitz (type) II atrioventricular block Pacemaker Cardiac pacemaker in situ Mixed hyperlipidemia BMI 30.0-30.9,adult documented in this [facility] Work Phone: Evaluation note* Diagnosis Type 2 diabetes mell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, without long-term current use of insulin (HCC) ([facility])- Primary Type 2 diabetes mellitus with hyperglycemia, without long-term current use of insulin ([facility]) documented in this encounter [facility] HealthcareEvaluation note* Diagnosis Type 2 diabetes mellitus without complication, unspecified whether long term care phlebotomist insulin use (CMS/HCC)- Primary Pain due to onychomycosis of toenails of both feet documented in this encounter [facility] HealthcareEvaluation note* Diagnosis Type 2 diabetes mell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, without long-term current use of insulin (HCC) (CMS/HCC)- Primary Type 2 diabetes mellitus with hyperglycemia, without long-term current use of insulin (CMS/HCC) Type 2 diabetes mell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, without long-term current use of insulin (HCC) ([facility]) Type 2 diabetes mellitus with hyperglycemia, without long-term current use of insulin (CMS/HCC) documented in this encounter [facility] HealthcareEvaluation note* Diagnosis Type 2 diabetes mell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, without long-term current use of insulin (HCC) ([facility]/HCC)- Primary Type 2 diabetes mellitus with hyperglycemia, without long-term current use of insulin (CMS/HCC) Type 2 diabetes mell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, without long-term current use of insulin (HCC) ([facility]/HCC) Type 2 diabetes mellitus with hyperglycemia, without long-term current use of insulin ([facility]/HCC) Rotator cuff arthropathy, right- Primary Shoulder arthritis Unspecified arthropathy, shoulder region documented in this encounter [facility] HealthcareEvaluation note* Diagnosis Pacemaker- Primary [...] smoked tobacco Overweight documented in this encounter [facility] Work Phone: Evaluation note* Diagnosis Type 2 diabetes mell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, without long-term current use of insulin (HCC) ([facility]) documented in this encounter [facility] HealthcareEvaluation note* Diagnosis Paroxysmal atrial fibrillation [...] risk medication use documented in this encounter [facility] Work Phone: Hospital Discharge instructions Additional [...] with nurse for incision check in the [facility] Office on - 01/08/2023 at 1:30pm. 2. Chest x-ray to be done the same day as your device check at [facility] 04/15/2023. 3. Pacemaker/ICD clinic appointment at [facility] on 04/15/2023 at 11:00am . 4. Office visit with Dr. Moser. [][facility] Work Phone: Reason for referral (narrative)* Consultation (Routine) - AuthorizedSpecialtyDiagnoses / ProceduresReferred By Contact Referred To ContactCardiology Diagnoses AV block, Mobitz II Pacemaker Procedures Follow Up In Cardiology Henrry Purvis MD [address] [facility] 2, [address] [address] Henrry Purvis MD [address], [address] [address] Referral IDStatusReasonStart DateExpiration DateVisits RequestedVisits [id number]/15/202311/ [facility] Work Phone: reason for referral (narrative)* Consultation (Routine) - AuthorizedSpecialtyDiagnoses / ProceduresReferred By Contact Referred To ContactCardiology Diagnoses AV block, Mobitz II Procedures Follow Up In Cardiology Henrry Purvis MD [address] [place] [address], [address] [address] Stephanie Brown MD [address] [place] [address], [address] [address] Referral IDStatusReasonStart DateExpiration DateVisits RequestedVisits [id number]/24/20245/ [facility] Work Phone: Reojeh for referral (narrative)No reason for referral information availableOhiohealth Pickering[facility] Work Phone: Summary Purpose Family History [...] Inj/Asp: R acromioclavicular Negro Brown PA [address] [facility] [address] [place] [address] Referral IDStatusReasonStart DateExpiration DateVisits RequestedVisits [id number] [id number] / Procedures Referred By ContactReferred To ContactOrthopaedic Surgery Diagnoses Rotator cuff arthropathy, right Procedures L Inj/Asp: R subacromial bursa Negro Brown PA [address] [facility] [address] [place] [address] Referral IDStatusReasonStart DateExpiration DateVisits RequestedVisits [id number]/7/20248/5/202411 Additional Source Comments (unrecognized sect ion and content) No Status Records FoundNo Status Records FoundNo Status Records FoundNo Status Records Found INFORMATION SOURCE (unrecogn ized section and content) DATE CREATED AUTHOR 05/25/[address] [facility] DATE CREATED AUTHOR AUTHOR'S ORGANIZ ATION 10/16/2024 [facility] DATE CREATED AUTHOR AUTHOR'S ORGANIZ ATION 10/23/2024 [facility] DATE CREATED AUTHOR AUTHOR'S ORGANIZ ATION 11/15/2024 [facility] Senior Business Manager Teams (unrecognized sec tion and content) Team [...] MDOther ProviderActiveJordan Bolanos MDOther ProviderActiveCarol Josy Woodward GEOLOGICAL DRAFTER-BCOther ProviderActiveLauren Steiner MDOther ProviderActive Team Status: Inactive Member Role Status Dates Hugo Moser JR DO Primary Care Provider Active Jovanna Ramirez ProviderActiveTeam MemberRelationship SpecialtyStart DateEnd Date Hugo Moser DO [facility] [place] [address] PCP - GeneralInternal Tadbahcv20/1/23Team MemberRelationshipSpecialtyStart Date End Date Hugo Moser MD [address] [place] [address] PCP - GeneralInternal Medicine04/08/23 Team Status: Inactive Member Role Status Dates Hugo Moser JR DO Primary Care Provider Active Start: April 15, 2023 End: April 15, 2023Damir Ramirezing ProviderActive Start: April 15, 2023 End: April 15Asia Barth ProviderActiveStart: April 15, 2023 End: April 15, 2023Team MemberRelationshipSpecialtyStart DateEnd Date Hugo Moser DO PCP - GeneralInternal Pcltakgg68/1/23 Team Status: Inactive Member Role Status Dates Hugo Moser JR DO Primary Care Provider Active Start: October 16, 2023 End: October 16, 2023Henrry Purvis MDAttending ProviderActiveStart: October 16, 2023 End: October 16, 2023Team MemberRelationshipSpecialtyStart DateEnd Date Hugo Moser MD [facility] [place], [place] [address] PCP - GeneralInternal Medicine04/08/23Team MemberRelationshipSpecialtyStart Date End Date Hugo Moser MD [address] [place] [address] PCP - GeneralInternal Medicine04/08/23Team MemberRelationshipSpecialtyStart Date End Date Hugo Moser MD [address] [place] [address] PCP - GeneralInternal Medicine04/08/23Team MemberRelationshipSpecialtyStart Date End Date Hugo Moser MD [address] [place] [address] PCP - GeneralInternal Medicine04/08/23Team MemberRelationshipSpecialtyStart Date End Date uHgo Moser MD [facility] [place] [address] PCP - GeneralInternal Medicine04/08/23Team MemberRelationshipSpecialtyStart Date End Date Hugo Moser MD [address] [place] [place] [address] PCP - GeneralInternal Medicine04/08/23Team MemberRelationshipSpecialtyStart Date End Date Hugo Moser MD [address] [facility] [place] [address] PCP - GeneralInternal Medicine04/08/23 MemberRelationshipSpecialtyStart Date End Date Hugo Moser MD [address] [facility] [place] [address] PCP - GeneralInternal Medicine04/08/23Te MemberRelationshipSpecialtyStart Date End Date Hugo Moser MD [address] [facility] [place] [address] PCP - GeneralInternal Medicine04/08/23Te MemberRelationshipSpecialtyStart Date End Date Hugo Moser DO PCP - GeneralInternal Nhssxzte91/1/23 Team Status: Active Member Role Status Dates [...] MemberRelationshipSpecialtyStart DateEnd Date Hugo Moser MD [address] [place] [address] PCP - GeneralInternal Medicine04/08/23Team MemberRelationshipSpecialtyStart Date End Date Hugo Moser MD [facility] [place] [address] PCP - GeneralInternal Medicine04/08/23Team MemberRelationshipSpecialtyStart Date End Date Hugo Moser MD [facility] [place] [address] PCP - GeneralInternal Medicine04/08/23Team MemberRelationshipSpecialtyStart Date End Date Hugo Moser MD [facility] [place] [address] PCP - GeneralInternal Medicine04/08/23 Team Status: Active Member Role Status Dates Hugo Moser JR DO Primary Care Provider Active Start: October 18, 2024 Stephanie Brown MDOther ProviderActiveStart: October 18, 2024 Cristian Teran MDAttending ProviderActiveStart: October 18, 2024 Team MemberRelationshipSpecialtyStart DateEnd Date Hugo Moser DO [facility] [place] [address] PCP - GeneralInternal Medicine11/09/24 Reason for Visit (unrecogniz ed section and content) ReasonCommentsFollow-upSwelling and pain at pacemaker site.Placed 2 weeks ago. SpecialtyDiagnoses / ProceduresReferred By ContactReferred To ContactCardiology Diagnoses AV block, Mobitz II Pacemaker Procedures Follow Up In Cardiology Henrry Purvis MD [address] [facility] [address], [place] [address] Referral IDStatusReasonStart DateExpiration DateVisits RequestedVisits [id number]/15/202311/14/[id number]plg CommentsFollow-up6 monthSpecialtyDiagnoses / ProceduresReferred By Contact Referred To ContactCardiology Diagnoses AV block, Mobitz II Pacemaker Procedures Follow Up In Cardiology Henrry Purvis MD [address] [place] [address], [place] [address] Henrry Purvis MD [address] [place] [address], [place] [address] Referral IDStatusReasonStart DateExpiration DateVisits RequestedVisits [id number]/15/202311/14/[id number]rrqe CommentsDM Foot CareDm nail hrxuNlbaodVlmkylhdEwlbjq-daOxivkeNhtggbpbTfgofx-yx9r SpecialtyDiagnoses / ProceduresReferred By ContactReferred To ContactCardiology Diagnoses AV block, Mobitz II Procedures Follow Up In Cardiology Henrry Purvis MD Ibrahim, Hassan M, MD [address] [place] [address], [place] [address] Phone: tel: fax: Referral IDStatusReasonStart DateExpiration DateVisits RequestedVisits [id number]/24/20245/[id number] DateComments Appointment Atkbzxfjfhot55/14/2025ReasonOnset DateCommentsAppointment Ziykczjohwlh44/19/2025ReasonOnset DateCommentsBlood Sugar Okdtgcd5308/02/2024 ReasonCommentsFollow-up6 month follow up for PacemakerSpecialtyDiagnoses / ProceduresReferred By ContactReferred To ContactCardiology Diagnoses Non-ischemic cardiomyopathy (Multi) Procedures Follow Up In Cardiology Stephanie Brown MD [facility], [address] [address] Phone: tel: fax: Stephanie Brown MD [facility], [facility] [address] [place] [address] Phone: tel: fax: Referral IDStatusReasonStart DateExpiration DateVisits RequestedVisits [id number]/8/20251/8/202611 Goals (unrecognized section and content) Goals may [...] BE BASED ON THE PRIMARY CLINICAL RECORDS. [employer] [facility]. provides no warranty or guarantee of the accuracy or completeness of information in this document.
[2025-02-09] MEDS: CEFAZOLIN SODIUM 2 GM/50 ML D5W PREMIX IV (13:13)
--- NOTE | 2025-02-09 14:46 | P.URON_ITS ---
Urology Surgery Operative Note Operative Note Procedure Date: 02/09/25 Time Out Performed: yes Pre-op Diagnosis: Bladder tumor and obstructed left ureter Post-op Diagnosis: same as pre-op Procedures performed: 1. Cystoscopy. 2. Transurethral resection of large bladder tumor greater than 6 cm. 3. Left ureteroscopy. 4. Placement of 6 [place] variable length left ureteral stent Anesthesia: RICKEY Primary Surgeon: Lazarus Valdez Complications: None Estimated blood loss (mL): 20 Findings: 1. 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 2. Tumor growing over and around the left ureter. 3. No evidence of tumor up the ureter. Specimens: Bladder tumors Drains: 1. 6 [place] variable length left ureteral stent. 2. 20 [place] Danielson catheter in the bladder. Indications for Procedures: This gentleman developed gross hematuria. 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 This is covering the left UO. He now presents for cystoscopy TURBT and left ureteroscopy with stent placement. He has signed an informed consent after all risks were explained. Detailed description of Procedure: The patient was brought to the operating room and placed on the operating room table in the supine position. SCDs were placed on the lower extremities and turned on and functioning during the entire case. Timeout was done by all parties in the room. We all agreed upon the patient's identification and the planned procedures for this patient. Genn. anesthesia was then administered. The patient was then repositioned into the modified dorsal lithotomy position. All pressure points were satisfactorily padded. Genitalia were sterilely prepped and draped in usual fashion. I started by passing a 26 [place] Olympus resectoscope with a standard bipolar loop electrode per urethra and into the bladder. Fortunately, the tumor was not bleeding at this time so I had excellent visibility. I looked all around the bladder and there were no other tumors other than the large 1 covering the left hemitrigone and over the floor and left wall. I began uniformly resecting this large tumor down to its level of origin on the bladder mucosa. Repeated evaluations failed to identify the UO. I had t o resect over the area which I presume the ureter lied. I resected deeply so as to get muscle for accurate staging. I was finally able to actually identify the ureter without cutting through it. There was tumor growing around the circumference of the UO. I was able to carefully resect the tumors around the perimeter of the UO without cutting into the UO. The Elick was used to get all the copious amounts of tumor out. This was sent for permanent sections. All of the resection beds were coagulated. The right UO was identified and uninvolved. Once I had excellent hemostasis I then removed the resectoscope and then passed a 22 [place] Olympus cystoscope into the bladder. I then slid a Glidewire through an open-ended catheter up to the left ureter. The catheter and scope were then removed. I then passed a semirigid ureteroscope adjacent to the wire and into the left ureter. Fortunately, there was no evidence of tumor ascending up the left ureter. The ureteroscope was then removed. I then backloaded the cystoscope over the wire and passed it into the bladder and then slid a 6 [place] variable length stent over the wire up to the kidney. The wire was removed and there were good curls in the kidney and in the bladder. The resectoscope was then passed back in the bladder and I did some more coagulating. After verifying there were no tumors remaining in the bladder, also there was no bleeding, I then remove the resectoscope after draining the bladder. The anesthetic was then reversed. He was then transferred to a [facility] and wheeled to PACU in stable condition. Urinary Catheter Management Urinary Catheter Management Urethral: Cath placed during this visit: no
--- NOTE | 2025-02-09 16:37 | PC.NURSE ---
At discharge this advertising copy writer told patients brother in law that patient was told in PAT yesterday that he cannot be left alone for 24 hours post procedure. I explained it is a safety concern and they would need to make arrangements for the night.
== END 2025-02-09 16:20 | disposition home or self-care (01) ==
PROVIDERS: PCP Internal Medicine; Visit Provider Urology
PROC: (CPT 52235; principal; 2025-02-09 12:30)
DX: C67.9 Malignant neoplasm of bladder, unspecified (principal); R31.0 Gross hematuria; N40.1 Benign prostatic hyperplasia with lower urinary tract symptoms; I10 Essential (primary) hypertension; E11.9 Type 2 diabetes mellitus without complications; Z95.0 Presence of cardiac pacemaker; Z87.440 Personal history of urinary (tract) infections; Z79.01 Long term (current) use of anticoagulants; Z79.84 Long term (current) use of oral hypoglycemic drugs; E78.5 Hyperlipidemia, unspecified; I48.91 Unspecified atrial fibrillation; I44.1 Atrioventricular block, second degree; Z87.442 Personal history of urinary calculi
CPT/HCPCS: 52235; 52332; 52351; 36415; 76000; 82948; 88307; J0690; J1100; J2405; J2704; J3010

== ENCOUNTER 2025-02-13 17:00 | Emergency (ER) | payer MEDICARE, SELFPAY ==
--- OUTSIDE RECORDS SUMMARY | 2025-02-10 19:28 | XMS_ITS | Continuity of Care Document ---
Author Organization [facility] Address [address] [place] [address] Phone Care Team Providers Care Salt Grinder Name Role Phone Lazarus Valdez MD Attending Provider Care Teams Patient Care Team Team Status: Inactive Member Role/Relationship Status Dates Lazarus Valdez MD Attending Provider Active St art: February 09, 2025 End: February 09, 2025 Chief Complaint and Reason for Visit Chief Complaint Admit Date Unknown February 09, 2025 2:19pm Allergies, Adverse Reactions, Alerts Allergen Type Severity Reaction Last Updated Verified Status No Known Drug Allergies Allergy Unknown Unknown Reaction December 28, 2022 9:05am Yes Active Social History Smoking Status Status Start Date End Date Date of Observa tion Never smoked tobacco (finding) December 30, 2022 3:12pm Observation Status Observation Response Date of Response Legal Sex Male (finding) Sex Assigned At [facility] 1940 Problems Inactive/Resolved Problems Problem Diagnosis/Recorded Date Onset Date Status C omments ZAC (acute kidney injury) December 28, 2022 12:33pm Unknown Resolved Probl em List clean-up per request of Phys. EHR Cmte Symptomatic bradycardia December 29, 2022 12:55pm Unknown Resolved Symptomatic bradycardiaDecember 31, 2022 11:38amUnknownResolvedProblem List clean-up per request of Phys. EHR CmteDiabetes mellitusOctober 2022 12:33pmUnknownResolvedProblem List clean-up per request of Phys. EHR CmteMobitz type 2 second degree AV blockOctober 2022 1:15pmUnknownResolvedProblem List clean-up per request of Phys. EHR CmteAV block, 2nd degreeOctober 2022 12:33pmUnknownResolvedHTN (hypertension)December 28, 2022 12:33pmUnknown ResolvedProblem List clean-up per request of Phys. EHR Cmte Medications Medication Status Dose Units Route Directions Qty Days Refills S tart Date Stop Date End Date Reason(s) Instructions Adherence Ezetimibe 10 mg tablet Active 10 MG PO Daily December 27, 2022 11:00pmUnknownSitagliptin Phos-Metformin (Janumet Xr) 100- 1,000 mg tablet, ER multiphase 24 dgEggmub897 - 1000TABPODailyOct2022 11:00pmUnknownEmpagliflozin (Jardiance) 25 mg ybazhzCzfpdd49RLMYYlubkCzpvviy 28th, 2023 11:00pmUnknownSacubitril-Valsartan (Entresto) 24-26 mg TabletActive1 TABPODailyOctlourdes hospital 2022 11:00pmUnknownRosuvastatin 40 mg BjepvwZbsyxy25FMQY DailyOct2022 11:00pmUnknownAcarbose 100 mg qpbmwkCdzwyf731GTYZYzkyn December 27, 2022 11:00pmUnknownRivaroxaban (Xarelto) 20 mg tabletActiveMG December 29, 2022 11:00pmUnknownClindamycin Hcl 300 mg kmzvincEdrpho012JNTT Three times ubqbk4312Smyzktd 31st, 2023 11:00pmUnknown Medical Equipment Device Date Implanted Device Details Endocardial pacing lead December 30, 2022 JUANCARLOS: [id number] Issuing Agency: [facility] Device Id: [id number] Expiration Date: 2025-06-29 Serial Number: [id number] pacing leadOctober 2022UDI: [id number] Issuing Agency: 1 Device Id: [id number] Expiration Date: 2025-09-29 Serial Number: [id number] implantable pacemaker, rate-responsive December 30, 2022UDI: ()[id number] Issuing Agency: [employer] Device Id: [id number] Expiration Date: 2024-04-29 Serial Number: [id number] Advance Directives Advance Directive Response Recorded Date/ Time Advance Directives No December 28, 2022 12:49am Insurance Providers Guarantor Emmanuel Jiménez Address [address] [place] [address]Ueognme Info.Home Phone: Payer Group Member ID Coverage Type Subscriber Relationship to Subscriber Effective Date Expiration Date Medicare [id number] [place] Id: [id number] [address] [place] [address] Home Phone: [facility] Id: Iam [id number] [place] Id: [id number] [address] [place] [address] Home Phone: Sel Encounters Encounter Location(s) Arrival/Admit Date Discharge/Departure Date Discharge/Departure Disposition Provider(s) Departed Referred -[facility] February 09, 2025 2:19pm February 09, 2025 2:20pm Discharged to home care or self care (routine discharge) Lazarus Valdez MD
[2025-02-13 17:06] VITALS: BP 167/65; PULSE 70; TEMP 36.7; O2SAT 99; BMI 29.1
--- NOTE | 2025-02-13 17:22 | ED.GENADUL1 ---
HPI HPI - General Adult General Chief complaint: Recheck/Abnormal Lab/Rx Stated complaint: CHECK CATHETER Time Seen by Provider: 02/13/25 17:14 Source: patient Mode of arrival: walk-in History of Present Illness HPI narrative: The patient had a Danielson catheter placed almost 4 days ago after he had a bladder tumor removal as well as obstructed left ureter relieve The patient mentioned that he seen some leaking from his catheter at least twice since he was discharged, the patient denies any abdominal pain no fever no chills he mentioned that sometimes he feels like there is pressure when he is standing up that is pulling on his catheter Related Data Home Medications ?Medication ?Instructions ?Recorded ?Confirmed acarbose 100 mg tablet 100 mg PO BID 03/19/24 02/13/25 ezetimibe 10 mg tablet 10 mg PO DAILY 03/19/24 02/13/25 finerenone 20 mg tablet (Kerendia) 20 mg PO DAILY 03/19/24 02/13/25 metformin 1,000 mg tablet 500 mg PO BID 03/19/24 02/13/25 rosuvastatin 40 mg tablet 40 mg PO DAILY 03/19/24 02/13/25 doxycycline hyclate 100 mg capsule 100 mg PO Q12H 02/08/25 02/13/25 empagliflozin 25 mg tablet 25 mg PO DAILY 02/08/25 02/13/25 (Jardiance) Held on 02/13/25. Instructions: per doctor order insulin lispro protamine-lispro 40 unit subcut .morning 02/08/25 02/09/25 100 unit/mL (75-25) subcutaneous pen nystatin 100,000 unit/gram topical 1 applic topical DAILY 02/08/25 02/13/25 cream cholecalciferol (vitamin D3) 50 2,000 unit PO DAILY 02/13/25 02/13/25 mcg (2,000 unit) capsule Allergies Allergy/AdvReac Type Severity Reaction Status Date / Time No Known Drug Allergies Allergy Verified 02/13/25 17:05 Opioid HPI Opioid Management Most Recent Opioid Data: Last Pain Scale 3 02/09/25, 16:20 Last Pain Assessment 02/09/25, 16:20 Review of Systems ROS Status of ROS 10 or more systems reviewed and unremarkable except as noted in history and below 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 - Rheumatic tricuspid insufficiency (ICD-10) AV block, Mobitz II ?I44.1 - Atrioventricular block, second degree (ICD-10) Non-ischemic cardiomyopathy ?I42.8 - Other cardiomyopathies (ICD-10) Atrial fibrillation ?I48.91 - Unspecified atrial fibrillation (ICD-10) Pacemaker ?Z95.0 - Presence of cardiac pacemaker (ICD-10) Hyperlipidemia ?E78.5 - Hyperlipidemia, unspecified (ICD-10) History of kidney stones ?Z87.442 - Personal history of urinary calculi (ICD-10) Diabetes ?E11.9 - Type 2 diabetes mellitus without complications (ICD-10) BPH (benign prostatic hyperplasia) ?N40.0 - Benign prostatic hyperplasia without lower urinary tract symptoms (ICD-10) Anticoagulated ?Z79.01 - halfway (current) use of anticoagulants (ICD-10) Bladder tumor ?D49.4 - Neoplasm of unspecified behavior of bladder (ICD-10) Junctional bradycardia ?R00.1 - Bradycardia, unspecified (ICD-10) Acute UTI ?N39.0 - Urinary tract infection, site not specified (ICD-10) Hematuria ?R31.9 - Hematuria, unspecified (ICD-10) Surgical History (Updated 02/08/25 @ 08:47 by Dorinda Morales RN) H/O lithotripsy ?Z98.890 - Other specified postprocedural states (ICD-10) H/O cystoscopy ?Z98.890 - Other specified postprocedural states (ICD-10) Family History (Updated 02/08/25 @ 08:46 by Dorinda Morales, RN) Other Family history of diabetes mellitus Social History (Updated 02/08/25 @ 08:46 by Dorinda Morales, RN) Within the past year, how often did you have a drink containing alcohol: never Score interpretation: A score less than 4 is consistent with normal alcohol consumption. Smoking status: Never smoker Non-prescribed substance use: denies use Previous occupational history: retired Highest level of school completed/degree received: some college, no degree Little interest or pleasure in doing things: not at all Feeling down, depressed, or hopeless: not at all Exam Narrative Exam Narrative: Nurses notes and vital signs reviewed and patient is not hypoxic. General: Well-appearing and in no apparent distress. Skin: Warm, dry, no pallor noted. No rash. Head: Normocephalic, atraumatic. GI: Abdomen is soft, non-distended. Normal bowel sounds. No masses appreciated. No tenderness to palpation. No rebound, guarding, or rigidity noted. Danielson catheter in place but it was noted that it was not fixed to his leg properly Neurological: A&O x4. No cranial nerve dysfunction observed. No truncal ataxia. Moves all extremities. Sensation intact. Psychiatric: Cooperative and interactive. Normal mood and affect. Constitutional Vital Signs, click to edit/add: Last Vital Signs Temp 98.0 F 02/13/25 17:06 Pulse 70 02/13/25 17:06 Resp 16 02/13/25 17:06 BP 167/65 H 02/13/25 17:06 Pulse Ox 99 02/13/25 17:06 O2 Del Method Room Air 02/13/25 17:06 Course Vital Signs Vital signs: Vital Signs Temperature 98.0 F 02/13/25 17:06 Pulse Rate 70 02/13/25 17:06 Respiratory Rate 16 02/13/25 17:06 Blood Pressure 167/65 H 02/13/25 17:06 Pulse Oximetry 99 02/13/25 17:06 Oxygen Delivery Method Room Air 02/13/25 17:06 Temperature 98.0 F 02/13/25 17:06 Pulse Rate 70 02/13/25 17:06 Respiratory Rate 16 02/13/25 17:06 Blood Pressure 167/65 H 02/13/25 17:06 Pulse Oximetry 99 02/13/25 17:06 Oxygen Delivery Method Room Air 02/13/25 17:06 Medical Decision Making [facility] Narrative Medical decision making narrative: The patient Danielson catheter was evaluated in the ER and it was not leaking and it was working properly but it was not fixed to his left leg and we did attach his catheter to the left leg properly The patient instructed that he need to contact Dr. Valdez and he was provided with the information for further evaluation I did explain to him that the leak sometimes could be due to spasm but due to the fact that this just happened twice over the last few days I will just make sure that he follow-up with Dr. Valdez for now for the evaluation The patient to follow-up with the primary care within 2 to 3 days and to come back to the ER in case of any worsening of the current symptoms or any new symptoms or concerns Discharge Plan Discharge Chief Complaint: Recheck/Abnormal Lab/Rx Clinical Impression: Leakage from urinary catheter Patient Disposition: Home, Self-Care Time of Disposition Decision: 17:53 Condition: Good Prescriptions / Home Meds: No Action acarbose 100 mg tablet 100 mg PO BID metformin 1,000 mg tablet 500 mg PO BID ezetimibe 10 mg tablet 10 mg PO DAILY rosuvastatin 40 mg tablet 40 mg PO DAILY Kerendia 20 mg tablet 20 mg PO DAILY cholecalciferol (vitamin D3) 50 mcg (2,000 unit) capsule 2,000 unit PO DAILY doxycycline hyclate 100 mg capsule 100 mg PO Q12H nystatin 100,000 unit/gram cream 1 applic TOPICAL DAILY Jardiance 25 mg tablet 25 mg PO DAILY insulin lispro protamin-lispro 100 unit/mL (75-25) insulin pen 40 unit SUBCUT .morning Print Language: Lithuanian Instructions: Danielson Catheter Placement and Care (ED) Referrals: KEN MOSER DO [Primary Care Provider, Family Practice] - 1 week Lazarus Valdez MD [Physician, Urology] - 1 week Discharge Date/Time: 02/13/25 18:11
== END 2025-02-13 18:11 | disposition home or self-care (01) ==
PROVIDERS: Emergency Provider Emergency Medicine; PCP Internal Medicine
DX: T83.038A Leakage of other urinary catheter, initial encounter (principal)
CPT/HCPCS: 99281